=== PATIENT | female | born 1950 | race Caucasian/White ===

== ENCOUNTER 2018-01-01 12:15 | Day surgery (SDC) | payer OTHER ==
[2017-12-28 11:42] LABS: Absolute Monocytes 0.5 K/uL (0.1-1.3); Absolute Neutrophil 3.2 K/uL (1.8-8.0); Basophils % 0.9 % (0-1.3); Eosinophils % 4.1 % (0-4.4); Hematocrit 37.4 % (36.0-45.0); Lymphocytes % 33.7 % (15.3-44.8); MCH 30.9 pg (27.0-35.0); MCV 92.6 fL (80-100); MPV 10.2 fL (7.6-11.3); Monocytes % 8.2 % (3.3-12.3); RBC Red Blood Cell Count 4.04 M/uL (3.86-4.86)
--- NOTE | 2017-12-28 12:46 | EKG ---
Test Date: 2017-12-28 Test Time: 10:47:32 Registered Diet Technician: HAY MEASUREMENT RESULTS: Intervals: Rate: 60 LA: 146 QRSD: 80 QT: 428 QTc: 428 [place]: P: -1 LA: 146 QRS: 5 T: 23 INTERPRETIVE STATEMENTS: Normal sinus rhythm Normal ECG Compared to ECG 03/20/2017 10:32:27 No significant changes Electronically Signed On 12-28-17 12:45:51 CDT by Yamil Zamarripa
--- OUTSIDE RECORDS SUMMARY | 2018-01-01 12:20 | XMS REPORT | Clinical Summary ---
:1950 Author Organization [facility] Address [address] [place] [address] Phone Care Team Providers Name Role Phone Unavailable Primary Care Provider Unavailable Allergies Active Allergy Reactions Severity Noted Date Comments Meperidine 02/09/2017 Adhesive Tape 02/09/2017 Not allergic to paper tape. Current Medications Prescription Sig. Disp. Refills Start Date End Date Status tolterodine (DETROL LA) 4 Take 4 mg by mouth Active MG 24 hr capsule daily. levothyroxine (SYNTHROID, Take 75 mcg by Active LEVOTHROID) 75 MCG tablet mouth Every morning on an empty stomach. lansoprazole (PREVACID) Take 30 mg by mouth Active 30 MG capsule daily. aspirin 81 MG EC tablet Take 81 mg by mouth Active daily. clonazePAM (KLONOPIN) 0.5 Take 0.5 mg by Active MG tablet mouth 2 (two) times daily as needed for Anxiety. buPROPion (WELLBUTRIN XL) Take 300 mg by Active 300 MG 24 hr tablet mouth daily. citalopram (CELEXA) 40 MG Take 40 mg by mouth Active tablet daily. traMADol (ULTRAM-ER) 100 Take 100 mg by Active MG 24 hr tablet mouth daily. gabapentin (NEURONTIN) Take 300 mg by Active 300 MG capsule mouth 3 (three) times daily. meloxicam (MOBIC) 7.5 MG Take 7.5 mg by Active tablet mouth daily. HYDROcodone-acetaminophen Take 1 tablet by Active (NORCO 7.5-325) 7.5-325 mouth every 6 (six) mg per tablet hours as needed for Pain. TiZANidine (ZANAFLEX) 4 Take 4 mg by mouth Active MG capsule 3 (three) times daily. memantine (NAMENDA) 10 MG Take 10 mg by mouth Active tablet 2 (two) times daily. Missing or Non-Formulary laxative . Active Medication Active Problems Not on file Encounters Date Type Specialty Care Team Description 02/09/2017 Emergency Emergency Medicine Antonietta Alvarez Anxiety reaction MD Alexandre (Primary Dx);Shaking 02/09/2017 Orders Only General Internal Medicine after 12/31/2016 Social History Tobacco Use Types Packs/Day Years Used Date Never Smoker Smokeless Tobacco: Never Used Alcohol Use Drinks/Week oz/Week Comments No Sex Assigned at Date Recorded Not on file Last Filed Vital Signs Vital Sign Reading Time Taken Blood Pressure 120/63 02/09/2017 7:55 PM CDT Pulse 65 02/09/2017 7:59 PM CDT Temperature 36.7 C (98.1 F) 02/09/2017 7:59 PM CDT Respiratory Rate 18 02/09/2017 4:50 PM CDT Oxygen Saturation 97% 02/09/2017 7:59 PM CDT Inhaled Oxygen Concentration - - Weight 106.6 kg (235 lb) 02/09/2017 4:14 PM CDT Height 165.1 cm (5' 5") 02/09/2017 4:14 PM CDT Body Mass Index 39.11 02/09/2017 4:14 PM CDT Plan of Treatment Not on file Results CT brain without IV contrast (02/09/2017 6:46 PM) Specimen Performing Laboratory RIS Narrative FINAL REPORT CT Head without contrast CLINICAL HISTORY: Seizures new or progressive headache Episode of Care: Initial TECHNIQUE: Contiguous axial images through the head without contrast. This exam was performed according to the departmental dose optimization program which includes automated exposure control, adjustment of the mA and/or kV according to the patient size, and/or use of an iterative reconstruction technique. COMPARISON: None FINDINGS: There is no CT evidence of acute infarct or intracranial hemorrhage. There is no hydrocephalus, midline shift, or apparent mass effect. There are no extra-axial fluid collections. The skull is intact. The visualized paranasal sinuses are well-aerated. IMPRESSION: No CT evidence of acute infarct, hemorrhage, or hydrocephalus. Signed: Devorah Smith MD Report Verified Date/Time:02/09/2017 18:57:54 Reading Location: [facility] Radiology Reading Room Procedure Note Interface, External Ris In - 02/09/2017 7:00 PM CDT FINAL REPORT CT Head without contrast CLINICAL HISTORY: Seizures new or progressive headache Episode of Care: Initial TECHNIQUE: Contiguous axial images through the head without contrast. This exam was performed according to the departmental dose optimization program which includes automated exposure control, adjustment of the mA and/or kV according to the patient size, and/or use of an iterative reconstruction technique. COMPARISON: None FINDINGS: There is no CT evidence of acute infarct or intracranial hemorrhage. There is no hydrocephalus, midline shift, or apparent mass effect. There are no extra-axial fluid collections. The skull is intact. The visualized paranasal sinuses are well-aerated. IMPRESSION: No CT evidence of acute infarct, hemorrhage, or hydrocephalus. Signed: Devorah Smith MD Report Verified Date/Time: 02/09/2017 18:57:54 Reading Location: [facility] Radiology Reading Room Urinalysis w/Microscopic (02/09/2017 6:28 PM) Component Value Ref Range Color, UA Light Yellow Clarity, UA Clear Specific [place], UA 1.006 1.001 - 1.035 pH, UA 6.5 5.0 - 8.0 Protein, UA Negative Negative Glucose, UA Negative Negative Ketones, UA Negative Negative Bilirubin, UA Negative Negative Blood, UA Negative Negative Nitrite, UA Negative Negative Leukocytes, UA Trace (A) Negative Urobilinogen, UA 0.2 0.2 - 1.0 mg/dL RBC, UA <1 /HPF WBC, UA 2 /HPF Squam Epithel, UA 1 /HPF Specimen Source Urine, Voided Specimen Performing Laboratory Urine - Urine, Voided [facility] [address] [address] XR chest PA or AP 1 view in dept (02/09/2017 4:43 PM) Specimen Performing Laboratory GE RIS Narrative FINAL REPORT TECHNIQUE: Frontal chest radiograph dated 02/09/2017. CLINICAL HISTORY: Chest pain COMPARISON STUDY: None IMPRESSION: Prominent interstitial lung markings are seen, a nonspecific finding, due to either interstitial edema or pneumonitis. No focal consolidation. No pleural effusion or pneumothorax. Cardiomediastinal silhouette is normal in size. No pulmonary edema. Midline sternotomy ires are intact and well aligned. No fracture. Signed: Rabia Benjamin MD Report Verified Date/Time:02/09/2017 16:55:35 Reading Location: [facility] Radiology Reading Room Procedure Note Interface, External Ris In - 02/09/2017 4:57 PM CDT FINAL REPORT TECHNIQUE: Frontal chest radiograph dated 02/09/2017. CLINICAL HISTORY: Chest pain COMPARISON STUDY: None IMPRESSION: Prominent interstitial lung markings are seen, a nonspecific finding, due to either interstitial edema or pneumonitis. No focal consolidation. No pleural effusion or pneumothorax. Cardiomediastinal silhouette is normal in size. No pulmonary edema. Midline sternotomy ires are intact and well aligned. No fracture. Signed: Rabia Benjamin MD Report Verified Date/Time: 02/09/2017 16:55:35 Reading Location: [facility] Radiology Reading Room /aPTT (02/09/2017 4:21 PM) Component Value Ref Range Protime 14.1 11.7 - 14.7 seconds INR 1.1 <=5.9 PTT 29.8 22.5 - 36.0 seconds Specimen Performing Laboratory Blood - Line, [place] [address] Narrative RECOMMENDED COUMADIN/WARFARIN INR THERAPY RANGES STANDARD DOSE: 2.0 - 3.0 Includes: PROPHYLAXIS for venous thrombosis, systemic embolization; TREATMENT for venous thrombosis and/or pulmonary embolus. HIGH RISK: Target INR is 2.5-3.5 for patients with mechanical heart valves. CBC with platelet count + automated diff (02/09/2017 4:21 PM) Component Value Ref Range WBC 6.3 3.5 - 10.5 K/L RBC 3.63 (L) 3.93 - 5.22 M/L Hemoglobin 11.4 11.2 - 15.7 GM/DL Hematocrit 35.5 34.1 - 44.9 % MCV 97.8 (H) 79.4 - 94.8 fL MCH 31.4 25.6 - 32.2 pg MCHC 32.1 (L) 32.2 - 35.5 GM/DL RDW 13.4 11.7 - 14.4 % Platelets 149 (L) 150 - 450 K/CU MM MPV 11.5 9.4 - 12.3 fL nRBC 0 0 - 0 /100 WBC % Neutros 47 % % Lymphs 39 % % Monos 9 % % Eos 4 % % Baso 1 % # Neutros 2.95 1.56 - 6.13 K/L # Lymphs 2.43 1.18 - 3.74 K/L # Monos 0.55 (H) 0.24 - 0.36 K/L # Eos 0.26 0.04 - 0.36 K/L # Baso 0.06 0.01 - 0.08 K/L Immature Granulocytes-Relative 0 0 - 1 % Specimen Performing Laboratory Blood - Line, Venous [address] [address] Troponin I (02/09/2017 4:21 PM) Component Value Ref Range Troponin I <0.01 0.00 - 0.03 ng/mL Specimen Performing Laboratory Blood - Line, [address] [address] Narrative Troponin I (TnI) levels must be interpreted in the context of the presenting symptoms and the clinical findings. Elevated TnI levels indicate myocardial damage, but are not specific for ischemic heart disease. Elevated TnI levels are seen in patients with other cardiac conditions (including myocarditis and congestive heart failure), and slight TnI elevations occur in patients with other conditions, including sepsis, renal failure, acidosis, acute neurological disease, and persistent tachyarrhythmia. CBC with platelet count + automated diff (02/09/2017 4:21 PM) Specimen Performing Laboratory Blood Narrative The following orders were created for panel order CBC with platelet count + automated diff. Procedure Abnormality Status --------- ------ CBC with platelet count ...[[id number]]AbnormalFinal result Please view results for these tests on the individual orders. Creatine Kinase (CK), Total and MB (02/09/2017 4:21 PM) Component Value Ref Range Total CK 108 29 - 200 U/L CK-MB 0.8 0.0 - 6.6 ng/mL MB Relative Index 0.7 % Specimen Performing Laboratory Blood - Line, Venous [address] [address] Narrative CK-MB Reference Range: <6.7Normal 6.7-10.0Borderline >10.0 Abnormal Basic Metabolic Panel (02/09/2017 4:21 PM) Component Value Ref Range Sodium 142 136 - 145 meq/L Potassium 4.4 3.5 - 5.1 meq/L Chloride 107 98 - 107 meq/L CO2 29 22 - 29 meq/L BUN 12 7 - 21 mg/dL Creatinine 1.17 0.57 - 1.25 mg/dL Glucose 96 70 - 105 mg/dL Calcium 9.1 8.4 - 10.2 mg/dL EGFR Comment: INSUFFICIENT CLINICAL DATA TO CALCULATE mL/min/1.73 sq m ESTIMATED GFR. Specimen Performing Laboratory Blood - Line, Venous [address] [address] POC-Glucose meter (02/09/2017 4:20 PM) Component Value Ref Range POC-Glucose Meter 105Comment: TESTED AT [address] 70 - 110 mg/dL [id number] Specimen Performing Laboratory Blood [address] [address] ECG 12 lead (02/09/2017 4:17 PM) Specimen Performing Laboratory GE MUSE Narrative Ventricular Rate 72 BPM Atrial Rate 340 BPM P-R Interval 110 ms QRS Duration 76 ms Q-T Interval 406 ms QTC Calculation(Bazett) 444 ms P [place] -30 degrees R [place] 0 degrees T [place] 5 degrees Poor data quality, interpretation may be adversely affected Atrial flutter Nonspecific ST abnormality Abnormal ECG No previous ECGs available Confirmed by Rosie Edwards Alireaz ([id number]) on 02/10/2017 10:38:52 AM Procedure Note Interface, External Ris In - 02/10/2017 10:39 AM CDT Ventricular Rate 72 BPM Atrial Rate 340 BPM P-R Interval 110 ms QRS Duration 76 ms Q-T Interval 406 ms QTC Calculation(Bazett) 444 ms P [place] -30 degrees R [place] 0 degrees T [place] 5 degrees Poor data quality, interpretation may be adversely affected Atrial flutter Nonspecific ST abnormality Abnormal ECG No previous ECGs available Confirmed by Rosie Edwards Alireaz ([id number]) on 02/10/2017 10:38:52 AM after 12/31/2016
--- OUTSIDE RECORDS SUMMARY | 2018-01-01 12:34 | XMS REPORT | Continuity of Care Document ---
:1950 Author Organization Interface Problems Problem Status Onset Classification Date Comments Source Date Reported SBO Active 01/03/[address] DECONDITIONED Active 05/31/19 MH 14 [facility] ABDOMINAL PAIN, Active 05/30/19 HERNIA 14 [facility] AF - Atrial Active 09/14/19 Problem 01/07/2016 fibrillation 12 [facility] AF - Atrial Active 09/14/19 Problem 09/23/2011 fibrillation 12 [facility] Central line Active 09/11/19 Problem 01/07/2016 insertion 12 [facility] Endotracheal Active 09/11/19 Problem 01/07/2016 intubation 12 [facility] Central line Active 09/11/19 Problem 09/23/2011 insertion 12 [facility] Endotracheal Active 09/11/19 Problem 09/23/2011 intubation 12 [facility] [D]Abdominal pain Active 09/10/19 Problem 01/07/2016 12 [facility] Low blood pressure Active 09/10/19 Problem 01/07/2016 12 [facility] [D]Abdominal pain Active 09/10/19 Problem 09/23/2011 12 [facility] Low blood pressure Active 09/10/19 Problem 09/23/2011 12 [facility] Hernia repair Active 09/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/07/2016 12 [facility] Lysis of adhesions Active 09/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/07/2016 12 [facility] Panniculectomy Active 09/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/07/2016 12 [facility] Recurrent ventral Active 09/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/07/2016 hernia 12 [facility] Hernia repair Active 09/09/19 Problem 09/23/2011 12 [facility] Lysis of adhesions Active 09/09/19 Problem 09/23/2011 12 [facility] Panniculectomy Active 09/09/19 Problem 09/23/2011 12 [facility] Recurrent ventral Active 09/09/19 Problem 09/23/2011 hernia 12 [facility] INCISIONAL HERNIA Active 08/26/19 [id number] [id number] [place] [address] 789.06/787.01 Active 06/24/[address] Cholecystectomy Active Problem 01/07/2016 [facility] Depression Resolved Problem 01/07/2016 [facility] Gastric stapling Active Problem 01/07/2016 [facility] HTN - Hypertension Active Problem 01/07/2016 [facility] Hypothyroidism Resolved Problem 01/07/2016 [facility] 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 [facility] PUD - Peptic ulcer Active Problem 01/07/2016 disease [facility] Small bowel Resolved Problem 01/07/2016 [facility] Cholecystectomy Active Problem 09/23/2011 [facility] Gastric stapling Active Problem 09/23/2011 [facility] HTN - Hypertension Active Problem 09/23/2011 [facility] Idiopathic Active Problem 09/23/2011 hypotension [facility] PUD - Peptic ulcer Active Problem 09/23/2011 disease [facility] INCISIONAL HERNIA Active [facility] VENTRAL HERNIA NOS Active [facility] ILLNESS, Active [facility][note 3] UNSPECIFIED [facility] PAIN IN LIMB Active [facility] Medications Medication Details Route Status Patient Ordering Order Source Instructions Provider Date tolterodine 4 mg, 1 cap, No Longer Route: PO, Drug Active 2015 [facility] form: CAP, [facility] Daily, Dosing Weight 105.625, kg, Start date: 01/05/16 9:00:00 CDT, Duration: 30 day, Stop date: 02/03/16 9:00:00 CDT Synthroid 50 microgram, 1 No Longer tab, Route: PO, Active 2015 [facility] Drug form: TAB, [facility] Daily, Dosing Weight 105.625, kg, Start date: 01/05/16 9:00:00 CDT, Duration: 30 day, Stop date: 02/03/16 9:00:00 CDTNotes: Take 1 hour before or 2 hours after meal; Enteral feeds may interefere with the absorption of this medication.(Jhonatan e as:Levothroid, Synthroid) Bupropion 150 mg, 1 tab, No Longer Route: PO, Drug Active 2015 [facility] form: ERTAB, [facility] Daily, Dosing Weight 105.625, kg, Start date: 01/05/16 9:00:00 CDT, Duration: 30 day, Stop date: 02/03/16 9:00:00 CDT Citalopram 60 mg, 3 tab, No Longer Route: PO, Drug Active 2015 [facility] form: TAB, [facility] Daily, Dosing Weight 105.625, kg, Start date: 01/05/16 9:00:00 CDT, Duration: 30 day, Stop date: 02/03/16 9:00:00 CDTNotes: (Same As: CeleXA) Trazodone 100 mg, 2 tab, Inactive Hydrochloride Route: PO, Drug 2015 [facility] 100 MG Oral form: TAB, [facility] Tablet Bedtime, Dosing Weight 105.625, kg, Start date: 01/04/16 21:00:00 CDT, Duration: 30 day, Stop date: 02/02/16 21:00:00 CDTNotes: (Same As: Desyrel) tizanidine 4 mg, 1 tab, Inactive Route: PO, Drug 2015 [facility] form: TAB, [facility] Q12H, Dosing Weight 105.625, kg, Start date: 01/04/16 21:00:00 CDT, Duration: 30 day, Stop date: 02/03/16 9:00:00 CDTNotes: (Same As: Zanaflex) tizanidine 4 mg 4 mg=1 tab, PO, Active oral tablet Q12H, 0 2015 [facility] Refill(s) [facility] gabapentin 300 300 mg, 1 cap, Inactive MG Oral Capsule Route: PO, Drug 2015 [facility] form: CAP, QID, [facility] Dosing Weight 105.625, kg, Start date: 01/04/16 17:00:00 CDT, Duration: 30 day, Stop date: 02/03/16 13:00:00 CDTNotes: (Same as: Neurontin) Bisacodyl 10 mg, 2 tab, Inactive Route: PO, Drug 2015 [facility] form: ECTAB, [place] Daily, Dosing Weight 105.625, kg, PRN Constipation, Start date: 01/04/16 15:49:00 CDT, Duration: 30 day, Stop date: 02/03/16 15:48:00 CDT Clonazepam 0.5 mg, 1 tab, Inactive Route: PO, Drug 2015 [facility] form: TAB, TID, [facility] Dosing Weight 105.625, kg, Start date: 01/04/16 9:00:00 CDT, Duration: 30 day, Stop date: 02/02/16 17:00:00 CDTNotes: (Same As: KlonoPIN) Tylenol 650 mg, 20.3 Inactive mL, Route: PO, 2015 [facility] Drug form: LIQ, [facility] Q4H, Dosing Weight 105.625, kg, PRN Headache 1-5, Start date: 01/04/16 2:51:00 CDT, Duration: 30 day, Stop date: 02/03/16 2:50:00 CDTNotes: Max acetaminophen=4 000mg/day (4 gm/day). (Same as: Tylenol) Tylenol 650 mg, 2 tab, Inactive Route: PO, Drug 2015 [facility] form: TAB, [facility] ONCE, Dosing Weight 105.625, kg, PRN Headache 1-5, Start date: 01/03/16 22:02:00 CDT, Stop date: 02/02/16 22:01:00 CDTNotes: Do not exceed 4 gm/day. (Same as: Tylenol) Benadryl 25 mg, 0.5 mL, Inactive Route: IVP, 2015 [facility] Drug form: INJ, [facility] ONCE, Dosing Weight 105.625, kg, PRN Insomnia, Start date: 01/03/16 21:02:00 CDTNotes: (Same as: Benadryl) phenol 1 spray, Route: No Longer TOP, Daily, Active 2015 [facility] Drug form: [place] SPRY, PRN Sore Throat, Start date: 01/03/16 20:57:00 CDT, Duration: 30 day, Stop date: 02/02/16 20:56:00 CDTNotes: Chloraseptic [place] (Same as: Chloraseptic, Sore Throat [place]) WASTE: F/P - Black; E - Municipal Trash Bin Saline Flush 10 mL, Route: No Longer 0.9% IVP, Drug Form: Active 2015 [facility] INJ, Dosing [place] Weight 105.625, kg, Q8H, Start date: 01/03/16 16:00:00 CDT, Duration: 30 day, Stop date: 02/02/16 8:00:00 CDTNotes: (Same as: BD Posiflush) Lidocaine 5 mL, Route: No Longer 01/02/ Hydrochloride INTRADERM, Drug Active 2015 [facility] 10 MG/ML Form: INJ, [place] Injectable Dosing Weight Solution 105.625, kg, ONCALL, Start date: 01/03/16 14:00:00 CDT, Duration: 30 day, Stop date: 02/02/16 13:59:00 CDTNotes: Preservative free. (Same as: Xylocaine MPF) Sodium Chloride 25 mL, Route: No Longer 01/02/ 0.9% IV IVP, Start Active 2015 [facility] date: 01/03/16 [facility] 13:57:00 CDT, Duration: 30 day, Stop date: 02/02/16 13:56:00 CDT, PRN Line Flush BD Normal 10 mL, Route: No Longer MH Saline Flush IVP, Drug Form: Active 2015 [facility] INJ, PRN, PRN [place] Line Flush, Start date: 01/03/16 13:57:00 CDT, Duration: 30 day, Stop date: 02/02/16 13:56:00 CDTNotes: (Same as: BD Posiflush) BD Normal 5 mL, Route: No Longer MH Saline Flush IVP, Drug Form: Active 2015 [facility] INJ, PRN, PRN [place] Line Flush, Start date: 01/03/16 13:56:00 CDT, Duration: 30 day, Stop date: 02/02/16 13:55:00 CDTNotes: (Same as: BD Posiflush) Saline Flush 10 mL, Route: Inactive 0.9% IVP, Drug Form: 2015 [facility] INJ, Dosing [place] Weight 105.625, kg, PRN, PRN Line Flush, Start date: 01/03/16 13:52:00 CDT, Duration: 30 day, Stop date: 02/02/16 13:51:00 CDT BD Normal 5 mL, Route: No Longer MH Saline Flush IVP, Drug Form: Active 2015 [facility] INJ, PRN, PRN [place] Line Flush, Start date: 01/03/16 13:35:00 CDT, Duration: 30 day, Stop date: 02/02/16 13:34:00 CDTNotes: (Same as: BD Posiflush) Sodium Chloride 25 mL, Route: No Longer 0.9% IV IVP, Start Active 2015 [facility] date: 01/03/16 [facility] 13:35:00 CDT, Duration: 30 day, Stop date: 02/02/16 13:34:00 CDT, PRN Line Flush D5W 1/2NS + KCL 1,000 mL, Rate: No Longer 20mEq/L 1000ml 75 ml/hr, Active 2015 [facility] (Premix) 1,000 Infuse over: City mL 13.3 hr, Route: IV, Dosing Weight 105.625 kg, Total Volume: 1,000, Start date: 01/03/16 13:31:00 CDT, Stop date: 02/02/16 13:30:00 CDTNotes: PREMIX IV - Do Not Alter WASTE: F/P - Sink; E - Municipal Trash Bin Saline Flush 10 mL, Route: Inactive 0.9% IVP, Drug Form: 2015 [facility] INJ, Dosing [facility] Weight 105.625, kg, PRN, PRN Line Flush, Start date: 01/03/16 13:30:00 CDT, Duration: 30 day, Stop date: 02/02/16 13:29:00 CDT Morphine 10 mg, 1 mL, Inactive Route: IM, Drug 2015 [facility] form: INJ, [facility] ONCE, Dosing Weight 105.625, kg, Priority: STAT, Start date: 01/03/16 13:26:00 CDT, Stop date: 01/03/16 13:26:00 CDTNotes: (Same as:MORPhine Sulfate) Pepcid 20 mg, 2 mL, No Longer Route: IVP, Active 2015 [facility] Drug form: INJ, [facility] Q12H, Start date: 01/03/16 9:00:00 CDT, Duration: 30 day, Stop date: 02/01/16 21:00:00 CDTNotes: (Same as: Pepcid) Can be dilute in 5-10cc NS IVP: Slow IV push over at least 2 minutes. Protonix 40 mg, Route: Inactive IVP, Daily, 2015 [facility] Dosing Weight [facility] 105.625, kg, Patient is NPO, Start date: 01/03/16 9:00:00 CDT, Duration: 30 day, Stop date: 02/01/16 9:00:00 CDT Enoxaparin 40 mg, 0.4 mL, No Longer Route: SUB-Q, Active 2015 [facility] Drug form: INJ, [facility] [id number], Dosing Weight 105.625, kg, Consider for obese patients, Start date: 01/03/16 4:00:00 CDT, Duration: 30 day, Stop date: 02/01/16 16:00:00 CDTNotes: (Same as: Lovenox) Citalopram 60 mg, PO, Active Daily, 0 2015 [facility] Refill(s) [facility] tolterodine 4 4 mg=1 cap, PO, Active mg oral Daily, # 30 [facility] capsule, cap, 1 [facility] extended Refill(s) release gabapentin 300 300 mg=1 cap, Active MG Oral Capsule PO, QID, 0 2015 [facility] Refill(s) [facility] Hydroxyzine 25 mg=1 cap, Active Hydrochloride PO, Bedtime, 2016 [facility] 25 MG Oral PRN Insomnia, 0 [facility] Capsule Refill(s) Trazodone 100 mg=1 tab, Active Hydrochloride PO, Bedtime, # 2016 [facility] 100 MG Oral 30 tab, 0 [facility] Tablet Refill(s) tizanidine 4 mg 8 mg=2 tab, PO, No Longer oral tablet Q8H, # 180 tab, Active 2015 [facility] 0 Refill(s) [facility] meloxicam 7.5 7.5 mg=1 tab, No Longer mg oral tablet PO, Daily, # 30 Active 2015 [facility] tab, 0 [facility] Refill(s) Acetaminophen 1 tab, PO, Q6H, No Longer 325 MG / PRN Pain, # 60 Active 2015 [facility] Hydrocodone tab, 0 [facility] Bitartrate 7.5 Refill(s) MG Oral Tablet bisacodyl 5 mg 10 mg=2 tab, Active oral enteric PO, Daily, PRN 2016 [facility] coated tablet Constipation, # City 20 tab, 0 Refill(s) Bupropion 150 mg, PO, 0 Active Refill(s) 2015 [facility] clonazePAM 0.5 0.5 mg=1 tab, No Longer mg oral tablet PO, Q6H, PRN Active 2015 [facility] Anxiety, 0 [place] Refill(s) Saline Flush 10 ml, Route: Inactive 0.9% IVP, Drug Form: 2015 [facility] INJ, Dosing [place] Weight 105.625, kg, PRN, PRN Line Flush, Start date: 01/03/16 3:12:00 CDT, Duration: 30 day, Stop date: 02/02/16 3:11:00 CDTNotes: (Same as: BD Posiflush) Ondansetron 4 mg, 2 mL, No Longer Route: IVP, Active 2015 [facility] Drug form: INJ, [place] Q6H, Dosing Weight 105.625, kg, PRN Nausea & Vomiting, Start date: 01/03/16 3:12:00 CDT, Duration: 30 day, Stop date: 02/02/16 3:11:00 CDTNotes: (Same as: Zofran) MEDICATION WASTE Product Size: 4 mg Product Wasted: ___ mg Morphine 4 mg, 1 mL, No Longer Route: IVP, Active 2015 [facility] Drug form: INJ, [place] Q4H, Dosing Weight 105.625, kg, PRN Pain Score 7-10, Start date: 01/03/16 3:12:00 CDT, Stop date: 02/02/16 3:11:00 CDTNotes: (Same as:MORPhine Sulfate) Sodium Chloride 1,000 mL, Rate: Inactive 0.154 MEQ/ML 125 ml/hr, 2015 [facility] Injectable Infuse over: 8 [place] Solution hr, Route: IV, Dosing Weight 105.625 kg, Total Volume: 1,000, Start date: 01/03/16 3:12:00 CDT, Duration: 30 day, Stop date: 02/02/16 3:11:00 CDT Lidoderm 5% 1 patch, TOP, Active Estephania topical film Daily, Remove [address] [place] [address] (patch) after 12 hours, # 30 patch, 0 Refill(s), given to patientRemove after 12 hours citalopram 20 20 mg=1 tab, Active Ajmani [facility] mg oral tablet PO, BID-After 2013 Meals, # 60 tab, 0 Refill(s), given to patient rivastigmine =1 patch, TOP, Active Anigbogu 06/20/ MH 4.6 mg/24 hr Daily, # 30 2013 [facility] transdermal patch, 0 film, extended Refill(s) release mirtazapine 15 7.5 mg=0.5 tab, Active Anigbogu 06/20/ MH mg oral tablet PO, Bedtime, # 2013 30 tab, 0 Refill(s) Exelon 4.6 mg, 1 No Longer Raichman patch, Route: Active 2013 [facility] TOP, Drug form: ERFILM, Daily, Start date: 06/17/13 9:00:00, Duration: 30 day, Stop date: 07/16/13 9:00:00Same as Exelon "Remove old patch before application of new patch" Lidoderm 5% 1 patch, Route: No Longer Anigbogu topical film TOP, Daily, Active 2013 [facility] (patch) Drug form: FILM, Start date: 06/17/13 9:00:00, Duration: 30 day, Stop date: 07/16/13 9:00:00, Remove after 12 hoursRemove after 12 hoursApply only once for up to 12 hours in a 24-hour period (12 hours on and 12 hours off). (Same as: Lidoderm) "Remove old patch before application of new patch" CeleXA 20 mg, 1 tab, No Longer Raichman Route: PO, Drug Active 2013 [facility] form: TAB, BID-After Meals, Start date: 06/17/13 8:30:00, Duration: 30 day, Stop date: 07/16/13 13:00:00(Same As: CeleXA) Remeron 7.5 mg, 0.5 No Longer Anigbogu MH tab, Route: PO, Active 2013 [facility] Drug form: TAB, Bedtime, Start date: 06/15/13 21:00:00, Duration: 30 day, Stop date: 07/14/13 21:00:00(Same as:Remeron) Singulair 10 mg, 1 tab, No Longer Anigbogu Route: PO, Drug Active 2013 [facility] form: TAB, Bedtime, Start date: 06/14/13 21:00:00, Duration: 30 day, Stop date: 07/13/13 21:00:00(Same as:Singulair) fluticasone 2 inhalation, No Longer Anigbogu nasal 0.05 Route: NASAL, Active 2013 [facility] mg/inh spray Drug Form: SPRY, BID, Start date: 06/14/13 9:00:00, Duration: 30 day, Stop date: 07/13/13 17:00:00(Same as: Flonase) Claritin 10 mg, 1 tab, No Longer Anigbogu Route: PO, Drug Active 2013 [facility] form: TAB, Daily, Start date: 06/14/13 9:00:00, Duration: 30 day, Stop date: 07/13/13 9:00:001 hr before meals (Same as: Claritin) polyethylene 17 gm, 1 pkt, No Longer Anigbogu glycol 3350 Route: PO, Drug Active 2013 [facility] form: PWDR, Daily, Dosing Weight 105.455, kg, Start date: 06/14/13 9:00:00, Duration: 30 day, Stop date: 07/13/13 9:00:00Dissolve in 8 oz of water or juice. (Same as: Miralax) Senokot 8.6 mg, 1 tab, No Longer Anigbogu Route: PO, Drug Active 2013 [facility] form: TAB, BID, Start date: 06/14/13 9:00:00, Duration: 30 day, Stop date: 07/13/13 17:00:00(Same as: Senokot) PROzac 40 mg, 2 cap, No Longer Anigbogu Route: NG, Drug Active 2013 [facility] form: CAP, Daily, Start date: 06/14/13 9:00:00, Duration: 30 day, Stop date: 07/13/13 9:00:00(Same as: Prozac, Sarafem) Mycelex Shaina 10 mg, 1 No Longer Anigbogu lozenge, Route: Active 2013 [facility] MUCOUS MEM, Drug form: WINSTON, TID, Start date: 06/14/13 8:00:00, Duration: 30 day, Stop date: 07/13/13 21:00:00(Same As: Mycelex Shaina) Levothroid 50 microgram, 1 No Longer Anigbogu tab, Route: PO, Active 2013 [facility] Drug form: TAB, [id number], Start date: 06/14/13 6:30:00, Duration: 30 day, Stop date: 07/13/13 6:30:00Take 1 hour before or 2 hours after meal; Enteral feeds may interefere with the absorption of this medication.(Jhonatan e as:Levothroid, Synthroid) vancomycin 750 mg, 150 mL, No Longer Anigbogu Route: IVPB, Active 2013 [facility] Drug form: SOLN, [id number], Start date: 06/14/13 3:00:00, Duration: 30 day, Stop date: 07/13/13 18:00:00Same as: Vancocin Lovenox 40 mg, 0.4 mL, No Longer Anigbogu Route: SUB-Q, Active 2013 [facility] Drug form: INJ, [id number], Start date: 06/13/13 23:00:00, Duration: 30 day, Stop date: 07/12/13 23:00:00(Same as: Lovenox) Restoril 15 mg, 1 cap, No Longer Anigbogu Route: PO, Drug Active 2013 [facility] form: CAP, Bedtime, PRN Sleep, Start date: 06/13/13 21:37:00, Duration: 30 day, Stop date: 07/13/13 21:36:00(Same As: Restoril) Ativan 1 mg, 2 tab, No Longer Anigbogu Route: PO, Drug Active 2013 [facility] form: TAB, Q4H, PRN Anxiety, Start date: 06/13/13 21:31:00, Stop date: 07/13/13 21:30:00(Same as: Ativan) acetaminophen-h 1 tab, Route: No Longer Anigbogu ydrocodone 325 PO, Drug Form: Active 2013 [facility] mg-5 mg oral TAB, Dosing tablet Weight 105.455, kg, Q4H, PRN Pain Score 1-3, Start date: 06/13/13 21:01:00, Duration: 30 day, Stop date: 07/13/13 21:00:00(Same as: [place] 325/5) Do not exceed 4gm/day of acetaminophen. acetaminophen 650 mg, 2 tab, No Longer Anigbogu Route: PO, Drug Active 2013 [facility] form: TAB, Q4H, Dosing Weight 105.455, kg, PRN Pain Score 1-3, Start date: 06/13/13 21:01:00, Duration: 30 day, Stop date: 07/13/13 21:00:00Do not exceed 4 gm/day. (Same as: Tylenol) Saline Flush 3 mL, Route: No Longer Anbogu 0.9% IVP, Drug Form: Active 2013 [facility] INJ, Dosing Weight 105.455, kg, Q8H, PRN Line Flush, Start date: 06/13/13 21:01:00, Duration: 30 day, Stop date: 07/13/13 21:00:00, Administer at least once every 8 hoursAdminister at least once every 8 hours(Same as: BD Posiflush) bisacodyl 10 mg, 1 supp, No Longer Anigbogu Route: SD, Drug Active 2013 [facility] form: SUPP, Bedtime, Dosing Weight 105.455, kg, PRN Constipation, Start date: 06/13/13 21:01:00, Duration: 30 day, Stop date: 07/13/13 21:00:00(Same As: Dulcolax, Bisco-Lax) temazepam 15 mg 15 mg=1 cap, Active Estephania oral capsule PO, Bedtime, 2013 [facility] Sleep, # 5 cap, 0 Refill(s) vancomycin 750 1,054.55 mg, Active Shanekai mg intravenous IV, Q24H, # 14 2013 [facility] injection bag, 0 Refill(s), called to pharmacy senna 8.6 mg 8.6 mg=1 tab, [facility] PO, BID, # 36 2013 [facility] tab, 0 Refill(s) LORazepam 1 mg 1 mg=1 tab, PO, Active mani MH oral tablet Q4H, Anxiety, # 2014 [facility] 10 tab, 0 Refill(s) loratadine 10 10 mg=1 tab, Active [facility] oral tablet PO, Daily, # 20 2013 [facility] tab, 0 Refill(s) fluticasone 100 microgram=2 Active [facility] nasal 0.05 inhalation, 2013 [facility] mg/inh spray NASAL, BID, # 1 ea, 0 Refill(s) enoxaparin 40 40 mg=0.4 mL, Active [facility] mg/0.4 mL SUB-Q, Q24H, # 2013 [facility] subcutaneous 30 mL, 0 solution Refill(s) clotrimazole 10 10 mg=1 Active [facility] mg oral lozenge lozenge, MUCOUS 2013 [facility] MEM, TID, # 90 lozenge, 0 Refill(s) clonazePAM 0.5 0.5 mg=1 tab, Active [facility] mg oral tablet PO, Daily, # 30 2013 [facility] tab, 0 Refill(s), called to pharmacy acetaminophen 650 mg=2 tab, Active [facility] 325 mg oral PO, Q6H, Pain, 2013 [facility] tablet # 50 tab, 0 Refill(s), called to pharmacy acetaminophen-h 1 tab, PO, Q4H, Active [facility] ydrocodone 325 Pain, # 12 tab, 2014 [facility] mg-10 mg oral 0 Refill(s), tablet called to pharmacy tolterodine 4 4 mg=1 cap, PO, Active [facility] mg oral Daily, # 30 2013 [facility] capsule, cap, 0 extended Refill(s), release called to pharmacy Lovenox 40 mg, 0.4 mL, No Longer [facility] Route: SUB-Q, Active 2013 [facility] Drug form: INJ, Q24H, Start date: 06/11/13 23:00:00, Duration: 30 day, Stop date: 07/10/13 23:00:00(Same as: Lovenox) acetaminophen-h 1 tab, Route: No Longer ydrocodone 325 PO, Drug Form: Active 2013 [facility] mg-5 mg oral TAB, ONCALL, tablet PRN Pain, Start date: 06/11/13 18:45:00, Duration: 30 day, Stop date: 07/11/13 18:44:00(Same as: [place] 325/5) Do not exceed 4gm/day of acetaminophen. Claritin 10 mg, 1 tab, No Longer Route: PO, Drug Active 2013 [facility] form: TAB, Daily, Start date: 06/11/13 9:00:00, Duration: 30 day, Stop date: 07/10/13 9:00:001 hr before meals (Same as: Claritin) Senokot 8.6 mg, 1 tab, No Longer Route: PO, Drug Active 2013 [facility] form: TAB, BID, Start date: 06/11/13 9:00:00, Duration: 30 day, Stop date: 07/10/13 17:00:00(Same as: Senokot) Mycelex Shaina 10 mg, 1 No Longer lozenge, Route: Active 2013 [facility] MUCOUS MEM, Drug form: WINSTON, TID, Start date: 06/10/13 21:00:00, Duration: 30 day, Stop date: 07/10/13 12:00:00(Same As: Mycelex Shaina) Singulair 10 mg, 1 tab, No Longer Route: PO, Drug Active 2013 [facility] form: TAB, Bedtime, Start date: 06/10/13 21:00:00, Duration: 30 day, Stop date: 07/09/13 21:00:00(Same as:Singulair) acetaminophen-h 1 tab, Route: No Longer ydrocodone 325 PO, Drug Form: Active 2013 [facility] mg-10 mg oral TAB, Q4H, PRN tablet Pain, Start date: 06/10/13 20:32:00, Duration: 30 day, Stop date: 07/10/13 20:31:00Do not exceed 4gm/day of acetaminophen. (Same as: [place] 325/10) Ativan 1 mg, 1 tab, No Longer Shaneka Route: PO, Drug Active 2013 [facility] form: TAB, Q4H, PRN Anxiety, Start date: 06/10/13 20:32:00, Duration: 30 day, Stop date: 07/10/13 20:31:00(Same as: Ativan) potassium 20 mEq, 100 mL, Inactive cinthia chloride Route: IVPB, 2013 [facility] Drug form: INJ, Q2H, Start date: 06/09/13 21:00:00, Duration: 2 doses or times, Stop date: 06/09/13 23:00:00(Same as: KCL) Infuse no faster than 10 mEq/hr if given peripherally. fluticasone 2 inhalation, No Longer hSaneka nasal 0.05 Route: NASAL, Active 2013 [facility] mg/inh spray Drug Form: SPRY, BID, Start date: 06/08/13 9:00:00, Duration: 30 day, Stop date: 07/07/13 17:00:00(Same as: Flonase) Benadryl 25 mg, 0.5 mL, No Longer [place]ka Route: IV, Drug Active 2013 [facility] form: INJ, Q12H, Start date: 06/07/13 21:00:00, Stop date: 07/07/13 9:00:00(Same as: Benadryl) amino acids 5% 2,000 mL, Rate: No Longer cinthiai w/Lytes/D15W 75 ml/hr, Active 2013 [facility] 2000ml Infuse over: (clinimixE) 26.8 hr, Route: 2,000 mL + IV, Dosing thiamine 100 mg Weight 105.455 + folic acid 1 kg, Total mg + phyto Volume: 2,011.3, Start date: 06/07/13 21:00:00, Duration: 30 day, Stop date: 07/07/13 20:59:00Same as: Clinimix E 5/15 Standard electrolytes for this formulation listed on bag fat emulsion, 250 mL, 31.25 No Longer intravenous ml/hr, Route: Active 2013 [facility] IV, Drug Form: INJ, Daily, Start date: 06/07/13 21:00:00, Duration: 30 day, Stop date: 07/06/13 21:00:00(Same as: Intralipid, Liposyn) potassium 40 mEq, 200 mL, Inactive chloride Route: IVPB, 2013 [facility] Drug form: INJ, ONCE, Start date: 06/07/13 20:02:00, Stop date: 06/07/13 20:02:00(Same as: KCL) Infuse no faster than 10 mEq/hr if given peripherally. Lasix 40 mg, 4 mL, Inactive Route: IV, Drug 2013 [facility] form: INJ, ONCE, Start date: 06/07/13 20:01:00, Stop date: 06/07/13 20:01:00(Same as: Lasix) nystatin susp nystatin susp No Longer 30 ml+lidocaine 30 ml+lidocaine Active 2013 [facility] visc 30 ml visc 30 ml, 5 mL, Drug form: MISC, Route: S&SWALLOW, Q3H-WA, 06/07/13 20:00:00, Stop date: 07/07/13 17:00:00 Lovenox 100 mg, 1 mL, No Longer Route: SUB-Q, 2013 [facility] Drug form: INJ, [id number], Start date: 06/07/13 20:00:00, Duration: 30 day, Stop date: 07/06/13 20:00:00Nurse to ensure documentation of patient education per anticoagulation policy. (Same as: Lovenox) Diflucan 200 mg, 100 mL, No Longer Route: IVPB, Active 2013 [facility] Drug form: INJ, [id number], Start date: 06/07/13 20:00:00, Duration: 30 day, Stop date: 07/06/13 20:00:00(Same as: Diflucan) Do not refrigerate amino acids 1,000 mL, Rate: No Longer 4.25% 90 ml/hr, Active 2013 [facility] w/Lytes/D5W Infuse over: 1000ml 11.1 hr, Route: (clinimixE) IV, Dosing 1,000 mL Weight 105.455 kg, Total Volume: 1,000, Start date: 06/07/13 12:26:00, Stop date: 06/08/13 21:00:00Same as: ClinimixE vancomycin 750 mg, 150 mL, No Longer Route: IVPB, Active 2013 [facility] Drug form: SOLN, [id number], Start date: 06/06/13 15:00:00, Duration: 30 day, Stop date: 07/06/13 3:00:00Same as: Vancocin Maxipime + 2 gm, Route: No Longer Sodium Chloride IVPB, [id number], Active 2013 [facility] 0.9% IV 100 mL Start date: 06/06/13 14:00:00, Duration: 30 day, Stop date: 07/06/13 6:00:00(Same as: Maxipime) Tylenol 650 mg, 1 supp, No Longer [place] Route: SD, Drug Active 2013 [facility] form: SUPP, Q4H, PRN Pain/Fever, Start date: 06/06/13 13:03:00, Stop date: 07/06/13 13:02:00Max acetaminophen=4 000 mg/day (4 gm/day). (Same as: Tylenol) Lasix 40 mg, 4 mL, Inactive [facility] Route: IV, Drug 2013 [facility] form: INJ, ONCALL, Start date: 06/06/13 13:00:00, Duration: 30 day, Stop date: 07/06/13 12:59:00(Same as: Lasix) Lasix 40 mg, 4 mL, Inactive [facility] Route: IV, Drug 2013 [facility] form: INJ, ONCE, Start date: 06/06/13 12:03:00, Stop date: 06/06/13 12:03:00(Same as: Lasix) potassium 40 mEq, 200 mL, Inactive [facility] chloride Route: IVPB, 2013 [facility] Drug form: INJ, ONCE, Start date: 06/06/13 12:03:00, Stop date: 06/06/13 12:03:00(Same as: KCL) Infuse no faster than 10 mEq/hr if given peripherally. Ativan 1 mg, 0.5 mL, No Longer Estephania Route: IV, Drug Active 2013 [facility] form: INJ, Q6H, Start date: 06/06/13 0:00:00, Duration: 30 day, Stop date: 07/05/13 18:00:00(Same as: Ativan) Venofer + 100 mg, 5 mL, No Longer Estephania Sodium Chloride Route: IV, Active 2013 [facility] 0.9% IV 100 mL Q24H, Start date: 06/05/13 21:00:00, Duration: 30 day, Stop date: 07/04/13 21:00:00 amino acids 1,000 mL, Rate: No Longer [place] 4.25% 90 ml/hr, Active 2013 [facility] w/Lytes/D5W Infuse over: 1000ml 11.1 hr, Route: (clinimixE) IV, Dosing 1,000 mL Weight 105.455 kg, Total Volume: 1,000, Start date: 06/05/13 20:40:00, Duration: 30 day, Stop date: 07/05/13 20:39:00Same as: ClinimixE ceFAZolin 2 gm, 100 mL, No Longer [place] Route: IVPB, Active 2013 [facility] Drug form: INJ, [id number], Start date: 06/05/13 20:00:00, Duration: 30 day, Stop date: 07/05/13 12:00:00Same as: Ancef promethazine 6.25 mg, Route: Inactive Nawaf IVPB, ONCE, 2013 [facility] Dosing Weight 105.455, kg, PRN Nausea & Vomiting, Start date: 06/05/13 17:43:00 ondansetron 4 mg, 2 mL, Inactive Nawaf Route: IVP, 2013 [facility] Drug form: INJ, ONCE, Dosing Weight 105.455, kg, PRN Nausea & Vomiting, Start date: 06/05/13 17:43:00(Same as: Zofran) naloxone 0.04 mg, 0.1 Inactive Nawaf mL, Route: IVP2013 [facility] Drug form: INJ, Q2MIN, Dosing Weight 105.455, kg, PRN Narcotic Reversal, Start date: 06/05/13 17:43:00, Duration: 8 doses or times, Stop date: 06/05/13 23:00:00(Same as: Narcan) flumazenil 0.2 mg, 2 mL, Inactive [place] 06/05[facility] Route: IVP2013 [facility] Drug form: INJ, PRN, Dosing Weight 105.455, kg, PRN Benzodiazepine Reversal, Initial dose, Start date: 06/05/13 17:43:00, Stop date: 06/05/13 23:00:00(Same as: Romazicon) meperidine 12.5 mg, Route: Inactive [place] 06/05[facility] IVP, Q30Min, 2013 [facility] Dosing Weight 105.455, kg, PRN Other -See Comment, For shivering, Start date: 06/05/13 17:43:00, Duration: 2 doses or times, Stop date: Limited # of times labetalol 10 mg, 2 mL, Inactive [place] 06/05[facility] Route: IVP2013 [facility] Drug form: INJ, Q5Min, Dosing Weight 105.455, kg, PRN Elevated BP, Start date: 06/05/13 17:43:00, Duration: 5 doses or times, Stop date: 06/05/13 23:00:00 hydrALAZINE 10 mg, 0.5 mL, Inactive [place] 06/05[facility] Route: IVP2013 [facility] Drug form: INJ, Q20Min, Dosing Weight 105.455, kg, PRN Elevated BP, Start date: 06/05/13 17:43:00, Duration: 2 doses or times, Stop date: 06/05/13 23:00:00(Same as: Apresoline) Push over 5 minutes hydromorphone 0.5 mg, 0.5 mL, Inactive [place] 06/05[facility] Route: IVP2013 [facility] Drug form: INJ, Q5Min, Dosing Weight 105.455, kg, PRN Pain Score 7-10, Start date: 06/05/13 17:43:00, Duration: 4 doses or times, Stop date: 06/05/13 23:00:00 fentanyl 25 microgram, Inactive [place] 0.5 mL, Route: 2013 [facility] IVP, Drug form: INJ, Q5Min, Dosing Weight 105.455, kg, PRN Pain Score 4-6, Start date: 06/05/13 17:43:00, Duration: 4 doses or times, Stop date: 06/05/13 23:00:00(Same as: Sublimaze) Preservative free. acetaminophen 1,000 mg, 100 Inactive [place] mL, Route: 2013 [facility] IVPB, Drug form: INJ, ONCE, Dosing Weight 105.455, kg, PRN Pain Score 1-3, Start date: 06/05/13 17:43:00, Duration: 1 doses or times, Stop date: Limited # of timesInfuse over 15 minutes Do not exceed 4gm/day of acetaminophen Protonix 40 mg, Route: No Longer [place] IVP, Drug form: Active 2013 [facility] INJ, Before Dinner, Dosing Weight 105.455, kg, Patient is NPO, Start date: 06/05/13 16:39:00, Duration: 30 day, Stop date: 07/05/13 16:30:00For IV push reconstitute with 10 ml 0.9% sodium chloride and push over 2 minutes. (Same as: Protonix) Lovenox 40 mg, 0.4 mL, No Longer [place] Route: SUB-Q, Active 2013 [facility] Drug form: INJ, [id number], Dosing Weight 105.455, kg, Start date: 06/05/13 16:00:00, Duration: 30 day, Stop date: 07/04/13 16:00:00(Same as: Lovenox) Ancef 2 gm, Route: Inactive [place] IVPB, [id number], 2013 [facility] Dosing Weight 105.455, kg, Start date: 06/05/13 16:00:00, Duration: 30 day, Stop date: 07/05/13 8:00:00 Zofran 4 mg, 2 mL, No Longer [place] Route: IV, Drug Active 2013 [facility] form: INJ, Q8H, Dosing Weight 105.455, kg, PRN Nausea, Start date: 06/05/13 15:42:00, Duration: 30 day, Stop date: 07/05/13 15:41:00(Same as: Zofran) fluorescein 500 mg, 5 mL, No Longer Ajmani ophthalmic Route: IV, Active 2013 [facility] ONCALL, Drug form: INJ, Start date: 06/05/13 12:00:00, Duration: 30 day, Stop date: 07/05/13 11:59:00(Same as: Fluorescite) Dulcolax 40 mg, 4 supp, Inactive Ajmani Laxative Route: SD, Drug 2013 [facility] form: SUPP, ONCE, Start date: 06/05/13 9:43:00, Stop date: 06/05/13 9:43:00(Same As: Dulcolax, Bisco-Lax) Klonopin 0.5 mg, 1 tab, No Longer Ajmani Route: PO, Drug Active 2013 [facility] form: TAB, Daily, Start date: 06/05/13 9:00:00, Duration: 30 day, Stop date: 07/04/13 9:00:00(Same As: Klonopin) Dulcolax 40 mg, 4 supp, Inactive Ajmani Laxative Route: SD, Drug 2013 [facility] form: SUPP, ONCE, Start date: 06/05/13 8:07:00, Stop date: 06/05/13 8:07:00(Same As: Dulcolax, Bisco-Lax) magnesium 4 gm, 100 mL, No Longer Ajmani sulfate Route: IVPB, Active 2013 [facility] Drug form: INJ, ONCALL, Start date: 06/05/13 8:00:00, Duration: 30 day, Stop date: 07/05/13 7:59:00 potassium 20 mEq, 100 mL, Inactive mani chloride Route: IVPB, 2013 [facility] Drug form: INJ, Q2H, Start date: 06/05/13 8:00:00, Duration: 2 doses or times, Stop date: 06/05/13 10:00:00(Same as: KCL) Infuse no faster than 10 mEq/hr if given peripherally. Dulcolax 10 mg, 1 supp, Inactive Ajmani Laxative Route: SD, Drug 2013 [facility] form: SUPP, ONCE, Start date: 06/05/13 7:38:00, Stop date: 06/05/13 7:38:00(Same As: Dulcolax, Bisco-Lax) morphine 4 mg, 1 mL, No Longer bAby Sulfate Route: IV, Drug Active 2013 [facility] form: INJ, Q2H, PRN Pain Score 6-10, Start date: 06/04/13 22:25:00, Stop date: 07/04/13 22:24:00(Same as:MORPhine Sulfate) Ativan 1 mg, 0.5 mL, No Longer Estephania Route: IV, Drug Active 2013 [facility] form: INJ, Q4H, PRN Agitation, Start date: 06/04/13 22:03:00, Duration: 30 day, Stop date: 07/04/13 22:02:00(Same as: Ativan) Klonopin 1 mg, 2 tab, Inactive Estephania Route: PO, Drug 2013 [facility] form: TAB, ONCE, Start date: 06/04/13 22:00:00, Stop date: 06/04/13 22:00:00(Same As: Klonopin) Ancef + Sodium 1 gm, Route: No Longer Abby Chloride 0.9% IVPB, [id number], Active 2013 [facility] IV 100 mL Dosing Weight 105.455, kg, Start date: 06/04/13 20:00:00, Duration: 30 day, Stop date: 07/04/13 12:00:00(Same As: Ancef, Kefzol) Dextrose 5% 1,000 mL, Rate: No Longer Abby with 0.45% NaCl 125 ml/hr, Active 2013 [facility] IV 1,000 mL + Infuse over: 8 potassium hr, Route: IV, chloride 10 mEq Dosing Weight 105.455 kg, Total Volume: 1,005, Start date: 06/04/13 15:57:00, Duration: 30 day, Stop date: 07/04/13 15:56:00 ondansetron 4 mg, 2 mL, Inactive Andres Route: IVP, 2013 [facility] Drug form: INJ, ONCE, Dosing Weight 105.455, kg, PRN Nausea & Vomiting, Start date: 06/04/13 15:50:00(Same as: Zofran) naloxone 0.04 mg, 0.1 Inactive Andres mL, Route: IVP2013 [facility] Drug form: INJ, Q2MIN, Dosing Weight 105.455, kg, PRN Narcotic Reversal, Start date: 06/04/13 15:50:00, Duration: 8 doses or times, Stop date: 06/04/13 23:00:00(Same as: Narcan) flumazenil 0.2 mg, 2 mL, Inactive Andres Route: IVP2013 [facility] Drug form: INJ, PRN, Dosing Weight 105.455, kg, PRN Benzodiazepine Reversal, Initial dose, Start date: 06/04/13 15:50:00, Duration: 30 day, Stop date: 07/04/13 15:49:00(Same as: Romazicon) acetaminophen 1,000 mg, 100 Inactive Andres mL, Route: 2013 [facility] IVPB, Drug form: INJ, ONCE, Dosing Weight 105.455, kg, PRN Pain Score 1-3, Start date: 06/04/13 15:50:00, Duration: 1 doses or times, Stop date: Limited # of timesInfuse over 15 minutes Do not exceed 4gm/day of acetaminophen morphine 2 mg, 1 mL, Inactive Andres Sulfate Route: IVP2013 [facility] Drug form: INJ, Q5Min, Dosing Weight 105.455, kg, PRN Pain Score 4-6, Start date: 06/04/13 15:50:00, Duration: 5 doses or times, Stop date: 06/04/13 23:00:00(Same as:MORPhine Sulfate) GoLYTELY 4,000 ml, Inactive Abby Route: NG, Drug 2013 [facility] Form: PDR/REC, Dosing Weight 105.455, kg, ONCE, Start date: 06/04/13 15:25:00, Duration: 1 doses or times, Stop date: 06/04/13 15:25:00(polyet hylene glycol electrolyte solution 4 Liter bottle) (Same as: Golytely, Colyte) D5W 1/2NS + KCL 1,000 mL, Rate: Inactive Abby 10mEq/L 1000ml 125 ml/hr, 2013 [facility] (Premix) 1000 Infuse over: 8 mL hr, Route: IV, Dosing Weight 105.455 kg, Total Volume: 1,000, Start date: 06/04/13 15:24:00, Duration: 30 day, Stop date: 07/04/13 15:23:00 morphine 2 mg, 1 mL, No Longer Abby Sulfate Route: IVP, Active 2013 [facility] Drug form: INJ, Q4H, Dosing Weight 105.455, kg, PRN Pain, Start date: 06/04/13 15:19:00, Duration: 30 day, Stop date: 07/04/13 15:18:00(Same as:MORPhine Sulfate) GoLYTELY 4,000 ml, Inactive [place] Route: PO, Drug 2013 [facility] Form: PDR/REC, Dosing Weight 105.455, kg, ONCE, Start date: 06/04/13 13:00:00, Duration: 1 doses or times, Stop date: 06/04/13 13:00:00(polyet hylene glycol electrolyte solution 4 Liter bottle) (Same as: Golytely, Colyte) magnesium 4 gm, 100 mL, Inactive Estephania sulfate Route: IVPB, 2013 [facility] Drug form: INJ, ONCALL, Start date: 06/03/13 20:00:00, Duration: 30 day, Stop date: 07/03/13 19:59:00 K-Dur 20 40 mEq, 2 tab, Inactive Estephania Route: PO, Drug 2013 [facility] form: ERTAB, ONCALL, Start date: 06/03/13 19:00:00, Duration: 1 doses or times(Same as: K-Dur 20) "Do Not Crush" With food and full glass of water Tylenol 650 mg, 2 tab, No Longer Augustus Route: PO, Drug Active 2013 [facility] form: TAB, Q6H, Dosing Weight 105.455, kg, PRN Pain, Start date: 06/01/13 10:33:00, Duration: 30 day, Stop date: 07/01/13 10:32:00Do not exceed 4 gm/day. (Same as: Tylenol) Valium 2 mg, 1 tab, No Longer Abby Route: PO, Drug Active 2013 [facility] form: TAB, BID, Dosing Weight 105.455, kg, PRN Anxiety, Start date: 05/31/13 18:33:00, Duration: 30 day, Stop date: 06/30/13 18:32:00(Same as: Valium) Protonix 40 mg, 1 tab, No Longer Shanekai Route: PO, Drug Active 2013 [facility] form: ECTAB, Before Dinner, Start date: 05/31/13 16:30:00, Duration: 30 day, Stop date: 06/29/13 16:30:00Tablet should not be chewed or crushed. (Same as: Protonix) PROzac 40 mg, 2 cap, No Longer Estephania Route: NG, Drug Active 2013 [facility] form: CAP, Daily, Start date: 05/31/13 10:30:00, Stop date: 06/30/13 9:00:00(Same as: Prozac, Sarafem) Levothroid 50 microgram, 1 No Longer cinthiai tab, Route: PO, 2013 [facility] Drug form: TAB, [id number], Start date: 05/31/13 10:30:00, Duration: 30 day, Stop date: 06/30/13 6:30:00Take 1 hour before or 2 hours after meal; Enteral feeds may interefere with the absorption of this medication.(Jhonatan e as:Levothroid, Synthroid) Detrol LA 4 mg, 1 cap, No Longer Estephania Route: PO, Drug 2013 [facility] form: CAP, Daily, Start date: 05/31/13 10:30:00, Duration: 30 day, Stop date: 06/30/13 9:00:00Do Not Crush. (Same As: Detrol LA) Sodium Chloride 250 mL, Route: No Longer Goodman 0.9% IV IVPB, Start Active 2013 [facility] date: 05/31/13 10:11:00, Duration: 30 day, Stop date: 06/30/13 10:10:00, PRN Line Flush BD Normal 10 mL, Route: No Longer Goodman Saline Flush IVP, Drug Form: 2013 [facility] INJ, PRN, PRN Line Flush, Start date: 05/31/13 10:11:00, Duration: 30 day, Stop date: 06/30/13 10:10:00(Same as: BD Posiflush) Restoril 15 mg, 1 cap, No Longer Ajmani Route: PO, Drug Active 2013 [facility] form: CAP, Bedtime, PRN Sleep, Start date: 05/31/13 10:10:00, Duration: 30 day, Stop date: 06/30/13 10:09:00(Same As: Restoril) Readi-Cat 2 450 mL, Route: No Longer Ajmani PO, Drug Form: Active 2013 [facility] SUSP, ONCALL, Start date: 05/31/13 10:00:00, Duration: 30 day, Stop date: 06/30/13 9:59:00Same as Readi-Cat 2 Zofran 4 mg, 2 mL, No Longer Goodman Route: IVP, Active 2013 [facility] Drug form: INJ, Q4H, PRN Nausea, Start date: 05/31/13 5:49:00, Duration: 30 day, Stop date: 06/30/13 5:48:00(Same as: Zofran) morphine 4 mg, 2 mL, No Longer Goodman Sulfate Route: IV, Drug Active 2013 [facility] form: INJ, Q4H, PRN Pain, Start date: 05/31/13 5:49:00, Duration: 30 day, Stop date: 06/30/13 5:48:00(Same as:MORPhine Sulfate) Sodium Chloride 1,000 mL, Rate: No Longer Goodman 0.45% IV 1,000 75 ml/hr, Active 2013 [facility] mL Infuse over: 13.3 hr, Route: IV, Dosing Weight 105.455 kg, Total Volume: 1,000, Start date: 05/31/13 5:49:00, Duration: 30 day, Stop date: 06/30/13 5:48:00 Detrol LA 4 mg 4 mg=1 cap, PO, No Longer oral capsule, Daily, at Active 2013 [facility] extended bedtime, # 30 release cap, 0 Refill(s)at bedtime fluoxetine 40 40 mg=1 cap, Active mg oral capsule PO, Daily, at 2013 AM, # 30 cap, 0 Refill(s)at 9 AM Synthroid 50 50 microgram=1 Active mcg (0.05 mg) tab, PO, Daily, 2013 [facility] oral tablet at 9 AM, # 30 tab, 0 Refill(s)at 9 AM Prevacid 30 mg 30 mg=1 cap, Active oral delayed PO, Daily, at 2013 [facility] release capsule bedtime, # 30 cap, 0 Refill(s)at bedtime pneumococcal 0.5 ml, Route: No Longer SYSTEM 23-valent IM, Drug Form: Active 2013 [facility] vaccine INJ, ONCALL, Start date: 05/31/13 3:38:03, Stop date: 06/30/13 3:33:03(Same as: Pneumovax 23) Refrigerate influenza virus 0.5 mL, Route: No Longer SYSTEM vaccine, IM, Drug Form: Active 2013 [facility] inactivated SUSP, ONCALL, Start date: 05/31/13 3:38:03, Stop date: 06/30/13 3:33:03(Same as: Fluzone) Azactam 1 gm, Route: IVPB No Longer [place] IVPB, [id number], Active 2011 [facility] Start date: 09/21/11 14:00:00, Duration: 30 day, Stop date: 10/21/11 6:00:00 nystatin-triamc 1 appl, Route: TOP No Longer [place] inolone topical TOP, BID, Drug Active 2011 [facility] cream form: CRM, Start date: 09/20/11 9:00:00, Duration: 30 day, Stop date: 10/19/11 17:00:00 Lovenox 40 mg, 0.4 mL, SUB-Q No Longer [place] Route: SUB-Q, Active 2011 [facility] Drug form: INJ, [id number], Start date: 09/20/11 4:00:00, Duration: 30 day, Stop date: 10/19/11 4:00:00 Lovenox 40 mg, 0.4 mL, SUB-Q No Longer [place] Route: SUB-Q, Active 2011 [facility] Drug form: INJ, Q12H, Start date: 09/20/11 0:00:00, Duration: 30 day, Stop date: 10/19/11 12:00:00 Lasix 20 mg, 1 tab, PO No Longer [place] Route: PO, Drug Active 2011 [facility] form: TAB, Daily, Start date: 09/19/11 17:45:00, Duration: 30 day, Stop date: 10/19/11 9:00:00 K-Dur 20 40 mEq, 2 tab, PO No Longer [place] Route: PO, Drug Active 2011 [facility] form: ERTAB, BID, Start date: 09/19/11 17:43:00, Duration: 30 day, Stop date: 10/19/11 17:00:00 vancomycin 1 gm, Route: IVPB No Longer [place]lin IVPB, [id number], Active 2011 [facility] Start date: 09/19/11 14:00:00, Duration: 30 day, Stop date: 10/18/11 14:00:00 levofloxacin 750 mg, 1 tab, PO No Longer [place] Route: PO, Drug Active 2011 [facility] form: TAB, Q24H, Start date: 09/19/11 14:00:00, Duration: 30 day, Stop date: 10/18/11 14:00:00 Benadryl 25 mg, 1 cap, PO No Longer [place] Route: PO, Drug Active 2011 [facility] form: CAP, Q6H, PRN See Nurse's Notes, Start date: 09/19/11 9:39:00, Duration: 30 day, Stop date: 10/19/11 9:38:00 acetaminophen-h 1 tab, Route: PO No Longer Estephania ydrocodone 325 PO, Drug Form: Active 2011 [facility] mg-5 mg oral TAB, Q4H, PRN tablet Pain, Start date: 09/18/11 21:34:00, Duration: 30 day, Stop date: 10/18/11 21:33:00 Xopenex 0.63 mg, 3 mL, NEB No Longer [place] Route: NEB, Active 2011 [facility] Drug form: SOLN, RTID, Start date: 09/18/11 20:00:00, Duration: 30 day, Stop date: 10/18/11 14:00:00 ipratropium 0.5 mg, 2.5 mL, NEB No Longer [place] 0.02% Route: NEB Active 2011 [facility] inhalation Drug form: solution SOLN, RTID, Start date: 09/18/11 20:00:00, Duration: 30 day, Stop date: 10/18/11 14:00:00 Xopenex 0.63 mg, 3 mL, NEB No Longer [place] Route: NEB, Active 2011 [facility] Drug form: SOLN, RTID, PRN See Respiratory Notes, Start date: 09/18/11 15:36:00, Duration: 30 day, Stop date: 10/18/11 15:35:00 ipratropium 0.5 mg, 2.5 mL, NEB No Longer [place] 0.02% Route: NEB2011 [facility] inhalation Drug form: solution SOLN, RTID, PRN See Nurse's Notes, Start date: 09/18/11 15:35:00, Duration: 30 day, Stop date: 10/18/11 15:34:00 ferrous sulfate 325 mg, 1 tab, PO No Longer [place] Route: PO, Drug Active 2011 [facility] form: TAB, BID-Meals, Start date: 09/17/11 17:00:00, Duration: 30 day, Stop date: 10/17/11 8:00:00 Lovenox 40 mg, 0.4 mL, SUB-Q No Longer [place] Route: SUB-Q, Active 2011 [facility] Drug form: INJ, [id number], Start date: 09/17/11 16:00:00, Duration: 30 day, Stop date: 10/16/11 12:00:00 Levaquin 500 mg, 1 tab, PO No Longer [place] Route: PO, Drug Active 2011 [facility] form: TAB, [id number], Start date: 09/17/11 15:00:00, Duration: 30 day, Stop date: 10/16/11 15:00:00 Xenaderm 1 appl, Route: TOP No Longer [place] TOP, Daily, Active 2011 [facility] Drug form: OINT, Start date: 09/17/11 9:00:00, Duration: 30 day, Stop date: 10/16/11 9:00:00 Ambien 5 mg, 1 tab, PO No Longer [place] Route: PO, Drug Active 2011 [facility] form: TAB, Bedtime, PRN Insomnia, Start date: 09/16/11 22:02:00, Duration: 30 day, Stop date: 10/16/11 22:01:00 Nephro-Idania Rx 1 tab, Route: PO No Longer [place] PO, Drug Form: Active 2011 [facility] TAB, BID, Start date: 09/16/11 17:00:00, Duration: 30 day, Stop date: 10/16/11 9:00:00 Protonix 40 mg, 1 tab, PO No Longer [place] Route: PO, Drug Active 2011 [facility] form: ECTAB, Before Dinner, Start date: 09/16/11 16:30:00, Duration: 30 day, Stop date: 10/15/11 16:30:00 vancomycin 1 gm, Route: IVPB No Longer [facility] IVPB, [id number], Active 2011 [facility] Start date: 09/16/11 14:00:00, Duration: 30 day, Stop date: 10/14/11 14:00:00 Diflucan 200 mg, 1 tab, PO No Longer [facility] Route: PO, Drug Active 2011 [facility] form: TAB, [id number], Start date: 09/16/11 14:00:00, Duration: 30 day, Stop date: 10/15/11 14:00:00 Dilaudid 1 mg, 0.5 mL, IV No Longer [facility] Route: IV, Drug Active 2011 [facility] form: INJ, Q4H, PRN Pain, Start date: 09/16/11 13:27:00, Duration: 30 day, Stop date: 10/16/11 13:26:00 Reglan 5 mg, 1 tab, PO No Longer [place] Route: PO, Drug Active 2011 [facility] form: TAB, TID-Before Meals, Start date: 09/16/11 13:21:00, Duration: 30 day, Stop date: 10/16/11 11:30:00 Levothroid 0.05 mg, 1 tab, PO No Longer [place] 09/15/ Route: PO, Drug Active 2011 [facility] form: TAB, [id number], Start date: 09/16/11 13:18:00, Duration: 30 day, Stop date: 10/16/11 6:30:00 Lovenox 30 mg, 0.3 mL, SUB-Q No Longer Stokes 09/15/ MH Route: SUB-Q, Active 2011 [facility] Drug form: INJ, QNoon, Start date: 09/16/11 12:00:00, Duration: 30 day, Stop date: 10/15/11 12:00:00 Lasix 40 mg, 4 mL, IV No Longer [place] Route: IV, Drug Active 2011 [facility] form: INJ, ONCE, Start date: 09/16/11 10:30:00, Stop date: 09/16/11 10:30:00 acetylcysteine 400 mg, 2 mL, NEB No Longer [place] MH Route: [facility] Drug Form: SOLN, [id number], Start date: 09/15/11 23:00:00, Duration: 30 day, Stop date: 10/15/11 15:00:00 Sublimaze 25 microgram, IV No Longer [place] 09/15/ 0.5 mL, Route: Active 2011 [facility] IV, Drug form: INJ, Q2H, PRN Pain, Start date: 09/15/11 20:40:00, Duration: 30 day, Stop date: 10/15/11 20:39:00 Lasix 40 mg, 4 mL, IV No Longer [place] 09/14/ MH Route: IV, Drug Active 2011 [facility] form: INJ, ONCE, Start date: 09/15/11 17:28:00, Stop date: 09/15/11 17:28:00 Pulmicort 1 mg, 4 mL, NEB No Longer [place] 09/14/ MH Respules Route: NEB Active 2011 [facility] Drug form: SOLN, RQ12H, Start date: 09/15/11 17:27:00, Duration: 30 day, Stop date: 10/15/11 16:00:00 MiraLax 17 gm, 1 pkt, NG No Longer [place] [facility] Route: NG, Drug Active 2011 [facility] form: PWDR, Daily, Start date: 09/14/11 18:00:00, Duration: 30 day, Stop date: 10/14/11 9:00:00 potassium 20 mmol, 6.67 IV No Longer [place] phosphate mL, Route: IV, Active 2011 [facility] ONCE, Start date: 09/14/11 18:00:00, Stop date: 09/14/11 18:00:00 Dulcolax 20 mg, 2 supp, SD No Longer [place] Laxative Route: SD, Drug Active 2011 [facility] form: SUPP, ONCE, Start date: 09/14/11 17:15:00, Stop date: 09/14/11 17:15:00 Dulcolax 20 mg, 2 supp, SD No Longer [place] Laxative Route: SD, Drug Active 2011 [facility] form: SUPP, Q48H, PRN Constipation, Start date: 09/14/11 16:56:00, Duration: 30 day, Stop date: 10/14/11 16:55:00 Trandate 5 mg, 1 mL, IV No Longer [place] Route: IV, Drug Active 2011 [facility] form: INJ, ONCE, Start date: 09/14/11 15:00:00, Stop date: 09/14/11 15:00:00 vancomycin 1 gm, Route: IVPB No Longer [place] IVPB, ONCE, Active 2011 [facility] Start date: 09/14/11 11:30:00, Stop date: 09/14/11 11:30:00 Xopenex 0.63 mg, 3 mL, NEB No Longer [place] Route: NEB Active 2011 [facility] Drug form: SOLN, RQ4H, Start date: 09/14/11 11:00:00, Duration: 30 day, Stop date: 10/14/11 7:00:00 ipratropium 0.5 mg, 2.5 mL, NEB No Longer [place] 0.02% Route: NEB Active 2011 [facility] inhalation Drug form: solution SOLN, RQ4H, Start date: 09/14/11 11:00:00, Duration: 30 day, Stop date: 10/14/11 7:00:00 Trandate 5 mg, 1 mL, IV No Longer [place] Route: IV, Drug Active 2011 [facility] form: INJ, ONCE, Start date: 09/14/11 10:00:00, Stop date: 09/14/11 10:00:00 AMIODarone 900 482 mL, Rate: IV No Longer [place] mg + Dextrose TITRATE, Route: Active 2011 [facility] 5% in Water IV IV, Dosing 482 mL Weight 117.8 kg, Total Volume: 500, Start date: 09/14/11 9:55:00, Duration: 1 doses or times, Stop date: 09/15/11 9:54:00 potassium 20 mEq, 100 mL, IVPB No Longer [place] chloride Route: IVPB, Active 2011 [facility] Drug form: INJ, ONCE, Start date: 09/14/11 9:30:00, Stop date: 09/14/11 9:30:00 Cordarone 150 mg, 3 mL, IVPB No Longer [place] Route: IVPB, Active 2011 [facility] Drug form: INJ, ONCE, Start date: 09/14/11 9:13:00, Stop date: 09/14/11 9:13:00 Cardizem 10 mg, 2 mL, IV No Longer [place] Route: IV, Drug Active 2011 [facility] form: INJ, ONCE, Start date: 09/14/11 9:12:00, Stop date: 09/14/11 9:12:00 Cardizem 10 mg, 2 mL, IV No Longer [place] Route: IV, Drug Active 2011 [facility] form: INJ, ONCE, Start date: 09/14/11 9:09:00, Stop date: 09/14/11 9:09:00 diltiazem 100 100 mL, Rate: IV No Longer [place] mg + Sodium TITRATE, Route: Active 2011 [facility] Chloride 0.9% IV, Dosing IV 100 mL Weight 117.8 kg, Total Volume: 100, Start date: 09/14/11 9:09:00, Duration: 30 day, Stop date: 10/14/11 9:08:00 Lanoxin 0.5 mg, 2 mL, IV No Longer [place] Route: IV, Drug Active 2011 [facility] form: INJ, ONCE, Start date: 09/14/11 9:08:00, Stop date: 09/14/11 9:08:00 parenteral 1,680 mL, Rate: IV No Longer [place] nutrition 70 ml/hr, Active 2011 [facility] solution Infuse over: 24 w/electrolytes hr, Route: IV, 1,680 mL Dosing Weight 117.8 kg, Total Volume: 1,680, Start date: 09/13/11 21:00:00, Duration: 30 day, Stop date: 10/13/11 20:59:00 Reglan 10 mg, 10 mL, NG No Longer [place] Route: NG, Drug Active 2011 [facility] form: SYRP, Q8H, Start date: 09/13/11 17:15:00, Duration: 30 day, Stop date: 10/13/11 16:00:00 vancomycin 1 gm, Route: IVPB No Longer [place] IVPB, ONCALL, [facility] 2011 [facility] Start date: 09/13/11 17:00:00, Stop date: 09/13/11 23:00:00 phytonadione 10 mg, 1 mL, IVPB No Longer [place] Route: IVPB, 2011 [facility] Drug form: INJ, ONCE, Start date: 09/13/11 17:00:00, Stop date: 09/13/11 17:00:00 calcium 1,000 mg, 10 IV No Longer [place] chloride mL, Route: IV, 2011 [facility] Drug form: INJ, ONCE, Start date: 09/12/11 22:00:00, Stop date: 09/12/11 22:00:00 albumin human 25 gm, 100 mL, IV No Longer [place] Route: IV, Drug 2011 [facility] form: INJ, Q12H, Start date: 09/12/11 20:00:00, Stop date: 09/15/11 0:00:00 Sodium Chloride 250 mL, Route: IVPB No Longer [place] 0.9% IV IVPB, Start 2011 [facility] date: 09/12/11 18:05:00, Duration: 30 day, Stop date: 10/12/11 18:04:00, PRN Line Flush BD Normal 10 mL, Route: IVP No Longer [place] Saline Flush IVP, Drug Form: 2011 [facility] INJ, PRN, PRN Line Flush, Start date: 09/12/11 18:05:00, Duration: 30 day, Stop date: 10/12/11 18:04:00 calcium 1,000 mg, 10 IV No Longer [place] gluconate mL, Route: IV, Active 2011 [facility] Drug form: INJ, ONCE, Start date: 09/12/11 11:00:00, Stop date: 09/12/11 11:00:00 DuoNeb 3 mL, Route: NEB No Longer [place] inhalation NEB, Drug Form: Active 2011 [facility] solution SOLN, RQ4H, Start date: 09/12/11 11:00:00, Duration: 30 day, Stop date: 10/12/11 7:00:00 Diflucan 200 mg, 100 mL, IVPB No Longer [place] Route: IVPB, Active 2011 [facility] Drug form: INJ, [id number], Start date: 09/12/11 11:00:00, Duration: 3 day, Stop date: 09/14/11 11:00:00 magnesium 50 mL, Rate: 25 IVPB No Longer [place] sulfate ml/hr, Infuse Active 2011 [facility] over: 2 hr, Route: IVPB, Total Volume: 50, Start date: 09/12/11 11:00:00, Stop date: 09/12/11 11:00:00 calcium 1,000 mg, 10 IVPB No Longer [facility] gluconate mL, Route: Active 2011 [facility] IVPB, ONCE, Start date: 09/12/11 7:00:00, Stop date: 09/12/11 7:00:00 chlorhexidine 15 mL, Route: S&SPIT No Longer [facility] topical 0.12% S&SPIT, Q6H, Active 2011 [facility] liquid Drug form: LIQ, Start date: 09/12/11 6:00:00, Duration: 30 day, Stop date: 10/12/11 0:00:00 fentanyl 0.6 mg IV, Start date: IV No Longer [place] 09/11/ 09/12/11 Active 2011 [facility] 0:54:00, Duration: 30, 30 ml glucagon 1 mg, Route: IV No Longer [facility] IV, Drug form: Active 2011 [facility] PDR/INJ, PRN, PRN Blood Glucose Results, Start date: 09/12/11 0:19:00, Duration: 30 day, Stop date: 10/12/11 0:18:00 Dextrose 50% in 50 mL, Route: IVP No Longer [place] IV IVP, Start Active 2011 [facility] date: 09/12/11 0:19:00, Duration: 30 day, Stop date: 10/12/11 0:18:00, PRN Blood Glucose Results NovoLog FlexPen 6 unit, 0.06 SUB-Q No Longer [facility] mL, Route: Active 2011 [facility] SUB-Q, Drug form: SOLN, Sliding Scale, PRN Blood Glucose Results, Start date: 09/12/11 0:19:00, Stop date: 10/12/11 0:18:00 Sodium Chloride 1,000 mL, Rate: IV No Longer [place] 0.9% IV 1,000 100 ml/hr, Active 2011 [facility] mL Infuse over: 10 hr, Route: IV, Dosing Weight 117.8 kg, Total Volume: 1,000, Start date: 09/11/11 23:33:00, Stop date: 09/13/11 20:59:00 Sodium Chloride 1,000 mL, Rate: IV No Longer [place] 09/11/ 0.9% IV 1,000 100 ml/hr, Active 2011 [facility] mL Infuse over: 10 hr, Route: IV, Dosing Weight 117.8 kg, Total Volume: 1,000, Start date: 09/11/11 20:19:00, Duration: 30 day, Stop date: 10/11/11 20:18:00 Sublimaze 50 microgram, 1 IV No Longer [place] mL, Route: IV, Active 2011 [facility] Drug form: INJ, ONCE, Start date: 09/11/11 17:41:00, Stop date: 09/11/11 17:41:00 Lasix 80 mg, 8 mL, IV No Longer [place] Route: IV, Drug Active 2011 [facility] form: INJ, ONCE, Start date: 09/11/11 17:14:00, Stop date: 09/11/11 17:14:00 albumin human 25 gm, 100 mL, IV No Longer [place] Route: IV, Drug Active 2011 [facility] form: INJ, ONCE, Start date: 09/11/11 16:46:00, Stop date: 09/11/11 16:46:00 Lasix 20 mg, 2 mL, IV No Longer [place] Route: IV, Drug Active 2011 [facility] form: INJ, ONCE, Start date: 09/11/11 16:38:00, Stop date: 09/11/11 16:38:00 Sublimaze 50 microgram, 1 IV No Longer [place] mL, Route: IV, Active 2011 [facility] Drug form: INJ, ONCE, Start date: 09/11/11 15:04:00, Stop date: 09/11/11 15:04:00 sodium 100 mEq, 100 IV No Longer [place] bicarbonate mL, Route: IV, Active 2011 [facility] 8.4% Drug Form: INJ, ONCE, Start date: 09/11/11 14:00:00, Stop date: 09/11/11 14:00:00 cefazolin 1 gm, Route: IVPB No Longer [place] IVPB, ABXQ8H, Active 2011 [facility] Start date: 09/11/11 10:00:00, Duration: 30 day, Stop date: 10/11/11 2:00:00 calcium 2,000 mg, 20 IV No Longer [place] gluconate mL, Route: IV, Active 2011 [facility] ONCE, Start date: 09/11/11 10:00:00, Stop date: 09/11/11 10:00:00 albumin human 25 gm, 500 mL, IV No Longer [place] Route: IV, Drug Active 2011 [facility] form: INJ, ONCE, Start date: 09/11/11 9:40:00, Stop date: 09/11/11 9:40:00 Haldol 5 mg, 1 mL, IV No Longer [place] Route: IV, Drug Active 2011 [facility] form: INJ, Q4H, PRN Agitation, Start date: 09/11/11 9:39:00, Duration: 30 day, Stop date: 10/11/11 9:38:00 Sodium Chloride 1,000 mL, Rate: IV No Longer [place] 0.9% IV 1,000 100 ml/hr, Active 2011 [facility] mL Infuse over: 10 hr, Route: IV, Dosing Weight 117.8 kg, Total Volume: 1,000, Start date: 09/11/11 9:38:00, Stop date: 10/11/11 9:37:00 Pepcid 20 mg, 2 mL, IVP No Longer [place] Route: IVP, 2011 [facility] Drug form: INJ, Daily, Start date: 09/11/11 9:00:00, Duration: 30 day, Stop date: 10/10/11 9:00:00 Merrem 500 mg, Route: IVPB No Longer [place] IVPB, ABXQ8H, Active 2011 [facility] Start date: 09/11/11 6:00:00, Duration: 1 day, Stop date: 09/17/11 6:00:00 albumin human 12.5 gm, 250 IV No Longer [place] mL, Route: IV, 2011 [facility] Drug form: INJ, ONCE, Start date: 09/11/11 5:32:00, Stop date: 09/11/11 5:32:00 vancomycin 1 gm, Route: IVPB No Longer [place] IVPB, ONCE, [facility] 2011 [facility] Start date: 09/11/11 5:30:00, Stop date: 09/11/11 5:30:00 hetastarch 6% IV, Start date: IV No Longer [place] in NS 500 mL 09/11/11 [facility] 2011 [facility] 5:30:00, Duration: 1, 500 ml Lasix 20 mg, 2 mL, IV No Longer [place] Route: IV, Drug 2011 [facility] form: INJ, ONCE, Start date: 09/10/11 21:09:00, Stop date: 09/10/11 21:09:00 hydromorphone 6 30 mL, Rate: IV No Longer Abby mg asdir, Route: Active 2011 [facility] IV, Dosing Weight 117.8 kg, Total Volume: 30, Start date: 09/10/11 20:50:00, Duration: 30 day, Stop date: 10/10/11 20:49:00 Dextrose 5% 1,000 mL, Rate: IV No Longer [place] with 0.45% NaCl 250 ml/hr, Active 2011 [facility] IV 1,000 mL Infuse over: 4 hr, Route: IV, Dosing Weight 117.8 kg, Total Volume: 1,000, Start date: 09/10/11 18:00:00, Stop date: 10/10/11 17:59:00 Protonix 40 mg, Route: IVP No Longer [place] IVP, Drug form: Active 2011 [facility] INJ, Before Dinner, Start date: 09/10/11 16:30:00, Duration: 30 day, Stop date: 10/09/11 16:30:00 Sodium Chloride IV, 500 ml/hr, IV No Longer [place] 0.9% IV ONCALL, Start Active 2011 [facility] date: 09/10/11 15:00:00, Duration: 30, 500 ml hetastarch 6% 500 mL, 500 IV No Longer [place] in NS ml/hr, Route: Active 2011 [facility] IV, Drug Form: INJ, ONCE, Start date: 09/10/11 14:00:00, Stop date: 09/10/11 14:00:00 Ativan 1 mg, 0.5 mL, IV No Longer [place] Route: IV, Drug Active 2011 [facility] form: INJ, Q6H, PRN Anxiety, Start date: 09/10/11 11:49:00, Duration: 30 day, Stop date: 10/10/11 11:48:00 Lopressor 25 mg, 1 tab, PO No Longer [place] Route: PO, Drug Active 2011 [facility] form: TAB, Daily, Start date: 09/10/11 9:00:00, Duration: 30 day, Stop date: 10/09/11 9:00:00 Lovenox 40 mg, 0.4 mL, SUB-Q No Longer [place] Route: SUB-Q, Active 2011 [facility] Drug form: INJ, Daily, Start date: 09/10/11 9:00:00, Duration: 30 day, Stop date: 10/09/11 9:00:00 Zofran 4 mg, 2 mL, IVP No Longer [place] Route: IVP, Active 2011 [facility] Drug form: INJ, Q4H, PRN Nausea, Start date: 09/10/11 1:40:00, Duration: 30 day, Stop date: 10/10/11 1:39:00 influenza virus 0.5 mL, Route: No Longer SYSTEM vaccine, IM, Drug Form: [facility] 2011 [facility] inactivated INJ, ONCALL, Start date: 09/09/11 20:52:24, Stop date: 10/09/11 20:47:24Same as: Fluarix Contains 15 mcg of influenza virus antigen from each of 3 viruses H1N1, H3N2, and 3,11 cefazolin 2 gm, 100 mL, IVPB No Longer [place] Route: IVPB, 2011 [facility] Drug form: INJ, [id number], Start date: 09/09/11 20:00:00, Stop date: 09/10/11 16:10:00 morphine IV, Start date: IV No Longer [place] Sulfate 30 mg 09/09/112011 [facility] 19:06:00, 30 ml Dextrose 5% 1,000 mL, Rate: IV No Longer [place] with 0.45% NaCl 250 ml/hr, 2011 [facility] IV 1,000 mL Infuse over: 4 hr, Route: IV, Dosing Weight 117.8 kg, Total Volume: 1,000, Start date: 09/09/11 19:03:00, Duration: 4 hr, Stop date: 09/10/11 17:58:00 Phenergan 12.5 mg, Route: IM No Longer Iggy IM, ONCE, Start 2011 [facility] date: 09/09/11 17:07:00, Stop date: 09/09/11 17:07:00 hydromorphone 0.1 mg, Route: IV No Longer [place] IV, ONCE, Start 2011 [facility] date: 09/09/11 16:58:00, Stop date: 09/09/11 16:58:00 Zofran 4 mg, Route: IV No Longer [place] IV, ONCE, Start 2011 [facility] date: 09/09/11 16:56:00, Stop date: 09/09/11 16:56:00 hydromorphone 0.2 mg, Route: IV No Longer [place] IV, ONCE, Start Active 2011 [facility] date: 09/09/11 16:55:00, Stop date: 09/09/11 16:55:00 Allergies, Adverse Reactions, Alerts Substance Category Reaction Severity Reaction Status Date Comments Source type Reported Adhesive propensity Adverse Tape to adverse Reaction [facility] reactions to substance Demerol HCl drug allergy Allergy Active [facility] NKFA drug allergy Allergy Active [facility] Immunizations Immunization Date Site Status Last Updated Comments Source [facility] influenza virus [facility], [facility] inactivated pneumococcal Right completed [facility] Left completed [facility] vaccine, 4 [facility] inactivated influenza virus Not Given [facility] vaccine, 2 inactivated Results Order Name Results Value Reference Date Interpretation Comments Source Range ELECTROLYT AGAP 11.0 meq/L 10.0 - 01/03 ES 20.0 [facility] ELECTROLYT eGFR 57 01/03 Result Comment: The eGFR is calculated using the CKD-EPI formula. In most young, healthy individuals the eGFR will be >90 mL/ min/1.73m2. The eGFR declines with age. An eGFR of 60-89 may be normal in [facility] mL/min/1.7 some populations, particularly the elderly, for whom the CKD-EPI formula has not been extensively validated. Use of the eGFR is not recommended in the following populations: [address] Individuals with unstable creatinine concentrations, including patients and those with serious co-morbid conditions. Patients with extremes in muscle mass or diet. The data above are obtained from the National Kidney Disease Education Program (NKDEP) which additionally recommends that when the eGFR is used in patients with extremes of body mass index for purposes of drug dosing, the eGFR should be multiplied by the estimated BMI. ELECTROLYT Creatinine 1.05 mg/dL 0.50 - 01/03 ES Lvl 1.40 [facility] ELECTROLYT Glucose Lvl 115 mg/dL 70 - 99 01/03 ES [facility] ELECTROLYT Chloride Lvl 108 meq/L 95 - 109 01/03 ES [facility] ELECTROLYT Potassium 4.0 meq/L 3.5 - 5.1 01/03 ES Lvl /2016 [facility] ELECTROLYT Calcium Lvl 7.4 mg/dL 8.5 - 10.5 01/03 ES /2015 [facility] ELECTROLYT CO2 30 meq/L 24 - 32 01/03 ES [facility] ELECTROLYT Sodium Lvl 145 meq/L 135 - 145 01/03 ES [facility] ELECTROLYT BUN 18 mg/dL 7 - 22 01/03 ES /2015 [facility] HEMATOLOGY Eosinophils 0.4 K/CMM 0.0 - 0.5 / MH # /2016 [facility] HEMATOLOGY Basophils # 0.0 K/CMM 0.0 - 0.2 01/03 [facility] HEMATOLOGY Basophils 0.4 % 0.0 - 1.0 01/03 [facility] HEMATOLOGY Eosinophils 5.6 % 0.0 - 4.0 01/03 [facility] HEMATOLOGY Monocytes # 0.7 K/CMM 0.0 - 0.8 01/03 [facility] HEMATOLOGY Lymphocytes 2.4 K/CMM 1.0 - 5.5 01/03 # /2015 [facility] HEMATOLOGY Segs 45.0 % 45.0 - 01/03 75.0 [facility] HEMATOLOGY Segs-Bands # 2.9 K/CMM 1.5 - 8.1 01/03 [facility] HEMATOLOGY Lymphocytes 38.3 % 20.0 - 01/03 40.0 [facility] HEMATOLOGY Monocytes 10.7 % 2.0 - 12.0 01/03 [facility] HEMATOLOGY RBC Morph Normal 01/03 [facility] (01/04/16 3:05 AM) [facility] HEMATOLOGY Plt Morph Normal 01/03 [facility] (01/04/16 3:05 AM) [facility] HEMATOLOGY RDW 14.9 % 11.5 - 01/03 14.5 [facility] HEMATOLOGY Platelet 124 K/CMM 133 - 450 01/03 [facility] HEMATOLOGY MCH 30.4 pg 27.0 - 01/03 31.0 [facility] HEMATOLOGY MCHC 33.4 g/dL 32.0 - 01/03 36.0 [facility] HEMATOLOGY MPV 9.5 fL 7.4 - 10.4 01/03 [facility] HEMATOLOGY WBC 6.3 K/CMM 3.7 - 10.4 01/03 [facility] HEMATOLOGY Hgb 12.3 g/dL 12.0 - 01/03 16.0 /2015 [facility] HEMATOLOGY Hct 36.7 % 36.0 - 01/03 48.0 /2016 [facility] HEMATOLOGY RBC 4.03 M/CMM 4.20 - 01/03 5.40 /2015 [facility] HEMATOLOGY MCV 91.0 fL 80.0 - 01/03 98.0 /2015 [facility] Abdomen 2 Abdomen 2 EXAM: Abdomen 2 views DX 01/03 - views DX views [facility] HISTORY: Abdominal distension [facility] COMPARISON: 01/03/2016 Read by: Tuan Roberts MD Dictated Date/time: 01/04/16 08:03 Electronically Signed by: Tuan Roberts MD 01/04/16 08:05 FINAL REPORT The lung bases are clear. There is postoperative change of the stomach. The enteric tube terminates over the gastric body. Oral contrast has transited into the colon. No definitively dilated loops of small bowel are seen on today's exam. No free air is identified. IMPRESSION: Oral contrast has transited into the colon. No dilated small bowel is evident today. Small Small bowel Clinical history: Constipation. 01/02 [facility] bowel series DX - [facility] series DX Sex: Female. [facility] : 1950. Read by: Lex Gallo MD Dictated Date/time: 01/03/16 14:29 Electronically Signed by: Lex Gallo MD 01/03/16 14:31 FINAL REPORT Technique: Small bowel series was performed. Findings: There is a nasogastric tube. There is moderate dilatation of the small bowel loops. The jejunum measures up to 4.5 cm. Ileal loops measure up to 3.9 cm. There is delayed transit. The contrast column reaches the cecum at 2 hours and 15 minutes. No focal narrowing or defect. Impression: Findings consistent with small bowel obstruction. Chest Chest 1view Clinical history: PICC Line Placement. 01/02 - 1view DX [facility] : 1950. Read by: Lex Gallo MD Dictated Date/time: 01/03/16 14:29 Electronically Signed by: Lex Gallo MD 01/03/16 14:29 FINAL REPORT Technique: Portable AP chest x-ray. Comparison: 05/31/2013. Heart size: Enlarged. Tortuous aorta. No pulmonary edema. Lungs: No acute consolidation. Pleura: No pleural effusion. Mediastinum and molly: Unremarkable. Skeletal: Thoracic spondylosis. Support tubings: Right PICC line in the upper SVC. Impression: 1. Cardiomegaly. CHEM PANEL BUN 22 mg/dL 7 - 22 01/02 [facility] CHEM PANEL Calcium Lvl 8.3 mg/dL 8.5 - 10.5 01/02 [facility] CHEM PANEL Chloride Lvl 102 meq/L 95 - 109 01/02 [facility] CHEM PANEL Potassium 4.3 meq/L 3.5 - 5.1 01/02 Lvl [facility] CHEM PANEL Sodium Lvl 142 meq/L 135 - 145 01/02 [facility] CHEM PANEL Total 6.3 g/dL 6.4 - 8.4 01/02 [facility] CHEM PANEL Alk Phos 56 unit/L 39 - 136 01/02 [facility] CHEM PANEL Bili Total 1.0 mg/dL 0.2 - 1.3 01/02 [facility] CHEM PANEL eGFR 44 01/02 Result Comment: The eGFR is calculated using the CKD-EPI formula. In most young, healthy individuals the eGFR will be >90 mL/ min/1.73m2. The eGFR declines with age. An eGFR of 60-89 may be normal in mL/min/1. some populations, particularly the elderly, for whom the CKD-EPI formula has not been extensively validated. Use of the eGFR is not recommended in the following populations: [address] Individuals with unstable creatinine concentrations, including patients and those with serious co-morbid conditions. Patients with extremes in muscle mass or diet. The data above are obtained from the National Kidney Disease Education Program (NKDEP) which additionally recommends that when the eGFR is used in patients with extremes of body mass index for purposes of drug dosing, the eGFR should be multiplied by the estimated BMI. CHEM PANEL Glucose Lvl 124 mg/dL 70 - 99 01/02 [facility] CHEM PANEL Creatinine 1.29 mg/dL 0.50 - 01/02 Lvl 1.40 [facility] CHEM PANEL Albumin Lvl 3.5 g/dL 3.5 - 5.0 01/02 [facility] CHEM PANEL CO2 30 meq/L 24 - 32 08 [facility] CHEM PANEL ALT 124 unit/L 0 - 65 01/02 [facility] CHEM PANEL AST 148 unit/L 0 - 37 01/02 [facility] CHEM PANEL Globulin 2.8 g/dL 2.7 - 4.2 08 [facility] CHEM PANEL A/G Ratio 1.2 0.7 - 1.6 01/02 [facility] CHEM PANEL B/C Ratio 17 6 - 25 01/02 [facility] CHEM PANEL AGAP 14.3 meq/L 10.0 - 08 MH 20.0 [facility] HEMATOLOGY Basophils # 0.0 K/CMM 0.0 - 0.2 01/02 [facility] HEMATOLOGY Segs 76.1 % 45.0 - 01/02 MH 75.0 [facility] HEMATOLOGY Lymphocytes 1.4 K/CMM 1.0 - 5.5 01/02 [facility] HEMATOLOGY Segs-Bands # 8.3 K/CMM 1.5 - 8.1 01/02 [facility] HEMATOLOGY Basophils 0.2 % 0.0 - 1.0 01/02 [facility] HEMATOLOGY Eosinophils 0.3 K/CMM 0.0 - 0.5 01/02 [facility] HEMATOLOGY Monocytes # 0.9 K/CMM 0.0 - 0.8 01/02 [facility] HEMATOLOGY Eosinophils 2.4 % 0.0 - 4.0 01/02 [facility] HEMATOLOGY Monocytes 8.3 % 2.0 - 12.0 01/02 [facility] HEMATOLOGY Lymphocytes 13.0 % 20.0 - 01/02 MH 40.0 /2015 [facility] HEMATOLOGY INR 1.03 0.85 - 01/02 MH 1.17 [facility] HEMATOLOGY PTT 30.7 s 22.9 - 01/02 MH 35.8 [facility] HEMATOLOGY PT 13.8 s 12.0 - 01/02 MH 14.7 [facility] HEMATOLOGY MPV 9.0 fL 7.4 - 10.4 08 [facility] HEMATOLOGY Platelet 148 K/CMM 133 - 450 08 [facility] HEMATOLOGY WBC 10.9 K/CMM 3.7 - 10.4 08 /2015 [facility] HEMATOLOGY Hgb 13.6 g/dL 12.0 - 01/02 16.0 /2015 [facility] HEMATOLOGY RBC 4.44 M/CMM 4.20 - 01/02 5.40 /2015 [facility] HEMATOLOGY RDW 14.3 % 11.5 - 01/02 14.5 /2015 [facility] HEMATOLOGY MCHC 33.8 g/dL 32.0 - 01/02 36.0 /2015 [facility] HEMATOLOGY MCH 30.6 pg 27.0 - 01/02 MH 31.0 /2015 [facility] HEMATOLOGY Hct 40.2 % 36.0 - 01/02 MH 48.0 /2015 [facility] HEMATOLOGY MCV 90.6 fL 80.0 - 01/02 98.0 [facility] URINE AND UA Mucus Few /LPF None Seen 01/02 MH STOOL /LPF /2015 [facility] URINE AND UA Hyal Cast 15 /LPF 0 - 2 01/02 [facility] URINE AND UA Color Nimco 01/02 STOOL [facility] URINE AND UA RBC 2 /HPF 0 - 2 01/02 STOOL [facility] URINE AND UA WBC 2 /HPF 0 - 5 01/02 [facility] URINE AND UA Sq Epi Many /LPF Few /LPF 01/02 STOOL [facility] URINE AND UA Bacteria Occasional None Seen 01/02 STOOL /HPF /HPF /2015 [facility] URINE AND UA Leuk Est Negative Negative 01/02 [facility] (01/03/16 3:42 AM) [facility] URINE AND UA <=1.0 0.1 - 1.0 01/02 STOOL Urobilinogen mg/dL [facility] URINE AND UA Ketones Negative 01/02 [facility] URINE AND UA Bili Negative Negative 01/02 STOOL [facility] *NA* [facility] (01/03/16 3:42 AM) URINE AND UA Glucose Negative Negative 01/02 STOOL mg/dL mg/dL [facility] URINE AND UA Blood Negative Negative 01/02 STOOL [facility] (01/03/16 3:42 AM) [facility] URINE AND UA Nitrite Negative Negative 01/02 STOOL [facility] (01/03/16 3:42 AM) [facility] URINE AND UA pH 5.0 5.0 - 8.0 01/02 [facility] URINE AND UA Protein Negative Negative 01/02 STOOL mg/dL mg/dL /2015 [facility] URINE AND UA Turbidity Marked Clear 01/02 STOOL [facility] *ABN* [facility] (01/03/16 3:42 AM) URINE AND UA Spec Grav 1.026 <=1.030 01/02 STOOL [facility] Abdomen 2 Abdomen 2 CLINICAL HISTORY:Vomiting. 01/02 - views DX views DX - [facility] :1950. [facility] Sex:Female. Read by: Lex Gallo MD Dictated Date/time: 01/03/16 08:03 Electronically Signed by: Lex Gallo MD 01/03/16 08:03 FINAL REPORT TECHNIQUE: Supine and upright views of the abdomen. There is no intestinal dilatation. Scattered air-fluid levels noted. Pelvic surgical clips. Left upper quadrant surgical clips. Nasogastric tube tip is 11 cm below the diaphragm. There is no mass. There is no free air. There is no opaque calculus. Skeletal structures are unremarkable. The visible lung bases are clear IMPRESSION: 1. No acute radiographic findings.. CHEMISTRY A/G Ratio 0.9 0.7 - 1.6 06/18 Normal [facility] CHEMISTRY Globulin 3.2 g/dL 2.0 - 4.0 06/18 Normal [facility] CHEMISTRY B/C Ratio 13 6 - 25 06/18 Normal [facility] CHEMISTRY AGAP 12.6 meq/L 10.0 - 06/18 Normal 20.0 [facility] CHEMISTRY eGFR 69 06/18 1Result Comment: The eGFR is calculated using the CKD-EPI formula. In most young, healthy individuals the eGFR will be >90 mL/ min/1.73m2. The eGFR declines with age. An eGFR of 60-89 may be normal in mL/min/1.7 /2013 some populations, particularly the elderly, for whom the CKD-EPI formula has not been extensively validated. Use of the eGFR is not recommended in the following populations: [facility] 3m2 Individuals with unstable creatinine concentrations, including patients and those with serious co-morbid conditions. Patients with extremes in muscle mass or diet. The data above are obtained from the National Kidney Disease Education Program (NKDEP) which additionally recommends that when the eGFR is used in patients with extremes of body mass index for purposes of drug dosing, the eGFR should be multiplied by the estimated BMI. CHEMISTRY Glucose Lvl 90 mg/dL 70 - 99 06/18 Normal 3Interpretive Data: Adult reference range values reflect the clinical guidelines of the [place] [employer]. [facility] CHEMISTRY Alk Phos 73 unit/L 39 - 136 06/18 Normal [facility] CHEMISTRY Albumin Lvl 2.9 g/dL 3.5 - 5.0 06/18 LOW [facility] CHEMISTRY Bili Total 0.3 mg/dL 0.2 - 1.3 06/18 Normal [facility] CHEMISTRY Calcium Lvl 8.2 mg/dL 8.5 - 10.5 06/18 LOW [facility] CHEMISTRY Chloride Lvl 110 meq/L 95 - 109 06/18 HI [facility] CHEMISTRY Potassium 3.6 meq/L 3.5 - 5.1 06/18 Normal Lv [facility] CHEMISTRY CO2 25 meq/L 24 - 32 06/18 Normal [facility] CHEMISTRY Sodium Lvl 144 meq/L 135 - 145 06/18 Normal [facility] CHEMISTRY ALANINE 21 unit/L 0 - 65 06/18 Normal AMINOTRANS [facility] RAS CHEMISTRY Creatinine 0.9 mg/dL 0.5 - 1.4 06/18 Normal l [facility] CHEMISTRY BUN 12 mg/dL 7 - 22 06/18 Normal [facility] CHEMISTRY ASPARTATE 12 unit/L 0 - 37 06/18 Normal TRANSAMINASE [facility] CHEMISTRY Total 6.1 g/dL 6.4 - 8.4 06/18 LOW Protein [facility] HEMATOLOGY Monocytes 7.7 % 2.0 - 12.0 06/18 Normal [facility] HEMATOLOGY Lymphocytes 33.5 % 20.0 - 06/18 Normal MH 40.0 [facility] HEMATOLOGY Basophils 1.3 % 0.0 - 1.0 06/18 HI [facility] HEMATOLOGY Segs-Bands # 2.9 K/CMM 1.5 - 8.1 06/18 Normal [facility] HEMATOLOGY Eosinophils 10.4 % 0.0 - 4.0 06/18 HI [facility] HEMATOLOGY Monocytes # 0.5 K/CMM 0.0 - 0.8 06/18 Normal [facility] HEMATOLOGY Lymphocytes 2.0 K/CMM 1.0 - 5.5 06/18 Normal MH # [facility] HEMATOLOGY Eosinophils 0.6 K/CMM 0.0 - 0.5 06/18 HI MH # /2014 [facility] HEMATOLOGY Basophils # 0.1 K/CMM 0.0 - 0.2 06/18 Normal /2013 [facility] HEMATOLOGY Segs 47.1 % 45.0 - 06/18 Normal 75.0 /2013 [facility] HEMATOLOGY MCV 86.0 fL 81.0 - 06/18 Normal 99.0 /2013 [facility] HEMATOLOGY Hgb 9.6 g/dL 12.0 - 06/18 LOW 16.0 /2013 [facility] HEMATOLOGY Hct 28.9 % 36.0 - 06/18 LOW 48.0 /2013 [facility] HEMATOLOGY MCH 28.8 pg 27.0 - 06/18 Normal 31.0 /2013 [facility] HEMATOLOGY MCHC 33.5 g/dL 32.0 - 06/18 Normal 36.0 /2013 [facility] HEMATOLOGY WBC X 10x3 6.1 K/CMM 3.7 - 10.4 06/18 Normal [facility] HEMATOLOGY RBC X 10x6 3.36 M/CMM 4.20 - 06/18 LOW 5.40 /2013 [facility] HEMATOLOGY MPV 9.6 fL 7.4 - 10.4 06/18 Normal [facility] HEMATOLOGY RDW 16.4 % 11.5 - 06/18 HI 14.5 /2013 [facility] HEMATOLOGY Platelet 221 K/CMM 133 - 450 06/18 Normal [facility] HEMATOLOGY Sed Rate 70 mm/h 0 - 20 06/18 HI [facility] CHEMISTRY Vanco Tr 11.2 ug/ml 06/15 5Interpretive Data: Therapeutic Range: Trough: 10 - 20 ug/mL [facility] Peak: 20 - 40 ug/mL Potential Toxicity: >80 ug/mL CHEMISTRY Vanco Tr TND 0130 06/15 [facility] URINALYSIS UA null 0.1 - 1.0 06/14 Urobilinogen /2013 [facility] URINALYSIS UA Hyal Cast 2 /LPF 0 - 2 06/14 Normal [facility] URINALYSIS UA Bacteria Occasional None Seen 06/14 /HPF [facility] URINALYSIS UA RBC 7 /HPF 0 - 2 06/14 HI [facility] URINALYSIS UA Mucus Few /LPF None Seen 06/14 [facility] URINALYSIS UA Leuk Est Negative Negative 06/14 Normal [facility] (06/14/2013 09:45:34) URINALYSIS UA Sq Epi Few /LPF Few 06/14 [facility] URINALYSIS UA WBC 4 /HPF 0 - 5 06/14 Normal [facility] URINALYSIS UA Bili Negative Negative 06/14 [facility] *NA* (06/14/2013 09:45:34) URINALYSIS UA Blood Negative Negative 06/14 Normal [facility] (06/14/2013 09:45:34) URINALYSIS UA Nitrite Negative Negative 06/14 Normal [facility] (06/14/2013 09:45:34) URINALYSIS UA Protein 20 mg/dL Negative 06/14 ABN [facility] URINALYSIS UA Glucose Negative Negative 06/14 mg/dL [facility] URINALYSIS UA Ketones Negative Negative 06/14 mg/dL [facility] URINALYSIS UA pH 5.5 5.0 - 8.0 06/14 Normal [facility] URINALYSIS UA Spec Grav 1.009 <=1.030 06/14 Normal [facility] URINALYSIS UA Turbidity Clear Clear 06/14 Normal [facility] (06/14/2013 09:45:34) URINALYSIS UA Color Light Yellow Yellow 06/14 [facility] *NA* (06/14/2013 09:45:34) CHEMISTRY AGAP 15.0 meq/L 10.0 - 06/14 Normal 20.0 [facility] CHEMISTRY Globulin 3.4 g/dL 2.0 - 4.0 06/14 Normal [facility] CHEMISTRY B/C Ratio 13 6 - 25 06/14 Normal [facility] CHEMISTRY A/G Ratio 0.8 0.7 - 1.6 06/14 Normal [facility] CHEMISTRY eGFR 69 06/14 2Result Comment: The eGFR is calculated using the CKD-EPI formula. In most young, healthy individuals the eGFR will be >90 mL/ min/1.73m2. The eGFR declines with age. An eGFR of 60-89 may be normal in mL/min/1.7 /2013 some populations, particularly the elderly, for whom the CKD-EPI formula has not been extensively validated. Use of the eGFR is not recommended in the following populations: [facility] 3m2 Individuals with unstable creatinine concentrations, including patients and those with serious co-morbid conditions. Patients with extremes in muscle mass or diet. The data above are obtained from the National Kidney Disease Education Program (NKDEP) which additionally recommends that when the eGFR is used in patients with extremes of body mass index for purposes of drug dosing, the eGFR should be multiplied by the estimated BMI. CHEMISTRY Albumin Lvl 2.7 g/dL 3.5 - 5.0 06/14 LOW MH [facility] CHEMISTRY Glucose Lvl 97 mg/dL 70 - 99 06/14 Normal 4Interpretive Data: Adult reference range values reflect the clinical guidelines of the [place] [employer]. [facility] CHEMISTRY Creatinine 0.9 mg/dL 0.5 - 1.4 06/14 Normal Lvl [facility] CHEMISTRY Alk Phos 78 unit/L 39 - 136 06/14 Normal [facility] CHEMISTRY BUN 12 mg/dL 7 - 22 06/14 Normal [facility] CHEMISTRY Potassium 4.0 meq/L 3.5 - 5.1 06/14 Normal Lvl [facility] CHEMISTRY Chloride Lvl 107 meq/L 95 - 109 06/14 Normal [facility] CHEMISTRY CO2 24 meq/L 24 - 32 06/14 Normal [facility] CHEMISTRY Calcium Lvl 8.2 mg/dL 8.5 - 10.5 06/14 LOW MH [facility] CHEMISTRY Sodium Lvl 142 meq/L 135 - 145 06/14 Normal [facility] CHEMISTRY Bili Total 0.3 mg/dL 0.2 - 1.3 06/14 Normal [facility] CHEMISTRY Total 6.1 g/dL 6.4 - 8.4 06/14 LOW Protein [facility] CHEMISTRY ASPARTATE 17 unit/L 0 - 37 06/14 Normal TRANSAMINASE [facility] CHEMISTRY ALANINE 17 unit/L 0 - 65 06/14 Normal AMINOTRANSFE [facility] RAS HEMATOLOGY Lymphocytes 1.6 K/CMM 1.0 - 5.5 06/14 Normal # [facility] HEMATOLOGY Monocytes # 0.6 K/CMM 0.0 - 0.8 06/14 Normal [facility] HEMATOLOGY Basophils 0.7 % 0.0 - 1.0 06/14 Normal [facility] HEMATOLOGY Eosinophils 0.6 K/CMM 0.0 - 0.5 06/14 HI MH # [facility] HEMATOLOGY Segs-Bands # 3.8 K/CMM 1.5 - 8.1 06/14 Normal [facility] HEMATOLOGY Basophils # 0.0 K/CMM 0.0 - 0.2 06/14 Normal MH /2013 [facility] HEMATOLOGY Eosinophils 9.1 % 0.0 - 4.0 06/14 HI MH /2013 [facility] HEMATOLOGY Monocytes 8.6 % 2.0 - 12.0 06/14 Normal MH /2013 [facility] HEMATOLOGY Segs 57.0 % 45.0 - 06/14 Normal MH 75.0 /2013 [facility] HEMATOLOGY Lymphocytes 24.6 % 20.0 - 06/14 Normal MH 40.0 [facility] HEMATOLOGY Hgb 9.6 g/dL 12.0 - 06/14 LOW MH 16.0 [facility] HEMATOLOGY RBC X 10x6 3.33 M/CMM 4.20 - 06/14 LOW MH 5.40 /2013 [facility] HEMATOLOGY Hct 28.5 % 36.0 - 06/14 LOW MH 48.0 /2013 [facility] HEMATOLOGY WBC X 10x3 6.6 K/CMM 3.7 - 10.4 06/14 Normal MH [facility] HEMATOLOGY MPV 9.8 fL 7.4 - 10.4 06/14 Normal [facility] Platelet 196 K/CMM 133 - 450 06/14 Normal MH [facility] HEMATOLOGY RDW 16.0 % 11.5 - 06/14 HI MH 14.5 [facility] HEMATOLOGY MCH 28.9 pg 27.0 - 06/14 Normal MH 31.0 [facility] HEMATOLOGY MCHC 33.8 g/dL 32.0 - 06/14 Normal MH 36.0 [facility] HEMATOLOGY MCV 85.6 fL 81.0 - 06/14 Normal MH 99.0 /2013 [facility] CHEMISTRY Calcium Lvl 8.2 mg/dL 8.5 - 10.5 06/12 LOW MH [facility] CHEMISTRY eGFR 69 06/12 4Result Comment: The eGFR is calculated using the CKD-EPI formula. In most young, healthy individuals the eGFR will be >90 mL/ min/1.73m2. The eGFR declines with age. An eGFR of 60-89 may be normal in mL/min/1.7 some populations, particularly the elderly, for whom the CKD-EPI formula has not been extensively validated. Use of the eGFR is not recommended in the following populations: [facility] 3m2 Individuals with unstable creatinine concentrations, including patients and those with serious co-morbid conditions. Patients with extremes in muscle mass or diet. The data above are obtained from the National Kidney Disease Education Program (NKDEP) which additionally recommends that when the eGFR is used in patients with extremes of body mass index for purposes of drug dosing, the eGFR should be multiplied by the estimated BMI. CHEMISTRY Sodium Lvl 140 meq/L 135 - 145 06/12 Normal [facility] CHEMISTRY Potassium 4.0 meq/L 3.5 - 5.1 06/12 Normal [facility] CHEMISTRY BUN 14 mg/dL 7 - 22 06/12 Normal [facility] CHEMISTRY Creatinine 0.9 mg/dL 0.5 - 1.4 06/12 Normal [facility] CHEMISTRY CO2 28 meq/L 24 - 32 06/12 Normal [facility] CHEMISTRY Chloride Lvl 104 meq/L 95 - 109 06/12 Normal [facility] CHEMISTRY Glucose Lvl 82 mg/dL 70 - 99 06/12 Normal 7Interpretive Data: Adult reference range values reflect the clinical guidelines of the [place] [employer]. [facility] CHEMISTRY AGAP 12.0 meq/L 10.0 - 06/12 Normal 20.0 [facility] HEMATOLOGY Polychrom Slight None Seen 06/12 Normal [facility] (06/12/2013 05:00:00) HEMATOLOGY Target Cell Slight None Seen 06/12 ABN [facility] *ABN* (06/12/2013 05:00:00) HEMATOLOGY Tear Cell Slight None Seen 06/12 ABN [facility] *ABN* (06/12/2013 05:00:00) HEMATOLOGY [place] Cell Slight None Seen 06/12 ABN [facility] *ABN* (06/12/2013 05:00:00) HEMATOLOGY Monocytes # 0.8 K/CMM 0.0 - 0.8 06/12 Normal [facility] HEMATOLOGY Eosinophils 0.5 K/CMM 0.0 - 0.5 06/12 Normal [facility] HEMATOLOGY Segs-Bands # 4.3 K/CMM 1.5 - 8.1 06/12 Normal [facility] HEMATOLOGY Lymphocytes 1.8 K/CMM 1.0 - 5.5 06/12 Normal [facility] HEMATOLOGY Segs 57.7 % 45.0 - 06/12 Normal 75.0 [facility] HEMATOLOGY Plt Morph Normal 06/12 Normal [facility] (06/12/2013 05:00:00) HEMATOLOGY Hypochrom Slight None Seen 06/12 Normal [facility] (06/12/2013 05:00:00) HEMATOLOGY Macrocyte 1+ None Seen 06/12 ABN MH /2013 [facility] *ABN* (06/12/2013 05:00:00) HEMATOLOGY Basophils # 0.1 K/CMM 0.0 - 0.2 06/12 Normal MH [facility] HEMATOLOGY Basophils 0.8 % 0.0 - 1.0 06/12 Normal [facility] HEMATOLOGY Eosinophils 6.6 % 0.0 - 4.0 06/12 HI MH [facility] HEMATOLOGY Lymphocytes 24.6 % 20.0 - 06/12 Normal 40.0 /2013 [facility] HEMATOLOGY Monocytes 10.3 % 2.0 - 12.0 06/12 Normal MH [facility] HEMATOLOGY WBC X 10x3 7.4 K/CMM 3.7 - 10.4 06/12 Normal [facility] HEMATOLOGY Hgb 9.4 g/dL 12.0 - 06/12 LOW 16.0 [facility] HEMATOLOGY RBC X 10x6 3.21 M/CMM 4.20 - 06/12 LOW 5.40 /2013 [facility] HEMATOLOGY MCH 29.3 pg 27.0 - 06/12 Normal 31.0 [facility] HEMATOLOGY MCV 87.7 fL 81.0 - 06/12 Normal 99.0 [facility] HEMATOLOGY Hct 28.2 % 36.0 - 06/12 LOW 48.0 [facility] HEMATOLOGY MPV 9.5 fL 7.4 - 10.4 06/12 Normal MH [facility] HEMATOLOGY RDW 15.5 % 11.5 - 06/12 HI 14.5 [facility] HEMATOLOGY MCHC 33.5 g/dL 32.0 - 06/12 Normal 36.0 /2013 [facility] HEMATOLOGY Platelet 192 K/CMM 133 - 450 06/12 Normal [facility] CHEMISTRY Magnesium 2.0 mg/dL 1.8 - 2.4 06/11 Normal Lvl [facility] CHEMISTRY Phosphorus 3.6 mg/dL 2.5 - 4.5 06/11 Normal [facility] BEDSIDE Glucose POC 103 mg/dL 70 - 99 06/11 HI 1Interpretive GLUCOSE Data: [facility] TESTING Upper Reportable Limit: 200 mg/dL. BEDSIDE Gluc POC Notified 06/11 GLUCOSE Comment 1 RN/MD /2013 [facility] TESTING BEDSIDE Glucose POC 108 mg/dL 70 - 99 06/10 HI 2Interpretive GLUCOSE Data: [facility] TESTING Upper Reportable Limit: 200 mg/dL. BEDSIDE Gluc POC Notified 06/10 GLUCOSE Comment 1 RN/ /2013 [facility] TESTING BEDSIDE Glucose POC 110 mg/dL 70 - 99 06/10 HI 3Interpretive GLUCOSE Data: [facility] TESTING Upper Reportable Limit: 200 mg/dL. CHEMISTRY Magnesium 2.1 mg/dL 1.8 - 2.4 06/10 Normal Lvl [facility] CHEMISTRY Phosphorus 3.5 mg/dL 2.5 - 4.5 06/10 Normal [facility] CHEMISTRY eGFR 80 06/10 5Result Comment: The eGFR is calculated using the CKD-EPI formula. In most young, healthy individuals the eGFR will be >90 mL/ min/1.73m2. The eGFR declines with age. An eGFR of 60-89 may be normal in mL/min/1. some populations, particularly the elderly, for whom the CKD-EPI formula has not been extensively validated. Use of the eGFR is not recommended in the following populations: [address] Individuals with unstable creatinine concentrations, including patients and those with serious co-morbid conditions. Patients with extremes in muscle mass or diet. The data above are obtained from the National Kidney Disease Education Program (NKDEP) which additionally recommends that when the eGFR is used in patients with extremes of body mass index for purposes of drug dosing, the eGFR should be multiplied by the estimated BMI. CHEMISTRY Calcium Lvl 8.2 mg/dL 8.5 - 10.5 06/10 LOW [facility] CHEMISTRY AGAP 9.8 meq/L 10.0 - 06/10 LOW 20.0 [facility] CHEMISTRY CO2 31 meq/L 24 - 32 06/10 Normal [facility] CHEMISTRY Potassium 3.8 meq/L 3.5 - 5.1 06/10 Normal l [facility] CHEMISTRY Chloride Lvl 105 meq/L 95 - 109 06/10 Normal [facility] CHEMISTRY Creatinine 0.8 mg/dL 0.5 - 1.4 06/10 Normal l [facility] CHEMISTRY Sodium Lvl 142 meq/L 135 - 145 06/10 Normal [facility] CHEMISTRY BUN 18 mg/dL 7 - 22 06/10 Normal [facility] CHEMISTRY Glucose Lvl 113 mg/dL 70 - 99 06/10 HI 8Interpretive Data: Adult reference range values reflect the clinical guidelines of the [place] [employer]. [facility] BEDSIDE Gluc POC Notified 06/10 GLUCOSE Comment 1 RN/ /2013 [facility] TESTING CHEMISTRY Phosphorus 3.3 mg/dL 2.5 - 4.5 06/09 Normal [facility] CHEMISTRY Calcium Lvl 7.9 mg/dL 8.5 - 10.5 06/09 LOW [facility] CHEMISTRY CO2 30 meq/L 24 - 32 06/09 Normal [facility] CHEMISTRY AGAP 12.5 meq/L 10.0 - 06/09 Normal 20. [facility] CHEMISTRY eGFR 69 06/09 6Result Comment: The eGFR is calculated using the CKD-EPI formula. In most young, healthy individuals the eGFR will be >90 mL/ min/1.73m2. The eGFR declines with age. An eGFR of 60-89 may be normal in mL/min/1.7 some populations, particularly the elderly, for whom the CKD-EPI formula has not been extensively validated. Use of the eGFR is not recommended in the following populations: [facility] 3m2 Individuals with unstable creatinine concentrations, including patients and those with serious co-morbid conditions. Patients with extremes in muscle mass or diet. The data above are obtained from the National Kidney Disease Education Program (NKDEP) which additionally recommends that when the eGFR is used in patients with extremes of body mass index for purposes of drug dosing, the eGFR should be multiplied by the estimated BMI. CHEMISTRY Glucose Lvl 112 mg/dL 70 - 99 06/09 HI 9Interpretive Data: Adult reference range values reflect the clinical guidelines of the [place] [employer]. [facility] CHEMISTRY BUN 17 mg/dL 7 - 22 06/09 Normal [facility] CHEMISTRY Sodium Lvl 140 meq/L 135 - 145 06/09 Normal [facility] CHEMISTRY Creatinine 0.9 mg/dL 0.5 - 1.4 06/09 Normal Lv [facility] CHEMISTRY Chloride Lvl 101 meq/L 95 - 109 06/09 Normal [facility] CHEMISTRY Potassium 3.5 meq/L 3.5 - 5.1 06/09 Normal Lv [facility] CHEMISTRY Magnesium 2.0 mg/dL 1.8 - 2.4 06/09 Normal Lvl [facility] IMMUNOLOGY Prealbumin 7.8 mg/dL 18.0 - 06/09 LOW 45.0 [facility] CHEMISTRY Trig 123 mg/dL <=149 06/08 Normal [facility] CHEMISTRY Alk Phos 63 unit/L 39 - 136 06/08 Normal [facility] CHEMISTRY ASPARTATE 7 unit/L 0 - 37 06/08 Normal TRANSAMINASE [facility] CHEMISTRY Bili Total 0.5 mg/dL 0.2 - 1.3 06/08 Normal [facility] CHEMISTRY B/C Ratio 20 6 - 25 06/08 Normal [facility] CHEMISTRY Total 5.5 g/dL 6.4 - 8.4 06/08 LOW Protein [facility] CHEMISTRY Globulin 3.3 g/dL 2.0 - 4.0 06/08 Normal [facility] CHEMISTRY A/G Ratio 0.7 0.7 - 1.6 06/08 Normal [facility] CHEMISTRY Albumin Lvl 2.2 g/dL 3.5 - 5.0 06/08 LOW [facility] CHEMISTRY ALANINE 6 unit/L 0 - 65 06/08 Normal AMINOTRANS [facility] RAS HEMATOLOGY Segs-Bands # 6.8 K/CMM 1.5 - 8.1 06/08 Normal [facility] HEMATOLOGY Basophils 0.5 % 0.0 - 1.0 06/08 Normal [facility] HEMATOLOGY Eosinophils 4.1 % 0.0 - 4.0 06/08 HI MH [facility] HEMATOLOGY Monocytes # 0.7 K/CMM 0.0 - 0.8 06/08 Normal [facility] HEMATOLOGY Lymphocytes 1.2 K/CMM 1.0 - 5.5 06/08 Normal MH # [facility] HEMATOLOGY Monocytes 8.0 % 2.0 - 12.0 06/08 Normal [facility] HEMATOLOGY Lymphocytes 12.8 % 20.0 - 06/08 LOW 40.0 [facility] HEMATOLOGY Basophils # 0.0 K/CMM 0.0 - 0.2 06/08 Normal [facility] HEMATOLOGY Eosinophils 0.4 K/CMM 0.0 - 0.5 06/08 Normal MH # [facility] HEMATOLOGY Segs 74.6 % 45.0 - 06/08 Normal 75.0 /2013 [facility] HEMATOLOGY MCHC 34.2 g/dL 32.0 - 06/08 Normal 36.0 /2013 [facility] HEMATOLOGY MCH 29.0 pg 27.0 - 06/08 Normal 31.0 /2013 [facility] HEMATOLOGY RDW 15.6 % 11.5 - 06/08 HI MH 14.5 [facility] HEMATOLOGY MPV 9.9 fL 7.4 - 10.4 06/08 Normal /2013 [facility] HEMATOLOGY Platelet 141 K/CMM 133 - 450 06/08 Normal [facility] HEMATOLOGY MCV 84.8 fL 81.0 - 06/08 Normal 99.0 /2013 [facility] HEMATOLOGY Hct 27.3 % 36.0 - 06/08 LOW 48.0 /2013 [facility] HEMATOLOGY WBC X 10x3 9.1 K/CMM 3.7 - 10.4 06/08 Normal [facility] HEMATOLOGY RBC X 10x6 3.21 M/CMM 4.20 - 06/08 LOW 5.40 /2013 [facility] HEMATOLOGY Hgb 9.3 g/dL 12.0 - 06/08 LOW 16.0 /2013 [facility] CHEMISTRY Vanco Tr TND 1500 06/07 [facility] CHEMISTRY Vanco Tr 4.7 ug/ml 06/07 10Interpretive Data: Therapeutic Range: Trough: 10 - 20 ug/mL [facility] Peak: 20 - 40 ug/mL Potential Toxicity: >80 ug/mL HEMATOLOGY aPTT 33.8 s 22.9 - 06/07 Normal 12Interpretiv 35.8 e Data: [facility] Heparin Therapeutic Range: 57 - 92 Seconds HEMATOLOGY INR 1.25 0.85 - 06/07 [place] 11Interpretive Data: RECOMMENDED RANGES FOR PROTIME INR: . 2.0-3.0 for most medical and surgical thromboembolic states. [facility] 2.5-3.5 for artificial heart valves and recurrent embolism. INR SHOULD BE USED ONLY FOR PATIENTS ON STABLE ANTICOAGULANT THERAPY. HEMATOLOGY PROTIME 15.6 s 12.0 - 06/07 [facility] 14.7 [facility] HEMATOLOGY FSP >=5 <20 <5 06/07 ABN MH ug/ml /2013 [facility] HEMATOLOGY Fibrinogen 694 mg/dL 230 - 510 06/07 HI Lvl [facility] HEMATOLOGY MPV 9.7 fL 7.4 - 10.4 06/07 Normal [facility] HEMATOLOGY RDW 15.5 % 11.5 - 06/07 HI 14.5 [facility] HEMATOLOGY Platelet 139 K/CMM 133 - 450 06/07 Normal [facility] HEMATOLOGY MCH 27.9 pg 27.0 - 06/07 Normal 31.0 /2013 [facility] HEMATOLOGY MCHC 33.0 g/dL 32.0 - 06/07 Normal 36.0 /2013 [facility] HEMATOLOGY MCV 84.5 fL 81.0 - 06/07 Normal 99.0 /2013 [facility] HEMATOLOGY Hgb 9.5 g/dL 12.0 - 06/07 LOW 16.0 /2013 [facility] HEMATOLOGY Hct 28.7 % 36.0 - 01 LOW 48.0 /2013 [facility] HEMATOLOGY WBC X 10x3 11.0 K/CMM 3.7 - 10.4 06/07 HI /2013 [facility] HEMATOLOGY RBC X 10x6 3.40 M/CMM 4.20 - 01 LOW 5.40 /2013 [facility] BLOOD BANK RBC product Product available 06/06 Normal RESULTS /2013 [facility] (06/06/2013 12:03:00) HEMATOLOGY aPTT 36.6 s 22.9 - 06/06 HI 13Interpretiv MH 35.8 /2013 e Data: [facility] Heparin Therapeutic Range: 57 - 92 Seconds CHEMISTRY ALANINE 19 unit/L 0 - 65 06/05 Normal AMINOTRANS [facility] RASE CHEMISTRY Albumin Lvl 3.0 g/dL 3.5 - 5.0 06/05 LOW [facility] CHEMISTRY ASPARTATE 14 unit/L 0 - 37 06/05 Normal TRANSAMINASE [facility] CHEMISTRY Total 5.7 g/dL 6.4 - 8.4 06/05 LOW Protein [facility] CHEMISTRY Bili Total 0.5 mg/dL 0.2 - 1.3 06/05 Normal [facility] CHEMISTRY B/C Ratio 8 6 - 25 06/05 Normal [facility] CHEMISTRY A/G Ratio 1.1 0.7 - 1.6 06/05 Normal [facility] CHEMISTRY Globulin 2.7 g/dL 2.0 - 4.0 06/05 Normal [facility] CHEMISTRY Alk Phos 51 unit/L 39 - 136 06/05 Normal [facility] HEMATOLOGY Segs-Bands # 12.9 K/CMM 1.5 - 8.1 06/04 [place] [facility] HEMATOLOGY Segs 71.0 % 45.0 - 06/04 Normal 75.0 /2013 [facility] HEMATOLOGY Bands 7.0 % 0.0 - 11.0 06/04 Normal [facility] HEMATOLOGY Lymphocytes 2.6 K/CMM 1.0 - 5.5 06/04 Normal # /2013 [facility] HEMATOLOGY Basophils # 0.5 K/CMM 0.0 - 0.2 06/04 HI [facility] HEMATOLOGY Monocytes # 0.5 K/CMM 0.0 - 0.8 06/04 Normal MH [facility] HEMATOLOGY Stomatocyte Slight None Seen 06/04 ABN MH [facility] *ABN* (06/04/2013 15:45:01) HEMATOLOGY Basophils 3.0 % 0.0 - 1.0 06/04 HI MH [facility] HEMATOLOGY Monocytes 3.0 % 2.0 - 12.0 06/04 Normal MH [facility] HEMATOLOGY Lymphocytes 9.0 % 20.0 - 06/04 LOW MH 40.0 [facility] HEMATOLOGY Atypical 7.0 % <=0.0 06/04 HI MH Lymphs [facility] HEMATOLOGY Plt Morph Normal 06/04 Normal MH [facility] (06/04/2013 15:45:01) BLOOD BANK RBC product Product available 06/04 Normal MH RESULTS [facility] (06/04/2013 12:06:00) BLOOD BANK ABO/Rh O POS 06/03 MH RESULTS [facility] BLOOD BANK Antibody Negative 06/03 Normal RESULTS Scrn [facility] (06/03/2013 05:45:00) CVC insert CVC insert Central venous catheter placement: 06/03 - non-tunnel non-tunnel - [facility] age 5+ yrs age 5+ yrs VR VR This procedure, its risks, benefits and alternatives were discussed with the patient prior to the procedure. Informed consent was obtained Read by : Mack Hankins Dictated Date/time: 06/03/13 11:45 Electronically Signed by: Mack Hankins MD 06/03/13 11:47 FINAL REPORT The left internal jugular vein was localized by ultrasound. This vein was demonstrated to be patent and readily compressible. Utilizing real time ultrasound guidance and Seldinger technique a 7 English triple lumen catheter was introduced into the left internal jugular vein. A hardcopy ultrasound image was obtained during this proceedure. Under fluoroscopic guidance the tip of the catheter was positio chidi within the junction of the vena cava and right atrium. . A spot film of the chest was obtained. The patient tolerated the procedure well. There were no immediate complications.Maximum barrier sterile technique was utilized for this proceedure fluoro time : 0.1 minute SL: 14 Chest Chest 1view PORTABLE CHEST 05/31/2013 AT 1805 HOURS. 05/31 - - [facility] INDICATION: PICC placement. Read by: Petros Wood Dictated Date/time: 05/31/13 18:30 Electronically Signed by: Petros Wood MD 05/31/13 18:31 FINAL REPORT COMPARISON: Chest 09/16/2011. Right PICC terminates within the superior vena cava. The cardiac silhouette is at least top normal in size. The lungs are incompletely inflated. No pneumonia, vascular congestion or pleural effusion is seen. Moderate thoracic spondylosis is noted. SL: 12 CHEMISTRY T3 Total 1.32 ng/mL 0.60 - 05/31 Normal 1.81 [facility] CHEMISTRY TSH 8.430 0.360 - 05/31 HI uIU/mL 3.740 [facility] CHEMISTRY T4 9.0 ug/dl 4.7 - 13.3 05/31 Normal /2013 [facility] Abdomen/Pe Abdomen/Pelv CT abdomen and pelvis without IV contrast, May 31, 2013 01:20:00 PM 05/31 - lvis wo IV is IV /2013 - [facility] contrast contrast CT CT CLINICAL HISTORY: Abdominal pain, acute ; vomiting Read by: Delores Hanks Dictated Date/time: 05/31/13 13:50 Electronically Signed by: Delores Hanks MD 05/31/13 13:58 FINAL REPORT TECHNIQUE: Routine 5mm thick axial images of the abdomen and pelvis were obtained without any contrast. Coronal and sagittal reformations were created. COMPARISON: Abdominopelvic CT August 2011 FINDINGS: Visualized lung bases are clear. The study is limited without the use of IV contrast for evaluation of the visceral parenchymal organs. However the spleen, pancreas, and adrenal glands are grossly normal. Kidneys are grossly normal. Partially distended bladder is unremarkable. Excreted IV contrast in the collecting system from a prior examination is present. Gallbladder is present. Mild diffuse fatty infiltration of liver is present. Uterus and ovaries are present. Midline ventral abdominal wall hernia with a 6.3 cm mouth contains few loops of nonobstructed small intestine. Second inferiorly located adjacent midline ventral abdominal wall hernia with a widemouth i s present containing a short segment of nonobstructed transverse colon. Anterior abdominal wall scattered areas of scarring are present. Distal left and proximal sigmoid colonic diverticulosis is present. Gastric sleeve postoperative changes are noted. Otherwise, the stomach, small intestine, and colon are grossly unremarkable. Appendix is not identified. No free air or free fluid is present. No mesenteric or retroperitoneal lymphadenopathy is present. Bones are unremarkable. IMPRESSION: 1. Mild diffuse fatty infiltration of liver. 2. Midline ventral abdominal wall couple of widemouthed hernias, containing few loops of nonobstructed bowel. SL: 14 BEDSIDE Gluc POC 95 mg/dL 70 - 99 09/20 Normal 2Interpretive GLUCOSE Lifscn /2011 Data: [facility] TESTING Upper Reportable Limit: 200 mg/dL. BEDSIDE Comment1 Notify 09/20 NA GLUCOSE RN/MD /2011 [facility] TESTING BEDSIDE Comment2 Assess 09/20 NA GLUCOSE Patient /2011 [facility] TESTING BEDSIDE Comment2 Assess 09/20 NA GLUCOSE Patient /2011 [facility] TESTING BEDSIDE Comment1 Notify 09/20 NA GLUCOSE RN/MD /2011 [facility] TESTING BEDSIDE Gluc POC 107 mg/dL 70 - 99 09/20 [place] 3Interpretive GLUCOSE Lifscn Data: [facility] TESTING Upper Reportable Limit: 200 mg/dL. CHEMISTRY Magnesium 1.6 mg/dL 1.8 - 2.4 09/20 LOW Lv [facility] CHEMISTRY Creatinine 1.2 mg/dL 0.5 - 1.4 09/20 Normal Lvl [facility] CHEMISTRY BUN 19 mg/dL 7 - 22 09/20 Normal [facility] CHEMISTRY Glucose Lvl 94 mg/dL 70 - 99 09/20 Normal 5Interpretive Data: Adult [facility] reference range values reflect the clinical guidelinesof the [place] [employer]. CHEMISTRY Calcium Lvl 7.9 mg/dL 8.5 - 10.5 09/20 LOW [facility] CHEMISTRY Potassium 3.9 meq/L 3.5 - 5.1 09/20 Normal Lvl [facility] CHEMISTRY Sodium Lvl 146 meq/L 135 - 145 09/20 HI [facility] CHEMISTRY CO2 24 meq/L 24 - 32 09/20 Normal [facility] CHEMISTRY Chloride Lvl 110 meq/L 95 - 109 09/20 HI [facility] CHEMISTRY AGAP 15.9 meq/L 10.0 - 09/20 Normal 20.0 [facility] HEMATOLOGY Monocytes # 0.9 K/CMM 0.0 - 0.8 09/20 HI MH [facility] HEMATOLOGY Eosinophils 0.6 K/CMM 0.0 - 0.5 09/20 HI MH # /2011 [facility] HEMATOLOGY Basophils # 0.0 K/CMM 0.0 - 0.2 09/20 Normal MH /2011 [facility] HEMATOLOGY Lymphocytes 1.9 K/CMM 1.0 - 5.5 09/20 Normal MH # /2011 [facility] HEMATOLOGY Eosinophils 6.7 % 0.0 - 4.0 09/20 HI MH /2011 [facility] HEMATOLOGY Basophils 0.4 % 0.0 - 1.0 09/20 Normal [facility] HEMATOLOGY Segs-Bands # 4.9 K/CMM 1.5 - 8.1 09/20 Normal [facility] HEMATOLOGY Lymphocytes 22.7 % 20.0 - 09/20 Normal MH 40.0 /2011 [facility] HEMATOLOGY Monocytes 10.5 % 2.0 - 12.0 09/20 Normal MH /2011 [facility] HEMATOLOGY Segs 59.7 % 45.0 - 09/20 Normal 75.0 /2011 [facility] HEMATOLOGY RBC 3.15 M/CMM 4.20 - 09/20 LOW 5.40 /2011 [facility] WBC 8.2 K/CMM 3.7 - 10.4 09/20 Normal [facility] Hct 28.1 % 36.0 - 09/20 LOW 48.0 [facility] HEMATOLOGY RDW 14.5 % 11.5 - 09/20 Normal 14.5 [facility] MCH 30.3 pg 27.0 - 09/20 Normal 31.0 [facility] MCV 89.4 fL 81.0 - 09/20 Normal 99.0 [facility] MCHC 33.9 g/dL 32.0 - 09/20 Normal 36.0 [facility] Hgb 9.5 g/dL 12.0 - 09/20 LOW 16.0 [facility] HEMATOLOGY MPV 9.1 fL 7.4 - 10.4 09/20 Normal MH [facility] HEMATOLOGY Platelet 152 K/CMM 133 - 450 09/20 Normal [facility] HEMATOLOGY PTT 29.9 s 22.9 - 09/20 Normal 21Interpretiv MH 35.8 /2011 e Data: [facility] Heparin Therapeutic Range: 57 - 92 Seconds HEMATOLOGY INR 1.23 0.85 - 09/20 HI 18Interpretiv MH 1.17 e Data: [facility] RECOMMENDED RANGES FOR PROTIME INR: 2.0-3.0 for most medical and surgical thromboemboli c states. 2.5-3.5 for artificial heart valves and recurrent embolism.INR SHOULD BE USED ONLY FOR PATIENTS ON STABLE ANTICOAGULANT THERAPY. HEMATOLOGY PT 15.5 s 12.0 - 09/20 [facility] 14.7 [facility] Microbiolo Culture: 09/20 gy Urine [facility] BEDSIDE Gluc POC 97 mg/dL 70 - 99 09/20 Normal 4Interpretive GLUCOSE Lifscn Data: [facility] TESTING Upper Reportable Limit: 200 mg/dL. BEDSIDE Comment1 Notify 09/20 NA GLUCOSE RN/MD [facility] TESTING CHEMISTRY Magnesium 1.7 mg/dL 1.8 - 2.4 09/19 LOW Lvl [facility] CHEMISTRY AGAP 17.4 meq/L 10.0 - 09/19 Normal 20.0 [facility] CHEMISTRY Chloride Lvl 112 meq/L 95 - 109 09/19 HI [facility] CHEMISTRY CO2 20 meq/L 24 - 32 09/19 LOW [facility] CHEMISTRY Sodium Lvl 146 meq/L 135 - 145 09/19 [facility] CHEMISTRY Potassium 3.4 meq/L 3.5 - 5.1 09/19 LOW Lvl [facility] CHEMISTRY Creatinine 1.3 mg/dL 0.5 - 1.4 09/19 Normal Lvl [facility] CHEMISTRY Calcium Lvl 8.1 mg/dL 8.5 - 10.5 09/19 LOW [facility] CHEMISTRY BUN 23 mg/dL 7 - 09/19 [place] MH [facility] CHEMISTRY Glucose Lvl 112 mg/dL 70 - 99 09/19 [place] 6Interpretive MH Data: Adult [facility] reference range values reflect the clinical guidelinesof the [place] [employer]. CHEMISTRY Ammonia 28.0 <=45.0 09/19 Normal umol/L [facility] CHEMISTRY T4 9.9 ug/dl 4.7 - 13.3 09/19 Normal [facility] CHEMISTRY T3 Total 0.64 ng/mL 0.50 - 09/19 Normal 1.48 [facility] HEMATOLOGY INR 1.18 0.85 - 09/19 HI 19Interpretiv 1.17 e Data: [facility] RECOMMENDED RANGES FOR PROTIME INR: 2.0-3.0 for most medical and surgical thromboemboli c states. 2.5-3.5 for artificial heart valves and recurrent embolism.INR SHOULD BE USED ONLY FOR PATIENTS ON STABLE ANTICOAGULANT THERAPY. HEMATOLOGY PT 15.0 s 12.0 - 09/19 [facility] 14.7 [facility] HEMATOLOGY PTT 32.0 s 22.9 - 09/19 Normal 22Interpretiv MH 35.8 /2011 e Data: [facility] Heparin Therapeutic Range: 57 - 92 Seconds HEMATOLOGY RDW 14.8 % 11.5 - 09/19 HI 14.5 [facility] HEMATOLOGY MCHC 33.5 g/dL 32.0 - 09/19 Normal 36.0 /2011 [facility] HEMATOLOGY Platelet 169 K/CMM 133 - 450 09/19 Normal MH /2011 [facility] HEMATOLOGY MPV 8.7 fL 7.4 - 10.4 09/19 Normal MH /2011 [facility] HEMATOLOGY RBC 3.70 M/CMM 4.20 - 09/19 LOW 5.40 /2011 [facility] HEMATOLOGY WBC 7.5 K/CMM 3.7 - 10.4 09/19 Normal MH /2011 [facility] HEMATOLOGY Hgb 11.0 g/dL 12.0 - 09/19 LOW 16.0 [facility] HEMATOLOGY Hct 33.0 % 36.0 - 09/19 LOW 48.0 [facility] HEMATOLOGY MCV 89.1 fL 81.0 - 09/19 Normal 99.0 /2011 [facility] HEMATOLOGY MCH 29.8 pg 27.0 - 09/19 Normal 31.0 /2011 [facility] HEMATOLOGY Basophils # 0.0 K/CMM 0.0 - 0.2 09/19 Normal /2011 [facility] HEMATOLOGY Eosinophils 0.6 K/CMM 0.0 - 0.5 09/19 HI # /2011 [facility] HEMATOLOGY Lymphocytes 21.8 % 20.0 - 09/19 Normal 40.0 [facility] HEMATOLOGY Segs 62.1 % 45.0 - 09/19 Normal 75.0 [facility] HEMATOLOGY Monocytes # 0.6 K/CMM 0.0 - 0.8 09/19 Normal /2011 [facility] HEMATOLOGY Lymphocytes 1.6 K/CMM 1.0 - 5.5 09/19 Normal # /2011 [facility] HEMATOLOGY Segs-Bands # 4.7 K/CMM 1.5 - 8.1 09/19 Normal /2011 [facility] HEMATOLOGY Basophils 0.3 % 0.0 - 1.0 09/19 Normal /2011 [facility] HEMATOLOGY Eosinophils 7.7 % 0.0 - 4.0 09/19 HI /2011 [facility] HEMATOLOGY Monocytes 8.1 % 2.0 - 12.0 09/19 Normal [facility] CHEMISTRY Magnesium 1.8 mg/dL 1.8 - 2.4 09/18 Normal Lvl [facility] CHEMISTRY Sodium Lvl 144 meq/L 135 - 145 09/18 Normal [facility] CHEMISTRY Potassium 3.5 meq/L 3.5 - 5.1 09/18 Normal MH Lvl [facility] CHEMISTRY Creatinine 1.3 mg/dL 0.5 - 1.4 09/18 Normal Lvl [facility] CHEMISTRY Chloride Lvl 110 meq/L 95 - 109 09/18 HI [facility] CHEMISTRY CO2 22 meq/L 24 - 32 09/18 LOW [facility] CHEMISTRY AGAP 15.5 meq/L 10.0 - 09/18 Normal MH 20.0 [facility] CHEMISTRY Calcium Lvl 8.0 mg/dL 8.5 - 10.5 09/18 LOW [facility] CHEMISTRY BUN 31 mg/dL 7 - 22 09/18 HI [facility] CHEMISTRY Glucose Lvl 90 mg/dL 70 - 99 09/18 Normal 7Interpretive Data: Adult [facility] reference range values reflect the clinical guidelinesof the [place] [employer]. HEMATOLOGY Segs-Bands # 6.0 K/CMM 1.5 - 8.1 09/18 Normal [facility] HEMATOLOGY Monocytes # 0.8 K/CMM 0.0 - 0.8 09/18 Normal [facility] HEMATOLOGY Lymphocytes 1.7 K/CMM 1.0 - 5.5 09/18 Normal MH [facility] HEMATOLOGY Eosinophils 0.6 K/CMM 0.0 - 0.5 09/18 HI MH [facility] HEMATOLOGY Monocytes 8.5 % 2.0 - 12.0 09/18 Normal [facility] HEMATOLOGY Lymphocytes 18.2 % 20.0 - 09/18 LOW MH 40.0 [facility] HEMATOLOGY Basophils 0.4 % 0.0 - 1.0 09/18 Normal [facility] HEMATOLOGY Eosinophils 6.7 % 0.0 - 4.0 09/18 HI [facility] HEMATOLOGY Basophils # 0.0 K/CMM 0.0 - 0.2 09/18 Normal [facility] HEMATOLOGY Segs 66.2 % 45.0 - 09/18 Normal MH 75.0 /2011 [facility] HEMATOLOGY MCV 89.3 fL 81.0 - 09/18 Normal 99.0 [facility] HEMATOLOGY Hct 31.0 % 36.0 - 09/18 LOW MH 48.0 /2011 [facility] HEMATOLOGY RBC 3.48 M/CMM 4.20 - 09/18 LOW 5.40 /2011 [facility] HEMATOLOGY Hgb 10.5 g/dL 12.0 - 09/18 LOW 16.0 /2011 [facility] HEMATOLOGY MCH 30.1 pg 27.0 - 09/18 Normal 31.0 /2011 [facility] HEMATOLOGY Platelet 189 K/CMM 133 - 450 09/18 Normal [facility] HEMATOLOGY RDW 14.7 % 11.5 - 09/18 HI 14.5 [facility] HEMATOLOGY MPV 8.3 fL 7.4 - 10.4 09/18 Normal [facility] HEMATOLOGY MCHC 33.7 g/dL 32.0 - 09/18 Normal 36.0 /2011 [facility] HEMATOLOGY WBC 9.1 K/CMM 3.7 - 10.4 09/18 Normal [facility] HEMATOLOGY INR 1.22 0.85 - 09/18 [place] 20Interpretiv 1.17 e Data: [facility] RECOMMENDED RANGES FOR PROTIME INR: 2.0-3.0 for most medical and surgical thromboemboli c states. 2.5-3.5 for artificial heart valves and recurrent embolism.INR SHOULD BE USED ONLY FOR PATIENTS ON STABLE ANTICOAGULANT THERAPY. HEMATOLOGY PT 15.4 s 12.0 - 09/18 [facility] 14.7 [facility] HEMATOLOGY PTT 30.7 s 22.9 - 09/18 Normal 23Interpretiv 35.8 e Data: [facility] Heparin Therapeutic Range: 57 - 92 Seconds CHEMISTRY Vanco Tr TND 1400 09/17 NA [facility] CHEMISTRY Vanco Tr 3.5 ug/ml 09/17 14Interpretiv e Data: [facility] Therapeutic Range: Trough: 10 - 20 ug/mL Peak: 20 - 40 ug/mL Potential Toxicity: >80 ug/mL BEDSIDE Comment2 Assess 09/17 NA GLUCOSE Patient [facility] TESTING HEMATOLOGY Plt Morph Normal 09/17 Normal [facility] (09/18/2011 06:50:00) HEMATOLOGY Polychrom Slight None Seen 09/17 Normal [facility] (09/18/2011 06:50:00) HEMATOLOGY Hypochrom Slight None Seen 09/17 Normal [facility] (09/18/2011 06:50:00) CHEMISTRY Phosphorus 2.9 mg/dL 2.5 - 4.5 04/21 Normal [facility] HEMATOLOGY FSP >=20 ug/ml <5 09/16 ABN /2011 [facility] *ABN* (09/17/2011 05:30:00) CHEMISTRY Mode Art NC 09/15 Normal [facility] (09/16/2011 06:04:00) CHEMISTRY Allens Art Positive 09/15 Normal [facility] (09/16/2011 06:04:00) CHEMISTRY Flow Art 3.5 09/15 NA [facility] CHEMISTRY Site Art Right Ra 09/15 Normal [facility] (09/16/2011 06:04:00) CHEMISTRY O2 Sat Art 96.0 % 95.0 - 09/15 Normal MH 100.0 [facility] CHEMISTRY Temp Art 37.0 Lisa 09/15 NA [facility] CHEMISTRY BE Art -1 mMol/L -2-2 - 2 09/15 Normal [facility] CHEMISTRY pCO2 Art 37 mm[Hg] 35 - 45 09/15 Normal [facility] CHEMISTRY pH Art 7.41 7.35 - 09/15 Normal MH 7.45 [facility] CHEMISTRY pO2 Art 78 mm[Hg] 80 - 100 09/15 LOW [facility] CHEMISTRY HCO3 Art 24 mMol/L 22 - 26 09/15 Normal [facility] CHEMISTRY A/G Ratio 0.9 0.7 - 1.6 09/15 Normal [facility] CHEMISTRY Globulin 3.0 g/dL 2.0 - 4.0 09/15 Normal [facility] CHEMISTRY B/C Ratio 26 6 - 25 09/15 HI [facility] CHEMISTRY ALT 8 U/L 0 - 65 09/15 Normal [facility] CHEMISTRY Bili Total 0.7 mg/dL 0.2 - 1.3 09/15 Normal [facility] CHEMISTRY Alk Phos 52 U/L 39 - 136 09/15 Normal [facility] CHEMISTRY Albumin Lvl 2.8 g/dL 3.5 - 5.0 09/15 LOW [facility] CHEMISTRY Total 5.8 g/dL 6.4 - 8.4 09/15 LOW [facility] CHEMISTRY AST 12 U/L 0 - 37 09/15 Normal [facility] CHEMISTRY BNP 281 pg/mL <=100 09/15 [place] 8Interpretive Data: [facility] Elevated results are in line with increasing severity of congestive heart failure. Minor elevations between 100 and 300 may be seen with Myocardial Ischemia, Sodium retaining drugs, and compensated/t reated heart failure. CHEMISTRY Phosphorus 2.7 mg/dL 2.5 - 4.5 09/15 Normal [facility] HEMATOLOGY FSP >=5 <20 <5 09/15 ABN MH ug/ml /2011 [facility]
*ABN*
(08/28 03:15:00) <sup> </sup> CHEMISTRY pCO2 Art 36 mm[Hg] 35 - 45 09/14 Normal [facility] CHEMISTRY pH Art 7.39 7.35 - 09/14 Normal MH 7.45 [facility] CHEMISTRY pO2 Art 108 mm[Hg] 80 - 100 09/14 HI [facility] CHEMISTRY Temp Art 37.0 Lisa 09/14 NA [facility] CHEMISTRY Site Art Right Ra 09/14 Normal [facility] (09/15/2011 06:08:00) CHEMISTRY Allens Art Positive 09/14 Normal [facility] (09/15/2011 06:08:00) CHEMISTRY BE Art -3 mMol/L -2-2 - 2 09/14 LOW [facility] CHEMISTRY HCO3 Art 22 mMol/L 22 - 26 09/14 Normal [facility] CHEMISTRY Mode Art A/C 09/14 Normal [facility] (09/15/2011 06:08:00) CHEMISTRY O2 Sat Art 98.0 % 95.0 - 09/14 Normal MH 100.0 [facility] CHEMISTRY FiO2 Art 40.0 09/14 NA [facility] CHEMISTRY CK MB 0.9 ng/mL 0.5 - 3.6 09/14 Normal [facility] CHEMISTRY Total CK 562 U/L 12 - 191 09/14 HI [facility] CHEMISTRY Troponin-I 0.03 ng/mL 0.00 - 09/14 Normal MH 0.40 [facility] CHEMISTRY Phosphorus 2.9 mg/dL 2.5 - 4.5 09/14 Normal [facility] CHEMISTRY Ca Ion mgdL 4.08 mg/dL 4.65 - 09/14 LOW MH 5. [facility] CHEMISTRY Ca Norm mgdL 4.04 mg/dL 4.65 - 09/14 LOW MH 5. [facility] CHEMISTRY Ca Norm 1.01 1.16 - 09/14 LOW MH mMol/L 1. [facility] CHEMISTRY Ca Ion 1.02 1.16 - 09/14 LOW MH mMol/L 1.30 [facility] CHEMISTRY CK MB Index 0.2 0.0 - 2.5 09/14 Normal [facility] CHEMISTRY Vanco Lvl unknown 09/14 NA MH TLD [facility] CHEMISTRY Vanco Lvl 9.2 ug/ml 09/14 NA 12Interpretiv e Data: [facility] Therapeutic Range: Trough: 10 - 20 ug/mL Peak: 20 - 40 ug/mL Potential Toxicity: >80 ug/mL CHEMISTRY BNP 403 pg/mL <=100 09/14 [place] 9Interpretive Data: [facility] Elevated results are in line with increasing severity of congestive heart failure. Minor elevations between 100 and 300 may be seen with Myocardial Ischemia, Sodium retaining drugs, and compensated/t reated heart failure. HEMATOLOGY FSP >=5 <20 <5 09/14 ABN MH ug/ml [facility]
*ABN*
(08/27 03:00:00) <sup> </sup> CHEMISTRY CK MB 1.2 ng/mL 0.5 - 3.6 09/13 Normal [facility] CHEMISTRY Total CK 872 U/L 09/13 HI [facility] CHEMISTRY Troponin-I 0.04 ng/mL 0.00 - 09/13 Normal 0.40 [facility] CHEMISTRY CK MB Index 0.1 0.0 - 2.5 09/13 Normal [facility] BLOOD BANK RBC product Product available 09/13 Normal RESULTS /2011 [facility] (09/14/2011 09:07:00) BLOOD BANK Antibody Negative 09/13 Normal RESULTS Scrn [facility] (09/14/2011 09:05:00) BLOOD BANK ABO/Rh O POS 09/13 Unknown MH RESULTS /2011 [facility] CHEMISTRY CK MB 2.0 ng/mL 0.5 - 3.6 09/13 Normal [facility] CHEMISTRY Total CK 1190 U/L - 09/13 HI [facility] CHEMISTRY Troponin-I 0.05 ng/mL 0.00 - 09/13 Normal MH 0.40 [facility] CHEMISTRY CK MB Index 0.2 0.0 - 2.5 09/13 Normal [facility] CHEMISTRY T4 Free 1.01 ng/dL 0.76 - 09/13 Normal MH 1.46 [facility] CHEMISTRY T3 Free 1.51 pg/mL 2.18 - 09/13 LOW MH 3.98 /2012 [facility] CHEMISTRY TSH 4.590 0.360 - 09/13 HI MH uIU/mL 3.740 /2011 [facility] CHEMISTRY HCO3 Art 22 mMol/L 22 - 26 09/13 Normal [facility] CHEMISTRY Site Art A Line 09/13 Normal MH /2011 [facility] (09/14/2011 04:29:00) CHEMISTRY O2 Sat Art 96.0 % 95.0 - 09/13 Normal MH 100.0 /2011 [facility] CHEMISTRY Mode Art A/C 09/13 Normal /2011 [facility] (09/14/2011 04:29:00) CHEMISTRY Temp Art 37.0 Lisa 09/13 NA [facility] CHEMISTRY Vt Art 500 09/13 NA MH [facility] CHEMISTRY PEEP Art 5.0 09/13 NA [facility] CHEMISTRY FiO2 Art 40.0 09/13 NA [facility] CHEMISTRY pO2 Art 86 mm[Hg] 80 - 100 09/13 Normal [facility] CHEMISTRY BE Art -4 mMol/L -2-2 - 2 09/13 LOW [facility] CHEMISTRY pCO2 Art 38 mm[Hg] 35 - 45 09/13 Normal [facility] CHEMISTRY pH Art 7.36 7.35 - 09/13 Normal MH 7.45 /2011 [facility] CHEMISTRY Vanco Lvl ntn 09/13 NA MH TLD [facility] CHEMISTRY Vanco Lvl 3.3 ug/ml 09/13 NA 13Interpretiv e Data: [facility] Therapeutic Range: Trough: 10 - 20 ug/mL Peak: 20 - 40 ug/mL Potential Toxicity: >80 ug/mL CHEMISTRY Ca Ion 1.00 1.16 - 09/13 LOW MH mMol/L . [facility] CHEMISTRY Ca Norm 0.98 1.16 - 09/13 LOW MH mMol/L . [facility] CHEMISTRY Ca Ion mgdL 4.00 mg/dL 4.65 - 09/13 LOW MH 5. [facility] CHEMISTRY Ca Norm mgdL 3.92 mg/dL 4.65 - 09/13 LOW MH 5. [facility] CHEMISTRY BNP 301 pg/mL <=100 09/13 [place] 10Interpretiv e Data: [facility] Elevated results are in line with increasing severity of congestive heart failure. Minor elevations between 100 and 300 may be seen with Myocardial Ischemia, Sodium retaining drugs, and compensated/t reated heart failure. CHEMISTRY Lactic Acid 0.9 mMol/L 0.5 - 2.2 09/13 Normal MH Lvl [facility] CHEMISTRY Trig 82 mg/dL 0 - 200 09/13 Normal [facility] CHEMISTRY AST 35 U/L 0 - 37 09/13 Normal [facility] CHEMISTRY Bili Total 0.6 mg/dL 0.2 - 1.3 09/13 Normal [facility] CHEMISTRY B/C Ratio 13 6 - 25 09/13 Normal [facility] CHEMISTRY A/G Ratio 1.3 0.7 - 1.6 09/13 Normal [facility] CHEMISTRY Globulin 2.3 g/dL 2.0 - 4.0 09/13 Normal [facility] CHEMISTRY Albumin Lvl 3.0 g/dL 3.5 - 5.0 09/13 LOW [facility] CHEMISTRY Total 5.3 g/dL 6.4 - 8.4 09/13 LOW Protein [facility] CHEMISTRY Alk Phos 54 U/L 39 - 136 09/13 Normal [facility] CHEMISTRY ALT 8 U/L 0 - 65 09/13 Normal [facility] IMMUNOLOGY Prealbumin 8.1 mg/dL 18.0 - 09/13 LOW MH 45.0 [facility] HEMATOLOGY Heprn Negative Negative 09/12 Normal Ab(KAITY) [facility] (09/13/2011 13:00:00) HEMATOLOGY Pos CO Value 0.403 09/12 NA [facility] HEMATOLOGY Pat Od Value 0.058 09/12 NA [facility] CHEMISTRY FiO2 Art 60.0 09/12 [facility] CHEMISTRY Ca Norm mgdL 3.40 mg/dL 4.65 - 09/12 CRIT MH . [facility] CHEMISTRY Ca Ion 0.87 1.16 - 09/12 CRIT 11Result MH mMol/L 06.27 Comment: [facility] Critical Result(s) called to [facility] at 09/12/2011 21:02 by tp. Read back OK. CHEMISTRY Ca Norm 0.85 1.16 - 09/12 CRIT MH mMol/L 06.27 [facility] CHEMISTRY Ca Ion mgdL 3.48 mg/dL 4.65 - 09/12 CRIT MH . [facility] CHEMISTRY Allens Art N/A 09/11 Normal [facility] (09/12/2011 06:03:00) CHEMISTRY Rate Art 12 09/11 NA [facility] CHEMISTRY Vt Art 500 09/11 NA [facility] CHEMISTRY PEEP Art 5.0 09/11 NA [facility] HEMATOLOGY Elliptocyte Slight None Seen 09/11 ABN [facility] *ABN* (09/12/2011 04:00:00) HEMATOLOGY Plt Morph Normal 09/11 Normal [facility] (09/12/2011 04:00:00) CHEMISTRY Rate Art 10 09/10 NA [facility] BLOOD BANK RBC product Product available 09/10 Normal [facility] (09/11/2011 15:35:00) CHEMISTRY U Potassium 50.7 meq/L 09/10 NA 17Interpretiv e Data: No [facility] established reference ranges. CHEMISTRY U Sodium 12 meq/L 09/10Interpretiv e Data: No [facility] established reference ranges. CHEMISTRY U Chloride null 09/10 NA [facility] URINALYSIS UA null 0.1 - 1.0 09/10 [place] [facility] URINALYSIS UA [place] 6 /LPF 09/10 NA [facility] URINALYSIS Micro? Performed 09/10 NA [facility] *NA* (09/11/2011 13:30:00) URINALYSIS UA Bili Negative Negative 09/10 [facility] *NA* (09/11/2011 13:30:00) URINALYSIS UA Ketones 10 mg/dL Negative 09/10 [facility] *ABN* (09/11/2011 13:30:00) URINALYSIS UA Glucose 30 mg/dL Negative 09/10 [facility] *ABN* (09/11/2011 13:30:00) URINALYSIS UA Protein 70 mg/dL Negative 09/10 [facility] *ABN* (09/11/2011 13:30:00) URINALYSIS UA Blood Moderate Negative 09/10 [facility] *ABN* (09/11/2011 13:30:00) URINALYSIS UA [place] Yeast Many /HPF None Seen 09/10 [facility] *ABN* (09/11/2011 13:30:00) URINALYSIS UA Mucus Few /LPF None Seen 09/10 NA [facility] *NA* (09/11/2011 13:30:00) URINALYSIS UA Leuk Est Moderate Negative 09/10 ABN [facility] *ABN* (09/11/2011 13:30:00) URINALYSIS UA Nitrite Negative Negative 09/10 Normal [facility] (09/11/2011 13:30:00) URINALYSIS UA Sq Epi Many /LPF Few 09/10 ABN [facility] *ABN* (09/11/2011 13:30:00) URINALYSIS UA WBC 17 /HPF 0 - 5 09/10 [place] [facility] URINALYSIS UA RBC 142 /HPF 0 - 2 09/10 [place] [facility] URINALYSIS UA Hyal Cast 6 /LPF 0 - 2 09/10 [place] [facility] URINALYSIS UA Bacteria Occasional /HPF None Seen 09/10 NA [facility] *NA* (09/11/2011 13:30:00) URINALYSIS UA Color Yellow Yellow 09/10 NA [facility] *NA* (09/11/2011 13:30:00) URINALYSIS UA Spec Grav 1.038 <=1.030 09/10 [place] [facility] URINALYSIS UA Turbidity Marked Clear 09/10 [facility] *ABN* (09/11/2011 13:30:00) URINALYSIS UA pH 5.0 5.0 - 8.0 09/10 Normal [facility] Microbiolo Culture: 09/10 gy [facility] CHEMISTRY Flow Art 6 09/10 NA [facility] CHEMISTRY TSH 1.450 0.360 - 09/10 Normal uIU/mL 3.740 [facility] CHEMISTRY Cortisol 15.3 ug/dl 3.0 - 23.0 09/10 Normal 15Interpretiv e Data: CORD [facility] BLOOD: 5 - 17 ug/dLPREMATUR E INFANTS:26-28 weeks, day 4 1 - 11 ug/dL31-35 weeks, day 4 2.5 - 9.1 ug/dLFULL TERM INFANTS:3 days 1.7 - 14 ug/dL1-7 days 2 - 11 ug/dL1-12 months 2.8 - 23 ug/dLCHILDREN (1 - 16 years) 3 - 21 ug/dLADULT RANGE:8AM 6.0 - 23.0 ug/dL4PM 3.0 - 16.0 ug/dL BACTERIAL MRSA by PCR Negative 1 09/10 Normal 1Interpretive - Data: [facility] (09/11/2011 10:05:00) INTERPRETATIO N: Negative..... .No MRSA DNA detected by PCR Positive..... .MRSA DNA detected by PCRASSAY LIMITATIONS:T his is a screening test for colonization by MRSA. A positive test result indicates the patient is colonized by MRSA, but does not necessarily mean that an infection is present or that treatment is necessary. Likewise, a negative test does not exclude colonization or infection. Patients should be evaluatedclin ically for symptoms and signs of infection before making therapeutic decisions. Routine decolonizatio n is discouraged and should only be considered for select patients after consultation with an infectious diseases specialist. CHEMISTRY Flow Art 2.0 09/10 NA [facility] BLOOD BANK RBC product Product available 09/10 Normal RESULTS [facility] (09/11/2011 08:26:00) CHEMISTRY AST 46 U/L 0 - 37 09/10 [place] MH [facility] CHEMISTRY Bili Total 0.7 mg/dL 0.2 - 1.3 09/10 Normal [facility] CHEMISTRY Globulin 2.0 g/dL 2.0 - 4.0 09/10 Normal [facility] CHEMISTRY A/G Ratio 1.6 0.7 - 1.6 09/10 Normal [facility] CHEMISTRY Alk Phos 40 U/L 39 - 136 09/10 Normal [facility] CHEMISTRY ALT 12 U/L 0 - 65 09/10 Normal [facility] CHEMISTRY Albumin Lvl 3.1 g/dL 3.5 - 5.0 09/10 LOW [facility] CHEMISTRY Total 5.1 g/dL 6.4 - 8.4 09/10 LOW [facility] CHEMISTRY B/C Ratio 7 6 - 25 09/10 Normal [facility] CHEMISTRY Lactic Acid 1.6 mMol/L 0.5 - 2.2 09/10 Normal Lvl [facility] HEMATOLOGY Polychrom Slight None Seen 09/10 Normal [facility] (09/11/2011 06:30:00) HEMATOLOGY Baso Slight None Seen 09/10 ABN [place] [facility] *ABN* (09/11/2011 06:30:00) HEMATOLOGY Hypochrom Slight None Seen 09/10 Normal [facility] (09/11/2011 06:30:00) HEMATOLOGY Plt Morph Normal 09/10 Normal [facility] (09/11/2011 06:30:00) Microbiolo Culture: 09/10 [facility] Blood [facility] Microbiolo Culture: 09/10 gy Blood [facility] BLOOD BANK ABO/Rh O POS 09/10 Unknown RESULTS [facility] BLOOD BANK Antibody Negative 09/10 Normal RESULTS Scr [facility] (09/11/2011 00:10:00) Vital Signs Vital Sign Value Date Comments Source Systolic (mm Hg) 135 01/04/2016 [facility] Diastolic (mm Hg) 84 01/04/2016 [facility] Respitory Rate 18 01/04/2016 [facility] Heart Rate 84 01/04/2016 [facility] Temperature Oral (F) 98.5 F 01/04/2016 [facility] Systolic (mm Hg) 135 01/04/2016 [facility] Diastolic (mm Hg) 74 01/04/2016 [facility] Respitory Rate 16 01/04/2016 [facility] Temperature Oral (F) 98.3 F 01/04/2016 [facility] Heart Rate 78 01/04/2016 [facility] Systolic (mm Hg) 128 01/04/2016 [facility] Diastolic (mm Hg) 71 01/04/2016 [facility] Temperature Oral (F) 98.6 F 01/04/2016 [facility] Respitory Rate 18 01/04/2016 [facility] Heart Rate 77 01/04/2016 [facility] BMI Calculated 45.48 01/03/2016 [facility] Weight 105.625 01/03/2016 [facility] Height 152.4 cm 01/03/2016 [facility] Heart Rate 69 06/20/2013 [facility] Respitory Rate 18 06/20/2013 [facility] Diastolic (mm Hg) 75 06/20/2013 [facility] Systolic (mm Hg) 144 06/20/2013 [facility] Heart Rate 73 06/20/2013 [facility] Temperature Oral (F) 98.1 F 06/20/2013 [facility] Respitory Rate 18 06/20/2013 [facility] Systolic (mm Hg) 124 06/20/2013 [facility] Diastolic (mm Hg) 73 06/20/2013 [facility] Systolic (mm Hg) 144 06/19/2013 [facility] Respitory Rate 18 06/19/2013 [facility] Temperature Oral (F) 98.1 F 06/19/2013 [facility] Diastolic (mm Hg) 66 06/19/2013 [facility] Heart Rate 74 06/19/2013 [facility] Temperature Oral (F) 98.3 F 06/19/2013 [facility] Height 152.4 cm 06/14/2013 [facility] Weight 105.455 06/14/2013 [facility] Weight 105.455 06/14/2013 [facility] Height 152.4 cm 06/14/2013 [facility] Temperature Oral (F) 98.5 F 06/13/2013 [facility] Heart Rate 71 06/13/2013 [facility] Respitory Rate 18 06/13/2013 [facility] Systolic (mm Hg) 126 06/13/2013 [facility] Diastolic (mm Hg) 65 06/13/2013 [facility] Temperature Oral (F) 97.8 F 06/13/2013 [facility] Systolic (mm Hg) 127 06/13/2013 [facility] Diastolic (mm Hg) 61 06/13/2013 [facility] Respitory Rate 20 06/13/2013 [facility] Heart Rate 67 06/13/2013 [facility] Diastolic (mm Hg) 72 06/13/2013 [facility] Systolic (mm Hg) 127 06/13/2013 [facility] Respitory Rate 20 06/13/2013 [facility] Temperature Oral (F) 97.5 F 06/13/2013 [facility] Heart Rate 71 06/13/2013 [facility] Height 152.4 cm 06/06/2013 [facility] Weight 105.455 05/31/2013 [facility] Height 152.4 cm 05/31/2013 [facility] Weight 105.455 05/31/2013 [facility] Diastolic (mm Hg) 83 09/21/2011 [facility] Systolic (mm Hg) 146 09/21/2011 [facility] Respitory Rate 18 09/21/2011 [facility] Heart Rate 70 09/21/2011 [facility] Respitory Rate 18 09/21/2011 [facility] Diastolic (mm Hg) 85 09/21/2011 [facility] Systolic (mm Hg) 143 09/21/2011 [facility] Heart Rate 69 09/21/2011 [facility] Respitory Rate 18 09/21/2011 [facility] Systolic (mm Hg) 140 09/21/2011 [facility] Heart Rate 79 09/21/2011 [facility] Diastolic (mm Hg) 71 09/21/2011 [facility] Temperature Oral (F) 98.0 F 09/21/2011 [facility] Temperature Oral (F) 98.1 F 09/21/2011 [facility] Temperature Oral (F) 98.1 F 09/20/2011 [facility] Weight 117.800 09/06/2011 [facility] Height 152.40 cm 09/06/2011 [facility] Encounters Location Location Encounter Encounter Reason Attending ADM DC Status Source Details Type Number For Provider Date Date Visit Inpatient [id number] INCISION CYNDI 09/08 09/20 Active [id number] In[facility] [id number] ABDOMINA SURAINDER 05/31 06/13 Active [facility] 2 L [id number] DECONDIT CYNDI 06/13 06/20 Active [facility] 2 IONED ANIGBOGU /2013 [facility] Observation [id number] Valente 01/03 01/03 Javier 0 Daeuri /2015 [facility] Outpatient [id number] 789.06 CYNDI Cancel [facility] 0 87.01 JOSE CRUZ tran Procedures Procedure Code Date Perfomer Comments Source Appendectomy [id number] [facility] Hernia repair [id number] [facility] Appendectomy [id number] [facility] Hernia repair [id number] [facility]
--- OUTSIDE RECORDS SUMMARY | 2018-01-01 12:36 | XMS REPORT | CCD ---
:1950 Author Organization [facility] Care Team Providers Name Role Phone Giovanny Stokes Referring Provider Allergies, Adverse Reactions, Alerts Substance Reaction Status Demerol HCl Active NKFA Active Problem List Condition Effective Dates Status [D]Abdominal pain 09/10/2011 Active AF - Atrial fibrillation 09/14/2011 Active Central line insertion 09/11/2011 Active Cholecystectomy Active Cholecystectomy Active Endotracheal intubation 09/11/2011 Active Gastric stapling Active Hernia repair 09/09/2011 Active HTN - Hypertension Active Idiopathic hypotension Active Low blood pressure 09/10/2011 Active Lysis of adhesions 09/09/2011 Active Panniculectomy 09/09/2011 Active PUD - Peptic ulcer disease Active Recurrent ventral hernia 09/09/2011 Active Medications Medication Instructions Start Date End Date Status Cardizem 10 mg, 2 mL, Route: IV, 09/14/2011 09/14/2011 Completed Drug form: INJ, ONCE, Start date: 09/14/11 9:09:00, Stop date: 09/14/11 9:09:00 vancomycin 1 gm, Route: IVPB, 09/16/2011 09/18/2011 Discontinued [id number], Start date: 09/16/11 14:00:00, Duration: 30 day, Stop date: 10/14/11 14:00:00 Lanoxin 0.5 mg, 2 mL, Route: IV, 09/14/2011 09/14/2011 Completed Drug form: INJ, ONCE, Start date: 09/14/11 9:08:00, Stop date: 09/14/11 9:08:00 vancomycin 1 gm, Route: IVPB, 09/19/2011 09/21/2011 Discontinued [id number], Start date: 09/19/11 14:00:00, Duration: 30 day, Stop date: 10/18/11 14:00:00 Zofran 4 mg, Route: IV, ONCE, 09/09/2011 09/09/2011 Completed Start date: 09/09/11 16:56:00, Stop date: 09/09/11 16:56:00 Zofran 4 mg, Route: IV, ONCE, 09/09/2011 09/09/2011 Completed Start date: 09/09/11 16:56:00, Stop date: 09/09/11 16:56:00 hydromorphone 0.2 mg, Route: IV, ONCE, 09/09/2011 09/09/2011 Completed Start date: 09/09/11 16:55:00, Stop date: 09/09/11 16:55:00 hydromorphone 0.2 mg, Route: IV, ONCE, 09/09/2011 09/09/2011 Completed Start date: 09/09/11 16:55:00, Stop date: 09/09/11 16:55:00 MiraLax 17 gm, 1 pkt, Route: NG, 09/14/2011 09/21/2011 Discontinued Drug form: PWDR, Daily, Start date: 09/14/11 18:00:00, Duration: 30 day, Stop date: 10/14/11 9:00:00 cefazolin 2 gm, 100 mL, Route: 09/09/2011 09/10/2011 Completed IVPB, Drug form: INJ, ABXQ8H, Start date: 09/09/11 20:00:00, Stop date: 09/10/11 16:10:00 acetaminophen-hydrocodone 1 tab, Route: PO, Drug 09/18/2011 09/21/2011 Discontinued 325 mg-5 mg oral tablet Form: TAB, Q4H, PRN Pain, Start date: 09/18/11 21:34:00, Duration: 30 day, Stop date: 10/18/11 21:33:00 Lopressor 25 mg, 1 tab, Route: PO, 09/10/2011 09/11/2011 Discontinued Drug form: TAB, Daily, Start date: 09/10/11 9:00:00, Duration: 30 day, Stop date: 10/09/11 9:00:00 Xopenex 0.63 mg, 3 mL, Route: 09/14/2011 09/18/2011 Discontinued NEB, Drug form: SOLN, RQ4H, Start date: 09/14/11 11:00:00, Duration: 30 day, Stop date: 10/14/11 7:00:00 glucagon 1 mg, Route: IV, Drug 09/12/2011 09/16/2011 Discontinued form: PDR/INJ, PRN, PRN Blood Glucose Results, Start date: 09/12/11 0:19:00, Duration: 30 day, Stop date: 10/12/11 0:18:00 Dextrose 50% in Water IV 50 mL, Route: IVP, Start 09/12/2011 09/16/2011 Discontinued date: 09/12/11 0:19:00, Duration: 30 day, Stop date: 10/12/11 0:18:00, PRN Blood Glucose Results NovoLog FlexPen 6 unit, 0.06 mL, Route: 09/12/2011 09/16/2011 Discontinued SUB-Q, Drug form: SOLN, Sliding Scale, PRN Blood Glucose Results, Start date: 09/12/11 0:19:00, Stop date: 10/12/11 0:18:00 NovoLog FlexPen 8 unit, 0.08 mL, Route: 09/12/2011 09/16/2011 Discontinued SUB-Q, Drug form: SOLN, Sliding Scale, PRN Blood Glucose Results, Start date: 09/12/11 0:19:00, Duration: 30 day, Stop date: 10/12/11 0:18:00 NovoLog FlexPen 10 unit, 0.1 mL, Route: 09/12/2011 09/16/2011 Discontinued SUB-Q, Drug form: SOLN, Sliding Scale, PRN Blood Glucose Results, Start date: 09/12/11 0:19:00, Duration: 30 day, Stop date: 10/12/11 0:18:00 NovoLog FlexPen 7 unit, 0.07 mL, Route: 09/12/2011 09/16/2011 Discontinued SUB-Q, Drug form: SOLN, Sliding Scale, PRN Blood Glucose Results, Start date: 09/12/11 0:19:00, Stop date: 10/12/11 0:18:00 NovoLog FlexPen 5 unit, 0.05 mL, Route: 09/12/2011 09/16/2011 Discontinued SUB-Q, Drug form: SOLN, Sliding Scale, PRN Blood Glucose Results, Start date: 09/12/11 0:19:00, Stop date: 10/12/11 0:18:00 potassium phosphate 20 mmol, 6.67 mL, Route: 09/14/2011 09/14/2011 Completed IV, ONCE, Start date: 09/14/11 18:00:00, Stop date: 09/14/11 18:00:00 Dextrose 5% with 0.45% 1,000 mL, Rate: 250 09/09/2011 09/10/2011 Completed NaCl IV 1,000 mL ml/hr, Infuse over: 4 hr, Route: IV, Dosing Weight 117.8 kg, Total Volume: 1,000, Start date: 09/09/11 19:03:00, Duration: 4 hr, Stop date: 09/10/11 17:58:00 parenteral nutrition 1,680 mL, Rate: 70 09/13/2011 09/14/2011 Discontinued solution w/electrolytes ml/hr, Infuse over: 24 1,680 mL hr, Route: IV, Dosing Weight 117.8 kg, Total Volume: 1,680, Start date: 09/13/11 21:00:00, Duration: 30 day, Stop date: 10/13/11 20:59:00 Dulcolax Laxative 20 mg, 2 supp, Route: 09/14/2011 09/21/2011 Discontinued [place], Drug form: SUPP, Q48H, PRN Constipation, Start date: 09/14/11 16:56:00, Duration: 30 day, Stop date: 10/14/11 16:55:00 Dulcolax Laxative 20 mg, 2 supp, Route: 09/14/2011 09/14/2011 Completed [place], Drug form: SUPP, ONCE, Start date: 09/14/11 17:15:00, Stop date: 09/14/11 17:15:00 Sodium Chloride 0.9% IV IV, 500 ml/hr, ONCALL, 09/10/2011 09/12/2011 Completed Start date: 09/10/11 15:00:00, Duration: 30, 500 ml calcium gluconate 1,000 mg, 10 mL, Route: 09/12/2011 09/12/2011 Completed IV, Drug form: INJ, ONCE, Start date: 09/12/11 11:00:00, Stop date: 09/12/11 11:00:00 Lovenox 40 mg, 0.4 mL, Route: 09/20/2011 09/20/2011 Discontinued SUB-Q, Drug form: INJ, Q12H, Start date: 09/20/11 0:00:00, Duration: 30 day, Stop date: 10/19/11 12:00:00 hetastarch 6% in NS 500 mL, 500 ml/hr, 09/10/2011 09/10/2011 Completed Route: IV, Drug Form: INJ, ONCE, Start date: 09/10/11 14:00:00, Stop date: 09/10/11 14:00:00 Protonix 40 mg, Route: IVP, Drug 09/10/2011 09/16/2011 Discontinued form: INJ, Before Dinner, Start date: 09/10/11 16:30:00, Duration: 30 day, Stop date: 10/09/11 16:30:00 Dextrose 5% with 0.45% 1,000 mL, Rate: 250 09/10/2011 09/11/2011 Discontinued NaCl IV 1,000 mL ml/hr, Infuse over: 4 hr, Route: IV, Dosing Weight 117.8 kg, Total Volume: 1,000, Start date: 09/10/11 18:00:00, Stop date: 10/10/11 17:59:00 ipratropium 0.02% 0.5 mg, 2.5 mL, Route: 09/14/2011 09/18/2011 Discontinued inhalation solution NEB, Drug form: SOLN, RQ4H, Start date: 09/14/11 11:00:00, Duration: 30 day, Stop date: 10/14/11 7:00:00 DuoNeb inhalation solution 3 mL, Route: NEB, Drug 09/12/2011 09/14/2011 Discontinued Form: SOLN, RQ4H, Start date: 09/12/11 11:00:00, Duration: 30 day, Stop date: 10/12/11 7:00:00 Sublimaze 25 microgram, 0.5 mL, 09/15/2011 09/16/2011 Discontinued Route: IV, Drug form: INJ, Q2H, PRN Pain, Start date: 09/15/11 20:40:00, Duration: 30 day, Stop date: 10/15/11 20:39:00 Ativan 1 mg, 0.5 mL, Route: IV, 09/10/2011 09/16/2011 Discontinued Drug form: INJ, Q6H, PRN Anxiety, Start date: 09/10/11 11:49:00, Duration: 30 day, Stop date: 10/10/11 11:48:00 Azactam 1 gm, Route: IVPB, 09/21/2011 09/21/2011 Discontinued [id number], Start date: 09/21/11 14:00:00, Duration: 30 day, Stop date: 10/21/11 6:00:00 vancomycin 1 gm, Route: IVPB, ONCE, 09/14/2011 09/14/2011 Completed Start date: 09/14/11 11:30:00, Stop date: 09/14/11 11:30:00 Trandate 5 mg, 1 mL, Route: IV, 09/14/2011 09/14/2011 Completed Drug form: INJ, ONCE, Start date: 09/14/11 10:00:00, Stop date: 09/14/11 10:00:00 Lasix 20 mg, 2 mL, Route: IV, 09/11/2011 09/11/2011 Completed Drug form: INJ, ONCE, Start date: 09/11/11 16:38:00, Stop date: 09/11/11 16:38:00 Reglan 5 mg, 1 tab, Route: PO, 09/16/2011 09/21/2011 Discontinued Drug form: TAB, TID-Before Meals, Start date: 09/16/11 13:21:00, Duration: 30 day, Stop date: 10/16/11 11:30:00 albumin human 25 gm, 500 mL, Route: 09/11/2011 09/12/2011 Completed IV, Drug form: INJ, ONCE, Start date: 09/11/11 9:40:00, Stop date: 09/11/11 9:40:00 influenza virus vaccine, 0.5 mL, Route: IM, Drug 09/09/2011 09/15/2011 Completed inactivated Form: INJ, ONCALL, Start date: 09/09/11 20:52:24, Stop date: 10/09/11 20:47:24 Lasix 20 mg, 1 tab, Route: PO, 09/19/2011 09/21/2011 Discontinued Drug form: TAB, Daily, Start date: 09/19/11 17:45:00, Duration: 30 day, Stop date: 10/19/11 9:00:00 Lovenox 30 mg, 0.3 mL, Route: 09/16/2011 09/17/2011 Discontinued SUB-Q, Drug form: INJ, QNoon, Start date: 09/16/11 12:00:00, Duration: 30 day, Stop date: 10/15/11 12:00:00 Protonix 40 mg, 1 tab, Route: PO, 09/16/2011 09/21/2011 Discontinued Drug form: ECTAB, Before Dinner, Start date: 09/16/11 16:30:00, Duration: 30 day, Stop date: 10/15/11 16:30:00 Lasix 40 mg, 4 mL, Route: IV, 09/16/2011 09/16/2011 Completed Drug form: INJ, ONCE, Start date: 09/16/11 10:30:00, Stop date: 09/16/11 10:30:00 albumin human 25 gm, 100 mL, Route: 09/11/2011 09/11/2011 Completed IV, Drug form: INJ, ONCE, Start date: 09/11/11 16:46:00, Stop date: 09/11/11 16:46:00 chlorhexidine topical 15 mL, Route: S&SPIT, 09/12/2011 09/15/2011 Discontinued 0.12% liquid Q6H, Drug form: LIQ, Start date: 09/12/11 6:00:00, Duration: 30 day, Stop date: 10/12/11 0:00:00 AMIODarone 900 mg + 482 mL, Rate: TITRATE, 09/14/2011 09/14/2011 Completed Dextrose 5% in Water IV Route: IV, Dosing Weight 482 mL 117.8 kg, Total Volume: 500, Start date: 09/14/11 9:55:00, Duration: 1 doses or times, Stop date: 09/15/11 9:54:00 vancomycin 1 gm, Route: IVPB, ONCE, 09/11/2011 09/11/2011 Completed Start date: 09/11/11 5:30:00, Stop date: 09/11/11 5:30:00 Merrem 500 mg, Route: IVPB, 09/11/2011 09/17/2011 Completed ABXQ8H, Start date: 09/11/11 6:00:00, Duration: 1 day, Stop date: 09/17/11 6:00:00 Lovenox 40 mg, 0.4 mL, Route: 09/20/2011 09/19/2011 Discontinued SUB-Q, Drug form: INJ, [id number], Start date: 09/20/11 4:00:00, Duration: 30 day, Stop date: 10/19/11 4:00:00 Cordarone 150 mg, 3 mL, Route: 09/14/2011 09/14/2011 Completed IVPB, Drug form: INJ, ONCE, Start date: 09/14/11 9:13:00, Stop date: 09/14/11 9:13:00 acetylcysteine 400 mg, 2 mL, Route: 09/15/2011 09/18/2011 Discontinued NEB, Drug Form: SOLN, RQ8H, Start date: 09/15/11 23:00:00, Duration: 30 day, Stop date: 10/15/11 15:00:00 Ambien 5 mg, 1 tab, Route: PO, 09/16/2011 09/21/2011 Discontinued Drug form: TAB, Bedtime, PRN Insomnia, Start date: 09/16/11 22:02:00, Duration: 30 day, Stop date: 10/16/11 22:01:00 hetastarch 6% in NS 500 mL IV, Start date: 09/11/11 09/11/2011 09/11/2011 Completed 5:30:00, Duration: 1, 500 ml Zofran 4 mg, 2 mL, Route: IVP, 09/10/2011 09/21/2011 Discontinued Drug form: INJ, Q4H, PRN Nausea, Start date: 09/10/11 1:40:00, Duration: 30 day, Stop date: 10/10/11 1:39:00 cefazolin 1 gm, Route: IVPB, 09/11/2011 09/12/2011 Discontinued [id number], Start date: 09/11/11 10:00:00, Duration: 30 day, Stop date: 10/11/11 2:00:00 Lasix 40 mg, 4 mL, Route: IV, 09/15/2011 09/15/2011 Completed Drug form: INJ, ONCE, Start date: 09/15/11 17:28:00, Stop date: 09/15/11 17:28:00 calcium chloride 1,000 mg, 10 mL, Route: 09/12/2011 09/12/2011 Completed IV, Drug form: INJ, ONCE, Start date: 09/12/11 22:00:00, Stop date: 09/12/11 22:00:00 Cardizem 10 mg, 2 mL, Route: IV, 09/14/2011 09/14/2011 Completed Drug form: INJ, ONCE, Start date: 09/14/11 9:12:00, Stop date: 09/14/11 9:12:00 hydromorphone 6 mg 30 mL, Rate: asdir, 09/10/2011 09/12/2011 Discontinued Route: IV, Dosing Weight 117.8 kg, Total Volume: 30, Start date: 09/10/11 20:50:00, Duration: 30 day, Stop date: 10/10/11 20:49:00 Nephro-Idania Rx 1 tab, Route: PO, Drug 09/16/2011 09/21/2011 Discontinued Form: TAB, BID, Start date: 09/16/11 17:00:00, Duration: 30 day, Stop date: 10/16/11 9:00:00 Pulmicort Respules 1 mg, 4 mL, Route: NEB, 09/15/2011 09/19/2011 Discontinued Drug form: SOLN, RQ12H, Start date: 09/15/11 17:27:00, Duration: 30 day, Stop date: 10/15/11 16:00:00 Levothroid 0.05 mg, 1 tab, Route: 09/16/2011 09/21/2011 Discontinued PO, Drug form: TAB, [id number], Start date: 09/16/11 13:18:00, Duration: 30 day, Stop date: 10/16/11 6:30:00 Haldol 5 mg, 1 mL, Route: IV, 09/11/2011 09/21/2011 Discontinued Drug form: INJ, Q4H, PRN Agitation, Start date: 09/11/11 9:39:00, Duration: 30 day, Stop date: 10/11/11 9:38:00 K-Dur 20 40 mEq, 2 tab, Route: 09/19/2011 09/21/2011 Discontinued PO, Drug form: ERTAB, BID, Start date: 09/19/11 17:43:00, Duration: 30 day, Stop date: 10/19/11 17:00:00 potassium chloride 20 mEq, 100 mL, Route: 09/14/2011 09/14/2011 Completed IVPB, Drug form: INJ, ONCE, Start date: 09/14/11 9:30:00, Stop date: 09/14/11 9:30:00 calcium gluconate 1,000 mg, 10 mL, Route: 09/12/2011 09/12/2011 Completed IVPB, ONCE, Start date: 09/12/11 7:00:00, Stop date: 09/12/11 7:00:00 Xopenex 0.63 mg, 3 mL, Route: 09/18/2011 09/21/2011 Discontinued NEB, Drug form: SOLN, RTID, PRN See Respiratory Notes, Start date: 09/18/11 15:36:00, Duration: 30 day, Stop date: 10/18/11 15:35:00 Sodium Chloride 0.9% IV 1,000 mL, Rate: 100 09/11/2011 09/12/2011 Discontinued 1,000 mL ml/hr, Infuse over: 10 hr, Route: IV, Dosing Weight 117.8 kg, Total Volume: 1,000, Start date: 09/11/11 9:38:00, Stop date: 10/11/11 9:37:00 calcium gluconate 2,000 mg, 20 mL, Route: 09/11/2011 09/11/2011 Completed IV, ONCE, Start date: 09/11/11 10:00:00, Stop date: 09/11/11 10:00:00 Levaquin 500 mg, 1 tab, Route: 09/17/2011 09/18/2011 Discontinued PO, Drug form: TAB, [id number], Start date: 09/17/11 15:00:00, Duration: 30 day, Stop date: 10/16/11 15:00:00 Dilaudid 1 mg, 0.5 mL, Route: IV, 09/16/2011 09/18/2011 Discontinued Drug form: INJ, Q4H, PRN Pain, Start date: 09/16/11 13:27:00, Duration: 30 day, Stop date: 10/16/11 13:26:00 ipratropium 0.02% 0.5 mg, 2.5 mL, Route: 09/18/2011 09/21/2011 Discontinued inhalation solution NEB, Drug form: SOLN, RTID, PRN See Nurse's Notes, Start date: 09/18/11 15:35:00, Duration: 30 day, Stop date: 10/18/11 15:34:00 Lasix 20 mg, 2 mL, Route: IV, 09/10/2011 09/11/2011 Completed Drug form: INJ, ONCE, Start date: 09/10/11 21:09:00, Stop date: 09/10/11 21:09:00 fentanyl 0.6 mg IV, Start date: 09/12/11 09/12/2011 09/16/2011 Discontinued 0:54:00, Duration: 30, 30 ml albumin human 12.5 gm, 250 mL, Route: 09/11/2011 09/11/2011 Completed IV, Drug form: INJ, ONCE, Start date: 09/11/11 5:32:00, Stop date: 09/11/11 5:32:00 Xopenex 0.63 mg, 3 mL, Route: 09/18/2011 09/21/2011 Discontinued NEB, Drug form: SOLN, RTID, Start date: 09/18/11 20:00:00, Duration: 30 day, Stop date: 10/18/11 14:00:00 Phenergan 12.5 mg, Route: IM, 09/09/2011 09/09/2011 Completed ONCE, Start date: 09/09/11 17:07:00, Stop date: 09/09/11 17:07:00 ipratropium 0.02% 0.5 mg, 2.5 mL, Route: 09/18/2011 09/21/2011 Discontinued inhalation solution NEB, Drug form: SOLN, RTID, Start date: 09/18/11 20:00:00, Duration: 30 day, Stop date: 10/18/11 14:00:00 Benadryl 25 mg, 1 cap, Route: PO, 09/19/2011 09/21/2011 Discontinued Drug form: CAP, Q6H, PRN See Nurse's Notes, Start date: 09/19/11 9:39:00, Duration: 30 day, Stop date: 10/19/11 9:38:00 Trandate 5 mg, 1 mL, Route: IV, 09/14/2011 09/14/2011 Completed Drug form: INJ, ONCE, Start date: 09/14/11 15:00:00, Stop date: 09/14/11 15:00:00 sodium bicarbonate 8.4% 100 mEq, 100 mL, Route: 09/11/2011 09/11/2011 Completed IV, Drug Form: INJ, ONCE, Start date: 09/11/11 14:00:00, Stop date: 09/11/11 14:00:00 ferrous sulfate 325 mg, 1 tab, Route: 09/17/2011 09/21/2011 Discontinued PO, Drug form: TAB, BID-Meals, Start date: 09/17/11 17:00:00, Duration: 30 day, Stop date: 10/17/11 8:00:00 Pepcid 20 mg, 2 mL, Route: IVP, 09/11/2011 09/12/2011 Discontinued Drug form: INJ, Daily, Start date: 09/11/11 9:00:00, Duration: 30 day, Stop date: 10/10/11 9:00:00 Diflucan 200 mg, 100 mL, Route: 09/12/2011 09/14/2011 Completed IVPB, Drug form: INJ, [id number], Start date: 09/12/11 11:00:00, Duration: 3 day, Stop date: 09/14/11 11:00:00 Lovenox 40 mg, 0.4 mL, Route: 09/17/2011 09/19/2011 Discontinued SUB-Q, Drug form: INJ, [id number], Start date: 09/17/11 16:00:00, Duration: 30 day, Stop date: 10/16/11 12:00:00 vancomycin 1 gm, Route: IVPB, 09/13/2011 09/14/2011 Completed ONCALL, Start date: 09/13/11 17:00:00, Stop date: 09/13/11 23:00:00 levofloxacin 750 mg, 1 tab, Route: 09/19/2011 09/21/2011 Discontinued PO, Drug form: TAB, Q24H, Start date: 09/19/11 14:00:00, Duration: 30 day, Stop date: 10/18/11 14:00:00 nystatin-triamcinolone 1 appl, Route: TOP, BID, 09/20/2011 09/21/2011 Discontinued topical cream Drug form: CRM, Start date: 09/20/11 9:00:00, Duration: 30 day, Stop date: 10/19/11 17:00:00 Sodium Chloride 0.9% IV 250 mL, Route: IVPB, 09/12/2011 09/21/2011 Discontinued Start date: 09/12/11 18:05:00, Duration: 30 day, Stop date: 10/12/11 18:04:00, PRN Line Flush BD Normal Saline Flush 10 mL, Route: IVP, Drug 09/12/2011 09/21/2011 Discontinued Form: INJ, PRN, PRN Line Flush, Start date: 09/12/11 18:05:00, Duration: 30 day, Stop date: 10/12/11 18:04:00 hydromorphone 0.1 mg, Route: IV, ONCE, 09/09/2011 09/09/2011 Completed Start date: 09/09/11 16:58:00, Stop date: 09/09/11 16:58:00 hydromorphone 0.5 mg, Route: IV, ONCE, 09/09/2011 09/09/2011 Completed Start date: 09/09/11 16:58:00, Stop date: 09/09/11 16:58:00 Lasix 80 mg, 8 mL, Route: IV, 09/11/2011 09/11/2011 Completed Drug form: INJ, ONCE, Start date: 09/11/11 17:14:00, Stop date: 09/11/11 17:14:00 morphine Sulfate 30 mg IV, Start date: 09/09/11 09/09/2011 09/10/2011 Discontinued 19:06:00, 30 ml phytonadione 10 mg, 1 mL, Route: 09/13/2011 09/13/2011 Completed IVPB, Drug form: INJ, ONCE, Start date: 09/13/11 17:00:00, Stop date: 09/13/11 17:00:00 albumin human 25 gm, 100 mL, Route: 09/12/2011 09/15/2011 Completed IV, Drug form: INJ, Q12H, Start date: 09/12/11 20:00:00, Stop date: 09/15/11 0:00:00 Sublimaze 50 microgram, 1 mL, 09/11/2011 09/11/2011 Completed Route: IV, Drug form: INJ, ONCE, Start date: 09/11/11 15:04:00, Stop date: 09/11/11 15:04:00 Sublimaze 50 microgram, 1 mL, 09/11/2011 09/11/2011 Completed Route: IV, Drug form: INJ, ONCE, Start date: 09/11/11 17:41:00, Stop date: 09/11/11 17:41:00 magnesium sulfate 50 mL, Rate: 25 ml/hr, 09/12/2011 09/12/2011 Completed Infuse over: 2 hr, Route: IVPB, Total Volume: 50, Start date: 09/12/11 11:00:00, Stop date: 09/12/11 11:00:00 Sodium Chloride 0.9% IV 1,000 mL, Rate: 100 09/11/2011 09/12/2011 Discontinued 1,000 mL ml/hr, Infuse over: 10 hr, Route: IV, Dosing Weight 117.8 kg, Total Volume: 1,000, Start date: 09/11/11 20:19:00, Duration: 30 day, Stop date: 10/11/11 20:18:00 Diflucan 200 mg, 1 tab, Route: 09/16/2011 09/21/2011 Discontinued PO, Drug form: TAB, [id number], Start date: 09/16/11 14:00:00, Duration: 30 day, Stop date: 10/15/11 14:00:00 diltiazem 100 mg + Sodium 100 mL, Rate: TITRATE, 09/14/2011 09/16/2011 Discontinued Chloride 0.9% IV 100 mL Route: IV, Dosing Weight 117.8 kg, Total Volume: 100, Start date: 09/14/11 9:09:00, Duration: 30 day, Stop date: 10/14/11 9:08:00 Reglan 10 mg, 10 mL, Route: NG, 09/13/2011 09/16/2011 Discontinued Drug form: SYRP, Q8H, Start date: 09/13/11 17:15:00, Duration: 30 day, Stop date: 10/13/11 16:00:00 Lovenox 40 mg, 0.4 mL, Route: 09/10/2011 09/11/2011 Discontinued SUB-Q, Drug form: INJ, Daily, Start date: 09/10/11 9:00:00, Duration: 30 day, Stop date: 10/09/11 9:00:00 Sodium Chloride 0.9% IV 1,000 mL, Rate: 100 09/11/2011 09/13/2011 Completed 1,000 mL ml/hr, Infuse over: 10 hr, Route: IV, Dosing Weight 117.8 kg, Total Volume: 1,000, Start date: 09/11/11 23:33:00, Stop date: 09/13/11 20:59:00 Xenaderm 1 appl, Route: TOP, 09/17/2011 09/21/2011 Discontinued Daily, Drug form: OINT, Start date: 09/17/11 9:00:00, Duration: 30 day, Stop date: 10/16/11 9:00:00 Immunizations Vaccine Date Status influenza virus vaccine, inactivated 09/15/2011 Not Done Vital Signs Most recent to oldest 1 2 3 [Reference Range]: Height 152.40 cm (09/06/2011 10:17:00) Current Weight 123.300 kg 127.000 kg 123.900 kg (09/16/2011 05:44:00) (09/15/2011 06:08:00) (09/12/2011 05:33:00) Temperature Oral 98.0 DegF 98.1 DegF 98.1 DegF [96.4-99.1 DegF] (09/21/2011 04:00:00) (09/21/2011 00:00:00) (09/20/2011 16: 11:00) Systolic Blood Pressure 146 mmHg 143 mmHg 140 mmHg [90-140 mmHg] *HI* *HI* (09/21/2011 04:00:00) (09/21/2011 12:50:00) (09/21/2011 08:57:00) Diastolic Blood Pressure 83 mmHg 85 mmHg 71 mmHg [60-90 mmHg] (09/21/2011 12:50:00) (09/21/2011 08:57:00) (09/21/2011 04:00: 00) Respiratory Rate [14-20 18 BRMIN 18 BRMIN 18 BRMIN BRMIN] (09/21/2011 12:50:00) (09/21/2011 08:57:00) (09/21/2011 04:00:00) Peripheral Pulse Rate 70 bpm 69 bpm 79 bpm [60-100 bpm] (09/21/2011 12:50:00) (09/21/2011 08:57:00) (09/21/2011 04:00: 00) Weight 117.800 kg (09/06/2011 10:17:00) Results BACTERIAL - SEROLOGY Most recent to [Reference Range]: 1 2 3 MRSA by PCR Negative 1 (09/11/2011 10:05:00) 1Interpretive Data: INTERPRETATION: Negative......No MRSA DNA detected by PCR Positive......MRSA DNA detected by PCRASSAY LIMITATIONS:This is a screening test for colonization by MRSA. A positivetest result indicates the patient is colonized by MRSA, but does not necessarily mean that an infection is present or that treatment is necessary. Likewise, a negative test does not exclude colonization or infection. Patients should be evaluatedclinically for symptoms and signs of infection before making therapeutic decisions. Routine decolonization is discouraged and should only be considered forselect patients after consultation with an infectious diseases specialist.BEDSIDE GLUCOSE TESTING Most recent to 1 2 3 [Reference Range]: Gluc POC [place] [70-99 95 mg/dL 2 107 mg/dL 3 97 mg/dL 4 mg/dL] (09/21/2011 11:25:00) *HI* (09/20/2011 21:46:00) (09/21/2011 08:37:00) Comment1 Notify RN/MD Notify RN/MD Notify RN/MD *NA* *NA* *NA* (09/21/2011 11:25:00) (09/21/2011 08:37:00) (09/20/2011 21:46:00) Comment2 Assess Patient Assess Patient Assess Patient *NA* *NA* *NA* (09/21/2011 11:25:00) (09/21/2011 08:37:00) (09/18/2011 11:59:00) 2Interpretive Data: Upper Reportable Limit: 200 mg/dL.3Interpretive Data: Upper Reportable Limit: 200 mg/dL.4Interpretive Data: Upper Reportable Limit: 200 mg/dL.URINALYSIS Most recent to oldest [Reference Range]: 1 2 3 UA Turbidity [Clear] Marked *ABN* (09/11/2011 13:30:00) UA Color [Yellow] Yellow *NA* (09/11/2011 13:30:00) UA pH [5.0-8.0] 5.0 (09/11/2011 13:30:00) UA Spec Grav [<=1.030] 1.038 *HI* (09/11/2011 13:30:00) UA Glucose [Negative mg/dL] 30 mg/dL *ABN* (09/11/2011 13:30:00) UA Blood [Negative] Moderate *ABN* (09/11/2011 13:30:00) UA Ketones [Negative mg/dL] 10 mg/dL *ABN* (09/11/2011 13:30:00) UA Protein [Negative mg/dL] 70 mg/dL *ABN* (09/11/2011 13:30:00) UA Urobilinogen [0.1-1.0 mg/dL] <=1.0 mg/dL *NA* (09/11/2011 13:30:00) UA Bili [Negative] Negative *NA* (09/11/2011 13:30:00) UA Leuk Est [Negative] Moderate *ABN* (09/11/2011 13:30:00) UA Nitrite [Negative] Negative (09/11/2011 13:30:00) UA WBC [0-5 /HPF] 17 /HPF *HI* (09/11/2011 13:30:00) UA RBC [0-2 /HPF] 142 /HPF *HI* (09/11/2011 13:30:00) UA Bacteria [None Seen /HPF] Occasional /HPF *NA* (09/11/2011 13:30:00) UA Sq Epi [Few /LPF] Many /LPF *ABN* (09/11/2011 13:30:00) UA Hyal Cast [0-2 /LPF] 6 /LPF *HI* (09/11/2011 13:30:00) UA Mucus [None Seen /LPF] Few /LPF *NA* (09/11/2011 13:30:00) UA Gran Cast 6 /LPF *NA* (09/11/2011 13:30:00) UA [place] Yeast [None Seen /HPF] Many /HPF *ABN* (09/11/2011 13:30:00) Micro? Performed *NA* (09/11/2011 13:30:00) BLOOD BANK RESULTS Most recent to oldest 1 2 3 [Reference Range]: ABO/Rh O POS O POS *Unknown* *Unknown* (09/14/2011 09:05:00) (09/11/2011 00:10:00) Antibody Scrn Negative Negative (09/14/2011 09:05:00) (09/11/2011 00:10:00) RBC product Product available Product available Product available (09/14/2011 09:07:00) (09/11/2011 15:35:00) (09/11/2011 08:26:00) CHEMISTRY Most recent to oldest 1 2 3 [Reference Range]: Sodium Lvl [135-145 146 mEq/L 146 mEq/L 144 mEq/L mEq/L] *HI* *HI* (09/19/2011 06:00:00) (09/21/2011 06:00:00) (09/20/2011 05:38:00) Potassium Lvl [3.5-5.1 3.9 mEq/L 3.4 mEq/L 3.5 mEq/L mEq/L] (09/21/2011 06:00:00) *LOW* (09/19/2011 06:00:00) (09/20/2011 05:38:00) Chloride Lvl [95-109 110 mEq/L 112 mEq/L 110 mEq/L mEq/L] *HI* *HI* *HI* (09/21/2011 06:00:00) (09/20/2011 05:38:00) (09/19/2011 06:00:00) CO2 [24-32 mEq/L] 24 mEq/L 20 mEq/L 22 mEq/L (09/21/2011 06:00:00) *LOW* *LOW* (09/20/2011 05:38:00) (09/19/2011 06:00:00) AGAP [10.0-20.0 mEq/L] 15.9 mEq/L 17.4 mEq/L 15.5 mEq/L (09/21/2011 06:00:00) (09/20/2011 05:38:00) (09/19/2011 06:00:00) Creatinine Lvl [0.5-1.4 1.2 mg/dL 1.3 mg/dL 1.3 mg/dL mg/dL] (09/21/2011 06:00:00) (09/20/2011 05:38:00) (09/19/2011 06:00:00) BUN [7-22 mg/dL] 19 mg/dL 23 mg/dL 31 mg/dL (09/21/2011 06:00:00) *HI* *HI* (09/20/2011 05:38:00) (09/19/2011 06:00:00) B/C Ratio [6-25] 26 13 7 *HI* (09/14/2011 04:00:00) (09/11/2011 06:30:00) (09/16/2011 03:15:00) Glucose Lvl [70-99 94 mg/dL 5 112 mg/dL 6 90 mg/dL 7 mg/dL] (09/21/2011 06:00:00) *HI* (09/19/2011 06:00:00) (09/20/2011 05:38:00) Total Protein [6.4-8.4 5.8 g/dL 5.3 g/dL 5.1 g/dL g/dL] *LOW* *LOW* *LOW* (09/16/2011 03:15:00) (09/14/2011 04:00:00) (09/11/2011 06:30:00) Albumin Lvl [3.5-5.0 2.8 g/dL 3.0 g/dL 3.1 g/dL g/dL] *LOW* *LOW* *LOW* (09/16/2011 03:15:00) (09/14/2011 04:00:00) (09/11/2011 06:30:00) Globulin [2.0-4.0 g/dL] 3.0 g/dL 2.3 g/dL 2.0 g/dL (09/16/2011 03:15:00) (09/14/2011 04:00:00) (09/11/2011 06:30:00) A/G Ratio [0.7-1.6] 0.9 1.3 1.6 (09/16/2011 03:15:00) (09/14/2011 04:00:00) (09/11/2011 06:30:00) Calcium Lvl [8.5-10.5 7.9 mg/dL 8.1 mg/dL 8.0 mg/dL mg/dL] *LOW* *LOW* *LOW* (09/21/2011 06:00:00) (09/20/2011 05:38:00) (09/19/2011 06:00:00) Phosphorus [2.5-4.5 2.9 mg/dL 2.7 mg/dL 2.9 mg/dL mg/dL] (09/17/2011 05:30:00) (09/16/2011 03:15:00) (09/15/2011 03:00:00) Magnesium Lvl [1.8-2.4 1.6 mg/dL 1.7 mg/dL 1.8 mg/dL mg/dL] *LOW* *LOW* (09/19/2011 06:00:00) (09/21/2011 06:00:00) (09/20/2011 05:38:00) ALT [0-65 U/L] 8 U/L 8 U/L 12 U/L (09/16/2011 03:15:00) (09/14/2011 04:00:00) (09/11/2011 06:30:00) AST [0-37 U/L] 12 U/L 35 U/L 46 U/L (09/16/2011 03:15:00) (09/14/2011 04:00:00) *HI* (09/11/2011 06:30:00) Alk Phos [39-136 U/L] 52 U/L 54 U/L 40 U/L (09/16/2011 03:15:00) (09/14/2011 04:00:00) (09/11/2011 06:30:00) Bili Total [0.2-1.3 0.7 mg/dL 0.6 mg/dL 0.7 mg/dL mg/dL] (09/16/2011 03:15:00) (09/14/2011 04:00:00) (09/11/2011 06:30:00) Ammonia [<=45.0 uMol/L] 28.0 uMol/L (09/20/2011 05:38:00) Lactic Acid Lvl [0.5-2.2 0.9 mMol/L 1.6 mMol/L mMol/L] (09/14/2011 04:00:00) (09/11/2011 06:30:00) Total CK [12-191 U/L] 562 U/L 872 U/L 1190 U/L *HI* *HI* *HI* (09/15/2011 03:00:00) (09/14/2011 16:30:00) (09/14/2011 09:05:00) CK MB [0.5-3.6 ng/mL] 0.9 ng/mL 1.2 ng/mL 2.0 ng/mL (09/15/2011 03:00:00) (09/14/2011 16:30:00) (09/14/2011 09:05:00) CK MB Index [0.0-2.5] 0.2 0.1 0.2 (09/15/2011 03:00:00) (09/14/2011 16:30:00) (09/14/2011 09:05:00) Troponin-I [0.00-0.40 0.03 ng/mL 0.04 ng/mL 0.05 ng/mL ng/mL] (09/15/2011 03:00:00) (09/14/2011 16:30:00) (09/14/2011 09:05:00) BNP [<=100 pg/mL] 281 pg/mL 8 403 pg/mL 9 301 pg/mL 10 *HI* *HI* *HI* (09/16/2011 03:15:00) (09/15/2011 03:00:00) (09/14/2011 04:00:00) Trig [0-200 mg/dL] 82 mg/dL (09/14/2011 04:00:00) T4 [4.7-13.3 ug/dl] 9.9 ug/dl (09/20/2011 05:38:00) T4 Free [0.76-1.46 1.01 ng/dL ng/dL] (09/14/2011 09:05:00) TSH [0.360-3.740 uIU/mL] 4.590 uIU/mL 1.450 uIU/mL *HI* (09/11/2011 11:15:00) (09/14/2011 09:05:00) T3 Total [0.50-1.48 0.64 ng/mL ng/mL] (09/20/2011 05:38:00) T3 Free [2.18-3.98 1.51 pg/mL pg/mL] *LOW* (09/14/2011 09:05:00) Ca Ion mgdL [4.65-5.20 4.08 mg/dL 4.00 mg/dL 3.48 mg/dL mg/dL] *LOW* *LOW* *CRIT* (09/15/2011 03:00:00) (09/14/2011 04:00:00) (09/12/2011 20:30:00) Ca Ion [1.16-1.30 1.02 mMol/L 1.00 mMol/L 0.87 mMol/L 11 mMol/L] *LOW* *LOW* *CRIT* (09/15/2011 03:00:00) (09/14/2011 04:00:00) (09/12/2011 20:30:00) Ca Norm [1.16-1.30 1.01 mMol/L 0.98 mMol/L 0.85 mMol/L mMol/L] *LOW* *LOW* *CRIT* (09/15/2011 03:00:00) (09/14/2011 04:00:00) (09/12/2011 20:30:00) Ca Norm mgdL [4.65-5.20 4.04 mg/dL 3.92 mg/dL 3.40 mg/dL mg/dL] *LOW* *LOW* *CRIT* (09/15/2011 03:00:00) (09/14/2011 04:00:00) (09/12/2011 20:30:00) Vanco Tr TND 1400 *NA* (09/18/2011 13:20:00) Vanco Lvl TLD unknown ntn *NA* *NA* (09/15/2011 03:00:00) (09/14/2011 04:00:00) Vanco Lvl 9.2 ug/ml 12 3.3 ug/ml 13 *NA* *NA* (09/15/2011 03:00:00) (09/14/2011 04:00:00) Vanco Tr 3.5 ug/ml 14 *NA* (09/18/2011 13:20:00) Cortisol [3.0-23.0 15.3 ug/dl 15 ug/dl] (09/11/2011 11:15:00) U Sodium 12 mEq/L 16 *NA* (09/11/2011 13:30:00) U Potassium 50.7 mEq/L 17 *NA* (09/11/2011 13:30:00) U Chloride <10 mEq/L *NA* (09/11/2011 13:30:00) pH Art [7.35-7.45] 7.41 7.39 7.36 (09/16/2011 06:04:00) (09/15/2011 06:08:00) (09/14/2011 04:29:00) pCO2 Art [35-45 mmHg] 37 mmHg 36 mmHg 38 mmHg (09/16/2011 06:04:00) (09/15/2011 06:08:00) (09/14/2011 04:29:00) pO2 Art [80-100 mmHg] 78 mmHg 108 mmHg 86 mmHg *LOW* *HI* (09/14/2011 04:29:00) (09/16/2011 06:04:00) (09/15/2011 06:08:00) HCO3 Art [22-26 mMol/L] 24 mMol/L 22 mMol/L 22 mMol/L (09/16/2011 06:04:00) (09/15/2011 06:08:00) (09/14/2011 04:29:00) BE Art [-2-2 mMol/L] -1 mMol/L -3 mMol/L -4 mMol/L (09/16/2011 06:04:00) *LOW* *LOW* (09/15/2011 06:08:00) (09/14/2011 04:29:00) O2 Sat Art [95.0-100.0 96.0 % 98.0 % 96.0 % %] (09/16/2011 06:04:00) (09/15/2011 06:08:00) (09/14/2011 04:29:00) Site Art Right Ra Right Ra A Line (09/16/2011 06:04:00) (09/15/2011 06:08:00) (09/14/2011 04:29:00) Temp Art 37.0 DegC 37.0 DegC 37.0 DegC *NA* *NA* *NA* (09/16/2011 06:04:00) (09/15/2011 06:08:00) (09/14/2011 04:29:00) Allens Art Positive Positive N/A (09/16/2011 06:04:00) (09/15/2011 06:08:00) (09/12/2011 06:03:00) Flow Art 3.5 6 2.0 *NA* *NA* *NA* (09/16/2011 06:04:00) (09/11/2011 11:35:00) (09/11/2011 09:05:00) Mode Art NC A/C A/C (09/16/2011 06:04:00) (09/15/2011 06:08:00) (09/14/2011 04:29:00) Rate Art 12 10 *NA* *NA* (09/12/2011 06:03:00) (09/11/2011 17:21:00) Vt Art 500 500 *NA* *NA* (09/14/2011 04:29:00) (09/12/2011 06:03:00) FiO2 Art 40.0 40.0 60.0 *NA* *NA* *NA* (09/15/2011 06:08:00) (09/14/2011 04:29:00) (09/13/2011 05:45:00) PEEP Art 5.0 5.0 *NA* *NA* (09/14/2011 04:29:00) (09/12/2011 06:03:00) 5Interpretive Data: Adult reference range values reflect the clinical guidelinesof the [place] [employer].6Interpretive Data: Adult reference range values reflect the clinical guidelinesof the [place] [employer].7Interpretive Data: Adult reference range values reflect the clinical guidelinesof the [place] [employer].8Interpretive Data: Elevated results are in line with increasing severity of congestive heart failure. Minor elevations between 100 and 300 may be seen with Myocardial Ischemia, Sodium retaining drugs, and compensated/treated heart failure.9Interpretive Data: Elevated results are in line with increasing severity of congestive heart failure. Minor elevations between 100 and 300 may be seen with Myocardial Ischemia, Sodium retaining drugs, and compensated/ treated heart failure.10Interpretive Data: Elevated results are in line with increasing severity of congestive heart failure. Minor elevations between 100 and 300 may be seen with Myocardial Ischemia, Sodium retaining drugs, and compensated/treated heart failure.11Result Comment: Critical Result(s) called to [facility] at 09/12/2011 21:02 by tp. Read back OK.12Interpretive Data: Therapeutic Range: Trough: 10 - 20 ug/mL Peak : 20 - 40 ug/mL Potential Toxicity: >80 ug/[id number] Data: Therapeutic Range: Trough: 10 - 20 ug/mL Peak : 20 - 40 ug/mL Potential Toxicity: >80 ug/jG04Mwsvuofryibb Data: Therapeutic Range: Trough: 10 - 20 ug/mL Peak : 20 - 40 ug/mL Potential Toxicity: >80 ug/oP08Jmpalirlgcjl Data: CORD BLOOD: 5 - 17 ug/dLPREMATURE INFANTS:26-28 weeks, day 4 1 - 11 ug/dL31- 35 weeks, day 4 2.5 - 9.1 ug/dLFULL TERM INFANTS:3 days 1.7 - 14 ug/dL1-7 days 2 - 11 ug/dL1-12 months 2.8 - 23 ug/ dLCHILDREN (1 - 16 years) 3 - 21 ug/dLADULT RANGE:8AM 6.0 - 23.0 ug/dL4PM 3.0 - 16.0 ug/eG40Qkqwqponxwdo Data: No established reference ranges.17Interpretive Data: No established reference ranges.HEMATOLOGY Most recent to oldest 1 2 3 [Reference Range]: WBC [3.7-10.4 K/CMM] 8.2 K/CMM 7.5 K/CMM 9.1 K/CMM (09/21/2011 06:00:00) (09/20/2011 05:38:00) (09/19/2011 06:00:00) RBC [4.20-5.40 M/CMM] 3.15 M/CMM 3.70 M/CMM 3.48 M/CMM *LOW* *LOW* *LOW* (09/21/2011 06:00:00) (09/20/2011 05:38:00) (09/19/2011 06:00:00) Hgb [12.0-16.0 g/dL] 9.5 g/dL 11.0 g/dL 10.5 g/dL *LOW* *LOW* *LOW* (09/21/2011 06:00:00) (09/20/2011 05:38:00) (09/19/2011 06:00:00) Hct [36.0-48.0 %] 28.1 % 33.0 % 31.0 % *LOW* *LOW* *LOW* (09/21/2011 06:00:00) (09/20/2011 05:38:00) (09/19/2011 06:00:00) MCV [81.0-99.0 fL] 89.4 fL 89.1 fL 89.3 fL (09/21/2011 06:00:00) (09/20/2011 05:38:00) (09/19/2011 06:00:00) MCH [27.0-31.0 pg] 30.3 pg 29.8 pg 30.1 pg (09/21/2011 06:00:00) (09/20/2011 05:38:00) (09/19/2011 06:00:00) MCHC [32.0-36.0 g/dL] 33.9 g/dL 33.5 g/dL 33.7 g/dL (09/21/2011 06:00:00) (09/20/2011 05:38:00) (09/19/2011 06:00:00) RDW [11.5-14.5 %] 14.5 % 14.8 % 14.7 % (09/21/2011 06:00:00) *HI* *HI* (09/20/2011 05:38:00) (09/19/2011 06:00:00) Platelet [133-450 K/CMM] 152 K/CMM 169 K/CMM 189 K/CMM (09/21/2011 06:00:00) (09/20/2011 05:38:00) (09/19/2011 06:00:00) MPV [7.4-10.4 fL] 9.1 fL 8.7 fL 8.3 fL (09/21/2011 06:00:00) (09/20/2011 05:38:00) (09/19/2011 06:00:00) Segs [45.0-75.0 %] 59.7 % 62.1 % 66.2 % (09/21/2011 06:00:00) (09/20/2011 05:38:00) (09/19/2011 06:00:00) Lymphocytes [20.0-40.0 22.7 % 21.8 % 18.2 % %] (09/21/2011 06:00:00) (09/20/2011 05:38:00) *LOW* (09/19/2011 06:00:00) Monocytes [2.0-12.0 %] 10.5 % 8.1 % 8.5 % (09/21/2011 06:00:00) (09/20/2011 05:38:00) (09/19/2011 06:00:00) Eosinophils [0.0-4.0 %] 6.7 % 7.7 % 6.7 % *HI* *HI* *HI* (09/21/2011 06:00:00) (09/20/2011 05:38:00) (09/19/2011 06:00:00) Basophils [0.0-1.0 %] 0.4 % 0.3 % 0.4 % (09/21/2011 06:00:00) (09/20/2011 05:38:00) (09/19/2011 06:00:00) Segs-Bands # [1.5-8.1 4.9 K/CMM 4.7 K/CMM 6.0 K/CMM K/CMM] (09/21/2011 06:00:00) (09/20/2011 05:38:00) (09/19/2011 06:00:00) Lymphocytes # [1.0-5.5 1.9 K/CMM 1.6 K/CMM 1.7 K/CMM K/CMM] (09/21/2011 06:00:00) (09/20/2011 05:38:00) (09/19/2011 06:00:00) Monocytes # [0.0-0.8 0.9 K/CMM 0.6 K/CMM 0.8 K/CMM K/CMM] *HI* (09/20/2011 05:38:00) (09/19/2011 06:00:00) (09/21/2011 06:00:00) Eosinophils # [0.0-0.5 0.6 K/CMM 0.6 K/CMM 0.6 K/CMM K/CMM] *HI* *HI* *HI* (09/21/2011 06:00:00) (09/20/2011 05:38:00) (09/19/2011 06:00:00) Basophils # [0.0-0.2 0.0 K/CMM 0.0 K/CMM 0.0 K/CMM K/CMM] (09/21/2011 06:00:00) (09/20/2011 05:38:00) (09/19/2011 06:00:00) Polychrom [None Seen] Slight Slight (09/18/2011 06:50:00) (09/11/2011 06:30:00) Hypochrom [None Seen] Slight Slight (09/18/2011 06:50:00) (09/11/2011 06:30:00) Elliptocyte [None Seen] Slight *ABN* (09/12/2011 04:00:00) Baso Stipplin [None Slight Seen] *ABN* (09/11/2011 06:30:00) Plt Morph Normal Normal Normal (09/18/2011 06:50:00) (09/12/2011 04:00:00) (09/11/2011 06:30:00) PT [12.0-14.7 seconds] 15.5 seconds 15.0 seconds 15.4 seconds *HI* *HI* *HI* (09/21/2011 06:00:00) (09/20/2011 05:38:00) (09/19/2011 06:00:00) INR [0.85-1.17] 1.23 18 1.18 19 1.22 20 *HI* *HI* *HI* (09/21/2011 06:00:00) (09/20/2011 05:38:00) (09/19/2011 06:00:00) FSP [<5 ug/ml] >=20 ug/ml >=5 <20 ug/ml >=5 <20 ug/ml *ABN* *ABN* *ABN* (09/17/2011 05:30:00) (09/16/2011 03:15:00) (09/15/2011 03:00:00) PTT [22.9-35.8 seconds] 29.9 seconds 21 32.0 seconds 22 30.7 seconds 23 (09/21/2011 06:00:00) (09/20/2011 05:38:00) (09/19/2011 06:00:00) Heprn Ab(KAITY) Negative [Negative] (09/13/2011 13:00:00) Pat Od Value .058 *NA* (09/13/2011 13:00:00) Pos CO Value .403 *NA* (09/13/2011 13:00:00) 18Interpretive Data: RECOMMENDED RANGES FOR PROTIME INR: 2.0-3.0 for most medical and surgical thromboembolic states. 2.5-3.5 for artificial heart valves and recurrent embolism.INR SHOULD BE USED ONLY FOR PATIENTS ON STABLE ANTICOAGULANT THERAPY.19Interpretive Data: RECOMMENDED RANGES FOR PROTIME INR: 2.0-3.0 for most medical and surgical thromboembolic states. 2.5-3.5 for artificial heart valves and recurrent embolism.INR SHOULD BE USED ONLY FOR PATIENTS ON STABLE ANTICOAGULANT THERAPY.20Interpretive Data: RECOMMENDED RANGES FOR PROTIME INR: 2.0-3.0 for most medical and surgical thromboembolic states. 2.5-3.5 for artificial heart valves and recurrent embolism.INR SHOULD BE USED ONLY FOR PATIENTS ON STABLE ANTICOAGULANT THERAPY.21Interpretive Data: Heparin Therapeutic Range: 57 - 92 [id number] Data: Heparin Therapeutic Range: 57 - 92 [id number] Data: Heparin Therapeutic Range: 57 - 92 SecondsIMMUNOLOGY Most recent to oldest [Reference Range]: 1 2 3 Prealbumin [18.0-45.0 mg/dL] 8.1 mg/dL *LOW* (09/14/2011 04:00:00) Microbiology Reports PROCEDURE:Culture: Urine STATUS: Auth (Verified) BODY SITE: COLLECTED DATE/TIME: 09/20/2011 23:05:00 SOURCE: Urine, Clean Catch FREE TEXT SOURCE: FINAL REPORTS Final ReportNo GrowthPRELIMINARY REPORTS Preliminary ReportNo Growth; Holding PROCEDURE:Culture: Urine STATUS: Auth (Verified) BODY SITE: COLLECTED DATE/TIME: 09/11/2011 13:30:00 SOURCE: Urine, Zamarripa FREE TEXT SOURCE: FINAL REPORTS Final Qdqimq90,000 - 100,000 CFU/mL Yeast PRELIMINARY REPORTS Preliminary ReportNo Growth; Holding PROCEDURE: Culture: Blood STATUS: Auth (Verified) BODY SITE: Arterial Line R COLLECTED DATE/TIME: 09/11/2011 06:30:00 SOURCE: Blood FREE TEXT SOURCE: FINAL REPORTS Final ReportNo Growth At 5 DaysPRELIMINARY REPORTS* Preliminary ReportNo Growth At 2 Days Preliminary ReportNo Growth At 1 Day Preliminary ReportNo Growth At 4 Days Preliminary ReportNo Growth; Holding Preliminary ReportNo Growth At 3 Days PROCEDURE:Culture: Blood STATUS: Auth (Verified) BODY SITE: Arterial Line R COLLECTED DATE/TIME: 09/11/2011 06:00:00 SOURCE: Blood FREE TEXT SOURCE: FINAL REPORTS Final ReportNo Growth At 5 DaysPRELIMINARY REPORTS* Preliminary ReportNo Growth At 2 Days Preliminary ReportNo Growth At 1 Day Preliminary ReportNo Growth At 4 Days Preliminary ReportNo Growth At 3 Days Preliminary ReportNo Growth; Holding
--- OUTSIDE RECORDS SUMMARY | 2018-01-01 12:37 | XMS REPORT | CCD ---
:1950 Author Organization [facility] Care Team Providers Name Role Phone Brenda Bestmaria cguille Balderrama Consulting Provider Allergies, Adverse Reactions, Alerts Substance Reaction Status Adhesive Tape Active Demerol HCl Active NKFA Active Problem List Condition Effective Dates Status [D]Abdominal pain 09/10/2011 Active AF - Atrial fibrillation 09/14/2011 Active Central line insertion 09/11/2011 Active Cholecystectomy Active Cholecystectomy Active Depression Resolved Endotracheal intubation 09/11/2011 Active Gastric stapling Active Hernia repair 09/09/2011 Active Hernia repair Resolved HTN - Hypertension Active Hypothyroidism Resolved Idiopathic hypotension Active Low blood pressure 09/10/2011 Active Lysis of adhesions 09/09/2011 Active Panniculectomy 09/09/2011 Active PUD - Peptic ulcer disease Active Recurrent ventral hernia 09/09/2011 Active Medications Medication Instructions Start Date End Date Status Tylenol 650 mg, 2 tab, Route: PO, 06/01/2013 06/13/2013 Discontinued Drug form: TAB, Q6H, Dosing Weight 105.455, kg, PRN Pain, Start date: 06/01/13 10:33:00, Duration: 30 day, Stop date: 07/01/13 10:32:00Do not exceed 4 gm/day. (Same as: Tylenol) nystatin susp 30 nystatin susp 30 06/07/2013 06/10/2013 Discontinued ml+lidocaine visc 30 ml ml+lidocaine visc 30 ml, 5 mL, Drug form: MISC, Route: S&SWALLOW, Q3H-WA, 06/07/13 20:00:00, Stop date: 07/07/13 17:00:00 acetaminophen-hydrocodon 1 tab, Route: PO, Drug 06/11/2013 06/13/2013 Discontinued e 325 mg-5 mg oral Form: TAB, ONCALL, PRN tablet Pain, Start date: 06/11/13 18:45:00, Duration: 30 day, Stop date: 07/11/13 18:44:00(Same as: [place] 325/5) Do not exceed 4gm/day of acetaminophen. Ativan 1 mg, 0.5 mL, Route: IV, 06/06/2013 06/10/2013 Discontinued Drug form: INJ, Q6H, Start date: 06/06/13 0:00:00, Duration: 30 day, Stop date: 07/05/13 18:00:00(Same as: Ativan) morphine Sulfate 2 mg, 1 mL, Route: IVP, 06/04/2013 06/13/2013 Discontinued Drug form: INJ, Q4H, Dosing Weight 105.455, kg, PRN Pain, Start date: 06/04/13 15:19:00, Duration: 30 day, Stop date: 07/04/13 15:18:00(Same as:MORPhine Sulfate) magnesium sulfate 4 gm, 100 mL, Route: IVPB, 06/05/2013 06/13/2013 Discontinued Drug form: INJ, ONCALL, Start date: 06/05/13 8:00:00, Duration: 30 day, Stop date: 07/05/13 7:59:00 Lovenox 100 mg, 1 mL, Route: 06/07/2013 06/10/2013 Discontinued SUB-Q, Drug form: INJ, [id number], Start date: 06/07/13 20:00:00, Duration: 30 day, Stop date: 07/06/13 20:00:00Nurse to ensure documentation of patient education per anticoagulation policy.(Same as: Lovenox) Ancef + Sodium Chloride 1 gm, Route: IVPB, [id number], 06/04/2013 06/05/2013 Discontinued 0.9% IV 100 mL Dosing Weight 105.455, kg, Start date: 06/04/13 20:00:00, Duration: 30 day, Stop date: 07/04/13 12:00:00(Same As: Ancef, Kefzol) PROzac 40 mg, 2 cap, Route: NG, 05/31/2013 06/13/2013 Discontinued Drug form: CAP, Daily, Start date: 05/31/13 10:30:00, Stop date: 06/30/13 9:00:00(Same as: Prozac, Sarafem) Maxipime + Sodium 2 gm, Route: IVPB, ABXQ8H, 06/06/2013 06/13/2013 Discontinued Chloride 0.9% IV 100 mL Start date: 06/06/13 14:00:00, Duration: 30 day, Stop date: 07/06/13 6:00:00(Same as: Maxipime) Tylenol 650 mg, 1 supp, Route: [place], 06/06/2013 06/13/2013 Discontinued Drug form: SUPP, Q4H, PRN Pain/Fever, Start date: 06/06/13 13:03:00, Stop date: 07/06/13 13:02:00Max aphvzrhglwliz=6362 mg/day (4 gm/day). (Same as: Tylenol) promethazine 6.25 mg, Route: IVPB, 06/05/2013 06/05/2013 Discontinued ONCE, Dosing Weight 105.455, kg, PRN Nausea & Vomiting, Start date: 06/05/13 17:43:00 ondansetron 4 mg, 2 mL, Route: IVP, 06/05/2013 06/05/2013 Discontinued Drug form: INJ, ONCE, Dosing Weight 105.455, kg, PRN Nausea & Vomiting, Start date: 06/05/13 17:43:00(Same as: Zofran) naloxone 0.04 mg, 0.1 mL, Route: 06/05/2013 06/05/2013 Discontinued IVP, Drug form: INJ, Q2MIN, Dosing Weight 105.455, kg, PRN Narcotic Reversal, Start date: 06/05/13 17:43:00, Duration: 8 doses or times, Stop date: 06/05/13 23:00:00(Same as: Narcan) flumazenil 0.2 mg, 2 mL, Route: IVP, 06/05/2013 06/05/2013 Discontinued Drug form: INJ, PRN, Dosing Weight 105.455, kg, PRN Benzodiazepine Reversal, Initial dose, Start date: 06/05/13 17:43:00, Stop date: 06/05/13 23:00:00(Same as: Romazicon) meperidine 12.5 mg, Route: IVP, 06/05/2013 06/05/2013 Discontinued Q30Min, Dosing Weight 105.455, kg, PRN Other -See Comment, For shivering, Start date: 06/05/13 17:43:00, Duration: 2 doses or times, Stop date: Limited # of times Zofran 4 mg, 2 mL, Route: IV, 06/05/2013 06/13/2013 Discontinued Drug form: INJ, Q8H, Dosing Weight 105.455, kg, PRN Nausea, Start date: 06/05/13 15:42:00, Duration: 30 day, Stop date: 07/05/13 15:41:00(Same as: Zofran) labetalol 10 mg, 2 mL, Route: IVP, 06/05/2013 06/05/2013 Discontinued Drug form: INJ, Q5Min, Dosing Weight 105.455, kg, PRN Elevated BP, Start date: 06/05/13 17:43:00, Duration: 5 doses or times, Stop date: 06/05/13 23:00:00 hydrALAZINE 10 mg, 0.5 mL, Route: IVP, 06/05/2013 06/05/2013 Discontinued Drug form: INJ, Q20Min, Dosing Weight 105.455, kg, PRN Elevated BP, Start date: 06/05/13 17:43:00, Duration: 2 doses or times, Stop date: 06/05/13 23:00:00(Same as: Apresoline)Push over 5 minutes hydromorphone 0.5 mg, 0.5 mL, Route: 06/05/2013 06/05/2013 Discontinued IVP, Drug form: INJ, Q5Min, Dosing Weight 105.455, kg, PRN Pain Score 7-10, Start date: 06/05/13 17:43:00, Duration: 4 doses or times, Stop date: 06/05/13 23:00:00 fentanyl 25 microgram, 0.5 mL, 06/05/2013 06/05/2013 Discontinued Route: IVP, Drug form: INJ, Q5Min, Dosing Weight 105.455, kg, PRN Pain Score 4-6, Start date: 06/05/13 17:43:00, Duration: 4 doses or times, Stop date: 06/05/13 23:00:00(Same as: Sublimaze) Preservative free. acetaminophen 1,000 mg, 100 mL, Route: 06/05/2013 06/05/2013 Discontinued IVPB, Drug form: INJ, ONCE, Dosing Weight 105.455, kg, PRN Pain Score 1-3, Start date: 06/05/13 17:43:00, Duration: 1 doses or times, Stop date: Limited # of timesInfuse over 15 minutes Do not exceed 4gm/day of acetaminophen Benadryl 25 mg, 0.5 mL, Route: IV, 06/07/2013 06/10/2013 Discontinued Drug form: INJ, Q12H, Start date: 06/07/13 21:00:00, Stop date: 07/07/13 9:00:00(Same as: Benadryl) Lovenox 40 mg, 0.4 mL, Route: 06/11/2013 06/13/2013 Discontinued SUB-Q, Drug form: INJ, Q24H, Start date: 06/11/13 23:00:00, Duration: 30 day, Stop date: 07/10/13 23:00:00(Same as: Lovenox) Levothroid 50 microgram, 1 tab, 05/31/2013 06/13/2013 Discontinued Route: PO, Drug form: TAB, Q630AM, Start date: 05/31/13 10:30:00, Duration: 30 day, Stop date: 06/30/13 6:30:00Take 1 hour before or 2 hours after meal; Enteral feeds may interefere with the absorption of this medication.(Same as:Levothroid, Synthroid) Detrol LA 4 mg oral 4 mg=1 cap, PO, Daily, at bedtime, # 30 cap, 0 Refill(s) 05/31/2013 06/13/2013 Discontinued capsule, extended at bedtime release fluoxetine 40 mg oral 40 mg=1 cap, PO, Daily, at 9 AM, # 30 cap, 0 Refill(s) 05/31/2013 Ordered capsule at 9 AM Synthroid 50 mcg (0.05 50 microgram=1 tab, PO, Daily, at 9 AM, # 30 tab, 0 Refill(s) 05/31/2013 Ordered mg) oral tablet at 9 AM Prevacid 30 mg oral 30 mg=1 cap, PO, Daily, at bedtime, # 30 cap, 0 Refill(s) 05/31/2013 Ordered delayed release capsule at bedtime amino acids 4.25% 1,000 mL, Rate: 90 ml/hr, 06/05/2013 06/07/2013 Discontinued w/Lytes/D5W 1000ml Infuse over: 11.1 hr, (clinimixE) 1,000 mL Route: IV, Dosing Weight 105.455 kg, Total Volume: 1,000, Start date: 06/05/13 20:40:00, Duration: 30 day, Stop date: 07/05/13 20:39:00Same as: ClinimixE GoLYTELY 4,000 ml, Route: NG, Drug 06/04/2013 06/04/2013 Completed Form: PDR/REC, Dosing Weight 105.455, kg, ONCE, Start date: 06/04/13 15:25:00, Duration: 1 doses or times, Stop date: 06/04/13 15:25:00(polyethylene glycol electrolyte solution 4 Liter bottle) (Same as: Golytely, Colyte) Valium 2 mg, 1 tab, Route: PO, 05/31/2013 06/13/2013 Discontinued Drug form: TAB, BID, Dosing Weight 105.455, kg, PRN Anxiety, Start date: 05/31/13 18:33:00, Duration: 30 day, Stop date: 06/30/13 18:32:00(Same as: Valium) Ativan 1 mg, 0.5 mL, Route: IV, 06/04/2013 06/09/2013 Discontinued Drug form: INJ, Q4H, PRN Agitation, Start date: 06/04/13 22:03:00, Duration: 30 day, Stop date: 07/04/13 22:02:00(Same as: Ativan) ondansetron 4 mg, 2 mL, Route: IVP, 06/04/2013 06/04/2013 Completed Drug form: INJ, ONCE, Dosing Weight 105.455, kg, PRN Nausea & Vomiting, Start date: 06/04/13 15:50:00(Same as: Zofran) naloxone 0.04 mg, 0.1 mL, Route: 06/04/2013 06/04/2013 Discontinued IVP, Drug form: INJ, Q2MIN, Dosing Weight 105.455, kg, PRN Narcotic Reversal, Start date: 06/04/13 15:50:00, Duration: 8 doses or times, Stop date: 06/04/13 23:00:00(Same as: Narcan) flumazenil 0.2 mg, 2 mL, Route: IVP, 06/04/2013 06/04/2013 Discontinued Drug form: INJ, PRN, Dosing Weight 105.455, kg, PRN Benzodiazepine Reversal, Initial dose, Start date: 06/04/13 15:50:00, Duration: 30 day, Stop date: 07/04/13 15:49:00(Same as: Romazicon) influenza virus vaccine, 0.5 mL, Route: IM, Drug 09/09/2011 09/15/2011 Completed inactivated Form: INJ, ONCALL, Start date: 09/09/11 20:52:24, Stop date: 10/09/11 20:47:24Same as: Fluarix Contains 15 mcg of influenza virus antigen from each of 3 viruses H1N1, H3N2, and 3,11 acetaminophen 1,000 mg, 100 mL, Route: 06/04/2013 06/04/2013 Completed IVPB, Drug form: INJ, ONCE, Dosing Weight 105.455, kg, PRN Pain Score 1-3, Start date: 06/04/13 15:50:00, Duration: 1 doses or times, Stop date: Limited # of timesInfuse over 15 minutes Do not exceed 4gm/day of acetaminophen morphine Sulfate 2 mg, 1 mL, Route: IVP, 06/04/2013 06/04/2013 Discontinued Drug form: INJ, Q5Min, Dosing Weight 105.455, kg, PRN Pain Score 4-6, Start date: 06/04/13 15:50:00, Duration: 5 doses or times, Stop date: 06/04/13 23:00:00(Same as:MORPhine Sulfate) D5W 1/2NS + KCL 10mEq/L 1,000 mL, Rate: 125 ml/hr, 06/04/2013 06/04/2013 Deleted 1000ml (Premix) 1000 mL Infuse over: 8 hr, Route: IV, Dosing Weight 105.455 kg, Total Volume: 1,000, Start date: 06/04/13 15:24:00, Duration: 30 day, Stop date: 07/04/13 15:23:00 acetaminophen-hydrocodon 1 tab, Route: PO, Drug 06/10/2013 06/13/2013 Discontinued e 325 mg-10 mg oral Form: TAB, Q4H, PRN Pain, tablet Start date: 06/10/13 20:32:00, Duration: 30 day, Stop date: 07/10/13 20:31:00Do not exceed 4gm/day of acetaminophen. (Same as: [place] 325/10) fluticasone nasal 0.05 2 inhalation, Route: 06/08/2013 06/13/2013 Discontinued mg/inh spray NASAL, Drug Form: SPRY, BID, Start date: 06/08/13 9:00:00, Duration: 30 day, Stop date: 07/07/13 17:00:00(Same as: Flonase) temazepam 15 mg oral 15 mg=1 cap, PO, Bedtime, 06/13/2013 Ordered capsule Sleep, # 5 cap, 0 Refill(s) vancomycin 750 mg 1,054.55 mg, IV, Q24H, # 06/13/2013 Ordered intravenous injection 14 bag, 0 Refill(s), called to pharmacy Diflucan 200 mg, 100 mL, Route: 06/07/2013 06/10/2013 Discontinued IVPB, Drug form: INJ, [id number], Start date: 06/07/13 20:00:00, Duration: 30 day, Stop date: 07/06/13 20:00:00(Same as: Diflucan) Do not refrigerate GoLYTELY 4,000 ml, Route: PO, Drug 06/04/2013 06/04/2013 Completed Form: PDR/REC, Dosing Weight 105.455, kg, ONCE, Start date: 06/04/13 13:00:00, Duration: 1 doses or times, Stop date: 06/04/13 13:00:00(polyethylene glycol electrolyte solution 4 Liter bottle) (Same as: Golytely, Colyte) Ativan 1 mg, 1 tab, Route: PO, 06/10/2013 06/13/2013 Discontinued Drug form: TAB, Q4H, PRN Anxiety, Start date: 06/10/13 20:32:00, Duration: 30 day, Stop date: 07/10/13 20:31:00(Same as: Ativan) Protonix 40 mg, Route: IVP, Drug 06/05/2013 06/10/2013 Discontinued form: INJ, Before Dinner, Dosing Weight 105.455, kg, Patient is NPO, Start date: 06/05/13 16:39:00, Duration: 30 day, Stop date: 07/05/13 16:30:00For IV push reconstitute with 10 ml 0.9% sodium chloride and push over 2 minutes. (Same as: Protonix) amino acids 4.25% 1,000 mL, Rate: 90 ml/hr, 06/07/2013 06/08/2013 Discontinued w/Lytes/D5W 1000ml Infuse over: 11.1 hr, (clinimixE) 1,000 mL Route: IV, Dosing Weight 105.455 kg, Total Volume: 1,000, Start date: 06/07/13 12:26:00, Stop date: 06/08/13 21:00:00Same as: ClinimixE Lovenox 40 mg, 0.4 mL, Route: 06/05/2013 06/06/2013 Discontinued SUB-Q, Drug form: INJ, [id number], Dosing Weight 105.455, kg, Start date: 06/05/13 16:00:00, Duration: 30 day, Stop date: 07/04/13 16:00:00(Same as: Lovenox) potassium chloride 40 mEq, 200 mL, Route: 06/07/2013 06/07/2013 Completed IVPB, Drug form: INJ, ONCE, Start date: 06/07/13 20:02:00, Stop date: 06/07/13 20:02:00(Same as: KCL) Infuse no faster than 10 mEq/hr if given peripherally. Lasix 40 mg, 4 mL, Route: IV, 06/07/2013 06/07/2013 Completed Drug form: INJ, ONCE, Start date: 06/07/13 20:01:00, Stop date: 06/07/13 20:01:00(Same as: Lasix) Mycelex Shaina 10 mg, 1 lozenge, Route: 06/10/2013 06/13/2013 Discontinued MUCOUS MEM, Drug form: WINSTON, TID, Start date: 06/10/13 21:00:00, Duration: 30 day, Stop date: 07/10/13 12:00:00(Same As: Mycelex Shaina) Sodium Chloride 0.9% IV 250 mL, Route: IVPB, Start 05/31/2013 06/13/2013 Discontinued date: 05/31/13 10:11:00, Duration: 30 day, Stop date: 06/30/13 10:10:00, PRN Line Flush K-Dur 20 40 mEq, 2 tab, Route: PO, 06/03/2013 06/03/2013 Completed Drug form: ERTAB, ONCALL, Start date: 06/03/13 19:00:00, Duration: 1 doses or times(Same as: K-Dur 20)"Do Not Crush" With food and full glass of water BD Normal Saline Flush 10 mL, Route: IVP, Drug 05/31/2013 06/13/2013 Discontinued Form: INJ, PRN, PRN Line Flush, Start date: 05/31/13 10:11:00, Duration: 30 day, Stop date: 06/30/13 10:10:00(Same as: BD Posiflush) Lasix 40 mg, 4 mL, Route: IV, 06/06/2013 06/06/2013 Completed Drug form: INJ, ONCE, Start date: 06/06/13 12:03:00, Stop date: 06/06/13 12:03:00(Same as: Lasix) Ancef 2 gm, Route: IVPB, [id number], 06/05/2013 06/05/2013 Deleted Dosing Weight 105.455, kg, Start date: 06/05/13 16:00:00, Duration: 30 day, Stop date: 07/05/13 8:00:00 Dextrose 5% with 0.45% 1,000 mL, Rate: 125 ml/hr, 06/04/2013 06/05/2013 Discontinued NaCl IV 1,000 mL + Infuse over: 8 hr, Route: potassium chloride 10 IV, Dosing Weight 105.455 mEq kg, Total Volume: 1,005, Start date: 06/04/13 15:57:00, Duration: 30 day, Stop date: 07/04/13 15:56:00 ceFAZolin 2 gm, 100 mL, Route: IVPB, 06/05/2013 06/06/2013 Discontinued Drug form: INJ, [id number], Start date: 06/05/13 20:00:00, Duration: 30 day, Stop date: 07/05/13 12:00:00Same as: Ancef amino acids 5% 2,000 mL, Rate: 75 ml/hr, 06/07/2013 06/10/2013 Discontinued w/Lytes/D15W 2000ml Infuse over: 26.8 hr, (clinimixE) 2,000 mL + Route: IV, Dosing Weight thiamine 100 mg + folic 105.455 kg, Total Volume: acid 1 mg + phyto 2,011.3, Start date: 06/07/13 21:00:00, Duration: 30 day, Stop date: 07/07/13 20:59:00Same as: Clinimix E 5/15 Standard electrolytes for this formulation listed on bag potassium chloride 40 mEq, 200 mL, Route: 06/06/2013 06/06/2013 Completed IVPB, Drug form: INJ, ONCE, Start date: 06/06/13 12:03:00, Stop date: 06/06/13 12:03:00(Same as: KCL) Infuse no faster than 10 mEq/hr if given peripherally. senna 8.6 mg oral tablet 8.6 mg=1 tab, PO, BID, # 06/13/2013 Ordered 36 tab, 0 Refill(s) Klonopin 0.5 mg, 1 tab, Route: PO, 06/05/2013 06/13/2013 Discontinued Drug form: TAB, Daily, Start date: 06/05/13 9:00:00, Duration: 30 day, Stop date: 07/04/13 9:00:00(Same As: Klonopin) Klonopin 1 mg, 2 tab, Route: PO, 06/04/2013 06/04/2013 Completed Drug form: TAB, ONCE, Start date: 06/04/13 22:00:00, Stop date: 06/04/13 22:00:00(Same As: Klonopin) Restoril 15 mg, 1 cap, Route: PO, 05/31/2013 06/13/2013 Discontinued Drug form: CAP, Bedtime, PRN Sleep, Start date: 05/31/13 10:10:00, Duration: 30 day, Stop date: 06/30/13 10:09:00(Same As: Restoril) LORazepam 1 mg oral 1 mg=1 tab, PO, Q4H, 06/13/2013 Ordered tablet Anxiety, # 10 tab, 0 Refill(s) loratadine 10 mg oral 10 mg=1 tab, PO, Daily, # 06/13/2013 Ordered tablet 20 tab, 0 Refill(s) fluticasone nasal 0.05 100 microgram=2 06/13/2013 Ordered mg/inh spray inhalation, NASAL, BID, # 1 ea, 0 Refill(s) enoxaparin 40 mg/0.4 mL 40 mg=0.4 mL, SUB-Q, Q24H, 06/13/2013 Ordered subcutaneous solution # 30 mL, 0 Refill(s) Lasix 40 mg, 4 mL, Route: IV, 06/06/2013 06/06/2013 Completed Drug form: INJ, ONCALL, Start date: 06/06/13 13:00:00, Duration: 30 day, Stop date: 07/06/13 12:59:00(Same as: Lasix) Detrol LA 4 mg, 1 cap, Route: PO, 05/31/2013 06/13/2013 Discontinued Drug form: CAP, Daily, Start date: 05/31/13 10:30:00, Duration: 30 day, Stop date: 06/30/13 9:00:00Do Not Crush. (Same As: Detrol LA) Dulcolax Laxative 40 mg, 4 supp, Route: [place], 06/05/2013 06/05/2013 Completed Drug form: SUPP, ONCE, Start date: 06/05/13 9:43:00, Stop date: 06/05/13 9:43:00(Same As: Dulcolax, Bisco-Lax) Protonix 40 mg, 1 tab, Route: PO, 05/31/2013 06/05/2013 Discontinued Drug form: ECTAB, Before Dinner, Start date: 05/31/13 16:30:00, Duration: 30 day, Stop date: 06/29/13 16:30:00Tablet should not be chewed or crushed.(Same as: Protonix) vancomycin 750 mg, 150 mL, Route: 06/06/2013 06/13/2013 Discontinued IVPB, Drug form: SOLN, [id number], Start date: 06/06/13 15:00:00, Duration: 30 day, Stop date: 07/06/13 3:00:00Same as: Vancocin magnesium sulfate 4 gm, 100 mL, Route: IVPB, 06/03/2013 06/03/2013 Completed Drug form: INJ, ONCALL, Start date: 06/03/13 20:00:00, Duration: 30 day, Stop date: 07/03/13 19:59:00 clotrimazole 10 mg oral 10 mg=1 lozenge, MUCOUS 06/13/2013 Ordered lozenge MEM, TID, # 90 lozenge, 0 Refill(s) clonazePAM 0.5 mg oral 0.5 mg=1 tab, PO, Daily, # 06/13/2013 Ordered tablet 30 tab, 0 Refill(s), called to pharmacy Readi-Cat 2 450 mL, Route: PO, Drug 05/31/2013 06/08/2013 Discontinued Form: SUSP, ONCALL, Start date: 05/31/13 10:00:00, Duration: 30 day, Stop date: 06/30/13 9:59:00Same as Readi-Cat 2 morphine Sulfate 4 mg, 1 mL, Route: IV, 06/04/2013 06/13/2013 Discontinued Drug form: INJ, Q2H, PRN Pain Score 6-10, Start date: 06/04/13 22:25:00, Stop date: 07/04/13 22:24:00(Same as:MORPhine Sulfate) acetaminophen 325 mg 650 mg=2 tab, PO, Q6H, 06/13/2013 Ordered oral tablet Pain, # 50 tab, 0 Refill(s), called to pharmacy Dulcolax Laxative 10 mg, 1 supp, Route: [place], 06/05/2013 06/05/2013 Deleted Drug form: SUPP, ONCE, Start date: 06/05/13 7:38:00, Stop date: 06/05/13 7:38:00(Same As: Dulcolax, Bisco-Lax) potassium chloride 20 mEq, 100 mL, Route: 06/05/2013 06/05/2013 Completed IVPB, Drug form: INJ, Q2H, Start date: 06/05/13 8:00:00, Duration: 2 doses or times, Stop date: 06/05/13 10:00:00(Same as: KCL) Infuse no faster than 10 mEq/hr if given peripherally. fat emulsion, 250 mL, 31.25 ml/hr, 06/07/2013 06/10/2013 Discontinued intravenous Route: IV, Drug Form: INJ, Daily, Start date: 06/07/13 21:00:00, Duration: 30 day, Stop date: 07/06/13 21:00:00(Same as: Intralipid, Liposyn) acetaminophen-hydrocodon 1 tab, PO, Q4H, Pain, # 12 06/13/2013 Ordered e 325 mg-10 mg oral tab, 0 Refill(s), called tablet to pharmacy fluorescein ophthalmic 500 mg, 5 mL, Route: IV, 06/05/2013 06/09/2013 Discontinued ONCALL, Drug form: INJ, Start date: 06/05/13 12:00:00, Duration: 30 day, Stop date: 07/05/13 11:59:00(Same as: Fluorescite) Zofran 4 mg, 2 mL, Route: IVP, 05/31/2013 06/09/2013 Discontinued Drug form: INJ, Q4H, PRN Nausea, Start date: 05/31/13 5:49:00, Duration: 30 day, Stop date: 06/30/13 5:48:00(Same as: Zofran) Singulair 10 mg, 1 tab, Route: PO, 06/10/2013 06/13/2013 Discontinued Drug form: TAB, Bedtime, Start date: 06/10/13 21:00:00, Duration: 30 day, Stop date: 07/09/13 21:00:00(Same as:Singulair) Claritin 10 mg, 1 tab, Route: PO, 06/11/2013 06/13/2013 Discontinued Drug form: TAB, Daily, Start date: 06/11/13 9:00:00, Duration: 30 day, Stop date: 07/10/13 9:00:001 hr before meals (Same as: Claritin) Senokot 8.6 mg, 1 tab, Route: PO, 06/11/2013 06/13/2013 Discontinued Drug form: TAB, BID, Start date: 06/11/13 9:00:00, Duration: 30 day, Stop date: 07/10/13 17:00:00(Same as: Senokot) tolterodine 4 mg oral 4 mg=1 cap, PO, Daily, # 06/13/2013 Ordered capsule, extended 30 cap, 0 Refill(s), release called to pharmacy morphine Sulfate 4 mg, 2 mL, Route: IV, 05/31/2013 06/04/2013 Discontinued Drug form: INJ, Q4H, PRN Pain, Start date: 05/31/13 5:49:00, Duration: 30 day, Stop date: 06/30/13 5:48:00(Same as:MORPhine Sulfate) Dulcolax Laxative 40 mg, 4 supp, Route: [place], 06/05/2013 06/05/2013 Deleted Drug form: SUPP, ONCE, Start date: 06/05/13 8:07:00, Stop date: 06/05/13 8:07:00(Same As: Dulcolax, Bisco-Lax) Sodium Chloride 0.45% IV 1,000 mL, Rate: 75 ml/hr, 05/31/2013 06/08/2013 Discontinued 1,000 mL Infuse over: 13.3 hr, Route: IV, Dosing Weight 105.455 kg, Total Volume: 1,000, Start date: 05/31/13 5:49:00, Duration: 30 day, Stop date: 06/30/13 5:48:00 Venofer + Sodium 100 mg, 5 mL, Route: IV, 06/05/2013 06/13/2013 Discontinued Chloride 0.9% IV 100 mL Q24H, Start date: 06/05/13 21:00:00, Duration: 30 day, Stop date: 07/04/13 21:00:00 pneumococcal 23-valent 0.5 ml, Route: IM, Drug 05/31/2013 06/13/2013 Completed vaccine Form: INJ, ONCALL, Start date: 05/31/13 3:38:03, Stop date: 06/30/13 3:33:03(Same as: Pneumovax 23) Refrigerate influenza virus vaccine, 0.5 mL, Route: IM, Drug 05/31/2013 06/13/2013 Completed inactivated Form: SUSP, ONCALL, Start date: 05/31/13 3:38:03, Stop date: 06/30/13 3:33:03(Same as: Fluzone) potassium chloride 20 mEq, 100 mL, Route: 06/09/2013 06/09/2013 Completed IVPB, Drug form: INJ, Q2H, Start date: 06/09/13 21:00:00, Duration: 2 doses or times, Stop date: 06/09/13 23:00:00(Same as: KCL) Infuse no faster than 10 mEq/hr if given peripherally. Immunizations Vaccine Date Status influenza virus vaccine, inactivated 09/15/2011 Not Done influenza virus vaccine, inactivated 06/13/2013 Auth (Verified) pneumococcal 23-valent vaccine 06/13/2013 Auth (Verified) Vital Signs Most recent to oldest 1 2 3 [Reference Range]: Height 152.4 cm 152.4 cm (06/06/2013 07:50:00) (05/31/2013 03:25:00) Temperature Oral 98.5 DegF 97.8 DegF 97.5 DegF [96.4-99.1 DegF] (06/13/2013 15:15:00) (06/13/2013 12:00:00) (06/13/2013 08: 00:00) Systolic Blood Pressure 126 mmHg 127 mmHg 127 mmHg [90-140 mmHg] (06/13/2013 15:15:00) (06/13/2013 12:00:00) (06/13/2013 08:00: 00) Diastolic Blood Pressure 65 mmHg 61 mmHg 72 mmHg [60-90 mmHg] (06/13/2013 15:15:00) (06/13/2013 12:00:00) (06/13/2013 08:00: 00) Respiratory Rate [14-20 18 BRMIN 20 BRMIN 20 BRMIN BRMIN] (06/13/2013 15:15:00) (06/13/2013 12:00:00) (06/13/2013 08:00:00) Peripheral Pulse Rate 71 bpm 67 bpm 71 bpm [60-100 bpm] (06/13/2013 15:15:00) (06/13/2013 12:00:00) (06/13/2013 08:00: 00) Weight 105.455 kg 105.455 kg (05/31/2013 07:50:00) (05/31/2013 03:25:00) Results BEDSIDE GLUCOSE TESTING Most recent to oldest 1 2 3 [Reference Range]: Glucose POC [70-99 103 mg/dL 1 108 mg/dL 2 110 mg/dL 3 mg/dL] *HI* *HI* *HI* (06/10/2013 18:15:00) (06/10/2013 11:45:00) (06/10/2013 05:47:00) Gluc POC Comment 1 Notified RN/MD Notified RN/MD Notified RN/MD *NA* *NA* *NA* (06/10/2013 18:15:00) (06/10/2013 11:45:00) (06/09/2013 19:21:00) 1Interpretive Data: Upper Reportable Limit: 200 mg/dL.2Interpretive Data: Upper Reportable Limit: 200 mg/dL.3Interpretive Data: Upper Reportable Limit: 200 mg/dL.BLOOD BANK RESULTS Most recent to oldest [Reference 1 2 3 Range]: ABO/Rh O POS *Unknown* (06/03/2013 05:45:00) Antibody Scrn Negative (06/03/2013 05:45:00) RBC product Product available Product available (06/06/2013 12:03:00) (06/04/2013 12:06:00) CHEMISTRY Most recent to oldest 1 2 3 [Reference Range]: Sodium Lvl [135-145 mEq/L] 140 mEq/L 142 mEq/L 140 mEq/L (06/12/2013 05:00:00) (06/10/2013 05:40:00) (06/09/2013 05:00:00) Potassium Lvl [3.5-5.1 4.0 mEq/L 3.8 mEq/L 3.5 mEq/L mEq/L] (06/12/2013 05:00:00) (06/10/2013 05:40:00) (06/09/2013 05:00:00) Chloride Lvl [95-109 mEq/L] 104 mEq/L 105 mEq/L 101 mEq/L (06/12/2013 05:00:00) (06/10/2013 05:40:00) (06/09/2013 05:00:00) CO2 [24-32 mEq/L] 28 mEq/L 31 mEq/L 30 mEq/L (06/12/2013 05:00:00) (06/10/2013 05:40:00) (06/09/2013 05:00:00) AGAP [10.0-20.0 mEq/L] 12.0 mEq/L 9.8 mEq/L 12.5 mEq/L (06/12/2013 05:00:00) *LOW* (06/09/2013 05:00:00) (06/10/2013 05:40:00) Creatinine Lvl [0.5-1.4 0.9 mg/dL 0.8 mg/dL 0.9 mg/dL mg/dL] (06/12/2013 05:00:00) (06/10/2013 05:40:00) (06/09/2013 05:00:00) eGFR 69 mL/min/1.73m2 4 80 mL/min/1.73m2 5 69 mL/min/1.73m2 6 *NA* *NA* *NA* (06/12/2013 05:00:00) (06/10/2013 05:40:00) (06/09/2013 05:00:00) BUN [7-22 mg/dL] 14 mg/dL 18 mg/dL 17 mg/dL (06/12/2013 05:00:00) (06/10/2013 05:40:00) (06/09/2013 05:00:00) B/C Ratio [6-25] 20 8 (06/08/2013 06:00:00) (06/05/2013 03:30:00) Glucose Lvl [70-99 mg/dL] 82 mg/dL 7 113 mg/dL 8 112 mg/dL 9 (06/12/2013 05:00:00) *HI* *HI* (06/10/2013 05:40:00) (06/09/2013 05:00:00) Total Protein [6.4-8.4 5.5 g/dL 5.7 g/dL g/dL] *LOW* *LOW* (06/08/2013 06:00:00) (06/05/2013 03:30:00) Albumin Lvl [3.5-5.0 g/dL] 2.2 g/dL 3.0 g/dL *LOW* *LOW* (06/08/2013 06:00:00) (06/05/2013 03:30:00) Globulin [2.0-4.0 g/dL] 3.3 g/dL 2.7 g/dL (06/08/2013 06:00:00) (06/05/2013 03:30:00) A/G Ratio [0.7-1.6] 0.7 1.1 (06/08/2013 06:00:00) (06/05/2013 03:30:00) Calcium Lvl [8.5-10.5 8.2 mg/dL 8.2 mg/dL 7.9 mg/dL mg/dL] *LOW* *LOW* *LOW* (06/12/2013 05:00:00) (06/10/2013 05:40:00) (06/09/2013 05:00:00) Phosphorus [2.5-4.5 mg/dL] 3.6 mg/dL 3.5 mg/dL 3.3 mg/dL (06/11/2013 06:00:00) (06/10/2013 05:40:00) (06/09/2013 05:00:00) Magnesium Lvl [1.8-2.4 2.0 mg/dL 2.1 mg/dL 2.0 mg/dL mg/dL] (06/11/2013 06:00:00) (06/10/2013 05:40:00) (06/09/2013 05:00:00) ALT [0-65 unit/L] 6 unit/L 19 unit/L (06/08/2013 06:00:00) (06/05/2013 03:30:00) AST [0-37 unit/L] 7 unit/L 14 unit/L (06/08/2013 06:00:00) (06/05/2013 03:30:00) Alk Phos [39-136 unit/L] 63 unit/L 51 unit/L (06/08/2013 06:00:00) (06/05/2013 03:30:00) Bili Total [0.2-1.3 mg/dL] 0.5 mg/dL 0.5 mg/dL (06/08/2013 06:00:00) (06/05/2013 03:30:00) Trig [<=149 mg/dL] 123 mg/dL (06/08/2013 06:00:00) T4 [4.7-13.3 ug/dl] 9.0 ug/dl (05/31/2013 10:50:00) TSH [0.360-3.740 uIU/mL] 8.430 uIU/mL *HI* (05/31/2013 10:50:00) T3 Total [0.60-1.81 ng/mL] 1.32 ng/mL (05/31/2013 10:50:00) Vanco Tr TND 1500 *NA* (06/07/2013 14:40:35) Vanco Tr 4.7 ug/ml 10 *NA* (06/07/2013 14:40:35) 4Result Comment: The eGFR is calculated using the CKD-EPI formula. In most young , healthy individualsthe eGFR will be >90 mL/min/1.73m2. The eGFR declines with age. An eGFR of 60-89 may be normal in some populations, particularly the elderly, for whom the CKD-EPI formula has not been extensively validated. Use of the eGFR is not recommended in the following populations: Individuals with unstable creatinine concentrations, including patients and those with serious co-morbid conditions. Patients with extremes in muscle mass or diet. The data above are obtained from the National Kid[employer] Disease Education Program ( [employer]) which additionally recommends that when the eGFR is used in patients with extremes of body mass index for purposesof drug dosing, the eGFR should be multiplied by the estimated BMI.5Result Comment: The eGFR is calculated using the CKD-EPI formula. In most young, healthy individualsthe eGFR will be >90 mL/ min/1.73m2. The eGFR declines with age. An eGFR of 60-89 may be normal in some populations, particularly the elderly, for whom the CKD-EPI formula has not been extensively validated. Use of the eGFR is not recommended in the following populations: Individuals with unstable creatinine concentrations, including patients and those with serious co-morbid conditions. Patients with extremes in muscle mass or diet. The data above are obtained from the National Kid[employer] Disease Education Program ( [employer]) which additionally recommends that when the eGFR is used in patients with extremes of body mass index for purposesof drug dosing, the eGFR should be multiplied by the estimated BMI.6Result Comment: The eGFR is calculated using the CKD-EPI formula. In most young, healthy individualsthe eGFR will be >90 mL/ min/1.73m2. The eGFR declines with age. An eGFR of 60-89 may be normal in some populations, particularly the elderly, for whom the CKD-EPI formula has not been extensively validated. Use of the eGFR is not recommended in the following populations: Individuals with unstable creatinine concentrations, including patients and those with serious co-morbid conditions. Patients with extremes in muscle mass or diet. The data above are obtained from the National Kid[employer] Disease Education Program ( [employer]) which additionally recommends that when the eGFR is used in patients with extremes of body mass index for purposesof drug dosing, the eGFR should be multiplied by the estimated BMI.7Interpretive Data: Adult reference range values reflect the clinical guidelines of the [place] [employer].8Interpretive Data: Adult reference range values reflect the clinical guidelines of the [place] [employer].9Interpretive Data: Adult reference range values reflect the clinical guidelines of the [place] [employer].10Interpretive Data: Therapeutic Range: Trough: 10 - 20 ug/mL Peak: 20 - 40 ug/mL Potential Toxicity: >80 ug/mLHEMATOLOGY Most recent to oldest 1 2 3 [Reference Range]: WBC [3.7-10.4 K/CMM] 7.4 K/CMM 9.1 K/CMM 11.0 K/CMM (06/12/2013 05:00:00) (06/08/2013 06:00:00) *HI* (06/07/2013 02:45:00) RBC [4.20-5.40 M/CMM] 3.21 M/CMM 3.21 M/CMM 3.40 M/CMM *LOW* *LOW* *LOW* (06/12/2013 05:00:00) (06/08/2013 06:00:00) (06/07/2013 02:45:00) Hgb [12.0-16.0 g/dL] 9.4 g/dL 9.3 g/dL 9.5 g/dL *LOW* *LOW* *LOW* (06/12/2013 05:00:00) (06/08/2013 06:00:00) (06/07/2013 02:45:00) Hct [36.0-48.0 %] 28.2 % 27.3 % 28.7 % *LOW* *LOW* *LOW* (06/12/2013 05:00:00) (06/08/2013 06:00:00) (06/07/2013 02:45:00) MCV [81.0-99.0 fL] 87.7 fL 84.8 fL 84.5 fL (06/12/2013 05:00:00) (06/08/2013 06:00:00) (06/07/2013 02:45:00) MCH [27.0-31.0 pg] 29.3 pg 29.0 pg 27.9 pg (06/12/2013 05:00:00) (06/08/2013 06:00:00) (06/07/2013 02:45:00) MCHC [32.0-36.0 g/dL] 33.5 g/dL 34.2 g/dL 33.0 g/dL (06/12/2013 05:00:00) (06/08/2013 06:00:00) (06/07/2013 02:45:00) RDW [11.5-14.5 %] 15.5 % 15.6 % 15.5 % *HI* *HI* *HI* (06/12/2013 05:00:00) (06/08/2013 06:00:00) (06/07/2013 02:45:00) Platelet [133-450 K/CMM] 192 K/CMM 141 K/CMM 139 K/CMM (06/12/2013 05:00:00) (06/08/2013 06:00:00) (06/07/2013 02:45:00) MPV [7.4-10.4 fL] 9.5 fL 9.9 fL 9.7 fL (06/12/2013 05:00:00) (06/08/2013 06:00:00) (06/07/2013 02:45:00) Segs [45.0-75.0 %] 57.7 % 74.6 % 71.0 % (06/12/2013 05:00:00) (06/08/2013 06:00:00) (06/04/2013 15:45:01) Bands [0.0-11.0 %] 7.0 % (06/04/2013 15:45:01) Lymphocytes [20.0-40.0 %] 24.6 % 12.8 % 9.0 % (06/12/2013 05:00:00) *LOW* *LOW* (06/08/2013 06:00:00) (06/04/2013 15:45:01) Atypical Lymphs [<=0.0 %] 7.0 % *HI* (06/04/2013 15:45:01) Monocytes [2.0-12.0 %] 10.3 % 8.0 % 3.0 % (06/12/2013 05:00:00) (06/08/2013 06:00:00) (06/04/2013 15:45:) Eosinophils [0.0-4.0 %] 6.6 % 4.1 % *HI* *HI* (06/12/2013 05:00:00) (06/08/2013 06:00:00) Basophils [0.0-1.0 %] 0.8 % 0.5 % 3.0 % (06/12/2013 05:00:00) (06/08/2013 06:00:00) *HI* (06/04/2013 15:45:01) Segs-Bands # [1.5-8.1 4.3 K/CMM 6.8 K/CMM 12.9 K/CMM K/CMM] (06/12/2013 05:00:00) (06/08/2013 06:00:00) *HI* (06/04/2013 15:45:01) Lymphocytes # [1.0-5.5 1.8 K/CMM 1.2 K/CMM 2.6 K/CMM K/CMM] (06/12/2013 05:00:00) (06/08/2013 06:00:00) (06/04/2013 15:45:01) Monocytes # [0.0-0.8 0.8 K/CMM 0.7 K/CMM 0.5 K/CMM K/CMM] (06/12/2013 05:00:00) (06/08/2013 06:00:00) (06/04/2013 15:45:01) Eosinophils # [0.0-0.5 0.5 K/CMM 0.4 K/CMM K/CMM] (06/12/2013 05:00:00) (06/08/2013 06:00:00) Basophils # [0.0-0.2 0.1 K/CMM 0.0 K/CMM 0.5 K/CMM K/CMM] (06/12/2013 05:00:00) (06/08/2013 06:00:00) *HI* (06/04/2013 15:45:01) Polychrom [None Seen] Slight (06/12/2013 05:00:00) Hypochrom [None Seen] Slight (06/12/2013 05:00:00) Macrocyte [None Seen] 1+ *ABN* (06/12/2013 05:00:00) Target Cell [None Seen] Slight *ABN* (06/12/2013 05:00:00) Tear Cell [None Seen] Slight *ABN* (06/12/2013 05:00:00) Ettrick Cell [None Seen] Slight *ABN* (06/12/2013 05:00:00) Stomatocyte [None Seen] Slight *ABN* (06/04/2013 15:45:01) Plt Morph Normal Normal (06/12/2013 05:00:00) (06/04/2013 15:45:01) PT [12.0-14.7 seconds] 15.6 seconds *HI* (06/07/2013 02:45:00) INR [0.85-1.17] 1.25 11 *HI* (06/07/2013 02:45:00) Fibrinogen Lvl [230-510 694 mg/dL mg/dL] *HI* (06/07/2013 02:45:00) FSP [<5 ug/ml] >=5 <20 ug/ml *ABN* (06/07/2013 02:45:00) PTT [22.9-35.8 seconds] 33.8 seconds 12 36.6 seconds 13 (06/07/2013 02:45:00) *HI* (06/06/2013 03:45:53) 11Interpretive Data: RECOMMENDED RANGES FOR PROTIME INR: 2.0-3.0 for most medical and surgical thromboembolic states. 2.5-3.5 for artificial heart valves and recurrent embolism. INR SHOULD BE USED ONLY FOR PATIENTS ON STABLE ANTICOAGULANT THERAPY.12Interpretive Data: Heparin Therapeutic Range: 57 - 92 [id number] Data: Heparin Therapeutic Range: 57 - 92 SecondsIMMUNOLOGY Most recent to oldest [Reference Range]: 1 2 3 Prealbumin [18.0-45.0 mg/dL] 7.8 mg/dL *LOW* (06/09/2013 05:00:00) Microbiology Reports PROCEDURE:Culture: Blood STATUS: Auth (Verified) BODY SITE: COLLECTED DATE/TIME: 06/06/2013 14:00:56 SOURCE: Blood FREE TEXT SOURCE: FINAL REPORTS Final ReportNo Growth At 5 DaysPRELIMINARY REPORTS* Preliminary ReportNo Growth At 4 Days Preliminary ReportNo Growth ; Holding Preliminary ReportNo Growth At 3 Days Preliminary ReportNo Growth At 1 Day Preliminary ReportNo Growth At 2 Days PROCEDURE:Culture: Blood STATUS: Auth (Verified) BODY SITE: COLLECTED DATE/TIME: 06/06/2013 13:00:00 SOURCE: Blood FREE TEXT SOURCE: FINAL REPORTS Final ReportNo Growth At 5 DaysPRELIMINARY REPORTS* Preliminary ReportNo Growth At 2 Days Preliminary ReportNo Growth At 3 Days Preliminary ReportNo Growth At 1 Day Preliminary ReportNo Growth; Holding Preliminary ReportNo Growth At 4 Days PROCEDURE:Culture: MRSA Rapid Screen, Nasal Only STATUS: Auth (Verified) BODY SITE: COLLECTED DATE/TIME: 06/02/2013 11:00:14 SOURCE: Nasal Swab FREE TEXT SOURCE: FINAL REPORTS Final ReportNo Methicillin Resistant Staphylococcus Aureus Isolated Procedures Procedures Date Related Diagnosis Appendectomy Hernia repair
--- OUTSIDE RECORDS SUMMARY | 2018-01-01 12:37 | XMS REPORT | CCD ---
:1950 Author Organization [facility] Care Team Providers Name Role Phone Giovanny Blue Consulting Provider Allergies, Adverse Reactions, Alerts Substance [...] Medication Instructions Start Date End Date Status Lovenox 40 mg, 0.4 mL, Route: 06/13/2013 06/20/2013 Discontinued SUB-Q, Drug form: INJ, [id number], Start date: 06/13/13 23:00:00, Duration: 30 day, Stop date: 07/12/13 23:00:00(Same as: Lovenox) CeleXA 20 mg, 1 tab, Route: PO, 06/17/2013 06/20/2013 Discontinued Drug form: TAB, BID-After Meals, Start date: 06/17/13 8:30:00, Duration: 30 day, Stop date: 07/16/13 13:00:00(Same As: CeleXA) Lidoderm 5% topical film 1 patch, TOP, Daily, Remove after 12 hours, # 30 patch, 0 Refill(s), given to patient 06/20/2013 Ordered (patch) Remove after 12 hours Levothroid 50 microgram, 1 tab, 06/14/2013 06/20/2013 Discontinued Route: PO, Drug form: TAB, [id number], Start date: 06/14/13 6:30:00, Duration: 30 day, Stop date: 07/13/13 6:30:00Take 1 hour before or 2 hours after meal; Enteral feeds may interefere with the absorption of this medication.(Same as:Levothroid, Synthroid) Exelon 4.6 mg, 1 patch, Route: 06/17/2013 06/20/2013 Discontinued TOP, Drug form: ERFILM, Daily, Start date: 06/17/13 9:00:00, Duration: 30 day, Stop date: 07/16/13 9:00:00Same as Exelon"Remove old patch before application of new patch" citalopram 20 mg oral 20 mg=1 tab, PO, 06/20/2013 Ordered tablet BID-After Meals, # 60 tab, 0 Refill(s), given to patient fluticasone nasal 0.05 2 inhalation, Route: 06/14/2013 06/20/2013 Discontinued mg/inh spray NASAL, Drug Form: SPRY, BID, Start date: 06/14/13 9:00:00, Duration: 30 day, Stop date: 07/13/13 17:00:00(Same as: Flonase) Claritin 10 mg, 1 tab, Route: PO, 06/14/2013 06/20/2013 Discontinued Drug form: TAB, Daily, Start date: 06/14/13 9:00:00, Duration: 30 day, Stop date: 07/13/13 9:00:001 hr before meals (Same as: Claritin) acetaminophen-hydrocodone 1 tab, Route: PO, Drug 06/13/2013 06/20/2013 Discontinued 325 mg-5 mg oral tablet Form: TAB, Dosing Weight 105.455, kg, Q4H, PRN Pain Score 1-3, Start date: 06/13/13 21:01:00, Duration: 30 day, Stop date: 07/13/13 21:00:00(Same as: [place] 325/5) Do not exceed 4gm/day of acetaminophen. acetaminophen 650 mg, 2 tab, Route: 06/13/2013 06/20/2013 Discontinued PO, Drug form: TAB, Q4H, Dosing Weight 105.455, kg, PRN Pain Score 1-3, Start date: 06/13/13 21:01:00, Duration: 30 day, Stop date: 07/13/13 21:00:00Do not exceed 4 gm/day. (Same as: Tylenol) Saline Flush 0.9% 3 mL, Route: IVP, Drug Form: INJ, Dosing Weight 105.455, kg , Q8H, PRN Line Flush, Start date: 06/13/13 21:01:00, Duration: 30 day, Stop date: 07/13/13 21:00:00, Administer at least once every 8 hours 06/13/2013 Discontinued Administer at least once every 8 hours(Same as: BD Posiflush) polyethylene glycol 3350 17 gm, 1 pkt, Route: PO, 06/14/2013 06/20/2013 Discontinued Drug form: PWDR, Daily, Dosing Weight 105.455, kg, Start date: 06/14/13 9:00:00, Duration: 30 day, Stop date: 07/13/13 9:00:00Dissolve in 8 oz of water or juice.(Same as: Miralax) bisacodyl 10 mg, 1 supp, Route: 06/13/2013 06/20/2013 Discontinued [place], Drug form: SUPP, Bedtime, Dosing Weight 105.455, kg, PRN Constipation, Start date: 06/13/13 21:01:00, Duration: 30 day, Stop date: 07/13/13 21:00:00(Same As: Dulcolax, Bisco-Lax) influenza virus vaccine, 0.5 mL, Route: IM, Drug 09/09/2011 09/15/2011 Completed inactivated Form: INJ, ONCALL, Start date: 09/09/11 20:52:24, Stop date: 10/09/11 20:47:24Same as: Fluarix Contains 15 mcg of influenza virus antigen from each of 3 viruses H1N1, H3N2, and 3,11 Ativan 1 mg, 2 tab, Route: PO, 06/13/2013 06/20/2013 Discontinued Drug form: TAB, Q4H, PRN Anxiety, Start date: 06/13/13 21:31:00, Stop date: 07/13/13 21:30:00(Same as: Ativan) Remeron 7.5 mg, 0.5 tab, Route: 06/15/2013 06/20/2013 Discontinued PO, Drug form: TAB, Bedtime, Start date: 06/15/13 21:00:00, Duration: 30 day, Stop date: 07/14/13 21:00:00(Same as:Remeron) Singulair 10 mg, 1 tab, Route: PO, 06/14/2013 06/20/2013 Discontinued Drug form: TAB, Bedtime, Start date: 06/14/13 21:00:00, Duration: 30 day, Stop date: 07/13/13 21:00:00(Same as:Singulair) Senokot 8.6 mg, 1 tab, Route: 06/14/2013 06/20/2013 Discontinued PO, Drug form: TAB, BID, Start date: 06/14/13 9:00:00, Duration: 30 day, Stop date: 07/13/13 17:00:00(Same as: Senokot) Restoril 15 mg, 1 cap, Route: PO, 06/13/2013 06/20/2013 Discontinued Drug form: CAP, Bedtime, PRN Sleep, Start date: 06/13/13 21:37:00, Duration: 30 day, Stop date: 07/13/13 21:36:00(Same As: Restoril) PROzac 40 mg, 2 cap, Route: NG, 06/14/2013 06/16/2013 Discontinued Drug form: CAP, Daily, Start date: 06/14/13 9:00:00, Duration: 30 day, Stop date: 07/13/13 9:00:00(Same as: Prozac, Sarafem) Mycelex Shaina 10 mg, 1 lozenge, Route: 06/14/2013 06/19/2013 Discontinued MUCOUS MEM, Drug form: WINSTON, TID, Start date: 06/14/13 8:00:00, Duration: 30 day, Stop date: 07/13/13 21:00:00(Same As: Mycelex Shaina) vancomycin 750 mg, 150 mL, Route: 06/14/2013 06/19/2013 Discontinued IVPB, Drug form: SOLN, [id number], Start date: 06/14/13 3:00:00, Duration: 30 day, Stop date: 07/13/13 18:00:00Same as: Vancocin rivastigmine 4.6 mg/24 hr =1 patch, TOP, Daily, # 06/20/2013 Ordered transdermal film, extended 30 patch, 0 Refill(s) release Lidoderm 5% topical film 1 patch, Route: TOP, Daily, Drug form: FILM, Start date: 06/17/13 9:00:00, Duration: 30 day, Stop date: 07/16/13 9:00:00, Remove after 12 hours 06/17/2013 06/20/2013 Discontinued (patch) Remove after 12 hoursApply only once for up to 12 hours in [id number] period (12 hours on and 12 hours off).(Same as: Lidoderm)"Remove old patch before application of new patch" mirtazapine 15 mg oral 7.5 mg=0.5 tab, PO, 06/20/2013 Ordered tablet Bedtime, # 30 tab, 0 Refill(s) pneumococcal 23-valent 0.5 ml, Route: IM, Drug 05/31/2013 06/13/2013 Completed vaccine Form: INJ, ONCALL, Start date: 05/31/13 3:38:03, Stop date: 06/30/13 3:33:03(Same as: Pneumovax 23) Refrigerate influenza virus vaccine, 0.5 mL, Route: IM, Drug 05/31/2013 06/13/2013 Completed inactivated Form: SUSP, ONCALL, Start date: 05/31/13 3:38:03, Stop date: 06/30/13 3:33:03(Same as: Fluzone) Immunizations Vaccine Date Status influenza virus vaccine, inactivated 09/15/2011 Not Done influenza virus vaccine, inactivated 06/13/2013 Auth (Verified) pneumococcal 23-valent vaccine 06/13/2013 Auth (Verified) Vital Signs Most recent to oldest 1 2 3 [Reference Range]: Height 152.4 cm 152.4 cm (06/13/2013 20:44:00) (06/13/2013 20:35:00) Temperature Oral 98.1 DegF 98.1 DegF 98.3 DegF [96.4-99.1 DegF] (06/20/2013 00:33:00) (06/19/2013 15:46:00) (06/19/2013 08: 05:00) Systolic Blood Pressure 144 mmHg 124 mmHg 144 mmHg [90-140 mmHg] *HI* (06/20/2013 00:33:00) *HI* (06/20/2013 08:01:00) (06/19/2013 15:46:00) Diastolic Blood Pressure 75 mmHg 73 mmHg 66 mmHg [60-90 mmHg] (06/20/2013 08:01:00) (06/20/2013 00:33:00) (06/19/2013 15:46: 00) Respiratory Rate [14-20 18 BRMIN 18 BRMIN 18 BRMIN BRMIN] (06/20/2013 08:01:00) (06/20/2013 00:33:00) (06/19/2013 15:46:00) Peripheral Pulse Rate 69 bpm 73 bpm 74 bpm [60-100 bpm] (06/20/2013 08:01:00) (06/20/2013 00:33:00) (06/19/2013 15:46: 00) Weight 105.455 kg 105.455 kg (06/13/2013 20:44:00) (06/13/2013 20:35:00) Results URINALYSIS Most recent to oldest [Reference Range]: 1 2 UA Turbidity [Clear] Clear (06/14/2013 09:45:34) UA Color [Yellow] Light Yellow *NA* (06/14/2013 09:45:34) UA pH [5.0-8.0] 5.5 (06/14/2013 09:45:34) UA Spec Grav [<=1.030] 1.009 (06/14/2013 09:45:34) UA Glucose [Negative mg/dL] Negative mg/dL *NA* (06/14/2013 09:45:34) UA Blood [Negative] Negative (06/14/2013 09:45:34) UA Ketones [Negative mg/dL] Negative mg/dL *NA* (06/14/2013 09:45:34) UA Protein [Negative mg/dL] 20 mg/dL *ABN* (06/14/2013 09:45:34) UA Urobilinogen [0.1-1.0 mg/dL] <=1.0 mg/dL *NA* (06/14/2013 09:45:34) UA Bili [Negative] Negative *NA* (06/14/2013 09:45:34) UA Leuk Est [Negative] Negative (06/14/2013 09:45:34) UA Nitrite [Negative] Negative (06/14/2013 09:45:34) UA WBC [0-5 /HPF] 4 /HPF (06/14/2013 09:45:34) UA RBC [0-2 /HPF] 7 /HPF *HI* (06/14/2013 09:45:34) UA Bacteria [None Seen /HPF] Occasional /HPF *NA* (06/14/2013 09:45:34) UA Sq Epi [Few /LPF] Few /LPF *NA* (06/14/2013 09:45:34) UA Hyal Cast [0-2 /LPF] 2 /LPF (06/14/2013 09:45:34) UA Mucus [None Seen /LPF] Few /LPF *NA* (06/14/2013 09:45:34) CHEMISTRY Most recent to oldest [Reference 1 2 Range]: Sodium Lvl [135-145 mEq/L] 144 mEq/L 142 mEq/L (06/18/2013 06:30:00) (06/14/2013 06:00:00) Potassium Lvl [3.5-5.1 mEq/L] 3.6 mEq/L 4.0 mEq/L (06/18/2013 06:30:00) (06/14/2013 06:00:00) Chloride Lvl [95-109 mEq/L] 110 mEq/L 107 mEq/L *HI* (06/14/2013 06:00:00) (06/18/2013 06:30:00) CO2 [24-32 mEq/L] 25 mEq/L 24 mEq/L (06/18/2013 06:30:00) (06/14/2013 06:00:00) AGAP [10.0-20.0 mEq/L] 12.6 mEq/L 15.0 mEq/L (06/18/2013 06:30:00) (06/14/2013 06:00:00) Creatinine Lvl [0.5-1.4 mg/dL] 0.9 mg/dL 0.9 mg/dL (06/18/2013 06:30:00) (06/14/2013 06:00:00) eGFR 69 mL/min/1.73m2 1 69 mL/min/1.73m2 2 *NA* *NA* (06/18/2013 06:30:00) (06/14/2013 06:00:00) BUN [7-22 mg/dL] 12 mg/dL 12 mg/dL (06/18/2013 06:30:00) (06/14/2013 06:00:00) B/C Ratio [6-25] 13 13 (06/18/2013:30:00) (06/14/2013 06:00:00) Glucose Lvl [70-99 mg/dL] 90 mg/dL 3 97 mg/dL 4 (06/18/2013:30:00) (06/14/2013 06:00:00) Total Protein [6.4-8.4 g/dL] 6.1 g/dL 6.1 g/dL *LOW* *LOW* (06/18/2013:30:00) (06/14/2013 06:00:00) Albumin Lvl [3.5-5.0 g/dL] 2.9 g/dL 2.7 g/dL *LOW* *LOW* (06/18/2013:30:00) (06/14/2013 06:00:00) Globulin [2.0-4.0 g/dL] 3.2 g/dL 3.4 g/dL (06/18/2013 06:30:00) (06/14/2013 06:00:00) A/G Ratio [0.7-1.6] 0.9 0.8 (06/18/2013:30:00) (06/14/2013 06:00:00) Calcium Lvl [8.5-10.5 mg/dL] 8.2 mg/dL 8.2 mg/dL *LOW* *LOW* (06/18/2013:30:00) (06/14/2013 06:00:00) ALT [0-65 unit/L] 21 unit/L 17 unit/L (06/18/2013 06:30:00) (06/14/2013 06:00:00) AST [0-37 unit/L] 12 unit/L 17 unit/L (06/18/2013 06:30:00) (06/14/2013 06:00:00) Alk Phos [39-136 unit/L] 73 unit/L 78 unit/L (06/18/2013 06:30:00) (06/14/2013 06:00:00) Bili Total [0.2-1.3 mg/dL] 0.3 mg/dL 0.3 mg/dL (06/18/2013 06:30:00) (06/14/2013 06:00:00) Vanco Tr TND 0130 *NA* (06/15/2013 05:30:00) Vanco Tr 11.2 ug/ml 5 *NA* (06/15/2013 05:30:00) 1Result Comment: The eGFR is calculated using [...] eGFR should be multiplied by the estimated BMI.2Result Comment: The eGFR is calculated using the [...] eGFR should be multiplied by the estimated BMI.3Interpretive Data: Adult reference range values reflect the clinical guidelines of the [place] [employer].4Interpretive Data: Adult reference range values reflect the clinical guidelines of the [place] [employer].5Interpretive Data: Therapeutic Range: Trough: 10 - 20 ug/mL Peak: 20 - 40 ug/mL Potential Toxicity: >80 ug/mLHEMATOLOGY Most recent to oldest [Reference 1 2 Range]: WBC [3.7-10.4 K/CMM] 6.1 K/CMM 6.6 K/CMM (06/18/2013 06:30:00) (06/14/2013 06:00:00) RBC [4.20-5.40 M/CMM] 3.36 M/CMM 3.33 M/CMM *LOW* *LOW* (06/18/2013 06:30:00) (06/14/2013 06:00:00) Hgb [12.0-16.0 g/dL] 9.6 g/dL 9.6 g/dL *LOW* *LOW* (06/18/2013 06:30:00) (06/14/2013 06:00:00) Hct [36.0-48.0 %] 28.9 % 28.5 % *LOW* *LOW* (06/18/2013 06:30:00) (06/14/2013 06:00:00) MCV [81.0-99.0 fL] 86.0 fL 85.6 fL (06/18/2013 06:30:00) (06/14/2013 06:00:00) MCH [27.0-31.0 pg] 28.8 pg 28.9 pg (06/18/2013 06:30:00) (06/14/2013 06:00:00) MCHC [32.0-36.0 g/dL] 33.5 g/dL 33.8 g/dL (06/18/2013 06:30:00) (06/14/2013 06:00:00) RDW [11.5-14.5 %] 16.4 % 16.0 % *HI* *HI* (06/18/2013 06:30:00) (06/14/2013 06:00:00) Platelet [133-450 K/CMM] 221 K/CMM 196 K/CMM (06/18/2013 06:30:00) (06/14/2013 06:00:00) MPV [7.4-10.4 fL] 9.6 fL 9.8 fL (06/18/2013 06:30:00) (06/14/2013 06:00:00) Segs [45.0-75.0 %] 47.1 % 57.0 % (06/18/2013 06:30:00) (06/14/2013 06:00:00) Lymphocytes [20.0-40.0 %] 33.5 % 24.6 % (06/18/2013 06:30:00) (06/14/2013 06:00:00) Monocytes [2.0-12.0 %] 7.7 % 8.6 % (06/18/2013 06:30:00) (06/14/2013 06:00:00) Eosinophils [0.0-4.0 %] 10.4 % 9.1 % *HI* *HI* (06/18/2013 06:30:00) (06/14/2013 06:00:00) Basophils [0.0-1.0 %] 1.3 % 0.7 % *HI* (06/14/2013 06:00:00) (06/18/2013 06:30:00) Segs-Bands # [1.5-8.1 K/CMM] 2.9 K/CMM 3.8 K/CMM (06/18/2013 06:30:00) (06/14/2013 06:00:00) Lymphocytes # [1.0-5.5 K/CMM] 2.0 K/CMM 1.6 K/CMM (06/18/2013 06:30:00) (06/14/2013 06:00:00) Monocytes # [0.0-0.8 K/CMM] 0.5 K/CMM 0.6 K/CMM (06/18/2013 06:30:00) (06/14/2013 06:00:00) Eosinophils # [0.0-0.5 K/CMM] 0.6 K/CMM 0.6 K/CMM *HI* *HI* (06/18/2013 06:30:00) (06/14/2013 06:00:00) Basophils # [0.0-0.2 K/CMM] 0.1 K/CMM 0.0 K/CMM (06/18/2013 06:30:00) (06/14/2013 06:00:00) Sed Rate [0-20 mm/hr] 70 mm/hr *HI* (06/18/2013 06:30:00) Microbiology Reports PROCEDURE:Culture: Urine STATUS: Auth (Verified) BODY SITE: COLLECTED DATE/TIME: 06/14/2013 09:45:00 SOURCE: Urine, Catheterized FREE TEXT SOURCE: FINAL REPORTS Final ReportNo GrowthPRELIMINARY REPORTS Preliminary ReportNo Growth; Holding
--- OUTSIDE RECORDS SUMMARY | 2018-01-01 12:38 | XMS REPORT | Summary of Care ---
:1950 Author Organization [facility] Address [address] [place] [id number]- Encounter [facility](SANDOR) [phone] Date(s): 01/04/16 - 01/04/[address] [address]- Discharge Disposition: Home or Self Care Attending Physician: Valente Mcknight MD Admitting Physician: Valente Mcknight MD Vital Signs Most recent to oldest [Reference 1 2 3 Range]: Height 152.4 cm (01/03/16 2:54 AM) Temperature Oral [96.4-99.1 DegF] 98.5 DegF 98.3 DegF 98.6 DegF (01/04/16 4:00 PM) (01/04/16 12:09 PM) (01/04/16 8:27 AM) Blood Pressure [90-140/60-90 135/84 mmHg 135/74 mmHg 128/71 mmHg mmHg] (01/04/16 4:00 PM) (01/04/16 12:09 PM) (01/04/16 8:27 AM) Respiratory Rate [14-20 BRMIN] 18 BRMIN 16 BRMIN 18 BRMIN (01/04/16 4:00 PM) (01/04/16 12:09 PM) (01/04/16 8:27 AM) Peripheral Pulse Rate [60-100 84 bpm 78 bpm 77 bpm bpm] (01/04/16 4:00 PM) (01/04/16 12:09 PM) (01/04/16 8:27 AM) Weight 105.625 kg (01/03/16 2:54 AM) Body Mass Index 45.48 m2 (01/03/16 2:54 AM) Problem List Condition Effective Dates Status Health Status Informant [D]Abdominal pain(Confirmed) 09/10/11 Active AF - Atrial fibrillation(Confirmed) 09/14/11 Active Central line insertion(Confirmed) 09/11/11 Active Cholecystectomy(Confirmed) Active Cholecystectomy(Confirmed) Active Depression(Confirmed) Resolved Endotracheal intubation(Confirmed) 09/11/11 Active Gastric stapling(Confirmed) Active Hernia repair(Confirmed) 09/09/11 Active Hernia repair(Confirmed) Resolved HTN - Hypertension(Confirmed) Active Hypothyroidism(Confirmed) Resolved Idiopathic hypotension(Confirmed) Active Low blood pressure(Confirmed) 09/10/11 Active Lysis of adhesions(Confirmed) 09/09/11 Active Panniculectomy(Confirmed) 09/09/11 Active PUD - Peptic ulcer Active disease(Confirmed) Recurrent ventral hernia(Confirmed) 09/09/11 Active Small bowel obstruction(Confirmed) Resolved Allergies, Adverse Reactions, Alerts Substance Reaction Severity Status Adhesive Tape MO^Moderate Active Demerol HCl Active NKFA Active Medications acetaminophen-hydrocodone 325 mg-7.5 mg oral tablet 1 tab, PO, Q6H, PRN Pain, # 60 tab, 0 Refill(s) Start Date: 01/03/16 Stop Date: 01/04/16 Status: DiscontinuedBD Normal Saline Flush 5 mL, Route: IVP, Drug Form: INJ, PRN, PRN Line Flush, Start date: 01/03/16 13: 35:00 CDT, Duration: 30 day, Stop date: 02/02/16 13:34:00 CDT Notes: (Same as: BD Posiflush) Start Date: 01/03/16 Stop Date: 01/04/16 Status: DiscontinuedBD Normal Saline Flush 10 mL, Route: IVP, Drug Form: INJ, PRN, PRN Line Flush, Start date: 01/03/16 13: 57:00 CDT, Duration:30 day, Stop date: 02/02/16 13:56:00 CDT Notes: (Same as: BD Posiflush) Start Date: 01/03/16 Stop Date: 01/04/16 Status: DiscontinuedBD Normal Saline Flush 5 mL, Route: IVP, Drug Form: INJ, PRN, PRN Line Flush, Start date: 01/03/16 13: 56:00 CDT, Duration: 30 day, Stop date: 02/02/16 13:55:00 CDT Notes: (Same as: BD Posiflush) Start Date: 01/03/16 Stop Date: 01/04/16 Status: DiscontinuedBD Normal Saline Flush 10 mL, Route: IVP, Drug Form: INJ, PRN, PRN Line Flush, Start date: 01/03/16 13: 35:00 CDT, Duration:30 day, Stop date: 02/02/16 13:34:00 CDT Notes: (Same as: BD Posiflush) Start Date: 01/03/16 Stop Date: 01/04/16 Status: DiscontinuedBenadryl 25 mg, 0.5 mL, Route: IVP, Drug form: INJ, ONCE, Dosing Weight 105.625, kg, PRN Insomnia, Start date: 01/03/16 21:02:00 CDT Notes: (Same as: Benadryl) Start Date: 01/03/16 Stop Date: 01/03/16 Status: Completedbisacodyl 10 mg, 2 tab, Route: PO, Drug form: ECTAB, Daily, Dosing Weight 105.625, kg, PRN Constipation, Startdate: 01/04/16 15:49:00 CDT, Duration: 30 day, Stop date : 02/03/16 15:48:00 CDT Start Date: 01/04/16 Stop Date: 01/04/16 Status: Discontinuedbisacodyl 5 mg oral enteric coated tablet 10 mg=2 tab, PO, Daily, PRN Constipation, # 20 tab, 0 Refill(s) Start Date: 01/03/16 Stop Date: 01/13/16 Status: OrderedbuPROPion 150 mg, 1 tab, Route: PO, Drug form: ERTAB, Daily, Dosing Weight 105.625, kg, Start date: 01/05/16 9:00:00 CDT, Duration: 30 day, Stop date: 02/03/16 9:00:00 CDT Start Date: 01/05/16 Stop Date: 01/04/16 Status: CanceledbuPROPion 150 mg, PO, 0 Refill(s) Start Date: 01/03/16 Status: OrderedChloraseptic 1.4% spray 1 spray, Route: TOP, Daily, Drug form: SPRY, PRN Sore Throat, Start date: 20:57:00 CDT, Duration: 30 day, Stop date: 02/02/16 20:56:00 CDT Notes: Chloraseptic [place](Same as: Chloraseptic, Sore Throat Hastings)WASTE: F/P - Black; E - MunicipalTrash Bin Start Date: 01/03/16 Stop Date: 01/04/16 Status: Discontinuedcitalopram 60 mg, PO, Daily, 0 Refill(s) Start Date: 01/03/16 Status: Orderedcitalopram 60 mg, 3 tab, Route: PO, Drug form: TAB, Daily, Dosing Weight 105.625, kg, Start date: 01/05/16 9:00:00 CDT, Duration: 30 day, Stop date: 02/03/16 9:00:00 CDT Notes: (Same As: CeleXA) Start Date: 01/05/16 Stop Date: 01/04/16 Status: CanceledclonazePAM 0.5 mg, 1 tab, Route: PO, Drug form: TAB, TID, Dosing Weight 105.625, kg, Start date: 01/04/16 9:00:00 CDT, Duration: 30 day, Stop date: 02/02/16 17:00:00 CDT Notes: (Same As: KlonoPIN) Start Date: 01/04/16 Stop Date: 01/04/16 Status: DiscontinuedclonazePAM 0.5 mg oral tablet 0.5 mg=1 tab, PO, Q6H, PRN Anxiety, 0 Refill(s) Start Date: 01/03/16 Stop Date: 01/04/16 Status: DiscontinuedclonazePAM 0.5 mg oral tablet 0.5 mg=1 tab, PO, BID, PRN Anxiety, # 90 tab, 0 Refill(s) Start Date: 01/03/16 Status: XueejxnB4M 1/2NS + KCL 20mEq/L 1000ml (Premix) 1,000 mL 1,000 mL, Rate: 75 ml/hr, Infuse over: 13.3 hr, Route: IV, Dosing Weight 105.625 kg, Total Volume: 1,000, Start date: 01/03/16 13:31:00 CDT, Stop date: 02/02/16 13:30:00 CDT Notes: PREMIX IV - Do Not AlterWASTE: F/P - Sink; E - Municipal Trash Bin Start Date: 01/03/16 Stop Date: 01/04/16 Status: Discontinuedenoxaparin 40 mg, 0.4 mL, Route: SUB-Q, Drug form: INJ, [id number], Dosing Weight 105.625, kg , Consider for obesepatients, Start date: 01/03/16 4:00:00 CDT, Duration: 30 day , Stop date: 02/01/16 16:00:00 CDT Notes: (Same as: Lovenox) Start Date: 01/03/16 Stop Date: 01/04/16 Status: Discontinuedgabapentin 300 mg oral capsule 300 mg, 1 cap, Route: PO, Drug form: CAP, QID, Dosing Weight 105.625, kg, Start date: 01/04/16 17:00:00 CDT, Duration: 30 day, Stop date: 02/03/16 13:00:00 CDT Notes: (Same as: Neurontin) Start Date: 01/04/16 Stop Date: 01/04/16 Status: Discontinuedgabapentin 300 mg oral capsule 300 mg=1 cap, PO, QID, 0 Refill(s) Start Date: 01/03/16 Status: OrderedhydrOXYzine pamoate 25 mg oral capsule 25 mg=1 cap, PO, Bedtime, PRN Insomnia, 0 Refill(s) Start Date: 01/03/16 Status: Orderedlidocaine 1% 5 mL, Route: INTRADERM, Drug Form: INJ, Dosing Weight 105.625, kg, ONCALL, Start date: 01/03/16 14:00:00 CDT, Duration: 30 day, Stop date: 02/02/16 13:59: 00 CDT Notes: Preservative free. (Same as: Xylocaine MPF) Start Date: 01/03/16 Stop Date: 01/04/16 Status: Discontinuedmeloxicam 7.5 mg oral tablet 7.5 mg=1 tab, PO, Daily, # 30 tab, 0 Refill(s) Start Date: 01/03/16 Stop Date: 01/04/16 Status: Discontinuedmorphine Sulfate 10 mg, 1 mL, Route: IM, Drug form: INJ, ONCE, Dosing Weight 105.625, kg, Priority: STAT, Start date:01/03/16 13:26:00 CDT, Stop date: 01/03/16 13:26:00 CDT Notes: (Same as:MORPhine Sulfate) Start Date: 01/03/16 Stop Date: 01/03/16 Status: Completedmorphine Sulfate 4 mg, 1 mL, Route: IVP, Drug form: INJ, Q4H, Dosing Weight 105.625, kg, PRN Pain Score 7-10, Start date: 01/03/16 3:12:00 CDT, Stop date: 02/02/16 3:11:00 CDT Notes: (Same as:MORPhine Sulfate) Start Date: 01/03/16 Stop Date: 01/04/16 Status: Discontinuedondansetron 4 mg, 2 mL, Route: IVP, Drug form: INJ, Q6H, Dosing Weight 105.625, kg, PRN Nausea & Vomiting, Start date: 01/03/16 3:12:00 CDT, Duration: 30 day, Stop date: 02/02/16 3:11:00 CDT Notes: (Same as: Mario) MEDICATION WASTE Product Size: 4 mgProduct Wasted: ___ mg Start Date: 01/03/16 Stop Date: 01/04/16 Status: DiscontinuedPepcid 20 mg, 2 mL, Route: IVP, Drug form: INJ, Q12H, Start date: 01/03/16 9:00:00 CDT , Duration: 30 day, Stop date: 02/01/16 21:00:00 CDT Notes: (Same as: Pepcid)Can be dilute in 5-10cc NS IVP: Slow IV push over at least 2 minutes. Start Date: 01/03/16 Stop Date: 01/04/16 Status: DiscontinuedProtonix 40 mg, Route: IVP, Daily, Dosing Weight 105.625, kg, Patient is NPO, Start date : 01/03/16 9:00:00 CDT, Duration: 30 day, Stop date: 02/01/16 9:00:00 CDT Start Date: 01/03/16 Stop Date: 01/03/16 Status: DeletedSaline Flush 0.9% 10 mL, Route: IVP, Drug Form: INJ, Dosing Weight 105.625, kg, Q8H, Start date: 01/03/16 16:00:00 CDT, Duration: 30 day, Stop date: 02/02/16 8:00:00 CDT Notes: (Same as: BD Posiflush) Start Date: 01/03/16 Stop Date: 01/04/16 Status: DiscontinuedSaline Flush 0.9% 10 mL, Route: IVP, Drug Form: INJ, Dosing Weight 105.625, kg, PRN, PRN Line Flush, Start date: 01/03/16 13:30:00 CDT, Duration: 30 day, Stop date: 02/02/16 13:29:00 CDT Start Date: 01/03/16 Stop Date: 01/03/16 Status: DeletedSaline Flush 0.9% 10 mL, Route: IVP, Drug Form: INJ, Dosing Weight 105.625, kg, Q8H, Start date: 01/03/16 16:00:00 CDT, Duration: 30 day, Stop date: 02/02/16 8:00:00 CDT Start Date: 01/03/16 Stop Date: 01/03/16 Status: DeletedSaline Flush 0.9% 10 mL, Route: IVP, Drug Form: INJ, Dosing Weight 105.625, kg, PRN, PRN Line Flush, Start date: 01/03/16 13:52:00 CDT, Duration: 30 day, Stop date: 02/02/16 13:51:00 CDT Start Date: 01/03/16 Stop Date: 01/03/16 Status: DeletedSaline Flush 0.9% 10 ml, Route: IVP, Drug Form: INJ, Dosing Weight 105.625, kg, PRN, PRN Line Flush, Start date: 01/03/16 3:12:00 CDT, Duration: 30 day, Stop date: 02/02/16 3 :11:00 CDT Notes: (Same as: BD Posiflush) Start Date: 01/03/16 Stop Date: 01/03/16 Status: Discontinuedsodium chloride 0.9% 1000 ml INJ 1,000 mL 1,000 mL, Rate: 125 ml/hr, Infuse over: 8 hr, Route: IV, Dosing Weight 105.625 kg, Total Volume: 1,000, Start date: 01/03/16 3:12:00 CDT, Duration: 30 day, Stop date: 02/02/16 3:11:00 CDT Start Date: 01/03/16 Stop Date: 01/03/16 Status: DiscontinuedSodium Chloride 0.9% IV 25 mL, Route: IVP, Start date: 01/03/16 13:57:00 CDT, Duration: 30 day, Stop date: 02/02/16 13:56:00CDT, PRN Line Flush Start Date: 01/03/16 Stop Date: 01/04/16 Status: DiscontinuedSodium Chloride 0.9% IV 25 mL, Route: IVP, Start date: 01/03/16 13:35:00 CDT, Duration: 30 day, Stop date: 02/02/16 13:34:00CDT, PRN Line Flush Start Date: 01/03/16 Stop Date: 01/04/16 Status: DiscontinuedSynthroid 50 microgram, 1 tab, Route: PO, Drug form: TAB, Daily, Dosing Weight 105.625, kg , Start date: 01/05/16 9:00:00 CDT, Duration: 30 day, Stop date: 02/03/16 9:00: 00 CDT Notes: Take 1 hour before or 2 hours after meal; Enteral feeds may interefere with the absorption ofthis medication.(Same as:Levothroid, Synthroid) Start Date: 01/05/16 Stop Date: 01/04/16 Status: Canceledtizanidine 4 mg, 1 tab, Route: PO, Drug form: TAB, Q12H, Dosing Weight 105.625, kg, Start date: 01/04/16 21:00:00 CDT, Duration: 30 day, Stop date: 02/03/16 9:00:00 CDT Notes: (Same As: Zanaflex) Start Date: 01/04/16 Stop Date: 01/04/16 Status: Discontinuedtizanidine 4 mg oral tablet 4 mg=1 tab, PO, Q12H, 0 Refill(s) Start Date: 01/04/16 Status: Orderedtizanidine 4 mg oral tablet 8 mg=2 tab, PO, Q8H, # 180 tab, 0 Refill(s) Start Date: 01/03/16 Stop Date: 01/04/16 Status: Discontinuedtolterodine 4 mg, 1 cap, Route: PO, Drug form: CAP, Daily, Dosing Weight 105.625, kg, Start date: 01/05/16 9:00:00 CDT, Duration: 30 day, Stop date: 02/03/16 9:00:00 CDT Start Date: 01/05/16 Stop Date: 01/04/16 Status: Canceledtolterodine 4 mg oral capsule, extended release 4 mg=1 cap, PO, Daily, # 30 cap, 1 Refill(s) Start Date: 01/03/16 Stop Date: 02/02/16 Status: Orderedtrazodone 100 mg, 2 tab, Route: PO, Drug form: TAB, Bedtime, Dosing Weight 105.625, kg, Start date: 01/04/16 21:00:00 CDT, Duration: 30 day, Stop date: 02/02/16 21:00: 00 CDT Notes: (Same As: Desyrel) Start Date: 01/04/16 Stop Date: 01/04/16 Status: Discontinuedtrazodone 100 mg oral tablet 100 mg=1 tab, PO, Bedtime, # 30 tab, 0 Refill(s) Start Date: 01/03/16 Stop Date: 02/02/16 Status: OrderedTylenol 650 mg, 20.3 mL, Route: PO, Drug form: LIQ, Q4H, Dosing Weight 105.625, kg, PRN Headache 1-5, Start date: 01/04/16 2:51:00 CDT, Duration: 30 day, Stop date: 12/11 2:50:00 CDT Notes: Max [id number]=1339po/day (4 gm/day). (Same as: Tylenol) Start Date: 01/04/16 Stop Date: 01/04/16 Status: DiscontinuedTylenol 650 mg, 2 tab, Route: PO, Drug form: TAB, ONCE, Dosing Weight 105.625, kg, PRN Headache 1-5, Start date: 01/03/16 22:02:00 CDT, Stop date: 02/02/16 22:01:00 CDT Notes: Do not exceed 4 gm/day. (Same as: Tylenol) Start Date: 01/03/16 Stop Date: 01/03/16 Status: Completed Results ELECTROLYTES Most recent to oldest [Reference Range]: 1 2 Sodium Lvl [135-145 mEq/L] 145 mEq/L 142 mEq/L (01/04/16 3:05 AM) (01/03/16 5:49 AM) Potassium Lvl [3.5-5.1 mEq/L] 4.0 mEq/L 4.3 mEq/L (01/04/16 3:05 AM) (01/03/16 5:49 AM) Chloride Lvl [95-109 mEq/L] 108 mEq/L 102 mEq/L (01/04/16 3:05 AM) (01/03/16 5:49 AM) CO2 [24-32 mEq/L] 30 mEq/L 30 mEq/L (01/04/16 3:05 AM) (01/03/16 5:49 AM) AGAP [10.0-20.0 mEq/L] 11.0 mEq/L 14.3 mEq/L (01/04/16 3:05 AM) (01/03/16 5:49 AM) CHEM PANEL Most recent to oldest [Reference Range]: 1 2 Creatinine Lvl [0.50-1.40 mg/dL] 1.05 mg/dL 1.29 mg/dL (01/04/16 3:05 AM) (01/03/16 5:49 AM) eGFR 57 mL/min/1.73m2 1 44 mL/min/1.73m2 2 *NA* *NA* (01/04/16 3:05 AM) (01/03/16 5:49 AM) BUN [7-22 mg/dL] 18 mg/dL 22 mg/dL (01/04/16 3:05 AM) (01/03/16 5:49 AM) B/C Ratio [6-25] 17 (01/03/16 5:49 AM) Glucose Lvl [70-99 mg/dL] 115 mg/dL 124 mg/dL *HI* *HI* (01/04/16 3:05 AM) (01/03/16 5:49 AM) Total Protein [6.4-8.4 g/dL] 6.3 g/dL *LOW* (01/03/16 5:49 AM) Albumin Lvl [3.5-5.0 g/dL] 3.5 g/dL (01/03/16 5:49 AM) Globulin [2.7-4.2 g/dL] 2.8 g/dL (01/03/16 5:49 AM) A/G Ratio [0.7-1.6] 1.2 (01/03/16 5:49 AM) Calcium Lvl [8.5-10.5 mg/dL] 7.4 mg/dL 8.3 mg/dL *LOW* *LOW* (01/04/16 3:05 AM) (01/03/16 5:49 AM) ALT [0-65 unit/L] 124 unit/L *HI* (01/03/16 5:49 AM) AST [0-37 unit/L] 148 unit/L *HI* (01/03/16 5:49 AM) Alk Phos [39-136 unit/L] 56 unit/L (01/03/16 5:49 AM) Bili Total [0.2-1.3 mg/dL] 1.0 mg/dL (01/03/16 5:49 AM) 1Result Comment: The eGFR is calculated using [...] eGFR should be multiplied by the estimated BMI.URINE AND STOOL Most recent to oldest [Reference Range]: 1 2 UA Turbidity [Clear] Marked *ABN* (01/03/16 3:42 AM) UA Color Nimco *NA* (01/03/16 3:42 AM) UA pH [5.0-8.0] 5.0 (01/03/16 3:42 AM) UA Spec Grav [<=1.030] 1.026 (01/03/16 3:42 AM) UA Glucose [Negative mg/dL] Negative mg/dL *NA* (01/03/16 3:42 AM) UA Blood [Negative] Negative (01/03/16 3:42 AM) UA Ketones Negative *NA* (01/03/16 3:42 AM) UA Protein [Negative mg/dL] Negative mg/dL (01/03/16 3:42 AM) UA Urobilinogen [0.1-1.0 mg/dL] <=1.0 mg/dL *NA* (01/03/16 3:42 AM) UA Bili [Negative] Negative *NA* (01/03/16 3:42 AM) UA Leuk Est [Negative] Negative (01/03/16 3:42 AM) UA Nitrite [Negative] Negative (01/03/16 3:42 AM) UA WBC [0-5 /HPF] 2 /HPF (01/03/16 3:42 AM) UA RBC [0-2 /HPF] 2 /HPF (01/03/16 3:42 AM) UA Bacteria [None Seen /HPF] Occasional /HPF *NA* (01/03/16 3:42 AM) UA Sq Epi [Few /LPF] Many /LPF *ABN* (01/03/16 3:42 AM) UA Hyal Cast [0-2 /LPF] 15 /LPF *HI* (01/03/16 3:42 AM) UA Mucus [None Seen /LPF] Few /LPF *NA* (01/03/16 3:42 AM) HEMATOLOGY Most recent to oldest [Reference Range]: 1 2 WBC [3.7-10.4 K/CMM] 6.3 K/CMM 10.9 K/CMM (01/04/16 3:05 AM) *HI* (01/03/16 5:49 AM) RBC [4.20-5.40 M/CMM] 4.03 M/CMM 4.44 M/CMM *LOW* (01/03/16 5:49 AM) (01/04/16 3:05 AM) Hgb [12.0-16.0 g/dL] 12.3 g/dL 13.6 g/dL (01/04/16 3:05 AM) (01/03/16 5:49 AM) Hct [36.0-48.0 %] 36.7 % 40.2 % (01/04/16 3:05 AM) (01/03/16 5:49 AM) MCV [80.0-98.0 fL] 91.0 fL 90.6 fL (01/04/16 3:05 AM) (01/03/16 5:49 AM) MCH [27.0-31.0 pg] 30.4 pg 30.6 pg (01/04/16 3:05 AM) (01/03/16 5:49 AM) MCHC [32.0-36.0 g/dL] 33.4 g/dL 33.8 g/dL (01/04/16 3:05 AM) (01/03/16 5:49 AM) RDW [11.5-14.5 %] 14.9 % 14.3 % *HI* (01/03/16 5:49 AM) (01/04/16 3:05 AM) Platelet [133-450 K/CMM] 124 K/CMM 148 K/CMM *LOW* (01/03/16 5:49 AM) (01/04/16 3:05 AM) MPV [7.4-10.4 fL] 9.5 fL 9.0 fL (01/04/16 3:05 AM) (01/03/16 5:49 AM) Segs [45.0-75.0 %] 45.0 % 76.1 % (01/04/16 3:05 AM) *HI* (01/03/16 5:49 AM) Lymphocytes [20.0-40.0 %] 38.3 % 13.0 % (01/04/16 3:05 AM) *LOW* (01/03/16 5:49 AM) Monocytes [2.0-12.0 %] 10.7 % 8.3 % (01/04/16 3:05 AM) (01/03/16 5:49 AM) Eosinophils [0.0-4.0 %] 5.6 % 2.4 % *HI* (01/03/16 5:49 AM) (01/04/16 3:05 AM) Basophils [0.0-1.0 %] 0.4 % 0.2 % (01/04/16 3:05 AM) (01/03/16 5:49 AM) Segs-Bands # [1.5-8.1 K/CMM] 2.9 K/CMM 8.3 K/CMM (01/04/16 3:05 AM) *HI* (01/03/16 5:49 AM) Lymphocytes # [1.0-5.5 K/CMM] 2.4 K/CMM 1.4 K/CMM (01/04/16 3:05 AM) (01/03/16 5:49 AM) Monocytes # [0.0-0.8 K/CMM] 0.7 K/CMM 0.9 K/CMM (01/04/16 3:05 AM) *HI* (01/03/16 5:49 AM) Eosinophils # [0.0-0.5 K/CMM] 0.4 K/CMM 0.3 K/CMM (01/04/16 3:05 AM) (01/03/16 5:49 AM) Basophils # [0.0-0.2 K/CMM] 0.0 K/CMM 0.0 K/CMM (01/04/16 3:05 AM) (01/03/16 5:49 AM) RBC Morph Normal (01/04/16 3:05 AM) Plt Morph Normal (01/04/16 3:05 AM) PT [12.0-14.7 seconds] 13.8 seconds (01/03/16 5:49 AM) INR [0.85-1.17] 1.03 (01/03/16 5:49 AM) PTT [22.9-35.8 seconds] 30.7 seconds (01/03/16 5:49 AM) Immunizations Given and Recorded Vaccine Date Status Refusal Reason influenza virus vaccine, inactivated 06/13/13 Given pneumococcal 23-valent vaccine 06/13/13 Given Procedures Procedure Date Related Diagnosis Body Site Appendectomy Hernia repair Social History Social History Type Response Substance Abuse Use: None. Alcohol Never Smoking Status Never smoker; Exposure to Tobacco Smoke None; Cigarette Smoking Last 365 Days No; Reg Smoking Cessation Counseling Yes Assessment and Plan No data available for this section
--- OUTSIDE RECORDS SUMMARY | 2018-01-01 12:38 | XMS REPORT ---
:1950 [facility] Javier Cardenas [address] [place] [address] Care Team Providers Name Role Phone CATRACHITO SANDERS Unavailable Unavailable Problems This patient has no known problems. Allergies, Adverse Reactions, Alerts This patient has no known allergies or adverse reactions. Medications This patient has no known medications. Results Test Description Test Time Test Comments Text Results Atomic Results Result Comments URINALYSIS W/ MICROSCOPIC 2017-02-09 19:18:00 Test Item Value Reference Range Comments COLOR (BEAKER) (test sszs=184) Light Yellow CLARITY (BEAKER) (test wtgw=993) Clear SPECIFIC GRAVITY UA (BEAKER) (test owyt=630) 1.006 1.001-1.035 PH UA (BEAKER) (test bmsr=545) 6.5 5.0-8.0 PROTEIN UA (BEAKER) (test ohcm=548) Negative Negative GLUCOSE UA (BEAKER) (test bhuf=112) Negative Negative KETONES UA (BEAKER) (test ldzp=291) Negative Negative BILIRUBIN UA (BEAKER) (test szyp=225) Negative Negative BLOOD UA (BEAKER) (test glek=415) Negative Negative NITRITE UA (BEAKER) (test jona=542) Negative Negative LEUKOCYTE ESTERASE UA (BEAKER) (test swrr=268) Trace Negative UROBILINOGEN UA (BEAKER) (test fmzf=415) 0.2 mg/dL 0.2-1.0 RBC UA (BEAKER) (test jhjs=012) < /HPF WBC UA (BEAKER) (test vgfq=837) 2 /HPF SQUAMOUS EPITHELIAL (BEAKER) (test qasn=922) 1 /HPF SOURCE(BEAKER) (test qymp=9836) Urine, Voided CT, BRAIN, WITHOUT [id number] 18:57:00Reason for exam:->headacheWhat is the patient's sedation requirement?->No SedationFINAL REPORT CT Head without contrast CLINICAL HISTORY: Seizures new or progressiveheadache Episode of Care: Initial TECHNIQUE: Contiguous axial images through the head without contrast. This exam was performed according to the departmental dose optimization program which includes automated exposure control , adjustment of the mA and/or kV according [...] acute infarct, hemorrhage, or hydrocephalus. Signed: Devorah Smitheport Verified Date/Time: 02/09/2017 18 :57:54 Reading Location: [facility] Reading Room CREATINE KINASE (CK), TOTAL AND [id number] 17:04:00 Test Item Value Reference Range Comments CREATINE KINASE TOTAL (BEAKER) (test nbrs=816) 108 U/L 29-200 CREATINE KINASE-MB (BEAKER) (test tcmo=240) 0.8 ng/mL 0.0-6.6 CREATINE KINASE-MB INDEX (BEAKER) (test ojde=040) 0.7 % CK-MB Reference Range:<6.7 Normal6.7-10.0 Borderline>10.0 AbnormalTROPONIN [id number] 17:04:00 Test Item Value Reference Range Comments TROPONIN I (BEAKER) (test wbfx=747) < ng/mL 0.00-0.03 Troponin I (TnI) levels must be interpreted [...] failure, acidosis, acute neurological disease, and persistent tachyarrhythmia.PT/[id number] 17:02:00 Test Item Value Reference Range Comments PROTIME (BEAKER) (test tgxy=172) 14.1 seconds 11.7-14.7 INR (BEAKER) (test tcza=949) 1.1 <=5.9 PARTIAL THROMBOPLASTIN TIME (BEAKER) (test 29.8 seconds 22.5-36.0 fxqe=839) RECOMMENDED COUMADIN/WARFARIN INR THERAPY RANGESSTANDARD DOSE: 2.0 - 3.0 Includes: PROPHYLAXIS forvenous thrombosis, systemic embolization; TREATMENT for venous thrombosis and/or pulmonary embolus.HIGH RISK: Target INR is 2.5-3.5 for patients with mechanical heart valves.BASIC METABOLIC [id number] 16:58: 00 Test Item Value Reference Range Comments SODIUM (BEAKER) (test 142 meq/L 136-145 szko=853) POTASSIUM (BEAKER) (test 4.4 meq/L 3.5-5.1 vrbm=508) CHLORIDE (BEAKER) (test 107 meq/L 98-107 qeil=633) CO2 (BEAKER) (test 29 meq/L 22-29 offa=623) BLOOD UREA NITROGEN 12 mg/dL 7-21 (BEAKER) (test jrmd=823) CREATININE (BEAKER) (test 1.17 mg/dL 0.57-1.25 ozzx=255) GLUCOSE RANDOM (BEAKER) 96 mg/dL 70-105 (test ausj=883) CALCIUM (BEAKER) (test 9.1 mg/dL 8.4-10.2 htyc=817) EGFR (BEAKER) (test mL/min/1.73 sq m INSUFFICIENT CLINICAL DATA pppj=7486) TO CALCULATE ESTIMATED GFR. RAD, CHEST, PA OR AP, 1 [id number] 16:55:00Reason for exam:->chest painShould this be performed at the bedside?->YesFINAL REPORT TECHNIQUE: Frontal chest radiograph dated 02/09/2017. CLINICAL HISTORY : Chest pain COMPARISON STUDY: None IMPRESSION:Prominent interstitial lung markings are seen, anonspecific finding, due to either interstitial edema or pneumonitis. No focal consolidation. No pleural effusion or pneumothorax. Cardiomediastinal silhouette is normal in size. No pulmonary edema. Midline sternotomy ires are intact and well aligned. No fracture. Signed: Rabia Benjaminort Verified Date/Time: 02/09/2017 16:55:35 Reading Location: [facility] Radiology Reading Room CBC W/PLT COUNT & AUTO [id number] 16:34:00 Test Item Value Reference Range Comments WHITE BLOOD CELL COUNT (BEAKER) (test cegb=805) 6.3 K/ L 3.5-10.5 RED BLOOD CELL COUNT (BEAKER) (test zlde=038) 3.63 M/ L 3.93-5.22 HEMOGLOBIN (BEAKER) (test cogt=905) 11.4 GM/DL 11.2-15.7 HEMATOCRIT (BEAKER) (test gnmb=574) 35.5 % 34.1-44.9 MEAN CORPUSCULAR VOLUME (BEAKER) (test xaxj=935) 97.8 fL 79.4-94.8 MEAN CORPUSCULAR HEMOGLOBIN (BEAKER) (test 31.4 pg 25.6-32.2 tajg=537) MEAN CORPUSCULAR HEMOGLOBIN CONC (BEAKER) (test 32.1 GM/DL 32.2-35.5 jfhw=387) RED CELL DISTRIBUTION WIDTH (BEAKER) (test 13.4 % 11.7-14.4 hflj=430) PLATELET COUNT (BEAKER) (test kouw=510) 149 K/CU MM 150-450 MEAN PLATELET VOLUME (BEAKER) (test cskw=271) 11.5 fL 9.4-12.3 NUCLEATED RED BLOOD CELLS (BEAKER) (test 0 /100 WBC 0-0 ptlu=887) NEUTROPHILS RELATIVE PERCENT (BEAKER) (test 47 % gtwh=862) LYMPHOCYTES RELATIVE PERCENT (BEAKER) (test 39 % pnkh=219) MONOCYTES RELATIVE PERCENT (BEAKER) (test 9 % ebim=051) EOSINOPHILS RELATIVE PERCENT (BEAKER) (test 4 % iiwd=485) BASOPHILS RELATIVE PERCENT (BEAKER) (test 1 % vxqy=856) NEUTROPHILS ABSOLUTE COUNT (BEAKER) (test 2.95 K/ L 1.56-6.13 hkal=829) LYMPHOCYTES ABSOLUTE COUNT (BEAKER) (test 2.43 K/ L 1.18-3.74 pczm=380) MONOCYTES ABSOLUTE COUNT (BEAKER) (test 0.55 K/ L 0.24-0.36 lkdy=805) EOSINOPHILS ABSOLUTE COUNT (BEAKER) (test 0.26 K/ L 0.04-0.36 jong=333) BASOPHILS ABSOLUTE COUNT (BEAKER) (test 0.06 K/ L 0.01-0.08 hnqt=521) IMMATURE GRANULOCYTES-RELATIVE PERCENT (BEAKER) 0 % 0-1 (test beyj=1444) POCT-GLUCOSE [id number] 16:22:00 Test Item Value Reference Range Comments POC-GLUCOSE METER (BEAKER) 105 mg/dL 70-[address] [facility] [address] [facility] (test jymq=5962) [facility] [address]
[2018-01-01] MEDS ORDERED: CYCLOPENTOLATE 1% OPTH 2 ML ONE (12:40)
[2018-01-01] MEDS ORDERED: PHENYLEPHRINE 10% OPTH 5ML ONE (12:40)
[2018-01-01] MEDS ORDERED: NA CHLORIDE 0.9% 500 ML ONE (12:40)
[2018-01-01] MEDS ORDERED: EPINEPHRINE/PF 1 MG/ML AMP ONE (13:07)
[2018-01-01] MEDS ORDERED: DUOVISC 1 KIT OPTH ONE (13:08)
[2018-01-01] MEDS ORDERED: BALANCED SALT IRRIG PLAIN 500 ML BTL IRR ONE ×2 (13:08→14:03)
[2018-01-01] MEDS ORDERED: MOXIFLOXACIN HCL 10 DROPS/ML **OR USE OPTH ONE (13:08)
[2018-01-01] MEDS ORDERED: PHENYLEPHRINE 10% OPTH 5ML OPTH ONE ×2 (13:17→13:22)
[2018-01-01] MEDS ORDERED: CYCLOPENTOLATE 1% OPTH 2 ML OPTH ONE ×2 (13:17→13:22)
[2018-01-01] MEDS ORDERED: FENTANYL CITR 100 MCG/2 ML ONE (13:34)
[2018-01-01] MEDS ORDERED: PROPOFOL 200 MG/20 ML VIAL IV ONE (13:34)
[2018-01-01] MEDS ORDERED: MIDAZOLAM HCL 2 MG/2 ML INJ ONE ×2 (13:35→13:46)
[2018-01-01] MEDS ORDERED: LIDOCAINE 2% MPF 5 ML VIAL ONE (13:35)
[2018-01-01] MEDS ORDERED: DEXAMETHASONE 10 MG/ML VIAL ONE (14:05)
[2018-01-01] MEDS ORDERED: NS 0.9% VIAL 10 ML ONE (14:07)
--- NOTE | 2018-01-01 14:57 | P.BOP ---
Preoperative diagnosis: Nuclear sclerotic and cortical cataract OS Postoperative diagnosis: Same Primary procedure: Phacoemulsification with IOL OS Estimated blood loss: None Anesthesia: General Complications: None Implants: ZCB00 +22.0 Transferred to: Recovery Room Condition: Good
[2018-01-01] MEDS ORDERED: HYDROCODONE/APAP 7.5/325 MG TAB ONE (15:59)
--- NOTE | 2018-01-02 01:02 | OP ---
Date of Procedure: 01/01/2018 Surgeon: Annel Orr MD Anesthesiologist: 1. Ron Braun C.R.N.A. 2. Julio Cesar Jones M.D. Preoperative Diagnosis: Nuclear sclerotic cataract and cortical cataract, left eye. Operation Performed: Phacoemulsification with intraocular lens implant, left eye. Anesthesia: General. Complications: None. Description Of Procedure: In the operating room the patient was prepped and draped in the usual sterile fashion for ophthalmic surgery. A lid speculum was placed in the left eye. Two paracentesis sites were made superiorly and inferiorly in the limbal cornea. Viscoat was placed in the anterior chamber and a crescent blade was used to make a corneal groove and tunnel, and a keratome was used to enter the anterior chamber. Provisc was placed in the anterior chamber and a 360 degree capsulotomy was performed with a cystitome. The lens was hydrodissected with BSS and rotated freely. The lens was removed with a stop and chop technique. 3.89 phaco CDE was used to remove the lens. Residual cortex was removed with the irrigation and aspiration. Provisc was placed in the capsular bag. A ZCB00 +22.0 diopter lens was placed in the capsular bag without complications. Irrigation and aspiration was used to remove residual viscoelastic. The paracentesis sites were hydrated with BSS. The wound and paracentesis sites were inspected and found to be watertight. Vigamox 0.07 cc was placed intracamerally at the end of the procedure. The eye was irrigated with balanced salt solution. The eye was patched with a soft cotton patch and Kerns metal shield. The patient was returned to day surgery in good condition. Comments: The operation was done under general anesthesia because the patient has a tremor and uncontrollable movements. Discharge Instructions: The patient is discharged home in good condition and is to follow up with Dr. Orr in the morning. LAI/JORDON Voice ID: [id number] Report ID: [id number]
== END 2018-01-01 16:35 | disposition home or self-care (01) ==
LOC: OR 12:15
PROVIDERS: ATTEND Ophthalmology Retina Specialist
PROC: 08RK3JZ Replacement of Left Lens with Synthetic Substitute, Percutaneous Approach (ICD-10-PCS; principal; 2018-01-01 12:00)
DX: H25.12 Age-related nuclear cataract, left eye (principal); H25.012 Cortical age-related cataract, left eye; E11.9 Type 2 diabetes mellitus without complications; K21.9 Gastro-esophageal reflux disease without esophagitis; E07.9 Disorder of thyroid, unspecified; Z88.6 Allergy status to analgesic agent; Z91.048 Other nonmedicinal substance allergy status; Z82.49 Family history of ischemic heart disease and other diseases of the circulatory system; Z80.9 Family history of malignant neoplasm, unspecified; Z83.511 Family history of glaucoma
CPT/HCPCS: 36415; 66984; 80048; 85025; 93005; J0171; J1100; J2250 ×2; J3010

== ENCOUNTER 2018-03-05 08:38 | Day surgery (SDC) | payer OTHER ==
--- OUTSIDE RECORDS SUMMARY | 2018-03-05 08:42 | XMS REPORT | Clinical Summary ---
:1950 Author Organization [facility] Address [address] [place] [address] Phone Care Team Providers Name Role Phone [...] Active Medication Active Problems Not on file Social History Tobacco Use Types Packs/Day Years Used Date Never Smoker Smokeless Tobacco: Never Used Alcohol Use Drinks/Week oz/Week Comments No Sex Assigned at Date Recorded Not on file Last Filed Vital Signs Not on file Plan of Treatment Not on file Results Not on fileafter 03/04/2017
--- OUTSIDE RECORDS SUMMARY | 2018-03-05 08:57 | XMS REPORT | Continuity of Care Document ---
:1950 Author Organization Interface Problems Problem Status Onset Classification Date Comments Source Date Reported SBO Active 01/03/[address] DECONDITIONED Active 05/31/19 MH 14 [facility] ABDOMINAL PAIN, Active 05/30/19 HERNIA 14 [facility] AF - Atrial Active 09/14/19 Problem 01/07/2016 fibrillation 12 [facility] AF - Atrial Active 09/14/19 Problem 09/23/2011 fibrillation 12 [facility] Central line Active 09/11/19 Problem 01/07/2016 insertion 12 [facility] Endotracheal Active 09/11/19 Problem 01/07/2016 intubation 12 [facility] Central line Active 09/11/19 Problem 09/23/2011 insertion 12 [facility] Endotracheal Active 09/11/19 Problem 09/23/2011 intubation 12 [facility] [D]Abdominal pain Active 09/10/19 Problem 01/07/2016 12 [facility] Low blood pressure Active 09/10/19 Problem 01/07/2016 12 [facility] [D]Abdominal pain Active 09/10/19 Problem 09/23/2011 12 [facility] Low blood pressure Active 09/10/19 Problem 09/23/2011 12 [facility] Hernia repair Active 09/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/07/2016 12 [facility] Lysis of adhesions Active 09/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/07/2016 12 [facility] Panniculectomy Active 09/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/07/2016 12 [facility] Recurrent ventral Active 09/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/07/2016 hernia 12 [facility] Hernia repair Active 09/09/19 Problem 09/23/2011 12 [facility] Lysis of adhesions Active 09/09/19 Problem 09/23/2011 12 [facility] Panniculectomy Active 09/09/19 Problem 09/23/2011 12 [facility] Recurrent ventral Active 09/09/19 Problem 09/23/2011 hernia 12 [facility] INCISIONAL HERNIA Active 08/26/19 553.21 /[id number] [place] [address] 789.06/787.01 Active 06/24/[address] Cholecystectomy Active Problem 01/07/2016 [facility] Depression Resolved Problem 01/07/2016 [facility] Gastric stapling Active Problem 01/07/2016 [facility] HTN - Hypertension Active Problem 01/07/2016 [facility] Hypothyroidism Resolved Problem 01/07/2016 [facility] 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 [facility] PUD - Peptic ulcer Active Problem 01/07/2016 disease [facility] Small bowel Resolved Problem 01/07/2016 [facility] Cholecystectomy Active Problem 09/23/2011 [facility] Gastric stapling Active Problem 09/23/2011 [facility] HTN - Hypertension Active Problem 09/23/2011 [facility] Idiopathic Active Problem 09/23/2011 hypotension [facility] PUD - Peptic ulcer Active Problem 09/23/2011 disease [facility] INCISIONAL HERNIA Active [facility] VENTRAL HERNIA NOS Active [facility] ILLNESS, Active [facility] UNSPECIFIED [facility] PAIN IN LIMB Active [facility] Medications Medication Details Route Status Patient Ordering Order Source Instructions Provider Date tolterodine 4 mg, 1 cap, No Longer Route: PO, Drug Active 2015 [facility] form: CAP, [facility] Daily, Dosing Weight 105.625, kg, Start date: 01/05/16 9:00:00 CDT, Duration: 30 day, Stop date: 02/03/16 9:00:00 CDT Synthroid 50 microgram, 1 No Longer tab, Route: PO, Active 2015 [facility] Drug form: TAB, [facility] Daily, Dosing Weight 105.625, kg, Start date: 01/05/16 9:00:00 CDT, Duration: 30 day, Stop date: 02/03/16 9:00:00 CDTNotes: Take 1 hour before or 2 hours after meal; Enteral feeds may interefere with the absorption of this medication.(Jhonatan e as:Levothroid, Synthroid) Bupropion 150 mg, 1 tab, No Longer Route: PO, Drug Active 2015 [facility] form: ERTAB, [facility] Daily, Dosing Weight 105.625, kg, Start date: 01/05/16 9:00:00 CDT, Duration: 30 day, Stop date: 02/03/16 9:00:00 CDT Citalopram 60 mg, 3 tab, No Longer Route: PO, Drug Active 2015 [facility] form: TAB, [facility] Daily, Dosing Weight 105.625, kg, Start date: 01/05/16 9:00:00 CDT, Duration: 30 day, Stop date: 02/03/16 9:00:00 CDTNotes: (Same As: CeleXA) Trazodone 100 mg, 2 tab, Inactive Hydrochloride Route: PO, Drug 2015 [facility] 100 MG Oral form: TAB, [facility] Tablet Bedtime, Dosing Weight 105.625, kg, Start date: 01/04/16 21:00:00 CDT, Duration: 30 day, Stop date: 02/02/16 21:00:00 CDTNotes: (Same As: Desyrel) tizanidine 4 mg, 1 tab, Inactive Route: PO, Drug 2015 [facility] form: TAB, [facility] Q12H, Dosing Weight 105.625, kg, Start date: 01/04/16 21:00:00 CDT, Duration: 30 day, Stop date: 02/03/16 9:00:00 CDTNotes: (Same As: Zanaflex) tizanidine 4 mg 4 mg=1 tab, PO, Active oral tablet Q12H, 0 2015 [facility] Refill(s) [facility] gabapentin 300 300 mg, 1 cap, Inactive MG Oral Capsule Route: PO, Drug 2015 [facility] form: CAP, QID, [facility] Dosing Weight 105.625, kg, Start date: 01/04/16 17:00:00 CDT, Duration: 30 day, Stop date: 02/03/16 13:00:00 CDTNotes: (Same as: Neurontin) Bisacodyl 10 mg, 2 tab, Inactive Route: PO, Drug 2015 [facility] form: ECTAB, City Daily, Dosing Weight 105.625, kg, PRN Constipation, Start date: 01/04/16 15:49:00 CDT, Duration: 30 day, Stop date: 02/03/16 15:48:00 CDT Clonazepam 0.5 mg, 1 tab, Inactive Route: PO, Drug 2015 [facility] form: TAB, TID, [facility] Dosing Weight 105.625, kg, Start date: 01/04/16 9:00:00 CDT, Duration: 30 day, Stop date: 02/02/16 17:00:00 CDTNotes: (Same As: KlonoPIN) Tylenol 650 mg, 20.3 Inactive mL, Route: PO, 2015 [facility] Drug form: LIQ, [facility] Q4H, Dosing Weight 105.625, kg, PRN Headache 1-5, Start date: 01/04/16 2:51:00 CDT, Duration: 30 day, Stop date: 02/03/16 2:50:00 CDTNotes: Max acetaminophen=4 000mg/day (4 gm/day). (Same as: Tylenol) Tylenol 650 mg, 2 tab, Inactive Route: PO, Drug 2015 [facility] form: TAB, [facility] ONCE, Dosing Weight 105.625, kg, PRN Headache 1-5, Start date: 01/03/16 22:02:00 CDT, Stop date: 02/02/16 22:01:00 CDTNotes: Do not exceed 4 gm/day. (Same as: Tylenol) Benadryl 25 mg, 0.5 mL, Inactive Route: IVP, 2015 [facility] Drug form: INJ, [facility] ONCE, Dosing Weight 105.625, kg, PRN Insomnia, Start date: 01/03/16 21:02:00 CDTNotes: (Same as: Benadryl) phenol 1 spray, Route: No Longer TOP, Daily, Active 2015 [facility] Drug form: City SPRY, PRN Sore Throat, Start date: 01/03/16 20:57:00 CDT, Duration: 30 day, Stop date: 02/02/16 20:56:00 CDTNotes: Chloraseptic [place] (Same as: Chloraseptic, Sore Throat [place]) WASTE: F/P - Black; E - Municipal Trash Bin Saline Flush 10 mL, Route: No Longer 0.9% IVP, Drug Form: Active 2015 [facility] INJ, Dosing City Weight 105.625, kg, Q8H, Start date: 01/03/16 16:00:00 CDT, Duration: 30 day, Stop date: 02/02/16 8:00:00 CDTNotes: (Same as: BD Posiflush) Lidocaine 5 mL, Route: No Longer 01/02/ Hydrochloride INTRADERM, Drug Active 2015 [facility] 10 MG/ML Form: INJ, City Injectable Dosing Weight Solution 105.625, kg, ONCALL, Start date: 01/03/16 14:00:00 CDT, Duration: 30 day, Stop date: 02/02/16 13:59:00 CDTNotes: Preservative free. (Same as: Xylocaine MPF) Sodium Chloride 25 mL, Route: No Longer 01/02/ 0.9% IV IVP, Start Active 2015 [facility] date: 01/03/16 [facility] 13:57:00 CDT, Duration: 30 day, Stop date: 02/02/16 13:56:00 CDT, PRN Line Flush BD Normal 10 mL, Route: No Longer MH Saline Flush IVP, Drug Form: Active 2015 [facility] INJ, PRN, PRN [place] Line Flush, Start date: 01/03/16 13:57:00 CDT, Duration: 30 day, Stop date: 02/02/16 13:56:00 CDTNotes: (Same as: BD Posiflush) BD Normal 5 mL, Route: No Longer MH Saline Flush IVP, Drug Form: Active 2015 [facility] INJ, PRN, PRN [place] Line Flush, Start date: 01/03/16 13:56:00 CDT, Duration: 30 day, Stop date: 02/02/16 13:55:00 CDTNotes: (Same as: BD Posiflush) Saline Flush 10 mL, Route: Inactive 0.9% IVP, Drug Form: 2015 [facility] INJ, Dosing City Weight 105.625, kg, PRN, PRN Line Flush, Start date: 01/03/16 13:52:00 CDT, Duration: 30 day, Stop date: 02/02/16 13:51:00 CDT BD Normal 5 mL, Route: No Longer MH Saline Flush IVP, Drug Form: Active 2015 [facility] INJ, PRN, PRN [place] Line Flush, Start date: 01/03/16 13:35:00 CDT, Duration: 30 day, Stop date: 02/02/16 13:34:00 CDTNotes: (Same as: BD Posiflush) Sodium Chloride 25 mL, Route: No Longer 0.9% IV IVP, Start Active 2015 [facility] date: 01/03/16 [facility] 13:35:00 CDT, Duration: 30 day, Stop date: 02/02/16 13:34:00 CDT, PRN Line Flush D5W 1/2NS + KCL 1,000 mL, Rate: No Longer 20mEq/L 1000ml 75 ml/hr, Active 2015 [facility] (Premix) 1,000 Infuse over: City mL 13.3 hr, Route: IV, Dosing Weight 105.625 kg, Total Volume: 1,000, Start date: 01/03/16 13:31:00 CDT, Stop date: 02/02/16 13:30:00 CDTNotes: PREMIX IV - Do Not Alter WASTE: F/P - Sink; E - Municipal Trash Bin Saline Flush 10 mL, Route: Inactive 0.9% IVP, Drug Form: 2015 [facility] INJ, Dosing [facility] Weight 105.625, kg, PRN, PRN Line Flush, Start date: 01/03/16 13:30:00 CDT, Duration: 30 day, Stop date: 02/02/16 13:29:00 CDT Morphine 10 mg, 1 mL, Inactive Route: IM, Drug 2015 [facility] form: INJ, [facility] ONCE, Dosing Weight 105.625, kg, Priority: STAT, Start date: 01/03/16 13:26:00 CDT, Stop date: 01/03/16 13:26:00 CDTNotes: (Same as:MORPhine Sulfate) Pepcid 20 mg, 2 mL, No Longer Route: IVP, Active 2015 [facility] Drug form: INJ, [facility] Q12H, Start date: 01/03/16 9:00:00 CDT, Duration: 30 day, Stop date: 02/01/16 21:00:00 CDTNotes: (Same as: Pepcid) Can be dilute in 5-10cc NS IVP: Slow IV push over at least 2 minutes. Protonix 40 mg, Route: Inactive IVP, Daily, 2015 [facility] Dosing Weight [facility] 105.625, kg, Patient is NPO, Start date: 01/03/16 9:00:00 CDT, Duration: 30 day, Stop date: 02/01/16 9:00:00 CDT Enoxaparin 40 mg, 0.4 mL, No Longer Route: SUB-Q, Active 2015 [facility] Drug form: INJ, [facility] [id number], Dosing Weight 105.625, kg, Consider for obese patients, Start date: 01/03/16 4:00:00 CDT, Duration: 30 day, Stop date: 02/01/16 16:00:00 CDTNotes: (Same as: Lovenox) Citalopram 60 mg, PO, Active Daily, 0 2015 [facility] Refill(s) [facility] tolterodine 4 4 mg=1 cap, PO, Active mg oral Daily, # 30 2015 [facility] capsule, cap, 1 [facility] extended Refill(s) release gabapentin 300 300 mg=1 cap, Active MG Oral Capsule PO, QID, 0 2015 [facility] Refill(s) [facility] Hydroxyzine 25 mg=1 cap, Active Hydrochloride PO, Bedtime, 2016 [facility] 25 MG Oral PRN Insomnia, 0 [facility] Capsule Refill(s) Trazodone 100 mg=1 tab, Active Hydrochloride PO, Bedtime, # 2016 [facility] 100 MG Oral 30 tab, 0 [facility] Tablet Refill(s) tizanidine 4 mg 8 mg=2 tab, PO, No Longer oral tablet Q8H, # 180 tab, Active 2015 [facility] 0 Refill(s) [facility] meloxicam 7.5 7.5 mg=1 tab, No Longer mg oral tablet PO, Daily, # 30 Active 2015 [facility] tab, 0 [facility] Refill(s) Acetaminophen 1 tab, PO, Q6H, No Longer 325 MG / PRN Pain, # 60 Active 2015 [facility] Hydrocodone tab, 0 [facility] Bitartrate 7.5 Refill(s) MG Oral Tablet bisacodyl 5 mg 10 mg=2 tab, Active oral enteric PO, Daily, PRN 2016 [facility] coated tablet Constipation, # City 20 tab, 0 Refill(s) Bupropion 150 mg, PO, 0 Active Refill(s) 2015 [facility] clonazePAM 0.5 0.5 mg=1 tab, No Longer mg oral tablet PO, Q6H, PRN Active 2015 [facility] Anxiety, 0 City Refill(s) Saline Flush 10 ml, Route: Inactive 0.9% IVP, Drug Form: 2015 [facility] INJ, Dosing City Weight 105.625, kg, PRN, PRN Line Flush, Start date: 01/03/16 3:12:00 CDT, Duration: 30 day, Stop date: 02/02/16 3:11:00 CDTNotes: (Same as: BD Posiflush) Ondansetron 4 mg, 2 mL, No Longer Route: IVP, Active 2015 [facility] Drug form: INJ, City Q6H, Dosing Weight 105.625, kg, PRN Nausea & Vomiting, Start date: 01/03/16 3:12:00 CDT, Duration: 30 day, Stop date: 02/02/16 3:11:00 CDTNotes: (Same as: Zofran) MEDICATION WASTE Product Size: 4 mg Product Wasted: ___ mg Morphine 4 mg, 1 mL, No Longer Route: IVP, Active 2015 [facility] Drug form: INJ, City Q4H, Dosing Weight 105.625, kg, PRN Pain Score 7-10, Start date: 01/03/16 3:12:00 CDT, Stop date: 02/02/16 3:11:00 CDTNotes: (Same as:MORPhine Sulfate) Sodium Chloride 1,000 mL, Rate: Inactive 0.154 MEQ/ML 125 ml/hr, 2015 [facility] Injectable Infuse over: 8 City Solution hr, Route: IV, Dosing Weight 105.625 kg, Total Volume: 1,000, Start date: 01/03/16 3:12:00 CDT, Duration: 30 day, Stop date: 02/02/16 3:11:00 CDT Lidoderm 5% 1 patch, TOP, Active Estephania topical film Daily, Remove [address] [place] [address] (patch) after 12 hours, # 30 patch, 0 Refill(s), given to patientRemove after 12 hours citalopram 20 20 mg=1 tab, Active Ajmani MH mg oral tablet PO, BID-After 2013 Meals, # 60 tab, 0 Refill(s), given to patient rivastigmine =1 patch, TOP, Active Anigbogu 06/20/ MH 4.6 mg/24 hr Daily, # 30 2013 [facility] transdermal patch, 0 film, extended Refill(s) release mirtazapine 15 7.5 mg=0.5 tab, Active Anigbogu 06/20/ MH mg oral tablet PO, Bedtime, # 2013 30 tab, 0 Refill(s) Exelon 4.6 mg, 1 No Longer Raichman patch, Route: Active 2013 [facility] TOP, Drug form: ERFILM, Daily, Start date: 06/17/13 9:00:00, Duration: 30 day, Stop date: 07/16/13 9:00:00Same as Exelon "Remove old patch before application of new patch" Lidoderm 5% 1 patch, Route: No Longer Anigbogu topical film TOP, Daily, Active 2013 [facility] (patch) Drug form: FILM, Start date: [...] Longer Raichman Route: PO, Drug Active 2013 [facility] form: TAB, BID-After Meals, Start date: 06/17/13 8:30:00, Duration: 30 day, Stop date: 07/16/13 13:00:00(Same As: CeleXA) Remeron 7.5 mg, 0.5 No Longer Anigbogu MH tab, Route: PO, Active 2013 [facility] Drug form: TAB, Bedtime, Start date: 06/15/13 21:00:00, Duration: 30 day, Stop date: 07/14/13 21:00:00(Same as:Remeron) Singulair 10 mg, 1 tab, No Longer Anigbogu Route: PO, Drug Active 2013 [facility] form: TAB, Bedtime, Start date: 06/14/13 21:00:00, Duration: 30 day, Stop date: 07/13/13 21:00:00(Same as:Singulair) fluticasone 2 inhalation, No Longer Anigbogu nasal 0.05 Route: NASAL, Active 2013 [facility] mg/inh spray Drug Form: SPRY, BID, Start date: 06/14/13 9:00:00, Duration: 30 day, Stop date: 07/13/13 17:00:00(Same as: Flonase) Claritin 10 mg, 1 tab, No Longer Anigbogu Route: PO, Drug Active 2013 [facility] form: TAB, Daily, Start date: 06/14/13 9:00:00, Duration: 30 day, Stop date: 07/13/13 9:00:001 hr before meals (Same as: Claritin) polyethylene 17 gm, 1 pkt, No Longer Anigbogu glycol 3350 Route: PO, Drug Active 2013 [facility] form: PWDR, Daily, Dosing Weight 105.455, kg, Start date: 06/14/13 9:00:00, Duration: 30 day, Stop date: 07/13/13 9:00:00Dissolve in 8 oz of water or juice. (Same as: Miralax) Senokot 8.6 mg, 1 tab, No Longer Anigbogu Route: PO, Drug Active 2013 [facility] form: TAB, BID, Start date: 06/14/13 9:00:00, Duration: 30 day, Stop date: 07/13/13 17:00:00(Same as: Senokot) PROzac 40 mg, 2 cap, No Longer Anigbogu Route: NG, Drug Active 2013 [facility] form: CAP, Daily, Start date: 06/14/13 9:00:00, Duration: 30 day, Stop date: 07/13/13 9:00:00(Same as: Prozac, Saraf[place]) Mycelex Shaina 10 mg, 1 No Longer Anigbogu lozenge, Route: Active 2013 [facility] MUCOUS MEM, Drug form: WINSTON, TID, Start date: 06/14/13 8:00:00, Duration: 30 day, Stop date: 07/13/13 21:00:00(Same As: Mycelex Shaina) Levothroid 50 microgram, 1 No Longer Anigbogu tab, Route: PO, Active 2013 [facility] Drug form: TAB, [id number], Start date: 06/14/13 6:30:00, Duration: 30 day, Stop date: 07/13/13 6:30:00Take 1 hour before or 2 hours after meal; Enteral feeds may interefere with the absorption of this medication.(Jhonatan e as:Levothroid, Synthroid) vancomycin 750 mg, 150 mL, No Longer Anigbogu Route: IVPB, Active 2013 [facility] Drug form: SOLN, [id number], Start date: 06/14/13 3:00:00, Duration: 30 day, Stop date: 07/13/13 18:00:00Same as: Vancocin Lovenox 40 mg, 0.4 mL, No Longer Anigbogu Route: SUB-Q, Active 2013 [facility] Drug form: INJ, [id number], Start date: 06/13/13 23:00:00, Duration: 30 day, Stop date: 07/12/13 23:00:00(Same as: Lovenox) Restoril 15 mg, 1 cap, No Longer Anigbogu Route: PO, Drug Active 2013 [facility] form: CAP, Bedtime, PRN Sleep, Start date: 06/13/13 21:37:00, Duration: 30 day, Stop date: 07/13/13 21:36:00(Same As: Restoril) Ativan 1 mg, 2 tab, No Longer Anigbogu Route: PO, Drug Active 2013 [facility] form: TAB, Q4H, PRN Anxiety, Start date: 06/13/13 21:31:00, Stop date: 07/13/13 21:30:00(Same as: Ativan) acetaminophen-h 1 tab, Route: No Longer Anigbogu ydrocodone 325 PO, Drug Form: Active 2013 [facility] mg-5 mg oral TAB, Dosing tablet Weight 105.455, kg, Q4H, PRN Pain Score 1-3, Start date: 06/13/13 21:01:00, Duration: 30 day, Stop date: 07/13/13 21:00:00(Same as: [place] 325/5) Do not exceed 4gm/day of acetaminophen. acetaminophen 650 mg, 2 tab, No Longer Anigbogu Route: PO, Drug Active 2013 [facility] form: TAB, Q4H, Dosing Weight 105.455, kg, PRN Pain Score 1-3, Start date: 06/13/13 21:01:00, Duration: 30 day, Stop date: 07/13/13 21:00:00Do not exceed 4 gm/day. (Same as: Tylenol) Saline Flush 3 mL, Route: No Longer Anbogu 0.9% IVP, Drug Form: Active 2013 [facility] INJ, Dosing Weight 105.455, kg, Q8H, PRN Line Flush, Start date: 06/13/13 21:01:00, Duration: 30 day, Stop date: 07/13/13 21:00:00, Administer at least once every 8 hoursAdminister at least once every 8 hours(Same as: BD Posiflush) bisacodyl 10 mg, 1 supp, No Longer Anigbogu Route: WI, Drug Active 2013 [facility] form: SUPP, Bedtime, Dosing Weight 105.455, kg, PRN Constipation, Start date: 06/13/13 21:01:00, Duration: 30 day, Stop date: 07/13/13 21:00:00(Same As: Dulcolax, [place]-Lax) temazepam 15 mg 15 mg=1 cap, Active sEtephania oral capsule PO, Bedtime, 2013 [facility] Sleep, # 5 cap, 0 Refill(s) vancomycin 750 1,054.55 mg, Active Shanekai mg intravenous IV, Q24H, # 14 2013 [facility] injection bag, 0 Refill(s), called to pharmacy senna 8.6 mg 8.6 mg=1 tab, [facility], BID, # 36 2013 [facility] tab, 0 Refill(s) LORazepam 1 mg 1 mg=1 tab, PO, Active mani MH oral tablet Q4H, Anxiety, # 2014 [facility] 10 tab, 0 Refill(s) loratadine 10 10 mg=1 tab, [facility] PO, Daily, # 20 2013 [facility] tab, 0 Refill(s) fluticasone 100 microgram=2 [facility] nasal 0.05 inhalation, 2013 [facility] mg/inh spray NASAL, BID, # 1 ea, 0 Refill(s) enoxaparin 40 40 mg=0.4 mL, [facility] mg/0.4 mL SUB-Q, Q24H, # 2013 [facility] subcutaneous 30 mL, 0 solution Refill(s) clotrimazole 10 10 mg=1 Active [facility] mg oral lozenge lozenge, MUCOUS 2013 [facility] MEM, TID, # 90 lozenge, 0 Refill(s) clonazePAM 0.5 0.5 mg=1 tab, Active [facility] tablet PO, Daily, # 30 2013 [facility] tab, 0 Refill(s), called to pharmacy acetaminophen 650 mg=2 tab, [facility] mg oral PO, Q6H, Pain, 2013 [facility] tablet # 50 tab, 0 Refill(s), called to pharmacy acetaminophen-h 1 tab, PO, Q4H, Active [facility] ydrocodone 325 Pain, # 12 tab, 2014 [facility] mg-10 mg oral 0 Refill(s), tablet called to pharmacy tolterodine 4 4 mg=1 cap, PO, Active [facility] Daily, # 30 2013 [facility] capsule, cap, 0 extended Refill(s), release called to pharmacy Lovenox 40 mg, 0.4 mL, No Longer [facility] Route: SUB-Q, Active 2013 [facility] Drug form: INJ, Q24H, Start date: 06/11/13 23:00:00, Duration: 30 day, Stop date: 07/10/13 23:00:00(Same as: Lovenox) acetaminophen-h 1 tab, Route: No Longer ydrocodone 325 PO, Drug Form: Active 2013 [facility] mg-5 mg oral TAB, ONCALL, tablet PRN Pain, Start date: 06/11/13 18:45:00, Duration: 30 day, Stop date: 07/11/13 18:44:00(Same as: [place] 325/5) Do not exceed 4gm/day of acetaminophen. Claritin 10 mg, 1 tab, No Longer Route: PO, Drug Active 2013 [facility] form: TAB, Daily, Start date: 06/11/13 9:00:00, Duration: 30 day, Stop date: 07/10/13 9:00:001 hr before meals (Same as: Claritin) Senokot 8.6 mg, 1 tab, No Longer Route: PO, Drug Active 2013 [facility] form: TAB, BID, Start date: 06/11/13 9:00:00, Duration: 30 day, Stop date: 07/10/13 17:00:00(Same as: Senokot) Mycelex Shaina 10 mg, 1 No Longer lozenge, Route: Active 2013 [facility] MUCOUS MEM, Drug form: WINSTON, TID, Start date: 06/10/13 21:00:00, Duration: 30 day, Stop date: 07/10/13 12:00:00(Same As: Mycelex Shaina) Singulair 10 mg, 1 tab, No Longer Route: PO, Drug Active 2013 [facility] form: TAB, Bedtime, Start date: 06/10/13 21:00:00, Duration: 30 day, Stop date: 07/09/13 21:00:00(Same as:Singulair) acetaminophen-h 1 tab, Route: No Longer ydrocodone 325 PO, Drug Form: Active 2013 [facility] mg-10 mg oral TAB, Q4H, PRN tablet Pain, Start date: 06/10/13 20:32:00, Duration: 30 day, Stop date: 07/10/13 20:31:00Do not exceed 4gm/day of acetaminophen. (Same as: [place] 325/10) Ativan 1 mg, 1 tab, No Longer Shaneka Route: PO, Drug Active 2013 [facility] form: TAB, Q4H, PRN Anxiety, Start date: 06/10/13 20:32:00, Duration: 30 day, Stop date: 07/10/13 20:31:00(Same as: Ativan) potassium 20 mEq, 100 mL, Inactive cinthia chloride Route: IVPB, 2013 [facility] Drug form: INJ, Q2H, Start date: 06/09/13 21:00:00, Duration: 2 doses or times, Stop date: 06/09/13 23:00:00(Same as: KCL) Infuse no faster than 10 mEq/hr if given peripherally. fluticasone 2 inhalation, No Longer [place] nasal 0.05 Route: NASAL, Active 2013 [facility] mg/inh spray Drug Form: SPRY, BID, Start date: 06/08/13 9:00:00, Duration: 30 day, Stop date: 07/07/13 17:00:00(Same as: Flonase) Benadryl 25 mg, 0.5 mL, No Longer [place] Route: IV, Drug Active 2013 [facility] form: INJ, Q12H, Start date: 06/07/13 21:00:00, Stop date: 07/07/13 9:00:00(Same as: Benadryl) amino acids 5% 2,000 mL, Rate: No Longer cinthiai w/Lytes/D15W 75 ml/hr, Active 2013 [facility] 2000ml Infuse over: (clinimixE) 26.8 hr, [...] No Longer intravenous ml/hr, Route: Active 2013 [facility] IV, Drug Form: INJ, Daily, Start date: 06/07/13 21:00:00, Duration: 30 day, Stop date: 07/06/13 21:00:00(Same as: Intralipid, Liposyn) potassium 40 mEq, 200 mL, Inactive chloride Route: IVPB, 2013 [facility] Drug form: INJ, ONCE, Start date: 06/07/13 20:02:00, Stop date: 06/07/13 20:02:00(Same as: KCL) Infuse no faster than 10 mEq/hr if given peripherally. Lasix 40 mg, 4 mL, Inactive Route: IV, Drug 2013 [facility] form: INJ, ONCE, Start date: 06/07/13 20:01:00, Stop date: 06/07/13 20:01:00(Same as: Lasix) nystatin susp nystatin susp No Longer 30 ml+lidocaine 30 ml+lidocaine Active 2013 [facility] visc 30 ml visc 30 ml, 5 mL, Drug form: MISC, Route: S&SWALLOW, Q3H-WA, 06/07/13 20:00:00, Stop date: 07/07/13 17:00:00 Lovenox 100 mg, 1 mL, No Longer Route: SUB-Q, 2013 [facility] Drug form: INJ, [id number], Start date: 06/07/13 20:00:00, Duration: 30 day, Stop date: 07/06/13 20:00:00Nurse to ensure documentation of patient education per anticoagulation policy. (Same as: Lovenox) Diflucan 200 mg, 100 mL, No Longer Route: IVPB, Active 2013 [facility] Drug form: INJ, [id number], Start date: 06/07/13 20:00:00, Duration: 30 day, Stop date: 07/06/13 20:00:00(Same as: Diflucan) Do not refrigerate amino acids 1,000 mL, Rate: No Longer 4.25% 90 ml/hr, Active 2013 [facility] w/Lytes/D5W Infuse over: 1000ml 11.1 hr, Route: (clinimixE) IV, Dosing 1,000 mL Weight 105.455 kg, Total Volume: 1,000, Start date: 06/07/13 12:26:00, Stop date: 06/08/13 21:00:00Same as: ClinimixE vancomycin 750 mg, 150 mL, No Longer Route: IVPB, Active 2013 [facility] Drug form: SOLN, [id number], Start date: 06/06/13 15:00:00, Duration: 30 day, Stop date: 07/06/13 3:00:00Same as: Vancocin Maxipime + 2 gm, Route: No Longer Sodium Chloride IVPB, [id number], Active 2013 [facility] 0.9% IV 100 mL Start date: 06/06/13 14:00:00, Duration: 30 day, Stop date: 07/06/13 6:00:00(Same as: Maxipime) Tylenol 650 mg, 1 supp, No Longer albers Route: WI, Drug Active 2013 [facility] form: SUPP, Q4H, PRN Pain/Fever, Start date: 06/06/13 13:03:00, Stop date: 07/06/13 13:02:00Max acetaminophen=4 000 mg/day (4 gm/day). (Same as: Tylenol) Lasix 40 mg, 4 mL, Inactive [facility] Route: IV, Drug 2013 [facility] form: INJ, ONCALL, Start date: 06/06/13 13:00:00, Duration: 30 day, Stop date: 07/06/13 12:59:00(Same as: Lasix) Lasix 40 mg, 4 mL, Inactive [facility] Route: IV, Drug 2013 [facility] form: INJ, ONCE, Start date: 06/06/13 12:03:00, Stop date: 06/06/13 12:03:00(Same as: Lasix) potassium 40 mEq, 200 mL, Inactive [facility] chloride Route: IVPB, 2013 [facility] Drug form: INJ, ONCE, Start date: 06/06/13 12:03:00, Stop date: 06/06/13 12:03:00(Same as: KCL) Infuse no faster than 10 mEq/hr if given peripherally. Ativan 1 mg, 0.5 mL, No Longer Estephania Route: IV, Drug Active 2013 [facility] form: INJ, Q6H, Start date: 06/06/13 0:00:00, Duration: 30 day, Stop date: 07/05/13 18:00:00(Same as: Ativan) Venofer + 100 mg, 5 mL, No Longer Estephania Sodium Chloride Route: IV, Active 2013 [facility] 0.9% IV 100 mL Q24H, Start date: 06/05/13 21:00:00, Duration: 30 day, Stop date: 07/04/13 21:00:00 amino acids 1,000 mL, Rate: No Longer alberscollin 4.25% 90 ml/hr, Active 2013 [facility] w/Lytes/D5W Infuse over: 1000ml 11.1 hr, Route: (clinimixE) IV, Dosing 1,000 mL Weight 105.455 kg, Total Volume: 1,000, Start date: 06/05/13 20:40:00, Duration: 30 day, Stop date: 07/05/13 20:39:00Same as: ClinimixE ceFAZolin 2 gm, 100 mL, No Longer Stokes Route: IVPB, Active 2013 [facility] Drug form: INJ, [id number], Start date: 06/05/13 20:00:00, Duration: 30 day, Stop date: 07/05/13 12:00:00Same as: Ancef promethazine 6.25 mg, Route: Inactive Nawaf IVPB, ONCE, 2013 [facility] Dosing Weight 105.455, kg, PRN Nausea & Vomiting, Start date: 06/05/13 17:43:00 ondansetron 4 mg, 2 mL, Inactive Nawaf Route: IVP, 2013 [facility] Drug form: INJ, ONCE, Dosing Weight 105.455, kg, PRN Nausea & Vomiting, Start date: 06/05/13 17:43:00(Same as: Zofran) naloxone 0.04 mg, 0.1 Inactive Nawaf mL, Route: IVP2013 [facility] Drug form: INJ, Q2MIN, Dosing Weight 105.455, kg, PRN Narcotic Reversal, Start date: 06/05/13 17:43:00, Duration: 8 doses or times, Stop date: 06/05/13 23:00:00(Same as: Narcan) flumazenil 0.2 mg, 2 mL, Inactive [facility] [facility] Route: IVP2013 [facility] Drug form: INJ, PRN, Dosing Weight 105.455, kg, PRN Benzodiazepine Reversal, Initial dose, Start date: 06/05/13 17:43:00, Stop date: 06/05/13 23:00:00(Same as: Romazicon) meperidine 12.5 mg, Route: Inactive Nawaf [facility] IVP, Q30Min, 2013 [facility] Dosing Weight 105.455, kg, PRN Other -See Comment, For shivering, Start date: 06/05/13 17:43:00, Duration: 2 doses or times, Stop date: Limited # of times labetalol 10 mg, 2 mL, Inactive Penasco 06/05[facility] Route: IVP2013 [facility] Drug form: INJ, Q5Min, Dosing Weight 105.455, kg, PRN Elevated BP, Start date: 06/05/13 17:43:00, Duration: 5 doses or times, Stop date: 06/05/13 23:00:00 hydrALAZINE 10 mg, 0.5 mL, Inactive Penasco 06/05[facility] Route: IVP2013 [facility] Drug form: INJ, Q20Min, Dosing Weight 105.455, kg, PRN Elevated BP, Start date: 06/05/13 17:43:00, Duration: 2 doses or times, Stop date: 06/05/13 23:00:00(Same as: Apresoline) Push over 5 minutes hydromorphone 0.5 mg, 0.5 mL, Inactive Penasco 06/05[facility] Route: IVP2013 [facility] Drug form: INJ, Q5Min, Dosing Weight 105.455, kg, PRN Pain Score 7-10, Start date: 06/05/13 17:43:00, Duration: 4 doses or times, Stop date: 06/05/13 23:00:00 fentanyl 25 microgram, Inactive Penasco 0.5 mL, Route: 2013 [facility] IVP, Drug form: INJ, Q5Min, Dosing Weight 105.455, kg, PRN Pain Score 4-6, Start date: 06/05/13 17:43:00, Duration: 4 doses or times, Stop date: 06/05/13 23:00:00(Same as: Sublimaze) Preservative free. acetaminophen 1,000 mg, 100 Inactive Penasco mL, Route: 2013 [facility] IVPB, Drug form: INJ, ONCE, Dosing Weight 105.455, kg, PRN Pain Score 1-3, Start date: 06/05/13 17:43:00, Duration: 1 doses or times, Stop date: Limited # of timesInfuse over 15 minutes Do not exceed 4gm/day of acetaminophen Protonix 40 mg, Route: No Longer [place] IVP, Drug form: Active 2013 [facility] INJ, Before Dinner, Dosing Weight 105.455, kg, Patient is NPO, Start date: 06/05/13 16:39:00, Duration: 30 day, Stop date: 07/05/13 16:30:00For IV push reconstitute with 10 ml 0.9% sodium chloride and push over 2 minutes. (Same as: Protonix) Lovenox 40 mg, 0.4 mL, No Longer [place] Route: SUB-Q, Active 2013 [facility] Drug form: INJ, [id number], Dosing Weight 105.455, kg, Start date: 06/05/13 16:00:00, Duration: 30 day, Stop date: 07/04/13 16:00:00(Same as: Lovenox) Ancef 2 gm, Route: Inactive [place] IVPB, [id number], 2013 [facility] Dosing Weight 105.455, kg, Start date: 06/05/13 16:00:00, Duration: 30 day, Stop date: 07/05/13 8:00:00 Zofran 4 mg, 2 mL, No Longer [place] Route: IV, Drug Active 2013 [facility] form: INJ, Q8H, Dosing Weight 105.455, kg, PRN Nausea, Start date: 06/05/13 15:42:00, Duration: 30 day, Stop date: 07/05/13 15:41:00(Same as: Zofran) fluorescein 500 mg, 5 mL, No Longer Ajmani ophthalmic Route: IV, Active 2013 [facility] ONCALL, Drug form: INJ, Start date: 06/05/13 12:00:00, Duration: 30 day, Stop date: 07/05/13 11:59:00(Same as: Fluorescite) Dulcolax 40 mg, 4 supp, Inactive Ajmani Laxative Route: WI, Drug 2013 [facility] form: SUPP, ONCE, Start date: 06/05/13 9:43:00, Stop date: 06/05/13 9:43:00(Same As: Dulcolax, Bisco-Lax) Klonopin 0.5 mg, 1 tab, No Longer Ajmani Route: PO, Drug Active 2013 [facility] form: TAB, Daily, Start date: 06/05/13 9:00:00, Duration: 30 day, Stop date: 07/04/13 9:00:00(Same As: Klonopin) Dulcolax 40 mg, 4 supp, Inactive Ajmani Laxative Route: WI, Drug 2013 [facility] form: SUPP, ONCE, Start date: 06/05/13 8:07:00, Stop date: 06/05/13 8:07:00(Same As: Dulcolax, Bisco-Lax) magnesium 4 gm, 100 mL, No Longer Ajmani sulfate Route: IVPB, Active 2013 [facility] Drug form: INJ, ONCALL, Start date: 06/05/13 8:00:00, Duration: 30 day, Stop date: 07/05/13 7:59:00 potassium 20 mEq, 100 mL, Inactive mani chloride Route: IVPB, 2013 [facility] Drug form: INJ, Q2H, Start date: 06/05/13 8:00:00, Duration: 2 doses or times, Stop date: 06/05/13 10:00:00(Same as: KCL) Infuse no faster than 10 mEq/hr if given peripherally. Dulcolax 10 mg, 1 supp, Inactive Ajmani Laxative Route: WI, Drug 2013 [facility] form: SUPP, ONCE, Start date: 06/05/13 7:38:00, Stop date: 06/05/13 7:38:00(Same As: Dulcolax, Bisco-Lax) morphine 4 mg, 1 mL, No Longer Abby Sulfate Route: IV, Drug Active 2013 [facility] form: INJ, Q2H, PRN Pain Score 6-10, Start date: 06/04/13 22:25:00, Stop date: 07/04/13 22:24:00(Same as:MORPhine Sulfate) Ativan 1 mg, 0.5 mL, No Longer Estephania Route: IV, Drug Active 2013 [facility] form: INJ, Q4H, PRN Agitation, Start date: 06/04/13 22:03:00, Duration: 30 day, Stop date: 07/04/13 22:02:00(Same as: Ativan) Klonopin 1 mg, 2 tab, Inactive Estephania Route: PO, Drug 2013 [facility] form: TAB, ONCE, Start date: 06/04/13 22:00:00, Stop date: 06/04/13 22:00:00(Same As: Klonopin) Ancef + Sodium 1 gm, Route: No Longer Abby Chloride 0.9% IVPB, [id number], Active 2013 [facility] IV 100 mL Dosing Weight 105.455, kg, Start date: 06/04/13 20:00:00, Duration: 30 day, Stop date: 07/04/13 12:00:00(Same As: Ancef, Kefzol) Dextrose 5% 1,000 mL, Rate: No Longer Abby with 0.45% NaCl 125 ml/hr, Active 2013 [facility] IV 1,000 mL + Infuse over: 8 potassium hr, Route: IV, chloride 10 mEq Dosing Weight 105.455 kg, Total Volume: 1,005, Start date: 06/04/13 15:57:00, Duration: 30 day, Stop date: 07/04/13 15:56:00 ondansetron 4 mg, 2 mL, Inactive Andres Route: IVP, 2013 [facility] Drug form: INJ, ONCE, Dosing Weight 105.455, kg, PRN Nausea & Vomiting, Start date: 06/04/13 15:50:00(Same as: Zofran) naloxone 0.04 mg, 0.1 Inactive Andres mL, Route: IVP2013 [facility] Drug form: INJ, Q2MIN, Dosing Weight 105.455, kg, PRN Narcotic Reversal, Start date: 06/04/13 15:50:00, Duration: 8 doses or times, Stop date: 06/04/13 23:00:00(Same as: Narcan) flumazenil 0.2 mg, 2 mL, Inactive Andres Route: IVP2013 [facility] Drug form: INJ, PRN, Dosing Weight 105.455, kg, PRN Benzodiazepine Reversal, Initial dose, Start date: 06/04/13 15:50:00, Duration: 30 day, Stop date: 07/04/13 15:49:00(Same as: Romazicon) acetaminophen 1,000 mg, 100 Inactive Andres mL, Route: 2013 [facility] IVPB, Drug form: INJ, ONCE, Dosing Weight 105.455, kg, PRN Pain Score 1-3, Start date: 06/04/13 15:50:00, Duration: 1 doses or times, Stop date: Limited # of timesInfuse over 15 minutes Do not exceed 4gm/day of acetaminophen morphine 2 mg, 1 mL, Inactive Andres Sulfate Route: IVP2013 [facility] Drug form: INJ, Q5Min, Dosing Weight 105.455, kg, PRN Pain Score 4-6, Start date: 06/04/13 15:50:00, Duration: 5 doses or times, Stop date: 06/04/13 23:00:00(Same as:MORPhine Sulfate) GoLYTELY 4,000 ml, Inactive Abby Route: NG, Drug 2013 [facility] Form: PDR/REC, Dosing Weight 105.455, kg, ONCE, Start date: 06/04/13 15:25:00, Duration: 1 doses or times, Stop date: 06/04/13 15:25:00(polyet hylene glycol electrolyte solution 4 Liter bottle) (Same as: Golytely, Colyte) D5W 1/2NS + KCL 1,000 mL, Rate: Inactive Abby 10mEq/L 1000ml 125 ml/hr, 2013 [facility] (Premix) 1000 Infuse over: 8 mL hr, Route: IV, Dosing Weight 105.455 kg, Total Volume: 1,000, Start date: 06/04/13 15:24:00, Duration: 30 day, Stop date: 07/04/13 15:23:00 morphine 2 mg, 1 mL, No Longer Abby Sulfate Route: IVP, Active 2013 [facility] Drug form: INJ, Q4H, Dosing Weight 105.455, kg, PRN Pain, Start date: 06/04/13 15:19:00, Duration: 30 day, Stop date: 07/04/13 15:18:00(Same as:MORPhine Sulfate) GoLYTELY 4,000 ml, Inactive Stokes Route: PO, Drug 2013 [facility] Form: PDR/REC, Dosing Weight 105.455, kg, ONCE, Start date: 06/04/13 13:00:00, Duration: 1 doses or times, Stop date: 06/04/13 13:00:00(polyet hylene glycol electrolyte solution 4 Liter bottle) (Same as: Golytely, Colyte) magnesium 4 gm, 100 mL, Inactive Estephania sulfate Route: IVPB, 2013 [facility] Drug form: INJ, ONCALL, Start date: 06/03/13 20:00:00, Duration: 30 day, Stop date: 07/03/13 19:59:00 K-Dur 20 40 mEq, 2 tab, Inactive Estephania Route: PO, Drug 2013 [facility] form: ERTAB, ONCALL, Start date: 06/03/13 19:00:00, Duration: 1 doses or times(Same as: K-Dur 20) "Do Not Crush" With food and full glass of water Tylenol 650 mg, 2 tab, No Longer Augustus Route: PO, Drug Active 2013 [facility] form: TAB, Q6H, Dosing Weight 105.455, kg, PRN Pain, Start date: 06/01/13 10:33:00, Duration: 30 day, Stop date: 07/01/13 10:32:00Do not exceed 4 gm/day. (Same as: Tylenol) Valium 2 mg, 1 tab, No Longer Abby Route: PO, Drug Active 2013 [facility] form: TAB, BID, Dosing Weight 105.455, kg, PRN Anxiety, Start date: 05/31/13 18:33:00, Duration: 30 day, Stop date: 06/30/13 18:32:00(Same as: Valium) Protonix 40 mg, 1 tab, No Longer Shanekai Route: PO, Drug Active 2013 [facility] form: ECTAB, Before Dinner, Start date: 05/31/13 16:30:00, Duration: 30 day, Stop date: 06/29/13 16:30:00Tablet should not be chewed or crushed. (Same as: Protonix) PROzac 40 mg, 2 cap, No Longer Estephania Route: NG, Drug Active 2013 [facility] form: CAP, Daily, Start date: 05/31/13 10:30:00, Stop date: 06/30/13 9:00:00(Same as: Prozac, Sarafem) Levothroid 50 microgram, 1 No Longer cinthiai tab, Route: PO, 2013 [facility] Drug form: TAB, [id number], Start date: 05/31/13 10:30:00, Duration: 30 day, Stop date: 06/30/13 6:30:00Take 1 hour before or 2 hours after meal; Enteral feeds may interefere with the absorption of this medication.(Jhonatan e as:Levothroid, Synthroid) Detrol LA 4 mg, 1 cap, No Longer Estephania Route: PO, Drug 2013 [facility] form: CAP, Daily, Start date: 05/31/13 10:30:00, Duration: 30 day, Stop date: 06/30/13 9:00:00Do Not Crush. (Same As: Detrol LA) Sodium Chloride 250 mL, Route: No Longer Goodman 0.9% IV IVPB, Start Active 2013 [facility] date: 05/31/13 10:11:00, Duration: 30 day, Stop date: 06/30/13 10:10:00, PRN Line Flush BD Normal 10 mL, Route: No Longer Goodman Saline Flush IVP, Drug Form: 2013 [facility] INJ, PRN, PRN Line Flush, Start date: 05/31/13 10:11:00, Duration: 30 day, Stop date: 06/30/13 10:10:00(Same as: BD Posiflush) Restoril 15 mg, 1 cap, No Longer Ajmani Route: PO, Drug Active 2013 [facility] form: CAP, Bedtime, PRN Sleep, Start date: 05/31/13 10:10:00, Duration: 30 day, Stop date: 06/30/13 10:09:00(Same As: Restoril) Readi-Cat 2 450 mL, Route: No Longer Ajmani PO, Drug Form: Active 2013 [facility] SUSP, ONCALL, Start date: 05/31/13 10:00:00, Duration: 30 day, Stop date: 06/30/13 9:59:00Same as Readi-Cat 2 Zofran 4 mg, 2 mL, No Longer Goodman Route: IVP, Active 2013 [facility] Drug form: INJ, Q4H, PRN Nausea, Start date: 05/31/13 5:49:00, Duration: 30 day, Stop date: 06/30/13 5:48:00(Same as: Zofran) morphine 4 mg, 2 mL, No Longer Goodman Sulfate Route: IV, Drug Active 2013 [facility] form: INJ, Q4H, PRN Pain, Start date: 05/31/13 5:49:00, Duration: 30 day, Stop date: 06/30/13 5:48:00(Same as:MORPhine Sulfate) Sodium Chloride 1,000 mL, Rate: No Longer Goodman 0.45% IV 1,000 75 ml/hr, Active 2013 [facility] mL Infuse over: 13.3 hr, Route: IV, Dosing Weight 105.455 kg, Total Volume: 1,000, Start date: 05/31/13 5:49:00, Duration: 30 day, Stop date: 06/30/13 5:48:00 Detrol LA 4 mg 4 mg=1 cap, PO, No Longer oral capsule, Daily, at Active 2013 [facility] extended bedtime, # 30 release cap, 0 Refill(s)at bedtime fluoxetine 40 40 mg=1 cap, Active mg oral capsule PO, Daily, at 2013 AM, # 30 cap, 0 Refill(s)at 9 AM Synthroid 50 50 microgram=1 Active mcg (0.05 mg) tab, PO, Daily, 2013 [facility] oral tablet at 9 AM, # 30 tab, 0 Refill(s)at 9 AM Prevacid 30 mg 30 mg=1 cap, Active oral delayed PO, Daily, at 2013 [facility] release capsule bedtime, # 30 cap, 0 Refill(s)at bedtime pneumococcal 0.5 ml, Route: No Longer SYSTEM 23-valent IM, Drug Form: Active 2013 [facility] vaccine INJ, ONCALL, Start date: 05/31/13 3:38:03, Stop date: 06/30/13 3:33:03(Same as: Pneumovax 23) Refrigerate influenza virus 0.5 mL, Route: No Longer SYSTEM vaccine, IM, Drug Form: Active 2013 [facility] inactivated SUSP, ONCALL, Start date: 05/31/13 3:38:03, Stop date: 06/30/13 3:33:03(Same as: Fluzone) Azactam 1 gm, Route: IVPB No Longer [place] IVPB, [id number], Active 2011 [facility] Start date: 09/21/11 14:00:00, Duration: 30 day, Stop date: 10/21/11 6:00:00 nystatin-triamc 1 appl, Route: TOP No Longer [place] inolone topical TOP, BID, Drug Active 2011 [facility] cream form: CRM, Start date: 09/20/11 9:00:00, Duration: 30 day, Stop date: 10/19/11 17:00:00 Lovenox 40 mg, 0.4 mL, SUB-Q No Longer [place] Route: SUB-Q, Active 2011 [facility] Drug form: INJ, [id number], Start date: 09/20/11 4:00:00, Duration: 30 day, Stop date: 10/19/11 4:00:00 Lovenox 40 mg, 0.4 mL, SUB-Q No Longer [place] Route: SUB-Q, Active 2011 [facility] Drug form: INJ, Q12H, Start date: 09/20/11 0:00:00, Duration: 30 day, Stop date: 10/19/11 12:00:00 Lasix 20 mg, 1 tab, PO No Longer [place] Route: PO, Drug Active 2011 [facility] form: TAB, Daily, Start date: 09/19/11 17:45:00, Duration: 30 day, Stop date: 10/19/11 9:00:00 K-Dur 20 40 mEq, 2 tab, PO No Longer [place] Route: PO, Drug Active 2011 [facility] form: ERTAB, BID, Start date: 09/19/11 17:43:00, Duration: 30 day, Stop date: 10/19/11 17:00:00 vancomycin 1 gm, Route: IVPB No Longer Rehanalberscollin IVPB, [id number], Active 2011 [facility] Start date: 09/19/11 14:00:00, Duration: 30 day, Stop date: 10/18/11 14:00:00 levofloxacin 750 mg, 1 tab, PO No Longer [place] Route: PO, Drug Active 2011 [facility] form: TAB, Q24H, Start date: 09/19/11 14:00:00, Duration: 30 day, Stop date: 10/18/11 14:00:00 Benadryl 25 mg, 1 cap, PO No Longer [place] Route: PO, Drug Active 2011 [facility] form: CAP, Q6H, PRN See Nurse's Notes, Start date: 09/19/11 9:39:00, Duration: 30 day, Stop date: 10/19/11 9:38:00 acetaminophen-h 1 tab, Route: PO No Longer Estephania ydrocodone 325 PO, Drug Form: Active 2011 [facility] mg-5 mg oral TAB, Q4H, PRN tablet Pain, Start date: 09/18/11 21:34:00, Duration: 30 day, Stop date: 10/18/11 21:33:00 Xopenex 0.63 mg, 3 mL, NEB No Longer [place] Route: NEB, Active 2011 [facility] Drug form: SOLN, RTID, Start date: 09/18/11 20:00:00, Duration: 30 day, Stop date: 10/18/11 14:00:00 ipratropium 0.5 mg, 2.5 mL, NEB No Longer [place] 0.02% Route: NEB Active 2011 [facility] inhalation Drug form: solution SOLN, RTID, Start date: 09/18/11 20:00:00, Duration: 30 day, Stop date: 10/18/11 14:00:00 Xopenex 0.63 mg, 3 mL, NEB No Longer [place] Route: NEB, Active 2011 [facility] Drug form: SOLN, RTID, PRN See Respiratory Notes, Start date: 09/18/11 15:36:00, Duration: 30 day, Stop date: 10/18/11 15:35:00 ipratropium 0.5 mg, 2.5 mL, NEB No Longer [place] 0.02% Route: NEB2011 [facility] inhalation Drug form: solution SOLN, RTID, PRN See Nurse's Notes, Start date: 09/18/11 15:35:00, Duration: 30 day, Stop date: 10/18/11 15:34:00 ferrous sulfate 325 mg, 1 tab, PO No Longer [place] Route: PO, Drug Active 2011 [facility] form: TAB, BID-Meals, Start date: 09/17/11 17:00:00, Duration: 30 day, Stop date: 10/17/11 8:00:00 Lovenox 40 mg, 0.4 mL, SUB-Q No Longer [place] Route: SUB-Q, Active 2011 [facility] Drug form: INJ, [id number], Start date: 09/17/11 16:00:00, Duration: 30 day, Stop date: 10/16/11 12:00:00 Levaquin 500 mg, 1 tab, PO No Longer [place] Route: PO, Drug Active 2011 [facility] form: TAB, [id number], Start date: 09/17/11 15:00:00, Duration: 30 day, Stop date: 10/16/11 15:00:00 Xenaderm 1 appl, Route: TOP No Longer [place] TOP, Daily, Active 2011 [facility] Drug form: OINT, Start date: 09/17/11 9:00:00, Duration: 30 day, Stop date: 10/16/11 9:00:00 Ambien 5 mg, 1 tab, PO No Longer [place] Route: PO, Drug Active 2011 [facility] form: TAB, Bedtime, PRN Insomnia, Start date: 09/16/11 22:02:00, Duration: 30 day, Stop date: 10/16/11 22:01:00 Nephro-Idania Rx 1 tab, Route: PO No Longer [place] PO, Drug Form: Active 2011 [facility] TAB, BID, Start date: 09/16/11 17:00:00, Duration: 30 day, Stop date: 10/16/11 9:00:00 Protonix 40 mg, 1 tab, PO No Longer [place] Route: PO, Drug Active 2011 [facility] form: ECTAB, Before Dinner, Start date: 09/16/11 16:30:00, Duration: 30 day, Stop date: 10/15/11 16:30:00 vancomycin 1 gm, Route: IVPB No Longer [facility] IVPB, [id number], Active 2011 [facility] Start date: 09/16/11 14:00:00, Duration: 30 day, Stop date: 10/14/11 14:00:00 Diflucan 200 mg, 1 tab, PO No Longer [facility] Route: PO, Drug Active 2011 [facility] form: TAB, [id number], Start date: 09/16/11 14:00:00, Duration: 30 day, Stop date: 10/15/11 14:00:00 Dilaudid 1 mg, 0.5 mL, IV No Longer [facility] Route: IV, Drug Active 2011 [facility] form: INJ, Q4H, PRN Pain, Start date: 09/16/11 13:27:00, Duration: 30 day, Stop date: 10/16/11 13:26:00 Reglan 5 mg, 1 tab, PO No Longer [place] Route: PO, Drug Active 2011 [facility] form: TAB, TID-Before Meals, Start date: 09/16/11 13:21:00, Duration: 30 day, Stop date: 10/16/11 11:30:00 Levothroid 0.05 mg, 1 tab, PO No Longer [place] 09/15/ Route: PO, Drug Active 2011 [facility] form: TAB, [id number], Start date: 09/16/11 13:18:00, Duration: 30 day, Stop date: 10/16/11 6:30:00 Lovenox 30 mg, 0.3 mL, SUB-Q No Longer Stokes 09/15/ MH Route: SUB-Q, Active 2011 [facility] Drug form: INJ, QNoon, Start date: 09/16/11 12:00:00, Duration: 30 day, Stop date: 10/15/11 12:00:00 Lasix 40 mg, 4 mL, IV No Longer [place] Route: IV, Drug Active 2011 [facility] form: INJ, ONCE, Start date: 09/16/11 10:30:00, Stop date: 09/16/11 10:30:00 acetylcysteine 400 mg, 2 mL, NEB No Longer [place] MH Route: [employer] [facility] Drug Form: SOLN, RQ8H, Start date: 09/15/11 23:00:00, Duration: 30 day, Stop date: 10/15/11 15:00:00 Sublimaze 25 microgram, IV No Longer [place] 09/15/ 0.5 mL, Route: Active 2011 [facility] IV, Drug form: INJ, Q2H, PRN Pain, Start date: 09/15/11 20:40:00, Duration: 30 day, Stop date: 10/15/11 20:39:00 Lasix 40 mg, 4 mL, IV No Longer [place] 09/14/ MH Route: IV, Drug Active 2011 [facility] form: INJ, ONCE, Start date: 09/15/11 17:28:00, Stop date: 09/15/11 17:28:00 Pulmicort 1 mg, 4 mL, NEB No Longer [place] 09/14/ MH Respules Route: NEB Active 2011 [facility] Drug form: SOLN, RQ12H, Start date: 09/15/11 17:27:00, Duration: 30 day, Stop date: 10/15/11 16:00:00 MiraLax 17 gm, 1 pkt, NG No Longer [place] [facility] Route: NG, Drug Active 2011 [facility] form: PWDR, Daily, Start date: 09/14/11 18:00:00, Duration: 30 day, Stop date: 10/14/11 9:00:00 potassium 20 mmol, 6.67 IV No Longer Kike phosphate mL, Route: IV, Active 2011 [facility] ONCE, Start date: 09/14/11 18:00:00, Stop date: 09/14/11 18:00:00 Dulcolax 20 mg, 2 supp, WI No Longer [place]ike Laxative Route: WI, Drug Active 2011 [facility] form: SUPP, ONCE, Start date: 09/14/11 17:15:00, Stop date: 09/14/11 17:15:00 Dulcolax 20 mg, 2 supp, WI No Longer [place]ike Laxative Route: WI, Drug Active 2011 [facility] form: SUPP, Q48H, PRN Constipation, Start date: 09/14/11 16:56:00, Duration: 30 day, Stop date: 10/14/11 16:55:00 Trandate 5 mg, 1 mL, IV No Longer Retz Route: IV, Drug Active 2011 [facility] form: INJ, ONCE, Start date: 09/14/11 15:00:00, Stop date: 09/14/11 15:00:00 vancomycin 1 gm, Route: IVPB No Longer [place] IVPB, ONCE, Active 2011 [facility] Start date: 09/14/11 11:30:00, Stop date: 09/14/11 11:30:00 Xopenex 0.63 mg, 3 mL, NEB No Longer Retz Route: NEB Active 2011 [facility] Drug form: SOLN, RQ4H, Start date: 09/14/11 11:00:00, Duration: 30 day, Stop date: 10/14/11 7:00:00 ipratropium 0.5 mg, 2.5 mL, NEB No Longer Retz 0.02% Route: NEB Active 2011 [facility] inhalation Drug form: solution SOLN, RQ4H, Start date: 09/14/11 11:00:00, Duration: 30 day, Stop date: 10/14/11 7:00:00 Trandate 5 mg, 1 mL, IV No Longer Retz Route: IV, Drug Active 2011 [facility] form: INJ, ONCE, Start date: 09/14/11 10:00:00, Stop date: 09/14/11 10:00:00 AMIODarone 900 482 mL, Rate: IV No Longer [place]z mg + Dextrose TITRATE, Route: Active 2011 [facility] 5% in Water IV IV, Dosing 482 mL Weight 117.8 kg, Total Volume: 500, Start date: 09/14/11 9:55:00, Duration: 1 doses or times, Stop date: 09/15/11 9:54:00 potassium 20 mEq, 100 mL, IVPB No Longer [place]z chloride Route: IVPB, Active 2011 [facility] Drug form: INJ, ONCE, Start date: 09/14/11 9:30:00, Stop date: 09/14/11 9:30:00 Cordarone 150 mg, 3 mL, IVPB No Longer Retz Route: IVPB, Active 2011 [facility] Drug form: INJ, ONCE, Start date: 09/14/11 9:13:00, Stop date: 09/14/11 9:13:00 Cardizem 10 mg, 2 mL, IV No Longer Retz Route: IV, Drug Active 2011 [facility] form: INJ, ONCE, Start date: 09/14/11 9:12:00, Stop date: 09/14/11 9:12:00 Cardizem 10 mg, 2 mL, IV No Longer Retz Route: IV, Drug Active 2011 [facility] form: INJ, ONCE, Start date: 09/14/11 9:09:00, Stop date: 09/14/11 9:09:00 diltiazem 100 100 mL, Rate: IV No Longer Retz mg + Sodium TITRATE, Route: Active 2011 [facility] Chloride 0.9% IV, Dosing IV 100 mL Weight 117.8 kg, Total Volume: 100, Start date: 09/14/11 9:09:00, Duration: 30 day, Stop date: 10/14/11 9:08:00 Lanoxin 0.5 mg, 2 mL, IV No Longer Retz Route: IV, Drug Active 2011 [facility] form: INJ, ONCE, Start date: 09/14/11 9:08:00, Stop date: 09/14/11 9:08:00 parenteral 1,680 mL, Rate: IV No Longer [place] nutrition 70 ml/hr, Active 2011 [facility] solution Infuse over: 24 w/electrolytes hr, Route: IV, 1,680 mL Dosing Weight 117.8 kg, Total Volume: 1,680, Start date: 09/13/11 21:00:00, Duration: 30 day, Stop date: 10/13/11 20:59:00 Reglan 10 mg, 10 mL, NG No Longer [place] Route: NG, Drug Active 2011 [facility] form: SYRP, Q8H, Start date: 09/13/11 17:15:00, Duration: 30 day, Stop date: 10/13/11 16:00:00 vancomycin 1 gm, Route: IVPB No Longer [place] IVPB, ONCALL, [facility] 2011 [facility] Start date: 09/13/11 17:00:00, Stop date: 09/13/11 23:00:00 phytonadione 10 mg, 1 mL, IVPB No Longer [place] Route: IVPB, 2011 [facility] Drug form: INJ, ONCE, Start date: 09/13/11 17:00:00, Stop date: 09/13/11 17:00:00 calcium 1,000 mg, 10 IV No Longer [place] chloride mL, Route: IV, 2011 [facility] Drug form: INJ, ONCE, Start date: 09/12/11 22:00:00, Stop date: 09/12/11 22:00:00 albumin human 25 gm, 100 mL, IV No Longer [place] Route: IV, Drug 2011 [facility] form: INJ, Q12H, Start date: 09/12/11 20:00:00, Stop date: 09/15/11 0:00:00 Sodium Chloride 250 mL, Route: IVPB No Longer [place] 0.9% IV IVPB, Start 2011 [facility] date: 09/12/11 18:05:00, Duration: 30 day, Stop date: 10/12/11 18:04:00, PRN Line Flush BD Normal 10 mL, Route: IVP No Longer [place] Saline Flush IVP, Drug Form: 2011 [facility] INJ, PRN, PRN Line Flush, Start date: 09/12/11 18:05:00, Duration: 30 day, Stop date: 10/12/11 18:04:00 calcium 1,000 mg, 10 IV No Longer [place] gluconate mL, Route: IV, Active 2011 [facility] Drug form: INJ, ONCE, Start date: 09/12/11 11:00:00, Stop date: 09/12/11 11:00:00 DuoNeb 3 mL, Route: NEB No Longer [place] inhalation NEB, Drug Form: Active 2011 [facility] solution SOLN, RQ4H, Start date: 09/12/11 11:00:00, Duration: 30 day, Stop date: 10/12/11 7:00:00 Diflucan 200 mg, 100 mL, IVPB No Longer [place] Route: IVPB, Active 2011 [facility] Drug form: INJ, [id number], Start date: 09/12/11 11:00:00, Duration: 3 day, Stop date: 09/14/11 11:00:00 magnesium 50 mL, Rate: 25 IVPB No Longer [place] sulfate ml/hr, Infuse Active 2011 [facility] over: 2 hr, Route: IVPB, Total Volume: 50, Start date: 09/12/11 11:00:00, Stop date: 09/12/11 11:00:00 calcium 1,000 mg, 10 IVPB No Longer [facility] gluconate mL, Route: Active 2011 [facility] IVPB, ONCE, Start date: 09/12/11 7:00:00, Stop date: 09/12/11 7:00:00 chlorhexidine 15 mL, Route: S&SPIT No Longer [facility] topical 0.12% S&SPIT, Q6H, Active 2011 [facility] liquid Drug form: LIQ, Start date: 09/12/11 6:00:00, Duration: 30 day, Stop date: 10/12/11 0:00:00 fentanyl 0.6 mg IV, Start date: IV No Longer [place] 09/11/ 09/12/11 Active 2011 [facility] 0:54:00, Duration: 30, 30 ml glucagon 1 mg, Route: IV No Longer [facility] IV, Drug form: Active 2011 [facility] PDR/INJ, PRN, PRN Blood Glucose Results, Start date: 09/12/11 0:19:00, Duration: 30 day, Stop date: 10/12/11 0:18:00 Dextrose 50% in 50 mL, Route: IVP No Longer [place] IV IVP, Start Active 2011 [facility] date: 09/12/11 0:19:00, Duration: 30 day, Stop date: 10/12/11 0:18:00, PRN Blood Glucose Results NovoLog FlexPen 6 unit, 0.06 SUB-Q No Longer [facility] mL, Route: Active 2011 [facility] SUB-Q, Drug form: SOLN, Sliding Scale, PRN Blood Glucose Results, Start date: 09/12/11 0:19:00, Stop date: 10/12/11 0:18:00 Sodium Chloride 1,000 mL, Rate: IV No Longer [place] 0.9% IV 1,000 100 ml/hr, Active 2011 [facility] mL Infuse over: 10 hr, Route: IV, Dosing Weight 117.8 kg, Total Volume: 1,000, Start date: 09/11/11 23:33:00, Stop date: 09/13/11 20:59:00 Sodium Chloride 1,000 mL, Rate: IV No Longer [place] 09/11/ 0.9% IV 1,000 100 ml/hr, Active 2011 [facility] mL Infuse over: 10 hr, Route: IV, Dosing Weight 117.8 kg, Total Volume: 1,000, Start date: 09/11/11 20:19:00, Duration: 30 day, Stop date: 10/11/11 20:18:00 Sublimaze 50 microgram, 1 IV No Longer [place] mL, Route: IV, Active 2011 [facility] Drug form: INJ, ONCE, Start date: 09/11/11 17:41:00, Stop date: 09/11/11 17:41:00 Lasix 80 mg, 8 mL, IV No Longer [place] Route: IV, Drug Active 2011 [facility] form: INJ, ONCE, Start date: 09/11/11 17:14:00, Stop date: 09/11/11 17:14:00 albumin human 25 gm, 100 mL, IV No Longer [place]z Route: IV, Drug Active 2011 [facility] form: INJ, ONCE, Start date: 09/11/11 16:46:00, Stop date: 09/11/11 16:46:00 Lasix 20 mg, 2 mL, IV No Longer [place]z Route: IV, Drug Active 2011 [facility] form: INJ, ONCE, Start date: 09/11/11 16:38:00, Stop date: 09/11/11 16:38:00 Sublimaze 50 microgram, 1 IV No Longer [place] mL, Route: IV, Active 2011 [facility] Drug form: INJ, ONCE, Start date: 09/11/11 15:04:00, Stop date: 09/11/11 15:04:00 sodium 100 mEq, 100 IV No Longer [place] bicarbonate mL, Route: IV, Active 2011 [facility] 8.4% Drug Form: INJ, ONCE, Start date: 09/11/11 14:00:00, Stop date: 09/11/11 14:00:00 cefazolin 1 gm, Route: IVPB No Longer [place] IVPB, ABXQ8H, Active 2011 [facility] Start date: 09/11/11 10:00:00, Duration: 30 day, Stop date: 10/11/11 2:00:00 calcium 2,000 mg, 20 IV No Longer [place] gluconate mL, Route: IV, Active 2011 [facility] ONCE, Start date: 09/11/11 10:00:00, Stop date: 09/11/11 10:00:00 albumin human 25 gm, 500 mL, IV No Longer [place] Route: IV, Drug Active 2011 [facility] form: INJ, ONCE, Start date: 09/11/11 9:40:00, Stop date: 09/11/11 9:40:00 Haldol 5 mg, 1 mL, IV No Longer [place] Route: IV, Drug Active 2011 [facility] form: INJ, Q4H, PRN Agitation, Start date: 09/11/11 9:39:00, Duration: 30 day, Stop date: 10/11/11 9:38:00 Sodium Chloride 1,000 mL, Rate: IV No Longer [place] 0.9% IV 1,000 100 ml/hr, Active 2011 [facility] mL Infuse over: 10 hr, Route: IV, Dosing Weight 117.8 kg, Total Volume: 1,000, Start date: 09/11/11 9:38:00, Stop date: 10/11/11 9:37:00 Pepcid 20 mg, 2 mL, IVP No Longer [place] Route: IVP, 2011 [facility] Drug form: INJ, Daily, Start date: 09/11/11 9:00:00, Duration: 30 day, Stop date: 10/10/11 9:00:00 Merrem 500 mg, Route: IVPB No Longer [place] IVPB, ABXQ8H, Active 2011 [facility] Start date: 09/11/11 6:00:00, Duration: 1 day, Stop date: 09/17/11 6:00:00 albumin human 12.5 gm, 250 IV No Longer [place] mL, Route: IV, 2011 [facility] Drug form: INJ, ONCE, Start date: 09/11/11 5:32:00, Stop date: 09/11/11 5:32:00 vancomycin 1 gm, Route: IVPB No Longer [place] IVPB, ONCE, [facility] 2011 [facility] Start date: 09/11/11 5:30:00, Stop date: 09/11/11 5:30:00 hetastarch 6% IV, Start date: IV No Longer [place] in NS 500 mL 09/11/11 [facility] 2011 [facility] 5:30:00, Duration: 1, 500 ml Lasix 20 mg, 2 mL, IV No Longer [place] Route: IV, Drug 2011 [facility] form: INJ, ONCE, Start date: 09/10/11 21:09:00, Stop date: 09/10/11 21:09:00 hydromorphone 6 30 mL, Rate: IV No Longer [place]by mg asdir, Route: Active 2011 [facility] IV, Dosing Weight 117.8 kg, Total Volume: 30, Start date: 09/10/11 20:50:00, Duration: 30 day, Stop date: 10/10/11 20:49:00 Dextrose 5% 1,000 mL, Rate: IV No Longer [place] with 0.45% NaCl 250 ml/hr, Active 2011 [facility] IV 1,000 mL Infuse over: 4 hr, Route: IV, Dosing Weight 117.8 kg, Total Volume: 1,000, Start date: 09/10/11 18:00:00, Stop date: 10/10/11 17:59:00 Protonix 40 mg, Route: IVP No Longer [place] IVP, Drug form: Active 2011 [facility] INJ, Before Dinner, Start date: 09/10/11 16:30:00, Duration: 30 day, Stop date: 10/09/11 16:30:00 Sodium Chloride IV, 500 ml/hr, IV No Longer [place] 0.9% IV ONCALL, Start Active 2011 [facility] date: 09/10/11 15:00:00, Duration: 30, 500 ml hetastarch 6% 500 mL, 500 IV No Longer [place] in NS ml/hr, Route: Active 2011 [facility] IV, Drug Form: INJ, ONCE, Start date: 09/10/11 14:00:00, Stop date: 09/10/11 14:00:00 Ativan 1 mg, 0.5 mL, IV No Longer [place] Route: IV, Drug Active 2011 [facility] form: INJ, Q6H, PRN Anxiety, Start date: 09/10/11 11:49:00, Duration: 30 day, Stop date: 10/10/11 11:48:00 Lopressor 25 mg, 1 tab, PO No Longer [place] Route: PO, Drug Active 2011 [facility] form: TAB, Daily, Start date: 09/10/11 9:00:00, Duration: 30 day, Stop date: 10/09/11 9:00:00 Lovenox 40 mg, 0.4 mL, SUB-Q No Longer [place] Route: SUB-Q, Active 2011 [facility] Drug form: INJ, Daily, Start date: 09/10/11 9:00:00, Duration: 30 day, Stop date: 10/09/11 9:00:00 Zofran 4 mg, 2 mL, IVP No Longer [place] Route: IVP, Active 2011 [facility] Drug form: INJ, Q4H, PRN Nausea, Start date: 09/10/11 1:40:00, Duration: 30 day, Stop date: 10/10/11 1:39:00 influenza virus 0.5 mL, Route: No Longer SYSTEM vaccine, IM, Drug Form: [facility] 2011 [facility] inactivated INJ, ONCALL, Start date: 09/09/11 20:52:24, Stop date: 10/09/11 20:47:24Same as: Fluarix Contains 15 mcg of influenza virus antigen from each of 3 viruses H1N1, H3N2, and 3,11 cefazolin 2 gm, 100 mL, IVPB No Longer [place] Route: IVPB, 2011 [facility] Drug form: INJ, ABXQ8H, Start date: 09/09/11 20:00:00, Stop date: 09/10/11 16:10:00 morphine IV, Start date: IV No Longer [place] Sulfate 30 mg 09/09/112011 [facility] 19:06:00, 30 ml Dextrose 5% 1,000 mL, Rate: IV No Longer [place] with 0.45% NaCl 250 ml/hr, 2011 [facility] IV 1,000 mL Infuse over: 4 hr, Route: IV, Dosing Weight 117.8 kg, Total Volume: 1,000, Start date: 09/09/11 19:03:00, Duration: 4 hr, Stop date: 09/10/11 17:58:00 Phenergan 12.5 mg, Route: IM No Longer Iggy IM, ONCE, Start 2011 [facility] date: 09/09/11 17:07:00, Stop date: 09/09/11 17:07:00 hydromorphone 0.1 mg, Route: IV No Longer [place] IV, ONCE, Start 2011 [facility] date: 09/09/11 16:58:00, Stop date: 09/09/11 16:58:00 Zofran 4 mg, Route: IV No Longer [place] IV, ONCE, Start 2011 [facility] date: 09/09/11 16:56:00, Stop date: 09/09/11 16:56:00 hydromorphone 0.2 mg, Route: IV No Longer [place] IV, ONCE, Start Active 2011 [facility] date: 09/09/11 16:55:00, Stop date: 09/09/11 16:55:00 Allergies, Adverse Reactions, Alerts Substance Category Reaction Severity Reaction Status Date Comments Source type Reported Adhesive propensity Adverse Tape to adverse Reaction [facility] reactions to substance Demerol HCl drug allergy Allergy Active [facility] NKFA drug allergy Allergy Active [facility] Immunizations Immunization Date Site Status Last Updated Comments Source Given pneumococcal completed [facility] 4 vaccine influenza virus completed [facility] vaccine, 4 inactivated pneumococcal Right completed [facility] Left completed [facility] vaccine, 4 [facility] inactivated influenza virus Not Given [facility] vaccine, 2 inactivated Results Order Name Results Value Reference Date Interpretation Comments Source Range ELECTROLYT AGAP 11.0 meq/L 10.0 - 01/03 ES 20.0 [facility] ELECTROLYT eGFR 57 01/03 Result Comment: The eGFR is calculated using the CKD-EPI formula. In most young, healthy individuals the eGFR will be >90 mL/ min/1.73m2. The eGFR declines with age. An eGFR of 60-89 may be normal in [facility] mL/min/1.7 some populations, particularly the elderly, for whom the CKD-EPI formula has not been extensively validated. Use of the eGFR is not recommended in the following populations: [address] Individuals with unstable creatinine concentrations, including [...] mg/dL 0.50 - 01/03 ES Lvl 1.40 [facility] ELECTROLYT Glucose Lvl 115 mg/dL 70 - 99 01/03 ES [facility] ELECTROLYT Chloride Lvl 108 meq/L 95 - 109 01/03 ES [facility] ELECTROLYT Potassium 4.0 meq/L 3.5 - 5.1 01/03 ES Lvl /2016 [facility] ELECTROLYT Calcium Lvl 7.4 mg/dL 8.5 - 10.5 01/03 ES /2015 [facility] ELECTROLYT CO2 30 meq/L 24 - 32 01/03 ES [facility] ELECTROLYT Sodium Lvl 145 meq/L 135 - 145 01/03 ES [facility] ELECTROLYT BUN 18 mg/dL 7 - 22 01/03 ES /2015 [facility] HEMATOLOGY Eosinophils 0.4 K/CMM 0.0 - 0.5 / MH # /2016 [facility] HEMATOLOGY Basophils # 0.0 K/CMM 0.0 - 0.2 01/03 [facility] HEMATOLOGY Basophils 0.4 % 0.0 - 1.0 01/03 [facility] HEMATOLOGY Eosinophils 5.6 % 0.0 - 4.0 01/03 [facility] HEMATOLOGY Monocytes # 0.7 K/CMM 0.0 - 0.8 01/03 [facility] HEMATOLOGY Lymphocytes 2.4 K/CMM 1.0 - 5.5 01/03 # /2015 [facility] HEMATOLOGY Segs 45.0 % 45.0 - 01/03 75.0 [facility] HEMATOLOGY Segs-Bands # 2.9 K/CMM 1.5 - 8.1 01/03 [facility] HEMATOLOGY Lymphocytes 38.3 % 20.0 - 01/03 40.0 [facility] HEMATOLOGY Monocytes 10.7 % 2.0 - 12.0 01/03 [facility] HEMATOLOGY RBC Morph Normal 01/03 [facility] (01/04/16 3:05 AM) [facility] HEMATOLOGY Plt Morph Normal 01/03 [facility] (01/04/16 3:05 AM) [facility] HEMATOLOGY RDW 14.9 % 11.5 - 01/03 14.5 [facility] HEMATOLOGY Platelet 124 K/CMM 133 - 450 01/03 [facility] HEMATOLOGY MCH 30.4 pg 27.0 - 01/03 31.0 [facility] HEMATOLOGY MCHC 33.4 g/dL 32.0 - 01/03 36.0 [facility] HEMATOLOGY MPV 9.5 fL 7.4 - 10.4 01/03 [facility] HEMATOLOGY WBC 6.3 K/CMM 3.7 - 10.4 01/03 [facility] HEMATOLOGY Hgb 12.3 g/dL 12.0 - 01/03 16.0 /2015 [facility] HEMATOLOGY Hct 36.7 % 36.0 - 01/03 48.0 /2016 [facility] HEMATOLOGY RBC 4.03 M/CMM 4.20 - 01/03 5.40 /2015 [facility] HEMATOLOGY MCV 91.0 fL 80.0 - 01/03 98.0 /2015 [facility] Abdomen 2 Abdomen 2 EXAM: Abdomen 2 views DX 01/03 - views DX views [facility] HISTORY: Abdominal distension [facility] COMPARISON: 01/03/2016 Read by: Tuan Roberts MD [...] Small Small bowel Clinical history: Constipation. 01/02 [facility] bowel series DX - [facility] series DX Sex: Female. [facility] : 1950. Read by: Lex Gallo MD [...] PICC Line Placement. 01/02 - 1view DX [facility] : 1950. Read by: Lex Gallo MD [...] BUN 22 mg/dL 7 - 22 01/02 [facility] CHEM PANEL Calcium Lvl 8.3 mg/dL 8.5 - 10.5 01/02 [facility] CHEM PANEL Chloride Lvl 102 meq/L 95 - 109 01/02 [facility] CHEM PANEL Potassium 4.3 meq/L 3.5 - 5.1 01/02 Lvl [facility] CHEM PANEL Sodium Lvl 142 meq/L 135 - 145 01/02 [facility] CHEM PANEL Total 6.3 g/dL 6.4 - 8.4 01/02 [facility] CHEM PANEL Alk Phos 56 unit/L 39 - 136 01/02 [facility] CHEM PANEL Bili Total 1.0 mg/dL 0.2 - 1.3 01/02 [facility] CHEM PANEL eGFR 44 01/02 Result Comment: [...] is not recommended in the following populations: [address] Individuals with unstable creatinine concentrations, including [...] Lvl 124 mg/dL 70 - 99 01/02 [facility] CHEM PANEL Creatinine 1.29 mg/dL 0.50 - 01/02 Lvl 1.40 [facility] CHEM PANEL Albumin Lvl 3.5 g/dL 3.5 - 5.0 01/02 [facility] CHEM PANEL CO2 30 meq/L 24 - 32 08 [facility] CHEM PANEL ALT 124 unit/L 0 - 65 01/02 [facility] CHEM PANEL AST 148 unit/L 0 - 37 01/02 [facility] CHEM PANEL Globulin 2.8 g/dL 2.7 - 4.2 08 [facility] CHEM PANEL A/G Ratio 1.2 0.7 - 1.6 01/02 [facility] CHEM PANEL B/C Ratio 17 6 - 25 01/02 [facility] CHEM PANEL AGAP 14.3 meq/L 10.0 - 08 MH 20.0 [facility] HEMATOLOGY Basophils # 0.0 K/CMM 0.0 - 0.2 01/02 [facility] HEMATOLOGY Segs 76.1 % 45.0 - 01/02 MH 75.0 [facility] HEMATOLOGY Lymphocytes 1.4 K/CMM 1.0 - 5.5 01/02 [facility] HEMATOLOGY Segs-Bands # 8.3 K/CMM 1.5 - 8.1 01/02 [facility] HEMATOLOGY Basophils 0.2 % 0.0 - 1.0 01/02 [facility] HEMATOLOGY Eosinophils 0.3 K/CMM 0.0 - 0.5 01/02 [facility] HEMATOLOGY Monocytes # 0.9 K/CMM 0.0 - 0.8 01/02 [facility] HEMATOLOGY Eosinophils 2.4 % 0.0 - 4.0 01/02 [facility] HEMATOLOGY Monocytes 8.3 % 2.0 - 12.0 01/02 [facility] HEMATOLOGY Lymphocytes 13.0 % 20.0 - 01/02 MH 40.0 /2015 [facility] HEMATOLOGY INR 1.03 0.85 - 01/02 MH 1.17 [facility] HEMATOLOGY PTT 30.7 s 22.9 - 01/02 MH 35.8 [facility] HEMATOLOGY PT 13.8 s 12.0 - 01/02 MH 14.7 [facility] HEMATOLOGY MPV 9.0 fL 7.4 - 10.4 08 [facility] HEMATOLOGY Platelet 148 K/CMM 133 - 450 08 [facility] HEMATOLOGY WBC 10.9 K/CMM 3.7 - 10.4 08 /2015 [facility] HEMATOLOGY Hgb 13.6 g/dL 12.0 - 01/02 16.0 /2015 [facility] HEMATOLOGY RBC 4.44 M/CMM 4.20 - 01/02 5.40 /2015 [facility] HEMATOLOGY RDW 14.3 % 11.5 - 01/02 14.5 /2015 [facility] HEMATOLOGY MCHC 33.8 g/dL 32.0 - 01/02 36.0 /2015 [facility] HEMATOLOGY MCH 30.6 pg 27.0 - 01/02 MH 31.0 /2015 [facility] HEMATOLOGY Hct 40.2 % 36.0 - 01/02 MH 48.0 /2015 [facility] HEMATOLOGY MCV 90.6 fL 80.0 - 01/02 98.0 [facility] URINE AND UA Mucus Few /LPF None Seen 01/02 MH STOOL /LPF /2015 [facility] URINE AND UA Hyal Cast 15 /LPF 0 - 2 01/02 [facility] URINE AND UA Color Nimco 01/02 STOOL [facility] URINE AND UA RBC 2 /HPF 0 - 2 01/02 STOOL [facility] URINE AND UA WBC 2 /HPF 0 - 5 01/02 [facility] URINE AND UA Sq Epi Many /LPF Few /LPF 01/02 STOOL [facility] URINE AND UA Bacteria Occasional None Seen 01/02 STOOL /HPF /HPF /2015 [facility] URINE AND UA Leuk Est Negative Negative 01/02 [facility] (01/03/16 3:42 AM) [facility] URINE AND UA <=1.0 0.1 - 1.0 01/02 STOOL Urobilinogen mg/dL [facility] URINE AND UA Ketones Negative 01/02 [facility] URINE AND UA Bili Negative Negative 01/02 STOOL [facility] *NA* [facility] (01/03/16 3:42 AM) URINE AND UA Glucose Negative Negative 01/02 STOOL mg/dL mg/dL [facility] URINE AND UA Blood Negative Negative 01/02 STOOL [facility] (01/03/16 3:42 AM) [facility] URINE AND UA Nitrite Negative Negative 01/02 STOOL [facility] (01/03/16 3:42 AM) [facility] URINE AND UA pH 5.0 5.0 - 8.0 01/02 [facility] URINE AND UA Protein Negative Negative 01/02 STOOL mg/dL mg/dL /2015 [facility] URINE AND UA Turbidity Marked Clear 01/02 STOOL [facility] *ABN* [facility] (01/03/16 3:42 AM) URINE AND UA Spec Grav 1.026 <=1.030 01/02 STOOL [facility] Abdomen 2 Abdomen 2 CLINICAL HISTORY:Vomiting. 01/02 - views DX views DX - [facility] :1950. [facility] Sex:Female. Read by: Lex Gallo MD Dictated [...] Ratio 0.9 0.7 - 1.6 06/18 Normal [facility] CHEMISTRY Globulin 3.2 g/dL 2.0 - 4.0 06/18 Normal [facility] CHEMISTRY B/C Ratio 13 6 - 25 06/18 Normal [facility] CHEMISTRY AGAP 12.6 meq/L 10.0 - 06/18 Normal 20.0 [facility] CHEMISTRY eGFR 69 06/18 1Result Comment: [...] is not recommended in the following populations: [facility] 3m2 Individuals with unstable creatinine concentrations, [...] values reflect the clinical guidelines of the [place] [employer]. [facility] CHEMISTRY Alk Phos 73 unit/L 39 - 136 06/18 Normal [facility] CHEMISTRY Albumin Lvl 2.9 g/dL 3.5 - 5.0 06/18 LOW [facility] CHEMISTRY Bili Total 0.3 mg/dL 0.2 - 1.3 06/18 Normal [facility] CHEMISTRY Calcium Lvl 8.2 mg/dL 8.5 - 10.5 06/18 LOW [facility] CHEMISTRY Chloride Lvl 110 meq/L 95 - 109 06/18 HI [facility] CHEMISTRY Potassium 3.6 meq/L 3.5 - 5.1 06/18 Normal Lv [facility] CHEMISTRY CO2 25 meq/L 24 - 32 06/18 Normal [facility] CHEMISTRY Sodium Lvl 144 meq/L 135 - 145 06/18 Normal [facility] CHEMISTRY ALANINE 21 unit/L 0 - 65 06/18 Normal AMINOTRANS [facility] RAS CHEMISTRY Creatinine 0.9 mg/dL 0.5 - 1.4 06/18 Normal l [facility] CHEMISTRY BUN 12 mg/dL 7 - 22 06/18 Normal [facility] CHEMISTRY ASPARTATE 12 unit/L 0 - 37 06/18 Normal TRANSAMINASE [facility] CHEMISTRY Total 6.1 g/dL 6.4 - 8.4 06/18 LOW Protein [facility] HEMATOLOGY Monocytes 7.7 % 2.0 - 12.0 06/18 Normal [facility] HEMATOLOGY Lymphocytes 33.5 % 20.0 - 06/18 Normal [facility] 40.0 [facility] HEMATOLOGY Basophils 1.3 % 0.0 - 1.0 06/18 HI [facility] HEMATOLOGY Segs-Bands # 2.9 K/CMM 1.5 - 8.1 06/18 Normal [facility] HEMATOLOGY Eosinophils 10.4 % 0.0 - 4.0 06/18 HI [facility] HEMATOLOGY Monocytes # 0.5 K/CMM 0.0 - 0.8 06/18 Normal [facility] HEMATOLOGY Lymphocytes 2.0 K/CMM 1.0 - 5.5 06/18 Normal [facility] # [facility] HEMATOLOGY Eosinophils 0.6 K/CMM 0.0 - 0.5 06/18 HI [facility] # /2014 [facility] HEMATOLOGY Basophils # 0.1 K/CMM 0.0 - 0.2 06/18 Normal /2013 [facility] HEMATOLOGY Segs 47.1 % 45.0 - 06/18 Normal 75.0 /2013 [facility] HEMATOLOGY MCV 86.0 fL 81.0 - 06/18 Normal 99.0 /2013 [facility] HEMATOLOGY Hgb 9.6 g/dL 12.0 - 06/18 LOW 16.0 /2013 [facility] HEMATOLOGY Hct 28.9 % 36.0 - 06/18 LOW 48.0 /2013 [facility] HEMATOLOGY MCH 28.8 pg 27.0 - 06/18 Normal 31.0 /2013 [facility] HEMATOLOGY MCHC 33.5 g/dL 32.0 - 06/18 Normal 36.0 /2013 [facility] HEMATOLOGY WBC X 10x3 6.1 K/CMM 3.7 - 10.4 06/18 Normal [facility] HEMATOLOGY RBC X 10x6 3.36 M/CMM 4.20 - 06/18 LOW 5.40 /2013 [facility] HEMATOLOGY MPV 9.6 fL 7.4 - 10.4 06/18 Normal [facility] HEMATOLOGY RDW 16.4 % 11.5 - 06/18 HI 14.5 /2013 [facility] HEMATOLOGY Platelet 221 K/CMM 133 - 450 06/18 Normal [facility] HEMATOLOGY Sed Rate 70 mm/h 0 - 20 06/18 HI [facility] CHEMISTRY Vanco Tr 11.2 ug/ml 06/15 5Interpretive Data: Therapeutic Range: Trough: 10 - 20 ug/mL [facility] Peak: 20 - 40 ug/mL Potential Toxicity: >80 ug/mL CHEMISTRY Vanco Tr TND 0130 06/15 [facility] URINALYSIS UA null 0.1 - 1.0 06/14 Urobilinogen /2013 [facility] URINALYSIS UA Hyal Cast 2 /LPF 0 - 2 06/14 Normal [facility] URINALYSIS UA Bacteria Occasional None Seen 06/14 /HPF [facility] URINALYSIS UA RBC 7 /HPF 0 - 2 06/14 HI [facility] URINALYSIS UA Mucus Few /LPF None Seen 06/14 [facility] URINALYSIS UA Leuk Est Negative Negative 06/14 Normal [facility] (06/14/2013 09:45:34) URINALYSIS UA Sq Epi Few /LPF Few 06/14 [facility] URINALYSIS UA WBC 4 /HPF 0 - 5 06/14 Normal [facility] URINALYSIS UA Bili Negative Negative 06/14 [facility] *NA* (06/14/2013 09:45:34) URINALYSIS UA Blood Negative Negative 06/14 Normal [facility] (06/14/2013 09:45:34) URINALYSIS UA Nitrite Negative Negative 06/14 Normal [facility] (06/14/2013 09:45:34) URINALYSIS UA Protein 20 mg/dL Negative 06/14 ABN [facility] URINALYSIS UA Glucose Negative Negative 06/14 mg/dL [facility] URINALYSIS UA Ketones Negative Negative 06/14 mg/dL [facility] URINALYSIS UA pH 5.5 5.0 - 8.0 06/14 Normal [facility] URINALYSIS UA Spec Grav 1.009 <=1.030 06/14 Normal [facility] URINALYSIS UA Turbidity Clear Clear 06/14 Normal [facility] (06/14/2013 09:45:34) URINALYSIS UA Color Light Yellow Yellow 06/14 [facility] *NA* (06/14/2013 09:45:34) CHEMISTRY AGAP 15.0 meq/L 10.0 - 06/14 Normal 20.0 [facility] CHEMISTRY Globulin 3.4 g/dL 2.0 - 4.0 06/14 Normal [facility] CHEMISTRY B/C Ratio 13 6 - 25 06/14 Normal [facility] CHEMISTRY A/G Ratio 0.8 0.7 - 1.6 06/14 Normal [facility] CHEMISTRY eGFR 69 06/14 2Result Comment: [...] is not recommended in the following populations: [facility] 3m2 Individuals with unstable creatinine concentrations, [...] g/dL 3.5 - 5.0 06/14 LOW MH [facility] CHEMISTRY Glucose Lvl 97 mg/dL 70 - 99 06/14 Normal 4Interpretive Data: Adult reference range values reflect the clinical guidelines of the [place] [employer]. [facility] CHEMISTRY Creatinine 0.9 mg/dL 0.5 - 1.4 06/14 Normal Lvl [facility] CHEMISTRY Alk Phos 78 unit/L 39 - 136 06/14 Normal [facility] CHEMISTRY BUN 12 mg/dL 7 - 22 06/14 Normal [facility] CHEMISTRY Potassium 4.0 meq/L 3.5 - 5.1 06/14 Normal Lvl [facility] CHEMISTRY Chloride Lvl 107 meq/L 95 - 109 06/14 Normal [facility] CHEMISTRY CO2 24 meq/L 24 - 32 06/14 Normal [facility] CHEMISTRY Calcium Lvl 8.2 mg/dL 8.5 - 10.5 06/14 LOW MH [facility] CHEMISTRY Sodium Lvl 142 meq/L 135 - 145 06/14 Normal [facility] CHEMISTRY Bili Total 0.3 mg/dL 0.2 - 1.3 06/14 Normal [facility] CHEMISTRY Total 6.1 g/dL 6.4 - 8.4 06/14 LOW Protein [facility] CHEMISTRY ASPARTATE 17 unit/L 0 - 37 06/14 Normal TRANSAMINASE [facility] CHEMISTRY ALANINE 17 unit/L 0 - 65 06/14 Normal AMINOTRANSFE [facility] RAS HEMATOLOGY Lymphocytes 1.6 K/CMM 1.0 - 5.5 06/14 Normal # [facility] HEMATOLOGY Monocytes # 0.6 K/CMM 0.0 - 0.8 06/14 Normal [facility] HEMATOLOGY Basophils 0.7 % 0.0 - 1.0 06/14 Normal [facility] HEMATOLOGY Eosinophils 0.6 K/CMM 0.0 - 0.5 06/14 HI MH # [facility] HEMATOLOGY Segs-Bands # 3.8 K/CMM 1.5 - 8.1 06/14 Normal [facility] HEMATOLOGY Basophils # 0.0 K/CMM 0.0 - 0.2 06/14 Normal MH /2013 [facility] HEMATOLOGY Eosinophils 9.1 % 0.0 - 4.0 06/14 HI MH /2013 [facility] HEMATOLOGY Monocytes 8.6 % 2.0 - 12.0 06/14 Normal MH /2013 [facility] HEMATOLOGY Segs 57.0 % 45.0 - 06/14 Normal MH 75.0 /2013 [facility] HEMATOLOGY Lymphocytes 24.6 % 20.0 - 06/14 Normal MH 40.0 [facility] HEMATOLOGY Hgb 9.6 g/dL 12.0 - 06/14 LOW MH 16.0 [facility] HEMATOLOGY RBC X 10x6 3.33 M/CMM 4.20 - 06/14 LOW MH 5.40 /2013 [facility] HEMATOLOGY Hct 28.5 % 36.0 - 06/14 LOW MH 48.0 /2013 [facility] HEMATOLOGY WBC X 10x3 6.6 K/CMM 3.7 - 10.4 06/14 Normal MH [facility] HEMATOLOGY MPV 9.8 fL 7.4 - 10.4 06/14 Normal [facility] Platelet 196 K/CMM 133 - 450 06/14 Normal MH [facility] HEMATOLOGY RDW 16.0 % 11.5 - 06/14 HI MH 14.5 [facility] HEMATOLOGY MCH 28.9 pg 27.0 - 06/14 Normal MH 31.0 [facility] HEMATOLOGY MCHC 33.8 g/dL 32.0 - 06/14 Normal MH 36.0 [facility] HEMATOLOGY MCV 85.6 fL 81.0 - 06/14 Normal MH 99.0 /2013 [facility] CHEMISTRY Calcium Lvl 8.2 mg/dL 8.5 - 10.5 06/12 LOW MH [facility] CHEMISTRY eGFR 69 06/12 4Result Comment: [...] is not recommended in the following populations: [facility] 3m2 Individuals with unstable creatinine concentrations, [...] 140 meq/L 135 - 145 06/12 Normal [facility] CHEMISTRY Potassium 4.0 meq/L 3.5 - 5.1 06/12 Normal [facility] CHEMISTRY BUN 14 mg/dL 7 - 22 06/12 Normal [facility] CHEMISTRY Creatinine 0.9 mg/dL 0.5 - 1.4 06/12 Normal [facility] CHEMISTRY CO2 28 meq/L 24 - 32 06/12 Normal [facility] CHEMISTRY Chloride Lvl 104 meq/L 95 - 109 06/12 Normal [facility] CHEMISTRY Glucose Lvl 82 mg/dL 70 - 99 06/12 Normal 7Interpretive Data: Adult reference range values reflect the clinical guidelines of the [place] [employer]. [facility] CHEMISTRY AGAP 12.0 meq/L 10.0 - 06/12 Normal 20.0 [facility] HEMATOLOGY Polychrom Slight None Seen 06/12 Normal [facility] (06/12/2013 05:00:00) HEMATOLOGY Target Cell Slight None Seen 06/12 ABN [facility] *ABN* (06/12/2013 05:00:00) HEMATOLOGY Tear Cell Slight None Seen 06/12 ABN [facility] *ABN* (06/12/2013 05:00:00) HEMATOLOGY [place] Cell Slight None Seen 06/12 ABN [facility] *ABN* (06/12/2013 05:00:00) HEMATOLOGY Monocytes # 0.8 K/CMM 0.0 - 0.8 06/12 Normal [facility] HEMATOLOGY Eosinophils 0.5 K/CMM 0.0 - 0.5 06/12 Normal [facility] HEMATOLOGY Segs-Bands # 4.3 K/CMM 1.5 - 8.1 06/12 Normal [facility] HEMATOLOGY Lymphocytes 1.8 K/CMM 1.0 - 5.5 06/12 Normal [facility] HEMATOLOGY Segs 57.7 % 45.0 - 06/12 Normal 75.0 [facility] HEMATOLOGY Plt Morph Normal 06/12 Normal [facility] (06/12/2013 05:00:00) HEMATOLOGY Hypochrom Slight None Seen 06/12 Normal [facility] (06/12/2013 05:00:00) HEMATOLOGY Macrocyte 1+ None Seen 06/12 ABN MH /2013 [facility] *ABN* (06/12/2013 05:00:00) HEMATOLOGY Basophils # 0.1 K/CMM 0.0 - 0.2 06/12 Normal MH [facility] HEMATOLOGY Basophils 0.8 % 0.0 - 1.0 06/12 Normal [facility] HEMATOLOGY Eosinophils 6.6 % 0.0 - 4.0 06/12 HI MH [facility] HEMATOLOGY Lymphocytes 24.6 % 20.0 - 06/12 Normal 40.0 /2013 [facility] HEMATOLOGY Monocytes 10.3 % 2.0 - 12.0 06/12 Normal MH [facility] HEMATOLOGY WBC X 10x3 7.4 K/CMM 3.7 - 10.4 06/12 Normal [facility] HEMATOLOGY Hgb 9.4 g/dL 12.0 - 06/12 LOW 16.0 [facility] HEMATOLOGY RBC X 10x6 3.21 M/CMM 4.20 - 06/12 LOW 5.40 /2013 [facility] HEMATOLOGY MCH 29.3 pg 27.0 - 06/12 Normal 31.0 [facility] HEMATOLOGY MCV 87.7 fL 81.0 - 06/12 Normal 99.0 [facility] HEMATOLOGY Hct 28.2 % 36.0 - 06/12 LOW 48.0 [facility] HEMATOLOGY MPV 9.5 fL 7.4 - 10.4 06/12 Normal MH [facility] HEMATOLOGY RDW 15.5 % 11.5 - 06/12 HI 14.5 [facility] HEMATOLOGY MCHC 33.5 g/dL 32.0 - 06/12 Normal 36.0 /2013 [facility] HEMATOLOGY Platelet 192 K/CMM 133 - 450 06/12 Normal [facility] CHEMISTRY Magnesium 2.0 mg/dL 1.8 - 2.4 06/11 Normal Lvl [facility] CHEMISTRY Phosphorus 3.6 mg/dL 2.5 - 4.5 06/11 Normal [facility] BEDSIDE Glucose POC 103 mg/dL 70 - 99 06/11 HI 1Interpretive GLUCOSE Data: [facility] TESTING Upper Reportable Limit: 200 mg/dL. BEDSIDE Gluc POC Notified 06/11 GLUCOSE Comment 1 RN/MD /2013 [facility] TESTING BEDSIDE Glucose POC 108 mg/dL 70 - 99 06/10 HI 2Interpretive GLUCOSE Data: [facility] TESTING Upper Reportable Limit: 200 mg/dL. BEDSIDE Gluc POC Notified 06/10 GLUCOSE Comment 1 RN/ /2013 [facility] TESTING BEDSIDE Glucose POC 110 mg/dL 70 - 99 06/10 HI 3Interpretive GLUCOSE Data: [facility] TESTING Upper Reportable Limit: 200 mg/dL. CHEMISTRY Magnesium 2.1 mg/dL 1.8 - 2.4 06/10 Normal Lvl [facility] CHEMISTRY Phosphorus 3.5 mg/dL 2.5 - 4.5 06/10 Normal [facility] CHEMISTRY eGFR 80 06/10 5Result Comment: [...] not recommended in the following populations: [address] Individuals with unstable creatinine concentrations, including [...] 8.2 mg/dL 8.5 - 10.5 06/10 LOW [facility] CHEMISTRY AGAP 9.8 meq/L 10.0 - 06/10 LOW 20.0 [facility] CHEMISTRY CO2 31 meq/L 24 - 32 06/10 Normal [facility] CHEMISTRY Potassium 3.8 meq/L 3.5 - 5.1 06/10 Normal l [facility] CHEMISTRY Chloride Lvl 105 meq/L 95 - 109 06/10 Normal [facility] CHEMISTRY Creatinine 0.8 mg/dL 0.5 - 1.4 06/10 Normal l [facility] CHEMISTRY Sodium Lvl 142 meq/L 135 - 145 06/10 Normal [facility] CHEMISTRY BUN 18 mg/dL 7 - 22 06/10 Normal [facility] CHEMISTRY Glucose Lvl 113 mg/dL 70 - 99 06/10 HI 8Interpretive Data: Adult reference range values reflect the clinical guidelines of the [place] [employer]. [facility] BEDSIDE Gluc POC Notified 06/10 GLUCOSE Comment 1 RN/ /2013 [facility] TESTING CHEMISTRY Phosphorus 3.3 mg/dL 2.5 - 4.5 06/09 Normal [facility] CHEMISTRY Calcium Lvl 7.9 mg/dL 8.5 - 10.5 06/09 LOW [facility] CHEMISTRY CO2 30 meq/L 24 - 32 06/09 Normal [facility] CHEMISTRY AGAP 12.5 meq/L 10.0 - 06/09 Normal 20. [facility] CHEMISTRY eGFR 69 06/09 6Result Comment: [...] is not recommended in the following populations: [facility] 3m2 Individuals with unstable creatinine concentrations, [...] values reflect the clinical guidelines of the [place] [employer]. [facility] CHEMISTRY BUN 17 mg/dL 7 - 22 06/09 Normal [facility] CHEMISTRY Sodium Lvl 140 meq/L 135 - 145 06/09 Normal [facility] CHEMISTRY Creatinine 0.9 mg/dL 0.5 - 1.4 06/09 Normal Lv [facility] CHEMISTRY Chloride Lvl 101 meq/L 95 - 109 06/09 Normal [facility] CHEMISTRY Potassium 3.5 meq/L 3.5 - 5.1 06/09 Normal Lv [facility] CHEMISTRY Magnesium 2.0 mg/dL 1.8 - 2.4 06/09 Normal Lvl [facility] IMMUNOLOGY Prealbumin 7.8 mg/dL 18.0 - 06/09 LOW 45.0 [facility] CHEMISTRY Trig 123 mg/dL <=149 06/08 Normal [facility] CHEMISTRY Alk Phos 63 unit/L 39 - 136 06/08 Normal [facility] CHEMISTRY ASPARTATE 7 unit/L 0 - 37 06/08 Normal TRANSAMINASE [facility] CHEMISTRY Bili Total 0.5 mg/dL 0.2 - 1.3 06/08 Normal [facility] CHEMISTRY B/C Ratio 20 6 - 25 06/08 Normal [facility] CHEMISTRY Total 5.5 g/dL 6.4 - 8.4 06/08 LOW Protein [facility] CHEMISTRY Globulin 3.3 g/dL 2.0 - 4.0 06/08 Normal [facility] CHEMISTRY A/G Ratio 0.7 0.7 - 1.6 06/08 Normal [facility] CHEMISTRY Albumin Lvl 2.2 g/dL 3.5 - 5.0 06/08 LOW [facility] CHEMISTRY ALANINE 6 unit/L 0 - 65 06/08 Normal AMINOTRANS [facility] RAS HEMATOLOGY Segs-Bands # 6.8 K/CMM 1.5 - 8.1 06/08 Normal [facility] HEMATOLOGY Basophils 0.5 % 0.0 - 1.0 06/08 Normal [facility] HEMATOLOGY Eosinophils 4.1 % 0.0 - 4.0 06/08 HI MH [facility] HEMATOLOGY Monocytes # 0.7 K/CMM 0.0 - 0.8 06/08 Normal [facility] HEMATOLOGY Lymphocytes 1.2 K/CMM 1.0 - 5.5 06/08 Normal MH # [facility] HEMATOLOGY Monocytes 8.0 % 2.0 - 12.0 06/08 Normal [facility] HEMATOLOGY Lymphocytes 12.8 % 20.0 - 06/08 LOW 40.0 [facility] HEMATOLOGY Basophils # 0.0 K/CMM 0.0 - 0.2 06/08 Normal [facility] HEMATOLOGY Eosinophils 0.4 K/CMM 0.0 - 0.5 06/08 Normal MH # [facility] HEMATOLOGY Segs 74.6 % 45.0 - 06/08 Normal 75.0 /2013 [facility] HEMATOLOGY MCHC 34.2 g/dL 32.0 - 06/08 Normal 36.0 /2013 [facility] HEMATOLOGY MCH 29.0 pg 27.0 - 06/08 Normal 31.0 /2013 [facility] HEMATOLOGY RDW 15.6 % 11.5 - 06/08 HI MH 14.5 [facility] HEMATOLOGY MPV 9.9 fL 7.4 - 10.4 06/08 Normal /2013 [facility] HEMATOLOGY Platelet 141 K/CMM 133 - 450 06/08 Normal [facility] HEMATOLOGY MCV 84.8 fL 81.0 - 06/08 Normal 99.0 /2013 [facility] HEMATOLOGY Hct 27.3 % 36.0 - 06/08 LOW 48.0 /2013 [facility] HEMATOLOGY WBC X 10x3 9.1 K/CMM 3.7 - 10.4 06/08 Normal [facility] HEMATOLOGY RBC X 10x6 3.21 M/CMM 4.20 - 06/08 LOW 5.40 /2013 [facility] HEMATOLOGY Hgb 9.3 g/dL 12.0 - 06/08 LOW 16.0 /2013 [facility] CHEMISTRY Vanco Tr TND 1500 06/07 [facility] CHEMISTRY Vanco Tr 4.7 ug/ml 06/07 10Interpretive Data: Therapeutic Range: Trough: 10 - 20 ug/mL [facility] Peak: 20 - 40 ug/mL Potential Toxicity: >80 ug/mL HEMATOLOGY aPTT 33.8 s 22.9 - 06/07 Normal 12Interpretiv 35.8 e Data: [facility] Heparin Therapeutic Range: 57 - 92 Seconds HEMATOLOGY INR 1.25 0.85 - 06/07 [place] 11Interpretive Data: RECOMMENDED RANGES FOR PROTIME INR: . 2.0-3.0 for most medical and surgical thromboembolic states. [facility] 2.5-3.5 for artificial heart valves and recurrent embolism. INR SHOULD BE USED ONLY FOR PATIENTS ON STABLE ANTICOAGULANT THERAPY. HEMATOLOGY PROTIME 15.6 s 12.0 - 06/07 [facility] 14.7 [facility] HEMATOLOGY FSP >=5 <20 <5 06/07 ABN MH ug/ml /2013 [facility] HEMATOLOGY Fibrinogen 694 mg/dL 230 - 510 06/07 HI Lvl [facility] HEMATOLOGY MPV 9.7 fL 7.4 - 10.4 06/07 Normal [facility] HEMATOLOGY RDW 15.5 % 11.5 - 06/07 HI 14.5 [facility] HEMATOLOGY Platelet 139 K/CMM 133 - 450 06/07 Normal [facility] HEMATOLOGY MCH 27.9 pg 27.0 - 06/07 Normal 31.0 /2013 [facility] HEMATOLOGY MCHC 33.0 g/dL 32.0 - 06/07 Normal 36.0 /2013 [facility] HEMATOLOGY MCV 84.5 fL 81.0 - 06/07 Normal 99.0 /2013 [facility] HEMATOLOGY Hgb 9.5 g/dL 12.0 - 06/07 LOW 16.0 /2013 [facility] HEMATOLOGY Hct 28.7 % 36.0 - 01 LOW 48.0 /2013 [facility] HEMATOLOGY WBC X 10x3 11.0 K/CMM 3.7 - 10.4 06/07 HI /2013 [facility] HEMATOLOGY RBC X 10x6 3.40 M/CMM 4.20 - 01 LOW 5.40 /2013 [facility] BLOOD BANK RBC product Product available 06/06 Normal RESULTS /2013 [facility] (06/06/2013 12:03:00) HEMATOLOGY aPTT 36.6 s 22.9 - 06/06 HI 13Interpretiv MH 35.8 /2013 e Data: [facility] Heparin Therapeutic Range: 57 - 92 Seconds CHEMISTRY ALANINE 19 unit/L 0 - 65 06/05 Normal AMINOTRANS [facility] RASE CHEMISTRY Albumin Lvl 3.0 g/dL 3.5 - 5.0 06/05 LOW [facility] CHEMISTRY ASPARTATE 14 unit/L 0 - 37 06/05 Normal TRANSAMINASE [facility] CHEMISTRY Total 5.7 g/dL 6.4 - 8.4 06/05 LOW Protein [facility] CHEMISTRY Bili Total 0.5 mg/dL 0.2 - 1.3 06/05 Normal [facility] CHEMISTRY B/C Ratio 8 6 - 25 06/05 Normal [facility] CHEMISTRY A/G Ratio 1.1 0.7 - 1.6 06/05 Normal [facility] CHEMISTRY Globulin 2.7 g/dL 2.0 - 4.0 06/05 Normal [facility] CHEMISTRY Alk Phos 51 unit/L 39 - 136 06/05 Normal [facility] HEMATOLOGY Segs-Bands # 12.9 K/CMM 1.5 - 8.1 06/04 FL [facility] HEMATOLOGY Segs 71.0 % 45.0 - 06/04 Normal 75.0 /2013 [facility] HEMATOLOGY Bands 7.0 % 0.0 - 11.0 06/04 Normal [facility] HEMATOLOGY Lymphocytes 2.6 K/CMM 1.0 - 5.5 06/04 Normal # /2013 [facility] HEMATOLOGY Basophils # 0.5 K/CMM 0.0 - 0.2 06/04 HI [facility] HEMATOLOGY Monocytes # 0.5 K/CMM 0.0 - 0.8 06/04 Normal MH [facility] HEMATOLOGY Stomatocyte Slight None Seen 06/04 ABN MH [facility] *ABN* (06/04/2013 15:45:01) HEMATOLOGY Basophils 3.0 % 0.0 - 1.0 06/04 HI MH [facility] HEMATOLOGY Monocytes 3.0 % 2.0 - 12.0 06/04 Normal MH [facility] HEMATOLOGY Lymphocytes 9.0 % 20.0 - 06/04 LOW MH 40.0 [facility] HEMATOLOGY Atypical 7.0 % <=0.0 06/04 HI MH Lymphs [facility] HEMATOLOGY Plt Morph Normal 06/04 Normal MH [facility] (06/04/2013 15:45:01) BLOOD BANK RBC product Product available 06/04 Normal MH RESULTS [facility] (06/04/2013 12:06:00) BLOOD BANK ABO/Rh O POS 06/03 MH RESULTS [facility] BLOOD BANK Antibody Negative 06/03 Normal RESULTS Scrn [facility] (06/03/2013 05:45:00) CVC insert CVC insert Central venous catheter placement: 06/03 - non-tunnel non-tunnel - [facility] age 5+ yrs age 5+ yrs [...] ultrasound guidance and Seldinger technique a 7 [place] triple lumen catheter was introduced into the left internal jugular vein. A hardcopy ultrasound image was obtained during this proceedure. Under fluoroscopic guidance the tip of the catheter was positio chiid within the junction of the vena cava and right atrium. . A spot film of the chest was obtained. The patient tolerated the procedure well. There were no immediate complications.Maximum barrier sterile technique was utilized for this proceedure fluoro time : 0.1 minute SL: 14 Chest Chest 1view PORTABLE CHEST 05/31/2013 AT 1805 HOURS. 05/31 - - [facility] INDICATION: PICC placement. Read by: Petros [...] 1.32 ng/mL 0.60 - 05/31 Normal 1.81 [facility] CHEMISTRY TSH 8.430 0.360 - 05/31 HI uIU/mL 3.740 [facility] CHEMISTRY T4 9.0 ug/dl 4.7 - 13.3 05/31 Normal /2013 [facility] Abdomen/Pe Abdomen/Pelv CT abdomen and pelvis without IV contrast, May 31, 2013 01:20:00 PM 05/31 - lvis wo IV is IV /2013 - [facility] contrast contrast CT CT CLINICAL HISTORY: [...] 09/20 Normal 2Interpretive GLUCOSE Lifscn /2011 Data: [facility] TESTING Upper Reportable Limit: 200 mg/dL. BEDSIDE Comment1 Notify 09/20 NA GLUCOSE RN/MD /2011 [facility] TESTING BEDSIDE Comment2 Assess 09/20 NA GLUCOSE Patient /2011 [facility] TESTING BEDSIDE Comment2 Assess 09/20 NA GLUCOSE Patient /2011 [facility] TESTING BEDSIDE Comment1 Notify 09/20 NA GLUCOSE RN/MD /2011 [facility] TESTING BEDSIDE Gluc POC 107 mg/dL 70 - 99 09/20 [place] 3Interpretive GLUCOSE Lifscn Data: [facility] TESTING Upper Reportable Limit: 200 mg/dL. CHEMISTRY Magnesium 1.6 mg/dL 1.8 - 2.4 09/20 LOW Lv [facility] CHEMISTRY Creatinine 1.2 mg/dL 0.5 - 1.4 09/20 Normal Lvl [facility] CHEMISTRY BUN 19 mg/dL 7 - 22 09/20 Normal [facility] CHEMISTRY Glucose Lvl 94 mg/dL 70 - 99 09/20 Normal 5Interpretive Data: Adult [facility] reference range values reflect the clinical guidelinesof the [place] [employer]. CHEMISTRY Calcium Lvl 7.9 mg/dL 8.5 - 10.5 09/20 LOW [facility] CHEMISTRY Potassium 3.9 meq/L 3.5 - 5.1 09/20 Normal Lvl [facility] CHEMISTRY Sodium Lvl 146 meq/L 135 - 145 09/20 HI [facility] CHEMISTRY CO2 24 meq/L 24 - 32 09/20 Normal [facility] CHEMISTRY Chloride Lvl 110 meq/L 95 - 109 09/20 HI [facility] CHEMISTRY AGAP 15.9 meq/L 10.0 - 09/20 Normal 20.0 [facility] HEMATOLOGY Monocytes # 0.9 K/CMM 0.0 - 0.8 09/20 HI MH [facility] HEMATOLOGY Eosinophils 0.6 K/CMM 0.0 - 0.5 09/20 HI MH # /2011 [facility] HEMATOLOGY Basophils # 0.0 K/CMM 0.0 - 0.2 09/20 Normal MH /2011 [facility] HEMATOLOGY Lymphocytes 1.9 K/CMM 1.0 - 5.5 09/20 Normal MH # /2011 [facility] HEMATOLOGY Eosinophils 6.7 % 0.0 - 4.0 09/20 HI MH /2011 [facility] HEMATOLOGY Basophils 0.4 % 0.0 - 1.0 09/20 Normal [facility] HEMATOLOGY Segs-Bands # 4.9 K/CMM 1.5 - 8.1 09/20 Normal [facility] HEMATOLOGY Lymphocytes 22.7 % 20.0 - 09/20 Normal MH 40.0 /2011 [facility] HEMATOLOGY Monocytes 10.5 % 2.0 - 12.0 09/20 Normal MH /2011 [facility] HEMATOLOGY Segs 59.7 % 45.0 - 09/20 Normal 75.0 /2011 [facility] HEMATOLOGY RBC 3.15 M/CMM 4.20 - 09/20 LOW 5.40 /2011 [facility] WBC 8.2 K/CMM 3.7 - 10.4 09/20 Normal [facility] Hct 28.1 % 36.0 - 09/20 LOW 48.0 [facility] HEMATOLOGY RDW 14.5 % 11.5 - 09/20 Normal 14.5 [facility] MCH 30.3 pg 27.0 - 09/20 Normal 31.0 [facility] MCV 89.4 fL 81.0 - 09/20 Normal 99.0 [facility] MCHC 33.9 g/dL 32.0 - 09/20 Normal 36.0 [facility] Hgb 9.5 g/dL 12.0 - 09/20 LOW 16.0 [facility] HEMATOLOGY MPV 9.1 fL 7.4 - 10.4 09/20 Normal MH [facility] HEMATOLOGY Platelet 152 K/CMM 133 - 450 09/20 Normal [facility] HEMATOLOGY PTT 29.9 s 22.9 - 09/20 Normal 21Interpretiv MH 35.8 /2011 e Data: [facility] Heparin Therapeutic Range: 57 - 92 Seconds HEMATOLOGY INR 1.23 0.85 - 09/20 [place] 18Interpretiv MH 1.17 e Data: [facility] RECOMMENDED RANGES FOR PROTIME INR: 2.0-3.0 for most medical and surgical thromboemboli c states. 2.5-3.5 for artificial heart valves and recurrent embolism.INR SHOULD BE USED ONLY FOR PATIENTS ON STABLE ANTICOAGULANT THERAPY. HEMATOLOGY PT 15.5 s 12.0 - 09/20 [facility] 14.7 [facility] Microbiolo Culture: 09/20 gy Urine [facility] BEDSIDE Gluc POC 97 mg/dL 70 - 99 09/20 Normal 4Interpretive GLUCOSE Lifscn Data: [facility] TESTING Upper Reportable Limit: 200 mg/dL. BEDSIDE Comment1 Notify 09/20 NA GLUCOSE RN/MD [facility] TESTING CHEMISTRY Magnesium 1.7 mg/dL 1.8 - 2.4 09/19 LOW Lvl [facility] CHEMISTRY AGAP 17.4 meq/L 10.0 - 09/19 Normal 20.0 [facility] CHEMISTRY Chloride Lvl 112 meq/L 95 - 109 09/19 HI [facility] CHEMISTRY CO2 20 meq/L 24 - 32 09/19 LOW [facility] CHEMISTRY Sodium Lvl 146 meq/L 135 - 145 09/19 [facility] CHEMISTRY Potassium 3.4 meq/L 3.5 - 5.1 09/19 LOW Lvl [facility] CHEMISTRY Creatinine 1.3 mg/dL 0.5 - 1.4 09/19 Normal Lvl [facility] CHEMISTRY Calcium Lvl 8.1 mg/dL 8.5 - 10.5 09/19 LOW [facility] CHEMISTRY BUN 23 mg/dL 7 - 09/19 [place] MH [facility] CHEMISTRY Glucose Lvl 112 mg/dL 70 - 99 09/19 [place] 6Interpretive MH Data: Adult [facility] reference range values reflect the clinical guidelinesof the [place] [employer]. CHEMISTRY Ammonia 28.0 <=45.0 09/19 Normal umol/L [facility] CHEMISTRY T4 9.9 ug/dl 4.7 - 13.3 09/19 Normal [facility] CHEMISTRY T3 Total 0.64 ng/mL 0.50 - 09/19 Normal 1.48 [facility] HEMATOLOGY INR 1.18 0.85 - 09/19 [place] 19Interpretiv 1.17 e Data: [facility] RECOMMENDED RANGES FOR PROTIME INR: 2.0-3.0 for most medical and surgical thromboemboli c states. 2.5-3.5 for artificial heart valves and recurrent embolism.INR SHOULD BE USED ONLY FOR PATIENTS ON STABLE ANTICOAGULANT THERAPY. HEMATOLOGY PT 15.0 s 12.0 - 09/19 [facility] 14.7 [facility] HEMATOLOGY PTT 32.0 s 22.9 - 09/19 Normal 22Interpretiv MH 35.8 /2011 e Data: [facility] Heparin Therapeutic Range: 57 - 92 Seconds HEMATOLOGY RDW 14.8 % 11.5 - 09/19 [place] 14.5 [facility] HEMATOLOGY MCHC 33.5 g/dL 32.0 - 09/19 Normal 36.0 /2011 [facility] HEMATOLOGY Platelet 169 K/CMM 133 - 450 09/19 Normal MH /2011 [facility] HEMATOLOGY MPV 8.7 fL 7.4 - 10.4 09/19 Normal MH /2011 [facility] HEMATOLOGY RBC 3.70 M/CMM 4.20 - 09/19 LOW 5.40 /2011 [facility] HEMATOLOGY WBC 7.5 K/CMM 3.7 - 10.4 09/19 Normal MH /2011 [facility] HEMATOLOGY Hgb 11.0 g/dL 12.0 - 09/19 LOW 16.0 [facility] HEMATOLOGY Hct 33.0 % 36.0 - 09/19 LOW 48.0 [facility] HEMATOLOGY MCV 89.1 fL 81.0 - 09/19 Normal 99.0 /2011 [facility] HEMATOLOGY MCH 29.8 pg 27.0 - 09/19 Normal 31.0 /2011 [facility] HEMATOLOGY Basophils # 0.0 K/CMM 0.0 - 0.2 09/19 Normal /2011 [facility] HEMATOLOGY Eosinophils 0.6 K/CMM 0.0 - 0.5 09/19 [place] # /2011 [facility] HEMATOLOGY Lymphocytes 21.8 % 20.0 - 09/19 Normal 40.0 [facility] HEMATOLOGY Segs 62.1 % 45.0 - 09/19 Normal 75.0 [facility] HEMATOLOGY Monocytes # 0.6 K/CMM 0.0 - 0.8 09/19 Normal /2011 [facility] HEMATOLOGY Lymphocytes 1.6 K/CMM 1.0 - 5.5 09/19 Normal # /2011 [facility] HEMATOLOGY Segs-Bands # 4.7 K/CMM 1.5 - 8.1 09/19 Normal /2011 [facility] HEMATOLOGY Basophils 0.3 % 0.0 - 1.0 09/19 Normal /2011 [facility] HEMATOLOGY Eosinophils 7.7 % 0.0 - 4.0 09/19 HI /2011 [facility] HEMATOLOGY Monocytes 8.1 % 2.0 - 12.0 09/19 Normal [facility] CHEMISTRY Magnesium 1.8 mg/dL 1.8 - 2.4 09/18 Normal Lvl [facility] CHEMISTRY Sodium Lvl 144 meq/L 135 - 145 09/18 Normal [facility] CHEMISTRY Potassium 3.5 meq/L 3.5 - 5.1 09/18 Normal MH Lvl [facility] CHEMISTRY Creatinine 1.3 mg/dL 0.5 - 1.4 09/18 Normal Lvl [facility] CHEMISTRY Chloride Lvl 110 meq/L 95 - 109 09/18 [place] [facility] CHEMISTRY CO2 22 meq/L 24 - 32 09/18 LOW [facility] CHEMISTRY AGAP 15.5 meq/L 10.0 - 09/18 Normal MH 20.0 [facility] CHEMISTRY Calcium Lvl 8.0 mg/dL 8.5 - 10.5 09/18 LOW [facility] CHEMISTRY BUN 31 mg/dL 7 - 22 09/18 [place] [facility] CHEMISTRY Glucose Lvl 90 mg/dL 70 - 99 09/18 Normal 7Interpretive Data: Adult [facility] reference range values reflect the clinical guidelinesof the [place] [employer]. HEMATOLOGY Segs-Bands # 6.0 K/CMM 1.5 - 8.1 09/18 Normal [facility] HEMATOLOGY Monocytes # 0.8 K/CMM 0.0 - 0.8 09/18 Normal [facility] HEMATOLOGY Lymphocytes 1.7 K/CMM 1.0 - 5.5 09/18 Normal MH [facility] HEMATOLOGY Eosinophils 0.6 K/CMM 0.0 - 0.5 09/18 [place] MH [facility] HEMATOLOGY Monocytes 8.5 % 2.0 - 12.0 09/18 Normal [facility] HEMATOLOGY Lymphocytes 18.2 % 20.0 - 09/18 LOW MH 40.0 [facility] HEMATOLOGY Basophils 0.4 % 0.0 - 1.0 09/18 Normal [facility] HEMATOLOGY Eosinophils 6.7 % 0.0 - 4.0 09/18 HI [facility] HEMATOLOGY Basophils # 0.0 K/CMM 0.0 - 0.2 09/18 Normal [facility] HEMATOLOGY Segs 66.2 % 45.0 - 09/18 Normal MH 75.0 /2011 [facility] HEMATOLOGY MCV 89.3 fL 81.0 - 09/18 Normal 99.0 [facility] HEMATOLOGY Hct 31.0 % 36.0 - 09/18 LOW MH 48.0 /2011 [facility] HEMATOLOGY RBC 3.48 M/CMM 4.20 - 09/18 LOW 5.40 /2011 [facility] HEMATOLOGY Hgb 10.5 g/dL 12.0 - 09/18 LOW 16.0 /2011 [facility] HEMATOLOGY MCH 30.1 pg 27.0 - 09/18 Normal 31.0 /2011 [facility] HEMATOLOGY Platelet 189 K/CMM 133 - 450 09/18 Normal [facility] HEMATOLOGY RDW 14.7 % 11.5 - 09/18 [place] 14.5 [facility] HEMATOLOGY MPV 8.3 fL 7.4 - 10.4 09/18 Normal [facility] HEMATOLOGY MCHC 33.7 g/dL 32.0 - 09/18 Normal 36.0 /2011 [facility] HEMATOLOGY WBC 9.1 K/CMM 3.7 - 10.4 09/18 Normal [facility] HEMATOLOGY INR 1.22 0.85 - 09/18 [place] 20Interpretiv 1.17 e Data: [facility] RECOMMENDED RANGES FOR PROTIME INR: 2.0-3.0 for most medical and surgical thromboemboli c states. 2.5-3.5 for artificial heart valves and recurrent embolism.INR SHOULD BE USED ONLY FOR PATIENTS ON STABLE ANTICOAGULANT THERAPY. HEMATOLOGY PT 15.4 s 12.0 - 09/18 [facility] 14.7 [facility] HEMATOLOGY PTT 30.7 s 22.9 - 09/18 Normal 23Interpretiv 35.8 e Data: [facility] Heparin Therapeutic Range: 57 - 92 Seconds CHEMISTRY Vanco Tr TND 1400 09/17 NA [facility] CHEMISTRY Vanco Tr 3.5 ug/ml 09/17 14Interpretiv e Data: [facility] Therapeutic Range: Trough: 10 - 20 ug/mL Peak: 20 - 40 ug/mL Potential Toxicity: >80 ug/mL BEDSIDE Comment2 Assess 09/17 NA GLUCOSE Patient [facility] TESTING HEMATOLOGY Plt Morph Normal 09/17 Normal [facility] (09/18/2011 06:50:00) HEMATOLOGY Polychrom Slight None Seen 09/17 Normal [facility] (09/18/2011 06:50:00) HEMATOLOGY Hypochrom Slight None Seen 09/17 Normal [facility] (09/18/2011 06:50:00) CHEMISTRY Phosphorus 2.9 mg/dL 2.5 - 4.5 04/21 Normal [facility] HEMATOLOGY FSP >=20 ug/ml <5 09/16 ABN /2011 [facility] *ABN* (09/17/2011 05:30:00) CHEMISTRY Mode Art NC 09/15 Normal [facility] (09/16/2011 06:04:00) CHEMISTRY Allens Art Positive 09/15 Normal [facility] (09/16/2011 06:04:00) CHEMISTRY Flow Art 3.5 09/15 NA [facility] CHEMISTRY Site Art Right Ra 09/15 Normal [facility] (09/16/2011 06:04:00) CHEMISTRY O2 Sat Art 96.0 % 95.0 - 09/15 Normal MH 100.0 [facility] CHEMISTRY Temp Art 37.0 Lisa 09/15 NA [facility] CHEMISTRY BE Art -1 mMol/L -2-2 - 2 09/15 Normal [facility] CHEMISTRY pCO2 Art 37 mm[Hg] 35 - 45 09/15 Normal [facility] CHEMISTRY pH Art 7.41 7.35 - 09/15 Normal MH 7.45 [facility] CHEMISTRY pO2 Art 78 mm[Hg] 80 - 100 09/15 LOW [facility] CHEMISTRY HCO3 Art 24 mMol/L 22 - 26 09/15 Normal [facility] CHEMISTRY A/G Ratio 0.9 0.7 - 1.6 09/15 Normal [facility] CHEMISTRY Globulin 3.0 g/dL 2.0 - 4.0 09/15 Normal [facility] CHEMISTRY B/C Ratio 26 6 - 25 09/15 [place] [facility] CHEMISTRY ALT 8 U/L 0 - 65 09/15 Normal [facility] CHEMISTRY Bili Total 0.7 mg/dL 0.2 - 1.3 09/15 Normal [facility] CHEMISTRY Alk Phos 52 U/L 39 - 136 09/15 Normal [facility] CHEMISTRY Albumin Lvl 2.8 g/dL 3.5 - 5.0 09/15 LOW [facility] CHEMISTRY Total 5.8 g/dL 6.4 - 8.4 09/15 LOW [facility] CHEMISTRY AST 12 U/L 0 - 37 09/15 Normal [facility] CHEMISTRY BNP 281 pg/mL <=100 09/15 [place] 8Interpretive Data: [facility] Elevated results are in line with increasing severity of congestive heart failure. Minor elevations between 100 and 300 may be seen with Myocardial Ischemia, Sodium retaining drugs, and compensated/t reated heart failure. CHEMISTRY Phosphorus 2.7 mg/dL 2.5 - 4.5 09/15 Normal [facility] HEMATOLOGY FSP >=5 <20 <5 09/15 ABN MH ug/ml /2011 [facility]
*ABN*
(08/28 03:15:00) <sup> </sup> CHEMISTRY pCO2 Art 36 mm[Hg] 35 - 45 09/14 Normal [facility] CHEMISTRY pH Art 7.39 7.35 - 09/14 Normal MH 7.45 [facility] CHEMISTRY pO2 Art 108 mm[Hg] 80 - 100 09/14 HI [facility] CHEMISTRY Temp Art 37.0 Lisa 09/14 NA [facility] CHEMISTRY Site Art Right Ra 09/14 Normal [facility] (09/15/2011 06:08:00) CHEMISTRY Allens Art Positive 09/14 Normal [facility] (09/15/2011 06:08:00) CHEMISTRY BE Art -3 mMol/L -2-2 - 2 09/14 LOW [facility] CHEMISTRY HCO3 Art 22 mMol/L 22 - 26 09/14 Normal [facility] CHEMISTRY Mode Art A/C 09/14 Normal [facility] (09/15/2011 06:08:00) CHEMISTRY O2 Sat Art 98.0 % 95.0 - 09/14 Normal MH 100.0 [facility] CHEMISTRY FiO2 Art 40.0 09/14 NA [facility] CHEMISTRY CK MB 0.9 ng/mL 0.5 - 3.6 09/14 Normal [facility] CHEMISTRY Total CK 562 U/L 12 - 191 09/14 HI [facility] CHEMISTRY Troponin-I 0.03 ng/mL 0.00 - 09/14 Normal MH 0.40 [facility] CHEMISTRY Phosphorus 2.9 mg/dL 2.5 - 4.5 09/14 Normal [facility] CHEMISTRY Ca Ion mgdL 4.08 mg/dL 4.65 - 09/14 LOW MH 5. [facility] CHEMISTRY Ca Norm mgdL 4.04 mg/dL 4.65 - 09/14 LOW MH 5. [facility] CHEMISTRY Ca Norm 1.01 1.16 - 09/14 LOW MH mMol/L 1. [facility] CHEMISTRY Ca Ion 1.02 1.16 - 09/14 LOW MH mMol/L 1.30 [facility] CHEMISTRY CK MB Index 0.2 0.0 - 2.5 09/14 Normal [facility] CHEMISTRY Vanco Lvl unknown 09/14 NA MH TLD [facility] CHEMISTRY Vanco Lvl 9.2 ug/ml 09/14 NA 12Interpretiv e Data: [facility] Therapeutic Range: Trough: 10 - 20 ug/mL Peak: 20 - 40 ug/mL Potential Toxicity: >80 ug/mL CHEMISTRY BNP 403 pg/mL <=100 09/14 [place] 9Interpretive Data: [facility] Elevated results are in line with increasing severity of congestive heart failure. Minor elevations between 100 and 300 may be seen with Myocardial Ischemia, Sodium retaining drugs, and compensated/t reated heart failure. HEMATOLOGY FSP >=5 <20 <5 09/14 ABN MH ug/ml [facility]
*ABN*
(08/27 03:00:00) <sup> </sup> CHEMISTRY CK MB 1.2 ng/mL 0.5 - 3.6 09/13 Normal [facility] CHEMISTRY Total CK 872 U/L 09/13 HI [facility] CHEMISTRY Troponin-I 0.04 ng/mL 0.00 - 09/13 Normal 0.40 [facility] CHEMISTRY CK MB Index 0.1 0.0 - 2.5 09/13 Normal [facility] BLOOD BANK RBC product Product available 09/13 Normal RESULTS /2011 [facility] (09/14/2011 09:07:00) BLOOD BANK Antibody Negative 09/13 Normal RESULTS Scrn [facility] (09/14/2011 09:05:00) BLOOD BANK ABO/Rh O POS 09/13 Unknown MH RESULTS /2011 [facility] CHEMISTRY CK MB 2.0 ng/mL 0.5 - 3.6 09/13 Normal [facility] CHEMISTRY Total CK 1190 U/L - 09/13 HI [facility] CHEMISTRY Troponin-I 0.05 ng/mL 0.00 - 09/13 Normal MH 0.40 [facility] CHEMISTRY CK MB Index 0.2 0.0 - 2.5 09/13 Normal [facility] CHEMISTRY T4 Free 1.01 ng/dL 0.76 - 09/13 Normal MH 1.46 [facility] CHEMISTRY T3 Free 1.51 pg/mL 2.18 - 09/13 LOW MH 3.98 /2012 [facility] CHEMISTRY TSH 4.590 0.360 - 09/13 HI MH uIU/mL 3.740 /2011 [facility] CHEMISTRY HCO3 Art 22 mMol/L 22 - 26 09/13 Normal [facility] CHEMISTRY Site Art A Line 09/13 Normal MH /2011 [facility] (09/14/2011 04:29:00) CHEMISTRY O2 Sat Art 96.0 % 95.0 - 09/13 Normal MH 100.0 /2011 [facility] CHEMISTRY Mode Art A/C 09/13 Normal /2011 [facility] (09/14/2011 04:29:00) CHEMISTRY Temp Art 37.0 Lisa 09/13 NA [facility] CHEMISTRY Vt Art 500 09/13 NA MH [facility] CHEMISTRY PEEP Art 5.0 09/13 NA [facility] CHEMISTRY FiO2 Art 40.0 09/13 NA [facility] CHEMISTRY pO2 Art 86 mm[Hg] 80 - 100 09/13 Normal [facility] CHEMISTRY BE Art -4 mMol/L -2-2 - 2 09/13 LOW [facility] CHEMISTRY pCO2 Art 38 mm[Hg] 35 - 45 09/13 Normal [facility] CHEMISTRY pH Art 7.36 7.35 - 09/13 Normal MH 7.45 /2011 [facility] CHEMISTRY Vanco Lvl ntn 09/13 NA MH TLD [facility] CHEMISTRY Vanco Lvl 3.3 ug/ml 09/13 NA 13Interpretiv e Data: [facility] Therapeutic Range: Trough: 10 - 20 ug/mL Peak: 20 - 40 ug/mL Potential Toxicity: >80 ug/mL CHEMISTRY Ca Ion 1.00 1.16 - 09/13 LOW MH mMol/L . [facility] CHEMISTRY Ca Norm 0.98 1.16 - 09/13 LOW MH mMol/L . [facility] CHEMISTRY Ca Ion mgdL 4.00 mg/dL 4.65 - 09/13 LOW MH 5. [facility] CHEMISTRY Ca Norm mgdL 3.92 mg/dL 4.65 - 09/13 LOW MH 5. [facility] CHEMISTRY BNP 301 pg/mL <=100 09/13 [place] 10Interpretiv e Data: [facility] Elevated results are in line with increasing severity of congestive heart failure. Minor elevations between 100 and 300 may be seen with Myocardial Ischemia, Sodium retaining drugs, and compensated/t reated heart failure. CHEMISTRY Lactic Acid 0.9 mMol/L 0.5 - 2.2 09/13 Normal MH Lvl [facility] CHEMISTRY Trig 82 mg/dL 0 - 200 09/13 Normal [facility] CHEMISTRY AST 35 U/L 0 - 37 09/13 Normal [facility] CHEMISTRY Bili Total 0.6 mg/dL 0.2 - 1.3 09/13 Normal [facility] CHEMISTRY B/C Ratio 13 6 - 25 09/13 Normal [facility] CHEMISTRY A/G Ratio 1.3 0.7 - 1.6 09/13 Normal [facility] CHEMISTRY Globulin 2.3 g/dL 2.0 - 4.0 09/13 Normal [facility] CHEMISTRY Albumin Lvl 3.0 g/dL 3.5 - 5.0 09/13 LOW [facility] CHEMISTRY Total 5.3 g/dL 6.4 - 8.4 09/13 LOW Protein [facility] CHEMISTRY Alk Phos 54 U/L 39 - 136 09/13 Normal [facility] CHEMISTRY ALT 8 U/L 0 - 65 09/13 Normal [facility] IMMUNOLOGY Prealbumin 8.1 mg/dL 18.0 - 09/13 LOW MH 45.0 [facility] HEMATOLOGY Heprn Negative Negative 09/12 Normal Ab(KAITY) [facility] (09/13/2011 13:00:00) HEMATOLOGY Pos CO Value 0.403 09/12 NA [facility] HEMATOLOGY Pat Od Value 0.058 09/12 NA [facility] CHEMISTRY FiO2 Art 60.0 09/12 [facility] CHEMISTRY Ca Norm mgdL 3.40 mg/dL 4.65 - 09/12 CRIT MH . [facility] CHEMISTRY Ca Ion 0.87 1.16 - 09/12 CRIT 11Result MH mMol/L 06.27 Comment: [facility] Critical Result(s) called to [facility] at 09/12/2011 21:02 by tp. Read back OK. CHEMISTRY Ca Norm 0.85 1.16 - 09/12 CRIT MH mMol/L 06.27 [facility] CHEMISTRY Ca Ion mgdL 3.48 mg/dL 4.65 - 09/12 CRIT MH . [facility] CHEMISTRY Allens Art N/A 09/11 Normal [facility] (09/12/2011 06:03:00) CHEMISTRY Rate Art 12 09/11 NA [facility] CHEMISTRY Vt Art 500 09/11 NA [facility] CHEMISTRY PEEP Art 5.0 09/11 NA [facility] HEMATOLOGY Elliptocyte Slight None Seen 09/11 ABN [facility] *ABN* (09/12/2011 04:00:00) HEMATOLOGY Plt Morph Normal 09/11 Normal [facility] (09/12/2011 04:00:00) CHEMISTRY Rate Art 10 09/10 NA [facility] BLOOD BANK RBC product Product available 09/10 Normal [facility] (09/11/2011 15:35:00) CHEMISTRY U Potassium 50.7 meq/L 09/10 NA 17Interpretiv e Data: No [facility] established reference ranges. CHEMISTRY U Sodium 12 meq/L 09/10Interpretiv e Data: No [facility] established reference ranges. CHEMISTRY U Chloride null 09/10 NA [facility] URINALYSIS UA null 0.1 - 1.0 09/10 [place] [facility] URINALYSIS UA Gran Cast 6 /LPF 09/10 NA [facility] URINALYSIS Micro? Performed 09/10 NA [facility] *NA* (09/11/2011 13:30:00) URINALYSIS UA Bili Negative Negative 09/10 [facility] *NA* (09/11/2011 13:30:00) URINALYSIS UA Ketones 10 mg/dL Negative 09/10 [facility] *ABN* (09/11/2011 13:30:00) URINALYSIS UA Glucose 30 mg/dL Negative 09/10 [facility] *ABN* (09/11/2011 13:30:00) URINALYSIS UA Protein 70 mg/dL Negative 09/10 [facility] *ABN* (09/11/2011 13:30:00) URINALYSIS UA Blood Moderate Negative 09/10 [facility] *ABN* (09/11/2011 13:30:00) URINALYSIS UA [place] Yeast Many /HPF None Seen 09/10 [facility] *ABN* (09/11/2011 13:30:00) URINALYSIS UA Mucus Few /LPF None Seen 09/10 NA [facility] *NA* (09/11/2011 13:30:00) URINALYSIS UA Leuk Est Moderate Negative 09/10 ABN [facility] *ABN* (09/11/2011 13:30:00) URINALYSIS UA Nitrite Negative Negative 09/10 Normal [facility] (09/11/2011 13:30:00) URINALYSIS UA Sq Epi Many /LPF Few 09/10 ABN [facility] *ABN* (09/11/2011 13:30:00) URINALYSIS UA WBC 17 /HPF 0 - 5 09/10 [place] [facility] URINALYSIS UA RBC 142 /HPF 0 - 2 09/10 [place] [facility] URINALYSIS UA Hyal Cast 6 /LPF 0 - 2 09/10 [place] [facility] URINALYSIS UA Bacteria Occasional /HPF None Seen 09/10 NA [facility] *NA* (09/11/2011 13:30:00) URINALYSIS UA Color Yellow Yellow 09/10 NA [facility] *NA* (09/11/2011 13:30:00) URINALYSIS UA Spec Grav 1.038 <=1.030 09/10 [place] [facility] URINALYSIS UA Turbidity Marked Clear 09/10 [facility] *ABN* (09/11/2011 13:30:00) URINALYSIS UA pH 5.0 5.0 - 8.0 09/10 Normal [facility] Microbiolo Culture: 09/10 gy [facility] CHEMISTRY Flow Art 6 09/10 NA [facility] CHEMISTRY TSH 1.450 0.360 - 09/10 Normal uIU/mL 3.740 [facility] CHEMISTRY Cortisol 15.3 ug/dl 3.0 - 23.0 09/10 Normal 15Interpretiv e Data: CORD [facility] BLOOD: 5 - 17 ug/dLPREMATUR E [...] Negative 1 09/10 Normal 1Interpretive - Data: [facility] (09/11/2011 10:05:00) INTERPRETATIO N: Negative..... .No [...] specialist. CHEMISTRY Flow Art 2.0 09/10 NA [facility] BLOOD BANK RBC product Product available 09/10 Normal RESULTS [facility] (09/11/2011 08:26:00) CHEMISTRY AST 46 U/L 0 - 37 09/10 HI MH [facility] CHEMISTRY Bili Total 0.7 mg/dL 0.2 - 1.3 09/10 Normal [facility] CHEMISTRY Globulin 2.0 g/dL 2.0 - 4.0 09/10 Normal [facility] CHEMISTRY A/G Ratio 1.6 0.7 - 1.6 09/10 Normal [facility] CHEMISTRY Alk Phos 40 U/L 39 - 136 09/10 Normal [facility] CHEMISTRY ALT 12 U/L 0 - 65 09/10 Normal [facility] CHEMISTRY Albumin Lvl 3.1 g/dL 3.5 - 5.0 09/10 LOW [facility] CHEMISTRY Total 5.1 g/dL 6.4 - 8.4 09/10 LOW [facility] CHEMISTRY B/C Ratio 7 6 - 25 09/10 Normal [facility] CHEMISTRY Lactic Acid 1.6 mMol/L 0.5 - 2.2 09/10 Normal Lvl [facility] HEMATOLOGY Polychrom Slight None Seen 09/10 Normal [facility] (09/11/2011 06:30:00) HEMATOLOGY Baso Slight None Seen 09/10 ABN [place] [facility] *ABN* (09/11/2011 06:30:00) HEMATOLOGY Hypochrom Slight None Seen 09/10 Normal [facility] (09/11/2011 06:30:00) HEMATOLOGY Plt Morph Normal 09/10 Normal [facility] (09/11/2011 06:30:00) Microbiolo Culture: 09/10 [facility] Blood [facility] Microbiolo Culture: 09/10 gy Blood [facility] BLOOD BANK ABO/Rh O POS 09/10 Unknown RESULTS [facility] BLOOD BANK Antibody Negative 09/10 Normal RESULTS Scr [facility] (09/11/2011 00:10:00) Vital Signs Vital Sign Value Date Comments Source Systolic (mm Hg) 135 01/04/2016 [facility] Diastolic (mm Hg) 84 01/04/2016 [facility] Respitory Rate 18 01/04/2016 [facility] Heart Rate 84 01/04/2016 [facility] Temperature Oral (F) 98.5 F 01/04/2016 [facility] Systolic (mm Hg) 135 01/04/2016 [facility] Diastolic (mm Hg) 74 01/04/2016 [facility] Respitory Rate 16 01/04/2016 [facility] Temperature Oral (F) 98.3 F 01/04/2016 [facility] Heart Rate 78 01/04/2016 [facility] Systolic (mm Hg) 128 01/04/2016 [facility] Diastolic (mm Hg) 71 01/04/2016 [facility] Temperature Oral (F) 98.6 F 01/04/2016 [facility] Respitory Rate 18 01/04/2016 [facility] Heart Rate 77 01/04/2016 [facility] BMI Calculated 45.48 01/03/2016 [facility] Weight 105.625 01/03/2016 [facility] Height 152.4 cm 01/03/2016 [facility] Heart Rate 69 06/20/2013 [facility] Respitory Rate 18 06/20/2013 [facility] Diastolic (mm Hg) 75 06/20/2013 [facility] Systolic (mm Hg) 144 06/20/2013 [facility] Heart Rate 73 06/20/2013 [facility] Temperature Oral (F) 98.1 F 06/20/2013 [facility] Respitory Rate 18 06/20/2013 [facility] Systolic (mm Hg) 124 06/20/2013 [facility] Diastolic (mm Hg) 73 06/20/2013 [facility] Systolic (mm Hg) 144 06/19/2013 [facility] Respitory Rate 18 06/19/2013 [facility] Temperature Oral (F) 98.1 F 06/19/2013 [facility] Diastolic (mm Hg) 66 06/19/2013 [facility] Heart Rate 74 06/19/2013 [facility] Temperature Oral (F) 98.3 F 06/19/2013 [facility] Height 152.4 cm 06/14/2013 [facility] Weight 105.455 06/14/2013 [facility] Weight 105.455 06/14/2013 [facility] Height 152.4 cm 06/14/2013 [facility] Temperature Oral (F) 98.5 F 06/13/2013 [facility] Heart Rate 71 06/13/2013 [facility] Respitory Rate 18 06/13/2013 [facility] Systolic (mm Hg) 126 06/13/2013 [facility] Diastolic (mm Hg) 65 06/13/2013 [facility] Temperature Oral (F) 97.8 F 06/13/2013 [facility] Systolic (mm Hg) 127 06/13/2013 [facility] Diastolic (mm Hg) 61 06/13/2013 [facility] Respitory Rate 20 06/13/2013 [facility] Heart Rate 67 06/13/2013 [facility] Diastolic (mm Hg) 72 06/13/2013 [facility] Systolic (mm Hg) 127 06/13/2013 [facility] Respitory Rate 20 06/13/2013 [facility] Temperature Oral (F) 97.5 F 06/13/2013 [facility] Heart Rate 71 06/13/2013 [facility] Height 152.4 cm 06/06/2013 [facility] Weight 105.455 05/31/2013 [facility] Height 152.4 cm 05/31/2013 [facility] Weight 105.455 05/31/2013 [facility] Diastolic (mm Hg) 83 09/21/2011 [facility] Systolic (mm Hg) 146 09/21/2011 [facility] Respitory Rate 18 09/21/2011 [facility] Heart Rate 70 09/21/2011 [facility] Respitory Rate 18 09/21/2011 [facility] Diastolic (mm Hg) 85 09/21/2011 [facility] Systolic (mm Hg) 143 09/21/2011 [facility] Heart Rate 69 09/21/2011 [facility] Respitory Rate 18 09/21/2011 [facility] Systolic (mm Hg) 140 09/21/2011 [facility] Heart Rate 79 09/21/2011 [facility] Diastolic (mm Hg) 71 09/21/2011 [facility] Temperature Oral (F) 98.0 F 09/21/2011 [facility] Temperature Oral (F) 98.1 F 09/21/2011 [facility] Temperature Oral (F) 98.1 F 09/20/2011 [facility] Weight 117.800 09/06/2011 [facility] Height 152.40 cm 09/06/2011 [facility] Encounters Location Location Encounter Encounter Reason Attending ADM DC Status Source Details Type Number For Provider Date Date Visit Inpatient [id number] INCISION CYNDI 09/08 09/20 Active [facility] [place] [facility] [id number] /[id number] Inpatient [id number] ABDOMINA SURAINDER 05/31 06/13 Active [facility] 2 L PAIN, AJMANI /2013 [facility] [place] [id number] DECONDIT CYNDI 06/13 06/20 Active [facility] 2 IONED ANIGBOGU /2013 [facility] Observation [id number] Valente 01/03 01/03 Javier 0 Daeuri /2015 [facility] Outpatient [id number] 789.06 CYNDI Cancel [facility] 0 87.01 JOSE CRUZ tran Procedures Procedure Code Date Perfomer Comments Source Appendectomy [id number] [facility] Hernia repair [id number] [facility] Appendectomy [id number] [facility] Hernia repair [id number] [facility]
--- OUTSIDE RECORDS SUMMARY | 2018-03-05 09:00 | XMS REPORT | CCD ---
:1950 Author Organization [facility] Care Team Providers Name Role Phone [...] 06/13/2013 06/20/2013 Discontinued SUB-Q, Drug form: INJ, [id number], Start date: 06/13/13 23:00:00, Duration: 30 day, [...] 30 day, Stop date: 07/13/13 21:00:00(Same as: [place] 325/5) Do not exceed 4gm/day of acetaminophen. [...] mg, 1 supp, Route: 06/13/2013 06/20/2013 Discontinued AL, Drug form: SUPP, Bedtime, Dosing Weight 105.455, [...] 06/14/2013 06/19/2013 Discontinued IVPB, Drug form: SOLN, [id number], Start date: 06/14/13 3:00:00, Duration: 30 day, [...] once for up to 12 hours in y38-swkb period (12 hours on and 12 hours [...] values reflect the clinical guidelines of the [place] [employer].4Interpretive Data: Adult reference range values reflect the clinical guidelines of the [place] [employer].5Interpretive Data: Therapeutic Range: Trough: 10 [...]
--- OUTSIDE RECORDS SUMMARY | 2018-03-05 09:00 | XMS REPORT | CCD ---
:1950 Author Organization [facility] Care Team Providers Name Role Phone Giovanny [...] 1 gm, Route: IVPB, 09/16/2011 09/18/2011 Discontinued [id number], Start date: 09/16/11 14:00:00, Duration: 30 day, Stop date: 10/14/11 14:00:00 Lanoxin 0.5 mg, 2 mL, Route: IV, 09/14/2011 09/14/2011 Completed Drug form: INJ, ONCE, Start date: 09/14/11 9:08:00, Stop date: 09/14/11 9:08:00 vancomycin 1 gm, Route: IVPB, 09/19/2011 09/21/2011 Discontinued [id number], Start date: 09/19/11 14:00:00, Duration: 30 day, [...] mg, 2 supp, Route: 09/14/2011 09/21/2011 Discontinued MI, Drug form: SUPP, Q48H, PRN Constipation, Start date: 09/14/11 16:56:00, Duration: 30 day, Stop date: 10/14/11 16:55:00 Dulcolax Laxative 20 mg, 2 supp, Route: 09/14/2011 09/14/2011 Completed MI, Drug form: SUPP, ONCE, Start date: 09/14/11 [...] 09/20/2011 09/19/2011 Discontinued SUB-Q, Drug form: INJ, [id number], Start date: 09/20/11 4:00:00, Duration: 30 day, [...] 09/17/2011 09/18/2011 Discontinued PO, Drug form: TAB, WAKS16K, Start date: 09/17/11 15:00:00, Duration: 30 day, [...] 09/12/2011 09/14/2011 Completed IVPB, Drug form: INJ, [id number], Start date: 09/12/11 11:00:00, Duration: 3 day, Stop date: 09/14/11 11:00:00 Lovenox 40 mg, 0.4 mL, Route: 09/17/2011 09/19/2011 Discontinued SUB-Q, Drug form: INJ, [id number], Start date: 09/17/11 16:00:00, Duration: 30 day, [...] 09/16/2011 09/21/2011 Discontinued PO, Drug form: TAB, [id number], Start date: 09/16/11 14:00:00, Duration: 30 day, [...] Cast 6 /LPF *NA* (09/11/2011 13:30:00) [facility] [place] Yeast [None Seen /HPF] Many /HPF *ABN* [...] range values reflect the clinical guidelinesof the [place] [employer].6Interpretive Data: Adult reference range values reflect the clinical guidelinesof the [place] [employer].7Interpretive Data: Adult reference range values reflect the clinical guidelinesof the [place] [employer].8Interpretive Data: Elevated results are in [...] heart failure.11Result Comment: Critical Result(s) called to [facility] at 09/12/2011 21:02 by tp. Read back OK.12Interpretive Data: Therapeutic Range: Trough: 10 - 20 ug/mL Peak : 20 - 40 ug/mL Potential Toxicity: >80 ug/wP23Uaixvbsebwtr Data: Therapeutic Range: Trough: 10 - 20 ug/mL Peak : 20 - 40 ug/mL Potential Toxicity: >80 ug/lP73Enttqunqdsii Data: Therapeutic Range: Trough: 10 - 20 ug/mL Peak : 20 - 40 ug/mL Potential Toxicity: >80 ug/wB37Xnekahbxdznb Data: CORD BLOOD: 5 - 17 ug/dLPREMATURE INFANTS:26-28 weeks, day 4 1 - 11 ug/dL31- 35 weeks, day 4 2.5 - 9.1 ug/dLFULL TERM INFANTS:3 days 1.7 - 14 ug/dL1-7 days 2 - 11 ug/dL1-12 months 2.8 - 23 ug/ dLCHILDREN (1 - 16 years) 3 - 21 ug/dLADULT RANGE:8AM 6.0 - 23.0 ug/dL4PM 3.0 - 16.0 ug/nO64Ecxhfjorfkvz Data: No established reference ranges.17Interpretive Data: No [...] Data: Heparin Therapeutic Range: 57 - 92 Ouzslus03Zeaoktrrhqmk Data: Heparin Therapeutic Range: 57 - 92 Qkrbouj51Wxmdixnjacjv Data: Heparin Therapeutic Range: 57 - 92 [...] Zamarripa FREE TEXT SOURCE: FINAL REPORTS Final Vacfdv47,000 - 100,000 CFU/mL Yeast PRELIMINARY REPORTS Preliminary [...]
--- OUTSIDE RECORDS SUMMARY | 2018-03-05 09:01 | XMS REPORT | CCD ---
:1950 Author Organization [facility] Care Team Providers Name Role Phone Brenda [...] 30 day, Stop date: 07/11/13 18:44:00(Same as: [place] 325/5) Do not exceed 4gm/day of acetaminophen. [...] 06/07/2013 06/10/2013 Discontinued SUB-Q, Drug form: INJ, [id number], Start date: 06/07/13 20:00:00, Duration: 30 day, [...] Maxipime) Tylenol 650 mg, 1 supp, Route: UT, 06/06/2013 06/13/2013 Discontinued Drug form: SUPP, Q4H, PRN Pain/Fever, Start date: 06/06/13 13:03:00, Stop date: 07/06/13 13:02:00Max eufhandvuytoc=2771 mg/day (4 gm/day). (Same as: Tylenol) promethazine [...] not exceed 4gm/day of acetaminophen. (Same as: [place] 325/10) fluticasone nasal 0.05 2 inhalation, Route: [...] 06/07/2013 06/10/2013 Discontinued IVPB, Drug form: INJ, [id number], Start date: 06/07/13 20:00:00, Duration: 30 day, [...] 06/05/2013 06/06/2013 Discontinued SUB-Q, Drug form: INJ, [id number], Dosing Weight 105.455, kg, Start date: 06/05/13 [...] Dulcolax Laxative 40 mg, 4 supp, Route: UT, 06/05/2013 06/05/2013 Completed Drug form: SUPP, ONCE, [...] 06/06/2013 06/13/2013 Discontinued IVPB, Drug form: SOLN, [id number], Start date: 06/06/13 15:00:00, Duration: 30 day, [...] Dulcolax Laxative 10 mg, 1 supp, Route: UT, 06/05/2013 06/05/2013 Deleted Drug form: SUPP, ONCE, [...] Dulcolax Laxative 40 mg, 4 supp, Route: UT, 06/05/2013 06/05/2013 Deleted Drug form: SUPP, ONCE, [...] values reflect the clinical guidelines of the [place] [employer].8Interpretive Data: Adult reference range values reflect the clinical guidelines of the [place] [employer].9Interpretive Data: Adult reference range values reflect the clinical guidelines of the [place] [employer].10Interpretive Data: Therapeutic Range: Trough: 10 [...] Cell [None Seen] Slight *ABN* (06/12/2013 05:00:00) [place] Cell [None Seen] Slight *ABN* (06/12/2013 05:00:00) [...] Data: Heparin Therapeutic Range: 57 - 92 [id number] Data: Heparin Therapeutic Range: 57 - 92 [...]
--- OUTSIDE RECORDS SUMMARY | 2018-03-05 09:01 | XMS REPORT ---
:1950 [facility] [address] [address] [place] [address] Care Team Providers Name Role Phone CATRACHITO [...] Value Reference Range Comments COLOR (BEAKER) (test gpii=365) Light Yellow CLARITY (BEAKER) (test qweo=008) Clear SPECIFIC GRAVITY UA (BEAKER) (test amhf=509) 1.006 1.001-1.035 PH UA (BEAKER) (test lpgt=024) 6.5 5.0-8.0 PROTEIN UA (BEAKER) (test vzse=419) Negative Negative GLUCOSE UA (BEAKER) (test vtik=894) Negative Negative KETONES UA (BEAKER) (test ipup=276) Negative Negative BILIRUBIN UA (BEAKER) (test opwb=974) Negative Negative BLOOD UA (BEAKER) (test dgzv=413) Negative Negative NITRITE UA (BEAKER) (test xwne=722) Negative Negative LEUKOCYTE ESTERASE UA (BEAKER) (test ghqf=710) Trace Negative UROBILINOGEN UA (BEAKER) (test ycvu=224) 0.2 mg/dL 0.2-1.0 RBC UA (BEAKER) (test tjbl=275) < /HPF WBC UA (BEAKER) (test kvvx=189) 2 /HPF SQUAMOUS EPITHELIAL (BEAKER) (test skvn=392) 1 /HPF SOURCE(BEAKER) (test yeeh=8046) Urine, Voided CT, BRAIN, WITHOUT [id number] 18:57:00Reason for exam:->headacheWhat is the patient's sedation [...] Verified Date/Time: 02/09/2017 18 :57:54 Reading Location: [facility] Radiology Reading Room CREATINE KINASE (CK), TOTAL AND [id number] 17:04:00 Test Item Value Reference Range Comments CREATINE KINASE TOTAL (BEAKER) (test dqkg=349) 108 U/L 29-200 CREATINE KINASE-MB (BEAKER) (test pony=325) 0.8 ng/mL 0.0-6.6 CREATINE KINASE-MB INDEX (BEAKER) (test wnqu=707) 0.7 % CK-MB Reference Range:<6.7 Normal6.7-10.0 Borderline>10.0 AbnormalTROPONIN [id number] 17:04:00 Test Item Value Reference Range Comments TROPONIN I (BEAKER) (test gddb=444) < ng/mL 0.00-0.03 Troponin I (TnI) levels [...] failure, acidosis, acute neurological disease, and persistent tachyarrhythmia.PT/[id number] 17:02:00 Test Item Value Reference Range Comments PROTIME (BEAKER) (test xsjz=542) 14.1 seconds 11.7-14.7 INR (BEAKER) (test jmzt=860) 1.1 <=5.9 PARTIAL THROMBOPLASTIN TIME (BEAKER) (test 29.8 seconds 22.5-36.0 nktx=945) RECOMMENDED COUMADIN/WARFARIN INR THERAPY RANGESSTANDARD DOSE: 2.0 - 3.0 Includes: PROPHYLAXIS forvenous thrombosis, systemic embolization; TREATMENT for venous thrombosis and/or pulmonary embolus.HIGH RISK: Target INR is 2.5-3.5 for patients with mechanical heart valves.BASIC METABOLIC [id number] 16:58: 00 Test Item Value Reference Range Comments SODIUM (BEAKER) (test 142 meq/L 136-145 rkwk=171) POTASSIUM (BEAKER) (test 4.4 meq/L 3.5-5.1 kumv=421) CHLORIDE (BEAKER) (test 107 meq/L 98-107 axir=971) CO2 (BEAKER) (test 29 meq/L 22-29 xbcv=091) BLOOD UREA NITROGEN 12 mg/dL 7-21 (BEAKER) (test lmwo=730) CREATININE (BEAKER) (test 1.17 mg/dL 0.57-1.25 dzdb=001) GLUCOSE RANDOM (BEAKER) 96 mg/dL 70-105 (test kxnt=860) CALCIUM (BEAKER) (test 9.1 mg/dL 8.4-10.2 lbqn=378) EGFR (BEAKER) (test mL/min/1.73 sq m INSUFFICIENT CLINICAL DATA renl=5037) TO CALCULATE ESTIMATED GFR. RAD, CHEST, PA OR AP, 1 [id number] 16:55:00Reason for exam:->chest painShould this be performed [...] Benjaminort Verified Date/Time: 02/09/2017 16:55:35 Reading Location: [facility] Radiology Reading Room CBC W/PLT COUNT & AUTO [id number] 16:34:00 Test Item Value Reference Range Comments WHITE BLOOD CELL COUNT (BEAKER) (test wnft=574) 6.3 K/ L 3.5-10.5 RED BLOOD CELL COUNT (BEAKER) (test wwnr=930) 3.63 M/ L 3.93-5.22 HEMOGLOBIN (BEAKER) (test yout=145) 11.4 GM/DL 11.2-15.7 HEMATOCRIT (BEAKER) (test ccvh=392) 35.5 % 34.1-44.9 MEAN CORPUSCULAR VOLUME (BEAKER) (test qkqq=954) 97.8 fL 79.4-94.8 MEAN CORPUSCULAR HEMOGLOBIN (BEAKER) (test 31.4 pg 25.6-32.2 qtzn=930) MEAN CORPUSCULAR HEMOGLOBIN CONC (BEAKER) (test 32.1 GM/DL 32.2-35.5 mssj=163) RED CELL DISTRIBUTION WIDTH (BEAKER) (test 13.4 % 11.7-14.4 kiod=996) PLATELET COUNT (BEAKER) (test qeqp=293) 149 K/CU MM 150-450 MEAN PLATELET VOLUME (BEAKER) (test ehtq=416) 11.5 fL 9.4-12.3 NUCLEATED RED BLOOD CELLS (BEAKER) (test 0 /100 WBC 0-0 pegp=937) NEUTROPHILS RELATIVE PERCENT (BEAKER) (test 47 % bomj=942) LYMPHOCYTES RELATIVE PERCENT (BEAKER) (test 39 % lcaq=006) MONOCYTES RELATIVE PERCENT (BEAKER) (test 9 % owzv=677) EOSINOPHILS RELATIVE PERCENT (BEAKER) (test 4 % usmf=015) BASOPHILS RELATIVE PERCENT (BEAKER) (test 1 % vyxk=911) NEUTROPHILS ABSOLUTE COUNT (BEAKER) (test 2.95 K/ L 1.56-6.13 wwwr=160) LYMPHOCYTES ABSOLUTE COUNT (BEAKER) (test 2.43 K/ L 1.18-3.74 tzoq=555) MONOCYTES ABSOLUTE COUNT (BEAKER) (test 0.55 K/ L 0.24-0.36 mdrm=139) EOSINOPHILS ABSOLUTE COUNT (BEAKER) (test 0.26 K/ L 0.04-0.36 hfqt=367) BASOPHILS ABSOLUTE COUNT (BEAKER) (test 0.06 K/ L 0.01-0.08 aphi=330) IMMATURE GRANULOCYTES-RELATIVE PERCENT (BEAKER) 0 % 0-1 (test nkrs=7681) POCT-GLUCOSE [id number] 16:22:00 Test Item Value Reference Range Comments POC-GLUCOSE METER (BEAKER) 105 mg/dL 70-110 TESTED AT [facility] [address] [facility] (test ddki=6162) [facility] [address]
[2018-03-05] MEDS ORDERED: BALANCED SALT IRRIG PLAIN 500 ML BTL IRR ONE (09:06)
[2018-03-05] MEDS ORDERED: EPINEPHRINE/PF 1 MG/ML AMP ONE (09:06)
[2018-03-05] MEDS ORDERED: NS 0.9% VIAL 10 ML ONE (09:06)
[2018-03-05] MEDS ORDERED: DUOVISC 1 KIT OPTH ONE (09:07)
[2018-03-05] MEDS ORDERED: MOXIFLOXACIN HCL 10 DROPS/ML **OR USE OPTH ONE (09:07)
[2018-03-05] MEDS ORDERED: NA CHLORIDE 0.9% 500 ML ONE (09:33)
[2018-03-05] MEDS ORDERED: PHENYLEPHRINE 10% OPTH 5ML ONE (09:33)
[2018-03-05] MEDS ORDERED: CYCLOPENTOLATE 1% OPTH 2 ML ONE (09:33)
[2018-03-05] MEDS ORDERED: LIDOCAINE 2% MPF 5 ML VIAL ONE ×2 (09:33→11:36)
[2018-03-05] MEDS ORDERED: BUPIVACAINE 0.25% PF 10 ML VIAL ONE (09:34)
[2018-03-05] MEDS ORDERED: TETRACAINE HCL 0.5% 2ML OPTH ONE (09:34)
[2018-03-05] MEDS ORDERED: CYCLOPENTOLATE 1% OPTH 2 ML OPTH ONE ×2 (09:46→10:30)
[2018-03-05] MEDS ORDERED: PHENYLEPHRINE 10% OPTH 5ML OPTH ONE ×2 (09:46→10:30)
[2018-03-05] MEDS ORDERED: FENTANYL CITR 100 MCG/2 ML ONE (11:36)
[2018-03-05] MEDS ORDERED: PROPOFOL 200 MG/20 ML VIAL IV ONE (11:36)
[2018-03-05] MEDS ORDERED: ONDANSETRON HCL 40 MG/20 ML VIAL ONE (12:05)
--- NOTE | 2018-03-05 12:17 | P.BOP ---
Preoperative diagnosis: Nuclear sclerotic and cortical cataract OD Postoperative diagnosis: Same Primary procedure: Phacoemulsification with IOL OD Estimated blood loss: None Anesthesia: General Complications: None Implants: ZCB00 +22.5 Transferred to: Recovery Room Condition: Good
[2018-03-05] MEDS: MORPHINE 4 MG/ML SYR ONE ×3 (12:59→13:11)
[2018-03-05] MEDS ORDERED: MORPHINE 4 MG/ML SYR ONE (13:26)
--- NOTE | 2018-03-06 00:02 | OP ---
Date of Procedure: 03/05/2018 Surgeon: Annel Orr MD Anesthesiologist: 1. Sofia Clark CRNA. 2. Robert Olivares CRNA. 3. Julio Cesar Jones M.D. Preoperative Diagnosis: Nuclear sclerotic and cortical cataract, right eye. Operation Performed: Phacoemulsification with intraocular lens implant, right eye. Anesthesia: General. Complications: None. Description Of Procedure: In the operating room the patient was prepped and draped in the usual ster ile fashion for ophthalmic surgery. A lid speculum was placed in the right eye. Two paracentesis si ana were made superiorly and inferiorly in the limbal cornea. Viscoat was placed in the anterior wil mber and a crescent blade was used to make a corneal groove and tunnel, and a keratome was used to en ter the anterior chamber. Provisc was placed in the anterior chamber and a 360 degree capsulotomy wa s performed with a cystitome. The lens was hydrodissected with BSS and rotated freely. The lens was removed with a stop and chop technique. 3.81 phaco CDE was used to remove the lens. Residual pam x was removed with the irrigation and aspiration. Provisc was placed in the capsular bag. A ZCB00 + 22.5 lens was placed in the capsular bag without complications. Irrigation and aspiration were used to remove residual viscoelastic. The paracentesis sites were hydrated with BSS. The wound and parac entesis sites were inspected and found to be watertight. Vigamox 0.07 cc was placed intracamerally a t the end of the procedure. The eye was irrigated with balanced salt solution. The eye was patched with a soft cotton patch and Kerns metal shield. The patient was returned to day surgery in good condition. Comments: Discharge Instructions: Ms. Carl is discharged to home in good condition and is to follow up sada Orr in the morning. LAI/JORDON Voice ID: [id number] Report ID: [id number]
== END 2018-03-05 14:35 | disposition home or self-care (01) ==
LOC: OR 08:38
PROVIDERS: ATTEND Ophthalmology Retina Specialist
PROC: 08RJ3JZ Replacement of Right Lens with Synthetic Substitute, Percutaneous Approach (ICD-10-PCS; principal; 2018-03-05 10:30)
DX: H25.11 Age-related nuclear cataract, right eye (principal); H25.011 Cortical age-related cataract, right eye; K21.9 Gastro-esophageal reflux disease without esophagitis; E07.9 Disorder of thyroid, unspecified; Z88.6 Allergy status to analgesic agent; Z91.048 Other nonmedicinal substance allergy status; Z83.511 Family history of glaucoma; Z83.3 Family history of diabetes mellitus; Z82.49 Family history of ischemic heart disease and other diseases of the circulatory system; Z80.9 Family history of malignant neoplasm, unspecified
CPT/HCPCS: 66984; 82962; J0171; J2405; J3010

== ENCOUNTER 2018-10-17 13:19 | Emergency (ER) | payer OTHER ==
[2018-10-17] MEDS ORDERED: NA CHLORIDE 0.9% 500 ML ONE (13:48)
--- OUTSIDE RECORDS SUMMARY | 2018-10-17 14:03 | XMS REPORT | Clinical Summary ---
:1950 Author Organization [facility] Address [address] [place] [address] Care Team Providers Name Role Phone Segundo Guerrero MD Primary Care Provider Allergies Active Allergy Reactions Severity Noted Date Comments Meperidine 02/09/2017 Adhesive Tape 02/09/2017 Not allergic to paper tape. Medications Medication Sig Dispensed Refills Start Date End Date Status tolterodine (DETROL LA) Take 4 mg by 0 Active 4 MG 24 hr capsule mouth daily. levothyroxine Take 75 mcg by 0 Active (SYNTHROID, LEVOTHROID) mouth Every 75 MCG tablet morning on an empty stomach. lansoprazole (PREVACID) Take 30 mg by 0 Active 30 MG capsule mouth daily. aspirin 81 MG EC tablet Take 81 mg by 0 Active mouth daily. clonazePAM (KLONOPIN) Take 0.5 mg by 0 Active 0.5 MG tablet mouth 2 (two) times daily as needed for Anxiety. buPROPion (WELLBUTRIN Take 300 mg by 0 Active XL) 300 MG 24 hr tablet mouth daily. citalopram (CELEXA) 40 Take 40 mg by 0 Active MG tablet mouth daily. traMADol (ULTRAM-ER) Take 100 mg by 0 Active 100 MG 24 hr tablet mouth daily. gabapentin (NEURONTIN) Take 300 mg by 0 Active 300 MG capsule mouth 3 (three) times daily. meloxicam (MOBIC) 7.5 Take 7.5 mg by 0 Active MG tablet mouth daily. HYDROcodone-acetaminoph Take 1 tablet by 0 Active en (NORCO 7.5-325) mouth every 6 7.5-325 mg per tablet (six) hours as needed for Pain. TiZANidine (ZANAFLEX) 4 Take 4 mg by 0 Active MG capsule mouth 3 (three) times daily. memantine (NAMENDA) 10 Take 10 mg by 0 Active MG tablet mouth 2 (two) times daily. Missing or laxative . 0 Active Non-Formulary Medication Active Problems Not on file Social History Tobacco Use Types Packs/Day Years Used Date Never Smoker Smokeless Tobacco: Never Used Alcohol Use Drinks/Week oz/Week Comments No Sex Assigned at Date Recorded Not on file Job Start Date Occupation Industry Not on file Not on file Not on file Travel History Travel Start Travel End No recent travel history available. Last Filed Vital Signs Not on file Plan of Treatment Not on file Results Not on fileafter 10/16/2017 Insurance Payer Benefit Plan / Group Subscriber ID Type Phone Address MEDICARE MEDICARE A B xxxxxxxxxx Medicare
[2018-10-17 14:05] LABS: Absolute Lymphocytes (CBC) 1.8 K/uL (0.7-4.9); Absolute Monocytes 0.5 K/uL (0.1-1.3); Absolute Neutrophil 4.4 K/uL (1.8-8.0); Basophils % 0.6 % (0-1.3); Hematocrit 39.8 % (36.0-45.0); Lymphocytes % 24.8 % (15.3-44.8); MPV 9.4 fL (7.6-11.3); Monocytes % 7.4 % (3.3-12.3); RBC Red Blood Cell Count 4.46 M/uL (3.86-4.86)
[2018-10-17] MEDS ORDERED: ONDANSETRON 4 MG/2 ML VIAL ONE (14:06)
[2018-10-17] MEDS ORDERED: MORPHINE 4 MG/ML SYR ONE ×2 (14:06→15:46)
[2018-10-17 14:14] LABS: Potassium 3.1 mmol/L (3.5-5.1)
--- OUTSIDE RECORDS SUMMARY | 2018-10-17 14:17 | XMS REPORT | Continuity of Care Document ---
:1950 Author Organization Interface Problems Problem Status Onset Classification Date Comments Source Date Reported SBO Active 01/03/[address] DECONDITIONED Active 05/31/19 MH 14 [facility] ABDOMINAL PAIN, Active 05/30/19 HERNIA 14 [facility] AF - Atrial Active 09/14/19 Problem 01/07/2016 fibrillation 12 [facility] AF - Atrial Active 09/14/19 Problem 09/23/2011 fibrillation 12 [facility] Central line Active 09/11/19 Problem 01/07/2016 insertion 12 [facility] Endotracheal Active 09/11/19 Problem 01/07/2016 intubation 12 [facility] Central line Active 09/11/19 Problem 09/23/2011 insertion 12 [facility] Endotracheal Active 09/11/19 Problem 09/23/2011 intubation 12 [facility] [D]Abdominal pain Active 09/10/19 Problem 01/07/2016 12 [facility] Low blood pressure Active 09/10/19 Problem 01/07/2016 12 [facility] [D]Abdominal pain Active 09/10/19 Problem 09/23/2011 12 [facility] Low blood pressure Active 09/10/19 Problem 09/23/2011 12 [facility] Hernia repair Active 09/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/07/2016 12 [facility] Lysis of adhesions Active 09/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/07/2016 12 [facility] Panniculectomy Active 09/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/07/2016 12 [facility] Recurrent ventral Active 09/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/07/2016 hernia 12 [facility] Hernia repair Active 09/09/19 Problem 09/23/2011 12 [facility] Lysis of adhesions Active 09/09/19 Problem 09/23/2011 12 [facility] Panniculectomy Active 09/09/19 Problem 09/23/2011 12 [facility] Recurrent ventral Active 09/09/19 Problem 09/23/2011 hernia 12 [facility] INCISIONAL HERNIA Active 08/26/19 553.21 /[id number] [place] [address] 789.06/787.01 Active 06/24/[address] Cholecystectomy Active Problem 01/07/2016 [facility] Depression Resolved Problem 01/07/2016 [facility] Gastric stapling Active Problem 01/07/2016 [facility] HTN - Hypertension Active Problem 01/07/2016 [facility] Hypothyroidism Resolved Problem 01/07/2016 [facility] 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 [facility] PUD - Peptic ulcer Active Problem 01/07/2016 disease [facility] Small bowel Resolved Problem 01/07/2016 [facility] Cholecystectomy Active Problem 09/23/2011 [facility] Gastric stapling Active Problem 09/23/2011 [facility] HTN - Hypertension Active Problem 09/23/2011 [facility] Idiopathic Active Problem 09/23/2011 hypotension [facility] PUD - Peptic ulcer Active Problem 09/23/2011 disease [facility] INCISIONAL HERNIA Active [facility] VENTRAL HERNIA NOS Active [facility] ILLNESS, Active [facility] UNSPECIFIED [facility] PAIN IN LIMB Active [facility] Medications Medication Details Route Status Patient Ordering Order Source Instructions Provider Date tolterodine 4 mg, 1 cap, No Longer Route: PO, Drug Active 2015 [facility] form: CAP, [facility] Daily, Dosing Weight 105.625, kg, Start date: 01/05/16 9:00:00 CDT, Duration: 30 day, Stop date: 02/03/16 9:00:00 CDT Synthroid 50 microgram, 1 No Longer tab, Route: PO, Active 2015 [facility] Drug form: TAB, [facility] Daily, Dosing Weight 105.625, kg, Start date: 01/05/16 9:00:00 CDT, Duration: 30 day, Stop date: 02/03/16 9:00:00 CDTNotes: Take 1 hour before or 2 hours after meal; Enteral feeds may interefere with the absorption of this medication.(Jhonatan e as:Levothroid, Synthroid) Bupropion 150 mg, 1 tab, No Longer Route: PO, Drug Active 2015 [facility] form: ERTAB, [facility] Daily, Dosing Weight 105.625, kg, Start date: 01/05/16 9:00:00 CDT, Duration: 30 day, Stop date: 02/03/16 9:00:00 CDT Citalopram 60 mg, 3 tab, No Longer Route: PO, Drug Active 2015 [facility] form: TAB, [facility] Daily, Dosing Weight 105.625, kg, Start date: 01/05/16 9:00:00 CDT, Duration: 30 day, Stop date: 02/03/16 9:00:00 CDTNotes: (Same As: CeleXA) Trazodone 100 mg, 2 tab, Inactive Hydrochloride Route: PO, Drug 2015 [facility] 100 MG Oral form: TAB, [facility] Tablet Bedtime, Dosing Weight 105.625, kg, Start date: 01/04/16 21:00:00 CDT, Duration: 30 day, Stop date: 02/02/16 21:00:00 CDTNotes: (Same As: Desyrel) tizanidine 4 mg, 1 tab, Inactive Route: PO, Drug 2015 [facility] form: TAB, [facility] Q12H, Dosing Weight 105.625, kg, Start date: 01/04/16 21:00:00 CDT, Duration: 30 day, Stop date: 02/03/16 9:00:00 CDTNotes: (Same As: Zanaflex) tizanidine 4 mg 4 mg=1 tab, PO, Active oral tablet Q12H, 0 2015 [facility] Refill(s) [facility] gabapentin 300 300 mg, 1 cap, Inactive MG Oral Capsule Route: PO, Drug 2015 [facility] form: CAP, QID, [facility] Dosing Weight 105.625, kg, Start date: 01/04/16 17:00:00 CDT, Duration: 30 day, Stop date: 02/03/16 13:00:00 CDTNotes: (Same as: Neurontin) Bisacodyl 10 mg, 2 tab, Inactive Route: PO, Drug 2015 [facility] form: ECTAB, [place] Daily, Dosing Weight 105.625, kg, PRN Constipation, Start date: 01/04/16 15:49:00 CDT, Duration: 30 day, Stop date: 02/03/16 15:48:00 CDT Clonazepam 0.5 mg, 1 tab, Inactive Route: PO, Drug 2015 [facility] form: TAB, TID, [facility] Dosing Weight 105.625, kg, Start date: 01/04/16 9:00:00 CDT, Duration: 30 day, Stop date: 02/02/16 17:00:00 CDTNotes: (Same As: KlonoPIN) Tylenol 650 mg, 20.3 Inactive mL, Route: PO, 2015 [facility] Drug form: LIQ, [facility] Q4H, Dosing Weight 105.625, kg, PRN Headache 1-5, Start date: 01/04/16 2:51:00 CDT, Duration: 30 day, Stop date: 02/03/16 2:50:00 CDTNotes: Max acetaminophen=4 000mg/day (4 gm/day). (Same as: Tylenol) Tylenol 650 mg, 2 tab, Inactive Route: PO, Drug 2015 [facility] form: TAB, [facility] ONCE, Dosing Weight 105.625, kg, PRN Headache 1-5, Start date: 01/03/16 22:02:00 CDT, Stop date: 02/02/16 22:01:00 CDTNotes: Do not exceed 4 gm/day. (Same as: Tylenol) Benadryl 25 mg, 0.5 mL, Inactive Route: IVP, 2015 [facility] Drug form: INJ, [facility] ONCE, Dosing Weight 105.625, kg, PRN Insomnia, Start date: 01/03/16 21:02:00 CDTNotes: (Same as: Benadryl) phenol 1 spray, Route: No Longer TOP, Daily, Active 2015 [facility] Drug form: City SPRY, PRN Sore Throat, Start date: 01/03/16 20:57:00 CDT, Duration: 30 day, Stop date: 02/02/16 20:56:00 CDTNotes: Chloraseptic [place] (Same as: Chloraseptic, Sore Throat [place]) WASTE: F/P - Black; E - Municipal Trash Bin Saline Flush 10 mL, Route: No Longer 0.9% IVP, Drug Form: Active 2015 [facility] INJ, Dosing [place] Weight 105.625, kg, Q8H, Start date: 01/03/16 16:00:00 CDT, Duration: 30 day, Stop date: 02/02/16 8:00:00 CDTNotes: (Same as: BD Posiflush) Lidocaine 5 mL, Route: No Longer 01/02/ Hydrochloride INTRADERM, Drug Active 2015 [facility] 10 MG/ML Form: INJ, [place] Injectable Dosing Weight Solution 105.625, kg, ONCALL, Start date: 01/03/16 14:00:00 CDT, Duration: 30 day, Stop date: 02/02/16 13:59:00 CDTNotes: Preservative free. (Same as: Xylocaine MPF) Sodium Chloride 25 mL, Route: No Longer 01/02/ 0.9% IV IVP, Start Active 2015 [facility] date: 01/03/16 [facility] 13:57:00 CDT, Duration: 30 day, Stop date: 02/02/16 13:56:00 CDT, PRN Line Flush BD Normal 10 mL, Route: No Longer MH Saline Flush IVP, Drug Form: Active 2015 [facility] INJ, PRN, PRN [place] Line Flush, Start date: 01/03/16 13:57:00 CDT, Duration: 30 day, Stop date: 02/02/16 13:56:00 CDTNotes: (Same as: BD Posiflush) BD Normal 5 mL, Route: No Longer MH Saline Flush IVP, Drug Form: Active 2015 [facility] INJ, PRN, PRN [place] Line Flush, Start date: 01/03/16 13:56:00 CDT, Duration: 30 day, Stop date: 02/02/16 13:55:00 CDTNotes: (Same as: BD Posiflush) Saline Flush 10 mL, Route: Inactive 0.9% IVP, Drug Form: 2015 [facility] INJ, Dosing [place] Weight 105.625, kg, PRN, PRN Line Flush, Start date: 01/03/16 13:52:00 CDT, Duration: 30 day, Stop date: 02/02/16 13:51:00 CDT BD Normal 5 mL, Route: No Longer MH Saline Flush IVP, Drug Form: Active 2015 [facility] INJ, PRN, PRN [place] Line Flush, Start date: 01/03/16 13:35:00 CDT, Duration: 30 day, Stop date: 02/02/16 13:34:00 CDTNotes: (Same as: BD Posiflush) Sodium Chloride 25 mL, Route: No Longer 0.9% IV IVP, Start Active 2015 [facility] date: 01/03/16 [facility] 13:35:00 CDT, Duration: 30 day, Stop date: 02/02/16 13:34:00 CDT, PRN Line Flush D5W 1/2NS + KCL 1,000 mL, Rate: No Longer 20mEq/L 1000ml 75 ml/hr, Active 2015 [facility] (Premix) 1,000 Infuse over: City mL 13.3 hr, Route: IV, Dosing Weight 105.625 kg, Total Volume: 1,000, Start date: 01/03/16 13:31:00 CDT, Stop date: 02/02/16 13:30:00 CDTNotes: PREMIX IV - Do Not Alter WASTE: F/P - Sink; E - Municipal Trash Bin Saline Flush 10 mL, Route: Inactive 0.9% IVP, Drug Form: 2015 [facility] INJ, Dosing [facility] Weight 105.625, kg, PRN, PRN Line Flush, Start date: 01/03/16 13:30:00 CDT, Duration: 30 day, Stop date: 02/02/16 13:29:00 CDT Morphine 10 mg, 1 mL, Inactive Route: IM, Drug 2015 [facility] form: INJ, [facility] ONCE, Dosing Weight 105.625, kg, Priority: STAT, Start date: 01/03/16 13:26:00 CDT, Stop date: 01/03/16 13:26:00 CDTNotes: (Same as:MORPhine Sulfate) Pepcid 20 mg, 2 mL, No Longer Route: IVP, Active 2015 [facility] Drug form: INJ, [facility] Q12H, Start date: 01/03/16 9:00:00 CDT, Duration: 30 day, Stop date: 02/01/16 21:00:00 CDTNotes: (Same as: Pepcid) Can be dilute in 5-10cc NS IVP: Slow IV push over at least 2 minutes. Protonix 40 mg, Route: Inactive IVP, Daily, 2015 [facility] Dosing Weight [facility] 105.625, kg, Patient is NPO, Start date: 01/03/16 9:00:00 CDT, Duration: 30 day, Stop date: 02/01/16 9:00:00 CDT Enoxaparin 40 mg, 0.4 mL, No Longer Route: SUB-Q, Active 2015 [facility] Drug form: INJ, [facility] [id number], Dosing Weight 105.625, kg, Consider for obese patients, Start date: 01/03/16 4:00:00 CDT, Duration: 30 day, Stop date: 02/01/16 16:00:00 CDTNotes: (Same as: Lovenox) Citalopram 60 mg, PO, Active Daily, 0 2015 [facility] Refill(s) [facility] tolterodine 4 4 mg=1 cap, PO, Active mg oral Daily, # 30 2015 [facility] capsule, cap, 1 [facility] extended Refill(s) release gabapentin 300 300 mg=1 cap, Active MG Oral Capsule PO, QID, 0 2015 [facility] Refill(s) [facility] Hydroxyzine 25 mg=1 cap, Active Hydrochloride PO, Bedtime, 2016 [facility] 25 MG Oral PRN Insomnia, 0 [facility] Capsule Refill(s) Trazodone 100 mg=1 tab, Active Hydrochloride PO, Bedtime, # 2016 [facility] 100 MG Oral 30 tab, 0 [facility] Tablet Refill(s) tizanidine 4 mg 8 mg=2 tab, PO, No Longer oral tablet Q8H, # 180 tab, Active 2015 [facility] 0 Refill(s) [facility] meloxicam 7.5 7.5 mg=1 tab, No Longer mg oral tablet PO, Daily, # 30 Active 2015 [facility] tab, 0 [facility] Refill(s) Acetaminophen 1 tab, PO, Q6H, No Longer 325 MG / PRN Pain, # 60 Active 2015 [facility] Hydrocodone tab, 0 [facility] Bitartrate 7.5 Refill(s) MG Oral Tablet bisacodyl 5 mg 10 mg=2 tab, Active oral enteric PO, Daily, PRN 2016 [facility] coated tablet Constipation, # City 20 tab, 0 Refill(s) Bupropion 150 mg, PO, 0 Active Refill(s) 2015 [facility] clonazePAM 0.5 0.5 mg=1 tab, No Longer mg oral tablet PO, Q6H, PRN Active 2015 [facility] Anxiety, 0 City Refill(s) Saline Flush 10 ml, Route: Inactive 0.9% IVP, Drug Form: 2015 [facility] INJ, Dosing [place] Weight 105.625, kg, PRN, PRN Line Flush, Start date: 01/03/16 3:12:00 CDT, Duration: 30 day, Stop date: 02/02/16 3:11:00 CDTNotes: (Same as: BD Posiflush) Ondansetron 4 mg, 2 mL, No Longer Route: IVP, Active 2015 [facility] Drug form: INJ, [place] Q6H, Dosing Weight 105.625, kg, PRN Nausea & Vomiting, Start date: 01/03/16 3:12:00 CDT, Duration: 30 day, Stop date: 02/02/16 3:11:00 CDTNotes: (Same as: Zofran) MEDICATION WASTE Product Size: 4 mg Product Wasted: ___ mg Morphine 4 mg, 1 mL, No Longer Route: IVP, Active 2015 [facility] Drug form: INJ, [place] Q4H, Dosing Weight 105.625, kg, PRN Pain Score 7-10, Start date: 01/03/16 3:12:00 CDT, Stop date: 02/02/16 3:11:00 CDTNotes: (Same as:MORPhine Sulfate) Sodium Chloride 1,000 mL, Rate: Inactive 0.154 MEQ/ML 125 ml/hr, 2015 [facility] Injectable Infuse over: 8 City Solution hr, Route: IV, Dosing Weight 105.625 kg, Total Volume: 1,000, Start date: 01/03/16 3:12:00 CDT, Duration: 30 day, Stop date: 02/02/16 3:11:00 CDT Lidoderm 5% 1 patch, TOP, Active Estephania topical film Daily, Remove [address] [place] [address] (patch) after 12 hours, # 30 patch, 0 Refill(s), given to patientRemove after 12 hours citalopram 20 20 mg=1 tab, Active Ajmani MH mg oral tablet PO, BID-After 2013 Meals, # 60 tab, 0 Refill(s), given to patient rivastigmine =1 patch, TOP, Active Anigbogu 06/20/ MH 4.6 mg/24 hr Daily, # 30 2013 [facility] transdermal patch, 0 film, extended Refill(s) release mirtazapine 15 7.5 mg=0.5 tab, Active Anigbogu 06/20/ MH mg oral tablet PO, Bedtime, # 2013 30 tab, 0 Refill(s) Exelon 4.6 mg, 1 No Longer Raichman patch, Route: Active 2013 [facility] TOP, Drug form: ERFILM, Daily, Start date: 06/17/13 9:00:00, Duration: 30 day, Stop date: 07/16/13 9:00:00Same as Exelon "Remove old patch before application of new patch" Lidoderm 5% 1 patch, Route: No Longer Anigbogu topical film TOP, Daily, Active 2013 [facility] (patch) Drug form: FILM, Start date: 06/17/13 [...] Longer Raichman Route: PO, Drug Active 2013 [facility] form: TAB, BID-After Meals, Start date: 06/17/13 8:30:00, Duration: 30 day, Stop date: 07/16/13 13:00:00(Same As: CeleXA) Remeron 7.5 mg, 0.5 No Longer Anigbogu MH tab, Route: PO, Active 2013 [facility] Drug form: TAB, Bedtime, Start date: 06/15/13 21:00:00, Duration: 30 day, Stop date: 07/14/13 21:00:00(Same as:Remeron) Singulair 10 mg, 1 tab, No Longer Anigbogu Route: PO, Drug Active 2013 [facility] form: TAB, Bedtime, Start date: 06/14/13 21:00:00, Duration: 30 day, Stop date: 07/13/13 21:00:00(Same as:Singulair) fluticasone 2 inhalation, No Longer Anigbogu nasal 0.05 Route: NASAL, Active 2013 [facility] mg/inh spray Drug Form: SPRY, BID, Start date: 06/14/13 9:00:00, Duration: 30 day, Stop date: 07/13/13 17:00:00(Same as: Flonase) Claritin 10 mg, 1 tab, No Longer Anigbogu Route: PO, Drug Active 2013 [facility] form: TAB, Daily, Start date: 06/14/13 9:00:00, Duration: 30 day, Stop date: 07/13/13 9:00:001 hr before meals (Same as: Claritin) polyethylene 17 gm, 1 pkt, No Longer Anigbogu glycol 3350 Route: PO, Drug Active 2013 [facility] form: PWDR, Daily, Dosing Weight 105.455, kg, Start date: 06/14/13 9:00:00, Duration: 30 day, Stop date: 07/13/13 9:00:00Dissolve in 8 oz of water or juice. (Same as: Miralax) Senokot 8.6 mg, 1 tab, No Longer Anigbogu Route: PO, Drug Active 2013 [facility] form: TAB, BID, Start date: 06/14/13 9:00:00, Duration: 30 day, Stop date: 07/13/13 17:00:00(Same as: Senokot) PROzac 40 mg, 2 cap, No Longer Anigbogu Route: NG, Drug Active 2013 [facility] form: CAP, Daily, Start date: 06/14/13 9:00:00, Duration: 30 day, Stop date: 07/13/13 9:00:00(Same as: Prozac, Sarafem) Mycelex Shaina 10 mg, 1 No Longer Anigbogu lozenge, Route: Active 2013 [facility] MUCOUS MEM, Drug form: WINSTON, TID, Start date: 06/14/13 8:00:00, Duration: 30 day, Stop date: 07/13/13 21:00:00(Same As: Mycelex Shaina) Levothroid 50 microgram, 1 No Longer Anigbogu tab, Route: PO, Active 2013 [facility] Drug form: TAB, [id number], Start date: 06/14/13 6:30:00, Duration: 30 day, Stop date: 07/13/13 6:30:00Take 1 hour before or 2 hours after meal; Enteral feeds may interefere with the absorption of this medication.(Jhonatan e as:Levothroid, Synthroid) vancomycin 750 mg, 150 mL, No Longer Anigbogu Route: IVPB, Active 2013 [facility] Drug form: SOLN, [id number], Start date: 06/14/13 3:00:00, Duration: 30 day, Stop date: 07/13/13 18:00:00Same as: Vancocin Lovenox 40 mg, 0.4 mL, No Longer Anigbogu Route: SUB-Q, Active 2013 [facility] Drug form: INJ, [id number], Start date: 06/13/13 23:00:00, Duration: 30 day, Stop date: 07/12/13 23:00:00(Same as: Lovenox) Restoril 15 mg, 1 cap, No Longer Anigbogu Route: PO, Drug Active 2013 [facility] form: CAP, Bedtime, PRN Sleep, Start date: 06/13/13 21:37:00, Duration: 30 day, Stop date: 07/13/13 21:36:00(Same As: Restoril) Ativan 1 mg, 2 tab, No Longer Anigbogu Route: PO, Drug Active 2013 [facility] form: TAB, Q4H, PRN Anxiety, Start date: 06/13/13 21:31:00, Stop date: 07/13/13 21:30:00(Same as: Ativan) acetaminophen-h 1 tab, Route: No Longer Anigbogu ydrocodone 325 PO, Drug Form: Active 2013 [facility] mg-5 mg oral TAB, Dosing tablet Weight 105.455, kg, Q4H, PRN Pain Score 1-3, Start date: 06/13/13 21:01:00, Duration: 30 day, Stop date: 07/13/13 21:00:00(Same as: [place] 325/5) Do not exceed 4gm/day of acetaminophen. acetaminophen 650 mg, 2 tab, No Longer Anigbogu Route: PO, Drug Active 2013 [facility] form: TAB, Q4H, Dosing Weight 105.455, kg, PRN Pain Score 1-3, Start date: 06/13/13 21:01:00, Duration: 30 day, Stop date: 07/13/13 21:00:00Do not exceed 4 gm/day. (Same as: Tylenol) Saline Flush 3 mL, Route: No Longer Anbogu 0.9% IVP, Drug Form: Active 2013 [facility] INJ, Dosing Weight 105.455, kg, Q8H, PRN Line Flush, Start date: 06/13/13 21:01:00, Duration: 30 day, Stop date: 07/13/13 21:00:00, Administer at least once every 8 hoursAdminister at least once every 8 hours(Same as: BD Posiflush) bisacodyl 10 mg, 1 supp, No Longer Anigbogu Route: AR, Drug Active 2013 [facility] form: SUPP, Bedtime, Dosing Weight 105.455, kg, PRN Constipation, Start date: 06/13/13 21:01:00, Duration: 30 day, Stop date: 07/13/13 21:00:00(Same As: Dulcolax, Bisco-Lax) temazepam 15 mg 15 mg=1 cap, Active Estephania oral capsule PO, Bedtime, 2013 [facility] Sleep, # 5 cap, 0 Refill(s) vancomycin 750 1,054.55 mg, Active Shanekai mg intravenous IV, Q24H, # 14 2013 [facility] injection bag, 0 Refill(s), called to pharmacy senna 8.6 mg 8.6 mg=1 tab[facility], BID, # 36 2013 [facility] tab, 0 Refill(s) LORazepam 1 mg 1 mg=1 tab, PO, Active mani MH oral tablet Q4H, Anxiety, # 2014 [facility] 10 tab, 0 Refill(s) loratadine 10 10 mg=1 tab, [facility] PO, Daily, # 20 2013 [facility] tab, 0 Refill(s) fluticasone 100 microgram=[address] [facility] nasal 0.05 inhalation, 2013 [facility] mg/inh spray NASAL, BID, # 1 ea, 0 Refill(s) enoxaparin 40 40 mg=0.4 mL, Active [facility] mg/0.4 mL SUB-Q, Q24H, # 2013 [facility] subcutaneous 30 mL, 0 solution Refill(s) clotrimazole 10 10 mg=[address] [facility] mg oral lozenge lozenge, MUCOUS 2013 [facility] MEM, TID, # 90 lozenge, 0 Refill(s) clonazePAM 0.5 0.5 mg=1 tab, Active [facility] tablet PO, Daily, # 30 2013 [facility] tab, 0 Refill(s), called to pharmacy acetaminophen 650 mg=2 tab, [facility] mg oral PO, Q6H, Pain, 2013 [facility] tablet # 50 tab, 0 Refill(s), called to pharmacy acetaminophen-h 1 tab, PO, Q4H, Active [facility] ydrocodone 325 Pain, # 12 tab, 2014 [facility] mg-10 mg oral 0 Refill(s), tablet called to pharmacy tolterodine 4 4 mg=1 cap, PO, Active [facility] oral Daily, # 30 2013 [facility] capsule, cap, 0 extended Refill(s), release called to pharmacy Lovenox 40 mg, 0.4 mL, No Longer [facility] Route: SUB-Q, Active 2013 [facility] Drug form: INJ, Q24H, Start date: 06/11/13 23:00:00, Duration: 30 day, Stop date: 07/10/13 23:00:00(Same as: Lovenox) acetaminophen-h 1 tab, Route: No Longer ydrocodone 325 PO, Drug Form: Active 2013 [facility] mg-5 mg oral TAB, ONCALL, tablet PRN Pain, Start date: 06/11/13 18:45:00, Duration: 30 day, Stop date: 07/11/13 18:44:00(Same as: [place] 325/5) Do not exceed 4gm/day of acetaminophen. Claritin 10 mg, 1 tab, No Longer Route: PO, Drug Active 2013 [facility] form: TAB, Daily, Start date: 06/11/13 9:00:00, Duration: 30 day, Stop date: 07/10/13 9:00:001 hr before meals (Same as: Claritin) Senokot 8.6 mg, 1 tab, No Longer Route: PO, Drug Active 2013 [facility] form: TAB, BID, Start date: 06/11/13 9:00:00, Duration: 30 day, Stop date: 07/10/13 17:00:00(Same as: Senokot) Mycelex Shaina 10 mg, 1 No Longer lozenge, Route: Active 2013 [facility] MUCOUS MEM, Drug form: WINSTON, TID, Start date: 06/10/13 21:00:00, Duration: 30 day, Stop date: 07/10/13 12:00:00(Same As: Mycelex Shaina) Singulair 10 mg, 1 tab, No Longer Route: PO, Drug Active 2013 [facility] form: TAB, Bedtime, Start date: 06/10/13 21:00:00, Duration: 30 day, Stop date: 07/09/13 21:00:00(Same as:Singulair) acetaminophen-h 1 tab, Route: No Longer ydrocodone 325 PO, Drug Form: Active 2013 [facility] mg-10 mg oral TAB, Q4H, PRN tablet Pain, Start date: 06/10/13 20:32:00, Duration: 30 day, Stop date: 07/10/13 20:31:00Do not exceed 4gm/day of acetaminophen. (Same as: [place] 325/10) Ativan 1 mg, 1 tab, No Longer Shaneka Route: PO, Drug Active 2013 [facility] form: TAB, Q4H, PRN Anxiety, Start date: 06/10/13 20:32:00, Duration: 30 day, Stop date: 07/10/13 20:31:00(Same as: Ativan) potassium 20 mEq, 100 mL, Inactive cinthia chloride Route: IVPB, 2013 [facility] Drug form: INJ, Q2H, Start date: 06/09/13 21:00:00, Duration: 2 doses or times, Stop date: 06/09/13 23:00:00(Same as: KCL) Infuse no faster than 10 mEq/hr if given peripherally. fluticasone 2 inhalation, No Longer Shaneka nasal 0.05 Route: NASAL, Active 2013 [facility] mg/inh spray Drug Form: SPRY, BID, Start date: 06/08/13 9:00:00, Duration: 30 day, Stop date: 07/07/13 17:00:00(Same as: Flonase) Benadryl 25 mg, 0.5 mL, No Longer [place] Route: IV, Drug Active 2013 [facility] form: INJ, Q12H, Start date: 06/07/13 21:00:00, Stop date: 07/07/13 9:00:00(Same as: Benadryl) amino acids 5% 2,000 mL, Rate: No Longer cinthiai w/Lytes/D15W 75 ml/hr, Active 2013 [facility] 2000ml Infuse over: (clinimixE) 26.8 hr, Route: 2,000 mL + IV, Dosing thiamine 100 mg Weight 105.455 + folic acid 1 kg, Total mg + phyto Volume: 2,011.3, Start date: 06/07/13 21:00:00, Duration: 30 day, Stop date: 07/07/13 20:59:00Same as: Clinimix E 5/15 Standard electrolytes for this formulation listed on bag fat emulsion, 250 mL, 31.25 No Longer intravenous ml/hr, Route: Active 2013 [facility] IV, Drug Form: INJ, Daily, Start date: 06/07/13 21:00:00, Duration: 30 day, Stop date: 07/06/13 21:00:00(Same as: Intralipid, Liposyn) potassium 40 mEq, 200 mL, Inactive chloride Route: IVPB, 2013 [facility] Drug form: INJ, ONCE, Start date: 06/07/13 20:02:00, Stop date: 06/07/13 20:02:00(Same as: KCL) Infuse no faster than 10 mEq/hr if given peripherally. Lasix 40 mg, 4 mL, Inactive Route: IV, Drug 2013 [facility] form: INJ, ONCE, Start date: 06/07/13 20:01:00, Stop date: 06/07/13 20:01:00(Same as: Lasix) nystatin susp nystatin susp No Longer 30 ml+lidocaine 30 ml+lidocaine Active 2013 [facility] visc 30 ml visc 30 ml, 5 mL, Drug form: MISC, Route: S&SWALLOW, Q3H-WA, 06/07/13 20:00:00, Stop date: 07/07/13 17:00:00 Lovenox 100 mg, 1 mL, No Longer Route: SUB-Q, 2013 [facility] Drug form: INJ, [id number], Start date: 06/07/13 20:00:00, Duration: 30 day, Stop date: 07/06/13 20:00:00Nurse to ensure documentation of patient education per anticoagulation policy. (Same as: Lovenox) Diflucan 200 mg, 100 mL, No Longer Route: IVPB, Active 2013 [facility] Drug form: INJ, [id number], Start date: 06/07/13 20:00:00, Duration: 30 day, Stop date: 07/06/13 20:00:00(Same as: Diflucan) Do not refrigerate amino acids 1,000 mL, Rate: No Longer 4.25% 90 ml/hr, Active 2013 [facility] w/Lytes/D5W Infuse over: 1000ml 11.1 hr, Route: (clinimixE) IV, Dosing 1,000 mL Weight 105.455 kg, Total Volume: 1,000, Start date: 06/07/13 12:26:00, Stop date: 06/08/13 21:00:00Same as: ClinimixE vancomycin 750 mg, 150 mL, No Longer Route: IVPB, Active 2013 [facility] Drug form: SOLN, [id number], Start date: 06/06/13 15:00:00, Duration: 30 day, Stop date: 07/06/13 3:00:00Same as: Vancocin Maxipime + 2 gm, Route: No Longer Sodium Chloride IVPB, [id number], Active 2013 [facility] 0.9% IV 100 mL Start date: 06/06/13 14:00:00, Duration: 30 day, Stop date: 07/06/13 6:00:00(Same as: Maxipime) Tylenol 650 mg, 1 supp, No Longer [place] Route: AR, Drug Active 2013 [facility] form: SUPP, Q4H, PRN Pain/Fever, Start date: 06/06/13 13:03:00, Stop date: 07/06/13 13:02:00Max acetaminophen=4 000 mg/day (4 gm/day). (Same as: Tylenol) Lasix 40 mg, 4 mL, Inactive [facility] Route: IV, Drug 2013 [facility] form: INJ, ONCALL, Start date: 06/06/13 13:00:00, Duration: 30 day, Stop date: 07/06/13 12:59:00(Same as: Lasix) Lasix 40 mg, 4 mL, Inactive [facility] Route: IV, Drug 2013 [facility] form: INJ, ONCE, Start date: 06/06/13 12:03:00, Stop date: 06/06/13 12:03:00(Same as: Lasix) potassium 40 mEq, 200 mL, Inactive [facility] chloride Route: IVPB, 2013 [facility] Drug form: INJ, ONCE, Start date: 06/06/13 12:03:00, Stop date: 06/06/13 12:03:00(Same as: KCL) Infuse no faster than 10 mEq/hr if given peripherally. Ativan 1 mg, 0.5 mL, No Longer Estephania Route: IV, Drug Active 2013 [facility] form: INJ, Q6H, Start date: 06/06/13 0:00:00, Duration: 30 day, Stop date: 07/05/13 18:00:00(Same as: Ativan) Venofer + 100 mg, 5 mL, No Longer Estephania Sodium Chloride Route: IV, Active 2013 [facility] 0.9% IV 100 mL Q24H, Start date: 06/05/13 21:00:00, Duration: 30 day, Stop date: 07/04/13 21:00:00 amino acids 1,000 mL, Rate: No Longer lucedalecollin 4.25% 90 ml/hr, Active 2013 [facility] w/Lytes/D5W Infuse over: 1000ml 11.1 hr, Route: (clinimixE) IV, Dosing 1,000 mL Weight 105.455 kg, Total Volume: 1,000, Start date: 06/05/13 20:40:00, Duration: 30 day, Stop date: 07/05/13 20:39:00Same as: ClinimixE ceFAZolin 2 gm, 100 mL, No Longer Stokes Route: IVPB, Active 2013 [facility] Drug form: INJ, [id number], Start date: 06/05/13 20:00:00, Duration: 30 day, Stop date: 07/05/13 12:00:00Same as: Ancef promethazine 6.25 mg, Route: Inactive Nawaf IVPB, ONCE, 2013 [facility] Dosing Weight 105.455, kg, PRN Nausea & Vomiting, Start date: 06/05/13 17:43:00 ondansetron 4 mg, 2 mL, Inactive Nawaf Route: IVP, 2013 [facility] Drug form: INJ, ONCE, Dosing Weight 105.455, kg, PRN Nausea & Vomiting, Start date: 06/05/13 17:43:00(Same as: Zofran) naloxone 0.04 mg, 0.1 Inactive Nawaf mL, Route: IVP2013 [facility] Drug form: INJ, Q2MIN, Dosing Weight 105.455, kg, PRN Narcotic Reversal, Start date: 06/05/13 17:43:00, Duration: 8 doses or times, Stop date: 06/05/13 23:00:00(Same as: Narcan) flumazenil 0.2 mg, 2 mL, Inactive [place] 06/05[facility] Route: IVP2013 [facility] Drug form: INJ, PRN, Dosing Weight 105.455, kg, PRN Benzodiazepine Reversal, Initial dose, Start date: 06/05/13 17:43:00, Stop date: 06/05/13 23:00:00(Same as: Romazicon) meperidine 12.5 mg, Route: Inactive N[place] 06/05[facility] IVP, Q30Min, 2013 [facility] Dosing Weight 105.455, kg, PRN Other -See Comment, For shivering, Start date: 06/05/13 17:43:00, Duration: 2 doses or times, Stop date: Limited # of times labetalol 10 mg, 2 mL, Inactive [place] 06/05[facility] Route: IVP2013 [facility] Drug form: INJ, Q5Min, Dosing Weight 105.455, kg, PRN Elevated BP, Start date: 06/05/13 17:43:00, Duration: 5 doses or times, Stop date: 06/05/13 23:00:00 hydrALAZINE 10 mg, 0.5 mL, Inactive [place] 06/05[facility] Route: IVP2013 [facility] Drug form: INJ, Q20Min, Dosing Weight 105.455, kg, PRN Elevated BP, Start date: 06/05/13 17:43:00, Duration: 2 doses or times, Stop date: 06/05/13 23:00:00(Same as: Apresoline) Push over 5 minutes hydromorphone 0.5 mg, 0.5 mL, Inactive [place] 06/05[facility] Route: IVP2013 [facility] Drug form: INJ, Q5Min, Dosing Weight 105.455, kg, PRN Pain Score 7-10, Start date: 06/05/13 17:43:00, Duration: 4 doses or times, Stop date: 06/05/13 23:00:00 fentanyl 25 microgram, Inactive [place] 0.5 mL, Route: 2013 [facility] IVP, Drug form: INJ, Q5Min, Dosing Weight 105.455, kg, PRN Pain Score 4-6, Start date: 06/05/13 17:43:00, Duration: 4 doses or times, Stop date: 06/05/13 23:00:00(Same as: Sublimaze) Preservative free. acetaminophen 1,000 mg, 100 Inactive [place] mL, Route: 2013 [facility] IVPB, Drug form: INJ, ONCE, Dosing Weight 105.455, kg, PRN Pain Score 1-3, Start date: 06/05/13 17:43:00, Duration: 1 doses or times, Stop date: Limited # of timesInfuse over 15 minutes Do not exceed 4gm/day of acetaminophen Protonix 40 mg, Route: No Longer Deridder IVP, Drug form: Active 2013 [facility] INJ, Before Dinner, Dosing Weight 105.455, kg, Patient is NPO, Start date: 06/05/13 16:39:00, Duration: 30 day, Stop date: 07/05/13 16:30:00For IV push reconstitute with 10 ml 0.9% sodium chloride and push over 2 minutes. (Same as: Protonix) Lovenox 40 mg, 0.4 mL, No Longer Deridder Route: SUB-Q, Active 2013 [facility] Drug form: INJ, [id number], Dosing Weight 105.455, kg, Start date: 06/05/13 16:00:00, Duration: 30 day, Stop date: 07/04/13 16:00:00(Same as: Lovenox) Ancef 2 gm, Route: Inactive Deridder IVPB, [id number], 2013 [facility] Dosing Weight 105.455, kg, Start date: 06/05/13 16:00:00, Duration: 30 day, Stop date: 07/05/13 8:00:00 Zofran 4 mg, 2 mL, No Longer Deridder Route: IV, Drug Active 2013 [facility] form: INJ, Q8H, Dosing Weight 105.455, kg, PRN Nausea, Start date: 06/05/13 15:42:00, Duration: 30 day, Stop date: 07/05/13 15:41:00(Same as: Zofran) fluorescein 500 mg, 5 mL, No Longer Ajmani ophthalmic Route: IV, Active 2013 [facility] ONCALL, Drug form: INJ, Start date: 06/05/13 12:00:00, Duration: 30 day, Stop date: 07/05/13 11:59:00(Same as: Fluorescite) Dulcolax 40 mg, 4 supp, Inactive Ajmani Laxative Route: AR, Drug 2013 [facility] form: SUPP, ONCE, Start date: 06/05/13 9:43:00, Stop date: 06/05/13 9:43:00(Same As: Dulcolax, Bisco-Lax) Klonopin 0.5 mg, 1 tab, No Longer Ajmani Route: PO, Drug Active 2013 [facility] form: TAB, Daily, Start date: 06/05/13 9:00:00, Duration: 30 day, Stop date: 07/04/13 9:00:00(Same As: Klonopin) Dulcolax 40 mg, 4 supp, Inactive Ajmani Laxative Route: AR, Drug 2013 [facility] form: SUPP, ONCE, Start date: 06/05/13 8:07:00, Stop date: 06/05/13 8:07:00(Same As: Dulcolax, Bisco-Lax) magnesium 4 gm, 100 mL, No Longer Ajmani sulfate Route: IVPB, Active 2013 [facility] Drug form: INJ, ONCALL, Start date: 06/05/13 8:00:00, Duration: 30 day, Stop date: 07/05/13 7:59:00 potassium 20 mEq, 100 mL, Inactive mani chloride Route: IVPB, 2013 [facility] Drug form: INJ, Q2H, Start date: 06/05/13 8:00:00, Duration: 2 doses or times, Stop date: 06/05/13 10:00:00(Same as: KCL) Infuse no faster than 10 mEq/hr if given peripherally. Dulcolax 10 mg, 1 supp, Inactive Ajmani Laxative Route: AR, Drug 2013 [facility] form: SUPP, ONCE, Start date: 06/05/13 7:38:00, Stop date: 06/05/13 7:38:00(Same As: Dulcolax, Bisco-Lax) morphine 4 mg, 1 mL, No Longer Abby Sulfate Route: IV, Drug Active 2013 [facility] form: INJ, Q2H, PRN Pain Score 6-10, Start date: 06/04/13 22:25:00, Stop date: 07/04/13 22:24:00(Same as:MORPhine Sulfate) Ativan 1 mg, 0.5 mL, No Longer Estephania Route: IV, Drug Active 2013 [facility] form: INJ, Q4H, PRN Agitation, Start date: 06/04/13 22:03:00, Duration: 30 day, Stop date: 07/04/13 22:02:00(Same as: Ativan) Klonopin 1 mg, 2 tab, Inactive Estephania Route: PO, Drug 2013 [facility] form: TAB, ONCE, Start date: 06/04/13 22:00:00, Stop date: 06/04/13 22:00:00(Same As: Klonopin) Ancef + Sodium 1 gm, Route: No Longer Abby Chloride 0.9% IVPB, [id number], Active 2013 [facility] IV 100 mL Dosing Weight 105.455, kg, Start date: 06/04/13 20:00:00, Duration: 30 day, Stop date: 07/04/13 12:00:00(Same As: Ancef, Kefzol) Dextrose 5% 1,000 mL, Rate: No Longer Abby with 0.45% NaCl 125 ml/hr, Active 2013 [facility] IV 1,000 mL + Infuse over: 8 potassium hr, Route: IV, chloride 10 mEq Dosing Weight 105.455 kg, Total Volume: 1,005, Start date: 06/04/13 15:57:00, Duration: 30 day, Stop date: 07/04/13 15:56:00 ondansetron 4 mg, 2 mL, Inactive Andres Route: IVP, 2013 [facility] Drug form: INJ, ONCE, Dosing Weight 105.455, kg, PRN Nausea & Vomiting, Start date: 06/04/13 15:50:00(Same as: Zofran) naloxone 0.04 mg, 0.1 Inactive Andres mL, Route: IVP2013 [facility] Drug form: INJ, Q2MIN, Dosing Weight 105.455, kg, PRN Narcotic Reversal, Start date: 06/04/13 15:50:00, Duration: 8 doses or times, Stop date: 06/04/13 23:00:00(Same as: Narcan) flumazenil 0.2 mg, 2 mL, Inactive Andres Route: IVP2013 [facility] Drug form: INJ, PRN, Dosing Weight 105.455, kg, PRN Benzodiazepine Reversal, Initial dose, Start date: 06/04/13 15:50:00, Duration: 30 day, Stop date: 07/04/13 15:49:00(Same as: Romazicon) acetaminophen 1,000 mg, 100 Inactive Andres mL, Route: 2013 [facility] IVPB, Drug form: INJ, ONCE, Dosing Weight 105.455, kg, PRN Pain Score 1-3, Start date: 06/04/13 15:50:00, Duration: 1 doses or times, Stop date: Limited # of timesInfuse over 15 minutes Do not exceed 4gm/day of acetaminophen morphine 2 mg, 1 mL, Inactive Andres Sulfate Route: IVP2013 [facility] Drug form: INJ, Q5Min, Dosing Weight 105.455, kg, PRN Pain Score 4-6, Start date: 06/04/13 15:50:00, Duration: 5 doses or times, Stop date: 06/04/13 23:00:00(Same as:MORPhine Sulfate) GoLYTELY 4,000 ml, Inactive Abby Route: NG, Drug 2013 [facility] Form: PDR/REC, Dosing Weight 105.455, kg, ONCE, Start date: 06/04/13 15:25:00, Duration: 1 doses or times, Stop date: 06/04/13 15:25:00(polyet hylene glycol electrolyte solution 4 Liter bottle) (Same as: Golytely, Colyte) D5W 1/2NS + KCL 1,000 mL, Rate: Inactive Abby 10mEq/L 1000ml 125 ml/hr, 2013 [facility] (Premix) 1000 Infuse over: 8 mL hr, Route: IV, Dosing Weight 105.455 kg, Total Volume: 1,000, Start date: 06/04/13 15:24:00, Duration: 30 day, Stop date: 07/04/13 15:23:00 morphine 2 mg, 1 mL, No Longer Abby Sulfate Route: IVP, Active 2013 [facility] Drug form: INJ, Q4H, Dosing Weight 105.455, kg, PRN Pain, Start date: 06/04/13 15:19:00, Duration: 30 day, Stop date: 07/04/13 15:18:00(Same as:MORPhine Sulfate) GoLYTELY 4,000 ml, Inactive Stokes Route: PO, Drug 2013 [facility] Form: PDR/REC, Dosing Weight 105.455, kg, ONCE, Start date: 06/04/13 13:00:00, Duration: 1 doses or times, Stop date: 06/04/13 13:00:00(polyet hylene glycol electrolyte solution 4 Liter bottle) (Same as: Golytely, Colyte) magnesium 4 gm, 100 mL, Inactive Estephania sulfate Route: IVPB, 2013 [facility] Drug form: INJ, ONCALL, Start date: 06/03/13 20:00:00, Duration: 30 day, Stop date: 07/03/13 19:59:00 K-Dur 20 40 mEq, 2 tab, Inactive Estephania Route: PO, Drug 2013 [facility] form: ERTAB, ONCALL, Start date: 06/03/13 19:00:00, Duration: 1 doses or times(Same as: K-Dur 20) "Do Not Crush" With food and full glass of water Tylenol 650 mg, 2 tab, No Longer Augustus Route: PO, Drug Active 2013 [facility] form: TAB, Q6H, Dosing Weight 105.455, kg, PRN Pain, Start date: 06/01/13 10:33:00, Duration: 30 day, Stop date: 07/01/13 10:32:00Do not exceed 4 gm/day. (Same as: Tylenol) Valium 2 mg, 1 tab, No Longer Abby Route: PO, Drug Active 2013 [facility] form: TAB, BID, Dosing Weight 105.455, kg, PRN Anxiety, Start date: 05/31/13 18:33:00, Duration: 30 day, Stop date: 06/30/13 18:32:00(Same as: Valium) Protonix 40 mg, 1 tab, No Longer Shanekai Route: PO, Drug Active 2013 [facility] form: ECTAB, Before Dinner, Start date: 05/31/13 16:30:00, Duration: 30 day, Stop date: 06/29/13 16:30:00Tablet should not be chewed or crushed. (Same as: Protonix) PROzac 40 mg, 2 cap, No Longer Estephania Route: NG, Drug Active 2013 [facility] form: CAP, Daily, Start date: 05/31/13 10:30:00, Stop date: 06/30/13 9:00:00(Same as: Prozac, Sarafem) Levothroid 50 microgram, 1 No Longer cinthiai tab, Route: PO, 2013 [facility] Drug form: TAB, [id number], Start date: 05/31/13 10:30:00, Duration: 30 day, Stop date: 06/30/13 6:30:00Take 1 hour before or 2 hours after meal; Enteral feeds may interefere with the absorption of this medication.(Jhonatan e as:Levothroid, Synthroid) Detrol LA 4 mg, 1 cap, No Longer Estephania Route: PO, Drug 2013 [facility] form: CAP, Daily, Start date: 05/31/13 10:30:00, Duration: 30 day, Stop date: 06/30/13 9:00:00Do Not Crush. (Same As: Detrol LA) Sodium Chloride 250 mL, Route: No Longer Goodman 0.9% IV IVPB, Start Active 2013 [facility] date: 05/31/13 10:11:00, Duration: 30 day, Stop date: 06/30/13 10:10:00, PRN Line Flush BD Normal 10 mL, Route: No Longer Goodman Saline Flush IVP, Drug Form: 2013 [facility] INJ, PRN, PRN Line Flush, Start date: 05/31/13 10:11:00, Duration: 30 day, Stop date: 06/30/13 10:10:00(Same as: BD Posiflush) Restoril 15 mg, 1 cap, No Longer Ajmani Route: PO, Drug Active 2013 [facility] form: CAP, Bedtime, PRN Sleep, Start date: 05/31/13 10:10:00, Duration: 30 day, Stop date: 06/30/13 10:09:00(Same As: Restoril) Readi-Cat 2 450 mL, Route: No Longer Ajmani PO, Drug Form: Active 2013 [facility] SUSP, ONCALL, Start date: 05/31/13 10:00:00, Duration: 30 day, Stop date: 06/30/13 9:59:00Same as Readi-Cat 2 Zofran 4 mg, 2 mL, No Longer Goodman Route: IVP, Active 2013 [facility] Drug form: INJ, Q4H, PRN Nausea, Start date: 05/31/13 5:49:00, Duration: 30 day, Stop date: 06/30/13 5:48:00(Same as: Zofran) morphine 4 mg, 2 mL, No Longer Goodman Sulfate Route: IV, Drug Active 2013 [facility] form: INJ, Q4H, PRN Pain, Start date: 05/31/13 5:49:00, Duration: 30 day, Stop date: 06/30/13 5:48:00(Same as:MORPhine Sulfate) Sodium Chloride 1,000 mL, Rate: No Longer Goodman 0.45% IV 1,000 75 ml/hr, Active 2013 [facility] mL Infuse over: 13.3 hr, Route: IV, Dosing Weight 105.455 kg, Total Volume: 1,000, Start date: 05/31/13 5:49:00, Duration: 30 day, Stop date: 06/30/13 5:48:00 Detrol LA 4 mg 4 mg=1 cap, PO, No Longer oral capsule, Daily, at Active 2013 [facility] extended bedtime, # 30 release cap, 0 Refill(s)at bedtime fluoxetine 40 40 mg=1 cap, Active mg oral capsule PO, Daily, at 2013 AM, # 30 cap, 0 Refill(s)at 9 AM Synthroid 50 50 microgram=1 Active mcg (0.05 mg) tab, PO, Daily, 2013 [facility] oral tablet at 9 AM, # 30 tab, 0 Refill(s)at 9 AM Prevacid 30 mg 30 mg=1 cap, Active oral delayed PO, Daily, at 2013 [facility] release capsule bedtime, # 30 cap, 0 Refill(s)at bedtime pneumococcal 0.5 ml, Route: No Longer SYSTEM 23-valent IM, Drug Form: Active 2013 [facility] vaccine INJ, ONCALL, Start date: 05/31/13 3:38:03, Stop date: 06/30/13 3:33:03(Same as: Pneumovax 23) Refrigerate influenza virus 0.5 mL, Route: No Longer SYSTEM vaccine, IM, Drug Form: Active 2013 [facility] inactivated SUSP, ONCALL, Start date: 05/31/13 3:38:03, Stop date: 06/30/13 3:33:03(Same as: Fluzone) Azactam 1 gm, Route: IVPB No Longer Deridder IVPB, [id number], Active 2011 [facility] Start date: 09/21/11 14:00:00, Duration: 30 day, Stop date: 10/21/11 6:00:00 nystatin-triamc 1 appl, Route: TOP No Longer Deridder inolone topical TOP, BID, Drug Active 2011 [facility] cream form: CRM, Start date: 09/20/11 9:00:00, Duration: 30 day, Stop date: 10/19/11 17:00:00 Lovenox 40 mg, 0.4 mL, SUB-Q No Longer Deridder Route: SUB-Q, Active 2011 [facility] Drug form: INJ, [id number], Start date: 09/20/11 4:00:00, Duration: 30 day, Stop date: 10/19/11 4:00:00 Lovenox 40 mg, 0.4 mL, SUB-Q No Longer Deridder Route: SUB-Q, Active 2011 [facility] Drug form: INJ, Q12H, Start date: 09/20/11 0:00:00, Duration: 30 day, Stop date: 10/19/11 12:00:00 Lasix 20 mg, 1 tab, PO No Longer Deridder Route: PO, Drug Active 2011 [facility] form: TAB, Daily, Start date: 09/19/11 17:45:00, Duration: 30 day, Stop date: 10/19/11 9:00:00 K-Dur 20 40 mEq, 2 tab, PO No Longer Deridder Route: PO, Drug Active 2011 [facility] form: ERTAB, BID, Start date: 09/19/11 17:43:00, Duration: 30 day, Stop date: 10/19/11 17:00:00 vancomycin 1 gm, Route: IVPB No Longer Rehanlucedalecollin IVPB, [id number], Active 2011 [facility] Start date: 09/19/11 14:00:00, Duration: 30 day, Stop date: 10/18/11 14:00:00 levofloxacin 750 mg, 1 tab, PO No Longer Deridder Route: PO, Drug Active 2011 [facility] form: TAB, Q24H, Start date: 09/19/11 14:00:00, Duration: 30 day, Stop date: 10/18/11 14:00:00 Benadryl 25 mg, 1 cap, PO No Longer Deridder Route: PO, Drug Active 2011 [facility] form: CAP, Q6H, PRN See Nurse's Notes, Start date: 09/19/11 9:39:00, Duration: 30 day, Stop date: 10/19/11 9:38:00 acetaminophen-h 1 tab, Route: PO No Longer Estephania ydrocodone 325 PO, Drug Form: Active 2011 [facility] mg-5 mg oral TAB, Q4H, PRN tablet Pain, Start date: 09/18/11 21:34:00, Duration: 30 day, Stop date: 10/18/11 21:33:00 Xopenex 0.63 mg, 3 mL, NEB No Longer Deridder Route: NEB, Active 2011 [facility] Drug form: SOLN, RTID, Start date: 09/18/11 20:00:00, Duration: 30 day, Stop date: 10/18/11 14:00:00 ipratropium 0.5 mg, 2.5 mL, NEB No Longer Deridder 0.02% Route: NEB Active 2011 [facility] inhalation Drug form: solution SOLN, RTID, Start date: 09/18/11 20:00:00, Duration: 30 day, Stop date: 10/18/11 14:00:00 Xopenex 0.63 mg, 3 mL, NEB No Longer Deridder Route: NEB, Active 2011 [facility] Drug form: SOLN, RTID, PRN See Respiratory Notes, Start date: 09/18/11 15:36:00, Duration: 30 day, Stop date: 10/18/11 15:35:00 ipratropium 0.5 mg, 2.5 mL, NEB No Longer Deridder 0.02% Route: NEB2011 [facility] inhalation Drug form: solution SOLN, RTID, PRN See Nurse's Notes, Start date: 09/18/11 15:35:00, Duration: 30 day, Stop date: 10/18/11 15:34:00 ferrous sulfate 325 mg, 1 tab, PO No Longer Deridder Route: PO, Drug Active 2011 [facility] form: TAB, BID-Meals, Start date: 09/17/11 17:00:00, Duration: 30 day, Stop date: 10/17/11 8:00:00 Lovenox 40 mg, 0.4 mL, SUB-Q No Longer Deridder Route: SUB-Q, Active 2011 [facility] Drug form: INJ, [id number], Start date: 09/17/11 16:00:00, Duration: 30 day, Stop date: 10/16/11 12:00:00 Levaquin 500 mg, 1 tab, PO No Longer Deridder Route: PO, Drug Active 2011 [facility] form: TAB, [id number], Start date: 09/17/11 15:00:00, Duration: 30 day, Stop date: 10/16/11 15:00:00 Xenaderm 1 appl, Route: TOP No Longer Deridder TOP, Daily, Active 2011 [facility] Drug form: OINT, Start date: 09/17/11 9:00:00, Duration: 30 day, Stop date: 10/16/11 9:00:00 Ambien 5 mg, 1 tab, PO No Longer Deridder Route: PO, Drug Active 2011 [facility] form: TAB, Bedtime, PRN Insomnia, Start date: 09/16/11 22:02:00, Duration: 30 day, Stop date: 10/16/11 22:01:00 Nephro-Idania Rx 1 tab, Route: PO No Longer Deridder PO, Drug Form: Active 2011 [facility] TAB, BID, Start date: 09/16/11 17:00:00, Duration: 30 day, Stop date: 10/16/11 9:00:00 Protonix 40 mg, 1 tab, PO No Longer Deridder Route: PO, Drug Active 2011 [facility] form: ECTAB, Before Dinner, Start date: 09/16/11 16:30:00, Duration: 30 day, Stop date: 10/15/11 16:30:00 vancomycin 1 gm, Route: IVPB No Longer [facility] IVPB, [id number], Active 2011 [facility] Start date: 09/16/11 14:00:00, Duration: 30 day, Stop date: 10/14/11 14:00:00 Diflucan 200 mg, 1 tab, PO No Longer [facility] Route: PO, Drug Active 2011 [facility] form: TAB, [id number], Start date: 09/16/11 14:00:00, Duration: 30 day, Stop date: 10/15/11 14:00:00 Dilaudid 1 mg, 0.5 mL, IV No Longer [facility] Route: IV, Drug Active 2011 [facility] form: INJ, Q4H, PRN Pain, Start date: 09/16/11 13:27:00, Duration: 30 day, Stop date: 10/16/11 13:26:00 Reglan 5 mg, 1 tab, PO No Longer Deridder Route: PO, Drug Active 2011 [facility] form: TAB, TID-Before Meals, Start date: 09/16/11 13:21:00, Duration: 30 day, Stop date: 10/16/11 11:30:00 Levothroid 0.05 mg, 1 tab, PO No Longer Deridder 09/15/ Route: PO, Drug Active 2011 [facility] form: TAB, [id number], Start date: 09/16/11 13:18:00, Duration: 30 day, Stop date: 10/16/11 6:30:00 Lovenox 30 mg, 0.3 mL, SUB-Q No Longer Stokes 09/15/ MH Route: SUB-Q, Active 2011 [facility] Drug form: INJ, QNoon, Start date: 09/16/11 12:00:00, Duration: 30 day, Stop date: 10/15/11 12:00:00 Lasix 40 mg, 4 mL, IV No Longer Deridder Route: IV, Drug Active 2011 [facility] form: INJ, ONCE, Start date: 09/16/11 10:30:00, Stop date: 09/16/11 10:30:00 acetylcysteine 400 mg, 2 mL, NEB No Longer Deridder MH Route: [facility] Drug Form: SOLN, RQ8H, Start date: 09/15/11 23:00:00, Duration: 30 day, Stop date: 10/15/11 15:00:00 Sublimaze 25 microgram, IV No Longer Deridder 09/15/ 0.5 mL, Route: Active 2011 [facility] IV, Drug form: INJ, Q2H, PRN Pain, Start date: 09/15/11 20:40:00, Duration: 30 day, Stop date: 10/15/11 20:39:00 Lasix 40 mg, 4 mL, IV No Longer Deridder 09/14/ MH Route: IV, Drug Active 2011 [facility] form: INJ, ONCE, Start date: 09/15/11 17:28:00, Stop date: 09/15/11 17:28:00 Pulmicort 1 mg, 4 mL, NEB No Longer Deridder 09/14/ MH Respules Route: NEB Active 2011 [facility] Drug form: SOLN, RQ12H, Start date: 09/15/11 17:27:00, Duration: 30 day, Stop date: 10/15/11 16:00:00 MiraLax 17 gm, 1 pkt, NG No Longer Stokes MH Route: NG, Drug Active 2011 [facility] form: PWDR, Daily, Start date: 09/14/11 18:00:00, Duration: 30 day, Stop date: 10/14/11 9:00:00 potassium 20 mmol, 6.67 IV No Longer Kike phosphate mL, Route: IV, Active 2011 [facility] ONCE, Start date: 09/14/11 18:00:00, Stop date: 09/14/11 18:00:00 Dulcolax 20 mg, 2 supp, AR No Longer Kike Laxative Route: AR, Drug Active 2011 [facility] form: SUPP, ONCE, Start date: 09/14/11 17:15:00, Stop date: 09/14/11 17:15:00 Dulcolax 20 mg, 2 supp, AR No Longer Kike Laxative Route: AR, Drug Active 2011 [facility] form: SUPP, Q48H, PRN Constipation, Start date: 09/14/11 16:56:00, Duration: 30 day, Stop date: 10/14/11 16:55:00 Trandate 5 mg, 1 mL, IV No Longer Retz Route: IV, Drug Active 2011 [facility] form: INJ, ONCE, Start date: 09/14/11 15:00:00, Stop date: 09/14/11 15:00:00 vancomycin 1 gm, Route: IVPB No Longer Shanekai IVPB, ONCE, Active 2011 [facility] Start date: 09/14/11 11:30:00, Stop date: 09/14/11 11:30:00 Xopenex 0.63 mg, 3 mL, NEB No Longer Retz Route: NEB Active 2011 [facility] Drug form: SOLN, RQ4H, Start date: 09/14/11 11:00:00, Duration: 30 day, Stop date: 10/14/11 7:00:00 ipratropium 0.5 mg, 2.5 mL, NEB No Longer Retz 0.02% Route: NEB Active 2011 [facility] inhalation Drug form: solution SOLN, RQ4H, Start date: 09/14/11 11:00:00, Duration: 30 day, Stop date: 10/14/11 7:00:00 Trandate 5 mg, 1 mL, IV No Longer Retz Route: IV, Drug Active 2011 [facility] form: INJ, ONCE, Start date: 09/14/11 10:00:00, Stop date: 09/14/11 10:00:00 AMIODarone 900 482 mL, Rate: IV No Longer Retz mg + Dextrose TITRATE, Route: Active 2011 [facility] 5% in Water IV IV, Dosing 482 mL Weight 117.8 kg, Total Volume: 500, Start date: 09/14/11 9:55:00, Duration: 1 doses or times, Stop date: 09/15/11 9:54:00 potassium 20 mEq, 100 mL, IVPB No Longer Retz chloride Route: IVPB, Active 2011 [facility] Drug form: INJ, ONCE, Start date: 09/14/11 9:30:00, Stop date: 09/14/11 9:30:00 Cordarone 150 mg, 3 mL, IVPB No Longer Retz Route: IVPB, Active 2011 [facility] Drug form: INJ, ONCE, Start date: 09/14/11 9:13:00, Stop date: 09/14/11 9:13:00 Cardizem 10 mg, 2 mL, IV No Longer Retz Route: IV, Drug Active 2011 [facility] form: INJ, ONCE, Start date: 09/14/11 9:12:00, Stop date: 09/14/11 9:12:00 Cardizem 10 mg, 2 mL, IV No Longer Retz Route: IV, Drug Active 2011 [facility] form: INJ, ONCE, Start date: 09/14/11 9:09:00, Stop date: 09/14/11 9:09:00 diltiazem 100 100 mL, Rate: IV No Longer Retz mg + Sodium TITRATE, Route: Active 2011 [facility] Chloride 0.9% IV, Dosing IV 100 mL Weight 117.8 kg, Total Volume: 100, Start date: 09/14/11 9:09:00, Duration: 30 day, Stop date: 10/14/11 9:08:00 Lanoxin 0.5 mg, 2 mL, IV No Longer Retz Route: IV, Drug Active 2011 [facility] form: INJ, ONCE, Start date: 09/14/11 9:08:00, Stop date: 09/14/11 9:08:00 parenteral 1,680 mL, Rate: IV No Longer Deridder nutrition 70 ml/hr, Active 2011 [facility] solution Infuse over: 24 w/electrolytes hr, Route: IV, 1,680 mL Dosing Weight 117.8 kg, Total Volume: 1,680, Start date: 09/13/11 21:00:00, Duration: 30 day, Stop date: 10/13/11 20:59:00 Reglan 10 mg, 10 mL, NG No Longer Deridder Route: NG, Drug Active 2011 [facility] form: SYRP, Q8H, Start date: 09/13/11 17:15:00, Duration: 30 day, Stop date: 10/13/11 16:00:00 vancomycin 1 gm, Route: IVPB No Longer Deridder IVPB, ONCALL, [facility] 2011 [facility] Start date: 09/13/11 17:00:00, Stop date: 09/13/11 23:00:00 phytonadione 10 mg, 1 mL, IVPB No Longer Deridder Route: IVPB, 2011 [facility] Drug form: INJ, ONCE, Start date: 09/13/11 17:00:00, Stop date: 09/13/11 17:00:00 calcium 1,000 mg, 10 IV No Longer Deridder chloride mL, Route: IV, 2011 [facility] Drug form: INJ, ONCE, Start date: 09/12/11 22:00:00, Stop date: 09/12/11 22:00:00 albumin human 25 gm, 100 mL, IV No Longer Deridder Route: IV, Drug 2011 [facility] form: INJ, Q12H, Start date: 09/12/11 20:00:00, Stop date: 09/15/11 0:00:00 Sodium Chloride 250 mL, Route: IVPB No Longer Deridder 0.9% IV IVPB, Start 2011 [facility] date: 09/12/11 18:05:00, Duration: 30 day, Stop date: 10/12/11 18:04:00, PRN Line Flush BD Normal 10 mL, Route: IVP No Longer Deridder Saline Flush IVP, Drug Form: 2011 [facility] INJ, PRN, PRN Line Flush, Start date: 09/12/11 18:05:00, Duration: 30 day, Stop date: 10/12/11 18:04:00 calcium 1,000 mg, 10 IV No Longer Deridder gluconate mL, Route: IV, Active 2011 [facility] Drug form: INJ, ONCE, Start date: 09/12/11 11:00:00, Stop date: 09/12/11 11:00:00 DuoNeb 3 mL, Route: NEB No Longer Deridder inhalation NEB, Drug Form: Active 2011 [facility] solution SOLN, RQ4H, Start date: 09/12/11 11:00:00, Duration: 30 day, Stop date: 10/12/11 7:00:00 Diflucan 200 mg, 100 mL, IVPB No Longer Deridder Route: IVPB, Active 2011 [facility] Drug form: INJ, [id number], Start date: 09/12/11 11:00:00, Duration: 3 day, Stop date: 09/14/11 11:00:00 magnesium 50 mL, Rate: 25 IVPB No Longer Deridder sulfate ml/hr, Infuse Active 2011 [facility] over: 2 hr, Route: IVPB, Total Volume: 50, Start date: 09/12/11 11:00:00, Stop date: 09/12/11 11:00:00 calcium 1,000 mg, 10 IVPB No Longer [facility] gluconate mL, Route: Active 2011 [facility] IVPB, ONCE, Start date: 09/12/11 7:00:00, Stop date: 09/12/11 7:00:00 chlorhexidine 15 mL, Route: S&SPIT No Longer [facility] topical 0.12% S&SPIT, Q6H, Active 2011 [facility] liquid Drug form: LIQ, Start date: 09/12/11 6:00:00, Duration: 30 day, Stop date: 10/12/11 0:00:00 fentanyl 0.6 mg IV, Start date: IV No Longer Deridder 09/11/ 09/12/11 Active 2011 [facility] 0:54:00, Duration: 30, 30 ml glucagon 1 mg, Route: IV No Longer [facility] IV, Drug form: Active 2011 [facility] PDR/INJ, PRN, PRN Blood Glucose Results, Start date: 09/12/11 0:19:00, Duration: 30 day, Stop date: 10/12/11 0:18:00 Dextrose 50% in 50 mL, Route: IVP No Longer [place] IV IVP, Start Active 2011 [facility] date: 09/12/11 0:19:00, Duration: 30 day, Stop date: 10/12/11 0:18:00, PRN Blood Glucose Results NovoLog FlexPen 6 unit, 0.06 SUB-Q No Longer [facility] mL, Route: Active 2011 [facility] SUB-Q, Drug form: SOLN, Sliding Scale, PRN Blood Glucose Results, Start date: 09/12/11 0:19:00, Stop date: 10/12/11 0:18:00 Sodium Chloride 1,000 mL, Rate: IV No Longer Deridder 0.9% IV 1,000 100 ml/hr, Active 2011 [facility] mL Infuse over: 10 hr, Route: IV, Dosing Weight 117.8 kg, Total Volume: 1,000, Start date: 09/11/11 23:33:00, Stop date: 09/13/11 20:59:00 Sodium Chloride 1,000 mL, Rate: IV No Longer Deridder 09/11/ 0.9% IV 1,000 100 ml/hr, Active 2011 [facility] mL Infuse over: 10 hr, Route: IV, Dosing Weight 117.8 kg, Total Volume: 1,000, Start date: 09/11/11 20:19:00, Duration: 30 day, Stop date: 10/11/11 20:18:00 Sublimaze 50 microgram, 1 IV No Longer Deridder mL, Route: IV, Active 2011 [facility] Drug form: INJ, ONCE, Start date: 09/11/11 17:41:00, Stop date: 09/11/11 17:41:00 Lasix 80 mg, 8 mL, IV No Longer Deridder Route: IV, Drug Active 2011 [facility] form: INJ, ONCE, Start date: 09/11/11 17:14:00, Stop date: 09/11/11 17:14:00 albumin human 25 gm, 100 mL, IV No Longer Retz Route: IV, Drug Active 2011 [facility] form: INJ, ONCE, Start date: 09/11/11 16:46:00, Stop date: 09/11/11 16:46:00 Lasix 20 mg, 2 mL, IV No Longer Retz Route: IV, Drug Active 2011 [facility] form: INJ, ONCE, Start date: 09/11/11 16:38:00, Stop date: 09/11/11 16:38:00 Sublimaze 50 microgram, 1 IV No Longer Stokes mL, Route: IV, Active 2011 [facility] Drug form: INJ, ONCE, Start date: 09/11/11 15:04:00, Stop date: 09/11/11 15:04:00 sodium 100 mEq, 100 IV No Longer Deridder bicarbonate mL, Route: IV, Active 2011 [facility] 8.4% Drug Form: INJ, ONCE, Start date: 09/11/11 14:00:00, Stop date: 09/11/11 14:00:00 cefazolin 1 gm, Route: IVPB No Longer Deridder IVPB, [id number], Active 2011 [facility] Start date: 09/11/11 10:00:00, Duration: 30 day, Stop date: 10/11/11 2:00:00 calcium 2,000 mg, 20 IV No Longer Retz gluconate mL, Route: IV, Active 2011 [facility] ONCE, Start date: 09/11/11 10:00:00, Stop date: 09/11/11 10:00:00 albumin human 25 gm, 500 mL, IV No Longer Stokes Route: IV, Drug Active 2011 [facility] form: INJ, ONCE, Start date: 09/11/11 9:40:00, Stop date: 09/11/11 9:40:00 Haldol 5 mg, 1 mL, IV No Longer Retz Route: IV, Drug Active 2011 [facility] form: INJ, Q4H, PRN Agitation, Start date: 09/11/11 9:39:00, Duration: 30 day, Stop date: 10/11/11 9:38:00 Sodium Chloride 1,000 mL, Rate: IV No Longer Retz 0.9% IV 1,000 100 ml/hr, Active 2011 [facility] mL Infuse over: 10 hr, Route: IV, Dosing Weight 117.8 kg, Total Volume: 1,000, Start date: 09/11/11 9:38:00, Stop date: 10/11/11 9:37:00 Pepcid 20 mg, 2 mL, IVP No Longer Deridder Route: IVP, 2011 [facility] Drug form: INJ, Daily, Start date: 09/11/11 9:00:00, Duration: 30 day, Stop date: 10/10/11 9:00:00 Merrem 500 mg, Route: IVPB No Longer Shaneka IVPB, ABXQ8H, Active 2011 [facility] Start date: 09/11/11 6:00:00, Duration: 1 day, Stop date: 09/17/11 6:00:00 albumin human 12.5 gm, 250 IV No Longer Deridder mL, Route: IV, 2011 [facility] Drug form: INJ, ONCE, Start date: 09/11/11 5:32:00, Stop date: 09/11/11 5:32:00 vancomycin 1 gm, Route: IVPB No Longer Shaneka IVPB, ONCE, [facility] 2011 [facility] Start date: 09/11/11 5:30:00, Stop date: 09/11/11 5:30:00 hetastarch 6% IV, Start date: IV No Longer Deridder in NS 500 mL 09/11/11 [facility] 2011 [facility] 5:30:00, Duration: 1, 500 ml Lasix 20 mg, 2 mL, IV No Longer Deridder Route: IV, Drug 2011 [facility] form: INJ, ONCE, Start date: 09/10/11 21:09:00, Stop date: 09/10/11 21:09:00 hydromorphone 6 30 mL, Rate: IV No Longer bAby mg asdir, Route: Active 2011 [facility] IV, Dosing Weight 117.8 kg, Total Volume: 30, Start date: 09/10/11 20:50:00, Duration: 30 day, Stop date: 10/10/11 20:49:00 Dextrose 5% 1,000 mL, Rate: IV No Longer Stokes with 0.45% NaCl 250 ml/hr, Active 2011 [facility] IV 1,000 mL Infuse over: 4 hr, Route: IV, Dosing Weight 117.8 kg, Total Volume: 1,000, Start date: 09/10/11 18:00:00, Stop date: 10/10/11 17:59:00 Protonix 40 mg, Route: IVP No Longer Stokes IVP, Drug form: Active 2011 [facility] INJ, Before Dinner, Start date: 09/10/11 16:30:00, Duration: 30 day, Stop date: 10/09/11 16:30:00 Sodium Chloride IV, 500 ml/hr, IV No Longer Deridder 0.9% IV ONCALL, Start Active 2011 [facility] date: 09/10/11 15:00:00, Duration: 30, 500 ml hetastarch 6% 500 mL, 500 IV No Longer Deridder in NS ml/hr, Route: Active 2011 [facility] IV, Drug Form: INJ, ONCE, Start date: 09/10/11 14:00:00, Stop date: 09/10/11 14:00:00 Ativan 1 mg, 0.5 mL, IV No Longer Abby Route: IV, Drug Active 2011 [facility] form: INJ, Q6H, PRN Anxiety, Start date: 09/10/11 11:49:00, Duration: 30 day, Stop date: 10/10/11 11:48:00 Lopressor 25 mg, 1 tab, PO No Longer Deridder Route: PO, Drug Active 2011 [facility] form: TAB, Daily, Start date: 09/10/11 9:00:00, Duration: 30 day, Stop date: 10/09/11 9:00:00 Lovenox 40 mg, 0.4 mL, SUB-Q No Longer Deridder Route: SUB-Q, Active 2011 [facility] Drug form: INJ, Daily, Start date: 09/10/11 9:00:00, Duration: 30 day, Stop date: 10/09/11 9:00:00 Zofran 4 mg, 2 mL, IVP No Longer Stokes Route: IVP, Active 2011 [facility] Drug form: INJ, Q4H, PRN Nausea, Start date: 09/10/11 1:40:00, Duration: 30 day, Stop date: 10/10/11 1:39:00 influenza virus 0.5 mL, Route: No Longer SYSTEM vaccine, IM, Drug Form: [facility] 2011 [facility] inactivated INJ, ONCALL, Start date: 09/09/11 20:52:24, Stop date: 10/09/11 20:47:24Same as: Fluarix Contains 15 mcg of influenza virus antigen from each of 3 viruses H1N1, H3N2, and 3,11 cefazolin 2 gm, 100 mL, IVPB No Longer Stokes Route: IVPB, 2011 [facility] Drug form: INJ, [id number], Start date: 09/09/11 20:00:00, Stop date: 09/10/11 16:10:00 morphine IV, Start date: IV No Longer Deridder Sulfate 30 mg 09/09/112011 [facility] 19:06:00, 30 ml Dextrose 5% 1,000 mL, Rate: IV No Longer Deridder with 0.45% NaCl 250 ml/hr, 2011 [facility] IV 1,000 mL Infuse over: 4 hr, Route: IV, Dosing Weight 117.8 kg, Total Volume: 1,000, Start date: 09/09/11 19:03:00, Duration: 4 hr, Stop date: 09/10/11 17:58:00 Phenergan 12.5 mg, Route: IM No Longer Iggy IM, ONCE, Start 2011 [facility] date: 09/09/11 17:07:00, Stop date: 09/09/11 17:07:00 hydromorphone 0.1 mg, Route: IV No Longer Nemitz IV, ONCE, Start 2011 [facility] date: 09/09/11 16:58:00, Stop date: 09/09/11 16:58:00 Zofran 4 mg, Route: IV No Longer Nemitz IV, ONCE, Start 2011 [facility] date: 09/09/11 16:56:00, Stop date: 09/09/11 16:56:00 hydromorphone 0.2 mg, Route: IV No Longer Nemitz IV, ONCE, Start Active 2011 [facility] date: 09/09/11 16:55:00, Stop date: 09/09/11 16:55:00 Allergies, Adverse Reactions, Alerts Substance Category Reaction Severity Reaction Status Date Comments Source type Reported Adhesive propensity Adverse Tape to adverse Reaction [facility] reactions to substance Demerol HCl drug allergy Allergy Active [facility] NKFA drug allergy Allergy Active [facility] Immunizations Immunization Date Site Status Last Updated Comments Source Given pneumococcal [facility] influenza virus completed [facility] vaccine, 4 inactivated pneumococcal Right completed [facility] Left completed [facility] vaccine, 4 [facility] inactivated influenza virus Not Given [facility] vaccine, 2 inactivated Results Order Name Results Value Reference Date Interpretation Comments Source Range ELECTROLYT AGAP 11.0 meq/L 10.0 - 01/03 ES 20.0 [facility] ELECTROLYT eGFR 57 01/03 Result Comment: The eGFR is calculated using the CKD-EPI formula. In most young, healthy individuals the eGFR will be >90 mL/ min/1.73m2. The eGFR declines with age. An eGFR of 60-89 may be normal in [facility] mL/min/1.7 some populations, particularly the elderly, for whom the CKD-EPI formula has not been extensively validated. Use of the eGFR is not recommended in the following populations: [address] Individuals with unstable creatinine concentrations, including [...] mg/dL 0.50 - 01/03 ES Lvl 1.40 [facility] ELECTROLYT Glucose Lvl 115 mg/dL 70 - 99 01/03 ES [facility] ELECTROLYT Chloride Lvl 108 meq/L 95 - 109 01/03 ES [facility] ELECTROLYT Potassium 4.0 meq/L 3.5 - 5.1 01/03 ES Lvl /2016 [facility] ELECTROLYT Calcium Lvl 7.4 mg/dL 8.5 - 10.5 01/03 ES /2015 [facility] ELECTROLYT CO2 30 meq/L 24 - 32 01/03 ES [facility] ELECTROLYT Sodium Lvl 145 meq/L 135 - 145 01/03 ES [facility] ELECTROLYT BUN 18 mg/dL 7 - 22 01/03 ES /2015 [facility] HEMATOLOGY Eosinophils 0.4 K/CMM 0.0 - 0.5 / MH # /2016 [facility] HEMATOLOGY Basophils # 0.0 K/CMM 0.0 - 0.2 01/03 [facility] HEMATOLOGY Basophils 0.4 % 0.0 - 1.0 01/03 [facility] HEMATOLOGY Eosinophils 5.6 % 0.0 - 4.0 01/03 [facility] HEMATOLOGY Monocytes # 0.7 K/CMM 0.0 - 0.8 01/03 [facility] HEMATOLOGY Lymphocytes 2.4 K/CMM 1.0 - 5.5 01/03 # /2015 [facility] HEMATOLOGY Segs 45.0 % 45.0 - 01/03 75.0 [facility] HEMATOLOGY Segs-Bands # 2.9 K/CMM 1.5 - 8.1 01/03 [facility] HEMATOLOGY Lymphocytes 38.3 % 20.0 - 01/03 40.0 [facility] HEMATOLOGY Monocytes 10.7 % 2.0 - 12.0 01/03 [facility] HEMATOLOGY RBC Morph Normal 01/03 [facility] (01/04/16 3:05 AM) [facility] HEMATOLOGY Plt Morph Normal 01/03 [facility] (01/04/16 3:05 AM) [facility] HEMATOLOGY RDW 14.9 % 11.5 - 01/03 14.5 [facility] HEMATOLOGY Platelet 124 K/CMM 133 - 450 01/03 [facility] HEMATOLOGY MCH 30.4 pg 27.0 - 01/03 31.0 [facility] HEMATOLOGY MCHC 33.4 g/dL 32.0 - 01/03 36.0 [facility] HEMATOLOGY MPV 9.5 fL 7.4 - 10.4 01/03 [facility] HEMATOLOGY WBC 6.3 K/CMM 3.7 - 10.4 01/03 [facility] HEMATOLOGY Hgb 12.3 g/dL 12.0 - 01/03 16.0 /2015 [facility] HEMATOLOGY Hct 36.7 % 36.0 - 01/03 48.0 /2016 [facility] HEMATOLOGY RBC 4.03 M/CMM 4.20 - 01/03 5.40 /2015 [facility] HEMATOLOGY MCV 91.0 fL 80.0 - 01/03 98.0 /2015 [facility] Abdomen 2 Abdomen 2 EXAM: Abdomen 2 views DX 01/03 - views DX views [facility] HISTORY: Abdominal distension [facility] COMPARISON: 01/03/2016 Read by: Tuan Roberts MD [...] Small Small bowel Clinical history: Constipation. 01/02 [facility] bowel series DX - [facility] series DX Sex: Female. [facility] : 1950. Read by: Lex Gallo [...] PICC Line Placement. 01/02 - 1view DX [facility] : 1950. Read by: Lex Gallo [...] BUN 22 mg/dL 7 - 22 01/02 [facility] CHEM PANEL Calcium Lvl 8.3 mg/dL 8.5 - 10.5 01/02 [facility] CHEM PANEL Chloride Lvl 102 meq/L 95 - 109 01/02 [facility] CHEM PANEL Potassium 4.3 meq/L 3.5 - 5.1 01/02 Lvl [facility] CHEM PANEL Sodium Lvl 142 meq/L 135 - 145 01/02 [facility] CHEM PANEL Total 6.3 g/dL 6.4 - 8.4 01/02 [facility] CHEM PANEL Alk Phos 56 unit/L 39 - 136 01/02 [facility] CHEM PANEL Bili Total 1.0 mg/dL 0.2 - 1.3 01/02 [facility] CHEM PANEL eGFR 44 01/02 Result Comment: [...] is not recommended in the following populations: [address] Individuals with unstable creatinine concentrations, including [...] Lvl 124 mg/dL 70 - 99 01/02 [facility] CHEM PANEL Creatinine 1.29 mg/dL 0.50 - 01/02 Lvl 1.40 [facility] CHEM PANEL Albumin Lvl 3.5 g/dL 3.5 - 5.0 01/02 [facility] CHEM PANEL CO2 30 meq/L 24 - 32 08 [facility] CHEM PANEL ALT 124 unit/L 0 - 65 01/02 [facility] CHEM PANEL AST 148 unit/L 0 - 37 01/02 [facility] CHEM PANEL Globulin 2.8 g/dL 2.7 - 4.2 08 [facility] CHEM PANEL A/G Ratio 1.2 0.7 - 1.6 01/02 [facility] CHEM PANEL B/C Ratio 17 6 - 25 01/02 [facility] CHEM PANEL AGAP 14.3 meq/L 10.0 - 08 MH 20.0 [facility] HEMATOLOGY Basophils # 0.0 K/CMM 0.0 - 0.2 01/02 [facility] HEMATOLOGY Segs 76.1 % 45.0 - 01/02 MH 75.0 [facility] HEMATOLOGY Lymphocytes 1.4 K/CMM 1.0 - 5.5 01/02 [facility] HEMATOLOGY Segs-Bands # 8.3 K/CMM 1.5 - 8.1 01/02 [facility] HEMATOLOGY Basophils 0.2 % 0.0 - 1.0 01/02 [facility] HEMATOLOGY Eosinophils 0.3 K/CMM 0.0 - 0.5 01/02 [facility] HEMATOLOGY Monocytes # 0.9 K/CMM 0.0 - 0.8 01/02 [facility] HEMATOLOGY Eosinophils 2.4 % 0.0 - 4.0 01/02 [facility] HEMATOLOGY Monocytes 8.3 % 2.0 - 12.0 01/02 [facility] HEMATOLOGY Lymphocytes 13.0 % 20.0 - 01/02 MH 40.0 /2015 [facility] HEMATOLOGY INR 1.03 0.85 - 01/02 MH 1.17 [facility] HEMATOLOGY PTT 30.7 s 22.9 - 01/02 MH 35.8 [facility] HEMATOLOGY PT 13.8 s 12.0 - 01/02 MH 14.7 [facility] HEMATOLOGY MPV 9.0 fL 7.4 - 10.4 08 [facility] HEMATOLOGY Platelet 148 K/CMM 133 - 450 08 [facility] HEMATOLOGY WBC 10.9 K/CMM 3.7 - 10.4 08 /2015 [facility] HEMATOLOGY Hgb 13.6 g/dL 12.0 - 01/02 16.0 /2015 [facility] HEMATOLOGY RBC 4.44 M/CMM 4.20 - 01/02 5.40 /2015 [facility] HEMATOLOGY RDW 14.3 % 11.5 - 01/02 14.5 /2015 [facility] HEMATOLOGY MCHC 33.8 g/dL 32.0 - 01/02 36.0 /2015 [facility] HEMATOLOGY MCH 30.6 pg 27.0 - 01/02 MH 31.0 /2015 [facility] HEMATOLOGY Hct 40.2 % 36.0 - 01/02 MH 48.0 /2015 [facility] HEMATOLOGY MCV 90.6 fL 80.0 - 01/02 98.0 [facility] URINE AND UA Mucus Few /LPF None Seen 01/02 MH STOOL /LPF /2015 [facility] URINE AND UA Hyal Cast 15 /LPF 0 - 2 01/02 [facility] URINE AND UA Color Nimco 01/02 STOOL [facility] URINE AND UA RBC 2 /HPF 0 - 2 01/02 STOOL [facility] URINE AND UA WBC 2 /HPF 0 - 5 01/02 [facility] URINE AND UA Sq Epi Many /LPF Few /LPF 01/02 STOOL [facility] URINE AND UA Bacteria Occasional None Seen 01/02 STOOL /HPF /HPF /2015 [facility] URINE AND UA Leuk Est Negative Negative 01/02 [facility] (01/03/16 3:42 AM) [facility] URINE AND UA <=1.0 0.1 - 1.0 01/02 STOOL Urobilinogen mg/dL [facility] URINE AND UA Ketones Negative 01/02 [facility] URINE AND UA Bili Negative Negative 01/02 STOOL [facility] *NA* [facility] (01/03/16 3:42 AM) URINE AND UA Glucose Negative Negative 01/02 STOOL mg/dL mg/dL [facility] URINE AND UA Blood Negative Negative 01/02 STOOL [facility] (01/03/16 3:42 AM) [facility] URINE AND UA Nitrite Negative Negative 01/02 STOOL [facility] (01/03/16 3:42 AM) [facility] URINE AND UA pH 5.0 5.0 - 8.0 01/02 [facility] URINE AND UA Protein Negative Negative 01/02 STOOL mg/dL mg/dL /2015 [facility] URINE AND UA Turbidity Marked Clear 01/02 STOOL [facility] *ABN* [facility] (01/03/16 3:42 AM) URINE AND UA Spec Grav 1.026 <=1.030 01/02 STOOL [facility] Abdomen 2 Abdomen 2 CLINICAL HISTORY:Vomiting. 01/02 - views DX views DX - [facility] :1950. [facility] Sex:Female. Read by: Lex Gallo MD Dictated [...] Ratio 0.9 0.7 - 1.6 06/18 Normal [facility] CHEMISTRY Globulin 3.2 g/dL 2.0 - 4.0 06/18 Normal [facility] CHEMISTRY B/C Ratio 13 6 - 25 06/18 Normal [facility] CHEMISTRY AGAP 12.6 meq/L 10.0 - 06/18 Normal 20.0 [facility] CHEMISTRY eGFR 69 06/18 1Result Comment: The [...] is not recommended in the following populations: [facility] 3m2 Individuals with unstable creatinine concentrations, including [...] values reflect the clinical guidelines of the [employer]. [facility] CHEMISTRY Alk Phos 73 unit/L 39 - 136 06/18 Normal [facility] CHEMISTRY Albumin Lvl 2.9 g/dL 3.5 - 5.0 06/18 LOW [facility] CHEMISTRY Bili Total 0.3 mg/dL 0.2 - 1.3 06/18 Normal [facility] CHEMISTRY Calcium Lvl 8.2 mg/dL 8.5 - 10.5 06/18 LOW [facility] CHEMISTRY Chloride Lvl 110 meq/L 95 - 109 06/18 HI [facility] CHEMISTRY Potassium 3.6 meq/L 3.5 - 5.1 06/18 Normal Lv [facility] CHEMISTRY CO2 25 meq/L 24 - 32 06/18 Normal [facility] CHEMISTRY Sodium Lvl 144 meq/L 135 - 145 06/18 Normal [facility] CHEMISTRY ALANINE 21 unit/L 0 - 65 06/18 Normal AMINOTRANS [facility] RAS CHEMISTRY Creatinine 0.9 mg/dL 0.5 - 1.4 06/18 Normal l [facility] CHEMISTRY BUN 12 mg/dL 7 - 22 06/18 Normal [facility] CHEMISTRY ASPARTATE 12 unit/L 0 - 37 06/18 Normal TRANSAMINASE [facility] CHEMISTRY Total 6.1 g/dL 6.4 - 8.4 06/18 LOW Protein [facility] HEMATOLOGY Monocytes 7.7 % 2.0 - 12.0 06/18 Normal [facility] HEMATOLOGY Lymphocytes 33.5 % 20.0 - 06/18 Normal MH 40.0 [facility] HEMATOLOGY Basophils 1.3 % 0.0 - 1.0 06/18 HI [facility] HEMATOLOGY Segs-Bands # 2.9 K/CMM 1.5 - 8.1 06/18 Normal [facility] HEMATOLOGY Eosinophils 10.4 % 0.0 - 4.0 06/18 HI [facility] HEMATOLOGY Monocytes # 0.5 K/CMM 0.0 - 0.8 06/18 Normal [facility] HEMATOLOGY Lymphocytes 2.0 K/CMM 1.0 - 5.5 06/18 Normal MH # [facility] HEMATOLOGY Eosinophils 0.6 K/CMM 0.0 - 0.5 06/18 HI MH # /2014 [facility] HEMATOLOGY Basophils # 0.1 K/CMM 0.0 - 0.2 06/18 Normal /2013 [facility] HEMATOLOGY Segs 47.1 % 45.0 - 06/18 Normal 75.0 /2013 [facility] HEMATOLOGY MCV 86.0 fL 81.0 - 06/18 Normal 99.0 /2013 [facility] HEMATOLOGY Hgb 9.6 g/dL 12.0 - 06/18 LOW 16.0 /2013 [facility] HEMATOLOGY Hct 28.9 % 36.0 - 06/18 LOW 48.0 /2013 [facility] HEMATOLOGY MCH 28.8 pg 27.0 - 06/18 Normal 31.0 /2013 [facility] HEMATOLOGY MCHC 33.5 g/dL 32.0 - 06/18 Normal 36.0 /2013 [facility] HEMATOLOGY WBC X 10x3 6.1 K/CMM 3.7 - 10.4 06/18 Normal [facility] HEMATOLOGY RBC X 10x6 3.36 M/CMM 4.20 - 06/18 LOW 5.40 /2013 [facility] HEMATOLOGY MPV 9.6 fL 7.4 - 10.4 06/18 Normal [facility] HEMATOLOGY RDW 16.4 % 11.5 - 06/18 HI 14.5 /2013 [facility] HEMATOLOGY Platelet 221 K/CMM 133 - 450 06/18 Normal [facility] HEMATOLOGY Sed Rate 70 mm/h 0 - 20 06/18 HI [facility] CHEMISTRY Vanco Tr 11.2 ug/ml 06/15 5Interpretive Data: Therapeutic Range: Trough: 10 - 20 ug/mL [facility] Peak: 20 - 40 ug/mL Potential Toxicity: >80 ug/mL CHEMISTRY Vanco Tr TND 0130 06/15 [facility] URINALYSIS UA null 0.1 - 1.0 06/14 Urobilinogen /2013 [facility] URINALYSIS UA Hyal Cast 2 /LPF 0 - 2 06/14 Normal [facility] URINALYSIS UA Bacteria Occasional None Seen 06/14 /HPF [facility] URINALYSIS UA RBC 7 /HPF 0 - 2 06/14 HI [facility] URINALYSIS UA Mucus Few /LPF None Seen 06/14 [facility] URINALYSIS UA Leuk Est Negative Negative 06/14 Normal [facility] (06/14/2013 09:45:34) URINALYSIS UA Sq Epi Few /LPF Few 06/14 [facility] URINALYSIS UA WBC 4 /HPF 0 - 5 06/14 Normal [facility] URINALYSIS UA Bili Negative Negative 06/14 [facility] *NA* (06/14/2013 09:45:34) URINALYSIS UA Blood Negative Negative 06/14 Normal [facility] (06/14/2013 09:45:34) URINALYSIS UA Nitrite Negative Negative 06/14 Normal [facility] (06/14/2013 09:45:34) URINALYSIS UA Protein 20 mg/dL Negative 06/14 ABN [facility] URINALYSIS UA Glucose Negative Negative 06/14 mg/dL [facility] URINALYSIS UA Ketones Negative Negative 06/14 mg/dL [facility] URINALYSIS UA pH 5.5 5.0 - 8.0 06/14 Normal [facility] URINALYSIS UA Spec Grav 1.009 <=1.030 06/14 Normal [facility] URINALYSIS UA Turbidity Clear Clear 06/14 Normal [facility] (06/14/2013 09:45:34) URINALYSIS UA Color Light Yellow Yellow 06/14 [facility] *NA* (06/14/2013 09:45:34) CHEMISTRY AGAP 15.0 meq/L 10.0 - 06/14 Normal 20.0 [facility] CHEMISTRY Globulin 3.4 g/dL 2.0 - 4.0 06/14 Normal [facility] CHEMISTRY B/C Ratio 13 6 - 25 06/14 Normal [facility] CHEMISTRY A/G Ratio 0.8 0.7 - 1.6 06/14 Normal [facility] CHEMISTRY eGFR 69 06/14 2Result Comment: The [...] is not recommended in the following populations: [facility] 3m2 Individuals with unstable creatinine concentrations, including [...] g/dL 3.5 - 5.0 06/14 LOW MH [facility] CHEMISTRY Glucose Lvl 97 mg/dL 70 - 99 06/14 Normal 4Interpretive Data: Adult reference range values reflect the clinical guidelines of the [employer]. [facility] CHEMISTRY Creatinine 0.9 mg/dL 0.5 - 1.4 06/14 Normal Lvl [facility] CHEMISTRY Alk Phos 78 unit/L 39 - 136 06/14 Normal [facility] CHEMISTRY BUN 12 mg/dL 7 - 22 06/14 Normal [facility] CHEMISTRY Potassium 4.0 meq/L 3.5 - 5.1 06/14 Normal Lvl [facility] CHEMISTRY Chloride Lvl 107 meq/L 95 - 109 06/14 Normal [facility] CHEMISTRY CO2 24 meq/L 24 - 32 06/14 Normal [facility] CHEMISTRY Calcium Lvl 8.2 mg/dL 8.5 - 10.5 06/14 LOW MH [facility] CHEMISTRY Sodium Lvl 142 meq/L 135 - 145 06/14 Normal [facility] CHEMISTRY Bili Total 0.3 mg/dL 0.2 - 1.3 06/14 Normal [facility] CHEMISTRY Total 6.1 g/dL 6.4 - 8.4 06/14 LOW Protein [facility] CHEMISTRY ASPARTATE 17 unit/L 0 - 37 06/14 Normal TRANSAMINASE [facility] CHEMISTRY ALANINE 17 unit/L 0 - 65 06/14 Normal AMINOTRANSFE [facility] RAS HEMATOLOGY Lymphocytes 1.6 K/CMM 1.0 - 5.5 06/14 Normal # [facility] HEMATOLOGY Monocytes # 0.6 K/CMM 0.0 - 0.8 06/14 Normal [facility] HEMATOLOGY Basophils 0.7 % 0.0 - 1.0 06/14 Normal [facility] HEMATOLOGY Eosinophils 0.6 K/CMM 0.0 - 0.5 06/14 HI MH # [facility] HEMATOLOGY Segs-Bands # 3.8 K/CMM 1.5 - 8.1 06/14 Normal [facility] HEMATOLOGY Basophils # 0.0 K/CMM 0.0 - 0.2 06/14 Normal MH /2013 [facility] HEMATOLOGY Eosinophils 9.1 % 0.0 - 4.0 06/14 HI MH /2013 [facility] HEMATOLOGY Monocytes 8.6 % 2.0 - 12.0 06/14 Normal MH /2013 [facility] HEMATOLOGY Segs 57.0 % 45.0 - 06/14 Normal MH 75.0 /2013 [facility] HEMATOLOGY Lymphocytes 24.6 % 20.0 - 06/14 Normal MH 40.0 [facility] HEMATOLOGY Hgb 9.6 g/dL 12.0 - 06/14 LOW MH 16.0 [facility] HEMATOLOGY RBC X 10x6 3.33 M/CMM 4.20 - 06/14 LOW MH 5.40 /2013 [facility] HEMATOLOGY Hct 28.5 % 36.0 - 06/14 LOW MH 48.0 /2013 [facility] HEMATOLOGY WBC X 10x3 6.6 K/CMM 3.7 - 10.4 06/14 Normal MH [facility] HEMATOLOGY MPV 9.8 fL 7.4 - 10.4 06/14 Normal [facility] Platelet 196 K/CMM 133 - 450 06/14 Normal MH [facility] HEMATOLOGY RDW 16.0 % 11.5 - 06/14 HI MH 14.5 [facility] HEMATOLOGY MCH 28.9 pg 27.0 - 06/14 Normal MH 31.0 [facility] HEMATOLOGY MCHC 33.8 g/dL 32.0 - 06/14 Normal MH 36.0 [facility] HEMATOLOGY MCV 85.6 fL 81.0 - 06/14 Normal MH 99.0 /2013 [facility] CHEMISTRY Calcium Lvl 8.2 mg/dL 8.5 - 10.5 06/12 LOW MH [facility] CHEMISTRY eGFR 69 06/12 4Result Comment: The [...] is not recommended in the following populations: [facility] 3m2 Individuals with unstable creatinine concentrations, including [...] 140 meq/L 135 - 145 06/12 Normal [facility] CHEMISTRY Potassium 4.0 meq/L 3.5 - 5.1 06/12 Normal [facility] CHEMISTRY BUN 14 mg/dL 7 - 22 06/12 Normal [facility] CHEMISTRY Creatinine 0.9 mg/dL 0.5 - 1.4 06/12 Normal [facility] CHEMISTRY CO2 28 meq/L 24 - 32 06/12 Normal [facility] CHEMISTRY Chloride Lvl 104 meq/L 95 - 109 06/12 Normal [facility] CHEMISTRY Glucose Lvl 82 mg/dL 70 - 99 06/12 Normal 7Interpretive Data: Adult reference range values reflect the clinical guidelines of the [employer]. [facility] CHEMISTRY AGAP 12.0 meq/L 10.0 - 06/12 Normal 20.0 [facility] HEMATOLOGY Polychrom Slight None Seen 06/12 Normal [facility] (06/12/2013 05:00:00) HEMATOLOGY Target Cell Slight None Seen 06/12 ABN [facility] *ABN* (06/12/2013 05:00:00) HEMATOLOGY Tear Cell Slight None Seen 06/12 ABN [facility] *ABN* (06/12/2013 05:00:00) HEMATOLOGY [place] Cell Slight None Seen 06/12 ABN [facility] *ABN* (06/12/2013 05:00:00) HEMATOLOGY Monocytes # 0.8 K/CMM 0.0 - 0.8 06/12 Normal [facility] HEMATOLOGY Eosinophils 0.5 K/CMM 0.0 - 0.5 06/12 Normal [facility] HEMATOLOGY Segs-Bands # 4.3 K/CMM 1.5 - 8.1 06/12 Normal [facility] HEMATOLOGY Lymphocytes 1.8 K/CMM 1.0 - 5.5 06/12 Normal [facility] HEMATOLOGY Segs 57.7 % 45.0 - 06/12 Normal 75.0 [facility] HEMATOLOGY Plt Morph Normal 06/12 Normal [facility] (06/12/2013 05:00:00) HEMATOLOGY Hypochrom Slight None Seen 06/12 Normal [facility] (06/12/2013 05:00:00) HEMATOLOGY Macrocyte 1+ None Seen 06/12 ABN MH /2013 [facility] *ABN* (06/12/2013 05:00:00) HEMATOLOGY Basophils # 0.1 K/CMM 0.0 - 0.2 06/12 Normal MH [facility] HEMATOLOGY Basophils 0.8 % 0.0 - 1.0 06/12 Normal [facility] HEMATOLOGY Eosinophils 6.6 % 0.0 - 4.0 06/12 HI MH [facility] HEMATOLOGY Lymphocytes 24.6 % 20.0 - 06/12 Normal 40.0 /2013 [facility] HEMATOLOGY Monocytes 10.3 % 2.0 - 12.0 06/12 Normal MH [facility] HEMATOLOGY WBC X 10x3 7.4 K/CMM 3.7 - 10.4 06/12 Normal [facility] HEMATOLOGY Hgb 9.4 g/dL 12.0 - 06/12 LOW 16.0 [facility] HEMATOLOGY RBC X 10x6 3.21 M/CMM 4.20 - 06/12 LOW 5.40 /2013 [facility] HEMATOLOGY MCH 29.3 pg 27.0 - 06/12 Normal 31.0 [facility] HEMATOLOGY MCV 87.7 fL 81.0 - 06/12 Normal 99.0 [facility] HEMATOLOGY Hct 28.2 % 36.0 - 06/12 LOW 48.0 [facility] HEMATOLOGY MPV 9.5 fL 7.4 - 10.4 06/12 Normal MH [facility] HEMATOLOGY RDW 15.5 % 11.5 - 06/12 HI 14.5 [facility] HEMATOLOGY MCHC 33.5 g/dL 32.0 - 06/12 Normal 36.0 /2013 [facility] HEMATOLOGY Platelet 192 K/CMM 133 - 450 06/12 Normal [facility] CHEMISTRY Magnesium 2.0 mg/dL 1.8 - 2.4 06/11 Normal Lvl [facility] CHEMISTRY Phosphorus 3.6 mg/dL 2.5 - 4.5 06/11 Normal [facility] BEDSIDE Glucose POC 103 mg/dL 70 - 99 06/11 HI 1Interpretive GLUCOSE Data: [facility] TESTING Upper Reportable Limit: 200 mg/dL. BEDSIDE Gluc POC Notified 06/11 GLUCOSE Comment 1 RN/MD /2013 [facility] TESTING BEDSIDE Glucose POC 108 mg/dL 70 - 99 06/10 HI 2Interpretive GLUCOSE Data: [facility] TESTING Upper Reportable Limit: 200 mg/dL. BEDSIDE Gluc POC Notified 06/10 GLUCOSE Comment 1 RN/ /2013 [facility] TESTING BEDSIDE Glucose POC 110 mg/dL 70 - 99 06/10 HI 3Interpretive GLUCOSE Data: [facility] TESTING Upper Reportable Limit: 200 mg/dL. CHEMISTRY Magnesium 2.1 mg/dL 1.8 - 2.4 06/10 Normal Lvl [facility] CHEMISTRY Phosphorus 3.5 mg/dL 2.5 - 4.5 06/10 Normal [facility] CHEMISTRY eGFR 80 06/10 5Result Comment: The [...] is not recommended in the following populations: [address] Individuals with unstable creatinine concentrations, including [...] 8.2 mg/dL 8.5 - 10.5 06/10 LOW [facility] CHEMISTRY AGAP 9.8 meq/L 10.0 - 06/10 LOW 20.0 [facility] CHEMISTRY CO2 31 meq/L 24 - 32 06/10 Normal [facility] CHEMISTRY Potassium 3.8 meq/L 3.5 - 5.1 06/10 Normal l [facility] CHEMISTRY Chloride Lvl 105 meq/L 95 - 109 06/10 Normal [facility] CHEMISTRY Creatinine 0.8 mg/dL 0.5 - 1.4 06/10 Normal l [facility] CHEMISTRY Sodium Lvl 142 meq/L 135 - 145 06/10 Normal [facility] CHEMISTRY BUN 18 mg/dL 7 - 22 06/10 Normal [facility] CHEMISTRY Glucose Lvl 113 mg/dL 70 - 99 06/10 HI 8Interpretive Data: Adult reference range values reflect the clinical guidelines of the [employer]. [facility] BEDSIDE Gluc POC Notified 06/10 GLUCOSE Comment 1 RN/ /2013 [facility] TESTING CHEMISTRY Phosphorus 3.3 mg/dL 2.5 - 4.5 06/09 Normal [facility] CHEMISTRY Calcium Lvl 7.9 mg/dL 8.5 - 10.5 06/09 LOW [facility] CHEMISTRY CO2 30 meq/L 24 - 32 06/09 Normal [facility] CHEMISTRY AGAP 12.5 meq/L 10.0 - 06/09 Normal 20. [facility] CHEMISTRY eGFR 69 06/09 6Result Comment: The [...] is not recommended in the following populations: [facility] 3m2 Individuals with unstable creatinine concentrations, including [...] values reflect the clinical guidelines of the [employer]. [facility] CHEMISTRY BUN 17 mg/dL 7 - 22 06/09 Normal [facility] CHEMISTRY Sodium Lvl 140 meq/L 135 - 145 06/09 Normal [facility] CHEMISTRY Creatinine 0.9 mg/dL 0.5 - 1.4 06/09 Normal Lv [facility] CHEMISTRY Chloride Lvl 101 meq/L 95 - 109 06/09 Normal [facility] CHEMISTRY Potassium 3.5 meq/L 3.5 - 5.1 06/09 Normal Lv [facility] CHEMISTRY Magnesium 2.0 mg/dL 1.8 - 2.4 06/09 Normal Lvl [facility] IMMUNOLOGY Prealbumin 7.8 mg/dL 18.0 - 06/09 LOW 45.0 [facility] CHEMISTRY Trig 123 mg/dL <=149 06/08 Normal [facility] CHEMISTRY Alk Phos 63 unit/L 39 - 136 06/08 Normal [facility] CHEMISTRY ASPARTATE 7 unit/L 0 - 37 06/08 Normal TRANSAMINASE [facility] CHEMISTRY Bili Total 0.5 mg/dL 0.2 - 1.3 06/08 Normal [facility] CHEMISTRY B/C Ratio 20 6 - 25 06/08 Normal [facility] CHEMISTRY Total 5.5 g/dL 6.4 - 8.4 06/08 LOW Protein [facility] CHEMISTRY Globulin 3.3 g/dL 2.0 - 4.0 06/08 Normal [facility] CHEMISTRY A/G Ratio 0.7 0.7 - 1.6 06/08 Normal [facility] CHEMISTRY Albumin Lvl 2.2 g/dL 3.5 - 5.0 06/08 LOW [facility] CHEMISTRY ALANINE 6 unit/L 0 - 65 06/08 Normal AMINOTRANS [facility] RAS HEMATOLOGY Segs-Bands # 6.8 K/CMM 1.5 - 8.1 06/08 Normal [facility] HEMATOLOGY Basophils 0.5 % 0.0 - 1.0 06/08 Normal [facility] HEMATOLOGY Eosinophils 4.1 % 0.0 - 4.0 06/08 HI MH [facility] HEMATOLOGY Monocytes # 0.7 K/CMM 0.0 - 0.8 06/08 Normal [facility] HEMATOLOGY Lymphocytes 1.2 K/CMM 1.0 - 5.5 06/08 Normal MH # [facility] HEMATOLOGY Monocytes 8.0 % 2.0 - 12.0 06/08 Normal [facility] HEMATOLOGY Lymphocytes 12.8 % 20.0 - 06/08 LOW 40.0 [facility] HEMATOLOGY Basophils # 0.0 K/CMM 0.0 - 0.2 06/08 Normal [facility] HEMATOLOGY Eosinophils 0.4 K/CMM 0.0 - 0.5 06/08 Normal MH # [facility] HEMATOLOGY Segs 74.6 % 45.0 - 06/08 Normal 75.0 /2013 [facility] HEMATOLOGY MCHC 34.2 g/dL 32.0 - 06/08 Normal 36.0 /2013 [facility] HEMATOLOGY MCH 29.0 pg 27.0 - 06/08 Normal 31.0 /2013 [facility] HEMATOLOGY RDW 15.6 % 11.5 - 06/08 HI MH 14.5 [facility] HEMATOLOGY MPV 9.9 fL 7.4 - 10.4 06/08 Normal /2013 [facility] HEMATOLOGY Platelet 141 K/CMM 133 - 450 06/08 Normal [facility] HEMATOLOGY MCV 84.8 fL 81.0 - 06/08 Normal 99.0 /2013 [facility] HEMATOLOGY Hct 27.3 % 36.0 - 06/08 LOW 48.0 /2013 [facility] HEMATOLOGY WBC X 10x3 9.1 K/CMM 3.7 - 10.4 06/08 Normal [facility] HEMATOLOGY RBC X 10x6 3.21 M/CMM 4.20 - 06/08 LOW 5.40 /2013 [facility] HEMATOLOGY Hgb 9.3 g/dL 12.0 - 06/08 LOW 16.0 /2013 [facility] CHEMISTRY Vanco Tr TND 1500 06/07 [facility] CHEMISTRY Vanco Tr 4.7 ug/ml 06/07 10Interpretive Data: Therapeutic Range: Trough: 10 - 20 ug/mL [facility] Peak: 20 - 40 ug/mL Potential Toxicity: >80 ug/mL HEMATOLOGY aPTT 33.8 s 22.9 - 06/07 Normal 12Interpretiv 35.8 e Data: [facility] Heparin Therapeutic Range: 57 - 92 Seconds HEMATOLOGY INR 1.25 0.85 - 06/07 VT 11Interpretive Data: RECOMMENDED RANGES FOR PROTIME INR: . 2.0-3.0 for most medical and surgical thromboembolic states. [facility] 2.5-3.5 for artificial heart valves and recurrent embolism. INR SHOULD BE USED ONLY FOR PATIENTS ON STABLE ANTICOAGULANT THERAPY. HEMATOLOGY PROTIME 15.6 s 12.0 - 06/07 [facility] 14.7 [facility] HEMATOLOGY FSP >=5 <20 <5 06/07 ABN MH ug/ml /2013 [facility] HEMATOLOGY Fibrinogen 694 mg/dL 230 - 510 06/07 HI Lvl [facility] HEMATOLOGY MPV 9.7 fL 7.4 - 10.4 06/07 Normal [facility] HEMATOLOGY RDW 15.5 % 11.5 - 06/07 HI 14.5 [facility] HEMATOLOGY Platelet 139 K/CMM 133 - 450 06/07 Normal [facility] HEMATOLOGY MCH 27.9 pg 27.0 - 06/07 Normal 31.0 /2013 [facility] HEMATOLOGY MCHC 33.0 g/dL 32.0 - 06/07 Normal 36.0 /2013 [facility] HEMATOLOGY MCV 84.5 fL 81.0 - 06/07 Normal 99.0 /2013 [facility] HEMATOLOGY Hgb 9.5 g/dL 12.0 - 06/07 LOW 16.0 /2013 [facility] HEMATOLOGY Hct 28.7 % 36.0 - 01 LOW 48.0 /2013 [facility] HEMATOLOGY WBC X 10x3 11.0 K/CMM 3.7 - 10.4 06/07 HI /2013 [facility] HEMATOLOGY RBC X 10x6 3.40 M/CMM 4.20 - 01 LOW 5.40 /2013 [facility] BLOOD BANK RBC product Product available 06/06 Normal RESULTS /2013 [facility] (06/06/2013 12:03:00) HEMATOLOGY aPTT 36.6 s 22.9 - 06/06 HI 13Interpretiv MH 35.8 /2013 e Data: [facility] Heparin Therapeutic Range: 57 - 92 Seconds CHEMISTRY ALANINE 19 unit/L 0 - 65 06/05 Normal AMINOTRANS [facility] RASE CHEMISTRY Albumin Lvl 3.0 g/dL 3.5 - 5.0 06/05 LOW [facility] CHEMISTRY ASPARTATE 14 unit/L 0 - 37 06/05 Normal TRANSAMINASE [facility] CHEMISTRY Total 5.7 g/dL 6.4 - 8.4 06/05 LOW Protein [facility] CHEMISTRY Bili Total 0.5 mg/dL 0.2 - 1.3 06/05 Normal [facility] CHEMISTRY B/C Ratio 8 6 - 25 06/05 Normal [facility] CHEMISTRY A/G Ratio 1.1 0.7 - 1.6 06/05 Normal [facility] CHEMISTRY Globulin 2.7 g/dL 2.0 - 4.0 06/05 Normal [facility] CHEMISTRY Alk Phos 51 unit/L 39 - 136 06/05 Normal [facility] HEMATOLOGY Segs-Bands # 12.9 K/CMM 1.5 - 8.1 06/04 VT [facility] HEMATOLOGY Segs 71.0 % 45.0 - 06/04 Normal 75.0 /2013 [facility] HEMATOLOGY Bands 7.0 % 0.0 - 11.0 06/04 Normal [facility] HEMATOLOGY Lymphocytes 2.6 K/CMM 1.0 - 5.5 06/04 Normal # /2013 [facility] HEMATOLOGY Basophils # 0.5 K/CMM 0.0 - 0.2 06/04 HI [facility] HEMATOLOGY Monocytes # 0.5 K/CMM 0.0 - 0.8 06/04 Normal MH [facility] HEMATOLOGY Stomatocyte Slight None Seen 06/04 ABN MH [facility] *ABN* (06/04/2013 15:45:01) HEMATOLOGY Basophils 3.0 % 0.0 - 1.0 06/04 HI MH [facility] HEMATOLOGY Monocytes 3.0 % 2.0 - 12.0 06/04 Normal MH [facility] HEMATOLOGY Lymphocytes 9.0 % 20.0 - 06/04 LOW MH 40.0 [facility] HEMATOLOGY Atypical 7.0 % <=0.0 06/04 HI MH Lymphs [facility] HEMATOLOGY Plt Morph Normal 06/04 Normal MH [facility] (06/04/2013 15:45:01) BLOOD BANK RBC product Product available 06/04 Normal MH RESULTS [facility] (06/04/2013 12:06:00) BLOOD BANK ABO/Rh O POS 06/03 MH RESULTS [facility] BLOOD BANK Antibody Negative 06/03 Normal RESULTS Scrn [facility] (06/03/2013 05:45:00) CVC insert CVC insert Central venous catheter placement: 06/03 - non-tunnel non-tunnel - [facility] age 5+ yrs age 7+ yrs VR [...] ultrasound guidance and Seldinger technique a 7 [place] triple lumen catheter was introduced into the [...] 05/31/2013 AT 1805 HOURS. 05/31 - - [facility] INDICATION: PICC placement. Read by: Petros Wood [...] 1.32 ng/mL 0.60 - 05/31 Normal 1.81 [facility] CHEMISTRY TSH 8.430 0.360 - 05/31 HI uIU/mL 3.740 [facility] CHEMISTRY T4 9.0 ug/dl 4.7 - 13.3 05/31 Normal /2013 [facility] Abdomen/Pe Abdomen/Pelv CT abdomen and pelvis without IV contrast, May 31, 2013 01:20:00 PM 05/31 - lvis wo IV is IV /2013 - [facility] contrast contrast CT CT CLINICAL HISTORY: Abdominal [...] 09/20 Normal 2Interpretive GLUCOSE Lifsc[facility] /2011 Data: [facility] TESTING Upper Reportable Limit: 200 mg/dL. BEDSIDE Comment1 Notify 09/20 NA GLUCOSE RN/MD /2011 [facility] TESTING BEDSIDE Comment2 Assess 09/20 NA GLUCOSE Patient /2011 [facility] TESTING BEDSIDE Comment2 Assess 09/20 NA GLUCOSE Patient /2011 [facility] TESTING BEDSIDE Comment1 Notify 09/20 NA GLUCOSE RN/MD /2011 [facility] TESTING BEDSIDE Gluc POC 107 mg/dL 70 - 99 09/20 HI 3Interpretive GLUCOSE Lifsc[facility] Data: [facility] TESTING Upper Reportable Limit: 200 mg/dL. CHEMISTRY Magnesium 1.6 mg/dL 1.8 - 2.4 09/20 LOW Lv [facility] CHEMISTRY Creatinine 1.2 mg/dL 0.5 - 1.4 09/20 Normal Lvl [facility] CHEMISTRY BUN 19 mg/dL 7 - 22 09/20 Normal [facility] CHEMISTRY Glucose Lvl 94 mg/dL 70 - 99 09/20 Normal 5Interpretive Data: Adult [facility] reference range values reflect the clinical guidelinesof the [employer]. CHEMISTRY Calcium Lvl 7.9 mg/dL 8.5 - 10.5 09/20 LOW [facility] CHEMISTRY Potassium 3.9 meq/L 3.5 - 5.1 09/20 Normal Lvl [facility] CHEMISTRY Sodium Lvl 146 meq/L 135 - 145 09/20 HI [facility] CHEMISTRY CO2 24 meq/L 24 - 32 09/20 Normal [facility] CHEMISTRY Chloride Lvl 110 meq/L 95 - 109 09/20 HI [facility] CHEMISTRY AGAP 15.9 meq/L 10.0 - 09/20 Normal 20.0 [facility] HEMATOLOGY Monocytes # 0.9 K/CMM 0.0 - 0.8 09/20 HI MH [facility] HEMATOLOGY Eosinophils 0.6 K/CMM 0.0 - 0.5 09/20 HI MH # /2011 [facility] HEMATOLOGY Basophils # 0.0 K/CMM 0.0 - 0.2 09/20 Normal MH /2011 [facility] HEMATOLOGY Lymphocytes 1.9 K/CMM 1.0 - 5.5 09/20 Normal MH # /2011 [facility] HEMATOLOGY Eosinophils 6.7 % 0.0 - 4.0 09/20 HI MH /2011 [facility] HEMATOLOGY Basophils 0.4 % 0.0 - 1.0 09/20 Normal [facility] HEMATOLOGY Segs-Bands # 4.9 K/CMM 1.5 - 8.1 09/20 Normal [facility] HEMATOLOGY Lymphocytes 22.7 % 20.0 - 09/20 Normal MH 40.0 /2011 [facility] HEMATOLOGY Monocytes 10.5 % 2.0 - 12.0 09/20 Normal MH /2011 [facility] HEMATOLOGY Segs 59.7 % 45.0 - 09/20 Normal 75.0 /2011 [facility] HEMATOLOGY RBC 3.15 M/CMM 4.20 - 09/20 LOW 5.40 /2011 [facility] WBC 8.2 K/CMM 3.7 - 10.4 09/20 Normal [facility] Hct 28.1 % 36.0 - 09/20 LOW 48.0 [facility] HEMATOLOGY RDW 14.5 % 11.5 - 09/20 Normal 14.5 [facility] MCH 30.3 pg 27.0 - 09/20 Normal 31.0 [facility] MCV 89.4 fL 81.0 - 09/20 Normal 99.0 [facility] MCHC 33.9 g/dL 32.0 - 09/20 Normal 36.0 [facility] Hgb 9.5 g/dL 12.0 - 09/20 LOW 16.0 [facility] HEMATOLOGY MPV 9.1 fL 7.4 - 10.4 09/20 Normal MH [facility] HEMATOLOGY Platelet 152 K/CMM 133 - 450 09/20 Normal [facility] HEMATOLOGY PTT 29.9 s 22.9 - 09/20 Normal 21Interpretiv MH 35.8 /2011 e Data: [facility] Heparin Therapeutic Range: 57 - 92 Seconds HEMATOLOGY INR 1.23 0.85 - 09/20 HI 18Interpretiv MH 1.17 e Data: [facility] RECOMMENDED RANGES FOR PROTIME INR: 2.0-3.0 for most medical and surgical thromboemboli c states. 2.5-3.5 for artificial heart valves and recurrent embolism.INR SHOULD BE USED ONLY FOR PATIENTS ON STABLE ANTICOAGULANT THERAPY. HEMATOLOGY PT 15.5 s 12.0 - 09/20 [facility] 14.7 [facility] Microbiolo Culture: 09/20 gy Urine [facility] BEDSIDE Gluc POC 97 mg/dL 70 - 99 09/20 Normal 4Interpretive GLUCOSE Lifscn Data: [facility] TESTING Upper Reportable Limit: 200 mg/dL. BEDSIDE Comment1 Notify 09/20 NA GLUCOSE RN/MD [facility] TESTING CHEMISTRY Magnesium 1.7 mg/dL 1.8 - 2.4 09/19 LOW Lvl [facility] CHEMISTRY AGAP 17.4 meq/L 10.0 - 09/19 Normal 20.0 [facility] CHEMISTRY Chloride Lvl 112 meq/L 95 - 109 09/19 HI [facility] CHEMISTRY CO2 20 meq/L 24 - 32 09/19 LOW [facility] CHEMISTRY Sodium Lvl 146 meq/L 135 - 145 09/19 [facility] CHEMISTRY Potassium 3.4 meq/L 3.5 - 5.1 09/19 LOW Lvl [facility] CHEMISTRY Creatinine 1.3 mg/dL 0.5 - 1.4 09/19 Normal Lvl [facility] CHEMISTRY Calcium Lvl 8.1 mg/dL 8.5 - 10.5 09/19 LOW [facility] CHEMISTRY BUN 23 mg/dL 7 - 09/19 VT MH [facility] CHEMISTRY Glucose Lvl 112 mg/dL 70 - 99 09/19 VT 6Interpretive MH Data: Adult [facility] reference range values reflect the clinical guidelinesof the [employer]. CHEMISTRY Ammonia 28.0 <=45.0 09/19 Normal umol/L [facility] CHEMISTRY T4 9.9 ug/dl 4.7 - 13.3 09/19 Normal [facility] CHEMISTRY T3 Total 0.64 ng/mL 0.50 - 09/19 Normal 1.48 [facility] HEMATOLOGY INR 1.18 0.85 - 09/19 HI 19Interpretiv 1.17 e Data: [facility] RECOMMENDED RANGES FOR PROTIME INR: 2.0-3.0 for most medical and surgical thromboemboli c states. 2.5-3.5 for artificial heart valves and recurrent embolism.INR SHOULD BE USED ONLY FOR PATIENTS ON STABLE ANTICOAGULANT THERAPY. HEMATOLOGY PT 15.0 s 12.0 - 09/19 [facility] 14.7 [facility] HEMATOLOGY PTT 32.0 s 22.9 - 09/19 Normal 22Interpretiv MH 35.8 /2011 e Data: [facility] Heparin Therapeutic Range: 57 - 92 Seconds HEMATOLOGY RDW 14.8 % 11.5 - 09/19 HI 14.5 [facility] HEMATOLOGY MCHC 33.5 g/dL 32.0 - 09/19 Normal 36.0 /2011 [facility] HEMATOLOGY Platelet 169 K/CMM 133 - 450 09/19 Normal MH /2011 [facility] HEMATOLOGY MPV 8.7 fL 7.4 - 10.4 09/19 Normal MH /2011 [facility] HEMATOLOGY RBC 3.70 M/CMM 4.20 - 09/19 LOW 5.40 /2011 [facility] HEMATOLOGY WBC 7.5 K/CMM 3.7 - 10.4 09/19 Normal MH /2011 [facility] HEMATOLOGY Hgb 11.0 g/dL 12.0 - 09/19 LOW 16.0 [facility] HEMATOLOGY Hct 33.0 % 36.0 - 09/19 LOW 48.0 [facility] HEMATOLOGY MCV 89.1 fL 81.0 - 09/19 Normal 99.0 /2011 [facility] HEMATOLOGY MCH 29.8 pg 27.0 - 09/19 Normal 31.0 /2011 [facility] HEMATOLOGY Basophils # 0.0 K/CMM 0.0 - 0.2 09/19 Normal /2011 [facility] HEMATOLOGY Eosinophils 0.6 K/CMM 0.0 - 0.5 09/19 HI # /2011 [facility] HEMATOLOGY Lymphocytes 21.8 % 20.0 - 09/19 Normal 40.0 [facility] HEMATOLOGY Segs 62.1 % 45.0 - 09/19 Normal 75.0 [facility] HEMATOLOGY Monocytes # 0.6 K/CMM 0.0 - 0.8 09/19 Normal /2011 [facility] HEMATOLOGY Lymphocytes 1.6 K/CMM 1.0 - 5.5 09/19 Normal # /2011 [facility] HEMATOLOGY Segs-Bands # 4.7 K/CMM 1.5 - 8.1 09/19 Normal /2011 [facility] HEMATOLOGY Basophils 0.3 % 0.0 - 1.0 09/19 Normal /2011 [facility] HEMATOLOGY Eosinophils 7.7 % 0.0 - 4.0 09/19 HI /2011 [facility] HEMATOLOGY Monocytes 8.1 % 2.0 - 12.0 09/19 Normal [facility] CHEMISTRY Magnesium 1.8 mg/dL 1.8 - 2.4 09/18 Normal Lvl [facility] CHEMISTRY Sodium Lvl 144 meq/L 135 - 145 09/18 Normal [facility] CHEMISTRY Potassium 3.5 meq/L 3.5 - 5.1 09/18 Normal MH Lvl [facility] CHEMISTRY Creatinine 1.3 mg/dL 0.5 - 1.4 09/18 Normal Lvl [facility] CHEMISTRY Chloride Lvl 110 meq/L 95 - 109 09/18 HI [facility] CHEMISTRY CO2 22 meq/L 24 - 32 09/18 LOW [facility] CHEMISTRY AGAP 15.5 meq/L 10.0 - 09/18 Normal MH 20.0 [facility] CHEMISTRY Calcium Lvl 8.0 mg/dL 8.5 - 10.5 09/18 LOW [facility] CHEMISTRY BUN 31 mg/dL 7 - 22 09/18 HI [facility] CHEMISTRY Glucose Lvl 90 mg/dL 70 - 99 09/18 Normal 7Interpretive Data: Adult [facility] reference range values reflect the clinical guidelinesof the [employer]. HEMATOLOGY Segs-Bands # 6.0 K/CMM 1.5 - 8.1 09/18 Normal [facility] HEMATOLOGY Monocytes # 0.8 K/CMM 0.0 - 0.8 09/18 Normal [facility] HEMATOLOGY Lymphocytes 1.7 K/CMM 1.0 - 5.5 09/18 Normal MH [facility] HEMATOLOGY Eosinophils 0.6 K/CMM 0.0 - 0.5 09/18 HI MH [facility] HEMATOLOGY Monocytes 8.5 % 2.0 - 12.0 09/18 Normal [facility] HEMATOLOGY Lymphocytes 18.2 % 20.0 - 09/18 LOW MH 40.0 [facility] HEMATOLOGY Basophils 0.4 % 0.0 - 1.0 09/18 Normal [facility] HEMATOLOGY Eosinophils 6.7 % 0.0 - 4.0 09/18 HI [facility] HEMATOLOGY Basophils # 0.0 K/CMM 0.0 - 0.2 09/18 Normal [facility] HEMATOLOGY Segs 66.2 % 45.0 - 09/18 Normal MH 75.0 /2011 [facility] HEMATOLOGY MCV 89.3 fL 81.0 - 09/18 Normal 99.0 [facility] HEMATOLOGY Hct 31.0 % 36.0 - 09/18 LOW MH 48.0 /2011 [facility] HEMATOLOGY RBC 3.48 M/CMM 4.20 - 09/18 LOW 5.40 /2011 [facility] HEMATOLOGY Hgb 10.5 g/dL 12.0 - 09/18 LOW 16.0 /2011 [facility] HEMATOLOGY MCH 30.1 pg 27.0 - 09/18 Normal 31.0 /2011 [facility] HEMATOLOGY Platelet 189 K/CMM 133 - 450 09/18 Normal [facility] HEMATOLOGY RDW 14.7 % 11.5 - 09/18 HI 14.5 [facility] HEMATOLOGY MPV 8.3 fL 7.4 - 10.4 09/18 Normal [facility] HEMATOLOGY MCHC 33.7 g/dL 32.0 - 09/18 Normal 36.0 /2011 [facility] HEMATOLOGY WBC 9.1 K/CMM 3.7 - 10.4 09/18 Normal [facility] HEMATOLOGY INR 1.22 0.85 - 09/18 VT 20Interpretiv 1.17 e Data: [facility] RECOMMENDED RANGES FOR PROTIME INR: 2.0-3.0 for most medical and surgical thromboemboli c states. 2.5-3.5 for artificial heart valves and recurrent embolism.INR SHOULD BE USED ONLY FOR PATIENTS ON STABLE ANTICOAGULANT THERAPY. HEMATOLOGY PT 15.4 s 12.0 - 09/18 [facility] 14.7 [facility] HEMATOLOGY PTT 30.7 s 22.9 - 09/18 Normal 23Interpretiv 35.8 e Data: [facility] Heparin Therapeutic Range: 57 - 92 Seconds CHEMISTRY Vanco Tr TND 1400 09/17 NA [facility] CHEMISTRY Vanco Tr 3.5 ug/ml 09/17 14Interpretiv e Data: [facility] Therapeutic Range: Trough: 10 - 20 ug/mL Peak: 20 - 40 ug/mL Potential Toxicity: >80 ug/mL BEDSIDE Comment2 Assess 09/17 NA GLUCOSE Patient [facility] TESTING HEMATOLOGY Plt Morph Normal 09/17 Normal [facility] (09/18/2011 06:50:00) HEMATOLOGY Polychrom Slight None Seen 09/17 Normal [facility] (09/18/2011 06:50:00) HEMATOLOGY Hypochrom Slight None Seen 09/17 Normal [facility] (09/18/2011 06:50:00) CHEMISTRY Phosphorus 2.9 mg/dL 2.5 - 4.5 04/21 Normal [facility] HEMATOLOGY FSP >=20 ug/ml <5 09/16 ABN /2011 [facility] *ABN* (09/17/2011 05:30:00) CHEMISTRY Mode Art NC 09/15 Normal [facility] (09/16/2011 06:04:00) CHEMISTRY Allens Art Positive 09/15 Normal [facility] (09/16/2011 06:04:00) CHEMISTRY Flow Art 3.5 09/15 NA [facility] CHEMISTRY Site Art Right Ra 09/15 Normal [facility] (09/16/2011 06:04:00) CHEMISTRY O2 Sat Art 96.0 % 95.0 - 09/15 Normal MH 100.0 [facility] CHEMISTRY Temp Art 37.0 Lisa 09/15 NA [facility] CHEMISTRY BE Art -1 mMol/L -2-2 - 2 09/15 Normal [facility] CHEMISTRY pCO2 Art 37 mm[Hg] 35 - 45 09/15 Normal [facility] CHEMISTRY pH Art 7.41 7.35 - 09/15 Normal MH 7.45 [facility] CHEMISTRY pO2 Art 78 mm[Hg] 80 - 100 09/15 LOW [facility] CHEMISTRY HCO3 Art 24 mMol/L 22 - 26 09/15 Normal [facility] CHEMISTRY A/G Ratio 0.9 0.7 - 1.6 09/15 Normal [facility] CHEMISTRY Globulin 3.0 g/dL 2.0 - 4.0 09/15 Normal [facility] CHEMISTRY B/C Ratio 26 6 - 25 09/15 HI [facility] CHEMISTRY ALT 8 U/L 0 - 65 09/15 Normal [facility] CHEMISTRY Bili Total 0.7 mg/dL 0.2 - 1.3 09/15 Normal [facility] CHEMISTRY Alk Phos 52 U/L 39 - 136 09/15 Normal [facility] CHEMISTRY Albumin Lvl 2.8 g/dL 3.5 - 5.0 09/15 LOW [facility] CHEMISTRY Total 5.8 g/dL 6.4 - 8.4 09/15 LOW [facility] CHEMISTRY AST 12 U/L 0 - 37 09/15 Normal [facility] CHEMISTRY BNP 281 pg/mL <=100 09/15 HI 8Interpretive Data: [facility] Elevated results are in line with increasing severity of congestive heart failure. Minor elevations between 100 and 300 may be seen with Myocardial Ischemia, Sodium retaining drugs, and compensated/t reated heart failure. CHEMISTRY Phosphorus 2.7 mg/dL 2.5 - 4.5 09/15 Normal [facility] HEMATOLOGY FSP >=5 <20 <5 09/15 ABN MH ug/ml /2011 [facility]
*ABN*
(08/28 03:15:00) <sup> </sup> CHEMISTRY pCO2 Art 36 mm[Hg] 35 - 45 09/14 Normal [facility] CHEMISTRY pH Art 7.39 7.35 - 09/14 Normal MH 7.45 [facility] CHEMISTRY pO2 Art 108 mm[Hg] 80 - 100 09/14 HI [facility] CHEMISTRY Temp Art 37.0 Lisa 09/14 NA [facility] CHEMISTRY Site Art Right Ra 09/14 Normal [facility] (09/15/2011 06:08:00) CHEMISTRY Allens Art Positive 09/14 Normal [facility] (09/15/2011 06:08:00) CHEMISTRY BE Art -3 mMol/L -2-2 - 2 09/14 LOW [facility] CHEMISTRY HCO3 Art 22 mMol/L 22 - 26 09/14 Normal [facility] CHEMISTRY Mode Art A/C 09/14 Normal [facility] (09/15/2011 06:08:00) CHEMISTRY O2 Sat Art 98.0 % 95.0 - 09/14 Normal MH 100.0 [facility] CHEMISTRY FiO2 Art 40.0 09/14 NA [facility] CHEMISTRY CK MB 0.9 ng/mL 0.5 - 3.6 09/14 Normal [facility] CHEMISTRY Total CK 562 U/L 12 - 191 09/14 HI [facility] CHEMISTRY Troponin-I 0.03 ng/mL 0.00 - 09/14 Normal MH 0.40 [facility] CHEMISTRY Phosphorus 2.9 mg/dL 2.5 - 4.5 09/14 Normal [facility] CHEMISTRY Ca Ion mgdL 4.08 mg/dL 4.65 - 09/14 LOW MH 5. [facility] CHEMISTRY Ca Norm mgdL 4.04 mg/dL 4.65 - 09/14 LOW MH 5. [facility] CHEMISTRY Ca Norm 1.01 1.16 - 09/14 LOW MH mMol/L 1. [facility] CHEMISTRY Ca Ion 1.02 1.16 - 09/14 LOW MH mMol/L 1.30 [facility] CHEMISTRY CK MB Index 0.2 0.0 - 2.5 09/14 Normal [facility] CHEMISTRY Vanco Lvl unknown 09/14 NA MH TLD [facility] CHEMISTRY Vanco Lvl 9.2 ug/ml 09/14 NA 12Interpretiv e Data: [facility] Therapeutic Range: Trough: 10 - 20 ug/mL Peak: 20 - 40 ug/mL Potential Toxicity: >80 ug/mL CHEMISTRY BNP 403 pg/mL <=100 09/14 HI 9Interpretive Data: [facility] Elevated results are in line with increasing severity of congestive heart failure. Minor elevations between 100 and 300 may be seen with Myocardial Ischemia, Sodium retaining drugs, and compensated/t reated heart failure. HEMATOLOGY FSP >=5 <20 <5 09/14 ABN MH ug/ml [facility]
*ABN*
(08/27 03:00:00) <sup> </sup> CHEMISTRY CK MB 1.2 ng/mL 0.5 - 3.6 09/13 Normal [facility] CHEMISTRY Total CK 872 U/L 09/13 HI [facility] CHEMISTRY Troponin-I 0.04 ng/mL 0.00 - 09/13 Normal 0.40 [facility] CHEMISTRY CK MB Index 0.1 0.0 - 2.5 09/13 Normal [facility] BLOOD BANK RBC product Product available 09/13 Normal RESULTS /2011 [facility] (09/14/2011 09:07:00) BLOOD BANK Antibody Negative 09/13 Normal RESULTS Scrn [facility] (09/14/2011 09:05:00) BLOOD BANK ABO/Rh O POS 09/13 Unknown MH RESULTS /2011 [facility] CHEMISTRY CK MB 2.0 ng/mL 0.5 - 3.6 09/13 Normal [facility] CHEMISTRY Total CK 1190 U/L - 09/13 HI [facility] CHEMISTRY Troponin-I 0.05 ng/mL 0.00 - 09/13 Normal MH 0.40 [facility] CHEMISTRY CK MB Index 0.2 0.0 - 2.5 09/13 Normal [facility] CHEMISTRY T4 Free 1.01 ng/dL 0.76 - 09/13 Normal MH 1.46 [facility] CHEMISTRY T3 Free 1.51 pg/mL 2.18 - 09/13 LOW MH 3.98 /2012 [facility] CHEMISTRY TSH 4.590 0.360 - 09/13 HI MH uIU/mL 3.740 /2011 [facility] CHEMISTRY HCO3 Art 22 mMol/L 22 - 26 09/13 Normal [facility] CHEMISTRY Site Art A Line 09/13 Normal MH /2011 [facility] (09/14/2011 04:29:00) CHEMISTRY O2 Sat Art 96.0 % 95.0 - 09/13 Normal MH 100.0 /2011 [facility] CHEMISTRY Mode Art A/C 09/13 Normal /2011 [facility] (09/14/2011 04:29:00) CHEMISTRY Temp Art 37.0 Lisa 09/13 NA [facility] CHEMISTRY Vt Art 500 09/13 NA MH [facility] CHEMISTRY PEEP Art 5.0 09/13 NA [facility] CHEMISTRY FiO2 Art 40.0 09/13 NA [facility] CHEMISTRY pO2 Art 86 mm[Hg] 80 - 100 09/13 Normal [facility] CHEMISTRY BE Art -4 mMol/L -2-2 - 2 09/13 LOW [facility] CHEMISTRY pCO2 Art 38 mm[Hg] 35 - 45 09/13 Normal [facility] CHEMISTRY pH Art 7.36 7.35 - 09/13 Normal MH 7.45 /2011 [facility] CHEMISTRY Vanco Lvl ntn 09/13 NA MH TLD [facility] CHEMISTRY Vanco Lvl 3.3 ug/ml 09/13 NA 13Interpretiv e Data: [facility] Therapeutic Range: Trough: 10 - 20 ug/mL Peak: 20 - 40 ug/mL Potential Toxicity: >80 ug/mL CHEMISTRY Ca Ion 1.00 1.16 - 09/13 LOW MH mMol/L . [facility] CHEMISTRY Ca Norm 0.98 1.16 - 09/13 LOW MH mMol/L . [facility] CHEMISTRY Ca Ion mgdL 4.00 mg/dL 4.65 - 09/13 LOW MH 5. [facility] CHEMISTRY Ca Norm mgdL 3.92 mg/dL 4.65 - 09/13 LOW MH 5. [facility] CHEMISTRY BNP 301 pg/mL <=100 09/13 HI 10Interpretiv e Data: [facility] Elevated results are in line with increasing severity of congestive heart failure. Minor elevations between 100 and 300 may be seen with Myocardial Ischemia, Sodium retaining drugs, and compensated/t reated heart failure. CHEMISTRY Lactic Acid 0.9 mMol/L 0.5 - 2.2 09/13 Normal MH Lvl [facility] CHEMISTRY Trig 82 mg/dL 0 - 200 09/13 Normal [facility] CHEMISTRY AST 35 U/L 0 - 37 09/13 Normal [facility] CHEMISTRY Bili Total 0.6 mg/dL 0.2 - 1.3 09/13 Normal [facility] CHEMISTRY B/C Ratio 13 6 - 25 09/13 Normal [facility] CHEMISTRY A/G Ratio 1.3 0.7 - 1.6 09/13 Normal [facility] CHEMISTRY Globulin 2.3 g/dL 2.0 - 4.0 09/13 Normal [facility] CHEMISTRY Albumin Lvl 3.0 g/dL 3.5 - 5.0 09/13 LOW [facility] CHEMISTRY Total 5.3 g/dL 6.4 - 8.4 09/13 LOW Protein [facility] CHEMISTRY Alk Phos 54 U/L 39 - 136 09/13 Normal [facility] CHEMISTRY ALT 8 U/L 0 - 65 09/13 Normal [facility] IMMUNOLOGY Prealbumin 8.1 mg/dL 18.0 - 09/13 LOW MH 45.0 [facility] HEMATOLOGY Heprn Negative Negative 09/12 Normal Ab(KAITY) [facility] (09/13/2011 13:00:00) HEMATOLOGY Pos CO Value 0.403 09/12 NA [facility] HEMATOLOGY Pat Od Value 0.058 09/12 NA [facility] CHEMISTRY FiO2 Art 60.0 09/12 [facility] CHEMISTRY Ca Norm mgdL 3.40 mg/dL 4.65 - 09/12 CRIT MH . [facility] CHEMISTRY Ca Ion 0.87 1.16 - 09/12 CRIT 11Result MH mMol/L 06.27 Comment: [facility] Critical Result(s) called to [facility] at 09/12/2011 21:02 by tp. Read back OK. CHEMISTRY Ca Norm 0.85 1.16 - 09/12 CRIT MH mMol/L 06.27 [facility] CHEMISTRY Ca Ion mgdL 3.48 mg/dL 4.65 - 09/12 CRIT MH . [facility] CHEMISTRY Allens Art N/A 09/11 Normal [facility] (09/12/2011 06:03:00) CHEMISTRY Rate Art 12 09/11 NA [facility] CHEMISTRY Vt Art 500 09/11 NA [facility] CHEMISTRY PEEP Art 5.0 09/11 NA [facility] HEMATOLOGY Elliptocyte Slight None Seen 09/11 ABN [facility] *ABN* (09/12/2011 04:00:00) HEMATOLOGY Plt Morph Normal 09/11 Normal [facility] (09/12/2011 04:00:00) CHEMISTRY Rate Art 10 09/10 NA [facility] BLOOD BANK RBC product Product available 09/10 Normal [facility] (09/11/2011 15:35:00) CHEMISTRY U Potassium 50.7 meq/L 09/10 NA 17Interpretiv e Data: No [facility] established reference ranges. CHEMISTRY U Sodium 12 meq/L 09/10Interpretiv e Data: No [facility] established reference ranges. CHEMISTRY U Chloride null 09/10 NA [facility] URINALYSIS UA null 0.1 - 1.0 09/10 [place] [facility] URINALYSIS UA [place] /LPF 09/10 NA [facility] URINALYSIS Micro? Performed 09/10 NA [facility] *NA* (09/11/2011 13:30:00) URINALYSIS UA Bili Negative Negative 09/10 [facility] *NA* (09/11/2011 13:30:00) URINALYSIS UA Ketones 10 mg/dL Negative 09/10 [facility] *ABN* (09/11/2011 13:30:00) URINALYSIS UA Glucose 30 mg/dL Negative 09/10 [facility] *ABN* (09/11/2011 13:30:00) URINALYSIS UA Protein 70 mg/dL Negative 09/10 [facility] [facility] *ABN* (09/11/2011 13:30:00) URINALYSIS UA Blood Moderate Negative 09/10 [facility] *ABN* (09/11/2011 13:30:00) URINALYSIS UA Warren Yeast Many /HPF None Seen 09/10 [facility] *ABN* (09/11/2011 13:30:00) URINALYSIS UA Mucus Few /LPF None Seen 09/10 NA [facility] *NA* (09/11/2011 13:30:00) URINALYSIS UA Leuk Est Moderate Negative 09/10 ABN [facility] *ABN* (09/11/2011 13:30:00) URINALYSIS UA Nitrite Negative Negative 09/10 Normal [facility] (09/11/2011 13:30:00) URINALYSIS UA Sq Epi Many /LPF Few 09/10 ABN [facility] *ABN* (09/11/2011 13:30:00) URINALYSIS UA WBC 17 /HPF 0 - 5 09/10 [place] [facility] URINALYSIS UA RBC 142 /HPF 0 - 2 09/10 [facility] URINALYSIS UA Hyal Cast 6 /LPF 0 - 2 09/10 [facility] URINALYSIS UA Bacteria Occasional /HPF None Seen 09/10 NA [facility] *NA* (09/11/2011 13:30:00) URINALYSIS UA Color Yellow Yellow 09/10 NA [facility] *NA* (09/11/2011 13:30:00) URINALYSIS UA Spec Grav 1.038 <=1.030 09/10 [place] [facility] URINALYSIS UA Turbidity Marked Clear 09/10 [facility] *ABN* (09/11/2011 13:30:00) URINALYSIS UA pH 5.0 5.0 - 8.0 09/10 Normal [facility] Microbiolo Culture: 09/10 gy [facility] CHEMISTRY Flow Art 6 09/10 NA [facility] CHEMISTRY TSH 1.450 0.360 - 09/10 Normal uIU/mL 3.740 [facility] CHEMISTRY Cortisol 15.3 ug/dl 3.0 - 23.0 09/10 Normal 15Interpretiv e Data: CORD [facility] BLOOD: 5 - 17 ug/dLPREMATUR E INFANTS:26-28 [...] Negative 1 09/10 Normal 1Interpretive - Data: [facility] (09/11/2011 10:05:00) INTERPRETATIO N: Negative..... .No MRSA [...] specialist. CHEMISTRY Flow Art 2.0 09/10 NA [facility] BLOOD BANK RBC product Product available 09/10 Normal RESULTS [facility] (09/11/2011 08:26:00) CHEMISTRY AST 46 U/L 0 - 37 09/10 HI MH [facility] CHEMISTRY Bili Total 0.7 mg/dL 0.2 - 1.3 09/10 Normal [facility] CHEMISTRY Globulin 2.0 g/dL 2.0 - 4.0 09/10 Normal [facility] CHEMISTRY A/G Ratio 1.6 0.7 - 1.6 09/10 Normal [facility] CHEMISTRY Alk Phos 40 U/L 39 - 136 09/10 Normal [facility] CHEMISTRY ALT 12 U/L 0 - 65 09/10 Normal [facility] CHEMISTRY Albumin Lvl 3.1 g/dL 3.5 - 5.0 09/10 LOW [facility] CHEMISTRY Total 5.1 g/dL 6.4 - 8.4 09/10 LOW [facility] CHEMISTRY B/C Ratio 7 6 - 25 09/10 Normal [facility] CHEMISTRY Lactic Acid 1.6 mMol/L 0.5 - 2.2 09/10 Normal Lvl [facility] HEMATOLOGY Polychrom Slight None Seen 09/10 Normal [facility] (09/11/2011 06:30:00) HEMATOLOGY Baso Slight None Seen 09/10 ABN [place] [facility] *ABN* (09/11/2011 06:30:00) HEMATOLOGY Hypochrom Slight None Seen 09/10 Normal [facility] (09/11/2011 06:30:00) HEMATOLOGY Plt Morph Normal 09/10 Normal [facility] (09/11/2011 06:30:00) Microbiolo Culture: 09/10 [facility] Blood [facility] Microbiolo Culture: 09/10 gy Blood [facility] BLOOD BANK ABO/Rh O POS 09/10 Unknown RESULTS [facility] BLOOD BANK Antibody Negative 09/10 Normal RESULTS Scr [facility] (09/11/2011 00:10:00) Vital Signs Vital Sign Value Date Comments Source Systolic (mm Hg) 135 01/04/2016 [facility] Diastolic (mm Hg) 84 01/04/2016 [facility] Respitory Rate 18 01/04/2016 [facility] Heart Rate 84 01/04/2016 [facility] Temperature Oral (F) 98.5 F 01/04/2016 [facility] Systolic (mm Hg) 135 01/04/2016 [facility] Diastolic (mm Hg) 74 01/04/2016 [facility] Respitory Rate 16 01/04/2016 [facility] Temperature Oral (F) 98.3 F 01/04/2016 [facility] Heart Rate 78 01/04/2016 [facility] Systolic (mm Hg) 128 01/04/2016 [facility] Diastolic (mm Hg) 71 01/04/2016 [facility] Temperature Oral (F) 98.6 F 01/04/2016 [facility] Respitory Rate 18 01/04/2016 [facility] Heart Rate 77 01/04/2016 [facility] BMI Calculated 45.48 01/03/2016 [facility] Weight 105.625 01/03/2016 [facility] Height 152.4 cm 01/03/2016 [facility] Heart Rate 69 06/20/2013 [facility] Respitory Rate 18 06/20/2013 [facility] Diastolic (mm Hg) 75 06/20/2013 [facility] Systolic (mm Hg) 144 06/20/2013 [facility] Heart Rate 73 06/20/2013 [facility] Temperature Oral (F) 98.1 F 06/20/2013 [facility] Respitory Rate 18 06/20/2013 [facility] Systolic (mm Hg) 124 06/20/2013 [facility] Diastolic (mm Hg) 73 06/20/2013 [facility] Systolic (mm Hg) 144 06/19/2013 [facility] Respitory Rate 18 06/19/2013 [facility] Temperature Oral (F) 98.1 F 06/19/2013 [facility] Diastolic (mm Hg) 66 06/19/2013 [facility] Heart Rate 74 06/19/2013 [facility] Temperature Oral (F) 98.3 F 06/19/2013 [facility] Height 152.4 cm 06/14/2013 [facility] Weight 105.455 06/14/2013 [facility] Weight 105.455 06/14/2013 [facility] Height 152.4 cm 06/14/2013 [facility] Temperature Oral (F) 98.5 F 06/13/2013 [facility] Heart Rate 71 06/13/2013 [facility] Respitory Rate 18 06/13/2013 [facility] Systolic (mm Hg) 126 06/13/2013 [facility] Diastolic (mm Hg) 65 06/13/2013 [facility] Temperature Oral (F) 97.8 F 06/13/2013 [facility] Systolic (mm Hg) 127 06/13/2013 [facility] Diastolic (mm Hg) 61 06/13/2013 [facility] Respitory Rate 20 06/13/2013 [facility] Heart Rate 67 06/13/2013 [facility] Diastolic (mm Hg) 72 06/13/2013 [facility] Systolic (mm Hg) 127 06/13/2013 [facility] Respitory Rate 20 06/13/2013 [facility] Temperature Oral (F) 97.5 F 06/13/2013 [facility] Heart Rate 71 06/13/2013 [facility] Height 152.4 cm 06/06/2013 [facility] Weight 105.455 05/31/2013 [facility] Height 152.4 cm 05/31/2013 [facility] Weight 105.455 05/31/2013 [facility] Diastolic (mm Hg) 83 09/21/2011 [facility] Systolic (mm Hg) 146 09/21/2011 [facility] Respitory Rate 18 09/21/2011 [facility] Heart Rate 70 09/21/2011 [facility] Respitory Rate 18 09/21/2011 [facility] Diastolic (mm Hg) 85 09/21/2011 [facility] Systolic (mm Hg) 143 09/21/2011 [facility] Heart Rate 69 09/21/2011 [facility] Respitory Rate 18 09/21/2011 [facility] Systolic (mm Hg) 140 09/21/2011 [facility] Heart Rate 79 09/21/2011 [facility] Diastolic (mm Hg) 71 09/21/2011 [facility] Temperature Oral (F) 98.0 F 09/21/2011 [facility] Temperature Oral (F) 98.1 F 09/21/2011 [facility] Temperature Oral (F) 98.1 F 09/20/2011 [facility] Weight 117.800 09/06/2011 [facility] Height 152.40 cm 09/06/2011 [facility] Encounters Location Location Encounter Encounter Reason Attending ADM DC Status Source Details Type Number For Provider Date Date Visit Inpatient [id number] INCISION CYNDI 09/08 09/20 Active [facility] /58191 Inpatient [id number] ABDOMINA SURAINDER 05/31 06/13 Active [facility] 2 L PAIN[facility] AJMANI [facility] [id number] DECONDIT CYNDI 06/13 06/20 Active [facility] 2 IONED ANIGBOGU /2013 [facility] tran [facility] Observation [id number] Valente 01/03 01/03 Javier 0 Daeuri /2015 [facility] Outpatient [id number] 789.06 CYNDI Cancel [facility] 0 87.01 JOSE CRUZ tran Procedures Procedure Code Date Perfomer Comments Source Appendectomy [id number] [facility] Hernia repair [id number] [facility] Appendectomy [id number] [facility] Hernia repair [id number] [facility]
--- OUTSIDE RECORDS SUMMARY | 2018-10-17 14:19 | XMS REPORT | CCD ---
:1950 Author Organization [facility] Care Team Providers Name Role Phone [...] 1 gm, Route: IVPB, 09/16/2011 09/18/2011 Discontinued [id number], Start date: 09/16/11 14:00:00, Duration: 30 day, Stop date: 10/14/11 14:00:00 Lanoxin 0.5 mg, 2 mL, Route: IV, 09/14/2011 09/14/2011 Completed Drug form: INJ, ONCE, Start date: 09/14/11 9:08:00, Stop date: 09/14/11 9:08:00 vancomycin 1 gm, Route: IVPB, 09/19/2011 09/21/2011 Discontinued [id number], Start date: 09/19/11 14:00:00, Duration: 30 day, [...] mg, 2 supp, Route: 09/14/2011 09/21/2011 Discontinued WA, Drug form: SUPP, Q48H, PRN Constipation, Start date: 09/14/11 16:56:00, Duration: 30 day, Stop date: 10/14/11 16:55:00 Dulcolax Laxative 20 mg, 2 supp, Route: 09/14/2011 09/14/2011 Completed WA, Drug form: SUPP, ONCE, Start date: 09/14/11 [...] 09/20/2011 09/19/2011 Discontinued SUB-Q, Drug form: INJ, [id number], Start date: 09/20/11 4:00:00, Duration: 30 day, [...] 09/17/2011 09/18/2011 Discontinued PO, Drug form: TAB, [id number], Start date: 09/17/11 15:00:00, Duration: 30 day, [...] 09/12/2011 09/14/2011 Completed IVPB, Drug form: INJ, [id number], Start date: 09/12/11 11:00:00, Duration: 3 day, Stop date: 09/14/11 11:00:00 Lovenox 40 mg, 0.4 mL, Route: 09/17/2011 09/19/2011 Discontinued SUB-Q, Drug form: INJ, [id number], Start date: 09/17/11 16:00:00, Duration: 30 day, [...] 09/16/2011 09/21/2011 Discontinued PO, Drug form: TAB, [id number], Start date: 09/16/11 14:00:00, Duration: 30 day, [...] Cast 6 /LPF *NA* (09/11/2011 13:30:00) UA [place] Yeast [None Seen /HPF] Many /HPF *ABN* [...] range values reflect the clinical guidelinesof the [place] [employer].6Interpretive Data: Adult reference range values reflect the clinical guidelinesof the [place] [employer].7Interpretive Data: Adult reference range values reflect the clinical guidelinesof the [place] [employer].8Interpretive Data: Elevated results are in [...] heart failure.11Result Comment: Critical Result(s) called to [facility] at 09/12/2011 21:02 by tp. Read back OK.12Interpretive Data: Therapeutic Range: Trough: 10 - 20 ug/mL Peak : 20 - 40 ug/mL Potential Toxicity: >80 ug/pQ58Gtfstyzeztzn Data: Therapeutic Range: Trough: 10 - 20 ug/mL Peak : 20 - 40 ug/mL Potential Toxicity: >80 ug/cW28Toqwydesopfe Data: Therapeutic Range: Trough: 10 - 20 ug/mL Peak : 20 - 40 ug/mL Potential Toxicity: >80 ug/tB98Zgevaqcmrrja Data: CORD BLOOD: 5 - 17 ug/dLPREMATURE INFANTS:26-28 weeks, day 4 1 - 11 ug/dL31- 35 weeks, day 4 2.5 - 9.1 ug/dLFULL TERM INFANTS:3 days 1.7 - 14 ug/dL1-7 days 2 - 11 ug/dL1-12 months 2.8 - 23 ug/ dLCHILDREN (1 - 16 years) 3 - 21 ug/dLADULT RANGE:8AM 6.0 - 23.0 ug/dL4PM 3.0 - 16.0 ug/mZ51Eggtmlupqydn Data: No established reference ranges.17Interpretive Data: No [...] Data: Heparin Therapeutic Range: 57 - 92 Rkescaj68Nkrqaqnrduiw Data: Heparin Therapeutic Range: 57 - 92 Dilmalr02Zblnjjaetcee Data: Heparin Therapeutic Range: 57 - 92 [...] Zamarripa FREE TEXT SOURCE: FINAL REPORTS Final Wigyhc09,000 - 100,000 CFU/mL Yeast PRELIMINARY REPORTS Preliminary [...]
--- OUTSIDE RECORDS SUMMARY | 2018-10-17 14:20 | XMS REPORT | CCD ---
:1950 Author Organization [facility] Care Team Providers Name Role [...] 06/13/2013 06/20/2013 Discontinued SUB-Q, Drug form: INJ, [id number], Start date: 06/13/13 23:00:00, Duration: 30 day, [...] 30 day, Stop date: 07/13/13 21:00:00(Same as: [place] 325/5) Do not exceed 4gm/day of acetaminophen. [...] mg, 1 supp, Route: 06/13/2013 06/20/2013 Discontinued [place], Drug form: SUPP, Bedtime, Dosing Weight 105.455, [...] 06/14/2013 06/19/2013 Discontinued IVPB, Drug form: SOLN, [id number], Start date: 06/14/13 3:00:00, Duration: 30 day, [...] once for up to 12 hours in x67-gvcy period (12 hours on and 12 hours [...] values reflect the clinical guidelines of the [employer].4Interpretive Data: Adult reference range values reflect the clinical guidelines of the [employer].5Interpretive Data: Therapeutic Range: Trough: 10 [...]
--- OUTSIDE RECORDS SUMMARY | 2018-10-17 14:20 | XMS REPORT | CCD ---
:1950 Author Organization [facility] Care Team Providers Name Role [...] 30 day, Stop date: 07/11/13 18:44:00(Same as: [place] 325/5) Do not exceed 4gm/day of acetaminophen. [...] 06/07/2013 06/10/2013 Discontinued SUB-Q, Drug form: INJ, [id number], Start date: 06/07/13 20:00:00, Duration: 30 day, [...] Maxipime) Tylenol 650 mg, 1 supp, Route: NE, 06/06/2013 06/13/2013 Discontinued Drug form: SUPP, Q4H, PRN Pain/Fever, Start date: 06/06/13 13:03:00, Stop date: 07/06/13 13:02:00Max hmbjuufkxvjtl=2096 mg/day (4 gm/day). (Same as: Tylenol) promethazine [...] not exceed 4gm/day of acetaminophen. (Same as: [place] 325/10) fluticasone nasal 0.05 2 inhalation, Route: [...] 06/07/2013 06/10/2013 Discontinued IVPB, Drug form: INJ, [id number], Start date: 06/07/13 20:00:00, Duration: 30 day, [...] 06/05/2013 06/06/2013 Discontinued SUB-Q, Drug form: INJ, [id number], Dosing Weight 105.455, kg, Start date: 06/05/13 [...] Dulcolax Laxative 40 mg, 4 supp, Route: NE, 06/05/2013 06/05/2013 Completed Drug form: SUPP, ONCE, [...] 06/06/2013 06/13/2013 Discontinued IVPB, Drug form: SOLN, [id number], Start date: 06/06/13 15:00:00, Duration: 30 day, [...] Dulcolax Laxative 10 mg, 1 supp, Route: NE, 06/05/2013 06/05/2013 Deleted Drug form: SUPP, ONCE, [...] Dulcolax Laxative 40 mg, 4 supp, Route: NE, 06/05/2013 06/05/2013 Deleted Drug form: SUPP, ONCE, [...] values reflect the clinical guidelines of the [place] [employer].8Interpretive Data: Adult reference range values reflect the clinical guidelines of the [place] [employer].9Interpretive Data: Adult reference range values reflect the clinical guidelines of the [place] [employer].10Interpretive Data: Therapeutic Range: Trough: 10 [...] Cell [None Seen] Slight *ABN* (06/12/2013 05:00:00) [place] Cell [None Seen] Slight *ABN* (06/12/2013 05:00:00) [...] Data: Heparin Therapeutic Range: 57 - 92 Sozfjqx90Fdiprvfmiftk Data: Heparin Therapeutic Range: 57 - 92 [...]
--- OUTSIDE RECORDS SUMMARY | 2018-10-17 14:21 | XMS REPORT ---
:1950 [facility] [address] [place] [address] Care Team Providers Name Role Phone CATRACHITO [...] Value Reference Range Comments COLOR (BEAKER) (test uivu=086) Light Yellow CLARITY (BEAKER) (test hkix=639) Clear SPECIFIC GRAVITY UA (BEAKER) (test ddjx=519) 1.006 1.001-1.035 PH UA (BEAKER) (test izgk=726) 6.5 5.0-8.0 PROTEIN UA (BEAKER) (test usbo=673) Negative Negative GLUCOSE UA (BEAKER) (test vnkv=190) Negative Negative KETONES UA (BEAKER) (test rhdb=541) Negative Negative BILIRUBIN UA (BEAKER) (test fxyl=158) Negative Negative BLOOD UA (BEAKER) (test jumj=711) Negative Negative NITRITE UA (BEAKER) (test lxin=712) Negative Negative LEUKOCYTE ESTERASE UA (BEAKER) (test hgsh=759) Trace Negative UROBILINOGEN UA (BEAKER) (test fpne=483) 0.2 mg/dL 0.2-1.0 RBC UA (BEAKER) (test zqec=768) < /HPF WBC UA (BEAKER) (test ixht=425) 2 /HPF SQUAMOUS EPITHELIAL (BEAKER) (test ilxb=661) 1 /HPF SOURCE(BEAKER) (test jxni=0353) Urine, Voided CT, BRAIN, WITHOUT [id number] 18:57:00Reason for exam:->headacheWhat is the patient's sedation [...] infarct, hemorrhage, or hydrocephalus. Signed: Devorah Smith MDReport Verified Date/Time: 02/09/2017 18 :57:54 Reading Location: [facility] Radiology Reading Room CREATINE KINASE (CK), TOTAL AND [id number] 17:04:00 Test Item Value Reference Range Comments CREATINE KINASE TOTAL (BEAKER) (test imbj=067) 108 U/L 29-200 CREATINE KINASE-MB (BEAKER) (test epbb=180) 0.8 ng/mL 0.0-6.6 CREATINE KINASE-MB INDEX (BEAKER) (test bzri=903) 0.7 % CK-MB Reference Range:<6.7 Normal6.7-10.0 Borderline>10.0 AbnormalTROPONIN [id number] 17:04:00 Test Item Value Reference Range Comments TROPONIN I (BEAKER) (test ulhg=625) < ng/mL 0.00-0.03 Troponin I (TnI) levels [...] failure, acidosis, acute neurological disease, and persistent tachyarrhythmia.PT/[id number] 17:02:00 Test Item Value Reference Range Comments PROTIME (BEAKER) (test nmno=126) 14.1 seconds 11.7-14.7 INR (BEAKER) (test ocal=442) 1.1 <=5.9 PARTIAL THROMBOPLASTIN TIME (BEAKER) (test 29.8 seconds 22.5-36.0 pxew=304) RECOMMENDED COUMADIN/WARFARIN INR THERAPY RANGESSTANDARD DOSE: 2.0 - 3.0 Includes: PROPHYLAXIS forvenous thrombosis, systemic embolization; TREATMENT for venous thrombosis and/or pulmonary embolus.HIGH RISK: Target INR is 2.5-3.5 for patients with mechanical heart valves.BASIC METABOLIC [id number] 16:58: 00 Test Item Value Reference Range Comments SODIUM (BEAKER) (test 142 meq/L 136-145 zlfb=720) POTASSIUM (BEAKER) (test 4.4 meq/L 3.5-5.1 avrr=279) CHLORIDE (BEAKER) (test 107 meq/L 98-107 wzzd=839) CO2 (BEAKER) (test 29 meq/L 22-29 urmu=938) BLOOD UREA NITROGEN 12 mg/dL 7-21 (BEAKER) (test vmht=533) CREATININE (BEAKER) (test 1.17 mg/dL 0.57-1.25 fmdd=130) GLUCOSE RANDOM (BEAKER) 96 mg/dL 70-105 (test miab=501) CALCIUM (BEAKER) (test 9.1 mg/dL 8.4-10.2 avof=117) EGFR (BEAKER) (test mL/min/1.73 sq m INSUFFICIENT CLINICAL DATA xluv=1698) TO CALCULATE ESTIMATED GFR. RAD, CHEST, PA OR AP, 1 [id number] 16:55:00Reason for exam:->chest painShould this be performed [...] well aligned. No fracture. Signed: Rabia Benjamin MDReport Verified Date/Time: 02/09/2017 16:55:35 Reading Location: [facility] Radiology Reading Room CBC W/PLT COUNT & AUTO [id number] 16:34:00 Test Item Value Reference Range Comments WHITE BLOOD CELL COUNT (BEAKER) (test vnvn=656) 6.3 K/ L 3.5-10.5 RED BLOOD CELL COUNT (BEAKER) (test txor=970) 3.63 M/ L 3.93-5.22 HEMOGLOBIN (BEAKER) (test jyvb=799) 11.4 GM/DL 11.2-15.7 HEMATOCRIT (BEAKER) (test hkdg=799) 35.5 % 34.1-44.9 MEAN CORPUSCULAR VOLUME (BEAKER) (test rvna=067) 97.8 fL 79.4-94.8 MEAN CORPUSCULAR HEMOGLOBIN (BEAKER) (test 31.4 pg 25.6-32.2 sgjj=604) MEAN CORPUSCULAR HEMOGLOBIN CONC (BEAKER) (test 32.1 GM/DL 32.2-35.5 qjqi=825) RED CELL DISTRIBUTION WIDTH (BEAKER) (test 13.4 % 11.7-14.4 khfo=926) PLATELET COUNT (BEAKER) (test sqzd=630) 149 K/CU MM 150-450 MEAN PLATELET VOLUME (BEAKER) (test baxa=813) 11.5 fL 9.4-12.3 NUCLEATED RED BLOOD CELLS (BEAKER) (test 0 /100 WBC 0-0 dqes=619) NEUTROPHILS RELATIVE PERCENT (BEAKER) (test 47 % luoa=733) LYMPHOCYTES RELATIVE PERCENT (BEAKER) (test 39 % hzip=517) MONOCYTES RELATIVE PERCENT (BEAKER) (test 9 % liff=734) EOSINOPHILS RELATIVE PERCENT (BEAKER) (test 4 % dhtw=972) BASOPHILS RELATIVE PERCENT (BEAKER) (test 1 % lkre=104) NEUTROPHILS ABSOLUTE COUNT (BEAKER) (test 2.95 K/ L 1.56-6.13 fsjs=785) LYMPHOCYTES ABSOLUTE COUNT (BEAKER) (test 2.43 K/ L 1.18-3.74 zkmm=794) MONOCYTES ABSOLUTE COUNT (BEAKER) (test 0.55 K/ L 0.24-0.36 dxiu=133) EOSINOPHILS ABSOLUTE COUNT (BEAKER) (test 0.26 K/ L 0.04-0.36 qjcv=162) BASOPHILS ABSOLUTE COUNT (BEAKER) (test 0.06 K/ L 0.01-0.08 zuzt=145) IMMATURE GRANULOCYTES-RELATIVE PERCENT (BEAKER) 0 % 0-1 (test pajq=6573) POCT-GLUCOSE [id number] 16:22:00 Test Item Value Reference Range Comments POC-GLUCOSE METER (BEAKER) 105 mg/dL 70-110 TESTED AT [facility] [address] (test nity=2338) [facility] [address]
--- NOTE | 2018-10-17 14:24 | RAD REPORT ---
EXAM DESCRIPTION: RAD - Femur Left - 10/17/2018 2:13 pm CLINICAL HISTORY: Left leg pain COMPARISON: None. FINDINGS: Left total knee prosthesis is in place. Skin elana are still present along the anterior midline soft tissues. No implant or bone acute or suspicious finding. Mild for age degenerative duran es are present at the left hip joint. No acute hip joint or femur finding. Partially imaged left jana pelvis shows no suspicious finding. No abnormal soft tissue finding. IMPRESSION: Negative left femur for acute or suspicious finding.
--- NOTE | 2018-10-17 14:27 | RAD REPORT ---
EXAM DESCRIPTION: RAD - Knee Left 3 View - 10/17/2018 2:13 pm CLINICAL HISTORY: Left knee pain, recent knee surgery COMPARISON: None. FINDINGS: Left total knee prosthesis is in place. No radiographic evidence for loosening. No fractur e of the washoe bone. No acute bone or joint finding identifiable. Skin elana are still present ant eriorly. Soft tissues are edematous. No air or foreign body in the soft tissues.No abnormal joint eff usion. IMPRESSION: Left total knee prosthesis in place with no acute bone or implant finding. No measurable joint effusion.
--- NOTE | 2018-10-17 14:53 | EKG ---
Test Date: 2018-10-17 Test Time: 13:37:22 Brimmer Blocker: MARILU MEASUREMENT RESULTS: Intervals: Rate: 105 NV: QRSD: 84 QT: 372 QTc: 491 [place]: P: NV: QRS: 8 T: -6 INTERPRETIVE STATEMENTS: Atrial fibrillation with rapid ventricular response Nonspecific ST abnormality, probably digitalis effect Abnormal ECG Compared to ECG 12/28/2017 10:47:32 ST (T wave) deviation now present Sinus rhythm no longer present Electronically Signed On 10-17-18 14:52:38 CDT by Yamil Zamarripa
--- NOTE | 2018-10-17 15:31 | ER ---
Nurse's Notes [facility] Name: Margarita Carl Age: 68 yrs Sex: Female : 1950 Arrival Date: 10/17/2018 Time: 13:26 Bed 23 Private MD: Diagnosis: Contusion of left knee Presentation: 10/17 13:27 Presenting complaint: EMS states: pt complains of L knee pain. Pt had L knee surgery 2 ca1 weeks ago. Transition of care: patient was not received from another setting of care. Onset of symptoms was October 17, 2018. Risk Assessment: Do you want to hurt yourself or someone else? Patient reports no desire to harm self or others. Initial Sepsis Screen: Does the patient meet any 2 criteria? No. Patient's initial sepsis screen is negative. Does the patient have a suspected source of infection? No. Patient's initial sepsis screen is negative. Care prior to arrival: None. 13:27 Method Of Arrival: EMS: [facility] ca1 13:27 Acuity: [facility] 3 ca1 Triage Assessment: 13:32 General: Appears in no apparent distress. uncomfortable, Behavior is calm, cooperative, ca1 appropriate for age. Pain: Complains of pain in left knee Pain currently is 10 out of 10 on a pain scale. Pain began several days ago. Historical: - Allergies: 13:32 Demerol; ca1 13:32 Adhesives; ca1 - PMHx: 13:32 Anxiety; zbigniew leg pain; bowel obstruction; dementia-early stages; Depression; ca1 Hypothyroidism; insomnia; Seizures; - PSHx: 13:32 Appendectomy; Cholecystectomy; Tonsillectomy; Adenoids; Carpal Tunnel Repair; stomach ca1 staple; 13:57 Tubal ligation; L knee, lapro; stomach reconstruction; Hernia repair; skin removal, two ca1 hernias repaired, wound vac, infection complications in abdomen; intestinal blockage; skin graft to abdomen, didnt take; epidural and steroid shots for pain in zbigniew legs; - Immunization history:: Flu vaccine is up to date. - Social history:: Smoking status: Patient/guardian denies using tobacco. - Ebola Screening: : No symptoms or risks identified at this time. Screenin:40 Abuse screen: Denies threats or abuse. Denies injuries from another. Nutritional ca1 screening: No deficits noted. Tuberculosis screening: No symptoms or risk factors identified. Fall Risk Fall in past 12 months (25 points). Secondary diagnosis (15 points) dementia, IV access (20 points). Ambulatory Aid- Crutches/Cane/Walker (15 pts). Gait- Impaired (20 pts.). Assessment: 13:40 General: Appears in no apparent distress. uncomfortable, Behavior is calm, cooperative, ca1 appropriate for age. Pain: Complains of pain in left knee Pain does not radiate. Pain currently is 10 out of 10 on a pain scale. Pain began several days ago. Neuro: Level of Consciousness is awake, alert, obeys commands, Oriented to person, place, time, situation. Cardiovascular: Heart tones S1 S2 present Capillary refill < 3 seconds Patient's skin is warm and dry. Rhythm is sinus tachycardia. Respiratory: Airway is patent Respiratory effort is even, unlabored, Respiratory pattern is regular, symmetrical, Breath sounds are clear bilaterally. GI: Abdomen is round non-distended, Bowel sounds present X 4 quads. Abd is soft and non tender X 4 quads. : No deficits noted. No signs and/or symptoms were reported regarding the genitourinary system. EENT: No deficits noted. No signs and/or symptoms were reported regarding the EENT system. Derm: Skin is intact, is healthy with good turgor, Skin is pink, warm \T\ dry. Musculoskeletal: Circulation, motion, and sensation intact. Capillary refill < 3 seconds, Range of motion: limited in left knee Jessica on on Left knee. Intact. NO redness, swelling or drainage noted. 14:30 Reassessment: Patient appears in no apparent distress at this time. Patient and/or ca1 family updated on plan of care and expected duration. Pain level reassessed. Patient is alert/active/playful, equal unlabored respirations, skin warm/dry/pink. 15:28 Reassessment: Patient appears in no apparent distress at this time. Patient is ca1 alert/active/playful, equal unlabored respirations, skin warm/dry/pink. Dr. Real at bedside. Vital Signs: 13:32 BP 106 / 81; Pulse 133; Resp 20; Temp 97.9; Pulse Ox 98% on R/A; Weight 107.05 kg; ca1 Height 5 ft. (152.40 cm); Pain 10/10; 14:08 BP 106 / 66; Pulse 118; Resp 17 S; Pulse Ox 94% on R/A; ca1 14:33 BP 127 / 76; Pulse 87; Resp 17; Temp 98(O); Pulse Ox 94% on R/A; ca1 15:00 BP 117 / 98; Pulse 116; Resp 17 S; Temp 98.1(O); Pulse Ox 95% on R/A; ca1 15:45 BP 115 / 89; Pulse 113; Resp 17 S; Temp 98(O); Pulse Ox 95% on R/A; ca1 13:32 Body Mass Index 46.09 (107.05 kg, 152.40 cm) ca1 ED Course: 13:26 Patient arrived in ED. ca1 13:27 Franklin Real MD is Attending Physician. rn 13:28 Triage completed. ca1 13:32 Arm band placed on right wrist. ca1 13:39 EKG done, by c2 tactical analysis technician. reviewed by Franklin Real MD. at1 13:40 Patient has correct armband on for positive identification. Placed in gown. Bed in low ca1 position. Call light in reach. Side rails up X 1. Pulse ox on. NIBP on. Warm blanket given. Pillow given. 13:40 No provider procedures requiring assistance completed. ca1 13:45 Inserted saline lock: 22 gauge in right antecubital area, using aseptic technique. ca1 Blood collected. 13:53 Katiuska Scruggs, RN is Primary Nurse. ca1 14:09 X-ray completed. Portable x-ray completed in exam room. Patient tolerated procedure sw well. 14:11 XRAY Knee LEFT 3 view In Process Unspecified. EDMS 14:11 XRAY Femur LEFT In Process Unspecified. EDMS 15:50 IV discontinued, intact, bleeding controlled, No redness/swelling at site. Pressure ca1 dressing applied. Administered Medications: 13:45 Drug: NS 0.9% 500 ml Route: IV; Rate: bolus; Site: right antecubital; ca1 14:00 Follow up: IV Status: Completed infusion ca1 13:54 CANCELLED (Pt Allergic to Meds. Notified Dr. Real): Demerol 25 mg IVP once ca1 13:57 Drug: Zofran 4 mg Route: IVP; Site: right antecubital; ca1 14:47 Follow up: Response: No adverse reaction; Nausea is decreased ca1 14:00 Drug: morphine 4 mg Route: IVP; Site: right antecubital; ca1 15:00 Follow up: Response: No adverse reaction; Pain is decreased ca1 15:31 CANCELLED (Duplicate Order): morphine 2 mg IVP once ca1 15:37 Drug: morphine 4 mg Route: IVP; Site: right antecubital; ca1 15:45 Follow up: Response: No adverse reaction; Pain is decreased ca1 Outcome: 15:31 Discharge ordered by . rn 15:50 Discharged to home via wheelchair, with significant other. ca1 15:50 Condition: stable 15:50 Discharge instructions given to patient, significant other, Instructed on discharge instructions, follow up and referral plans. Demonstrated understanding of instructions, follow-up care. 16:04 Patient left the ED. ca1 Signatures: Dispatcher [employer] EDMS Franklin Real MD MD rn Gonzales, Amanda, seasonal driver EKG Tat1 Abiola Marquez Cheryl, RN RN ca1 Corrections: (The following items were deleted from the chart) 14:06 13:40 Musculoskeletal: Circulation, motion, and sensation intact. Capillary refill < 3 ca1 seconds, Range of motion: limited in left knee Jessica on on Left knee ca1 14:07 13:40 Warm blanket given. ca1 ca1 14:09 14:08 BP 106 / 66; Pulse 136bpm; Resp 17bpm; Spontaneous; Pulse Ox 94% RA; ca1 ca1 15:30 14:00 morphine 2 mg IVP in right antecubital ca1 ca1 15:30 14:47 Response: No adverse reaction; Pain is decreased ca1 ca1
--- NOTE | 2018-10-17 15:32 | EDPHYS ---
Physician Documentation [facility] Name: Margarita Carl Age: 68 yrs Sex: Female : 1950 Arrival Date: 10/17/2018 Time: 13:26 Bed 23 Private MD: ED Physician Franklin Real HPI: 10/17 13:48 This 68 yrs old Female presents to ER via EMS with complaints of Knee Pain. rn 13:48 The patient presents with decreased range of motion, an injury, pain. The complaints rn affect the left knee. Onset: The symptoms/episode began/occurred just prior to arrival. Modifying factors: The symptoms are alleviated by nothing. the symptoms are aggravated by movement, bending knee. Severity of symptoms: At their worst the symptoms were moderate, in the emergency department the symptoms are unchanged. The patient has experienced similar episodes in the past. Reports had knee replacement surgery 2 weeks ago, got out of bed today and fell forward, onto left knee, wound did not open, no drainage, + moderate pain with movement, denies head injury or LOC, reports pain to left thigh pain, no deformity. . Historical: - Allergies: 13:32 Demerol; ca1 13:32 Adhesives; ca1 - PMHx: 13:32 Anxiety; zbigniew leg pain; bowel obstruction; dementia-early stages; Depression; ca1 Hypothyroidism; insomnia; Seizures; - PSHx: 13:32 Appendectomy; Cholecystectomy; Tonsillectomy; Adenoids; Carpal Tunnel Repair; stomach ca1 staple; 13:57 Tubal ligation; L knee, lapro; stomach reconstruction; Hernia repair; skin removal, two ca1 hernias repaired, wound vac, infection complications in abdomen; intestinal blockage; skin graft to abdomen, didnt take; epidural and steroid shots for pain in zbigniew legs; - Immunization history:: Flu vaccine is up to date. - Social history:: Smoking status: Patient/guardian denies using tobacco. - Ebola Screening: : No symptoms or risks identified at this time. Vital Signs: 13:32 BP 106 / 81; Pulse 133; Resp 20; Temp 97.9; Pulse Ox 98% on R/A; Weight 107.05 kg; ca1 Height 5 ft. (152.40 cm); Pain 10/10; 14:08 BP 106 / 66; Pulse 118; Resp 17 S; Pulse Ox 94% on R/A; ca1 14:33 BP 127 / 76; Pulse 87; Resp 17; Temp 98(O); Pulse Ox 94% on R/A; ca1 15:00 BP 117 / 98; Pulse 116; Resp 17 S; Temp 98.1(O); Pulse Ox 95% on R/A; ca1 15:45 BP 115 / 89; Pulse 113; Resp 17 S; Temp 98(O); Pulse Ox 95% on R/A; ca1 13:32 Body Mass Index 46.09 (107.05 kg, 152.40 cm) ca1 MDM: 13:27 Patient medically screened. rn 15:29 Differential diagnosis: closed fracture, contusion. Data reviewed: vital signs, nurses rn notes, lab test result(s), radiologic studies, plain films, and as a result, I will discharge patient. Counseling: I had a detailed discussion with the patient and/or guardian regarding: the historical points, exam findings, and any diagnostic results supporting the discharge/admit diagnosis, lab results, radiology results, the need for outpatient follow up, to return to the emergency department if symptoms worsen or persist or if there are any questions or concerns that arise at home. Response to treatment: the patient's symptoms have markedly improved after treatment, and as a result, I will discharge patient. Special discussion: I discussed with the patient/guardian in detail that at this point there is no indication for admission to the hospital. It is understood, however, that if the symptoms persist or worsen the patient needs to return immediately for re-evaluation. ED course: Negative plain films for fracture or hardware complication, will dc home. Has setup for rehab/[facility] tomorrow AM. . 10/17 13:29 Order name: CBC with Diff; Complete Time: 14:38 rn 10/17 13:29 Order name: Basic Metabolic Panel; Complete Time: 14:38 rn 10/17 13:28 Order name: XRAY Knee LEFT 3 view; Complete Time: 14:38 rn 10/17 13:28 Order name: XRAY Femur LEFT; Complete Time: 14:38 rn 10/17 13:29 Order name: IV Start; Complete Time: 13:55 rn 10/17 13:29 Order name: EKG; Complete Time: 13:29 rn 10/17 13:29 Order name: EKG - Nurse/Tech; Complete Time: 13:55 rn Administered Medications: 13:45 Drug: NS 0.9% 500 ml Route: IV; Rate: bolus; Site: right antecubital; ca1 14:00 Follow up: IV Status: Completed infusion ca1 13:54 CANCELLED (Pt Allergic to Meds. Notified Dr. Real): Demerol 25 mg IVP once ca1 13:57 Drug: Zofran 4 mg Route: IVP; Site: right antecubital; ca1 14:47 Follow up: Response: No adverse reaction; Nausea is decreased ca1 14:00 Drug: morphine 4 mg Route: IVP; Site: right antecubital; ca1 15:00 Follow up: Response: No adverse reaction; Pain is decreased ca1 15:31 CANCELLED (Duplicate Order): morphine 2 mg IVP once ca1 15:37 Drug: morphine 4 mg Route: IVP; Site: right antecubital; ca1 15:45 Follow up: Response: No adverse reaction; Pain is decreased ca1 Disposition: 10/17/18 15:31 Discharged to Home. Impression: Contusion of left knee. - Condition is Stable. - Discharge Instructions: Contusion, Knee Pain. - Medication Reconciliation Form, Thank You Letter, Antibiotic Education, Prescription Opioid Use form. - Follow up: Private Physician; When: As needed; Reason: Recheck today's complaints, Re-evaluation by your physician. - Problem is new. - Symptoms have improved. Signatures: Dispatcher [employer] EDFranklin Coronado MD MD rn Acob, SHYANN Harp RN ca1 Corrections: (The following items were deleted from the chart) 13:54 13:29 Demerol 25 mg IVP once ordered. rn ca1 15:31 13:55 morphine 2 mg IVP once ordered. ca1 ca1 15:31 14:08 morphine 2 mg IVP once given. ca1 ca1 15:31 15:30 morphine 2 mg IVP once ordered. ca1 ca1 16:04 15:31 10/17/2018 15:31 Discharged to Home. Impression: Contusion of left knee. ca1 Condition is Stable. Forms are Medication Reconciliation Form, Thank You Letter, Antibiotic Education, Prescription Opioid Use. Follow up: Private Physician; When: As needed; Reason: Recheck today's complaints, Re-evaluation by your physician. Problem is new. Symptoms have improved. rn
== END 2018-10-17 16:04 | disposition home or self-care (01) ==
LOC: ER 13:19
DX: S80.02XA Contusion of left knee, initial encounter (principal); X58.XXXA Exposure to other specified factors, initial encounter; Z96.652 Presence of left artificial knee joint; Z98.890 Other specified postprocedural states; Z88.6 Allergy status to analgesic agent
CPT/HCPCS: 93005; 85025; 80048; 36415; 73562; 73552; 96375; 96374; 99285; J2405

== ENCOUNTER 2020-11-30 17:09 | Emergency (ER) | payer OTHER ==
--- OUTSIDE RECORDS SUMMARY | 2020-11-30 17:40 | XMS REPORT | Continuity of Care Document ---
:1950 Author Organization [facility] t Address [address] [place] [address] Care Team Providers Name Role Phone Shahbaz Guerrero MD Primary Care Physician Doctor Unassigned, Name Attending Clinician Unavailable Trent SAGE Attending Clinician Carl SAGE S Attending Clinician Frederick BOOTHE Attending Clinician Nichelle SAGE L Attending Clinician Esther Levy CRNA Attending Clinician 1, Lab Attending Clinician Unavailable Maulik Mojica Attending Clinician NELI Attending Clinician Unavailable JUAN DAVID SANDERS Attending Clinician Unavailable Tyler Mcknight Attending Clinician Daren Steward MD Admitting Clinician Tyler Mcknight Admitting Clinician Problems Condition Condition Condition Status Onset Resolution Last Treating Co mments Source Name Details Category Date Date Treatment Clinician Date SBO Diagnosis Active 2016-01-25 Mem oria 01-02 10:25:00 l SBO 00:00: Javier 00 Active 01/03/2016 [facility] DECONDITIO Diagnosis Active 2013-06-28 Memoria DARIAN 1- 21:58:00 l 00:00: [place] DECONDITIO 00 DARIAN Active 05/31/2013 [facility] ABDOMINAL Diagnosis Active 2013-06-27 Memoria PAIN, 1-02 09:06:00 l HERNIA 00:00: [place] ABDOMINAL 00 PAIN, HERNIA Active 05/30/2013 [facility] Atrial Problem Active 2016-01-07 Memor ia fibrillati 09-13 02:09:23 l on Atrial 00:00: Javier (disorder) fibrillati 00 on (disorder) Active 09/14/2011 Problem 01/07/2016 [facility], [facility] AF - Problem Active 2011-09-23 Memor ia Atrial 09-13 08:25:12 l fibrillati AF - 00:00: Odell n on Atrial 00 fibrillati on Active 2 Problem 2 [facility] Central Problem Active 2016-01-07 Yosi brittanie venous 09-10 02:09:23 l cannula Central 00:00: Odell n insertion venous 00 (procedure cannula ) insertion (procedure ) Active 09/11/2011 Problem 01/07/2016 [facility], [facility] Insertion Problem Active 2016-01-07 Me moria of 09-10 02:09:23 l endotrache 00:00: Odell n al tube Insertion 00 (procedure of ) endotrache al tube (procedure ) Active 09/11/2011 Problem 01/07/2016 [facility] Central Problem Active 2011-09-23 Yosi brittanie line 09-10 08:25:12 l insertion Central 00:00: Herm coretta line 00 insertion Active 09/11/2011 Problem 09/23/2011 [facility] Endotrache Problem Active 2011-09-23 M emoria al 09-10 08:25:12 l intubation 00:00: Odell n Endotrache 00 al intubation Active 09/11/2011 Problem 09/23/2011 [facility] [D]Abdomin Problem Active 2016-01-07 M emoria al pain 09-09 02:09:23 l (context-d 00:00: Odell n ependent [D]Abdomin 00 category) al pain (context-d ependent category) Active 09/10/2011 Problem 01/07/2016 [facility] Low blood Problem Active 2016-01-07 Me moria pressure 4-14 02:09:23 l (disorder) Low 00:00: Odell n blood 00 pressure (disorder) Active 09/10/2011 Problem 01/07/2016 [facility], [facility] [D]Abdomin Problem Active 2011-09-23 M emoria al pain 4-14 08:25:12 l 00:00: [place] [D]Abdomin 00 al pain Active 09/10/2011 Problem 09/23/2011 [facility] Low blood Problem Active 2011-09-23 Me moria pressure 4-14 08:25:12 l Low 00:00: [place] blood 00 pressure Active 09/10/2011 Problem 09/23/2011 [facility] Hernia Problem Active 2016-01-07 Memor ia repair 4-13 02:09:23 l (procedure Hernia 00:00: Herm coretta ) repair 00 (procedure ) Active 09/09/2011 Problem 01/07/2016 [facility] Lysis of Problem Active 2016-01-07 Mem oria adhesions 4-13 02:09:23 l (procedure Lysis of 00:00: He rmann ) adhesions 00 (procedure ) Active 09/09/2011 Problem 01/07/2016 [facility] Panniculec Problem Active 2016-01-07 M emoria aditya 4-13 02:09:23 l (procedure 00:00: Odell n ) Panniculec 00 aditya (procedure ) Active 09/09/2011 Problem 01/07/2016 [facility] Recurrent Problem Active 2016-01-07 Me moria incisional 4- 02:09:23 l hernia of 00:00: [place] anterior Recurrent 00 abdominal incisional wall hernia of (disorder) anterior abdominal wall (disorder) Active 09/09/2011 Problem 01/07/2016 [facility] Hernia Problem Active 2011-09-23 Memor ia repair 4-13 08:25:12 l Hernia 00:00: Javier repair 00 Active 09/09/2011 Problem 09/23/2011 [facility] Lysis of Problem Active 2011-09-23 Mem oria adhesions 4-13 08:25:12 l Lysis of 00:00: Odell n adhesions 00 Active 09/09/2011 Problem 09/23/2011 [facility] Panniculec Problem Active 2011-09-23 M imelda aditya - 08:25:12 l 00:00: Javier Panniculec 00 aditya Active 09/09/2011 Problem 09/23/2011 [facility] Recurrent Problem Active 2011-09-23 Me moria ventral 09-08 08:25:12 l hernia 00:00: Javier Recurrent 00 ventral hernia Active 09/09/2011 Problem 09/23/2011 [facility] INCISIONAL Diagnosis Active 2011-09-28 Memoria HERNIA 08-25 21:46:00 l 553.21 00:00: Javier /[id number] INCISIONAL 00 HERNIA 553.21 /[id number] Active 08/26/2011 [facility] [id number] Diagnosis Active 2011-10-19 Memoria .01 06-24 16:19:00 l 00:00: Javier [id number] 00 .01 Active 06/24/2011 [facility] Primary Primary Problem Active Univers localized localized HL7.CCDAR2 ity of oste[place] it[place] of itis of Physici left knee left knee ans Acute pain Acute pain Problem Active U nivers of right of right HL7.CCDAR2 it y of knee knee [place] Physici ans Thyroid Thyroid Problem Active Univers disorder disorder HL7.CCDAR2 it y of [place] Physici ans Hormone Hormone Problem Active Univers replacemen replacemen HL7.CCDAR2 [place] (H[place] (HRT) Physici ans GERD GERD Problem Active Univers (gastroeso (gastroeso HL7.CCDAR2 ity of phageal phageal [place] reflux reflux Physici disease) disease) ans Overactive Overactive Problem Active U nivers bladder bladder HL7.CCDAR2 ity of [place] Physici ans Dementia Dementia Problem Active Unive rs HL7.CCDAR2 ity of [place] [facility] ans Memory Memory Problem Active Univers loss loss HL7.CCDAR2 ity of [place] [facility] ans Anxiety Anxiety Problem Active Univers HL7.CCDAR2 ity of [place] [facility] ans Depression Depression Problem Active U nivers , , HL7.CCDAR2 ity [place] d [place] depression depression an s type type Depression Problem Resolve 2016-01-07 Memoria - motion d 02:09:23 l (qualifier Odell n value) Depression - motion (qualifier value) Resolved Problem 01/07/2016 [facility] Hypothyroi Problem Resolve 2016-01-07 Memoria dism d 02:09:23 l (disorder) Odell n Hypothyroi dism (disorder) Resolved Problem 01/07/2016 [facility] Small Problem Resolve 2016-01-07 Yosi brittanie bowel d 02:09:23 l obstructio Small Amy nn n bowel (disorder) obstructio n (disorder) Resolved Problem 01/07/2016 [facility] Cholecyste Problem Active 2016-01-07 M emoria ctomy 02:09:23 l (procedure Odell n ) Cholecyste ctomy (procedure ) Active Problem 01/07/2016 [facility] Stapling Problem Active 2016-01-07 Mem oria of stomach 02:09:23 l (procedure Stapling He rmann ) of stomach (procedure ) Active Problem 01/07/2016 [facility] Hypertensi Problem Active 2016-01-07 M emoria ve 02:09:23 l disorder, Javier systemic Hypertensi arterial ve (disorder) disorder, systemic arterial (disorder) Active Problem 01/07/2016 [facility] 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 02:09:23 l n [place] (disorder) Idiopathic hypotensio n (disorder) Active Problem 01/07/2016 [facility] Peptic Problem Active 2016-01-07 Memor ia ulcer 02:09:23 l (disorder) Peptic Herm coretta ulcer (disorder) Active Problem 01/07/2016 [facility] Cholecyste Problem Active 2011-09-23 M emoria ctomy 08:25:12 l Javier Cholecyste ctomy Active Problem 09/23/2011 [facility] Gastric Problem Active 2011-09-23 Yosi brittanie stapling 08:25:12 l Gastric Javier stapling Active Problem 09/23/2011 [facility] HTN - Problem Active 2011-09-23 Memor ia Hypertensi 08:25:12 l on HTN - [place] Hypertensi on Active Problem 2 [facility] Idiopathic Problem Active 2011-09-23 M emoria hypotensio 08:25:12 l n Javier Idiopathic hypotensio n Active Problem 09/23/2011 [facility] PUD - Problem Active 2011-09-23 Memor ia Peptic 08:25:12 l ulcer PUD - Javier disease Peptic ulcer disease Active Problem 09/23/2011 [facility] INCISIONAL Diagnosis Active 2011-09-28 Memoria HERNIA 21:46:00 l [place] INCISIONAL HERNIA Active [facility] VENTRAL Diagnosis Active 2013-06-27 Me moria HERNIA NOS 09:06:00 l VENTRAL Javier HERNIA NOS Active [facility] PAIN IN Diagnosis Active 2013-06-28 Me moria LIMB 21:58:00 l PAIN IN Javier LIMB Active [facility] ILLNESS, Diagnosis Active 2016-01-25 M emoria UNSPECIFIE 10:25:00 l D ILLNESS, Odell n UNSPECIFIE D Active [facility] Mixed Mixed Diagnosis Active [facility] incontin[facility] incontinen Brie kes - ce urge ce urge Memoria and stress and stress [facility] Primary Primary Problem Active [facility] osteoarthr osteoarthr [place]es - itis of itis of Memoria left knee left knee l [facility] Urge Urge Problem Active [facility] incontinen incontinen Brie kes - ce of ce of Memoria urine urine l [facility] Primary Primary Problem Active [facility] osteoarthr osteoarthr Brie kes - itis of itis of Memoria right knee right knee l [facility] Allergies, Adverse Reactions, Alerts Allergy Allergy Status Severity Reaction(s) Onset Inactive Treating Comm ents Source Name Type Date Date Clinician Lyla Propensi Active [facility] to 02-09 [facility] - adverse 00:00: Medical reaction 00 [place] s Adhesive Propensi Active Not [facility] Tape ty to 02-09 allergic [facility] - adverse 00:00: to paper Medical reaction 00 tape. [place] s Adhesive Adverse Active Info Not [facility] t 1"x6yd Reaction Available [facility] Demerol Adverse Active Info Not [facility] Reaction Available [facility] pig Adverse Active Info Not [facility] tails Reaction Available [facility] haldol Adverse Active Info Not [facility] Reaction Available [facility] Demerol drug Active Univers TABS allergy [facility]y of [place] [facility] ans Haldol drug Active Univers allergy [facility]y of [place] [facility] Tape allergy Active Univers to ity of [facility] Physici ans Adhesive Adhesive Active MO^Modera Mem oria Tape Tape te l Javier Demerol Demerol Active Memoria HCl HCl l [place] NKFA NKFA Active Memoria l Javier Social History Social Habit Start Date Stop Date Quantity Comments Source Sex Assigned At [facility] Tobacco use and 2017-02-09 2017-02-09 Never used [facility] kes - exposure 00:00:00 00:00:00 [facility] Alcohol intake 2017-02-09 2017-02-09 Current [facility] es - 00:00:00 00:00:00 non-drinker of [facility] nter alcohol (finding) Social History 2016-01-03 2016-01-03 [facility] 08:10:47 08:10:47 Smoking Status Start Date Stop Date Source Never smoker [facility] edical [place] Medications Ordered Filled Start Stop Current Ordering Indication Dosage Frequency Signature Comments Components Source Medication Medication Date Date Medication? Clinician (SIG) Name Name lansoprazol Yes 30mg QD Take [address] [facility] e 9-14 by mouth [facility] - (PREVACID) 20:48: daily. Medic al 30 MG 46 Center capsule aspirin 81 Yes 81mg QD Take [address] MG EC 9-14 by mouth [facility] - tablet 20:48: daily. Medical 46 Center clonazePAM Yes .5mg Take 0.[address] (KLONOPIN) 9-14 mg by [facility] - 0.5 MG 20:48: mouth 2 Medical tablet 46 (two) Center times daily as needed for Anxiety. buPROPion Yes 300mg QD Take [address] (WELLBUTRIN 9-14 mg by [facility] - XL) 300 MG 20:48: mouth Medica l 24 hr 46 daily. Center tablet citalopram Yes 40mg QD Take [address] (CELEXA) 40 9-14 by mouth Luke s - MG tablet 20:48: daily. Medica l 46 Center traMADol Yes 100mg QD Take [address] (ULTRAM-ER) 9-14 mg by [facility] - 100 MG 24 20:48: mouth Medical hr tablet 46 daily. Center gabapentin Yes 300mg [id number] Take [address] (NEURONTIN) 9-14 [id number] mg by L ukes - 300 MG 20:48: 3D mouth 3 Medical capsule 46 (three) Center times daily. meloxicam Yes 7.5mg QD Take 7.[address] (MOBIC) 7.5 9-14 mg by [facility] - MG tablet 20:48: mouth Medical 46 daily. Center HYDROcodone Yes 1{tbl} Take [address] -acetaminop 9-14 tablet by [place] es - hen (NORCO 20:48: mouth Medica l 7.5-325) 46 every 6 Center 7.5-325 mg (six) per tablet hours as needed for Pain. TiZANidine Yes 4mg Q.[id number] Take [address] [facility] (ZANAFLEX) 9-14 [id number] by mouth 3 [facility] - 4 MG 20:48: 3D (three) Medical capsule 46 times Center daily. memantine Yes 10mg Q.5D Take [address] (NAMENDA) 9-14 by mouth 2 Luke s - 10 MG 20:48: (two) Medical tablet 46 times Center daily. Missing or Yes laxative . [facility] Non-Formula 9-14 [facility] - ry 20:48: Medical Medication 46 Center tolterodine Yes 4mg QD Take [address] (DETROL LA) 9-14 by mouth Luke s - 4 MG 24 hr 20:48: daily. Medic al capsule 46 Center levothyroxi Yes 75ug Take [address] ne 9-14 mcg by [facility] - (SYNTHROID, 20:48: mouth Medic al LEVOTHROID) 46 Every Center 75 MCG morning on tablet an empty stomach. tolterodine No 4 mg, 1 Mem oria 01-04 cap, l 14:00: Route: PO, Javier 00 Drug form: CAP, Daily, Dosing Weight 105.625, kg, Start date: 01/05/16 9:00:00 CDT, Duration: 30 day, Stop date: 02/03/16 9:00:00 CDT Synthroid No Notes: Memori a - Take 1 l 14:00: hour [place] 00 before or 2 hours after meal; Enteral feeds may interefere with the absorption of this medication .(Same as:Levothr oid, Synthroid) Bupropion No 150 mg, 1 Mem oria 8- tab, l 14:00: Route: PO, [place] 00 Drug form: ERTAB, Daily, Dosing Weight 105.625, kg, Start date: 01/05/16 9:00:00 CDT, Duration: 30 day, Stop date: 02/03/16 9:00:00 CDT Citalopram No Notes: Memor ia 01-04 (Same As: l 14:00: CeleXA) Trazodone No Notes: Memori a Hydrochlori 01-04 (Same As: l de 100 MG 02:00: Desyrel) Herm coretta Oral Tablet tizanidine No Notes: Memor ia 01-04 (Same As: l 02:00: Zanaflex) tizanidine Yes 4 mg = 1 Mem oria 4 mg oral 01-03 tab, PO, l tablet 23:42: Q12H, 0 Refill(s) gabapentin No Notes: Memor ia 300 MG Oral 01-03 (Same as: l Capsule 22:00: Neurontin) Bisacodyl No 10 mg, 2 Yosi brittanie 01-03 tab, l 20:49: Route: PO, [place] Drug form: ECTAB, Daily, Dosing Weight 105.625, kg, PRN Constipati on, Start date: 01/04/16 15:49:00 CDT, Duration: 30 day, Stop date: 02/03/16 15:48:00 CDT Clonazepam No Notes: Memor ia 01-03 (Same As: l 14:00: KlonoPIN) Tylenol No Notes: Max Yosi brittanie 8-08 acetaminop l 07:51: hen = Javier 4000mg/day (4 gm/day). (Same as: Tylenol) Tylenol No Notes: Do Memor ia 8-08 not exceed l 03:02: 4 gm/day. Javier 00 (Same as: Tylenol) Benadryl No Notes: Memoria - (Same as: l 02:02: Benadryl) Javier phenol No Notes: Memoria 01-03 Chlorasept l 01:57: ic [place] 00 (Same as: Chlorasept ic, Sore Throat [place]) WASTE: F/P - Black; E - Municipal Trash Bin Saline No Notes: Memoria Flush 0.9% 01-02 (Same as: l 21:00: BD Javier Posiflush) Lidocaine No Notes: Memori a Hydrochlori 01-02 Preservati l de 10 MG/ML 19:00: ve free. He rmann Injectable (Same as: Solution Xylocaine MPF) Sodium No 25 mL, Memoria Chloride 01-02 Route: l 0.9% IV 18:57: IVP, Start Herm coretta date: 01/03/16 13:57:00 CDT, Duration: 30 day, Stop date: 02/02/16 13:56:00 CDT, PRN Line Flush BD Normal No Notes: Memori a Saline 01-02 (Same as: l Flush 18:57: BD Javier 00 Posiflush) BD Normal No Notes: Memori a Saline 01-02 (Same as: l Flush 18:56: BD Javier Posiflush) Saline No 10 mL, Memoria Flush 0.9% 01-02 Route: l 18:52: IVP, Drug [place] Form: INJ, Dosing Weight 105.625, kg, PRN, PRN Line Flush, Start date: 01/03/16 13:52:00 CDT, Duration: 30 day, Stop date: 02/02/16 13:51:00 CDT BD Normal No Notes: Memori a Saline 01-02 (Same as: l Flush 18:35: BD [place] Posiflush) Sodium No 25 mL, Memoria Chloride 01-02 Route: l 0.9% IV 18:35: IVP, Start Herm coretta date: 01/03/16 13:35:00 CDT, Duration: 30 day, Stop date: 02/02/16 13:34:00 CDT, PRN Line Flush D5W 1/2NS + No Notes: Yosi brittanie KCL 20mEq/L 01-02 PREMIX IV l 1000ml 18:31: - Do Not [place] (Premix) 00 Alter 1,000 mL WASTE: F/P - Sink; E - Municipal Trash Bin Saline No 10 mL, Memoria Flush 0.9% 01-02 Route: l 18:30: IVP, Drug [place] Form: INJ, Dosing Weight 105.625, kg, PRN, PRN Line Flush, Start date: 01/03/16 13:30:00 CDT, Duration: 30 day, Stop date: 02/02/16 13:29:00 CDT Morphine No Notes: Memoria 01-02 (Same l 18:26: as:MORPhin [place] 00 e Sulfate) Pepcid No Notes: Memoria 01-02 (Same as: l 14:00: Pepcid) [place] 00 Can be dilute in 5-10cc NS IVP: Slow IV push over at least 2 minutes. Protonix No 40 mg, Memoria 01-02 Route: l 14:00: IVP, Javier 00 Daily, Dosing Weight 105.625, kg, Patient is NPO, Start date: 01/03/16 9:00:00 CDT, Duration: 30 day, Stop date: 02/01/16 9:00:00 CDT Enoxaparin No Notes: Memor ia 01-02 (Same as: l 09:00: Lovenox) [place] 00 Citalopram Yes 60 mg, PO, M emoria 8-07 Daily, 0 l 08:55: Refill(s) Javier 00 tolterodine Yes 4 mg = 1 Me moria 4 mg oral 8-07 cap, PO, l capsule, 08:55: Daily, # Amy nn extended 00 30 cap, 1 release Refill(s) gabapentin Yes 300 mg = 1 M emoria 300 MG Oral 8-07 cap, PO, l Capsule 08:55: QID, 0 [place] 00 Refill(s) Hydroxyzine Yes 25 mg = 1 M emoria Hydrochlori 07 cap, PO, l de 25 MG 08:55: Bedtime, Amy nn Oral 00 PRN Capsule Insomnia, 0 Refill(s) Trazodone Yes 100 mg = 1 Me moria Hydrochlori 07 tab, PO, l de 100 MG 08:55: Bedtime, # He rmann Oral Tablet 00 30 tab, 0 Refill(s) tizanidine No 8 mg = 2 Mem oria 4 mg oral 01-02 tab, PO, l tablet 08:55: Q8H, # 180 Amy nn 00 tab, 0 Refill(s) meloxicam No 7.5 mg = 1 Me moria 7.5 mg oral 807 tab, PO, l tablet 08:55: Daily, # Javier 00 30 tab, 0 Refill(s) Acetaminoph No 1 tab, PO, Memoria en 325 MG / 01-02 Q6H, PRN l Hydrocodone 08:55: Pain, # 60 Javier Bitartrate 00 tab, 0 7.5 MG Oral Refill(s) Tablet bisacodyl 5 Yes 10 mg = 2 M emoria mg oral 01-02 tab, PO, l enteric 08:55: Daily, PRN Herm coretta coated 00 Constipati tablet on, # 20 tab, 0 Refill(s) Bupropion Yes 150 mg, Memor ia 07 PO, 0 l 08:55: Refill(s) [place] 00 clonazePAM No 0.5 mg = 1 M emoria 0.5 mg oral 07 tab, PO, l tablet 08:55: Q6H, PRN Javier 00 Anxiety, 0 Refill(s) Saline No Notes: Memoria Flush 0.9% 01-02 (Same as: l 08:12: BD Javier 00 Posiflush) Ondansetron No Notes: Yosi brittanie 01-02 (Same as: l 08:12: Zofran) [place] 00 MEDICATION WASTE Product Size: 4 mg Product Wasted: ___ mg Morphine No Notes: Memoria 8-07 (Same l 08:12: as:MORPhin Javier 00 e Sulfate) Sodium No 1,000 mL, Memori a Chloride 01-02 Rate: 125 l 0.154 08:12: ml/hr, Javier MEQ/ML 00 Infuse Injectable over: 8 Solution hr, Route: IV, Dosing Weight 105.625 kg, Total Volume: 1,000, Start date: 01/03/16 3:12:00 CDT, Duration: 30 day, Stop date: 02/02/16 3:11:00 CDT Lidoderm 5% Yes Surainder 1 patch, Memoria topical 1-23 K Ajmani TOP, l film 15:46: Daily, [place] (patch) 00 Remove after 12 hours, # 30 patch, 0 Refill(s), given to patientRem ove after 12 hours citalopram Yes Surainder 20 mg = 1 Memoria 20 mg oral 1-23 K Ajmani tab, PO, l tablet 15:46: BID-After Odell n 00 Meals, # 60 tab, 0 Refill(s), given to patient rivastigmin Yes Cyndi Canales = 1 patch, Memoria e 4.6 mg/24 1-23 [place]ig[place]u TOP, l hr 14:19: Daily, # [place] transdermal 00 30 patch, film, 0 extended Refill(s) release mirtazapine Yes Cyndi Canales 7.5 mg = Memoria 15 mg oral -23 Anigb[place]u 0.5 tab, l tablet 14:19: PO, Javier 00 Bedtime, # 30 tab, 0 Refill(s) Exelon No Dawson 4.6 mg, 1 Memor ia 1-20 Tomas patch, l 15:00: ichcinthia Route: [place] 00 TOP, Drug form: ERFILM, Daily, Start date: 06/17/13 9:00:00, Duration: 30 day, Stop date: 07/16/13 9:00:00Sam e as Exelon "Remove old patch before applicatio n of new patch" Lidoderm 5% No Cyndi Parker 1 patch, Memoria topical 1-20 [place]ig[place]u Route: l film 15:00: TOP, [place] (patch) 00 Daily, Drug form: FILM, Start date: 06/17/13 9:00:00, Duration: 30 day, Stop date: 07/16/13 9:00:00, Remove after 12 hoursRemov e after 12 hoursApply only once for up to 12 hours in a 24-hour period (12 hours on and 12 hours off). (Same as: Lidoderm) "Remove old patch before applicatio n of new patch" CeleXA No Dawson 20 mg, 1 Memori a 1-20 Tomas tab, l 14:30: ichcinthia Route: PO, Her bolton 00 Drug form: TAB, BID-After Meals, Start date: 06/17/13 8:30:00, Duration: 30 day, Stop date: 07/16/13 13:00:00(S nereida As: CeleXA) Remeron No Cyndi Parker 7.5 mg, M emoria 1-19 Anig[place]u 0.5 tab, l 03:00: Route: PO, Javier 00 Drug form: TAB, Bedtime, Start date: 06/15/13 21:00:00, Duration: 30 day, Stop date: 07/14/13 21:00:00(S nereida as:Remeron ) Singulair No Cyndi Parker 10 mg, 1 Memoria 1-18 [place] tab, l 03:00: Route: PO, Javier 00 Drug form: TAB, Bedtime, Start date: 06/14/13 21:00:00, Duration: 30 day, Stop date: 07/13/13 21:00:00(S nereida as:Singula ir) fluticasone No Cyndi Parker 2 Memoria nasal 0.05 1-17 [place]ig[place]u inhalation l mg/inh 15:00: , Route: [place] spray 00 NASAL, Drug Form: SPRY, BID, Start date: 06/14/13 9:00:00, Duration: 30 day, Stop date: 07/13/13 17:00:00(S nereida as: Flonase) Claritin No Cyndi Parker 10 mg, 1 Memoria 1-17 [place] tab, l 15:00: Route: PO, [place] 00 Drug form: TAB, Daily, Start date: 06/14/13 9:00:00, Duration: 30 day, Stop date: 07/13/13 9:00:001 hr before meals (Same as: Claritin) polyethylen No Cyndi Parker 17 gm, 1 Memoria e glycol 17 Anigb[place]u pkt, l 3350 15:00: Route: PO, Javier 00 Drug form: PWDR, Daily, Dosing Weight 105.455, kg, Start date: 06/14/13 9:00:00, Duration: 30 day, Stop date: 07/13/13 9:00:00Dis solve in 8 oz of water or juice. (Same as: Miralax) Senokot No Cyndi Parker 8.6 mg, 1 Memoria 06-14 [place] tab, l 15:00: Route: PO, Javier 00 Drug form: TAB, BID, Start date: 06/14/13 9:00:00, Duration: 30 day, Stop date: 07/13/13 17:00:00(S nereida as: Senokot) PROzac No Cyndi Parker 40 mg, 2 M emoria 06-14 [place] cap, l 15:00: Route: NG, Drug form: CAP, Daily, Start date: 06/14/13 9:00:00, Duration: 30 day, Stop date: 07/13/13 9:00:00(Sa me as: Prozac, Sarafem) Mycelex No Cyndi Parker 10 mg, 1 Memoria Shaina 06-14 [place] lozenge, l 14:00: Route: Javier 00 MUCOUS MEM, Drug form: WINSTON, TID, Start date: 06/14/13 8:00:00, Duration: 30 day, Stop date: 07/13/13 21:00:00(S nereida As: Mycelex Shaina) Levothroid No Cyndi Parker 50 M emoria -17 [place] microgram, l 12:30: 1 tab, [place] 00 Route: PO, Drug form: TAB, [id number], Start date: 06/14/13 6:30:00, Duration: 30 day, Stop date: 07/13/13 6:30:00Tak e 1 hour before or 2 hours after meal; Enteral feeds may interefere with the absorption of this medication .(Same as:Levothr oid, Synthroid) vancomycin No Cyndi Parker 750 mg, Memoria 1-17 [place]ig[place] 150 mL, l 09:00: Route: Javier 00 IVPB, Drug form: SOLN, [id number], Start date: 06/14/13 3:00:00, Duration: 30 day, Stop date: 07/13/13 18:00:00Sa me as: Vancocin Lovenox No Cyndi Parker 40 mg, 0.4 Memoria 1-17 [place] mL, Route: l 05:00: SUB-Q, Javier 00 Drug form: INJ, [id number], Start date: 06/13/13 23:00:00, Duration: 30 day, Stop date: 07/12/13 23:00:00(S nereida as: Lovenox) Restoril No Cyndi Parker 15 mg, 1 Memoria 1-17 [place] cap, l 03:37: Route: PO, [place] 00 Drug form: CAP, Bedtime, PRN Sleep, Start date: 06/13/13 21:37:00, Duration: 30 day, Stop date: 07/13/13 21:36:00(S nereida As: Restoril) Ativan No Cyndi Parker 1 mg, 2 Me moria 1-17 [place] tab, l 03:31: Route: PO, Javier 00 Drug form: TAB, Q4H, PRN Anxiety, Start date: 06/13/13 21:31:00, Stop date: 07/13/13 21:30:00(S nereida as: Ativan) acetaminoph No Cyndi Parker 1 tab, Memoria en-hydrocod 1-17 [place]ig[place]u Route: PO, l one 325 03:01: Drug Form: Herm coretta mg-5 mg 00 TAB, oral tablet Dosing Weight 105.455, kg, Q4H, PRN Pain Score 1-3, Start date: 06/13/13 21:01:00, Duration: 30 day, Stop date: 07/13/13 21:00:00(S nereida as: [place] 325/5) Do not exceed 4gm/day of acetaminop hen. acetaminoph No Cyndi Parker 650 mg, 2 Memoria en -17 [place] tab, l 03:01: Route: PO, Javier 00 Drug form: TAB, Q4H, Dosing Weight 105.455, kg, PRN Pain Score 1-3, Start date: 06/13/13 21:01:00, Duration: 30 day, Stop date: 07/13/13 21:00:00Do not exceed 4 gm/day. (Same as: Tylenol) Saline No Cyndi Parker 3 mL, Yosi brittanie Flush 0.9% 06-14 [place] Route: l 03:01: IVP, Drug Form: INJ, Dosing Weight 105.455, kg, Q8H, PRN Line Flush, Start date: 06/13/13 21:01:00, Duration: 30 day, Stop date: 07/13/13 21:00:00, Administer at least once every 8 hoursAdmin ister at least once every 8 hours(Same as: BD Posiflush) bisacodyl No Cyndi Parker 10 mg, 1 Memoria -17 [place] supp, l 03:01: Route: ID, Javier 00 Drug form: SUPP, Bedtime, Dosing Weight 105.455, kg, PRN Constipati on, Start date: 06/13/13 21:01:00, Duration: 30 day, Stop date: 07/13/13 21:00:00(S nereida As: Dulcolax, Bisco-Lax) temazepam Yes Surainder 15 mg = 1 Memoria 15 mg oral 1-16 K Ajmani cap, PO, l capsule 23:55: Bedtime, Odell n 00 Sleep, # 5 cap, 0 Refill(s) vancomycin Yes Surainder 1,054.55 Memoria 750 mg 1-16 K Ajmani mg, IV, l intravenous 23:55: Q24H, # 14 Javier injection 00 bag, 0 Refill(s), called to pharmacy senna 8.6 Yes Surainder 8.6 mg = 1 Memoria mg oral 1-16 K Ajmani tab, PO, l tablet 23:55: BID, # 36 Odell n 00 tab, 0 Refill(s) LORazepam 1 Yes Surainder 1 mg = 1 Memoria mg oral 1-16 K Ajmani tab, PO, l tablet 23:55: Q4H, Javier 00 Anxiety, # 10 tab, 0 Refill(s) loratadine Yes Surainder 10 mg = 1 Memoria 10 mg oral 1-16 K Ajmani tab, PO, l tablet 23:55: Daily, # [place] 00 20 tab, 0 Refill(s) fluticasone Yes Surainder 100 M emoria nasal 0.05 1-16 K Ajmani microgram l mg/inh 23:55: = 2 [place] spray 00 inhalation , NASAL, BID, # 1 ea, 0 Refill(s) enoxaparin Yes Surainder 40 mg = Memoria 40 mg/0.4 1-16 K Ajmani 0.4 mL, l mL 23:55: SUB-Q, [place] subcutaneou 00 Q24H, # 30 s solution mL, 0 Refill(s) clotrimazol Yes Surainder 10 mg = 1 Memoria e 10 mg 1-16 K Ajmani lozenge, l oral 23:55: MUCOUS [place] lozenge 00 MEM, TID, # 90 lozenge, 0 Refill(s) clonazePAM Yes Surainder 0.5 mg = 1 Memoria 0.5 mg oral 1-16 K Ajmani tab, PO, l tablet 23:55: Daily, # Javier 00 30 tab, 0 Refill(s), called to pharmacy acetaminoph Yes Surainder 650 mg = 2 Memoria en 325 mg 1-16 K Ajmani tab, PO, l oral tablet 23:55: Q6H, Pain, Javier 00 # 50 tab, 0 Refill(s), called to pharmacy acetaminoph Yes Surainder 1 tab, PO, Memoria en-hydrocod 1-16 K Ajmani Q4H, Pain, l one 325 23:55: # 12 tab, Amy nn mg-10 mg 00 0 oral tablet Refill(s), called to pharmacy tolterodine Yes Surainder 4 mg = 1 Memoria 4 mg oral 1-16 K Ajmani cap, PO, l capsule, 23:55: Daily, # Amy nn extended 00 30 cap, 0 release Refill(s), called to pharmacy Lovenox No Surainder 40 mg, 0.4 Memoria 1-15 K Ajmani mL, Route: l 05:00: SUB-Q, [place] 00 Drug form: INJ, Q24H, Start date: 06/11/13 23:00:00, Duration: 30 day, Stop date: 07/10/13 23:00:00(S nereida as: Lovenox) acetaminoph No Surainder 1 tab, Memoria en-hydrocod 1-15 K Ajmani Route: PO, l one 325 00:45: Drug Form: Herm coretta mg-5 mg 00 TAB, oral tablet ONCALL, PRN Pain, Start date: 06/11/13 18:45:00, Duration: 30 day, Stop date: 07/11/13 18:44:00(S nereida as: [place] 325/5) Do not exceed 4gm/day of acetaminop hen. Claritin No Surainder 10 mg, 1 Memoria 1-14 K Ajmani tab, l 15:00: Route: PO, Javier 00 Drug form: TAB, Daily, Start date: 06/11/13 9:00:00, Duration: 30 day, Stop date: 07/10/13 9:00:001 hr before meals (Same as: Claritin) Senokot No Surainder 8.6 mg, 1 Memoria 1-14 K Ajmani tab, l 15:00: Route: PO, [place] 00 Drug form: TAB, BID, Start date: 06/11/13 9:00:00, Duration: 30 day, Stop date: 07/10/13 17:00:00(S nereida as: Senokot) Mycelex No Surainder 10 mg, 1 M emoria Shaina 1-14 K Ajmani lozenge, l 03:00: Route: [place] 00 MUCOUS MEM, Drug form: WINSTON, TID, Start date: 06/10/13 21:00:00, Duration: 30 day, Stop date: 07/10/13 12:00:00(S nereida As: Mycelex Shaina) Singulair No Surainder 10 mg, 1 Memoria 1-14 K Ajmani tab, l 03:00: Route: PO, [place] 00 Drug form: TAB, Bedtime, Start date: 06/10/13 21:00:00, Duration: 30 day, Stop date: 07/09/13 21:00:00(S nereida as:Singula ir) acetaminoph No Surainder 1 tab, Memoria en-hydrocod 1-14 K Ajmani Route: PO, l one 325 02:32: Drug Form: Herm coretta mg-10 mg 00 TAB, Q4H, oral tablet PRN Pain, Start date: 06/10/13 20:32:00, Duration: 30 day, Stop date: 07/10/13 20:31:00Do not exceed 4gm/day of acetaminop hen. (Same as: [place] 325/10) Ativan No Surainder 1 mg, 1 Mem oria 1-14 K Ajmani tab, l 02:32: Route: PO, Javier 00 Drug form: TAB, Q4H, PRN Anxiety, Start date: 06/10/13 20:32:00, Duration: 30 day, Stop date: 07/10/13 20:31:00(S nereida as: Ativan) potassium No Surainder 20 mEq, Memoria chloride 1-13 K Ajmani 100 mL, l 03:00: Route: Javier 00 IVPB, Drug form: INJ, Q2H, Start date: 06/09/13 21:00:00, Duration: 2 doses or times, Stop date: 06/09/13 23:00:00(S nereida as: KCL) Infuse no faster than 10 mEq/hr if given peripheral ly. fluticasone No Surainder 2 M emoria nasal 0.05 1-11 K Ajmani inhalation l mg/inh 15:00: , Route: [place] spray 00 NASAL, Drug Form: SPRY, BID, Start date: 06/08/13 9:00:00, Duration: 30 day, Stop date: 07/07/13 17:00:00(S nereida as: Flonase) Benadryl No Surainder 25 mg, 0.5 Memoria 1-11 K Ajmani mL, Route: l 03:00: IV, Drug form: INJ, Q12H, Start date: 06/07/13 21:00:00, Stop date: 07/07/13 9:00:00(Sa me as: Benadryl) amino acids No Surainder 2,000 mL, Memoria 5% 1-11 K Ajmani Rate: 75 l w/Lytes/D15 03:00: ml/hr, Herm coretta W 2000ml 00 Infuse (clinimixE) over: 26.8 2,000 mL + hr, Route: thiamine IV, Dosing 100 mg + Weight folic acid 105.455 1 mg + kg, Total phyto Volume: 2,011.3, Start date: 06/07/13 21:00:00, Duration: 30 day, Stop date: 07/07/13 20:59:00Sa me as: Clinimix E 10/10 Standard electrolyt es for this formulatio n listed on bag fat No Surainder 250 mL, Memor ia emulsion, 1-11 K Ajmani 31.25 l intravenous 03:00: ml/hr, Herm Route: IV, Drug Form: INJ, Daily, Start date: 06/07/13 21:00:00, Duration: 30 day, Stop date: 07/06/13 21:00:00(S nereida as: Intralipid , Liposyn) potassium No Surainder 40 mEq, Memoria chloride 1-11 K Ajmani 200 mL, l 02:02: Route: Javier 00 IVPB, Drug form: INJ, ONCE, Start date: 06/07/13 20:02:00, Stop date: 06/07/13 20:02:00(S nereida as: KCL) Infuse no faster than 10 mEq/hr if given peripheral ly. Lasix No Surainder 40 mg, 4 Mem oria 1-11 K Ajmani mL, Route: l 02:01: IV, Drug form: INJ, ONCE, Start date: 06/07/13 20:01:00, Stop date: 06/07/13 20:01:00(S nereida as: Lasix) nystatin No Surainder nystatin Memoria susp 30 1-11 K Ajmani susp 30 l ml+lidocain 02:00: ml+lidocai e visc 30 00 ne visc 30 ml ml, 5 mL, Drug form: MISC, Route: S&SWALLOW, Q3H-WA, 06/07/13 20:00:00, Stop date: 07/07/13 17:00:00 Lovenox No Surainder 100 mg, 1 Memoria 1-11 K Ajmani mL, Route: l 02:00: SUB-Q, Drug form: INJ, [id number], Start date: 06/07/13 20:00:00, Duration: 30 day, Stop date: 07/06/13 20:00:00Nu rse to ensure documentat ion of patient education per [facility] policy. (Same as: Lovenox) Diflucan No Surainder 200 mg, M emoria 1-11 K Ajmani 100 mL, l 02:00: Route: IVPB, Drug form: INJ, [id number], Start date: 06/07/13 20:00:00, Duration: 30 day, Stop date: 07/06/13 20:00:00(S nereida as: Diflucan) Do not refrigerat e amino acids No Surainder 1,000 mL, Memoria 4.25% 1-10 K Ajmani Rate: 90 l w/Lytes/D5W 18:26: ml/hr, Herm coretta 1000ml 00 Infuse (clinimixE) over: 11.1 1,000 mL hr, Route: IV, Dosing Weight 105.455 kg, Total Volume: 1,000, Start date: 06/07/13 12:26:00, Stop date: 06/08/13 21:00:00Sa me as: ClinimixE vancomycin No Surainder 750 mg, Memoria 1-09 K Ajmani 150 mL, l 21:00: Route: [place] 00 IVPB, Drug form: SOLN, [id number], Start date: 06/06/13 15:00:00, Duration: 30 day, Stop date: 07/06/13 3:00:00Sam e as: Vancocin Maxipime + No Surainder 2 gm, M emoria Sodium 1-09 K Ajmani Route: l Chloride 20:00: IVPB, [place] 0.9% IV 100 00 [id number], mL Start date: 06/06/13 14:00:00, Duration: 30 day, Stop date: 07/06/13 6:00:00(Sa me as: Maxipime) Tylenol No Surainder 650 mg, 1 Memoria 1-09 K Ajmani supp, l 19:03: Route: ID, [place] 00 Drug form: SUPP, Q4H, PRN Pain/Fever , Start date: 06/06/13 13:03:00, Stop date: 07/06/13 13:02:00Ma x acetaminop hen = 4000 mg/day (4 gm/day). (Same as: Tylenol) Lasix No Surainder 40 mg, 4 Mem oria 1-09 K Ajmani mL, Route: l 19:00: IV, Drug form: INJ, ONCALL, Start date: 06/06/13 13:00:00, Duration: 30 day, Stop date: 07/06/13 12:59:00(S nereida as: Lasix) Lasix No Surainder 40 mg, 4 Mem oria 1-09 K Ajmani mL, Route: l 18:03: IV, Drug form: INJ, ONCE, Start date: 06/06/13 12:03:00, Stop date: 06/06/13 12:03:00(S nereida as: Lasix) potassium No Surainder 40 mEq, Memoria chloride 1-09 K Ajmani 200 mL, l 18:03: Route: [place] 00 IVPB, Drug form: INJ, ONCE, Start date: 06/06/13 12:03:00, Stop date: 06/06/13 12:03:00(S nereida as: KCL) Infuse no faster than 10 mEq/hr if given peripheral ly. Ativan No Surainder 1 mg, 0.5 M emoria 1-09 K Ajmani mL, Route: l 06:00: IV, Drug [place] 00 form: INJ, Q6H, Start date: 06/06/13 0:00:00, Duration: 30 day, Stop date: 07/05/13 18:00:00(S nereida as: Ativan) Venofer + No Surainder 100 mg, 5 Memoria Sodium 1-09 K Ajmani mL, Route: l Chloride 03:00: IV, Q24H, Herm coretta 0.9% IV 100 00 Start mL date: 06/05/13 21:00:00, Duration: 30 day, Stop date: 07/04/13 21:00:00 amino acids No Surainder 1,000 mL, Memoria 4.25% -09 K Ajmani Rate: 90 l w/Lytes/D5W 02:40: ml/hr, Herm coretta 1000ml 00 Infuse (clinimixE) over: 11.1 1,000 mL hr, Route: IV, Dosing Weight 105.455 kg, Total Volume: 1,000, Start date: 06/05/13 20:40:00, Duration: 30 day, Stop date: 07/05/13 20:39:00Sa me as: ClinimixE ceFAZolin No Cyndi Rubin 2 gm, 100 Memoria -09 Stokes mL, Route: l 02:00: IVPB, Drug [place] form: INJ, [id number], Start date: 06/05/13 20:00:00, Duration: 30 day, Stop date: 07/05/13 12:00:00Sa me as: Ancef promethazin No Scottie 6.25 mg, M emoria e 06-05 Haris Route: l 23:43: Walker IVPB, Javier 00 ONCE, Dosing Weight 105.455, kg, PRN Nausea & Vomiting, Start date: 06/05/13 17:43:00 ondansetron No Scottie 4 mg, 2 Me moria 06-05 Haris mL, Route: l 23:43: Walker IVP, Drug Odell n 00 form: INJ, ONCE, Dosing Weight 105.455, kg, PRN Nausea & Vomiting, Start date: 06/05/13 17:43:00(S nereida as: Zofran) naloxone No Scottie 0.04 mg, Yosi brittanie 06-05 Haris 0.1 mL, l 23:43: Walker Route: Javier 00 IVP, Drug form: INJ, Q2MIN, Dosing Weight 105.455, kg, PRN Narcotic Reversal, Start date: 06/05/13 17:43:00, Duration: 8 doses or times, Stop date: 06/05/13 23:00:00(S nereida as: Narcan) flumazenil No Scottie 0.2 mg, 2 M emoria 06-05 Haris mL, Route: l 23:43: Walker IVP, Drug Odell n 00 form: INJ, PRN, Dosing Weight 105.455, kg, PRN Benzodiaze pine Reversal, Initial dose, Start date: 06/05/13 17:43:00, Stop date: 06/05/13 23:00:00(S nereida as: Romazicon) meperidine No Scottie 12.5 mg, Me moria 06-05 Haris Route: l 23:43: Walker IVP, [place] 00 Q30Min, Dosing Weight 105.455, kg, PRN Other -See Comment, For shivering, Start date: 06/05/13 17:43:00, Duration: 2 doses or times, Stop date: Limited # of times labetalol No Scottie 10 mg, 2 Mem oria 06-05 Haris mL, Route: l 23:43: Walker IVP, Drug Odell n 00 form: INJ, Q5Min, Dosing Weight 105.455, kg, PRN Elevated BP, Start date: 06/05/13 17:43:00, Duration: 5 doses or times, Stop date: 06/05/13 23:00:00 hydrALAZINE No Scottie 10 mg, 0.5 Memoria 06-05 Haris mL, Route: l 23:43: Walker IVP, Drug Odell n 00 form: INJ, Q20Min, Dosing Weight 105.455, kg, PRN Elevated BP, Start date: 06/05/13 17:43:00, Duration: 2 doses or times, Stop date: 06/05/13 23:00:00(S nereida as: Apresoline ) Push over 5 minutes hydromorpho 2013- [place] Rubin 0.5 mg, Me moria ne 06-05 Haris 0.5 mL, l 23:43: Walker Route: Javier 00 IVP, Drug form: INJ, Q5Min, Dosing Weight 105.455, kg, PRN Pain Score 7-10, Start date: 06/05/13 17:43:00, Duration: 4 doses or times, Stop date: 06/05/13 23:00:00 fentanyl 2013- No Scottie 25 Memoria -08 Haris microgram, l 23:43: Walker 0.5 mL, Javier 00 Route: IVP, Drug form: INJ, Q5Min, Dosing Weight 105.455, kg, PRN Pain Score 4-6, Start date: 06/05/13 17:43:00, Duration: 4 doses or times, Stop date: 06/05/13 23:00:00(S nereida as: Sublimaze) Preservat raphael free. acetaminoph No Scottie 1,000 mg, Memoria en 06-05 Haris 100 mL, l 23:43: Walker Route: IVPB, Drug form: INJ, ONCE, Dosing Weight 105.455, kg, PRN Pain Score 1-3, Start date: 06/05/13 17:43:00, Duration: 1 doses or times, Stop date: Limited # of timesInfus e over 15 minutes Do not exceed 4gm/day of acetaminop hen Protonix [place] Rubin 40 mg, M emoria 06-05 Kike Route: l 22:39: IVP, Drug form: INJ, Before Dinner, Dosing Weight 105.455, kg, Patient is NPO, Start date: 06/05/13 16:39:00, Duration: 30 day, Stop date: 07/05/13 16:30:00Fo r IV push reconstitu te with 10 ml 0.9% sodium chloride and push over 2 minutes. (Same as: Protonix) Lovenox No Cyndi Rubin 40 mg, 0.4 Andreworia 06-05 Kike mL, Route: l 22:00: SUB-Q, Drug form: INJ, [id number], Dosing Weight 105.455, kg, Start date: 06/05/13 16:00:00, Duration: 30 day, Stop date: 07/04/13 16:00:00(S nereida as: Lovenox) Ancef 2013- No Cyndi Rubin 2 gm, Memor ia 06-05 Kike Route: l 22:00: IVPB, [id number], Dosing Weight 105.455, kg, Start date: 06/05/13 16:00:00, Duration: 30 day, Stop date: 07/05/13 8:00:00 Zofran No Cyndi Rubin 4 mg, 2 Me moria 06-05 Kike mL, Route: l 21:42: IV, Drug form: INJ, Q8H, Dosing Weight 105.455, kg, PRN Nausea, Start date: 06/05/13 15:42:00, Duration: 30 day, Stop date: 07/05/13 15:41:00(S nereida as: Zofran) fluorescein No Surainder 500 mg, 5 Memoria ophthalmic 1-08 K Ajmani mL, Route: l 18:00: IV, ONCALL, Drug form: INJ, Start date: 06/05/13 12:00:00, Duration: 30 day, Stop date: 07/05/13 11:59:00(S nereida as: Fluorescit e) Dulcolax No Surainder 40 mg, 4 Memoria Laxative 1-08 K Rehanmani supp, l 15:43: Route: ID, Drug form: SUPP, ONCE, Start date: 06/05/13 9:43:00, Stop date: 06/05/13 9:43:00(Sa me As: Dulcolax, Bisco-Lax) Klonopin No Surainder 0.5 mg, 1 Memoria 1-08 K Ajmani tab, l 15:00: Route: PO, Drug form: TAB, Daily, Start date: 06/05/13 9:00:00, Duration: 30 day, Stop date: 07/04/13 9:00:00(Sa me As: Klonopin) Dulcolax No Surainder 40 mg, 4 Memoria Laxative 1-08 K Ajmani supp, l 14:07: Route: ID, Javier 00 Drug form: SUPP, ONCE, Start date: 06/05/13 8:07:00, Stop date: 06/05/13 8:07:00( me As: Dulcolax, Bisco-Lax) magnesium No Surainder 4 gm, 100 Memoria sulfate 1-08 K Ajmani mL, Route: l 14:00: IVPB, Drug form: INJ, ONCALL, Start date: 06/05/13 8:00:00, Duration: 30 day, Stop date: 07/05/13 7:59:00 potassium No Surainder 20 mEq, Memoria chloride 1-08 K Ajmani 100 mL, l 14:00: Route: IVPB, Drug form: INJ, Q2H, Start date: 06/05/13 8:00:00, Duration: 2 doses or times, Stop date: 06/05/13 10:00:00(S nereida as: KCL) Infuse no faster than 10 mEq/hr if given peripheral ly. Dulcolax No Surainder 10 mg, 1 Memoria Laxative 1-08 K Ajmani supp, l 13:38: Route: ID, Drug form: SUPP, ONCE, Start date: 06/05/13 7:38:00, Stop date: 06/05/13 7:38:00( me As: Dulcolax, Bisco-Lax) morphine No Saud 4 mg, 1 Memor ia Sulfate -08 Alek mL, Route: l 04:25: Abby IV, Drug form: INJ, Q2H, PRN Pain Score 6-10, Start date: 06/04/13 22:25:00, Stop date: 07/04/13 22:24:00(S nereida as:MORPhin e Sulfate) Ativan No Surainder 1 mg, 0.5 M emoria 1-08 K Ajmani mL, Route: l 04:03: IV, Drug form: INJ, Q4H, PRN Agitation, Start date: 06/04/13 22:03:00, Duration: 30 day, Stop date: 07/04/13 22:02:00(S nereida as: Ativan) Klonopin No Surainder 1 mg, 2 M emoria 1-08 K Ajmani tab, l 04:00: Route: PO, Javier 00 Drug form: TAB, ONCE, Start date: 06/04/13 22:00:00, Stop date: 06/04/13 22:00:00(S nereida As: Klonopin) Ancef + No Saud 1 gm, Memoria Sodium 06-05 Alek Route: l Chloride 02:00: Abby IVPB, Odell n 0.9% IV 100 00 [id number], mL Dosing Weight 105.455, kg, Start date: 06/04/13 20:00:00, Duration: 30 day, Stop date: 07/04/13 12:00:00(S nereida As: Ancef, Kefzol) Dextrose 5% No Saud 1,000 mL, Memoria with 0.45% 06-04 Alek Rate: 125 l NaCl IV 21:57: Abby ml/hr, Odell n 1,000 mL + 00 Infuse potassium over: 8 chloride 10 hr, Route: mEq IV, Dosing Weight 105.455 kg, Total Volume: 1,005, Start date: 06/04/13 15:57:00, Duration: 30 day, Stop date: 07/04/13 15:56:00 ondansetron No Eden 4 mg, 2 M emoria 06-04 Reinaldo mL, Route: l 21:50: Mawji IVP, Drug form: INJ, ONCE, Dosing Weight 105.455, kg, PRN Nausea & Vomiting, Start date: 06/04/13 15:50:00(S nereida as: Zofran) naloxone No Eden 0.04 mg, Mem oria 06-04 Reinaldo 0.1 mL, l 21:50: Mawji Route: Javier 00 IVP, Drug form: INJ, Q2MIN, Dosing Weight 105.455, kg, PRN Narcotic Reversal, Start date: 06/04/13 15:50:00, Duration: 8 doses or times, Stop date: 06/04/13 23:00:00(S nereida as: Narcan) flumazenil No Eden 0.2 mg, 2 Memoria 1-07 Reinaldo mL, Route: l 21:50: Mawji IVP, Drug form: INJ, PRN, Dosing Weight 105.455, kg, PRN Benzodiaze pine Reversal, Initial dose, Start date: 06/04/13 15:50:00, Duration: 30 day, Stop date: 07/04/13 15:49:00(S nereida as: Romazicon) acetaminoph No Eden 1,000 mg, Memoria en 06-04 Reinaldo 100 mL, l 21:50: Mawji Route: [place] 00 IVPB, Drug form: INJ, ONCE, Dosing Weight 105.455, kg, PRN Pain Score 1-3, Start date: 06/04/13 15:50:00, Duration: 1 doses or times, Stop date: Limited # of timesInfus e over 15 minutes Do not exceed 4gm/day of acetaminop hen morphine No Eden 2 mg, 1 Yosi brittanie Sulfate - Reinaldo mL, Route: l 21:50: Mawji IVP, Drug form: INJ, Q5Min, Dosing Weight 105.455, kg, PRN Pain Score 4-6, Start date: 06/04/13 15:50:00, Duration: 5 doses or times, Stop date: 06/04/13 23:00:00(S nereida as:MORPhin e Sulfate) GoLYTELY No Saud 4,000 ml, Mem oria 06-04 Alek Route: NG, l 21:25: Abby Drug Form: Amy nn 00 PDR/REC, Dosing Weight 105.455, kg, ONCE, Start date: 06/04/13 15:25:00, Duration: 1 doses or times, Stop date: 06/04/13 15:25:00(p olyethylen e glycol electrolyt e solution 4 Liter bottle) (Same as: Golytely, Colyte) D5W 1/2NS + No Saud 1,000 mL, Memoria KCL 10mEq/L 1-07 Alek Rate: 125 l 1000ml 21:24: Abby ml/hr, [place] (Premix) 00 Infuse 1000 mL over: 8 hr, Route: IV, Dosing Weight 105.455 kg, Total Volume: 1,000, Start date: 06/04/13 15:24:00, Duration: 30 day, Stop date: 07/04/13 15:23:00 morphine No Saud 2 mg, 1 Memor ia Sulfate 1-07 Alek mL, Route: l 21:19: Abby IVP, Drug Odell n 00 form: INJ, Q4H, Dosing Weight 105.455, kg, PRN Pain, Start date: 06/04/13 15:19:00, Duration: 30 day, Stop date: 07/04/13 15:18:00(S nereida as:MORPhin e Sulfate) [place] No Cyndi Rubin 4,000 ml, Memoria 1-07 Stokes Route: PO, l 19:00: Drug Form: [place] 00 PDR/REC, Dosing Weight 105.455, kg, ONCE, Start date: 06/04/13 13:00:00, Duration: 1 doses or times, Stop date: 06/04/13 13:00:00(p olyethylen e glycol electrolyt e solution 4 Liter bottle) (Same as: Bernice Haider) magnesium No Surainder 4 gm, 100 Memoria sulfate 1-07 K Ajmani mL, Route: l 02:00: IVPB, Drug Javier 00 form: INJ, ONCALL, Start date: 06/03/13 20:00:00, Duration: 30 day, Stop date: 07/03/13 19:59:00 K-Dur 20 No Surainder 40 mEq, 2 Memoria 1-07 K Ajmani tab, l 01:00: Route: PO, [place] 00 Drug form: ERTAB, ONCALL, Start date: 06/03/13 19:00:00, Duration: 1 doses or times(Same as: K-Dur 20) "Do Not Crush" With food and full glass of water Tylenol No Amer Ahmad 650 mg, 2 Memoria 1-04 Coffman tab, l 16:33: Route: PO, Javier 00 Drug form: TAB, Q6H, Dosing Weight 105.455, kg, PRN Pain, Start date: 06/01/13 10:33:00, Duration: 30 day, Stop date: 07/01/13 10:32:00Do not exceed 4 gm/day. (Same as: Tylenol) Valium No Saud 2 mg, 1 Memoria 1-04 Alek tab, l 00:33: Abby Route: PO, Amy nn 00 Drug form: TAB, BID, Dosing Weight 105.455, kg, PRN Anxiety, Start date: 05/31/13 18:33:00, Duration: 30 day, Stop date: 06/30/13 18:32:00(S nereida as: Valium) Protonix No Surainder 40 mg, 1 Memoria 1-03 K Ajmani tab, l 22:30: Route: PO, Javier 00 Drug form: ECTAB, Before Dinner, Start date: 05/31/13 16:30:00, Duration: 30 day, Stop date: 06/29/13 16:30:00Ta blet should not be chewed or crushed. (Same as: Protonix) PROzac No Surainder 40 mg, 2 Me moria 1-03 K Ajmani cap, l 16:30: Route: NG, Javier 00 Drug form: CAP, Daily, Start date: 05/31/13 10:30:00, Stop date: 06/30/13 9:00:00([facility] as: Prozac, Sarafem) Levothroid No Surainder 50 Me moria 1-03 K Ajmani microgram, l 16:30: 1 tab, Javier 00 Route: PO, Drug form: TAB, [id number], Start date: 05/31/13 10:30:00, Duration: 30 day, Stop date: 06/30/13 6:30:00Tak e 1 hour before or 2 hours after meal; Enteral feeds may interefere with the absorption of this medication .(Same as:Levothr oid, Synthroid) Detrol LA No Surainder 4 mg, 1 Memoria 1-03 K Ajmani cap, l 16:30: Route: PO, [place] 00 Drug form: CAP, Daily, Start date: 05/31/13 10:30:00, Duration: 30 day, Stop date: 06/30/13 9:00:00Do Not Crush. (Same As: Detrol LA) Sodium No Bhagwat 250 mL, Memor ia Chloride 05-31 [place] Route: l 0.9% IV 16:11: m Goodman IVPB, Odell n 00 Start date: 05/31/13 10:11:00, Duration: 30 day, Stop date: 06/30/13 10:10:00, PRN Line Flush BD Normal No Bhagwat 10 mL, Mem oria Saline 05-31 [place] Route: l Flush 16:11: m Goodman IVP, Drug Herm coretta 00 Form: INJ, PRN, PRN Line Flush, Start date: 05/31/13 10:11:00, Duration: 30 day, Stop date: 06/30/13 10:10:00(S nereida as: BD Posiflush) Restoril No Surainder 15 mg, 1 Memoria 1-03 K Ajmani cap, l 16:10: Route: PO, Javier 00 Drug form: CAP, Bedtime, PRN Sleep, Start date: 05/31/13 10:10:00, Duration: 30 day, Stop date: 06/30/13 10:09:00(S nereida As: Restoril) Readi-Cat 2 No Surainder 450 mL, Memoria 1-03 K Ajmani Route: PO, l 16:00: Drug Form: [place] 00 SUSP, ONCALL, Start date: 05/31/13 10:00:00, Duration: 30 day, Stop date: 06/30/13 9:59:00Sam e as Readi-Cat 2 Zofran No Bhagwat 4 mg, 2 Memor ia 05-31 [place] mL, Route: l 11:49: m Goodman IVP, Drug Amy nn 00 form: INJ, Q4H, PRN Nausea, Start date: 05/31/13 5:49:00, Duration: 30 day, Stop date: 06/30/13 5:48:00(Sa ak as: Zofran) morphine No Bhagwat 4 mg, 2 Mem oria Sulfate 1-03 [place] mL, Route: l 11:49: m Goodman IV, Drug Odell n 00 form: INJ, Q4H, PRN Pain, Start date: 05/31/13 5:49:00, Duration: 30 day, Stop date: 06/30/13 5:48:00(Sa me as:MORPhin e Sulfate) Sodium No Bhagwat 1,000 mL, Mem oria Chloride - [place] Rate: 75 l 0.45% IV 11:49: m Goodman ml/hr, Herm coretta 1,000 mL 00 Infuse over: 13.3 hr, Route: IV, Dosing Weight 105.455 kg, Total Volume: 1,000, Start date: 05/31/13 5:49:00, Duration: 30 day, Stop date: 06/30/13 5:48:00 Detrol LA 4 No 4 mg = 1 Me moria mg oral 1-03 cap, PO, l capsule, 09:46: Daily, at Herm coretta extended 00 bedtime, # release 30 cap, 0 Refill(s)a t bedtime fluoxetine Yes 40 mg = 1 Me moria 40 mg oral 1-03 cap, PO, l capsule 09:46: Daily, at Amy nn 00 9 AM, # 30 cap, 0 Refill(s)a t 9 AM Synthroid Yes 50 Memoria 50 mcg 1-03 microgram l (0.05 mg) 09:46: = 1 tab, Herm coretta oral tablet 00 PO, Daily, at 9 AM, # 30 tab, 0 Refill(s)a t 9 AM Prevacid 30 Yes 30 mg = 1 M emoria mg oral 1-03 cap, PO, l delayed 09:46: Daily, at Amy nn release 00 bedtime, # capsule 30 cap, 0 Refill(s)a t bedtime pneumococca No SYSTEM 0.5 ml, M emoria l 23-valent -03 SYSTEM Route: IM, l vaccine 09:38: Drug Form: Herm coretta 03 INJ, ONCALL, Start date: 05/31/13 3:38:03, Stop date: 02/02/14 3:33:03(Sa me as: Pneumovax 23) Refrigerat e influenza No SYSTEM 0.5 mL, Mem oria virus 1-03 SYSTEM Route: IM, l vaccine, 09:38: Drug Form: Her bolton inactivated 03 SUSP, ONCALL, Start date: 05/31/13 3:38:03, Stop date: 06/30/13 3:33:03( me as: Fluzone) Azactam No Cyndi Rubin 1 gm, Mem oria 4-25 Kike Route: l 19:00: IVPB, Javier 00 [id number], Start date: 09/21/11 14:00:00, Duration: 30 day, Stop date: 10/21/11 6:00:00 nystatin-tr No Cyndi Rubin 1 appl, Memoria iamcinolone 4-24 Kike Route: l topical 14:00: TOP, BID, Amy nn cream 00 Drug form: CRM, Start date: 09/20/11 9:00:00, Duration: 30 day, Stop date: 10/19/11 17:00:00 Lovenox No Cyndi Rubin 40 mg, 0.4 Memoria 4-24 [place] mL, Route: l 09:00: SUB-Q, [place] 00 Drug form: INJ, [id number], Start date: 09/20/11 4:00:00, Duration: 30 day, Stop date: 10/19/11 4:00:00 Lovenox No Cyndi Rubin 40 mg, 0.4 Memoria 4-24 [place] mL, Route: l 05:00: SUB-Q, [place] Drug form: INJ, Q12H, Start date: 09/20/11 0:00:00, Duration: 30 day, Stop date: 10/19/11 12:00:00 Lasix No Cyndi Rubin 20 mg, 1 Me moria 4-23 Stokes tab, l 22:45: Route: PO, Javier 00 Drug form: TAB, Daily, Start date: 09/19/11 17:45:00, Duration: 30 day, Stop date: 10/19/11 9:00:00 K-Dur 20 No Cyndi Rubin 40 mEq, 2 Memoria 4-23 Stokes tab, l 22:43: Route: PO, Javier 00 Drug form: ERTAB, BID, Start date: 09/19/11 17:43:00, Duration: 30 day, Stop date: 10/19/11 17:00:00 vancomycin 2011-0 No Surainder 1 gm, M emoria 4-23 K Ajmani Route: l 19:00: IVPB, [place] 00 [id number], Start date: 09/19/11 14:00:00, Duration: 30 day, Stop date: 10/18/11 14:00:00 levofloxaci 2011-0 No Cyndi Rubin 750 mg, 1 Memoria n 4-23 [place] tab, l 19:00: Route: PO, Javier Drug form: TAB, Q24H, Start date: 09/19/11 14:00:00, Duration: 30 day, Stop date: 10/18/11 14:00:00 Benadryl 2011- No Cyndi Rubin 25 mg, 1 Memoria 4-23 Stokes cap, l 14:39: Route: PO, Javier Drug form: CAP, Q6H, PRN See Nurse's Notes, Start date: 09/19/11 9:39:00, Duration: 30 day, Stop date: 10/19/11 9:38:00 acetaminoph 2011- No Surainder 1 tab, Memoria en-hydrocod 4-23 K Ajcinthiai Route: PO, l one 325 02:34: Drug Form: Herm coretta mg-5 mg 00 TAB, Q4H, oral tablet PRN Pain, Start date: 09/18/11 21:34:00, Duration: 30 day, Stop date: 10/18/11 21:33:00 Xopenex 2011-0 No Cyndi Rubin 0.63 mg, 3 Memoria 4-23 [place] mL, Route: l 01:00: NEB, Drug Javier 00 form: SOLN, RTID, Start date: 09/18/11 20:00:00, Duration: 30 day, Stop date: 10/18/11 14:00:00 ipratropium 2011-0 No Cyndi Rubin 0.5 mg, Memoria 0.02% 4-23 [place] 2.5 mL, l inhalation 01:00: Route: Amy nn solution 00 NEB, Drug form: SOLN, RTID, Start date: 09/18/11 20:00:00, Duration: 30 day, Stop date: 10/18/11 14:00:00 Xopenex 2011-0 No Cyndi Rubin 0.63 mg, 3 Memoria 4-22 [place] mL, Route: l 20:36: NEB, Drug [place] 00 form: SOLN, RTID, PRN See Respirator y Notes, Start date: 09/18/11 15:36:00, Duration: 30 day, Stop date: 10/18/11 15:35:00 ipratropium 2011-0 No Cyndi Rubin 0.5 mg, Memoria 0.02% 4-22 [place] 2.5 mL, l inhalation 20:35: Route: Amy nn solution 00 NEB, Drug form: SOLN, RTID, PRN See Nurse's Notes, Start date: 09/18/11 15:35:00, Duration: 30 day, Stop date: 10/18/11 15:34:00 ferrous 2011-0 No Cyndi Rubin 325 mg, 1 Memoria sulfate 4-21 [place] tab, l 22:00: Route: PO, Javier 00 Drug form: TAB, BID-Meals, Start date: 09/17/11 17:00:00, Duration: 30 day, Stop date: 10/17/11 8:00:00 Lovenox 2011-0 No Cyndi Rubin 40 mg, 0.4 Memoria 4-21 [place] mL, Route: l 21:00: SUB-Q, Javier 00 Drug form: INJ, [id number], Start date: 09/17/11 16:00:00, Duration: 30 day, Stop date: 10/16/11 12:00:00 Levaquin 2011-0 No Cyndi Rubin 500 mg, 1 Memoria 4-21 [place] tab, l 20:00: Route: PO, Javier 00 Drug form: TAB, [id number], Start date: 09/17/11 15:00:00, Duration: 30 day, Stop date: 10/16/11 15:00:00 Xenaderm 2011-0 No Cyndi Rubin 1 appl, Memoria 4-21 [place] Route: l 14:00: TOP, Javier 00 Daily, Drug form: OINT, Start date: 09/17/11 9:00:00, Duration: 30 day, Stop date: 10/16/11 9:00:00 Ambien 2011-0 No Luis 5 mg, 1 Me moria 4-21 Stokes tab, l 03:02: Route: PO, Drug form: TAB, Bedtime, PRN Insomnia, Start date: 09/16/11 22:02:00, Duration: 30 day, Stop date: 10/16/11 22:01:00 Nephro-Idania 2011-0 No Luis 1 tab, Memoria Rx 4-20 Stokes Route: PO, l 22:00: Drug Form: TAB, BID, Start date: 09/16/11 17:00:00, Duration: 30 day, Stop date: 10/16/11 9:00:00 Protonix 2011- No Luis 40 mg, 1 Memoria 4-20 [place] tab, l 21:30: Route: PO, Drug form: ECTAB, Before Dinner, Start date: 09/16/11 16:30:00, Duration: 30 day, Stop date: 10/15/11 16:30:00 vancomycin 2011-0 No Surainder 1 gm, M emoria 4-20 K Ajmani Route: l 19:00: IVPB, [id number], Start date: 09/16/11 14:00:00, Duration: 30 day, Stop date: 10/14/11 14:00:00 Diflucan 2011-0 No Surainder 200 mg, 1 Memoria 4-20 K Ajmani tab, l 19:00: Route: PO, Drug form: TAB, [id number], Start date: 09/16/11 14:00:00, Duration: 30 day, Stop date: 10/15/11 14:00:00 Dilaudid 2011-0 No Surainder 1 mg, 0.5 Memoria 4-20 K Ajmani mL, Route: l 18:27: IV, Drug form: INJ, Q4H, PRN Pain, Start date: 09/16/11 13:27:00, Duration: 30 day, Stop date: 10/16/11 13:26:00 Reglan 2011-0 No Luis 5 mg, 1 Me moria 4-20 Stokes tab, l 18:21: Route: PO, Drug form: TAB, TID-Before Meals, Start date: 09/16/11 13:21:00, Duration: 30 day, Stop date: 10/16/11 11:30:00 Levothroid 2011- No Cyndi Rubin 0.05 mg, 1 Memoria 4-20 [place] tab, l 18:18: Route: PO, Drug form: TAB, [id number], Start date: 09/16/11 13:18:00, Duration: 30 day, Stop date: 10/16/11 6:30:00 Lovenox 2011-0 No Cyndi Rubin 30 mg, 0.3 Memoria 4-20 [place] mL, Route: l 17:00: SUB-Q, Drug form: INJ, QNoon, Start date: 09/16/11 12:00:00, Duration: 30 day, Stop date: 10/15/11 12:00:00 Lasix No Cyndi Rubin 40 mg, 4 Me moria 4-20 Stokes mL, Route: l 15:30: IV, Drug form: INJ, ONCE, Start date: 09/16/11 10:30:00, Stop date: 09/16/11 10:30:00 acetylcyste No Cyndi Rubin 400 mg, 2 Memoria ine 4-20 Stokes mL, Route: l 04:00: NEB, Drug Form: SOLN, RQ8H, Start date: 09/15/11 23:00:00, Duration: 30 day, Stop date: 10/15/11 15:00:00 Sublimaze No Cyndi Ruibn 25 Me moria 4-20 Stokes microgram, l 01:40: 0.5 mL, Route: IV, Drug form: INJ, Q2H, PRN Pain, Start date: 09/15/11 20:40:00, Duration: 30 day, Stop date: 10/15/11 20:39:00 Lasix 0 No Cyndi Rubin 40 mg, 4 Me moria 4-19 [place] mL, Route: l 22:28: IV, Drug form: INJ, ONCE, Start date: 09/15/11 17:28:00, Stop date: 09/15/11 17:28:00 Pulmicort 2011-0 No Cyndi Rubin 1 mg, 4 Memoria Respules 4-19 Kike mL, Route: l 22:27: NEB, Drug form: SOLN, RQ12H, Start date: 09/15/11 17:27:00, Duration: 30 day, Stop date: 10/15/11 16:00:00 MiraLax No Cyndi Rubin 17 gm, 1 Memoria 4-18 Stokes pkt, l 23:00: Route: NG, Drug form: PWDR, Daily, Start date: 09/14/11 18:00:00, Duration: 30 day, Stop date: 10/14/11 9:00:00 potassium No Cyndi Rubin 20 mmol, Memoria phosphate 4-18 Kike 6.67 mL, l 23:00: Route: IV, Javier 00 ONCE, Start date: 09/14/11 18:00:00, Stop date: 09/14/11 18:00:00 Dulcolax No Cyndi Rubin 20 mg, 2 Memoria Laxative 4-18 Kike supp, l 22:15: Route: ID, Drug form: SUPP, ONCE, Start date: 09/14/11 17:15:00, Stop date: 09/14/11 17:15:00 Dulcolax No Cyndi Rubin 20 mg, 2 Memoria Laxative 4-18 Kkie supp, l 21:56: Route: ID, Drug form: SUPP, Q48H, PRN Constipati on, Start date: 09/14/11 16:56:00, Duration: 30 day, Stop date: 10/14/11 16:55:00 Trandate No Pily L 5 mg, 1 Yosi brittanie 4-18 Retz mL, Route: l 20:00: IV, Drug form: INJ, ONCE, Start date: 09/14/11 15:00:00, Stop date: 09/14/11 15:00:00 vancomycin No Surainder 1 gm, M emoria 4-18 K Ajmani Route: l 16:30: IVPB, 00 ONCE, Start date: 09/14/11 11:30:00, Stop date: 09/14/11 11:30:00 Xopenex No Pily L 0.63 mg, 3 Me moria 4-18 Retz mL, Route: l 16:00: NEB, Drug Javier form: SOLN, RQ4H, Start date: 09/14/11 11:00:00, Duration: 30 day, Stop date: 10/14/11 7:00:00 ipratropium 2012-0 No Pily L 0.5 mg, M emoria 0.02% 4-18 Retz 2.5 mL, l inhalation 16:00: Route: Amy nn solution 00 NEB, Drug form: SOLN, RQ4H, Start date: 09/14/11 11:00:00, Duration: 30 day, Stop date: 10/14/11 7:00:00 Trandate 2011-0 No Pily L 5 mg, 1 Yosi brittanie 4-18 Retz mL, Route: l 15:00: IV, Drug Javier 00 form: INJ, ONCE, Start date: 09/14/11 10:00:00, Stop date: 09/14/11 10:00:00 AMIODarone 2011-0 No Pily L 482 mL, Me moria 900 mg + 4-18 Retz Rate: l Dextrose 5% 14:55: TITRATE, He rmann in Water IV 00 Route: IV, 482 mL Dosing Weight 117.8 kg, Total Volume: 500, Start date: 09/14/11 9:55:00, Duration: 1 doses or times, Stop date: 09/15/11 9:54:00 potassium 2011-0 No Pily L 20 mEq, Mem oria chloride 4-18 Retz 100 mL, l 14:30: Route: Javier 00 IVPB, Drug form: INJ, ONCE, Start date: 09/14/11 9:30:00, Stop date: 09/14/11 9:30:00 Cordarone 2011-0 No Pily L 150 mg, 3 M emoria 4-18 Retz mL, Route: l 14:13: IVPB, Drug [place] form: INJ, ONCE, Start date: 09/14/11 9:13:00, Stop date: 09/14/11 9:13:00 Cardizem 2011-0 No Pily L 10 mg, 2 Mem oria 4-18 Retz mL, Route: l 14:12: IV, Drug [place] form: INJ, ONCE, Start date: 09/14/11 9:12:00, Stop date: 09/14/11 9:12:00 Cardizem 2011-0 No Pily L 10 mg, 2 Mem oria 4-18 Retz mL, Route: l 14:09: IV, Drug [place] 00 form: INJ, ONCE, Start date: 09/14/11 9:09:00, Stop date: 09/14/11 9:09:00 diltiazem 2011-0 No Pily L 100 mL, Mem oria 100 mg + 4-18 Retz Rate: l Sodium 14:09: TITRATE, [place] Chloride 00 Route: IV, 0.9% IV 100 Dosing mL Weight 117.8 kg, Total Volume: 100, Start date: 09/14/11 9:09:00, Duration: 30 day, Stop date: 10/14/11 9:08:00 Lanoxin 2011-0 No Pily L 0.5 mg, 2 Mem oria 4-18 Retz mL, Route: l 14:08: IV, Drug Javier form: INJ, ONCE, Start date: 09/14/11 9:08:00, Stop date: 09/14/11 9:08:00 parenteral 2011-0 No Cyndi Rubin 1,680 mL, Memoria nutrition 4-18 Stokes Rate: 70 l solution 02:00: ml/hr, Javier w/electroly 00 Infuse ernesto 1,680 over: 24 mL hr, Route: IV, Dosing Weight 117.8 kg, Total Volume: 1,680, Start date: 09/13/11 21:00:00, Duration: 30 day, Stop date: 10/13/11 20:59:00 Reglan 2011-0 No Cyndi Rubin 10 mg, 10 Memoria 4-17 [place] mL, Route: l 22:15: NG, Drug Javier 00 form: SYRP, Q8H, Start date: 09/13/11 17:15:00, Duration: 30 day, Stop date: 10/13/11 16:00:00 vancomycin 2011-0 No Cyndi Rubin 1 gm, Memoria 4-17 Stokes Route: l 22:00: IVPB, Javier 00 ONCALL, Start date: 09/13/11 17:00:00, Stop date: 09/13/11 23:00:00 phytonadion No Cyndi Rubin 10 mg, 1 Memoria e 4-17 Stokes mL, Route: l 22:00: IVPB, Drug form: INJ, ONCE, Start date: 09/13/11 17:00:00, Stop date: 09/13/11 17:00:00 calcium 2011- No Cyndi Rubin 1,000 mg, Memoria chloride 4-17 Stokes 10 mL, l 03:00: Route: IV, [place] 00 Drug form: INJ, ONCE, Start date: 09/12/11 22:00:00, Stop date: 09/12/11 22:00:00 albumin No Luis 25 gm, 100 Memoria human 4-17 Stokes mL, Route: l 01:00: IV, Drug form: INJ, Q12H, Start date: 09/12/11 20:00:00, Stop date: 09/15/11 0:00:00 Sodium No Cyndi Rubin 250 mL, Me moria Chloride 4-16 Stokes Route: l 0.9% IV 23:05: IVPB, [place] 00 Start date: 09/12/11 18:05:00, Duration: 30 day, Stop date: 10/12/11 18:04:00, PRN Line Flush BD Normal No Luis 10 mL, Memoria Saline 4-16 Stokes Route: l Flush 23:05: IVP, Drug Form: INJ, PRN, PRN Line Flush, Start date: 09/12/11 18:05:00, Duration: 30 day, Stop date: 10/12/11 18:04:00 calcium No Luis 1,000 mg, Memoria gluconate 4-16 Stokes 10 mL, l 16:00: Route: IV, Javier 00 Drug form: INJ, ONCE, Start date: 09/12/11 11:00:00, Stop date: 09/12/11 11:00:00 DuoNeb No Cyndi Rubin 3 mL, Yosi brittanie inhalation 4-16 Kike Route: l solution 16:00: NEB, Drug Form: SOLN, RQ4H, Start date: 09/12/11 11:00:00, Duration: 30 day, Stop date: 10/12/11 7:00:00 Diflucan 2011- No Cyndi Rubin 200 mg, Memoria 4-16 [place] 100 mL, l 16:00: Route: [place] 00 IVPB, Drug form: INJ, [id number], Start date: 09/12/11 11:00:00, Duration: 3 day, Stop date: 09/14/11 11:00:00 magnesium 2011- No Cyndi Rubin 50 mL, Memoria sulfate -16 Stokes Rate: 25 l 16:00: ml/hr, Javier Infuse over: 2 hr, Route: IVPB, Total Volume: 50, Start date: 09/12/11 11:00:00, Stop date: 09/12/11 11:00:00 calcium 2011- No Alli 1,000 mg, Yosi brittanie gluconate - [place] 10 mL, l 12:00: Vandana Route: Amy nn 00 IVPB, ONCE, Start date: 09/12/11 7:00:00, Stop date: 09/12/11 7:00:00 chlorhexidi No Alli 15 mL, Mem oria ne topical 09-11 Route: l 0.12% 11:00: Vandana S&HAO, Her bolton liquid 00 Q6H, Drug form: LIQ, Start date: 09/12/11 6:00:00, Duration: 30 day, Stop date: 10/12/11 0:00:00 fentanyl 2011- [place] Cyndi Rubin IV, Start Memoria 0.6 mg - Stokes date: l 05:54: 09/12/11 [place] 0:54:00, Duration: 30, 30 ml glucagon No Alli 1 mg, Memoria -16 Soren Route: IV, l 05:19: Vandana Drug form: H ermann 00 PDR/INJ, PRN, PRN Blood Glucose Results, Start date: 09/12/11 0:19:00, Duration: 30 day, Stop date: 10/12/11 0:18:00 Dextrose No Alli 50 mL, Memori a 50% in - [place] Route: l Water IV 05:19: Vandana IVP, Start Javier 00 date: 09/12/11 0:19:00, Duration: 30 day, Stop date: 10/12/11 0:18:00, PRN Blood Glucose Results NovoLog No Alli 6 unit, Memori a FlexPen 4-16 Soren 0.06 mL, l 05:19: Ross Route: Amy nn 00 SUB-Q, Drug form: SOLN, Sliding Scale, PRN Blood Glucose Results, Start date: 09/12/11 0:19:00, Stop date: 10/12/11 0:18:00 Sodium No Cyndi Rubin 1,000 mL, Memoria Chloride 4-16 Stokes Rate: 100 l 0.9% IV 04:33: ml/hr, [place] 1,000 mL 00 Infuse over: 10 hr, Route: IV, Dosing Weight 117.8 kg, Total Volume: 1,000, Start date: 09/11/11 23:33:00, Stop date: 09/13/11 20:59:00 Sodium 2011- No Cyndi Rubin 1,000 mL, Memoria Chloride 4-16 Stokes Rate: 100 l 0.9% IV 01:19: ml/hr, [place] 1,000 mL 00 Infuse over: 10 hr, Route: IV, Dosing Weight 117.8 kg, Total Volume: 1,000, Start date: 09/11/11 20:19:00, Duration: 30 day, Stop date: 10/11/11 20:18:00 Sublimaze No Cyndi Rubin 50 Me moria 4-15 Stokes microgram, l 22:41: 1 mL, Javier 00 Route: IV, Drug form: INJ, ONCE, Start date: 09/11/11 17:41:00, Stop date: 09/11/11 17:41:00 Lasix No Cyndi Rubin 80 mg, 8 Me moria 4-15 Stokes mL, Route: l 22:14: IV, Drug Javier 00 form: INJ, ONCE, Start date: 09/11/11 17:14:00, Stop date: 09/11/11 17:14:00 albumin 2011-0 No Pily L 25 gm, 100 Me moria human 4-15 Retz mL, Route: l 21:46: IV, Drug Javier 00 form: INJ, ONCE, Start date: 09/11/11 16:46:00, Stop date: 09/11/11 16:46:00 Lasix 2011- No Pily L 20 mg, 2 Memori a 4-15 Retz mL, Route: l 21:38: IV, Drug form: INJ, ONCE, Start date: 09/11/11 16:38:00, Stop date: 09/11/11 16:38:00 Sublimaze No Cyndi Rubin 50 Me moria 4-15 Stokes microgram, l 20:04: 1 mL, Javier 00 Route: IV, Drug form: INJ, ONCE, Start date: 09/11/11 15:04:00, Stop date: 09/11/11 15:04:00 sodium No Cyndi Rubin 100 mEq, M emoria bicarbonate 4-15 Stokes 100 mL, l 8.4% 19:00: Route: IV, [place] 00 Drug Form: INJ, ONCE, Start date: 09/11/11 14:00:00, Stop date: 09/11/11 14:00:00 cefazolin [place] Rubin 1 gm, M emoria 4-15 Stokes Route: l 15:00: IVPB, [place] 00 [id number], Start date: 09/11/11 10:00:00, Duration: 30 day, Stop date: 10/11/11 2:00:00 calcium No Pily L 2,000 mg, Mem oria gluconate 4-15 Retz 20 mL, l 15:00: Route: IV, Javier 00 ONCE, Start date: 09/11/11 10:00:00, Stop date: 09/11/11 10:00:00 albumin 0 [place] Rubin 25 gm, 500 Memoria human 4-15 Stokes mL, Route: l 14:40: IV, Drug form: INJ, ONCE, Start date: 09/11/11 9:40:00, Stop date: 09/11/11 9:40:00 Haldol No Pily L 5 mg, 1 Memori a 4-15 Retz mL, Route: l 14:39: IV, Drug form: INJ, Q4H, PRN Agitation, Start date: 09/11/11 9:39:00, Duration: 30 day, Stop date: 10/11/11 9:38:00 Sodium No Pily L 1,000 mL, Yosi brittanie Chloride 4-15 Retz Rate: 100 l 0.9% IV 14:38: ml/hr, [place] 1,000 mL 00 Infuse over: 10 hr, Route: IV, Dosing Weight 117.8 kg, Total Volume: 1,000, Start date: 09/11/11 9:38:00, Stop date: 10/11/11 9:37:00 Pepcid No Cyndi Rubin 20 mg, 2 M emoria 4-15 Stokes mL, Route: l 14:00: IVP, Drug form: INJ, Daily, Start date: 09/11/11 9:00:00, Duration: 30 day, Stop date: 10/10/11 9:00:00 Merrem No Surainder 500 mg, Mem oria 4-15 K Ajmani Route: l 11:00: IVPB, Javier 00 [id number], Start date: 09/11/11 6:00:00, Duration: 1 day, Stop date: 09/17/11 6:00:00 albumin No Cyndi Rubin 12.5 gm, Memoria human 4-15 Stokes 250 mL, l 10:32: Route: IV, Javier 00 Drug form: INJ, ONCE, Start date: 09/11/11 5:32:00, Stop date: 09/11/11 5:32:00 vancomycin No Surainder 1 gm, M emoria 4-15 K Ajmani Route: l 10:30: IVPB, Javier 00 ONCE, Start date: 09/11/11 5:30:00, Stop date: 09/11/11 5:30:00 hetastarch No Cyndi Rubin IV, Start Memoria 6% in NS 4-15 Stokes date: l 500 mL 10:30: 09/11/11 Javier 00 5:30:00, Duration: 1, 500 ml Lasix No Cyndi Rubin 20 mg, 2 Me moria 4-15 Stokes mL, Route: l 02:09: IV, Drug form: INJ, ONCE, Start date: 09/10/11 21:09:00, Stop date: 09/10/11 21:09:00 hydromorpho No Saud 30 mL, Mem oria ne 6 mg 4-15 Alek Rate: l 01:50: Abby asdir, Route: IV, Dosing Weight 117.8 kg, Total Volume: 30, Start date: 09/10/11 20:50:00, Duration: 30 day, Stop date: 10/10/11 20:49:00 Dextrose 5% No Cyndi Rubin 1,000 mL, Memoria with 0.45% 4-14 Kike Rate: 250 l NaCl IV 23:00: ml/hr, Javier 1,000 mL 00 Infuse over: 4 hr, Route: IV, Dosing Weight 117.8 kg, Total Volume: 1,000, Start date: 09/10/11 18:00:00, Stop date: 10/10/11 17:59:00 Protonix No Cyndi Rubin 40 mg, M emoria 4-14 Kike Route: l 21:30: IVP, Drug form: INJ, Before Dinner, Start date: 09/10/11 16:30:00, Duration: 30 day, Stop date: 10/09/11 16:30:00 Sodium No Cyndi Rubin IV, 500 Me moria Chloride 4-14 Kike ml/hr, l 0.9% IV 20:00: ONCALLJavier Start date: 09/10/11 15:00:00, Duration: 30, 500 ml hetastarch No Cyndi Rubin 500 mL, Memoria 6% in NS 4-14 Kike 500 ml/hr, l 19:00: Route: IV, Drug Form: INJ, ONCE, Start date: 09/10/11 14:00:00, Stop date: 09/10/11 14:00:00 Ativan No Saud 1 mg, 0.5 Memor ia 4-14 Alek mL, Route: l 16:49: Abby IV, Drug form: INJ, Q6H, PRN Anxiety, Start date: 09/10/11 11:49:00, Duration: 30 day, Stop date: 10/10/11 11:48:00 Lopressor No Cyndi Rubin 25 mg, 1 Memoria 4-14 Kike tab, l 14:00: Route: PO, [place] 00 Drug form: TAB, Daily, Start date: 09/10/11 9:00:00, Duration: 30 day, Stop date: 10/09/11 9:00:00 Lovenox 2011- No Cyndi Rubin 40 mg, 0.4 Memoria 4-14 Stokes mL, Route: l 14:00: SUB-Q, Drug form: INJ, Daily, Start date: 09/10/11 9:00:00, Duration: 30 day, Stop date: 10/09/11 9:00:00 Zofran No Cyndi Rubin 4 mg, 2 Me moria 4-14 Stokes mL, Route: l 06:40: IVP, Drug form: INJ, Q4H, PRN Nausea, Start date: 09/10/11 1:40:00, Duration: 30 day, Stop date: 10/10/11 1:39:00 influenza No SYSTEM 0.5 mL, Mem oria virus 4-14 SYSTEM Route: IM, l vaccine, 01:52: Drug Form: Her bolton inactivated 24 INJ, ONCALL, Start date: 09/09/11 20:52:24, Stop date: 10/09/11 20:47:24Sa me as: Fluarix Contains 15 mcg of influenza virus antigen from each of 3 viruses H1N1, H3N2, and 3,11 cefazolin No Cyndi Rubin 2 gm, 100 Memoria 4-14 Stokes mL, Route: l 01:00: IVPB, Drug form: INJ, [id number], Start date: 09/09/11 20:00:00, Stop date: 09/10/11 16:10:00 morphine 2011- [place] Rubin IV, Start Memoria Sulfate 30 4-14 Stokes date: l mg 00:06: 09/09/11 Javier 00 19:06:00, 30 ml Dextrose 5% No Cyndi Rubin 1,000 mL, Memoria with 0.45% 4-14 Kike Rate: 250 l NaCl IV 00:03: ml/hr, Javier 1,000 mL 00 Infuse over: 4 hr, Route: IV, Dosing Weight 117.8 kg, Total Volume: 1,000, Start date: 09/09/11 19:03:00, Duration: 4 hr, Stop date: 09/10/11 17:58:00 Phenergan 2011-0 No Julio Cesar A 12.5 mg, Memoria - [place] Route: IM, l 22:07: ONCE, Start date: 09/09/11 17:07:00, Stop date: 09/09/11 17:07:00 hydromorpho 2011-0 No Julio Cesar A 0.1 mg, Memoria ne 09-08 [place] Route: IV, l 21:58: ONCE, Start date: 09/09/11 16:58:00, Stop date: 09/09/11 16:58:00 Zofran 2011-0 No Julio Cesar A 4 mg, Memor ia 09-08 [place] Route: IV, l 21:56: ONCE, Start date: 09/09/11 16:56:00, Stop date: 09/09/11 16:56:00 hydromorpho 2011-0 No Julio Cesar A 0.2 mg, Memoria ne 09-08 [place] Route: IV, l 21:55: ONCE, Start date: 09/09/11 16:55:00, Stop date: 09/09/11 16:55:00 TraZODone TraZODone Yes Unive rs HCl - 100 HCl - 100 ity o f MG Oral MG Oral [place] Tablet Tablet [facility] ans Meloxicam Meloxicam Yes Unive rs 7.5 MG Oral 7.5 MG Oral i ty of Tablet Tablet [place] [facility] Zanaflex 4 Zanaflex 4 Yes Uni vers MG Oral MG Oral ity of Capsule Capsule [place] [facility] Gabapentin Gabapentin Yes Uni vers 300 MG Oral 300 MG Oral i ty of Capsule Capsule [place] [facility] Hydrocodone Hydrocodone Yes U nivers -Acetaminop -Acetaminop i ty of hen 7.5-325 hen 7.5-325 [place] MG Oral MG Oral Physici Tablet Tablet ans Donepezil Donepezil Yes Unive rs HCl - 10 MG HCl - 10 MG i ty of Oral Tablet Oral Tablet [place] [facility] Memantine Memantine Yes Unive rs HCl - 10 MG HCl - 10 MG i ty of Oral Tablet Oral Tablet [place] [facility] Prempro Prempro Yes Univers 0.3-1.5 MG 0.3-1.5 MG ity of Oral Tablet Oral Tablet [place] [facility] ans Tolterodine Tolterodine Yes U nivers Tartrate ER Tartrate ER i ty of 4 MG Oral 4 MG Oral [place] Capsule Capsule Physici Extended Extended ans Release 24 Release 24 Hour Hour Levothyroxi Levothyroxi Yes U nivers ne Sodium ne Sodium ity o f 75 MCG Oral 75 MCG Oral [place] Tablet Tablet Physici ans Prevacid 30 Prevacid 30 Yes U nivers MG Oral MG Oral ity of Capsule Capsule [place] Delayed Delayed Physici Release Release ans Aspir-81 Aspir-81 Yes Lise [address] [facility] Viteydidier Viteyes Yes Lise as [facility] [place] [facility] Stool Stool Yes Lise [address] [facility] Softener Softener [place] as needed [facility] Trazodone Trazodone Yes Lise [address] [facility] HCl HCl [place] at [facility]time [facility] Prempro Prempro Yes Lise [address] [facility] Lyrica Lyrica Yes [facility] capsule [facility] [place] [facility] Clonazepam Clonazepam Yes Lise [address] [facility] [place] [facility] Myrbetriq Myrbetriq Yes Lise [address] [facility] [place] [facility] Tizanidine Tizanidine Yes Lise [address] [facility] HCl HCl [place] as needed [facility] Meloxicam Meloxicam Yes Lise [address] [facility] [place] [facility] Memantine Memantine Yes Lise [address] [facility] HCl HCl [facility] Donepezil Donepezil Yes Lise [address] [facility] HCl HCl Marj at bedtime [facility] BuPROPion BuPROPion Yes Lise [address] [facility] HCl ER (XL) HCl ER (XL) Marj in the [facility] Citalopram Citalopram Yes Lise 0.[address] [facility] Hydrobromid Hydrobromid [place] [facility] Tolterodine Tolterodine Yes Lise [address] [facility] Tartrate ER Tartrate ER Marj [facility] Hydrocodone Hydrocodone Yes Lise [address] [facility] -Acetaminop -Acetaminop [facility]j as needed [facility] Potassium Potassium Yes Lise [address] [facility] [place] [facility] Lansoprazol Lansoprazol Yes Lise [address] [facility] [place] [facility] Levothyroxi Levothyroxi Yes Lise [address] [facility] ne Sodium ne Sodium Marj on an [facility] stomach in l the Out[facility] morning ent Clinics Tolterodine Tolterodine Yes U nivers Tartrate ER Tartrate ER i ty of 4 MG Oral 4 MG Oral [place] Capsule Capsule Physici Extended Extended ans Release 24 Release 24 Hour Hour BuPROPion BuPROPion Yes Unive rs HCl ER (XL) HCl ER (XL) i ty of 300 MG Oral 300 MG Oral [place] Tablet Tablet Physici Extended Extended ans Release 24 Release 24 Hour Hour Citalopram Citalopram Yes Uni vers Hydrobromid Hydrobromid i ty of e 40 MG e 40 MG [place] Oral Tablet Oral Tablet P hysici ans ClonazePAM ClonazePAM Yes Uni vers 0.5 MG Oral 0.5 MG Oral i ty of Tablet Tablet [place] Disintegrat Disintegrat P hysici ing ing ans Vital Signs Vital Name Observation Time Observation Value Comments Source Height 2018-04-12 17:38:00 60 [in_us] [facility] Weight 2018-04-12 17:38:00 245 [lb_av] [facility] Body Mass Index 2018-04-12 17:38:00 47.85 kg/m2 Unive rsity of Calculated [place] [facility]ician [facility] Systolic (mm Hg) 2016-01-04 21:00:00 Yosi Herrera Diastolic (mm Hg) 2016-01-04 21:00:00 Andrew Herrera Respitory Rate 2016-01-04 21:00:00 Iris Kingsley Heart Rate 2016-01-04 21:00:00 [facility] Temperature Oral (F) 2016-01-04 21:00:00 98.5 F [facility] Systolic (mm Hg) 2016-01-04 17:09:00 [facility] Diastolic (mm Hg) 2016-01-04 17:09:00 [facility] Respitory Rate 2016-01-04 17:09:00 [facility] Temperature Oral (F) 2016-01-04 17:09:00 98.3 F [facility] Heart Rate 2016-01-04 17:09:00 [facility] Systolic (mm Hg) 2016-01-04 13:27:00 [facility] Diastolic (mm Hg) 2016-01-04 13:27:00 [facility] Temperature Oral (F) 2016-01-04 13:27:00 98.6 F [facility] Respitory Rate 2016-01-04 13:27:00 [facility] Heart Rate 2016-01-04 13:27:00 [facility] BMI Calculated 2016-01-03 07:54:00 [facility] Weight 2016-01-03 07:54:00 [facility] Height 2016-01-03 07:54:00 152.4 cm [facility] Heart Rate 2013-06-20 14:01:00 [facility] Respitory Rate 2013-06-20 14:01:00 [facility] Diastolic (mm Hg) 2013-06-20 14:01:00 [facility] Systolic (mm Hg) 2013-06-20 14:01:00 [facility] Heart Rate 2013-06-20 06:33:00 [facility] Temperature Oral (F) 2013-06-20 06:33:00 98.1 F [facility] Respitory Rate 2013-06-20 06:33:00 [facility] Systolic (mm Hg) 2013-06-20 06:33:00 [facility] Diastolic (mm Hg) 2013-06-20 06:33:00 [facility] [place] Systolic (mm Hg) 2013-06-19 21:46:00 [facility] Respitory Rate 2013-06-19 21:46:00 [facility] Temperature Oral (F) 2013-06-19 21:46:00 98.1 F [facility] Diastolic (mm Hg) 2013-06-19 21:46:00 [facility] [place] Heart Rate 2013-06-19 21:46:00 [facility] Temperature Oral (F) 2013-06-19 14:05:00 98.3 F [facility] Height 2013-06-14 02:44:00 152.4 cm [facility] Weight 2013-06-14 02:44:00 [facility] Weight 2013-06-14 02:35:00 [facility] Height 2013-06-14 02:35:00 152.4 cm [facility] Temperature Oral (F) 2013-06-13 21:15:00 98.5 F [facility] Heart Rate 2013-06-13 21:15:00 [facility] Respitory Rate 2013-06-13 21:15:00 [facility] Systolic (mm Hg) 2013-06-13 21:15:00 [facility] Diastolic (mm Hg) 2013-06-13 21:15:00 [facility] Temperature Oral (F) 2013-06-13 18:00:00 97.8 F [facility] Systolic (mm Hg) 2013-06-13 18:00:00 [facility] Diastolic (mm Hg) 2013-06-13 18:00:00 [facility] Respitory Rate 2013-06-13 18:00:00 [facility] Heart Rate 2013-06-13 18:00:00 [facility] Diastolic (mm Hg) 2013-06-13 14:00:00 [facility] [place] Systolic (mm Hg) 2013-06-13 14:00:00 [facility] Respitory Rate 2013-06-13 14:00:00 [facility] Temperature Oral (F) 2013-06-13 14:00:00 97.5 F [facility] Heart Rate 2013-06-13 14:00:00 [facility] Height 2013-06-06 13:50:00 152.4 cm [facility] Weight 2013-05-31 13:50:00 [facility] Height 2013-05-31 09:25:00 152.4 cm [facility] Weight 2013-05-31 09:25:00 [facility] Diastolic (mm Hg) 2011-09-21 17:50:00 [facility] Systolic (mm Hg) 2011-09-21 17:50:00 Yosi [facility] Respitory Rate 2011-09-21 17:50:00 [facility] Heart Rate 2011-09-21 17:50:00 [facility] Respitory Rate 2011-09-21 13:57:00 [facility] Diastolic (mm Hg) 2011-09-21 13:57:00 [facility] Systolic (mm Hg) 2011-09-21 13:57:00 [facility] Heart Rate 2011-09-21 13:57:00 [facility] Respitory Rate 2011-09-21 09:00:00 [facility] Systolic (mm Hg) 2011-09-21 09:00:00 [facility] Heart Rate 2011-09-21 09:00:00 [facility] Diastolic (mm Hg) 2011-09-21 09:00:00 [facility] Temperature Oral (F) 2011-09-21 09:00:00 98.0 F [facility] Temperature Oral (F) 2011-09-21 05:00:00 98.1 F [facility] Temperature Oral (F) 2011-09-20 21:11:00 98.1 F [facility] Weight 2011-09-06 15:17:00 [facility] Height 2011-09-06 15:17:00 152.40 cm [facility] Procedures Procedure Date / Time Performing Clinician Source Performed [facility] of Tonsillectomy Univers [facility] with adenoidectomy Physicians History of Cholecystectomy Unive [facility] Physicians History of Gastric bypass [facility] surgery Physicians History of Tubal ligation [facility] bilateral Physicians History of Stomach surgery Unive [facility] Physicians History of Hernia repair Univers [facility] Physicians History of Removal [facility] Physicians History of Inguinal hernia Unive [facility] repair Physicians History of Knee [employer] arthroscopy Physicians History of Carpal tunnel Univers [facility] surgery Physicians History of Epidural [employer] [place] steroid injection Physicians Encounters Start End Encounter Admission Attending Care Care Encounter Source Date/Time Date/Time Type Type Clinicians Facility Department ID 2020-09-15 2020-09-15 Kevin HANNA 1.2.840.114 [id number] 00:00:00 00:00:00 Only Unassigned, JOE 350.1.13.10 [facility] 4.2.7.2.686 [id number] [id number] 2019-10-31 2019-10-31 Emergency Emerson Newman [facility] 1.2.840. 114 [id number] 17:00:34 23:03:00 Martha Henry Cori 350.1.13.10 [place] 4.2.7.2.686 [place] [id number] [id number] 2019-07-23 2019-07-23 [facility] [id number] 10:00:00 10:00:00 t Specialty/U Brie kes - Specialty rology Mem[facility] /Urology Clinic l Clinic Outpati ent Clinics 2019-02-14 2019-02-14 Transition Steven Mack 1.2.840.114 [id number] 00:00:00 00:00:00 of Care Silvana Duarte 350.1.13.10 [place] 4.2.7.2.686 [id number] 2019-02-11 2019-02-13 [facility] 1.2.840.114 [id number] 08:42:00 18:25:00 Encounter Jasper Persaud 350.1.13.10 [place] 4.2.7.2.686 [place] [id number] [id number] 2019-02-11 2019-02-11 Anesthesia [facility] 1.2.840.114 [id number] 09:40:00 11:45:00 Kulwinder Persaud 350.1.13.10 [place] 4.2.7.2.686 Surgical [id number] [place] 020 2019-02-11 2019-02-11 Orders Doctor HANNA 1.2.840.114 [id number] 00:00:00 00:00:00 Only Unassigned, JOE 350.1.13.10 [place] [address].2.7.2.686 [id number] [id number] 2019-02-07 2019-02-07 [facility] 1.2.840.114 [id number] 09:30:00 23:59:00 Encounter Jasper Persaud 350.1.13.10 [place] 4.2.7.2.686 [place] [id number] [id number] 2019-02-07 2019-02-07 Floor Sweeper 1, Adc Lab [facility] 1.2.840.114 [id number] 14:54:45 15:09:45 Visit Cori 350.1.13.10 [place] 4.2.7.2.686 [place] [id number] 2019-02-07 2019-02-07 [facility] 1.2.840.114 [id number] 08:00:00 09:29:00 Encounter Jasper Persaud 350.1.13.10 [place] 4.2.7.2.686 [place] [id number] 2019-02-04 2019-02-04 Telephone [facility] 1.2.840.114 [id number] 00:00:00 00:00:00 [facility] 350.1.13.10 Surgical 4.2.7.2.686 Specialti [id number] es 198 [place] 2019-02-04 2019-02-04 [facility] 1.2.840.114 [id number] 00:00:00 00:00:00 [facility] 350.1.13.10 Surgical 4.2.7.2.686 Specialti [id number] es 198 [place] 2019-02-01 2019-02-01 Prep For [facility] 1.2.840.114 [id number] 00:00:00 00:00:00 Surgery [facility] 350.1.13.10 Surgical 4.2.7.2.686 Specialti [id number] es 198 [place] 2019-01-29 2019-01-29 [facility] 1.2.840.114 [id number] 14:49:38 23:59:00 Encounter Jasper Persaud 350.1.13.10 [place] 4.2.7.2.686 [place] [id number] 807 2019-01-29 2019-01-29 [facility] 1.2.840.114 [id number] 14:43:43 14:48:00 Encounter [facility] 350.1.13.10 Surgical 4.2.7.2.686 Specialti [id number] es 809 [place] 2019-01-29 2019-01-29 [facility] 1.2.840.114 [id number] 13:52:01 14:42:00 Encounter [facility] 350.1.13.10 Surgical 4.2.7.2.686 Specialti [id number] es 809 [place] 2019-01-29 2019-01-29 Office [facility] 1.2.840.114 [id number] 12:33:53 13:52:08 Visit [facility] 350.1.13.10 Surgical 4.2.7.2.686 Specialti [id number] es 198 [place] 2019-01-23 2019-01-23 Orders Doctor CYNDI 1.2.840.114 [id number] 00:00:00 00:00:00 Only Unassigned, JOE 350.1.13.10 [facility] 4.2.7.2.686 [id number] [id number] 2018-11-19 2018-11-19 Orders Doctor CYNDI 1.2.840.114 [id number] 00:00:00 00:00:00 Only Unassigned, JOE 350.1.13.10 [facility] 4.2.7.2.686 [id number] [id number] 2018-04-12 2018-04-12 Appointmichael QUINTEROS [facility]TP [id number] Univers 16:00:00 16:00:00 t; PEARL CANTRELL [facility], Surgery - Frank as PEARL CANTRELL Demetrius Physic i Trace 1 ans 2017-12-26 2017-[facility] [id number] Univers 09:45:00 09:45:00 t; PEARL CANTRELL [place] PEARL CANTRELL Physici ans 2017-12-19 2017-12-19 AppointCULLEN Ramirez UTP [id number] Univers 09:30:00 09:30:00 t; PEARL CANTRELL [place] PEARL CANTRELL Physici ans 2017-12-12 2017-12-12 AppointCULLEN Ramirez [facility]TP [id number] Univers 09:45:00 09:45:00 t; ÓSCAR, Deshawn Montez NP Physici ans 2017-08-29 2017-08-29 [facility] NELI, [facility] [id number] Univers 10:45:00 10:45:00 t; PEARL CANTRELL [place] SEAN, NP Physici ans 2016-01-04 2016-01-04 [facility] [id number] 17:10:00 18:50:00 Valente Tyler 20 2013-06-13 2013-06-20 Outpatient [facility] [id number] Memoria 20:10:00 10:30:00 J[facility] 02 l [facility] Rehabilit Rehabilita So uthwe ation ion [facility] Rehabil itation 2013-05-31 2013-06-13 Outpatient [facility] [id number] Memoria 09:55:00 20:00:00 [facility] l [facility] Results Test Description Test Time Test Comments Results Result Comments Source CULTURE, SPUTUM 2020-08-02 15:48:00 Test Item Value Reference Range Interpretation Comme nts CULTSPUT (test ======== code = CULTSPUT) CULTSPUT (test ======== code = [id number]) [facility] 2020-08-01 1042 HEAVY GROWTH [facility] 2020-08-01 1043 MRSA ISOLATED IN SPUTUM CULTURE; CONTACT PRECAUTIONS INDICATED FOR INPATIENTS CALLED INFECTION PREVENTION @10:42 [facility] 2020-08-01 1044 ID AND/OR SENSITIVITY TO FOLLOW PRELIMINARY REPORT CULTURE, URINE 2020-08-02 15:42:00 Test Item Value Reference Range Interpretation Comments CULTURIN (test code = CULTURIN) CULTURIN (test code = [id number]) [facility] 2020-08-01 1026 >100,000 CFU/ML [facility] 2020-08-01 1027 OXIDASE NEGATIVE GRAM NEGATIVE BACILLI ISOLATED PRELIMINARY REPORT [facility] 2020-08-01 1028 ID AND/OR SENSITIVITY TO FOLLOW PRELIMINARY REPORT BLOOD [id number] 15:35:00 Test Item Value Reference Range Interpretation Comments Report Text (test [facility] 2020-07-31 code = Report Text) Report Text7 (test BLOOD CULTURES HELD FOR code = Report 5 DAYS BEFORE FINAL Text7) Report Text8 (test code = Report Text8) Report Text9 (test [employer] OF code = Report MICROBIOLOGY SUGGESTS THAT Text9) Report Text10 (test MOST CASES OF BACTEREMIA code = Report ARE DETECTED BY USING Text10) Report Text11 (test THREE SETS OF SEPARATELY code = Report COLLECTED BLOOD CULTURES. Text11) Report Text12 (test [facility] 2020-07-31 84 code = Report Text12) Report Text13 (test CONVERSELY, A SINGLE BLOOD code = Report CULTURE MAY MISS Text13) Report Text14 (test INTERMITTENTLY OCCURRING code = Report BACTEREMIA AND MAKE Text14) Report Text15 (test IT DIFFICULT TO INTERPRET code = Report THE CLINICAL Text15) Report Text16 (test SIGNIFICANCE OF CERTAIN code = Report ISOLATED ORGANISMS. Text16) Report Text17 (test code = Report Text17) Report Text18 (test [facility] 2020-07-31 849 code = Report Text18) Report Text19 (test COLLECTION SITE code = Report UNSPECIFIED Text19) Report Text20 (test AVEL 2020-08-01 347 code = Report Text20) Report Text21 (test POSITIVE BLOOD CULTURE code = Report GRAM STAIN RESULT Text21) Report Text22 (test GRAM POSITIVE COCCI SEEN code = Report ON SMEAR Text22) Report Text23 (test PRELIMINARY REPORT; code = Report Text23) Report Text24 (test PATIENT DISCHARGED code = Report Text24) Report Text25 (test [facility] 2020-08-01 1158 code = Report Text25) Report Text26 (test code = Report Text26) Report Text27 (test 2 BLOOD CULTURE BOTTLES code = Report WERE COLLECTED, ONLY Text27) Report Text28 (test ONE BOTTLE IS code = Report POSITIVE FOR GROWTH Text28) Report Text29 (test code = Report Text29) Report Text30 (test [facility] 2020-08-01 1159 code = Report Text30) Report Text31 (test CATALASE POSITIVE, code = Report COAGULASE NEGATIVE Text31) Report Text32 (test GRAM POSITIVE COCCI code = Report ISOLATED Text32) Report Text33 (test (PROBABLE ST.EPIDERMIDIS code = Report OR OTHER COAG NEG Text33) Report Text34 (test STAPHYLOCOCCUS) code = Report Text34) Report Text35 (test PRELIMINARY REPORT code = Report Text35) Report Text36 (test CWJ 2020-08-02 1534 code = Report Text36) Report Text37 (test COAGULASE NEGATIVE code = Report STAPHYLOCOCCUS ISOLATED Text37) Report Text38 (test CWJ 2020-08-02 1535 code = Report Text38) Report Text39 (test SEE SENSITIVITY FOR BLOOD code = Report CULT #[id number] Text39) Report Text40 (test , COLLECTED code = Report 07/31/2020 Text40) Report Text41 (test FINAL REPORT code = Report Text41) BLOOD [id number] 15:34:00 Test Item Value Reference Range Interpretation Comments CULTBLD2 (test code = CULTBLD2) CULTBLD2 (test code = [id number]) [facility] 2020-07-31 845 BLOOD CULTURES HELD FOR 5 DAYS BEFORE FINAL [employer] SOCI[employer]Y OF MICROBIOLOGY SUGGESTS THAT MOST CASES OF BACTEREMIA ARE DETECTED BY USING THREE SETS OF SEPARATELY COLLECTED BLOOD CULTURES. MOA 2020-07-31 846 CONVERSELY, A SINGLE BLO OD CULTURE MAY MISS INTERMITTENTLY OCCURRING BACTEREMIA AND MAKE IT DIFFICULT TO INTERPRET THE CLINICAL SIGNIFICANCE OF CERTAIN ISOLATED ORGANISMS. MOA 2020-07-31 847 DRAWN FROM [facility] 2020-08-01 155 POSITIVE BLOOD CULTURE GRAM STAIN RESULT GRAM POSITIVE COCCI SEEN ON SMEAR PRELIMINARY REPORT; PATIENT DISCHARGED [facility] 2020-08-01 1158 2 BLOOD CULTURE BOTTLES WERE COLLECTED, ONLY ONE BOTTLE IS POSITIVE FOR GROWTH [facility] 2020-08-01 1159 CATALASE POSITIVE, COAGULASE NEGATIVE GRAM POSITIVE COCCI ISOLATED (PROBABLE ST.EPIDERMIDIS OR OTHER COAG NEG STAPHYLOCOCCUS)PRELIMINARY REPORT [facility] 2020-08-01 1200 ID AND/OR SENSITIVITY TO FOLLOW PRELIMINARY REPORT [id number] 10:03:00 Test Item Value Reference Range Interpretation Comments WBC (test code = 7.9 K/UL 3.5-10.9 WBC) RBC (test code = 3.47 M/UL 4.0-5.0 L RBC) HGB (test code = 10.4 G/DL 11.5-15.5 L HGB) HCT (test code = 33.3 % 34-46 L HCT) MCV (test code = 96.0 FL 80-98 MCV) MCH (test code = 30.0 PG 28-32 MCH) MCHC (test code = 31.2 G/DL 32.5-36.5 L MCHC) RDW (test code = 15.7 % 11.5-14.5 H RDW) PLT (test code = 197 K/UL 150-450 PLT) MPV (test code = 12.7 FL 7.4-10.4 H MPV) MANDIFF (test code = NO MANDIFF) SCAN (test code = NO SCAN) NEUT% (test code = 66.9 % 40-75 NEUT%) LYMPH% (test code = 18.4 % 24-44 L LYMPH%) MONO% (test code = 8.1 % 0-13 MONO%) EOS% (test code = 4.3 % 0-4 H EOS%) BASO % (test code = 0.5 % 0-2 BASO%) IG (test code = IG) 0 % 0-1 IG% (test code = 1.8 % 0-1 H IG% = Metam yelocytes, IG%) Myelocytes, and Promyelocytes. (Immature neutr ophils not including " bands".) > 3% IG indic ates risk of sepsis NRBC% (test code = 0 /100 WBC NRBC%) ABS NEUT (test code 5.3 K/UL 1.2-7.2 = NEUT) BMP, BASIC METABOLIC [id number] 09:17:00 Test Item Value Reference Range Interpretation Comments SODIUM (test code 142 MMOL/L 137-145 = NA) K+ (test code = 3.5 MMOL/L 3.5-5.1 KSERUM) CHLORIDE (test 102 MMOL/L 98-107 code = CL) CO2 (test code = 36 MMOL/L 22-30 H CO2) BUN (test code = 33 MG/DL 7-17 H BUN) CREA (test code = 0.7 MG/DL 0.7-1.2 CREA) GLUCOSE (test code 126 MG/DL 70-99 H Fasting glucose = GLUCOSE) normal <100 MG/ DL- [place] recommendation* * CALCIUM (test code 8.3 MG/DL 8.4-10.2 L = CABLOOD) GFR (test code = 88 A GFR of >9 0 GFR) mL/min/1.73m2 mL/min/1.73m2 is considered norm al. The GFR calcula tion on patients ove r 70 years of age is not validated by e production material handler an d may not represent t he patients true r enal function. WHOLE BLOOD [id number] 06:10:00 Test Item Value Reference Range Interpretation Comments WHOLE BLOOD GLUCOSE 134 MG/DL 70-99 H Fastin g glucose (test code = POC GLU) normal <100 MG/DL- [place] recommend ation GRAM [id number] 16:04:00 Test Item Value Reference Range Interpretation Comments Report Text (test code CWJ 2020-07-31 1604 = Report Text) Report Text7 (test FEW WBC SEEN code = Report Text7) Report Text8 (test CWJ 2020-07-31 1605 code = Report Text8) Report Text9 (test MANY GRAM POSITIVE code = Report Text9) COCCI SEEN [id number] 08:28:00 Test Item Value Reference Range Interpretation Comments GLUCOSE (test code = URGLU) NEGATIVE MG/DL NEG-100 BILIRUBN (test code = URBILI) NEGATIVE NEGATIVE KETONE (test code = URKET) NEGATIVE MG/DL NEGATIVE BLOOD (test code = URBLD) TRACE UR PH (test code = URPH) 5.5 5.0-7.5 PROTEIN (test code = URPRO) NEGATIVE MG/DL NEGATIVE NITRITES (test code = URNIT) NEGATIVE NEGATIVE UROBILINGEN (test code = 0.2 EU/DL 0.2-1.0 URURO) LEUKOCYT (test code = URLEU) TRACE NEGATIVE UA COLOR (test code = UA YELLOW YELLOW COLOR) CLARITY (test code = CLARITY) CLEAR CLEAR SP GRAV (test code = URSPGRAV) 1.010 1.000-1.025 UAMICRO (test code = UAMICRO) YES WBC (test code = URWBC) 5 /HPF 0-5 RBC (test code = URRBC) 2 /HPF 0-2 CASTS (test code = CAST) 0 /LPF 0-3 UR EPI (test code = EPI) 15 /LPF BACTERIA (test code = NEGATIVE NONE BACTERIA) [id number] 07:31:00 Test Item Value Reference Range Interpretation Comments PROCALCITONIN (test 0.410 ng/mL 0.0-0.5 0 - 0.5 ng/mL- Low code = PROCAL) risk for prog ression to severe sepsi s and/or septic s hock. PCT >0.5 is considered elev ated. 2.0 - 10 ng/mL- High risk for progre ssion to severe sepsi s and/or septic s hock. >/= 10 ng/mL - Severe sepsis o r septic shock. H igh risk of Mortali ty. PCT levels <0.5 ng/mL do not ex clude an infection. CHEST 1 VIEW [id number] 06:14:00 [facility] : 1950 [facility] [place] [id number] IMAGING REPORTPatient Name: Kristan COLLAZO of Service: [id number]: 70 Sex: F Order #: [id number] Room: [facility] 2SDOB: 1950 X-Ray Number: [id number] Record Number: [id number] Hospital Number: [id number] Physician: Jaswinder SHABAZZ Physician: Armando RUGGIERO one view 07/31/2020History: Covid 19 infection, pneumonia, intubationComparison: The prior dayTECHNIQUE: Semierect AP portable chest x-rayFINDINGS:Support devices are unchanged.Cardiac, hilar, andmediastinal structures are stable. Hazy opacitiespersist in the lungs, apparently due to pneumonia. Findings are still mostpronounced in the bases. No new bony or soft tissue abnormalities areidentified.Impression:No adverse change.Electronically Signed By: Yeison Srivastava M.D., 07/31/2020 6:11 AMLegally authenticated by LINO PETE 2020-07-31 06:11:31 [id number] 05:23:00 Test Item Value Reference Range Interpretation Comments SODIUM (test code 142 MMOL/L 137-145 = NA) K+ (test code = 3.7 MMOL/L 3.5-5.1 KSERUM) CHLORIDE (test 105 MMOL/L 98-107 code = CL) CO2 (test code = 29 MMOL/L 22-30 CO2) BUN (test code = 31 MG/DL 7-17 H BUN) CREA (test code = 0.8 MG/DL 0.7-1.2 CREA) GLUCOSE (test code 187 MG/DL 70-99 H Fasting glucose = GLUCOSE) normal <100 MG/ DL- [place] [employer] recommendation* * CALCIUM (test code 8.6 MG/DL 8.4-10.2 = CABLOOD) TOTPROT (test code 6.1 G/DL 6.3-8.2 L = TOTPROT) ALBUMIN (test code 3.1 G/DL 3.5-5.0 L = ALBSERUM) BILITOT (test code 1.6 MG/DL 0.2-1.3 H = BILITOT) AST (test code = 37 U/L 15-46 AST) PHOSALK (test code 114 U/L 38-126 = PHOSALK) ALTV (test code = 28 U/L 13-69 ALTV) GFR (test code = 76 A GFR of >9 0 GFR) mL/min/1.73m2 mL/min/1.73m2 is considered norm al. The GFR calcula tion on patients ove r 70 years of age is not validated by e production material handler an d may not represent t he patients true r enal function. RESULT VERIFIED BY REPEAT ANALYSIS ON ALTERNATE INSTRUMENT.[id number] 05:23:00 Test Item Value Reference Range Interpretation Comments MG (test code = MG) 2.1 mg/dL 1.6-2.3 [id number] 05:23:00 Test Item Value Reference Range Interpretation Comments PHOSPHOR (test code = PHOSPHOR) 2.9 MG/DL 2.5-4.5 [id number] 03:57:00 Test Item Value Reference Range Interpretation Comments WBC (test code = 10.7 K/UL 3.5-10.9 WBC) RBC (test code = 3.76 M/UL 4.0-5.0 L RBC) HGB (test code = 11.3 G/DL 11.5-15.5 L HGB) HCT (test code = 35.8 % 34-46 HCT) MCV (test code = 95.2 FL 80-98 MCV) MCH (test code = 30.1 PG 28-32 MCH) MCHC (test code = 31.6 G/DL 32.5-36.5 L MCHC) RDW (test code = 16.6 % 11.5-14.5 H RDW) PLT (test code = 236 K/UL 150-450 PLT) MPV (test code = 12.3 FL 7.4-10.4 H MPV) MANDIFF (test code = NO MANDIFF) SCAN (test code = NO SCAN) NEUT% (test code = 76.7 % 40-75 H NEUT%) LYMPH% (test code = 11.2 % 24-44 L LYMPH%) MONO% (test code = 7.0 % 0-13 MONO%) EOS% (test code = 4.1 % 0-4 H EOS%) BASO % (test code = 0.3 % 0-2 BASO%) IG (test code = IG) 0 % 0-1 IG% (test code = 0.7 % 0-1 IG% = Metam yelocytes, IG%) Myelocytes, and Promyelocytes. (Immature neutr ophils not including " bands".) > 3% IG indic ates risk of sepsis NRBC% (test code = 0 /100 WBC NRBC%) ABS NEUT (test code 8.2 K/UL 1.2-7.2 H = NEUT) BLOOD GAS [id number] 03:03:00 Test Item Value Reference Range Interpretation Comments SITE (test code = LRAD See_Comment [Automate d message] SITE) The system [employer] generated this result transmitted ref erence range: -SITE. T he reference range was not used to interpr et this result as normal/abnormal . ALLENS (test code = POS ALLENS) O2 EQUIP (test code VENT O2-DEVICE = O2 EQUIP) FIO2 (test code = 30 % FIO2) A/C (test code = 12 A/C) PT. RR (test code = 34 PT. RR) PEEP (test code = 5 PEEP) VT (test code = VT) 350 PIP (test code = 21 PIP) VMIN (test code = 11.8 VMIN) PH (test code = 7.45 7.35-7.45 BGPH) PCO2 (test code = 39 MMHG 34.0-45.0 PCO2) PO2 (test code = 103 MMHG 79-87 H PO2) HCO3 (test code = 27.1 mmol/L 22.0-26.0 H HCO3) BE (test code = BE) 2.9 mmol/L -2.0-2.0 H THB (test code = 11.3 G/DL 12-16 L THB) % 02 HB (test code 96.1 % 96.0-100.0 = ABGSAT) %COHB (test code = 2.0 % See_Comment H [Automat ed message] BGCO) The system [employer] generated this result transmitted ref erence range: -1.5. Th e reference range was not used to interpr et this result as normal/abnormal . % MET HB (test code 0.7 % 0.4-1.5 = %MET HB) CAO2 (test code = 15.4 VOL% 15.7-21.6 L CAO2) PF/RATIO (test code 343.0 = PF/RATIO) ANTICOAG?: LAST DOSE?:WHOLE BLOOD [id number] 02:35:00 Test Item Value Reference Range Interpretation Comments WHOLE BLOOD GLUCOSE 141 MG/DL 70-99 Fastin g glucose (test code = POC GLU) normal <100 MG/DL- [employer] [place] [employer] recommend ation [id number] 18:29:00 Test Item Value Reference Range Interpretation Comments K+ (test code = KSERUM) 3.9 MMOL/L 3.5-5.1 [id number] 18:29:00 Test Item Value Reference Range Interpretation Comments MG (test code = MG) 2.1 mg/dL 1.6-2.3 WHOLE BLOOD [id number] 18:10:00 Test Item Value Reference Range Interpretation Comments WHOLE BLOOD GLUCOSE 116 MG/DL 70-99 H Fastin g glucose (test code = POC GLU) normal <100 MG/DL- [employer] [place] recommend ation WHOLE BLOOD [id number] 13:20:00 Test Item Value Reference Range Interpretation Comments WHOLE BLOOD GLUCOSE 130 MG/DL 70-99 H Fastin g glucose (test code = POC GLU) normal <100 MG/DL- [employer] [place] [employer] recommend ation WHOLE BLOOD [id number] 12:56:00 Test Item Value Reference Range Interpretation Comments WHOLE BLOOD GLUCOSE 130 MG/DL 70-99 H Fastin g glucose (test code = POC GLU) normal <100 MG/DL- [employer] [place] [employer] recommend ation WHOLE BLOOD [id number] 12:55:00 Test Item Value Reference Range Interpretation Comments WHOLE BLOOD GLUCOSE 130 MG/DL 70-99 H Fastin g glucose (test code = POC GLU) normal <100 MG/DL- [employer] [place] [employer] recommend ation WHOLE BLOOD [id number] 12:55:00 Test Item Value Reference Range Interpretation Comments WHOLE BLOOD GLUCOSE 120 MG/DL 70-99 H Fastin g glucose (test code = POC GLU) normal <100 MG/DL- [employer] recommend ation WHOLE BLOOD [id number] 12:55:00 Test Item Value Reference Range Interpretation Comments WHOLE BLOOD GLUCOSE 184 MG/DL 70-99 H Fastin g glucose (test code = POC GLU) normal <100 MG/DL- [employer] [place] [employer] recommend ation WHOLE BLOOD [id number] 12:54:00 Test Item Value Reference Range Interpretation Comments WHOLE BLOOD GLUCOSE 130 MG/DL 70-99 H Fastin g glucose (test code = POC GLU) normal <100 MG/DL- [employer] recommend ation [id number] 10:57:00 Test Item Value Reference Range Interpretation Comments K+ (test code = KSERUM) 3.5 MMOL/L 3.5-5.1 [id number] 10:57:00 Test Item Value Reference Range Interpretation Comments MG (test code = MG) 2.0 mg/dL 1.6-2.3 CHEST 1 VIEW [id number] 06:21:00 [facility] 1950 [facility] [place], [place] [address]CZQTFEIWPE IMAGING REPORTPatient Name: ANGY COLLAZODate of Service: [id number]: 70 Sex: F Order #: [id number] Room: [facility] 2SDOB: 1950 X-Ray Number: [id number] Record Number: [id number] Hospital Number: [id number] Physician: Jaswinder SHABAZZ Physician: Karissa COYNE one view KrestaHistory: Covid 19 infection, pneumonia, intubationComparison: The prior dayTECHNIQUE: Semierect AP portable chest x-rayFINDINGS:Support devices are unchanged.Cardiac, hilar, and mediastinal structures are stable. Hazy opacitiespersist in the lungs, apparently due to pneumonia. Findings are still mostpronounced in the bases. No new bony or soft tissue abnormalities areidentified.Impression:No adverse change.Electronically Signed By: Yeison Srivastava M.D., 07/30/2020 6:19 AMLegally authenticated by LINO PETE 2020-07-30 06:19:07 [id number] 04:26:00 Test Item Value Reference Range Interpretation Comments PHOSPHOR (test code = PHOSPHOR) 2.8 MG/DL 2.5-4.5 BMP, BASIC METABOLIC [id number] 04:25:00 Test Item Value Reference Range Interpretation Comments SODIUM (test code 141 MMOL/L 137-145 = NA) K+ (test code = 3.2 MMOL/L 3.5-5.1 L KSERUM) CHLORIDE (test 104 MMOL/L 98-107 code = CL) CO2 (test code = 29 MMOL/L 22-30 CO2) BUN (test code = 26 MG/DL 7-17 H BUN) CREA (test code = 0.8 MG/DL 0.7-1.2 CREA) GLUCOSE (test code 120 MG/DL 70-99 H Fasting glucose = GLUCOSE) normal <100 MG/ DL- [employer] recommendation* * CALCIUM (test code 8.0 MG/DL 8.4-10.2 L = CABLOOD) GFR (test code = 76 A GFR of >9 0 GFR) mL/min/1.73m2 mL/min/1.73m2 is considered norm al. The GFR calcula tion on patients ove r 70 years of age is not validated by e production material handler an d may not represent t he patients true r enal function. [id number] 04:25:00 Test Item Value Reference Range Interpretation Comments MG (test code = MG) 2.0 mg/dL 1.6-2.3 [id number] 03:29:00 Test Item Value Reference Range Interpretation Comments WBC (test code = 9.0 K/UL 3.5-10.9 WBC) RBC (test code = 3.48 M/UL 4.0-5.0 L RBC) HGB (test code = 10.6 G/DL 11.5-15.5 L HGB) HCT (test code = 32.7 % 34-46 L HCT) MCV (test code = 94.0 FL 80-98 MCV) MCH (test code = 30.5 PG 28-32 MCH) MCHC (test code = 32.4 G/DL 32.5-36.5 L MCHC) RDW (test code = 16.7 % 11.5-14.5 H RDW) PLT (test code = 166 K/UL 150-450 PLT) MPV (test code = 12.5 FL 7.4-10.4 H MPV) MANDIFF (test code = NO MANDIFF) SCAN (test code = NO SCAN) NEUT% (test code = 74.7 % 40-75 NEUT%) LYMPH% (test code = 12.3 % 24-44 L LYMPH%) MONO% (test code = 8.4 % 0-13 MONO%) EOS% (test code = 3.6 % 0-4 EOS%) BASO % (test code = 0.3 % 0-2 BASO%) IG (test code = IG) 0 % 0-1 IG% (test code = 0.7 % 0-1 IG% = Metam yelocytes, IG%) Myelocytes, and Promyelocytes. (Immature neutr ophils not including " bands".) > 3% IG indic ates risk of sepsis NRBC% (test code = 0 /100 WBC NRBC%) ABS NEUT (test code 6.7 K/UL 1.2-7.2 = NEUT) BLOOD GAS [id number] 02:59:00 Test Item Value Reference Range Interpretation Comments SITE (test code = LRAD See_Comment [Automate d message] SITE) The system [employer] generated this result transmitted ref erence range: -SITE. T he reference range was not used to interpr et this result as normal/abnormal . ALLENS (test code = POS ALLENS) O2 EQUIP (test code VENT O2-DEVICE = O2 EQUIP) FIO2 (test code = 30 % FIO2) A/C (test code = 16 A/C) PT. RR (test code = 30 PT. RR) PEEP (test code = 5 PEEP) VT (test code = VT) 380 PIP (test code = 27 PIP) VMIN (test code = 11.1 VMIN) PH (test code = 7.53 7.35-7.45 H BGPH) PCO2 (test code = 35 MMHG 34.0-45.0 PCO2) PO2 (test code = 99 MMHG 79-87 H PO2) HCO3 (test code = 29.2 mmol/L 22.0-26.0 H HCO3) BE (test code = BE) 6.3 mmol/L -2.0-2.0 H THB (test code = 11.0 G/DL 12-16 L THB) % 02 HB (test code 95.7 % 96.0-100.0 L = ABGSAT) %COHB (test code = 1.9 % See_Comment H [Automat ed message] BGCO) The system [employer] generated this result transmitted ref erence range: -1.5. Th e reference range was not used to interpr et this result as normal/abnormal . % MET HB (test code 1.2 % 0.4-1.5 = %MET HB) CAO2 (test code = 14.9 VOL% 15.7-21.6 L CAO2) PF/RATIO (test code 330.0 = PF/RATIO) ANTICOAG?: LAST DOSE?:WHOLE BLOOD [id number] 12:55:00 Test Item Value Reference Range Interpretation Comments WHOLE BLOOD GLUCOSE 145 MG/DL 70-99 H Fastin g glucose (test code = POC GLU) normal <100 MG/DL- [employer] recommend ation WHOLE BLOOD [id number] 11:20:00 Test Item Value Reference Range Interpretation Comments WHOLE BLOOD GLUCOSE 150 MG/DL 70-99 H Fastin g glucose (test code = POC GLU) normal <100 MG/DL- [employer] recommend ation CHEST 1 VIEW [id number] 06:58:00 [facility] : 1950 Sex: F[address] [address]HHBIDJOZJY IMAGING REPORTPatient Name: ANGY COLLAZODate of Service: [id number]: 70 Sex: F Order #: [id number] Room: [facility] 2SDOB: 1950 X-Ray Number: [id number] Record Number: [id number] Hospital Number: [id number] Physician: Jaswinder SHABAZZ Physician: Karissa COYNE one view 07/29/2020History: Covid 19 infection, pneumonia, intubationComparison: The prior dayTECHNIQUE: Semierect AP portable chest x-rayFINDINGS:Support devices are unchanged.Cardiac, hilar,and mediastinal structures are stable. Hazy opacitiespersist in the lungs, apparently due to pneumonia. Findings are still mostpronounced in the bases. No new bony or soft tissue abnormalities areidenti fied.Impression:No adverse change.Electronically Signed By: Yeison Srivastava M.D., 07/29/2020 6:55 AMLegally authenticated by LINO PETE 2020-07-29 06:55:59MAGNESIUM 2020-07-29 06:18:00 Test Item Value Reference Range Interpretation Comments MG (test code = MG) 2.1 mg/dL 1.6-2.3 WHOLE BLOOD [id number] 05:50:00 Test Item Value Reference Range Interpretation Comments WHOLE BLOOD GLUCOSE 166 MG/DL 70-99 H Fastin g glucose (test code = POC GLU) normal <100 MG/DL- [employer] recommend ation BMP, BASIC METABOLIC [id number] 03:17:00 Test Item Value Reference Range Interpretation Comments SODIUM (test code 137 MMOL/L 137-145 = NA) K+ (test code = 3.6 MMOL/L 3.5-5.1 KSERUM) CHLORIDE (test 104 MMOL/L 98-107 code = CL) CO2 (test code = 28 MMOL/L 22-30 CO2) BUN (test code = 29 MG/DL 7-17 H BUN) CREA (test code = 0.9 MG/DL 0.7-1.2 CREA) GLUCOSE (test code 164 MG/DL 70-99 H Fasting glucose = GLUCOSE) normal <100 MG/ DL- [employer] recommendation* * CALCIUM (test code 8.3 MG/DL 8.4-10.2 L = CABLOOD) GFR (test code = 66 A GFR of >9 0 GFR) mL/min/1.73m2 mL/min/1.73m2 is considered norm al. The GFR calcula tion on patients ove r 70 years of age is not validated by e production material handler an d may not represent t he patients true r enal function. [id number] 02:50:00 Test Item Value Reference Range Interpretation Comments WBC (test code = 8.9 K/UL 3.5-10.9 WBC) RBC (test code = 3.57 M/UL 4.0-5.0 L RBC) HGB (test code = 10.9 G/DL 11.5-15.5 L HGB) HCT (test code = 33.9 % 34-46 L HCT) MCV (test code = 95.0 FL 80-98 MCV) MCH (test code = 30.5 PG 28-32 MCH) MCHC (test code = 32.2 G/DL 32.5-36.5 L MCHC) RDW (test code = 16.0 % 11.5-14.5 H RDW) PLT (test code = 150 K/UL 150-450 PLT) MPV (test code = 12.5 FL 7.4-10.4 H MPV) MANDIFF (test code = NO MANDIFF) SCAN (test code = NO SCAN) NEUT% (test code = 77.8 % 40-75 H NEUT%) LYMPH% (test code = 9.6 % 24-44 L LYMPH%) MONO% (test code = 7.0 % 0-13 MONO%) EOS% (test code = 4.7 % 0-4 H EOS%) BASO % (test code = 0.2 % 0-2 BASO%) IG (test code = IG) 0 % 0-1 IG% (test code = 0.7 % 0-1 IG% = Metam yelocytes, IG%) Myelocytes, and Promyelocytes. (Immature neutr ophils not including " bands".) > 3% IG indic ates risk of sepsis NRBC% (test code = 0 /100 WBC NRBC%) ABS NEUT (test code 7.0 K/UL 1.2-7.2 = NEUT) BLOOD GAS [id number] 02:48:00 Test Item Value Reference Range Interpretation Comments SITE (test code = LRAD See_Comment [Automate d message] SITE) The system [employer] generated this result transmitted ref erence range: -SITE. T he reference range was not used to interpr et this result as normal/abnormal . ALLENS (test code = POS ALLENS) O2 EQUIP (test code VENT O2-DEVICE = O2 EQUIP) FIO2 (test code = 30 % FIO2) A/C (test code = 16 A/C) PT. RR (test code = 27 PT. RR) PEEP (test code = 5 PEEP) VT (test code = VT) 380 PIP (test code = 20 PIP) VMIN (test code = 10.4 VMIN) PH (test code = 7.52 7.35-7.45 H BGPH) PCO2 (test code = 33 MMHG 34.0-45.0 L PCO2) PO2 (test code = 88 MMHG 79-87 H PO2) HCO3 (test code = 26.9 mmol/L 22.0-26.0 H HCO3) BE (test code = BE) 4.2 mmol/L -2.0-2.0 H THB (test code = 11.1 G/DL 12-16 L THB) % 02 HB (test code 95.6 % 96.0-100.0 L = ABGSAT) %COHB (test code = 1.9 % See_Comment H [Automat ed message] BGCO) The system [employer] generated this result transmitted ref erence range: -1.5. Th e reference range was not used to interpr et this result as normal/abnormal . % MET HB (test code 0.7 % 0.4-1.5 = %MET HB) CAO2 (test code = 15.0 VOL% 15.7-21.6 L CAO2) PF/RATIO (test code 293.0 = PF/RATIO) ANTICOAG?: LAST DOSE?:WHOLE BLOOD [id number] 01:25:00 Test Item Value Reference Range Interpretation Comments WHOLE BLOOD GLUCOSE 130 MG/DL 70-99 H Fastin g glucose (test code = POC GLU) normal <100 MG/DL- [employer] recommend ation WHOLE BLOOD [id number] 01:20:00 Test Item Value Reference Range Interpretation Comments WHOLE BLOOD GLUCOSE 140 MG/DL 70-99 H Fastin g glucose (test code = POC GLU) normal <100 MG/DL- [employer] recommend ation COVID SYMPTOMATIC ER [id number] 13:21:00 Test Item Value Reference Range Interpretation Comments CORONAVIRUS (COVID-19)BY POSITIVE A RES ULTS VERIFIED.C'd PCR (test code = TO Dayanara [id number]) Angel Luis-Nurse, ICU, @1319, 07/28/2020 , KF. WHOLE BLOOD [id number] 13:20:00 Test Item Value Reference Range Interpretation Comments WHOLE BLOOD GLUCOSE 124 MG/DL 70-99 H Fastin g glucose (test code = POC GLU) normal <100 MG/DL- [employer] recommend ation WHOLE BLOOD [id number] 13:20:00 Test Item Value Reference Range Interpretation Comments WHOLE BLOOD GLUCOSE 110 MG/DL 70-99 Fastin g glucose (test code = POC GLU) normal <100 MG/DL- [employer] recommend ation [id number] 13:00:00 Test Item Value Reference Range Interpretation Comments K+ (test code = KSERUM) 3.4 MMOL/L 3.5-5.1 L [id number] 13:00:00 Test Item Value Reference Range Interpretation Comments MG (test code = MG) 1.7 mg/dL 1.6-2.3 WHOLE BLOOD [id number] 11:20:00 Test Item Value Reference Range Interpretation Comments WHOLE BLOOD GLUCOSE 100 MG/DL 70-99 Fastin g glucose (test code = POC GLU) normal <100 MG/DL- [employer] recommend ation ABDOMEN [id number] 10:11:00 [facility] : 1950 Sex: F[address], [place] [address]QZCMBRRAXC IMAGING REPORTPatient Name: ANGY COLLAZODate of Service: [id number]: 70 Sex: F Order #: [id number] Room: [facility] 2SDOB: 1950 X-Ray Number: [id number] Record Number: [id number] Hospital Number: [id number] Physician: Jaswinder SHABAZZ Physician: Tamra COYNE.History: NG tube placement.Technique: Limited supine abdominal projection.Findings:The tip of the NG tube is in the gastric body near the antrum. The tube isappropriately position and ready for use.Electronically Signed By: Bhaskar Fletcher M.D., 07/28/2020 10:08 AMLegally authenticated by AYO Cheek 2020-07-28 10:08:46CHEST 1 VIEW [id number] 10:10:00 [facility] : 1950 Sex: F[address] [id number] IMAGING REPORTPatient Name: Kristan COLLAZO of Service: [id number]: 70 Sex: F Order #: [id number] Room: [facility] 2SDOB: 1950 X-Ray Number: [id number] Record Number: [id number] Hospital Number: [id number] Physician: Jaswinder SHABAZZ Physician: Rocky MEZAt:07/28/2020 9:55 AMHistory: Respiratory failure.Technique: Single AP chest projection.Compariso n:July 28, 2020.Findings:Interval tracheostomy placement. The device appears the midline. There isanNG tube which descends into the stomach. Right-sided central venouscatheter tip lies in the right atrium. Persistent strandy bibasilarinterstitial lung infiltrates.Impression:Interval tracheostomy place ment. The device appears appropriatelypositioned. No other interval change.Electronically Signed By:Bhaskar Fletcher M.D., 07/28/2020 10:08 AMLegally authenticated by AYO Cheek 2020-07-28 10:08:25PROTHROMBIN TIME WITH [id number] 08:25:00 Test Item Value Reference Range Interpretation Comments PROTHROMBIN TIME 13.5 SECONDS 10.1-12.7 H INR Usual R patricia = 2 (test code = PT) to 3 for pr evention of deep vein thrombosis (DVT ) INR (test code = INR) 1.2 [id number] 08:25:00 Test Item Value Reference Range Interpretation Comments PTT (test code = 24.7 SECONDS 25.0-36.5 L HEPARIN THE RAPEUTIC PTT) RANGE 57-92 SEC ONDS WHOLE BLOOD [id number] 08:15:00 Test Item Value Reference Range Interpretation Comments WHOLE BLOOD GLUCOSE 120 MG/DL 70-99 H Fastin g glucose (test code = POC GLU) normal <100 MG/DL- [employer] recommend ation CHEST 1 VIEW [id number] 07:15:00 [facility] : 1950 Sex: F[address] [id number] IMAGING REPORTPatient Name: ANGY COLLAZODate of Service: [id number]: 70 Sex: F Order #: [id number] Room: [facility] 2SDOB: 1950 X-Ray Number: [id number] Record Number: [id number] Hospital Number: [id number] Physician: Jaswinder SHABAZZ Physician: Karisas COYNE one view 07/28/2020History: Covid 19 infection, pneumonia, intubationComparison: The prior dayTECHNIQUE: Semierect AP portable chest x-rayFINDINGS:Right subclavian vein catheter is unchanged.Cardiac, hilar, and mediastinal structures are stable. Hazy opacitiespersist in the lungs, apparently due to pneumonia. Findings are still mostpronounced in the bases. No new bony or soft tissue abnormalities areidentified.Impression:No change.Electronically Signed By: Yeison Srivastava M.D., 07/28/2020 7:12 AMLegally authenticated by LINO PETE 2020-07-28 07:12:39BMP, BASIC METABOLIC [id number] 04:25:00 Test Item Value Reference Range Interpretation Comments SODIUM (test code 138 MMOL/L 137-145 = NA) K+ (test code = 3.4 MMOL/L 3.5-5.1 L KSERUM) CHLORIDE (test 104 MMOL/L 98-107 code = CL) CO2 (test code = 28 MMOL/L 22-30 CO2) BUN (test code = 33 MG/DL 7-17 H BUN) CREA (test code = 0.9 MG/DL 0.7-1.2 CREA) GLUCOSE (test code 111 MG/DL 70-99 H Fasting glucose = GLUCOSE) normal <100 MG/ DL- [employer] recommendation* * CALCIUM (test code 7.7 MG/DL 8.4-10.2 L = CABLOOD) GFR (test code = 66 A GFR of >9 0 GFR) mL/min/1.73m2 mL/min/1.73m2 is considered norm al. The GFR calcula tion on patients ove r 70 years of age is not validated by e production material handler an d may not represent t he patients true r enal function. [id number] 03:05:00 Test Item Value Reference Range Interpretation Comments WBC (test code = 7.4 K/UL 3.5-10.9 WBC) RBC (test code = 3.41 M/UL 4.0-5.0 L RBC) HGB (test code = 10.2 G/DL 11.5-15.5 L HGB) HCT (test code = 33.2 % 34-46 L HCT) MCV (test code = 97.4 FL 80-98 MCV) MCH (test code = 29.9 PG 28-32 MCH) MCHC (test code = 30.7 G/DL 32.5-36.5 L MCHC) RDW (test code = 16.2 % 11.5-14.5 H RDW) PLT (test code = 115 K/UL 150-450 L PLT) MPV (test code = 12.9 FL 7.4-10.4 H MPV) MANDIFF (test code = NO MANDIFF) SCAN (test code = NO SCAN) NEUT% (test code = 71.8 % 40-75 NEUT%) LYMPH% (test code = 13.6 % 24-44 L LYMPH%) MONO% (test code = 6.5 % 0-13 MONO%) EOS% (test code = 7.4 % 0-4 H EOS%) BASO % (test code = 0.3 % 0-2 BASO%) IG (test code = IG) 0 % 0-1 IG% (test code = 0.4 % 0-1 IG% = Metam yelocytes, IG%) Myelocytes, and Promyelocytes. (Immature neutr ophils not including " bands".) > 3% IG indic ates risk of sepsis NRBC% (test code = 0 /100 WBC NRBC%) ABS NEUT (test code 5.3 K/UL 1.2-7.2 = NEUT) BLOOD GAS [id number] 02:55:00 Test Item Value Reference Range Interpretation Comments SITE (test code = LRAD See_Comment [Automate d message] SITE) The system [employer] generated this result transmitted ref erence range: -SITE. T he reference range was not used to interpr et this result as normal/abnormal . ALLENS (test code = POS ALLENS) O2 EQUIP (test code VENT O2-DEVICE = O2 EQUIP) FIO2 (test code = 30 % FIO2) A/C (test code = 16 A/C) PT. RR (test code = 27 PT. RR) PEEP (test code = 5 PEEP) VT (test code = VT) 380 PIP (test code = 21 PIP) VMIN (test code = 10.6 VMIN) PH (test code = 7.46 7.35-7.45 H BGPH) PCO2 (test code = 38 MMHG 34.0-45.0 PCO2) PO2 (test code = 122 MMHG 79-87 H PO2) HCO3 (test code = 27.0 mmol/L 22.0-26.0 H HCO3) BE (test code = BE) 3.0 mmol/L -2.0-2.0 H THB (test code = 10.8 G/DL 12-16 L THB) % 02 HB (test code 96.5 % 96.0-100.0 = ABGSAT) %COHB (test code = 1.9 % See_Comment H [Automat ed message] BGCO) The system [employer] generated this result transmitted ref erence range: -1.5. Th e reference range was not used to interpr et this result as normal/abnormal . % MET HB (test code 0.8 % 0.4-1.5 = %MET HB) CAO2 (test code = 14.9 VOL% 15.7-21.6 L CAO2) PF/RATIO (test code 407.0 = PF/RATIO) ANTICOAG?: LAST DOSE?:WHOLE BLOOD [id number] 01:00:00 Test Item Value Reference Range Interpretation Comments WHOLE BLOOD GLUCOSE 119 MG/DL 70-99 Fastin g glucose (test code = POC GLU) normal <100 MG/DL- [employer] recommend ation WHOLE BLOOD [id number] 00:40:00 Test Item Value Reference Range Interpretation Comments WHOLE BLOOD GLUCOSE 114 MG/DL 70-99 H Fastin g glucose (test code = POC GLU) normal <100 MG/DL- [employer] recommend ation WHOLE BLOOD [id number] 00:40:00 Test Item Value Reference Range Interpretation Comments WHOLE BLOOD GLUCOSE 144 MG/DL 70-99 H Fastin g glucose (test code = POC GLU) normal <100 MG/DL- [employer] recommend ation WHOLE BLOOD [id number] 21:50:00 Test Item Value Reference Range Interpretation Comments WHOLE BLOOD GLUCOSE 135 MG/DL 70-99 H Fastin g glucose (test code = POC GLU) normal <100 MG/DL- [employer] recommend ation WHOLE BLOOD [id number] 21:10:00 Test Item Value Reference Range Interpretation Comments WHOLE BLOOD GLUCOSE 125 MG/DL 70-99 H Fastin g glucose (test code = POC GLU) normal <100 MG/DL- [employer] recommend ation [id number] 12:15:00 [facility] [place] [facility] : 1950 Sex: FHEART RATE: 134 bpmRR Interval: 448 msAtrial Rate: 123 msP-R Interval: msP Duration: 0 msP Horizontal Olivet: degP Front Olivet: degQ Onset: 506 msQRSD Interval: 83 msQT Interval:294 msQTcB: 439 msQTcF: 384 msQRS Horizontal Olivet: -65 degQRS Olivet: -14 degI-40 Horizontal [place]: 7 degI-40 Front Olivet: 60 degT-40 Horizontal [place]: -90 degT-40 Front Olivet: -31 degT Horizontal [place]: 70 degT Wave Olivet: 148 degS-T Horizontal [place]et: 177 degS-T Front [place]et: 201 degECG Severity: - ABNORMAL ECG-ECG Impression: Atrial fibrillationECG Impression: Low voltage, precordial leadsECG Impression: Repol abnrm suggests ischemia, lateral leadsWHOLE BLOOD GLUCOSE 2020-07-27 12:00:00 Test Item Value Reference Range Interpretation Comments WHOLE BLOOD GLUCOSE 132 MG/DL 70-99 H Fastin g glucose (test code = POC GLU) normal <100 MG/DL- [employer] recommend ation COVID SYMPTOMATIC ER [id number] 10:41:00 Test Item Value Reference Range Interpretation Comments CORONAVIRUS (COVID-19)BY PCR (test NEGATIVE code = [id number]) CHEST 1 VIEW [id number] 06:58:00 [facility] : 1950 [facility] [place] [id number] IMAGING REPORTPatient Name: ANGY COLLAZODate of Service: [id number]: 70 Sex: F Order #: [id number] Room: [facility] 2SDOB: 1950 X-Ray Number: [id number] Record Number: [id number] Hospital Number: [id number] Physician: Jaswinder SHABAZZ Physician: Armando RUGGIERO one view 07/27/2020History: Covid 19 infection, pneumonia, intubationComparison: The prior dayTECHNIQUE: Semierect AP portable chest x-rayFINDINGS:Right subclavian vein catheter is unchanged.Cardiac, hilar, and mediastinal structures are stable. Hazy opacitiespersist in the lungs, apparently due to pneumonia. No new bony or softtissue abnormalities are identified.Impression:No change.Electronically Signed By: Yeison Srivastava M.D., 07/27/2020 6:56 AMLegally authenticated by LINO PETE 2020-07-27 06:56:[id number] 03:48:00 Test Item Value Reference Range Interpretation Comments WBC (test code = 9.7 K/UL 3.5-10.9 WBC) RBC (test code = 3.58 M/UL 4.0-5.0 L RBC) HGB (test code = 11.1 G/DL 11.5-15.5 L HGB) HCT (test code = 34.4 % 34-46 HCT) MCV (test code = 96.1 FL 80-98 MCV) MCH (test code = 31.0 PG 28-32 MCH) MCHC (test code = 32.3 G/DL 32.5-36.5 L MCHC) RDW (test code = 16.5 % 11.5-14.5 H RDW) PLT (test code = 115 K/UL 150-450 L PLT) MPV (test code = 11.9 FL 7.4-10.4 H MPV) MANDIFF (test code = NO MANDIFF) SCAN (test code = NO SCAN) NEUT% (test code = 73.9 % 40-75 NEUT%) LYMPH% (test code = 13.4 % 24-44 L LYMPH%) MONO% (test code = 5.9 % 0-13 MONO%) EOS% (test code = 6.2 % 0-4 H EOS%) BASO % (test code = 0.2 % 0-2 BASO%) IG (test code = IG) 0 % 0-1 IG% (test code = 0.4 % 0-1 IG% = Metam yelocytes, IG%) Myelocytes, and Promyelocytes. (Immature neutr ophils not including " bands".) > 3% IG indic ates risk of sepsis NRBC% (test code = 0 /100 WBC NRBC%) ABS NEUT (test code 7.2 K/UL 1.2-7.2 = NEUT) [id number] 03:46:00 Test Item Value Reference Range Interpretation Comments SODIUM (test code 140 MMOL/L 137-145 = NA) K+ (test code = 3.6 MMOL/L 3.5-5.1 KSERUM) CHLORIDE (test 106 MMOL/L 98-107 code = CL) CO2 (test code = 28 MMOL/L 22-30 CO2) BUN (test code = 32 MG/DL 7-17 H BUN) CREA (test code = 0.9 MG/DL 0.7-1.2 CREA) GLUCOSE (test code 125 MG/DL 70-99 H Fasting glucose = GLUCOSE) normal <100 MG/ DL- [employer] [place] [employer] recommendation* * CALCIUM (test code 7.9 MG/DL 8.4-10.2 L = CABLOOD) TOTPROT (test code 5.8 G/DL 6.3-8.2 L = TOTPROT) ALBUMIN (test code 2.9 G/DL 3.5-5.0 L = ALBSERUM) BILITOT (test code 1.4 MG/DL 0.2-1.3 H = BILITOT) AST (test code = 26 U/L 15-46 AST) PHOSALK (test code 61 U/L 38-126 = PHOSALK) ALTV (test code = 24 U/L 13-69 ALTV) GFR (test code = 66 A GFR of >9 0 GFR) mL/min/1.73m2 mL/min/1.73m2 is considered norm al. The GFR calcula tion on patients ove r 70 years of age is not validated by e production material handler an d may not represent t he patients true r enal function. BLOOD GAS [id number] 03:07:00 Test Item Value Reference Range Interpretation Comments SITE (test code = LRAD See_Comment [Automate d message] SITE) The system [employer] generated this result transmitted ref erence range: -SITE. T he reference range was not used to interpr et this result as normal/abnormal . ALLENS (test code = POS ALLENS) O2 EQUIP (test code VENT O2-DEVICE = O2 EQUIP) FIO2 (test code = 30 % FIO2) A/C (test code = 16 A/C) PT. RR (test code = 32 TOTAL PT. RR) PEEP (test code = 5 PEEP) VT (test code = VT) 380 PIP (test code = 23 PIP) VMIN (test code = 12.3 VMIN) PH (test code = 7.46 7.35-7.45 H BGPH) PCO2 (test code = 36 MMHG 34.0-45.0 PCO2) PO2 (test code = 116 MMHG 79-87 H PO2) HCO3 (test code = 25.6 mmol/L 22.0-26.0 HCO3) BE (test code = BE) 1.8 mmol/L -2.0-2.0 THB (test code = 10.5 G/DL 12-16 L THB) % 02 HB (test code 97.4 % 96.0-100.0 = ABGSAT) %COHB (test code = 2.6 % See_Comment H [Automat ed message] BGCO) The system [employer] generated this result transmitted ref erence range: -1.5. Th e reference range was not used to interpr et this result as normal/abnormal . % MET HB (test code 0.0 % 0.4-1.5 L = %MET HB) CAO2 (test code = 14.6 VOL% 15.7-21.6 L CAO2) PF/RATIO (test code 387.0 = PF/RATIO) ANTICOAG?: LAST DOSE?:WHOLE BLOOD [id number] 01:00:00 Test Item Value Reference Range Interpretation Comments WHOLE BLOOD GLUCOSE 122 MG/DL 70-99 H Fastin g glucose (test code = POC GLU) normal <100 MG/DL- [employer] [place] [employer] recommend ation WHOLE BLOOD [id number] 21:10:00 Test Item Value Reference Range Interpretation Comments WHOLE BLOOD GLUCOSE 144 MG/DL 70-99 Fastin g glucose (test code = POC GLU) normal <100 MG/DL- [employer] [place] [employer] recommend ation WHOLE BLOOD [id number] 17:30:00 Test Item Value Reference Range Interpretation Comments WHOLE BLOOD GLUCOSE 132 MG/DL 70-99 Fastin g glucose (test code = POC GLU) normal <100 MG/DL- [employer] [place] [employer] recommend ation WHOLE BLOOD [id number] 12:15:00 Test Item Value Reference Range Interpretation Comments WHOLE BLOOD GLUCOSE 137 MG/DL 70-99 H Fastin g glucose (test code = POC GLU) normal <100 MG/DL- [employer] [place] [employer] recommend ation WHOLE BLOOD [id number] 08:55:00 Test Item Value Reference Range Interpretation Comments WHOLE BLOOD GLUCOSE 110 MG/DL 70-99 Fastin g glucose (test code = POC GLU) normal <100 MG/DL- [employer] [place] [employer] recommend ation CHEST 1 VIEW [id number] 07:26:00 [facility] 1950 Sex: F[address] [id number] IMAGING REPORTPatient Name: Ester COLLAZOte of Service: [id number]: 70 Sex: F Order #: [id number] Room: [facility] 2SDOB: 1950 X-Ray Number: [id number] Record Number: [id number] Hospital Number: [id number] Physician: Jaswinder SHABAZZ Physician: Marianela RUGGIEROest:07/26/2020 3:29 AMHistory: Pneumonia, short of breath.Technique: Single AP chest projection.[facility] parison:July 25, 2020.Findings:Heart size is normal. There are diffuse bilateral interstitial pulmonaryparenchymal infiltrates. There is been no specific interval change. Thepositioning of the endotracheal tube and right- sided PICC line catheter areunchanged.Impression:No interval change or improve ment. Diffuse persistent bilateralinterstitial lung infiltrates.Electronically Signed By: Bhaskar Fletcher M.D., 07/26/2020 7:24 AMLegally authenticated by AYO Cheek 2020-07-26 07:24:13WHOLE BLOOD [id number] 06:55:00 Test Item Value Reference Range Interpretation Comments WHOLE BLOOD GLUCOSE 149 MG/DL 70-99 Fastin g glucose (test code = POC GLU) normal <100 MG/DL- [employer] [place] [employer] recommend ation WHOLE BLOOD [id number] 05:40:00 Test Item Value Reference Range Interpretation Comments WHOLE BLOOD GLUCOSE 121 MG/DL 70-99 Fastin g glucose (test code = POC GLU) normal <100 MG/DL- [place] [employer] recommend ation [id number] 04:15:00 Test Item Value Reference Range Interpretation Comments SODIUM (test code 142 MMOL/L 137-145 = NA) K+ (test code = 3.7 MMOL/L 3.5-5.1 KSERUM) CHLORIDE (test 109 MMOL/L 98-107 H code = CL) CO2 (test code = 27 MMOL/L 22-30 CO2) BUN (test code = 26 MG/DL 7-17 H BUN) CREA (test code = 0.9 MG/DL 0.7-1.2 CREA) GLUCOSE (test code 116 MG/DL 70-99 H Fasting glucose = GLUCOSE) normal <100 MG/ DL- [employer] [place] [employer] recommendation* * CALCIUM (test code 7.7 MG/DL 8.4-10.2 L = CABLOOD) TOTPROT (test code 5.4 G/DL 6.3-8.2 L = TOTPROT) ALBUMIN (test code 2.8 G/DL 3.5-5.0 L = ALBSERUM) BILITOT (test code 1.9 MG/DL 0.2-1.3 H = BILITOT) AST (test code = 31 U/L 15-46 AST) PHOSALK (test code 55 U/L 38-126 = PHOSALK) ALTV (test code = 30 U/L 13-69 ALTV) GFR (test code = 66 A GFR of >9 0 GFR) mL/min/1.73m2 mL/min/1.73m2 is considered norm al. The GFR calcula tion on patients ove r 70 years of age is not validated by e production material handler an d may not represent t he patients true r enal function. [id number] 03:54:00 Test Item Value Reference Range Interpretation Comments WBC (test code = 8.8 K/UL 3.5-10.9 WBC) RBC (test code = 3.35 M/UL 4.0-5.0 L RBC) HGB (test code = 10.2 G/DL 11.5-15.5 L HGB) HCT (test code = 32.2 % 34-46 L HCT) MCV (test code = 96.1 FL 80-98 MCV) MCH (test code = 30.4 PG 28-32 MCH) MCHC (test code = 31.7 G/DL 32.5-36.5 L MCHC) RDW (test code = 16.5 % 11.5-14.5 H RDW) PLT (test code = 82 K/UL 150-450 L PLT) MPV (test code = 12.6 FL 7.4-10.4 H MPV) MANDIFF (test code = NO MANDIFF) SCAN (test code = NO SCAN) NEUT% (test code = 77.2 % 40-75 H NEUT%) LYMPH% (test code = 13.1 % 24-44 L LYMPH%) MONO% (test code = 5.2 % 0-13 MONO%) EOS% (test code = 3.9 % 0-4 EOS%) BASO % (test code = 0.1 % 0-2 BASO%) IG (test code = IG) 0 % 0-1 IG% (test code = 0.5 % 0-1 IG% = Metam yelocytes, IG%) Myelocytes, and Promyelocytes. (Immature neutr ophils not including " bands".) > 3% IG indic ates risk of sepsis NRBC% (test code = 0 /100 WBC NRBC%) ABS NEUT (test code 6.8 K/UL 1.2-7.2 = NEUT) BLOOD GAS [id number] 02:30:00 Test Item Value Reference Range Interpretation Comments SITE (test code = LRAD See_Comment [Automate d message] SITE) The system [employer] generated this result transmitted ref erence range: -SITE. T he reference range was not used to interpr et this result as normal/abnormal . ALLENS (test code = POS ALLENS) O2 EQUIP (test code VENT O2-DEVICE = O2 EQUIP) FIO2 (test code = 30 % FIO2) A/C (test code = 18 A/C) PT. RR (test code = 36 PT. RR) PEEP (test code = 5 PEEP) VT (test code = VT) 380 PIP (test code = 22 PIP) VMIN (test code = 13.5 VMIN) PH (test code = 7.51 7.35-7.45 H BGPH) PCO2 (test code = 32 MMHG 34.0-45.0 L PCO2) PO2 (test code = 81 MMHG 79-87 PO2) HCO3 (test code = 25.5 mmol/L 22.0-26.0 HCO3) BE (test code = BE) 2.7 mmol/L -2.0-2.0 H THB (test code = 10.6 G/DL 12-16 L THB) % 02 HB (test code 94.7 % 96.0-100.0 L = ABGSAT) %COHB (test code = 2.4 % See_Comment H [Automat ed message] BGCO) The system [employer] generated this result transmitted ref erence range: -1.5. Th e reference range was not used to interpr et this result as normal/abnormal . % MET HB (test code 0.9 % 0.4-1.5 = %MET HB) CAO2 (test code = 14.2 VOL% 15.7-21.6 L CAO2) PF/RATIO (test code 270.0 = PF/RATIO) ANTICOAG?: LAST DOSE?:WHOLE BLOOD [id number] 02:15:00 Test Item Value Reference Range Interpretation Comments WHOLE BLOOD GLUCOSE 124 MG/DL 70-99 H Fastin g glucose (test code = POC GLU) normal <100 MG/DL- [employer] [place] recommend ation WHOLE BLOOD [id number] 00:20:00 Test Item Value Reference Range Interpretation Comments WHOLE BLOOD GLUCOSE 121 MG/DL 70-99 Fastin g glucose (test code = POC GLU) normal <100 MG/DL- [employer] [place] recommend ation WHOLE BLOOD [id number] 00:05:00 Test Item Value Reference Range Interpretation Comments WHOLE BLOOD GLUCOSE 115 MG/DL 70-99 Fastin g glucose (test code = POC GLU) normal <100 MG/DL- [place] recommend ation HEPARIN ASSOC.AB [id number] 17:08:00 Test Item Value Reference Range Interpretation Comments HEP AB (test code = PLT HAT) 0.105 OD 0.000-0.400 [id number] 16:45:00 Test Item Value Reference Range Interpretation Comments K+ (test code = KSERUM) 4.0 MMOL/L 3.5-5.1 [id number] 16:45:00 Test Item Value Reference Range Interpretation Comments MG (test code = MG) 2.2 mg/dL 1.6-2.3 WHOLE BLOOD [id number] 16:30:00 Test Item Value Reference Range Interpretation Comments WHOLE BLOOD GLUCOSE 109 MG/DL 70-99 Fastin g glucose (test code = POC GLU) normal <100 MG/DL- [employer] [place] [employer] recommend ation CHEST 1 VIEW [id number] 08:16:00 [facility] : 1950 Sex: F[address] [id number] IMAGING REPORTPatient Name: Ester COLLAZOte of Service: [id number]: 70 Sex: F Order #: [id number] Room: [facility] 2SDOB: 1950 X-Ray Number: [id number] Record Number: [id number] Hospital Number: [id number] Physician: Jaswinder SHABAZZ Physician: Marianela RUGGIEROest:07/25/2020 4:06 AMHistory: Pneumonia, short of breath.Technique: Single AP chest projection.Com parison:July 24, 2020.Findings:Heart size is normal. There are diffuse bilateral interstitial pulmonaryparenchymal infiltrates. There is been no specific interval change. Thepositioning of the endotracheal tube and right- sided PICC line catheter areunchanged.Impression:No interval change or improve ment. Diffuse persistent bilateralinterstitial lung infiltrates.Electronically Signed By: Bhaskar Fletcher M.D., 07/25/2020 8:13 AMLegally authenticated by AYO Cheek 2020-07-25 08:13:[id number] 05:01:00 Test Item Value Reference Range Interpretation Comments SODIUM (test code 148 MMOL/L 137-145 H = NA) K+ (test code = 3.5 MMOL/L 3.5-5.1 KSERUM) CHLORIDE (test 116 MMOL/L 98-107 H code = CL) CO2 (test code = 25 MMOL/L 22-30 CO2) BUN (test code = 27 MG/DL 7-17 H BUN) CREA (test code = 1.0 MG/DL 0.7-1.2 CREA) GLUCOSE (test code 94 MG/DL 70-99 Fasting glucose = GLUCOSE) normal <100 MG/ DL- [employer] [place] [employer] recommendation* * CALCIUM (test code 7.6 MG/DL 8.4-10.2 L = CABLOOD) TOTPROT (test code 5.1 G/DL 6.3-8.2 L = TOTPROT) ALBUMIN (test code 2.8 G/DL 3.5-5.0 L = ALBSERUM) BILITOT (test code 2.1 MG/DL 0.2-1.3 H = BILITOT) AST (test code = 43 U/L 15-46 AST) PHOSALK (test code 65 U/L 38-126 = PHOSALK) ALTV (test code = 36 U/L 13-69 ALTV) GFR (test code = 59 A GFR of >9 0 GFR) mL/min/1.73m2 mL/min/1.73m2 is considered norm al. The GFR calcula tion on patients ove r 70 years of age is not validated by e production material handler an d may not represent t he patients true r enal function. [id number] 05:01:00 Test Item Value Reference Range Interpretation Comments MG (test code = MG) 2.5 mg/dL 1.6-2.3 H [id number] 05:01:00 Test Item Value Reference Range Interpretation Comments PHOSPHOR (test code = PHOSPHOR) 3.0 MG/DL 2.5-4.5 [id number] 03:10:00 Test Item Value Reference Range Interpretation Comments WBC (test code = 7.7 K/UL 3.5-10.9 WBC) RBC (test code = 3.12 M/UL 4.0-5.0 L RBC) HGB (test code = 9.4 G/DL 11.5-15.5 L HGB) HCT (test code = 30.6 % 34-46 L HCT) MCV (test code = 98.1 FL 80-98 H MCV) MCH (test code = 30.1 PG 28-32 MCH) MCHC (test code = 30.7 G/DL 32.5-36.5 L MCHC) RDW (test code = 17.7 % 11.5-14.5 H RDW) PLT (test code = 61 K/UL 150-450 L PLT) MPV (test code = 12.8 FL 7.4-10.4 H MPV) MANDIFF (test code = NO MANDIFF) SCAN (test code = NO SCAN) NEUT% (test code = 74.2 % 40-75 NEUT%) LYMPH% (test code = 15.4 % 24-44 L LYMPH%) MONO% (test code = 4.9 % 0-13 MONO%) EOS% (test code = 4.9 % 0-4 H EOS%) BASO % (test code = 0.1 % 0-2 BASO%) IG (test code = IG) 0 % 0-1 IG% (test code = 0.5 % 0-1 IG% = Metam yelocytes, IG%) Myelocytes, and Promyelocytes. (Immature neutr ophils not including " bands".) > 3% IG indic ates risk of sepsis NRBC% (test code = 0 /100 WBC NRBC%) ABS NEUT (test code 5.7 K/UL 1.2-7.2 = NEUT) BLOOD GAS [id number] 02:54:00 Test Item Value Reference Range Interpretation Comments SITE (test code = LRAD See_Comment [Automate d message] SITE) The system [employer] generated this result transmitted ref erence range: -SITE. T he reference range was not used to interpr et this result as normal/abnormal . ALLENS (test code = POS ALLENS) O2 EQUIP (test code VENT O2-DEVICE = O2 EQUIP) FIO2 (test code = 30 % FIO2) A/C (test code = 20 A/C) PT. RR (test code = 33 PT. RR) PEEP (test code = 5 PEEP) VT (test code = VT) 380 PIP (test code = 21 PIP) VMIN (test code = 13.4 VMIN) PH (test code = 7.51 7.35-7.45 H BGPH) PCO2 (test code = 33 MMHG 34.0-45.0 L PCO2) PO2 (test code = 70 MMHG 79-87 L PO2) HCO3 (test code = 26.3 mmol/L 22.0-26.0 H HCO3) BE (test code = BE) 3.3 mmol/L -2.0-2.0 H THB (test code = 9.7 G/DL 12-16 L THB) % 02 HB (test code 93.8 % 96.0-100.0 L = ABGSAT) %COHB (test code = 2.9 % See_Comment H [Automat ed message] BGCO) The system [employer] generated this result transmitted ref erence range: -1.5. Th e reference range was not used to interpr et this result as normal/abnormal . % MET HB (test code 0.7 % 0.4-1.5 = %MET HB) CAO2 (test code = 12.9 VOL% 15.7-21.6 L CAO2) PF/RATIO (test code 233 = PF/RATIO) ANTICOAG?: LAST DOSE?:WHOLE BLOOD [id number] 00:30:00 Test Item Value Reference Range Interpretation Comments WHOLE BLOOD GLUCOSE 87 MG/DL 70-99 Fastin g glucose (test code = POC GLU) normal <100 MG/DL- [employer] [place] [employer] recommendation* * WHOLE BLOOD [id number] 23:05:00 Test Item Value Reference Range Interpretation Comments WHOLE BLOOD GLUCOSE 76 MG/DL 70-99 Fastin g glucose (test code = POC GLU) normal <100 MG/DL- [employer] [place] [employer] recommendation* * WHOLE BLOOD [id number] 21:20:00 Test Item Value Reference Range Interpretation Comments WHOLE BLOOD GLUCOSE 87 MG/DL 70-99 Fastin g glucose (test code = POC GLU) normal <100 MG/DL- [employer] [place] [employer] recommendation* * WHOLE BLOOD [id number] 13:10:00 Test Item Value Reference Range Interpretation Comments WHOLE BLOOD GLUCOSE 84 MG/DL 70-99 Fastin g glucose (test code = POC GLU) normal <100 MG/DL- [employer] [place] [employer] recommendation* * WHOLE BLOOD [id number] 08:55:00 Test Item Value Reference Range Interpretation Comments WHOLE BLOOD GLUCOSE 70 MG/DL 70-99 Fastin g glucose (test code = POC GLU) normal <100 MG/DL- [employer] [place] [employer] recommendation* * CHEST 1 VIEW [id number] 07:01:00 [facility] : 1950 Sex: F[address] [id number] IMAGING REPORTPatient Name: ANGY COLLAZODate of Service: [id number]: 70 Sex: F Order #: [id number] Room: [facility] 2SDOB: 1950 X-Ray Number: [id number] Record Number: [id number] Hospital Number: [id number] Physician: Jaswinder SHABAZZ Physician: Maya BOONE one view 07/24/2020History: Covid 19 infection, pneumonia, intubationComparison: The prior dayTECHNIQUE: Semierect AP portable chest x-rayFINDINGS:Endotracheal tube and esophageal temperature probe have been removed.Other support devices are unchanged.Cardiac, hilar, and mediastinal structures are stable. Hazy opacities inthe lungs are slightly worse and may be due to increasing edema orpneumonia. No new bony or soft tissue abnormalities are identified.Impression:Mild adverse interval change.Electronically Signed By: Yeison Srivastava M.D., 07/24/2020 6:58 AMLegally authenticated by LINO PETE 2020-07-24 06:58:[id number] 06:42:00 Test Item Value Reference Range Interpretation Comments SODIUM (test code 152 MMOL/L 137-145 H = NA) K+ (test code = 3.7 MMOL/L 3.5-5.1 KSERUM) CHLORIDE (test 125 MMOL/L 98-107 H code = CL) CO2 (test code = 18 MMOL/L 22-30 L CO2) BUN (test code = 36 MG/DL 7-17 H BUN) CREA (test code = 0.9 MG/DL 0.7-1.2 CREA) GLUCOSE (test code 73 MG/DL 70-99 Fasting glucose = GLUCOSE) normal <100 MG/ DL- [employer] [place] [employer] recommendation* * CALCIUM (test code 7.5 MG/DL 8.4-10.2 L = CABLOOD) TOTPROT (test code 4.9 G/DL 6.3-8.2 L = TOTPROT) ALBUMIN (test code 2.7 G/DL 3.5-5.0 L = ALBSERUM) BILITOT (test code 1.6 MG/DL 0.2-1.3 H = BILITOT) AST (test code = 53 U/L 15-46 H AST) PHOSALK (test code 59 U/L 38-126 = PHOSALK) ALTV (test code = 34 U/L 13-69 ALTV) GFR (test code = 66 A GFR of >9 0 GFR) mL/min/1.73m2 mL/min/1.73m2 is considered norm al. The GFR calcula tion on patients ove r 70 years of age is not validated by e production material handler an d may not represent t he patients true r enal function. [id number] 06:42:00 Test Item Value Reference Range Interpretation Comments MG (test code = MG) 2.8 mg/dL 1.6-2.3 H WHOLE BLOOD [id number] 06:35:00 Test Item Value Reference Range Interpretation Comments WHOLE BLOOD GLUCOSE 72 MG/DL 70-99 Fastin g glucose (test code = POC GLU) normal <100 MG/DL- [employer] [place] [employer] recommendation* * WHOLE BLOOD [id number] 06:20:00 Test Item Value Reference Range Interpretation Comments WHOLE BLOOD GLUCOSE 75 MG/DL 70-99 Fastin g glucose (test code = POC GLU) normal <100 MG/DL- [employer] [place] [employer] recommendation* * [id number] 04:36:00 Test Item Value Reference Range Interpretation Comments WBC (test code = 7.6 K/UL 3.5-10.9 WBC) RBC (test code = 2.95 M/UL 4.0-5.0 L RBC) HGB (test code = 8.9 G/DL 11.5-15.5 L HGB) HCT (test code = 28.7 % 34-46 L HCT) MCV (test code = 97.3 FL 80-98 MCV) MCH (test code = 30.2 PG 28-32 MCH) MCHC (test code = 31.0 G/DL 32.5-36.5 L MCHC) RDW (test code = 17.5 % 11.5-14.5 H RDW) PLT (test code = 53 K/UL 150-450 L PLT) MPV (test code = 12.7 FL 7.4-10.4 H MPV) MANDIFF (test code = NO MANDIFF) SCAN (test code = NO SCAN) NEUT% (test code = 75.8 % 40-75 H NEUT%) LYMPH% (test code = 15.5 % 24-44 L LYMPH%) MONO% (test code = 4.6 % 0-13 MONO%) EOS% (test code = 3.3 % 0-4 EOS%) BASO % (test code = 0.1 % 0-2 BASO%) IG (test code = IG) 0 % 0-1 IG% (test code = 0.7 % 0-1 IG% = Metam yelocytes, IG%) Myelocytes, and Promyelocytes. (Immature neutr ophils not including " bands".) > 3% IG indic ates risk of sepsis NRBC% (test code = 0 /100 WBC NRBC%) ABS NEUT (test code 5.7 K/UL 1.2-7.2 = NEUT) CROSSMATCH 10U [id number] 04:00:00 Test Item Value Reference Range Interpretation Comments PI (test code = PI) PTP SI (test code = SI) Transfused 1 UNIT [id number] 04:00:00 Test Item Value Reference Range Interpretation Comments PI (test code = PI) NUTRITION SERVICES WORKER SI (test code = SI) Transfused BLOOD GAS [id number] 02:58:00 Test Item Value Reference Range Interpretation Comments SITE (test code = LRAD See_Comment [Automate d message] SITE) The system [employer] generated this result transmitted ref erence range: -SITE. T he reference range was not used to interpr et this result as normal/abnormal . ALLENS (test code = POS ALLENS) O2 EQUIP (test code VENT O2-DEVICE = O2 EQUIP) FIO2 (test code = 30 % FIO2) A/C (test code = 20 A/C) PT. RR (test code = 34 PT. RR) PEEP (test code = 5 PEEP) VT (test code = VT) 380 PIP (test code = 22 PIP) VMIN (test code = 13.1 VMIN) PH (test code = 7.49 7.35-7.45 H BGPH) PCO2 (test code = 31 MMHG 34.0-45.0 L PCO2) PO2 (test code = 73 MMHG 79-87 L PO2) HCO3 (test code = 23.6 mmol/L 22.0-26.0 HCO3) BE (test code = BE) 0.6 mmol/L -2.0-2.0 THB (test code = 9.5 G/DL 12-16 L THB) % 02 HB (test code 94.1 % 96.0-100.0 L = ABGSAT) %COHB (test code = 2.5 % See_Comment H [Automat ed message] BGCO) The system [employer] generated this result transmitted ref erence range: -1.5. Th e reference range was not used to interpr et this result as normal/abnormal . % MET HB (test code 0.9 % 0.4-1.5 = %MET HB) CAO2 (test code = 12.7 VOL% 15.7-21.6 L CAO2) PF/RATIO (test code 243.0 = PF/RATIO) ANTICOAG?: LAST DOSE?:WHOLE BLOOD [id number] 22:30:00 Test Item Value Reference Range Interpretation Comments WHOLE BLOOD GLUCOSE 71 MG/DL 70-99 Fastin g glucose (test code = POC GLU) normal <100 MG/DL- [employer] [place] [employer] recommendation* * 1 UNIT [id number] 20:00:00 Test Item Value Reference Range Interpretation Comments PI (test code = PI) NUTRITION SERVICES WORKER SI (test code = SI) Transfused WHOLE BLOOD [id number] 17:05:00 Test Item Value Reference Range Interpretation Comments WHOLE BLOOD GLUCOSE 74 MG/DL 70-99 Fastin g glucose (test code = POC GLU) normal <100 MG/DL- [employer] [place] [employer] recommendation* * WHOLE BLOOD [id number] 13:10:00 Test Item Value Reference Range Interpretation Comments WHOLE BLOOD GLUCOSE 74 MG/DL 70-99 Fastin g glucose (test code = POC GLU) normal <100 MG/DL- [employer] [place] [employer] recommendation* * FIBRIN DEGRAD [id number] 08:34:00 Test Item Value Reference Range Interpretation Comments FDP (test code = FDP) <5 MCG/ML 0-5 LOT # (test code = LOT #) [id number] POS CNTL (test code = POS POSITIVE POSITIVE A CNTL) NEG CNTL (test code = NEG NEGATIVE NEGATIVE CNTL) EX DATE (test code = EX ) D-DIMER, [id number] 08:08:00 Test Item Value Reference Range Interpretation Comments D-DIMER (test 1579 ng/mL (FEU) 0-500 H VALUES OF QUANTITATIVE code = DDIMER) D-DIMER LESS THAN 499 ng/mL HAVE BEEN REPORTED TO BE ASSOCIATED WITH A LOW PROBABILITY OF DEEP VEIN THROMBOSIS/PULM ONARYEMB OLISM. THIS ERNESTO T ALONE SHOULD NOT BE U SED TO RULE OUT DVT/PE . PROTHROMBIN TIME WITH [id number] 08:06:00 Test Item Value Reference Range Interpretation Comments PROTHROMBIN TIME 13.0 SECONDS 10.1-12.7 H INR Usual R patricia = 2 (test code = PT) to 3 for pr evention of deep vein thrombosis (DVT ) INR (test code = INR) 1.1 [id number] 08:05:00 Test Item Value Reference Range Interpretation Comments PTT (test code = 23.0 SECONDS 25.0-36.5 L HEPARIN THE RAPEUTIC PTT) RANGE 57-92 SEC ONDS WHOLE BLOOD [id number] 07:35:00 Test Item Value Reference Range Interpretation Comments WHOLE BLOOD GLUCOSE 74 MG/DL 70-99 Fastin g glucose (test code = POC GLU) normal <100 MG/DL- [employer] [place] [employer] recommendation* * CHEST 1 VIEW [id number] 07:17:00 [facility] : 1950 Sex: F[address] [id number] IMAGING REPORTPatient Name: ANGY COLLAZODate of Service: [id number]: 70 Sex: F Order #: [id number] Room: [facility] 2SDOB: 1950 X-Ray Number: [id number] Record Number: [id number] Hospital Number: [id number] Physician: Jaswinder SHABAZZ Physician: Maya BOONE one view 07/23/2020History: Covid 19 infection, pneumonia, intubationComparison: The prior dayTECHNIQUE: Semierect AP portable chest x-rayFINDINGS:Support devices are unchanged.Cardiac, hilar, and mediastinal structures are stable. Minimal bibasilardensities may be due to atelectasis or pneumonia. Interstitial markings areslightly prominent once again. No new bony or soft tissue abnormalities areidentified.Impression:No significant change.Electronically Signed By: Yeison Srivastava M.D., 07/23/2020 7:14 AMLegally authenticated by LINO PETE 2020-07-23 07:14:47WHOLE BLOOD [id number] 06:50:00 Test Item Value Reference Range Interpretation Comments WHOLE BLOOD GLUCOSE 73 MG/DL 70-99 Fastin g glucose (test code = POC GLU) normal <100 MG/DL- [employer] [place] recommendation* * [id number] 04:35:00 Test Item Value Reference Range Interpretation Comments SODIUM (test code 155 MMOL/L 137-145 H = NA) K+ (test code = 3.8 MMOL/L 3.5-5.1 KSERUM) CHLORIDE (test 125 MMOL/L 98-107 H code = CL) CO2 (test code = 26 MMOL/L 22-30 CO2) BUN (test code = 62 MG/DL 7-17 H BUN) CREA (test code = 1.4 MG/DL 0.7-1.2 H CREA) GLUCOSE (test code 91 MG/DL 70-99 Fasting glucose = GLUCOSE) normal <100 MG/ DL- [place] [employer] recommendation* * CALCIUM (test code 7.9 MG/DL 8.4-10.2 L = CABLOOD) TOTPROT (test code 5.0 G/DL 6.3-8.2 L = TOTPROT) ALBUMIN (test code 2.8 G/DL 3.5-5.0 L = ALBSERUM) BILITOT (test code 1.0 MG/DL 0.2-1.3 = BILITOT) AST (test code = 43 U/L 15-46 AST) PHOSALK (test code 53 U/L 38-126 = PHOSALK) ALTV (test code = 29 U/L 13-69 ALTV) GFR (test code = 40 A GFR of >9 0 GFR) mL/min/1.73m2 mL/min/1.73m2 is considered norm al. The GFR calcula tion on patients ove r 70 years of age is not validated by th e production material handler an d may not represent t he patients true r enal function. [id number] 04:35:00 Test Item Value Reference Range Interpretation Comments MG (test code = MG) 3.3 mg/dL 1.6-2.3 H [id number] 04:05:00 Test Item Value Reference Range Interpretation Comments WBC (test code = 7.3 K/UL 3.5-10.9 WBC) RBC (test code = 2.20 M/UL 4.0-5.0 L RBC) HGB (test code = 6.6 G/DL 11.5-15.5 LL HGB) HCT (test code = 21.3 % 34-46 L HCT) MCV (test code = 96.8 FL 80-98 MCV) MCH (test code = 30.0 PG 28-32 MCH) MCHC (test code = 31.0 G/DL 32.5-36.5 L MCHC) RDW (test code = 18.1 % 11.5-14.5 H RDW) PLT (test code = 53 K/UL 150-450 L PLT) MPV (test code = 13.7 FL 7.4-10.4 H MPV) MANDIFF (test code = NO MANDIFF) SCAN (test code = NO SCAN) NEUT% (test code = 72.1 % 40-75 NEUT%) LYMPH% (test code = 17.3 % 24-44 L LYMPH%) MONO% (test code = 7.7 % 0-13 MONO%) EOS% (test code = 1.5 % 0-4 EOS%) BASO % (test code = 0.0 % 0-2 BASO%) IG (test code = IG) 0 % 0-1 IG% (test code = 1.4 % 0-1 H IG% = Metam yelocytes, IG%) Myelocytes, and Promyelocytes. (Immature neutr ophils not including " bands".) > 3% IG indic ates risk of sepsis NRBC% (test code = 1 /100 WBC REPORTED WBC COUNT HAS NRBC%) BEEN CORRECTED FOR NRBC ABS NEUT (test code 5.3 K/UL 1.2-7.2 = NEUT) RESULTS VERIFIED.C'd TO j,thien boothe @ 0405/07-23-20/maBLOOD GAS ANALYSIS 2020-07-23 02:53:00 Test Item Value Reference Range Interpretation Comments SITE (test code = ARTHUR See_Comment [Automate d message] SITE) The system [employer] generated this result transmitted ref erence range: -SITE. T he reference range was not used to interpr et this result as normal/abnormal . ALLENS (test code = N/A ALLENS) O2 EQUIP (test code VENT O2-DEVICE = O2 EQUIP) FIO2 (test code = 30 % FIO2) A/C (test code = 20 A/C) PT. RR (test code = 32 PT. RR) PEEP (test code = 5 PEEP) VT (test code = VT) 380 PIP (test code = 29 PIP) VMIN (test code = 12.5 VMIN) PH (test code = 7.44 7.35-7.45 BGPH) PCO2 (test code = 36 MMHG 34.0-45.0 PCO2) PO2 (test code = 137 MMHG 79-87 H PO2) HCO3 (test code = 24.5 mmol/L 22.0-26.0 HCO3) BE (test code = BE) 0.4 mmol/L -2.0-2.0 THB (test code = 6.8 G/DL 12-16 LL THB) % 02 HB (test code 96.1 % 96.0-100.0 = ABGSAT) %COHB (test code = 1.8 % See_Comment H [Automat ed message] BGCO) The system [employer] generated this result transmitted ref erence range: -1.5. Th e reference range was not used to interpr et this result as normal/abnormal . % MET HB (test code 0.9 % 0.4-1.5 = %MET HB) CAO2 (test code = 9.5 VOL% 15.7-21.6 L CAO2) PF/RATIO (test code 457.0 = PF/RATIO) ANTICOAG?: LAST DOSE?: RSLTS VERIFIED.GIVEN TO CHAR CAZARES, RN/208/0245/[id number]/COREY LOPEZ,RRTWHOLE BLOOD [id number] 01:15:00 Test Item Value Reference Range Interpretation Comments WHOLE BLOOD GLUCOSE 84 MG/DL 70-99 Fastin g glucose (test code = POC GLU) normal <100 MG/DL- [employer] recommendation* * WHOLE BLOOD [id number] 21:45:00 Test Item Value Reference Range Interpretation Comments WHOLE BLOOD GLUCOSE 82 MG/DL 70-99 Fastin g glucose (test code = POC GLU) normal <100 MG/DL- [employer] recommendation* * OCCULT BLOOD, [id number] 20:23:00 Test Item Value Reference Range Interpretation Comments OCCULT BLOOD FECES (test code = POSITIVE NEGATIVE A OCCBLFEC) LOT# CRD (test code = LOT# CRD) [id number] EXP CRD (test code = EXP CRD) 07-20 LOT# DVL (test code = LOT# DVL) 34922 EXP DVL (test code = EXP DVL) 04-18 INT QC (test code = INT QC) PASSED 1 UNIT [id number] 20:00:00 Test Item Value Reference Range Interpretation Comments PI (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 = PI) NUTRITION SERVICES WORKER SI (test code = SI) Transfused WHOLE BLOOD [id number] 17:15:00 Test Item Value Reference Range Interpretation Comments WHOLE BLOOD GLUCOSE 74 MG/DL 70-99 Fastin g glucose (test code = POC GLU) normal <100 MG/DL- [employer] recommendation* * CT ABDOMEN/PELVIS [id number] 13:07:00 [facility] : 1950 Sex: F[address] [address]AACKLOGQAM IMAGING REPORTPatient Name: ERWIN COLLAZOReilly of Service: [id number]: 70 Sex: F Order #: [id number] Room: [facility] 2SDOB: 1950 X-Ray Number: [id number] Record Number: [id number] Hospital Number: [id number] Physician: Jaswinder SHABAZZ Physician: MICHAELA MEZA abdomen and pelvis.History: Abdomen pain.Technique: Entirely unenhanced CT axial images of theabdomen and pelviswith sagittal and coronal reformatted images were reviewed.This CT exam was performed using one or more of the following dosereduction techniques: Automated exposure control, adjustment of the MAand/or KV according to patient size or use of iterative reconstructiontechnique.Comparison: None.Findings:Images of the lower lungs and mediastinum demonstrate no specific defects.There is an NG tube in the stomach.The solid large organs of the upper abdomen appear focally normal.The gallbladder appears to be absent.There is no significant retroperitoneal adenopathy or fluid collectionsdepicted.There are dilated small and large bowel loops present.There are surgical changes associated with the abdomen consistent withprior probable hernia repair.There is a focal incarcerated loop of bowel within a ventral hernia in thelower abdominal midline.The urinary bladder is collapsed with a Zamarripa catheter. There is no pelvicfree fluid seen.Impression:Possible mild stasis or bowel obstruction developing from incarcerated loopof bowel in the lower abdominal midline from ventral hernia. Correlateclinically.Electronically Signed By: Bhaskar Fletcher M.D., 07/22/2020 1:05 PMLegally authenticated byAYO Cheek 2020-07-22 13:05:31WHOLE BLOOD [id number] 12:25:00 Test Item Value Reference Range Interpretation Comments WHOLE BLOOD GLUCOSE 90 MG/DL 70-99 Fastin g glucose (test code = POC GLU) normal <100 MG/DL- [employer] recommendation* * WHOLE BLOOD [id number] 08:45:00 Test Item Value Reference Range Interpretation Comments WHOLE BLOOD GLUCOSE 125 MG/DL 70-99 H Fastin g glucose (test code = POC GLU) normal <100 MG/DL- [employer] recommend ation CHEST 1 VIEW [id number] 07:23:00 [facility] : 1950 [facility], [place] [address]ZSWJWVULKB IMAGING REPORTPatient Name: ANGY COLLAZODate of Service: [id number]: 70 Sex: F Order #: [id number] Room: [facility] 2SDOB: 1950 X-Ray Number: [id number] Record Number: [id number] Hospital Number: [id number] Physician: Jaswinder SHABAZZ Physician: Maya OBONE one view 07/22/2020History: Covid 19 infection, pneumonia, intubationComparison: The prior dayTECHNIQUE: Semierect AP portable chest x-rayFINDINGS:Support devices are unchanged.Cardiac, hilar, and mediastinal structures are stable. Minimal bibasilardensities may be due to atelectasis or pneumonia. No new bony or softtissue abnormalities are identified.Impression:No significant change.Electr onically Signed By: Yeison Srivastava M.D., 07/22/2020 7:21 AMLegally authenticated by LINO PETE 2020-07-22 07:21:[id number] 06:20:00 Test Item Value Reference Range Interpretation Comments WBC (test code = 14.5 K/UL 3.5-10.9 H WBC) RBC (test code = 2.08 M/UL 4.0-5.0 L RBC) HGB (test code = 6.1 G/DL 11.5-15.5 LL HGB) HCT (test code = 19.4 % 34-46 L HCT) MCV (test code = 93.3 FL 80-98 MCV) MCH (test code = 29.3 PG 28-32 MCH) MCHC (test code = 31.4 G/DL 32.5-36.5 L MCHC) RDW (test code = 18.2 % 11.5-14.5 H RDW) PLT (test code = 92 K/UL 150-450 L PLT) MPV (test code = 14.3 FL 7.4-10.4 H MPV) MANDIFF (test code = NO MANDIFF) SCAN (test code = NO SCAN) NEUT% (test code = 74.1 % 40-75 NEUT%) LYMPH% (test code = 13.8 % 24-44 L LYMPH%) MONO% (test code = 8.7 % 0-13 MONO%) EOS% (test code = 1.2 % 0-4 EOS%) BASO % (test code = 0.1 % 0-2 BASO%) IG (test code = IG) 0 % 0-1 IG% (test code = 2.1 % 0-1 H IG% = Metam yelocytes, IG%) Myelocytes, and Promyelocytes. (Immature neutr ophils not including " bands".) > 3% IG indic ates risk of sepsis NRBC% (test code = 2 /100 WBC REPORTED WBC COUNT HAS NRBC%) BEEN CORRECTED FOR NRBC ABS NEUT (test code 10.8 K/UL 1.2-7.2 H = NEUT) CHECKED x2 RESULTS VERIFIED.C'd TO nto/icu/620/caWHOLE BLOOD [id number] 05:35:00 Test Item Value Reference Range Interpretation Comments WHOLE BLOOD GLUCOSE 93 MG/DL 70-99 Fastin g glucose (test code = POC GLU) normal <100 MG/DL- [employer] recommendation* * [id number] 04:32:00 Test Item Value Reference Range Interpretation Comments SODIUM (test code 151 MMOL/L 137-145 H = NA) K+ (test code = 3.6 MMOL/L 3.5-5.1 KSERUM) CHLORIDE (test 120 MMOL/L 98-107 H code = CL) CO2 (test code = 23 MMOL/L 22-30 CO2) BUN (test code = 89 MG/DL 7-17 H BUN) CREA (test code = 1.9 MG/DL 0.7-1.2 H CREA) GLUCOSE (test code 103 MG/DL 70-99 H Fasting glucose = GLUCOSE) normal <100 MG/ DL- [employer] recommendation* * CALCIUM (test code 7.4 MG/DL 8.4-10.2 L = CABLOOD) TOTPROT (test code 4.7 G/DL 6.3-8.2 L = TOTPROT) ALBUMIN (test code 2.5 G/DL 3.5-5.0 L = ALBSERUM) BILITOT (test code 0.9 MG/DL 0.2-1.3 = BILITOT) AST (test code = 41 U/L 15-46 AST) PHOSALK (test code 60 U/L 38-126 = PHOSALK) ALTV (test code = 27 U/L 13-69 ALTV) GFR (test code = 28 A GFR of >9 0 GFR) mL/min/1.73m2 mL/min/1.73m2 is considered norm al. The GFR calcula tion on patients ove r 70 years of age is not validated by e production material handler an d may not represent t he patients true r enal function. [id number] 04:32:00 Test Item Value Reference Range Interpretation Comments MG (test code = MG) 3.2 mg/dL 1.6-2.3 H WHOLE BLOOD [id number] 02:51:00 Test Item Value Reference Range Interpretation Comments WHOLE BLOOD GLUCOSE 109 MG/DL 70-99 Fastin g glucose (test code = POC GLU) normal <100 MG/DL- [employer] recommend ation BLOOD GAS [id number] 02:48:00 Test Item Value Reference Range Interpretation Comments SITE (test code = ARTHUR See_Comment [Automate d message] SITE) The system [employer] generated this result transmitted ref erence range: -SITE. T he reference range was not used to interpr et this result as normal/abnormal . ALLENS (test code = N/A ALLENS) O2 EQUIP (test code VENT O2-DEVICE = O2 EQUIP) FIO2 (test code = 30 % FIO2) A/C (test code = 20 A/C) PT. RR (test code = 32 PT. RR) PEEP (test code = 5 PEEP) VT (test code = VT) 380 PIP (test code = 11 PIP) VMIN (test code = 12.8 VMIN) PH (test code = 7.45 7.35-7.45 BGPH) PCO2 (test code = 34 MMHG 34.0-45.0 PCO2) PO2 (test code = 109 MMHG 79-87 H PO2) HCO3 (test code = 23.6 mmol/L 22.0-26.0 HCO3) BE (test code = BE) -0.3 mmol/L -2.0-2.0 THB (test code = 6.5 G/DL 12-16 LL THB) % 02 HB (test code 96.5 % 96.0-100.0 = ABGSAT) %COHB (test code = 2.1 % See_Comment H [Automat ed message] BGCO) The system [employer] generated this result transmitted ref erence range: -1.5. Th e reference range was not used to interpr et this result as normal/abnormal . % MET HB (test code 0.9 % 0.4-1.5 = %MET HB) CAO2 (test code = 9.1 VOL% 15.7-21.6 L CAO2) PF/RATIO (test code 363.0 = PF/RATIO) ANTICOAG?: LAST DOSE?: RSLTS VERIFIED.GIVEN TO CHAR CAZARES,RN/208/0245/[id number]/COREY LOPEZ,RRTWHOLE BLOOD [id number] 20:55:00 Test Item Value Reference Range Interpretation Comments WHOLE BLOOD GLUCOSE 127 MG/DL 70-99 Fastin g glucose (test code = POC GLU) normal <100 MG/DL- [employer] recommend ation WHOLE BLOOD [id number] 20:55:00 Test Item Value Reference Range Interpretation Comments WHOLE BLOOD GLUCOSE 130 MG/DL 70-99 H Fastin g glucose (test code = POC GLU) normal <100 MG/DL- [employer] recommend ation 1 UNIT [id number] 20:00:00 Test Item Value Reference Range Interpretation Comments PI (test code = PI) NUTRITION SERVICES WORKER SI (test code = SI) Transfused 1 UNIT [id number] 20:00:00 Test Item Value Reference Range Interpretation Comments PI (test code = PI) NUTRITION SERVICES WORKER SI (test code = SI) Transfused WHOLE BLOOD [id number] 15:35:00 Test Item Value Reference Range Interpretation Comments WHOLE BLOOD GLUCOSE 131 MG/DL 70-99 H Fastin g glucose (test code = POC GLU) normal <100 MG/DL- [employer] recommend ation [id number] 13:12:00 Test Item Value Reference Range Interpretation Comments HGB (test code = HGB) 7.0 G/DL 11.5-15.5 L HCT (test code = HCT) 22.0 % 34-46 L MCV (test code = MCV) 92.8 FL 80-98 MCHC (test code = MCHC) 31.8 G/DL 32.5-36.5 L RECEIVED BLOODWHOLE BLOOD [id number] 12:55:00 Test Item Value Reference Range Interpretation Comments WHOLE BLOOD GLUCOSE 120 MG/DL 70-99 H Fastin g glucose (test code = POC GLU) normal <100 MG/DL- [employer] recommend ation WHOLE BLOOD [id number] 09:00:00 Test Item Value Reference Range Interpretation Comments WHOLE BLOOD GLUCOSE 135 MG/DL 70-99 H Fastin g glucose (test code = POC GLU) normal <100 MG/DL- [employer] recommend ation CHEST 1 VIEW [id number] 07:35:00 [facility] : 1950 Sex: F[address] [address]SEJTMJFISP IMAGING REPORTPatient Name: Kristan COLLAZO of Service: [id number]: 70 Sex: F Order #: [id number] Room: 208/ A 2SDOB: 1950 X-Ray Number: [id number] Record Number: [id number] Hospital Number: [id number] Physician: Jaswinder SHABAZZ Physician: Maya BOONE one view 07/21/2020History: Covid 19 infection, pneumonia, intubationComparison: The prior dayTECHNIQUE: Semierect AP portable chest x-rayFINDINGS:Support devices are unchanged.Cardiac, hilar, and mediastinal structures are stable. Minimal bibasilardensities may be due to atelectasis or pneumonia. No new bony or softtissue abnormalities are identified.Impression:No adverse change.Electronic ally Signed By: Yeison Srivastava M.D., 07/21/2020 7:32 AMLegally authenticated by LINO PETE 2020-07-21 07:32:[id number] 04:44:00 Test Item Value Reference Range Interpretation Comments BLOOD TYPE (test O Rh Positive Comment for code = TYPE) Female s Rhogam may be indicated for patient dependi ng baby's Rh statu s. ANTIBODY SCREEN NEGATIVE NEGATIVE (test code = SCREEN) [id number] 04:14:00 Test Item Value Reference Range Interpretation Comments WBC (test code = 22.2 K/UL 3.5-10.9 H WBC) RBC (test code = 1.71 M/UL 4.0-5.0 L RBC) HGB (test code = 5.1 G/DL 11.5-15.5 LL HGB) HCT (test code = 17.2 % 34-46 L HCT) MCV (test code = 100.6 FL 80-98 H MCV) MCH (test code = 29.8 PG 28-32 MCH) MCHC (test code = 29.7 G/DL 32.5-36.5 L MCHC) RDW (test code = 18.0 % 11.5-14.5 H RDW) PLT (test code = 153 K/UL 150-450 PLT) MPV (test code = 14.5 FL 7.4-10.4 H MPV) MANDIFF (test code = NO MANDIFF) SCAN (test code = YES SCAN) NEUT% (test code = 69.1 % 40-75 NEUT%) LYMPH% (test code = 16.5 % 24-44 L LYMPH%) MONO% (test code = 10.3 % 0-13 MONO%) EOS% (test code = 0.3 % 0-4 EOS%) BASO % (test code = 0.2 % 0-2 BASO%) IG (test code = IG) 1 % 0-1 IG% (test code = 3.6 % 0-1 H IG% = IG%) Metamyelocytes, Myelocytes, and Promyelocytes. (Immature neutrophils not including "bands".) > 3 % IG indicates ri sk of sepsis NRBC% (test code = 4 WBC REPORTED WBC COUNT NRBC%) HAS BEEN CORREC UYEN FOR NRBC PLTMORPH (test code LARGE PLATELETS NORMAL = PLTMORPH) PLT-EST (test code = NORMAL NORMAL PLT-EST) ANISOCYTOISIS (test 2+ code = ANIS) ABS NEUT (test code 15.4 K/UL 1.2-7.2 H = NEUT) RESULTS VERIFIED.C'd TO sarah graves rn @ 0313/07-21-20/[id number] 03:38:00 Test Item Value Reference Range Interpretation Comments MG (test code = MG) 3.3 mg/dL 1.6-2.3 H [id number] 03:38:00 Test Item Value Reference Range Interpretation Comments SODIUM (test code 148 MMOL/L 137-145 H = NA) K+ (test code = 3.9 MMOL/L 3.5-5.1 KSERUM) CHLORIDE (test 112 MMOL/L 98-107 H code = CL) CO2 (test code = 26 MMOL/L 22-30 CO2) BUN (test code = 100 MG/DL 7-17 H BUN) CREA (test code = 2.3 MG/DL 0.7-1.2 H CREA) GLUCOSE (test code 132 MG/DL 70-99 H Fasting glucose = GLUCOSE) normal <100 MG/ DL- [employer] recommendation* * CALCIUM (test code 7.9 MG/DL 8.4-10.2 L = CABLOOD) TOTPROT (test code 4.8 G/DL 6.3-8.2 L = TOTPROT) ALBUMIN (test code 2.6 G/DL 3.5-5.0 L = ALBSERUM) BILITOT (test code 0.8 MG/DL 0.2-1.3 = BILITOT) AST (test code = 36 U/L 15-46 AST) PHOSALK (test code 54 U/L 38-126 = PHOSALK) ALTV (test code = 27 U/L 13-69 ALTV) GFR (test code = 22 A GFR of >9 0 GFR) mL/min/1.73m2 mL/min/1.73m2 is considered norm al. The GFR calcula tion on patients ove r 70 years of age is not validated by [facility] production material handler an d may not represent t he patients true r enal function. BLOOD GAS [id number] 03:02:00 Test Item Value Reference Range Interpretation Comments SITE (test code = ARTHUR See_Comment [Automate d message] SITE) The system [employer] generated this result transmitted ref erence range: -SITE. T he reference range was not used to interpr et this result as normal/abnormal . ALLENS (test code = N/A ALLENS) O2 EQUIP (test code VENT O2-DEVICE = O2 EQUIP) FIO2 (test code = 30 % FIO2) A/C (test code = 20 A/C) PT. RR (test code = 24 PT. RR) PEEP (test code = 5 PEEP) VT (test code = VT) 380 PIP (test code = 17 PIP) VMIN (test code = 9.91 VMIN) PH (test code = 7.42 7.35-7.45 BGPH) PCO2 (test code = 37 MMHG 34.0-45.0 PCO2) PO2 (test code = 154 MMHG 79-87 H PO2) HCO3 (test code = 24.0 mmol/L 22.0-26.0 HCO3) BE (test code = BE) -0.4 mmol/L -2.0-2.0 THB (test code = 5.8 G/DL 12-16 LL THB) % 02 HB (test code 96.0 % 96.0-100.0 = ABGSAT) %COHB (test code = 2.2 % See_Comment H [Automat ed message] BGCO) The system [employer] generated this result transmitted ref erence range: -1.5. Th e reference range was not used to interpr et this result as normal/abnormal . % MET HB (test code 1.2 % 0.4-1.5 = %MET HB) CAO2 (test code = 8.2 VOL% 15.7-21.6 L CAO2) PF/RATIO (test code 513.0 = PF/RATIO) ANTICOAG?: LAST DOSE?: RSLTS VERIFIED.GIVEN TO GASTON KENDALL,RN/208/0236/[id number]/COREY LOPEZ,SDWHOLE BLOOD [id number] 02:26:00 Test Item Value Reference Range Interpretation Comments WHOLE BLOOD GLUCOSE 136 MG/DL 70-99 H Fastin g glucose (test code = POC GLU) normal <100 MG/DL- [employer] recommend ation WHOLE BLOOD [id number] 00:40:00 Test Item Value Reference Range Interpretation Comments WHOLE BLOOD GLUCOSE 159 MG/DL 70-99 H Fastin g glucose (test code = POC GLU) normal <100 MG/DL- [employer] recommend ation WHOLE BLOOD [id number] 18:40:00 Test Item Value Reference Range Interpretation Comments WHOLE BLOOD GLUCOSE 128 MG/DL 70-99 H Fastin g glucose (test code = POC GLU) normal <100 MG/DL- [employer] recommend ation MRI BRAIN W/O [id number] 14:35:00 [facility] [place] [facility] [facility] : 1950 [facility], [place] [address]IKEUUZMKVH IMAGING REPORTPatient Name: Kristan COLLAZO of Service: [id number]: 70 Sex: F Order #: [id number] Room: [facility] 2SDOB: 1950 X-Ray Number: [id number] Record Number: [id number] Hospital Number: [id number] Physician: Jacob SHABAZZering Physician: TIMO SHABAZZBrain MRI.History: Mental status changes.Technique: Unenhanced multiplanar multisequence MRI images of the brainwere reviewed.Comparison: None.Findings:Examination limited by patient motion.There are no specific acute appearing intracranial defects depicted.The ventricles appear symmetric and midline.The tomlinson-white matter differentiation appears normal.The intracranial flow voids appear normal.There are no areas of diffusion restriction to suggest the presence ofacute or subacute ischemia.Impression:Very limited exam secondary to patient motion.No gross abnormalities.Electronically Signed By: Bhaskar Fletcher M.D., 07/20/2020 1:44 PMLegally authenticated by AYO Cheek 2020-07-20 13:44:52WHOLE BLOOD [id number] 13:31:00 Test Item Value Reference Range Interpretation Comments WHOLE BLOOD GLUCOSE 159 MG/DL 70-99 H Fastin g glucose (test code = POC GLU) normal <100 MG/DL- [employer] recommend ation WHOLE BLOOD [id number] 09:45:00 Test Item Value Reference Range Interpretation Comments WHOLE BLOOD GLUCOSE 127 MG/DL 70-99 H Fastin g glucose (test code = POC GLU) normal <100 MG/DL- [employer] recommend ation WHOLE BLOOD [id number] 08:50:00 Test Item Value Reference Range Interpretation Comments WHOLE BLOOD GLUCOSE 148 MG/DL 70-99 H Fastin g glucose (test code = POC GLU) normal <100 MG/DL- [employer] recommend ation CHEST 1 VIEW [id number] 07:10:00 [facility] : 1950 [facility] [place] [id number] IMAGING REPORTPatient Name: Ester COLLAZOte of Service: [id number]: 70 Sex: F Order #: [id number] Room: [facility] 2SDOB: 1950 X-Ray Number: [id number] Record Number: [id number] Hospital Number: [id number] Physician: Jaswinder SHABAZZ Physician: Armando RUGGIERO one view 07/20/2020History: Covid 19 infection, pneumonia, intubationComparison: The prior dayTECHNIQUE: Semierect AP portable chest x-rayFINDINGS:Support devices are unchanged.Cardiac, hilar, and mediastinal structures are stable. Minimal bibasilardensities may be due to atelectasis or pneumonia. No new bony or softtissue abnormalities are identified.Impression:No significant change.Electronically Signed By: Yeison Srivastava M.D., 07/20/2020 7:08 AMLegallelsa authenticated by LINO PETE 2020-07-20 07:08:20BLOOD [id number] 06:59:00 Test Item Value Reference Range Interpretation Comments Report Text (test MOA 2020-07-15 1217 code = Report Text) Report Text7 (test BLOOD CULTURES HELD FOR code = Report 5 DAYS BEFORE FINAL Text7) Report Text8 (test code = Report Text8) Report Text9 (test [employer] code = Report MICROBIOLOGY SUGGESTS THAT Text9) Report Text10 (test MOST CASES OF BACTEREMIA code = Report ARE DETECTED BY USING Text10) Report Text11 (test THREE SETS OF SEPARATELY code = Report COLLECTED BLOOD CULTURES. Text11) Report Text12 (test [facility] 2020-07-15 1218 code = Report Text12) Report Text13 (test CONVERSELY, A SINGLE BLOOD code = Report CULTURE MAY MISS Text13) Report Text14 (test INTERMITTENTLY OCCURRING code = Report BACTEREMIA AND MAKE Text14) Report Text15 (test IT DIFFICULT TO INTERPRET code = Report THE CLINICAL Text15) Report Text16 (test SIGNIFICANCE OF CERTAIN code = Report ISOLATED ORGANISMS. Text16) Report Text17 (test code = Report Text17) Report Text18 (test [facility] 2020-07-15 1219 code = Report Text18) Report Text19 (test COLLECTION SITE code = Report UNSPECIFIED Text19) Report Text20 (test 2020-07-16 624 code = Report Text20) Report Text21 (test NO GROWTH WITHIN 1 DAY code = Report Text21) Report Text22 (test PRELIMINARY REPORT code = Report Text22) Report Text23 (test code = Report Text23) Report Text24 (test 2020-07-17 651 code = Report Text24) Report Text25 (test NO GROWTH WITHIN 2 DAYS code = Report Text25) Report Text26 (test PRELIMINARY REPORT code = Report Text26) Report Text27 (test code = Report Text27) Report Text28 (test [facility] 2020-07-20 659 code = Report Text28) Report Text29 (test NO GROWTH WITHIN 5 DAYS code = Report Text29) Report Text30 (test FINAL REPORT code = Report Text30) BLOOD [id number] 06:59:00 Test Item Value Reference Range Interpretation Comments Report Text (test [facility] 2020-07-15 1218 code = Report Text) Report Text7 (test BLOOD CULTURES HELD FOR code = Report 5 DAYS BEFORE FINAL Text7) Report Text8 (test code = Report Text8) Report Text9 (test [employer] code = Report MICROBIOLOGY SUGGESTS THAT Text9) Report Text10 (test MOST CASES OF BACTEREMIA code = Report ARE DETECTED BY USING Text10) Report Text11 (test THREE SETS OF SEPARATELY code = Report COLLECTED BLOOD CULTURES. Text11) Report Text12 (test [facility] 2020-07-15 1219 code = Report Text12) Report Text13 (test CONVERSELY, A SINGLE BLOOD code = Report CULTURE MAY MISS Text13) Report Text14 (test INTERMITTENTLY OCCURRING code = Report BACTEREMIA AND MAKE Text14) Report Text15 (test IT DIFFICULT TO INTERPRET code = Report THE CLINICAL Text15) Report Text16 (test SIGNIFICANCE OF CERTAIN code = Report ISOLATED ORGANISMS. Text16) Report Text17 (test code = Report Text17) Report Text18 (test [facility] 2020-07-15 1220 code = Report Text18) Report Text19 (test COLLECTION SITE code = Report UNSPECIFIED Text19) Report Text20 (test 2020-07-16 624 code = Report Text20) Report Text21 (test NO GROWTH WITHIN 1 DAY code = Report Text21) Report Text22 (test PRELIMINARY REPORT code = Report Text22) Report Text23 (test code = Report Text23) Report Text24 (test 2020-07-17 651 code = Report Text24) Report Text25 (test NO GROWTH WITHIN 2 DAYS code = Report Text25) Report Text26 (test PRELIMINARY REPORT code = Report Text26) Report Text27 (test code = Report Text27) Report Text28 (test CWJ 2020-07-20 659 code = Report Text28) Report Text29 (test NO GROWTH WITHIN 5 DAYS code = Report Text29) Report Text30 (test FINAL REPORT code = Report Text30) BMP, BASIC METABOLIC [id number] 05:10:00 Test Item Value Reference Range Interpretation Comments SODIUM (test code 146 MMOL/L 137-145 H = NA) K+ (test code = 4.0 MMOL/L 3.5-5.1 KSERUM) CHLORIDE (test 109 MMOL/L 98-107 H code = CL) CO2 (test code = 28 MMOL/L 22-30 CO2) BUN (test code = 76 MG/DL 7-17 H BUN) CREA (test code = 1.5 MG/DL 0.7-1.2 H CREA) GLUCOSE (test code 141 MG/DL 70-99 H Fasting glucose = GLUCOSE) normal <100 MG/ DL- [employer] [place] [employer] recommendation* * CALCIUM (test code 8.3 MG/DL 8.4-10.2 L = CABLOOD) GFR (test code = 37 A GFR of >9 0 GFR) mL/min/1.73m2 mL/min/1.73m2 is considered norm al. The GFR calcula tion on patients ove r 70 years of age is not validated by e production material handler an d may not represent t he patients true r enal function. [id number] 05:01:00 Test Item Value Reference Range Interpretation Comments WBC (test code = 21.3 K/UL 3.5-10.9 H WBC) RBC (test code = 2.46 M/UL 4.0-5.0 L RBC) HGB (test code = 7.3 G/DL 11.5-15.5 L HGB) HCT (test code = 23.8 % 34-46 L HCT) MCV (test code = 96.7 FL 80-98 MCV) MCH (test code = 29.7 PG 28-32 MCH) MCHC (test code = 30.7 G/DL 32.5-36.5 L MCHC) RDW (test code = 16.9 % 11.5-14.5 H RDW) PLT (test code = 166 K/UL 150-450 PLT) MPV (test code = 14.3 FL 7.4-10.4 H MPV) MANDIFF (test code = NO MANDIFF) SCAN (test code = NO SCAN) NEUT% (test code = 70.0 % 40-75 NEUT%) LYMPH% (test code = 15.2 % 24-44 L LYMPH%) MONO% (test code = 11.7 % 0-13 MONO%) EOS% (test code = 0.7 % 0-4 EOS%) BASO % (test code = 0.2 % 0-2 BASO%) IG (test code = IG) 0 % 0-1 IG% (test code = 2.2 % 0-1 H IG% = Metam yelocytes, IG%) Myelocytes, and Promyelocytes. (Immature neutr ophils not including " bands".) > 3% IG indic ates risk of sepsis NRBC% (test code = 1 100 WBC REPORTED WBC COUNT HAS NRBC%) BEEN CORRECTED FOR NRBC ABS NEUT (test code 14.9 K/UL 1.2-7.2 H = NEUT) BLOOD GAS [id number] 03:58:00 Test Item Value Reference Range Interpretation Comments SITE (test code = ARTHUR See_Comment [Automate d message] SITE) The system [employer] generated this result transmitted ref erence range: -SITE. T he reference range was not used to interpr et this result as normal/abnormal . ALLENS (test code = N/A ALLENS) O2 EQUIP (test code 980 O2-DEVICE = O2 EQUIP) FIO2 (test code = 30 % FIO2) A/C (test code = 20 A/C) PT. RR (test code = 26 PT. RR) PEEP (test code = 5 PEEP) VT (test code = VT) 380 VMIN (test code = 12.8 VMIN) PH (test code = 7.44 7.35-7.45 BGPH) PCO2 (test code = 41 MMHG 34.0-45.0 PCO2) PO2 (test code = 98 MMHG 79-87 H PO2) HCO3 (test code = 27.8 mmol/L 22.0-26.0 H HCO3) BE (test code = BE) 3.3 mmol/L -2.0-2.0 H THB (test code = 7.5 G/DL 12-16 L THB) % 02 HB (test code 95.7 % 96.0-100.0 L = ABGSAT) %COHB (test code = 2.1 % See_Comment H [Automat ed message] BGCO) The system [employer] generated this result transmitted ref erence range: -1.5. Th e reference range was not used to interpr et this result as normal/abnormal . % MET HB (test code 1.1 % 0.4-1.5 = %MET HB) CAO2 (test code = 10.3 VOL% 15.7-21.6 L CAO2) PF/RATIO (test code 327.0 = PF/RATIO) ANTICOAG?: LAST DOSE?:WHOLE BLOOD [id number] 03:46:00 Test Item Value Reference Range Interpretation Comments WHOLE BLOOD GLUCOSE 156 MG/DL 70-99 H Fastin g glucose (test code = POC GLU) normal <100 MG/DL- [employer] [place] recommend ation WHOLE BLOOD [id number] 21:00:00 Test Item Value Reference Range Interpretation Comments WHOLE BLOOD GLUCOSE 176 MG/DL 70-99 H Fastin g glucose (test code = POC GLU) normal <100 MG/DL- [employer] [place] [employer] recommend ation WHOLE BLOOD [id number] 18:40:00 Test Item Value Reference Range Interpretation Comments WHOLE BLOOD GLUCOSE 154 MG/DL 70-99 H Fastin g glucose (test code = POC GLU) normal <100 MG/DL- [employer] [place] [employer] recommend ation [id number] 15:16:00 Test Item Value Reference Range Interpretation Comments MG (test code = MG) 2.8 mg/dL 1.6-2.3 H WHOLE BLOOD [id number] 12:35:00 Test Item Value Reference Range Interpretation Comments WHOLE BLOOD GLUCOSE 140 MG/DL 70-99 H Fastin g glucose (test code = POC GLU) normal <100 MG/DL- [employer] [place] [employer] recommend ation [id number] 11:31:00 Test Item Value Reference Range Interpretation Comments K+ (test code = KSERUM) 3.9 MMOL/L 3.5-5.1 CHEST 1 VIEW [id number] 09:39:00 [facility] 1950 [facility] [place] [address] [id number] IMAGING REPORTPatient Name: ANGY COLLAZODateofilo of Service: [id number]: 70 Sex: F Order #: [id number] Room: [facility] 2SDOB: 1950 X-Ray Number: [id number] Record Number: [id number] Hospital Number: [id number] Physician: Jaswinder SHABAZZ Physician: Maddy COYNE: Chest APHistory: Covid 19Comparison: Chest x-ray 07/18/2020Findings: The support devices are stable where visualized. There arepersistent interstitial infiltrates and airspace opacities in the bilaterallungs. No definite pleural effusion or pneumothorax. The cardiac andsuperior mediastinal silhouettes are stable.Impression:No significant change from the prior examination.Electronically Signed By: Haris Chavez M.D., 07/19/2020 9:37 AMLegally authenticated by MURTAZA HERNANDEZ JR 2020-07-19 09:37:27WHOLE BLOOD [id number] 09:00:00 Test Item Value Reference Range Interpretation Comments WHOLE BLOOD GLUCOSE 141 MG/DL 70-99 H Fastin g glucose (test code = POC GLU) normal <100 MG/DL- [employer] [place] [employer] recommend ation WHOLE BLOOD [id number] 07:15:00 Test Item Value Reference Range Interpretation Comments WHOLE BLOOD GLUCOSE 135 MG/DL 70-99 H Fastin g glucose (test code = POC GLU) normal <100 MG/DL- [employer] [place] [employer] recommend ation WHOLE BLOOD [id number] 04:45:00 Test Item Value Reference Range Interpretation Comments WHOLE BLOOD GLUCOSE 162 MG/DL 70-99 H Fastin g glucose (test code = POC GLU) normal <100 MG/DL- [employer] [place] [employer] recommend ation BLOOD GAS [id number] 03:50:00 Test Item Value Reference Range Interpretation Comments SITE (test code = ARTHUR See_Comment [Automate d message] SITE) The system [employer] generated this result transmitted ref erence range: -SITE. T he reference range was not used to interpr et this result as normal/abnormal . ALLENS (test code = N/A ALLENS) O2 EQUIP (test code 980 O2-DEVICE = O2 EQUIP) FIO2 (test code = 40 % FIO2) A/C (test code = 20 A/C) PT. RR (test code = 26 PT. RR) PEEP (test code = 5 PEEP) VT (test code = VT) 380 VMIN (test code = 12.8 VMIN) PH (test code = 7.44 7.35-7.45 BGPH) PCO2 (test code = 44 MMHG 34.0-45.0 PCO2) PO2 (test code = 117 MMHG 79-87 H PO2) HCO3 (test code = 29.9 mmol/L 22.0-26.0 H HCO3) BE (test code = BE) 5.2 mmol/L -2.0-2.0 H THB (test code = 9.5 G/DL 12-16 L THB) % 02 HB (test code 97.1 % 96.0-100.0 = ABGSAT) %COHB (test code = 2.0 % See_Comment H [Automat ed message] BGCO) The system [employer] generated this result transmitted ref erence range: -1.5. e reference range was not used to interpr et this result as normal/abnormal . % MET HB (test code 0.8 % 0.4-1.5 = %MET HB) CAO2 (test code = 13.2 VOL% 15.7-21.6 L CAO2) PF/RATIO (test code 293.0 = PF/RATIO) ANTICOAG?: LAST DOSE?:[id number] 03:04:00 Test Item Value Reference Range Interpretation Comments PHOSPHOR (test code = PHOSPHOR) 5.2 MG/DL 2.5-4.5 H [id number] 03:01:00 Test Item Value Reference Range Interpretation Comments SODIUM (test code 146 MMOL/L 137-145 H = NA) K+ (test code = 3.5 MMOL/L 3.5-5.1 KSERUM) CHLORIDE (test 107 MMOL/L 98-107 code = CL) CO2 (test code = 29 MMOL/L 22-30 CO2) BUN (test code = 60 MG/DL 7-17 H BUN) CREA (test code = 1.4 MG/DL 0.7-1.2 H CREA) GLUCOSE (test code 156 MG/DL 70-99 H Fasting glucose = GLUCOSE) normal <100 MG/ DL- [employer] [place] recommendation* * CALCIUM (test code 8.4 MG/DL 8.4-10.2 = CABLOOD) TOTPROT (test code 5.6 G/DL 6.3-8.2 L = TOTPROT) ALBUMIN (test code 2.9 G/DL 3.5-5.0 L = ALBSERUM) BILITOT (test code 0.7 MG/DL 0.2-1.3 = BILITOT) AST (test code = 32 U/L 15-46 AST) PHOSALK (test code 69 U/L 38-126 = PHOSALK) ALTV (test code = 27 U/L 13-69 ALTV) GFR (test code = 40 A GFR of >9 0 GFR) mL/min/1.73m2 mL/min/1.73m2 is considered norm al. The GFR calcula tion on patients ove r 70 years of age is not validated by e production material handler an d may not represent t he patients true r enal function. [id number] 03:01:00 Test Item Value Reference Range Interpretation Comments MG (test code = MG) 2.7 mg/dL 1.6-2.3 H [id number] 02:36:00 Test Item Value Reference Range Interpretation Comments WBC (test code = 19.1 K/UL 3.5-10.9 H WBC) RBC (test code = 3.19 M/UL 4.0-5.0 L RBC) HGB (test code = 9.4 G/DL 11.5-15.5 L HGB) HCT (test code = 30.3 % 34-46 L HCT) MCV (test code = 95.0 FL 80-98 MCV) MCH (test code = 29.5 PG 28-32 MCH) MCHC (test code = 31.0 G/DL 32.5-36.5 L MCHC) RDW (test code = 16.0 % 11.5-14.5 H RDW) PLT (test code = 167 K/UL 150-450 PLT) MPV (test code = 14.3 FL 7.4-10.4 H MPV) MANDIFF (test code = NO MANDIFF) SCAN (test code = NO SCAN) NEUT% (test code = 68.8 % 40-75 NEUT%) LYMPH% (test code = 15.8 % 24-44 L LYMPH%) MONO% (test code = 12.4 % 0-13 MONO%) EOS% (test code = 1.6 % 0-4 EOS%) BASO % (test code = 0.3 % 0-2 BASO%) IG (test code = IG) 0 % 0-1 IG% (test code = 1.1 % 0-1 H IG% = Metam yelocytes, IG%) Myelocytes, and Promyelocytes. (Immature neutr ophils not including " bands".) > 3% IG indic ates risk of sepsis NRBC% (test code = 0 /100 WBC NRBC%) ABS NEUT (test code 13.2 K/UL 1.2-7.2 H = NEUT) WHOLE BLOOD [id number] 21:25:00 Test Item Value Reference Range Interpretation Comments WHOLE BLOOD GLUCOSE 157 MG/DL 70-99 H Fastin g glucose (test code = POC GLU) normal <100 MG/DL- [employer] [place] [employer] recommend ation WHOLE BLOOD [id number] 20:55:00 Test Item Value Reference Range Interpretation Comments WHOLE BLOOD GLUCOSE 153 MG/DL 70-99 H Fastin g glucose (test code = POC GLU) normal <100 MG/DL- [employer] [place] [employer] recommend ation WHOLE BLOOD [id number] 20:55:00 Test Item Value Reference Range Interpretation Comments WHOLE BLOOD GLUCOSE 150 MG/DL 70-99 H Fastin g glucose (test code = POC GLU) normal <100 MG/DL- [employer] [place] [employer] recommend ation WHOLE BLOOD [id number] 18:55:00 Test Item Value Reference Range Interpretation Comments WHOLE BLOOD GLUCOSE 124 MG/DL 70-99 H Fastin g glucose (test code = POC GLU) normal <100 MG/DL- [employer] [place] [employer] recommend ation WHOLE BLOOD [id number] 11:50:00 Test Item Value Reference Range Interpretation Comments WHOLE BLOOD GLUCOSE 149 MG/DL 70-99 H Fastin g glucose (test code = POC GLU) normal <100 MG/DL- [employer] [place] [employer] recommend ation CHEST 1 VIEW [id number] 08:59:00 [facility] : 1950 Sex: F[address] [id number] IMAGING REPORTPatient Name: Kristan COLLAZO of Service: [id number]: 70 Sex: F Order #: [id number] Room: [facility] 2SDOB: 1950 X-Ray Number: [id number] Record Number: [id number] Hospital Number: [id number] Physician: Jaswinder SHABAZZ Physician: Maddy COYNE: Chest APHistory: Covid 19Comparison: Chest x-ray 07/17/2020Findings: The support devices are stable where visualized. There arepersistent interstitial infiltrates and airspace opacities in the bilaterallungs. No definite pleural effusion or pneumothorax. The cardiac andsuperior mediastinal silhouettes are within normal limits.Impression:No significant change from the prior examination.Electronically Signed By: Haris Chavez M.D., 07/18/2020 8:57 AMLegally authenticated by MURTAZA HERNANDEZ JR 2020-07-18 08:57:17WHOLE BLOOD [id number] 07:20:00 Test Item Value Reference Range Interpretation Comments WHOLE BLOOD GLUCOSE 155 MG/DL 70-99 H Fastin g glucose (test code = POC GLU) normal <100 MG/DL- [employer] [place] [employer] recommend ation [id number] 05:22:00 Test Item Value Reference Range Interpretation Comments SODIUM (test code 145 MMOL/L 137-145 = NA) K+ (test code = 3.8 MMOL/L 3.5-5.1 KSERUM) CHLORIDE (test 104 MMOL/L 98-107 code = CL) CO2 (test code = 30 MMOL/L 22-30 CO2) BUN (test code = 51 MG/DL 7-17 H BUN) CREA (test code = 1.2 MG/DL 0.7-1.2 CREA) GLUCOSE (test code 144 MG/DL 70-99 H Fasting glucose = GLUCOSE) normal <100 MG/ DL- [employer] [place] [employer] recommendation* * CALCIUM (test code 8.8 MG/DL 8.4-10.2 = CABLOOD) TOTPROT (test code 6.1 G/DL 6.3-8.2 L = TOTPROT) ALBUMIN (test code 3.3 G/DL 3.5-5.0 L = ALBSERUM) BILITOT (test code 0.8 MG/DL 0.2-1.3 = BILITOT) AST (test code = 38 U/L 15-46 AST) PHOSALK (test code 69 U/L 38-126 = PHOSALK) ALTV (test code = 32 U/L 13-69 ALTV) GFR (test code = 47 A GFR of >9 0 GFR) mL/min/1.73m2 mL/min/1.73m2 is considered norm al. The GFR calcula tion on patients ove r 70 years of age is not validated by e production material handler an d may not represent t he patients true r enal function. [id number] 04:29:00 Test Item Value Reference Range Interpretation Comments WBC (test code = 18.4 K/UL 3.5-10.9 H WBC) RBC (test code = 4.00 M/UL 4.0-5.0 RBC) HGB (test code = 11.8 G/DL 11.5-15.5 HGB) HCT (test code = 37.4 % 34-46 HCT) MCV (test code = 93.5 FL 80-98 MCV) MCH (test code = 29.5 PG 28-32 MCH) MCHC (test code = 31.6 G/DL 32.5-36.5 L MCHC) RDW (test code = 15.6 % 11.5-14.5 H RDW) PLT (test code = 192 K/UL 150-450 PLT) MPV (test code = 14.4 FL 7.4-10.4 H MPV) MANDIFF (test code = NO MANDIFF) SCAN (test code = NO SCAN) NEUT% (test code = 72.2 % 40-75 NEUT%) LYMPH% (test code = 12.9 % 24-44 L LYMPH%) MONO% (test code = 11.7 % 0-13 MONO%) EOS% (test code = 1.8 % 0-4 EOS%) BASO % (test code = 0.2 % 0-2 BASO%) IG (test code = IG) 0 % 0-1 IG% (test code = 1.2 % 0-1 H IG% = Metam yelocytes, IG%) Myelocytes, and Promyelocytes. (Immature neutr ophils not including " bands".) > 3% IG indic ates risk of sepsis NRBC% (test code = 0 /100 WBC NRBC%) ABS NEUT (test code 13.3 K/UL 1.2-7.2 H = NEUT) BLOOD GAS [id number] 04:12:00 Test Item Value Reference Range Interpretation Comments SITE (test code = ARTHUR See_Comment [Automate d message] SITE) The system [employer] generated this result transmitted ref erence range: -SITE. T he reference range was not used to interpr et this result as normal/abnormal . ALLENS (test code = N/A ALLENS) O2 EQUIP (test code 980 O2-DEVICE = O2 EQUIP) FIO2 (test code = 40 % FIO2) A/C (test code = 20 A/C) PT. RR (test code = 37 PT. RR) PEEP (test code = 5 PEEP) VT (test code = VT) 380 VMIN (test code = 14.2 VMIN) PH (test code = 7.41 7.35-7.45 BGPH) PCO2 (test code = 47 MMHG 34.0-45.0 H PCO2) PO2 (test code = 115 MMHG 79-87 H PO2) HCO3 (test code = 29.8 mmol/L 22.0-26.0 H HCO3) BE (test code = BE) 4.4 mmol/L -2.0-2.0 H THB (test code = 11.9 G/DL 12-16 L THB) % 02 HB (test code 96.5 % 96.0-100.0 = ABGSAT) %COHB (test code = 2.1 % See_Comment H [Automat ed message] BGCO) The system [employer] generated this result transmitted ref erence range: -1.5. Th e reference range was not used to interpr et this result as normal/abnormal . % MET HB (test code 1.0 % 0.4-1.5 = %MET HB) CAO2 (test code = 16.3 VOL% 15.7-21.6 CAO2) PF/RATIO (test code 288.0 = PF/RATIO) ANTICOAG?: LAST DOSE?:WHOLE BLOOD [id number] 01:46:00 Test Item Value Reference Range Interpretation Comments WHOLE BLOOD GLUCOSE 148 MG/DL 70-99 H Fastin g glucose (test code = POC GLU) normal <100 MG/DL- [employer] [place] [employer] recommend ation WHOLE BLOOD [id number] 18:25:00 Test Item Value Reference Range Interpretation Comments WHOLE BLOOD GLUCOSE 131 MG/DL 70-99 H Fastin g glucose (test code = POC GLU) normal <100 MG/DL- [employer] [place] [employer] recommend ation CT HEAD W/O [id number] 17:50:00 [facility] : 1950 [facility] [place] [id number] IMAGING REPORTPatient Name: ANGY COLLAZODateofilo of Service: [id number]: 70 Sex: F Order #: [id number] Room: [facility] 2SDOB: 1950 X-Ray Number: [id number] Record Number: [id number] Hospital Number: [id number] Physician: Jaswinder SHABAZZ Physician: Amarjit COYNE CT 07/17/2020 4:56 PMHistory: Altered mental status with lower extremity weakness. Covid 19i nfection. Possible stroke. Neurological symptoms and deficits.Comparison: NoneTechnique: UnenhancedCT imaging of the head. This CT exam was performedusing one or more of the following dose reductiontechniques: Automatedexposure control, adjustment of the mA and/or KV according to patient size,or use of iterative reconstruction technique.Findings:There is no evidence of acute intracranial abnormality. Specifically, thereis no evidence of acute hemorrhage, infarct, contusion, hydrocephalus,midlineshift, or abnormal extra- axial collection. The calvarium is intact.There is patchy opacification of the right mastoid air cells as well as ofthe sphenoid sinus and right posterior ethmoid air cells.Impression:1. No acute intracranial abnormality.2. Right posterior ethmoid air cell, sphenoid sinus, andmastoid air celldisease.Electronically Signed By: Cyril Yen M.D., 07/17/2020 5:48 PMLegally authenticated by SCOT POLLOCK 2020-07-17 17:48:15VANCOMYCIN TROUGH 2020-07-17 14:33:00 Test Item Value Reference Range Interpretation Comments VANCTROU (test code = 10 UG/ML 10-20 In laurent y rare cases VANCTROU) heterophile ant ibodies may interfere w ith reagent causing erroneously low results. Any Vancomycin level result that is inconsistent wi th the clinical presen tation should be confi rmed with an alternate te st method. WHOLE BLOOD [id number] 11:50:00 Test Item Value Reference Range Interpretation Comments WHOLE BLOOD GLUCOSE 136 MG/DL 70-99 H Fastin g glucose (test code = POC GLU) normal <100 MG/DL- [employer] [place] recommend ation CULTURE, [id number] 10:16:00 Test Item Value Reference Range Interpretation Comments Report Text (test CWJ 2020-07-16 1048 code = Report Text) Report Text7 (test INSUFFICIENT GROWTH OF code = Report ORGANISM TO PROCESS FOR Text7) Report Text8 (test IDENTIFICATION AND code = Report SUSCEPTIBILITY STUDIES; Text8) Report Text9 (test HOLDING FOR BETTER GROWTH; code = Report Text9) Report Text10 (test PRELIMINARY REPORT code = Report Text10) Report Text11 (test code = Report Text11) Report Text12 (test CWJ 2020-07-17 1015 code = Report Text12) Report Text13 (test NORMAL RESPIRATORY RENE code = Report ISOLATED Text13) Report Text14 (test FINAL REPORT code = Report Text14) WHOLE BLOOD [id number] 09:45:00 Test Item Value Reference Range Interpretation Comments WHOLE BLOOD GLUCOSE 132 MG/DL 70-99 H Fastin g glucose (test code = POC GLU) normal <100 MG/DL- [employer] [place] [employer] recommend ation CHEST 1 VIEW [id number] 07:37:00 [facility] : 1950 Sex: F[address] [id number] IMAGING REPORTPatient Name: ANGY COLLAZODate of Service: [id number]: 70 Sex: F Order #: [id number] Room: [facility] 2SDOB: 1950 X-Ray Number: [id number] Record Number: [id number] Hospital Number: [id number] Physician: Jaswinder SHABAZZ Physician: Karissa CONYE one view 07/17/2020History: Covid 19 infection, pneumonia, intubationComparison: The prior dayTECHNIQUE: Semierect AP portable chest x-rayFINDINGS:Support devices are unchanged.Cardiac, hilar, and mediastinal structures are stable. Lungs still showincreased interstitial markings and scattered airspace opacities which areprobably due to pneumonia. No new bony or soft tissue abnormalities arei dentified.Impression:No improvement.Electronically Signed By: Yeison Srivastava M.D., 07/17/2020 7:35 AMLegally authenticated by LINO PETE 2020-07-17 07:35:24WHOLE BLOOD [id number] 07:25:00 Test Item Value Reference Range Interpretation Comments WHOLE BLOOD GLUCOSE 153 MG/DL 70-99 H Fastin g glucose (test code = POC GLU) normal <100 MG/DL- [employer] [place] [employer] recommend ation [id number] 05:02:00 Test Item Value Reference Range Interpretation Comments WBC (test code = 14.6 K/UL 3.5-10.9 H WBC) RBC (test code = 4.18 M/UL 4.0-5.0 RBC) HGB (test code = 12.3 G/DL 11.5-15.5 HGB) HCT (test code = 39.9 % 34-46 HCT) MCV (test code = 95.5 FL 80-98 MCV) MCH (test code = 29.4 PG 28-32 MCH) MCHC (test code = 30.8 G/DL 32.5-36.5 L MCHC) RDW (test code = 15.6 % 11.5-14.5 H RDW) PLT (test code = 146 K/UL 150-450 L PLT) MPV (test code = 14.0 FL 7.4-10.4 H MPV) MANDIFF (test code = NO MANDIFF) SCAN (test code = NO SCAN) NEUT% (test code = 75.4 % 40-75 H NEUT%) LYMPH% (test code = 11.8 % 24-44 L LYMPH%) MONO% (test code = 9.2 % 0-13 MONO%) EOS% (test code = 1.8 % 0-4 EOS%) BASO % (test code = 0.3 % 0-2 BASO%) IG (test code = IG) 0 % 0-1 IG% (test code = 1.5 % 0-1 H IG% = Metam yelocytes, IG%) Myelocytes, and Promyelocytes. (Immature neutr ophils not including " bands".) > 3% IG indic ates risk of sepsis NRBC% (test code = 0 /100 WBC NRBC%) ABS NEUT (test code 11.0 K/UL 1.2-7.2 H = NEUT) [id number] 04:36:00 Test Item Value Reference Range Interpretation Comments SODIUM (test code 143 MMOL/L 137-145 = NA) K+ (test code = 3.7 MMOL/L 3.5-5.1 KSERUM) CHLORIDE (test 104 MMOL/L 98-107 code = CL) CO2 (test code = 34 MMOL/L 22-30 H CO2) BUN (test code = 53 MG/DL 7-17 H BUN) CREA (test code = 1.1 MG/DL 0.7-1.2 CREA) GLUCOSE (test code 149 MG/DL 70-99 H Fasting glucose = GLUCOSE) normal <100 MG/ DL- [employer] [place] recommendation* * CALCIUM (test code 8.6 MG/DL 8.4-10.2 = CABLOOD) TOTPROT (test code 5.9 G/DL 6.3-8.2 L = TOTPROT) ALBUMIN (test code 3.1 G/DL 3.5-5.0 L = ALBSERUM) BILITOT (test code 0.9 MG/DL 0.2-1.3 = BILITOT) AST (test code = 38 U/L 15-46 AST) PHOSALK (test code 67 U/L 38-126 = PHOSALK) ALTV (test code = 34 U/L 13-69 ALTV) GFR (test code = 52 A GFR of >9 0 GFR) mL/min/1.73m2 mL/min/1.73m2 is considered norm al. The GFR calcula tion on patients ove r 70 years of age is not validated by [facility] production material handler an d may not represent t he patients true r enal function. BLOOD GAS [id number] 03:11:00 Test Item Value Reference Range Interpretation Comments SITE (test code = ARTHUR See_Comment [Automate d message] SITE) The system [employer] generated this result transmitted ref erence range: -SITE. T he reference range was not used to interpr et this result as normal/abnormal . ALLENS (test code = N/A ALLENS) O2 EQUIP (test code 980 O2-DEVICE = O2 EQUIP) FIO2 (test code = 40 % FIO2) A/C (test code = 20 A/C) PT. RR (test code = 22 PT. RR) PEEP (test code = 5 PEEP) VT (test code = VT) 380 VMIN (test code = 8.68 VMIN) PH (test code = 7.42 7.35-7.45 BGPH) PCO2 (test code = 48 MMHG 34.0-45.0 H PCO2) PO2 (test code = 98 MMHG 79-87 H PO2) HCO3 (test code = 31.1 mmol/L 22.0-26.0 H HCO3) BE (test code = BE) 5.6 mmol/L -2.0-2.0 H THB (test code = 12.7 G/DL 12-16 THB) % 02 HB (test code 96.5 % 96.0-100.0 = ABGSAT) %COHB (test code = 2.1 % See_Comment H [Automat ed message] BGCO) The system [employer] generated this result transmitted ref erence range: -1.5. Th e reference range was not used to interpr et this result as normal/abnormal . % MET HB (test code 0.7 % 0.4-1.5 = %MET HB) CAO2 (test code = 17.3 VOL% 15.7-21.6 CAO2) PF/RATIO (test code 245.0 = PF/RATIO) ANTICOAG?: LAST DOSE?:WHOLE BLOOD [id number] 01:30:00 Test Item Value Reference Range Interpretation Comments WHOLE BLOOD GLUCOSE 155 MG/DL 70-99 H Fastin g glucose (test code = POC GLU) normal <100 MG/DL- [employer] [place] [employer] recommend ation WHOLE BLOOD [id number] 21:45:00 Test Item Value Reference Range Interpretation Comments WHOLE BLOOD GLUCOSE 118 MG/DL 70-99 H Fastin g glucose (test code = POC GLU) normal <100 MG/DL- [employer] [place] [employer] recommend ation WHOLE BLOOD [id number] 18:40:00 Test Item Value Reference Range Interpretation Comments WHOLE BLOOD GLUCOSE 134 MG/DL 70-99 H Fastin g glucose (test code = POC GLU) normal <100 MG/DL- [employer] [place] [employer] recommend ation WHOLE BLOOD [id number] 13:40:00 Test Item Value Reference Range Interpretation Comments WHOLE BLOOD GLUCOSE 150 MG/DL 70-99 H Fastin g glucose (test code = POC GLU) normal <100 MG/DL- [employer] [place] [employer] recommend ation CDIFF AMPLIFIED [id number] 12:50:00 Test Item Value Reference Range Interpretation Comments C DIFFICILE TESTING NEGATIVE NEGATIVE PSEUDOME MBRANOUS COLITIS, ON STOOL (test code BY JAN COMER, IS = CDIFF) DIARRHEA, IN PA TIENTS OLDER THAN 6 MO NTHS OF AGE, CAUSED BY LONG-TERM ANTIBIOTIC EXPO SURE. NON-DIARRHEAL S TOOLS WILL NOT BE TESTED. C.DIFF LOT # (test [id number] code = CDIFFLOT) C. DIFF EXPIRATION 09-17 DATE (test code = CDIFFEXP) WHOLE BLOOD [id number] 08:35:00 Test Item Value Reference Range Interpretation Comments WHOLE BLOOD GLUCOSE 118 MG/DL 70-99 H Fastin g glucose (test code = POC GLU) normal <100 MG/DL- [employer] [place] [employer] recommend ation WHOLE BLOOD [id number] 08:00:00 Test Item Value Reference Range Interpretation Comments WHOLE BLOOD GLUCOSE 135 MG/DL 70-99 H Fastin g glucose (test code = POC GLU) normal <100 MG/DL- [employer] [place] [employer] recommend ation CHEST 1 VIEW [id number] 06:49:00 [facility] 1950 [facility] [place] [address] [id number] IMAGING REPORTPatient Name: ANGY COLLAZOBlairteofilo of Service: [id number]: 70 Sex: F Order #: [id number] Room: [facility] 2SDOB: 1950 X-Ray Number: [id number] Record Number: [id number] Hospital Number: [id number] Physician: Jaswinder SHABAZZ Physician: Toir COYNE Chest, 07/16/2020 5:02 AMHISTORY: f/u. Covid 19 pneumonia. Shortness of breath.COMPARI SON: 07/15/2020TECHNIQUE: Portable chest 1 viewFINDINGS:The life-support devices are unchanged. Thecardiac silhouette is stable.There are persistent diffuse interstitial infiltrates throughout the lungsbilaterally. There is no effusion or pneumothorax.IMPRESSION:Stable chest.Electronically Signed By: Cyril Yen M.D., 07/16/2020 6:46 AMLegally authenticated by SCOT POLLOCK 2020-07-16 06:46:[id number] 05:55:00 Test Item Value Reference Range Interpretation Comments PROCALCITONIN (test 0.275 ng/mL 0.0-0.5 0 - 0.5 ng/mL- Low code = PROCAL) risk for prog ression to severe sepsi s and/or septic s hock. PCT >0.5 is considered elev ated. 2.0 - 10 ng/mL- High risk for progre ssion to severe sepsi s and/or septic s hock. >/= 10 ng/mL - Severe sepsis o r septic shock. H igh risk of Mortali ty. PCT levels <0.5 ng/mL do not ex clude an infection. WHOLE BLOOD [id number] 05:30:00 Test Item Value Reference Range Interpretation Comments WHOLE BLOOD GLUCOSE 142 MG/DL 70-99 H Fastin g glucose (test code = POC GLU) normal <100 MG/DL- [employer] [place] [employer] recommend ation THYROID STIMULATION [id number] 05:21:00 Test Item Value Reference Range Interpretation Comments TSH (test code = TSH) 3.18 UIU/ML 0.465-4.68 FREE [id number] 05:21:00 Test Item Value Reference Range Interpretation Comments FT4 (test code = FT4) 1.20 ng/dL 0.78-2.19 FREE [id number] 05:21:00 Test Item Value Reference Range Interpretation Comments FREE T3 (test code = T3FREE) 1.69 pg/mL 2.77-5.27 L BLOOD GAS [id number] 04:41:00 Test Item Value Reference Range Interpretation Comments SITE (test code = ARTHUR See_Comment [Automate d message] SITE) The system [employer] generated this result transmitted ref erence range: -SITE. T he reference range was not used to interpr et this result as normal/abnormal . ALLENS (test code = N/A ALLENS) O2 EQUIP (test code 980 O2-DEVICE = O2 EQUIP) FIO2 (test code = 40 % FIO2) A/C (test code = 20 A/C) PT. RR (test code = 20 PT. RR) PEEP (test code = 5 PEEP) VT (test code = VT) 380 VMIN (test code = 7.43 VMIN) PH (test code = 7.38 7.35-7.45 BGPH) PCO2 (test code = 57 MMHG 34.0-45.0 H PCO2) PO2 (test code = 76 MMHG 79-87 L PO2) HCO3 (test code = 33.7 mmol/L 22.0-26.0 H HCO3) BE (test code = BE) 6.8 mmol/L -2.0-2.0 H THB (test code = 13.7 G/DL 12-16 THB) % 02 HB (test code 93.3 % 96.0-100.0 L = ABGSAT) %COHB (test code = 2.3 % See_Comment H [Automat ed message] BGCO) The system [employer] generated this result transmitted ref erence range: -1.5. Th e reference range was not used to interpr et this result as normal/abnormal . % MET HB (test code 1.1 % 0.4-1.5 = %MET HB) CAO2 (test code = 18.0 VOL% 15.7-21.6 CAO2) PF/RATIO (test code 190 = PF/RATIO) ANTICOAG?: LAST DOSE?:[id number] 04:11:00 Test Item Value Reference Range Interpretation Comments WBC (test code = 17.8 K/UL 3.5-10.9 H WBC) RBC (test code = 4.45 M/UL 4.0-5.0 RBC) HGB (test code = 12.9 G/DL 11.5-15.5 HGB) HCT (test code = 42.8 % 34-46 HCT) MCV (test code = 96.2 FL 80-98 MCV) MCH (test code = 29.0 PG 28-32 MCH) MCHC (test code = 30.1 G/DL 32.5-36.5 L MCHC) RDW (test code = 16.2 % 11.5-14.5 H RDW) PLT (test code = 163 K/UL 150-450 PLT) MPV (test code = 13.8 FL 7.4-10.4 H MPV) MANDIFF (test code = NO MANDIFF) SCAN (test code = NO SCAN) NEUT% (test code = 69.4 % 40-75 NEUT%) LYMPH% (test code = 18.1 % 24-44 L LYMPH%) MONO% (test code = 8.7 % 0-13 MONO%) EOS% (test code = 1.6 % 0-4 EOS%) BASO % (test code = 0.2 % 0-2 BASO%) IG (test code = IG) 0 % 0-1 IG% (test code = 2.0 % 0-1 H IG% = Metam yelocytes, IG%) Myelocytes, and Promyelocytes. (Immature neutr ophils not including " bands".) > 3% IG indic ates risk of sepsis NRBC% (test code = 0 /100 WBC NRBC%) ABS NEUT (test code 12.3 K/UL 1.2-7.2 H = NEUT) [id number] 03:55:00 Test Item Value Reference Range Interpretation Comments SODIUM (test code 144 MMOL/L 137-145 = NA) K+ (test code = 4.1 MMOL/L 3.5-5.1 KSERUM) CHLORIDE (test 103 MMOL/L 98-107 code = CL) CO2 (test code = 34 MMOL/L 22-30 H CO2) BUN (test code = 56 MG/DL 7-17 H BUN) CREA (test code = 1.3 MG/DL 0.7-1.2 H CREA) GLUCOSE (test code 115 MG/DL 70-99 H Fasting glucose = GLUCOSE) normal <100 MG/ DL- [employer] [place] [employer] recommendation* * CALCIUM (test code 8.4 MG/DL 8.4-10.2 = CABLOOD) TOTPROT (test code 6.0 G/DL 6.3-8.2 L = TOTPROT) ALBUMIN (test code 3.1 G/DL 3.5-5.0 L = ALBSERUM) BILITOT (test code 1.1 MG/DL 0.2-1.3 = BILITOT) AST (test code = 43 U/L 15-46 AST) PHOSALK (test code 66 U/L 38-126 = PHOSALK) ALTV (test code = 42 U/L 13-69 ALTV) GFR (test code = 43 A GFR of >9 0 GFR) mL/min/1.73m2 mL/min/1.73m2 is considered norm al. The GFR calcula tion on patients ove r 70 years of age is not validated by e production material handler an d may not represent t he patients true r enal function. [id number] 03:55:00 Test Item Value Reference Range Interpretation Comments MG (test code = MG) 2.6 mg/dL 1.6-2.3 H [id number] 03:55:00 Test Item Value Reference Range Interpretation Comments PHOSPHOR (test code = PHOSPHOR) 4.2 MG/DL 2.5-4.5 WHOLE BLOOD [id number] 02:02:00 Test Item Value Reference Range Interpretation Comments WHOLE BLOOD GLUCOSE 135 MG/DL 70-99 H Fastin g glucose (test code = POC GLU) normal <100 MG/DL- [employer] [place] [employer] recommend ation WHOLE BLOOD [id number] 19:00:00 Test Item Value Reference Range Interpretation Comments WHOLE BLOOD GLUCOSE 119 MG/DL 70-99 H Fastin g glucose (test code = POC GLU) normal <100 MG/DL- [employer] [place] [employer] recommend ation GRAM [id number] 14:03:00 Test Item Value Reference Range Interpretation Comments Report Text (test code CWJ 2020-07-15 1403 = Report Text) Report Text7 (test MANY WBC SEEN code = Report Text7) Report Text8 (test CWJ 2020-07-15 1404 code = Report Text8) Report Text9 (test RARE GRAM POSITIVE code = Report Text9) COCCI SEEN [id number] 13:03:00 Test Item Value Reference Range Interpretation Comments GLUCOSE (test code = URGLU) NEGATIVE MG/DL NEG-100 BILIRUBN (test code = URBILI) NEGATIVE NEGATIVE KETONE (test code = URKET) NEGATIVE MG/DL NEGATIVE BLOOD (test code = URBLD) LARGE UR PH (test code = URPH) 6.5 5.0-7.5 PROTEIN (test code = URPRO) 30 MG/DL NEGATIVE NITRITES (test code = URNIT) NEGATIVE NEGATIVE UROBILINGEN (test code = 0.2 EU/DL 0.2-1.0 URURO) LEUKOCYT (test code = URLEU) LARGE NEGATIVE UA COLOR (test code = UA YELLOW YELLOW COLOR) CLARITY (test code = CLARITY) CLOUDY CLEAR SP GRAV (test code = URSPGRAV) 1.021 1.000-1.025 UAMICRO (test code = UAMICRO) YES WBC (test code = URWBC) 162 /HPF 0-5 H RBC (test code = URRBC) 621 /HPF 0-2 H CASTS (test code = CAST) 5 /LPF 0-3 H UR EPI (test code = EPI) 23 /LPF BACTERIA (test code = NEGATIVE NONE BACTERIA) YEAST (test code = YEAST) MANY /HPF NONE WHOLE BLOOD [id number] 12:45:00 Test Item Value Reference Range Interpretation Comments WHOLE BLOOD GLUCOSE 159 MG/DL 70-99 H Fastin g glucose (test code = POC GLU) normal <100 MG/DL- [employer] [place] [employer] recommend ation WHOLE BLOOD [id number] 10:05:00 Test Item Value Reference Range Interpretation Comments WHOLE BLOOD GLUCOSE 106 MG/DL 70-99 Fastin g glucose (test code = POC GLU) normal <100 MG/DL- [employer] [place] [employer] recommend ation BLOOD GAS [id number] 08:45:00 Test Item Value Reference Range Interpretation Comments SITE (test code = AL See_Comment [Automate d message] SITE) The system [employer] generated this result transmitted ref erence range: -SITE. T he reference range was not used to interpr et this result as normal/abnormal . ALLENS (test code = NA ALLENMaulik) O2 EQUIP (test code VENT O2-DEVICE = O2 EQUIP) FIO2 (test code = 40 % FIO2) A/C (test code = 20 A/C) PEEP (test code = 6 PEEP) VT (test code = VT) 380 PH (test code = 7.38 7.35-7.45 BGPH) PCO2 (test code = 54 MMHG 34.0-45.0 H PCO2) PO2 (test code = 73 MMHG 79-87 L PO2) HCO3 (test code = 31.9 mmol/L 22.0-26.0 H HCO3) BE (test code = BE) 5.4 mmol/L -2.0-2.0 H THB (test code = 13.2 G/DL 12-16 THB) % 02 HB (test code 93.8 % 96.0-100.0 L = ABGSAT) %COHB (test code = 2.5 % See_Comment H [Automat ed message] BGCO) The system [employer] generated this result transmitted ref erence range: -1.5. Th e reference range was not used to interpr et this result as normal/abnormal . % MET HB (test code 0.7 % 0.4-1.5 = %MET HB) CAO2 (test code = 17.4 VOL% 15.7-21.6 CAO2) PF/RATIO (test code 183 = PF/RATIO) ANTICOAG?: LAST DOSE?:CHEST 1 VIEW [id number] 07:16:00 [facility] : 1950 Sex: F[address] [id number] IMAGING REPORTPatient Name: ANGY COLLAZODate of Service: [id number]: 70 Sex: F Order #: [id number] Room: [facility] 2SDOB: 1950 X-Ray Number: [id number] Record Number: [id number] Hospital Number: [id number] Physician: Jaswinder SHABAZZ Physician: Karissa COYNE one view 07/15/2020History: Covid 19 infection, pneumonia, intubationComparison: The prior dayTECHNIQUE: Semierect AP portable chest x-rayFINDINGS:Support devices are unchanged.Cardiac, hilar, and mediastinal structures are stable. Lungs still showincreased interstitial markings and scattered airspace opacities which areprobably due to pneumonia. No new bony or soft tissue abnormalities arei dentified.Impression:No improvement.Electronically Signed By: Yeison Srivastava M.D., 07/15/2020 7:13 AMLegally authenticated by LINO PETE 2020-07-15 07:13:47WHOLE BLOOD [id number] 06:10:00 Test Item Value Reference Range Interpretation Comments WHOLE BLOOD GLUCOSE 96 MG/DL 70-99 Fastin g glucose (test code = POC GLU) normal <100 MG/DL- [employer] [place] [employer] recommendation* * [id number] 03:59:00 Test Item Value Reference Range Interpretation Comments SODIUM (test code 144 MMOL/L 137-145 = NA) K+ (test code = 3.9 MMOL/L 3.5-5.1 KSERUM) CHLORIDE (test 105 MMOL/L 98-107 code = CL) CO2 (test code = 32 MMOL/L 22-30 H CO2) BUN (test code = 55 MG/DL 7-17 H BUN) CREA (test code = 1.3 MG/DL 0.7-1.2 H CREA) GLUCOSE (test code 108 MG/DL 70-99 H Fasting glucose = GLUCOSE) normal <100 MG/ DL- [employer] recommendation* * CALCIUM (test code 8.5 MG/DL 8.4-10.2 = CABLOOD) TOTPROT (test code 6.0 G/DL 6.3-8.2 L = TOTPROT) ALBUMIN (test code 3.2 G/DL 3.5-5.0 L = ALBSERUM) BILITOT (test code 1.2 MG/DL 0.2-1.3 = BILITOT) AST (test code = 47 U/L 15-46 H AST) PHOSALK (test code 72 U/L 38-126 = PHOSALK) ALTV (test code = 47 U/L 13-69 ALTV) GFR (test code = 43 A GFR of >9 0 GFR) mL/min/1.73m2 mL/min/1.73m2 is considered norm al. The GFR calcula tion on patients ove r 70 years of age is not validated by e production material handler an d may not represent t he patients true r enal function. [id number] 03:21:00 Test Item Value Reference Range Interpretation Comments WBC (test code = 17.4 K/UL 3.5-10.9 H WBC) RBC (test code = 4.60 M/UL 4.0-5.0 RBC) HGB (test code = 13.5 G/DL 11.5-15.5 HGB) HCT (test code = 42.8 % 34-46 HCT) MCV (test code = 93.0 FL 80-98 MCV) MCH (test code = 29.3 PG 28-32 MCH) MCHC (test code = 31.5 G/DL 32.5-36.5 L MCHC) RDW (test code = 16.2 % 11.5-14.5 H RDW) PLT (test code = 183 K/UL 150-450 PLT) MPV (test code = 13.6 FL 7.4-10.4 H MPV) MANDIFF (test code = NO MANDIFF) SCAN (test code = NO SCAN) NEUT% (test code = 68.2 % 40-75 NEUT%) LYMPH% (test code = 18.5 % 24-44 L LYMPH%) MONO% (test code = 7.7 % 0-13 MONO%) EOS% (test code = 1.9 % 0-4 EOS%) BASO % (test code = 0.4 % 0-2 BASO%) IG (test code = IG) 1 % 0-1 IG% (test code = 3.3 % 0-1 H IG% = Metam yelocytes, IG%) Myelocytes, and Promyelocytes. (Immature neutr ophils not including " bands".) > 3% IG indic ates risk of sepsis NRBC% (test code = 0 /100 WBC NRBC%) ABS NEUT (test code 11.9 K/UL 1.2-7.2 H = NEUT) BLOOD GAS [id number] 02:44:00 Test Item Value Reference Range Interpretation Comments SITE (test code = ARTHUR See_Comment [Automate d message] SITE) The system [employer] generated this result transmitted ref erence range: -SITE. T he reference range was not used to interpr et this result as normal/abnormal . ALLENS (test code = NA ALLENS) O2 EQUIP (test code VENT O2-DEVICE = O2 EQUIP) FIO2 (test code = 40 % FIO2) A/C (test code = 18 A/C) PT. RR (test code = 21 TOTAL PT. RR) PEEP (test code = 7 PEEP) VT (test code = VT) 380 PIP (test code = 32 PIP) VMIN (test code = 7.95 VMIN) PH (test code = 7.37 7.35-7.45 BGPH) PCO2 (test code = 57 MMHG 34.0-45.0 H PCO2) PO2 (test code = 75 MMHG 79-87 L PO2) HCO3 (test code = 33.0 mmol/L 22.0-26.0 H HCO3) BE (test code = BE) 6.0 mmol/L -2.0-2.0 H THB (test code = 13.8 G/DL 12-16 THB) % 02 HB (test code 93.0 % 96.0-100.0 L = ABGSAT) %COHB (test code = 2.1 % See_Comment H [Automat ed message] BGCO) The system [employer] generated this result transmitted ref erence range: -1.5. Th e reference range was not used to interpr et this result as normal/abnormal . % MET HB (test code 1.1 % 0.4-1.5 = %MET HB) CAO2 (test code = 18.1 VOL% 15.7-21.6 CAO2) PF/RATIO (test code 188 = PF/RATIO) ANTICOAG?: LAST DOSE?:WHOLE BLOOD [id number] 02:35:00 Test Item Value Reference Range Interpretation Comments WHOLE BLOOD GLUCOSE 111 MG/DL 70-99 H Fastin g glucose (test code = POC GLU) normal <100 MG/DL- [employer] [place] [employer] recommend ation WHOLE BLOOD [id number] 02:35:00 Test Item Value Reference Range Interpretation Comments WHOLE BLOOD GLUCOSE 137 MG/DL 70-99 H Fastin g glucose (test code = POC GLU) normal <100 MG/DL- [employer] [place] [employer] recommend ation WHOLE BLOOD [id number] 02:35:00 Test Item Value Reference Range Interpretation Comments WHOLE BLOOD GLUCOSE 171 MG/DL 70-99 Fastin g glucose (test code = POC GLU) normal <100 MG/DL- [employer] [place] [employer] recommend ation WHOLE BLOOD [id number] 00:30:00 Test Item Value Reference Range Interpretation Comments WHOLE BLOOD GLUCOSE 117 MG/DL 70-99 H Fastin g glucose (test code = POC GLU) normal <100 MG/DL- [employer] [place] [employer] recommend ation WHOLE BLOOD [id number] 16:50:00 Test Item Value Reference Range Interpretation Comments WHOLE BLOOD GLUCOSE 148 MG/DL 70-99 H Fastin g glucose (test code = POC GLU) normal <100 MG/DL- [employer] [place] [employer] recommend ation [id number] 14:16:00 Test Item Value Reference Range Interpretation Comments MG (test code = MG) 2.4 mg/dL 1.6-2.3 H [id number] 13:51:00 Test Item Value Reference Range Interpretation Comments K+ (test code = KSERUM) 4.2 MMOL/L 3.5-5.1 WHOLE BLOOD [id number] 08:30:00 Test Item Value Reference Range Interpretation Comments WHOLE BLOOD GLUCOSE 105 MG/DL 70-99 Fastin g glucose (test code = POC GLU) normal <100 MG/DL- [employer] [place] [employer] recommend ation BLOOD GAS [id number] 08:06:00 Test Item Value Reference Range Interpretation Comments SITE (test code = ARTHUR See_Comment [Automate d message] SITE) The system [employer] generated this result transmitted ref erence range: -SITE. T he reference range was not used to interpr et this result as normal/abnormal . ALLENS (test code = N/A ALLENS) O2 EQUIP (test code 980 O2-DEVICE = O2 EQUIP) FIO2 (test code = 50 % FIO2) A/C (test code = 28 A/C) PEEP (test code = 7 PEEP) VT (test code = VT) 400 PH (test code = 7.53 7.35-7.45 H BGPH) PCO2 (test code = 36 MMHG 34.0-45.0 PCO2) PO2 (test code = 75 MMHG 79-87 L PO2) HCO3 (test code = 30.1 mmol/L 22.0-26.0 H HCO3) BE (test code = BE) 7.2 mmol/L -2.0-2.0 H THB (test code = 14.3 G/DL 12-16 THB) % 02 HB (test code 94.5 % 96.0-100.0 L = ABGSAT) %COHB (test code = 1.9 % See_Comment H [Automat ed message] BGCO) The system [employer] generated this result transmitted ref erence range: -1.5. Th e reference range was not used to interpr et this result as normal/abnormal . % MET HB (test code 1.1 % 0.4-1.5 = %MET HB) CAO2 (test code = 19.0 VOL% 15.7-21.6 CAO2) PF/RATIO (test code 150.0 = PF/RATIO) ANTICOAG?: LAST DOSE?:CHEST 1 VIEW [id number] 07:16:00 [facility] [place] [facility] ANGY COLLAZO : 1950 [facility] [place], [place] [address]FVHFEQAXYN IMAGING REPORTPatient Name: Kristan COLLAZO of Service: [id number]: 70 Sex: F Order #: [id number] Room: [facility] 2SDOB: 1950 X-Ray Number: [id number] Record Number: [id number] Hospital Number: [id number] Physician: Jaswinder SHABAZZ Physician: Karissa COYNE one view 07/14/2020History: Covid 19 infection, pneumonia, intubationComparison: The prior dayTECHNIQUE: Semierect AP portable chest x-rayFINDINGS:Support devices are unchanged.Cardiac, hilar, and mediastinal structures are stable. Lungs still showincreased interstitial markings and scattered airspace opacities which areprobably due to pneumonia. Findings are worse, particularly at the rightlung base. No new bony or soft tissue abnormalities are identified.Impression:Worsening pulmonary infiltrates.Electronically Signed By: Yeison Srivastava M.D., 07/14/2020 7:14 AMLegally authenticated by LEIA 2020-07-14 07:14:26WHOLE BLOOD [id number] 06:15:00 Test Item Value Reference Range Interpretation Comments WHOLE BLOOD GLUCOSE 107 MG/DL 70-99 Fastin g glucose (test code = POC GLU) normal <100 MG/DL- [employer] [place] [employer] recommend ation WHOLE BLOOD [id number] 05:40:00 Test Item Value Reference Range Interpretation Comments WHOLE BLOOD GLUCOSE 104 MG/DL 70-99 Fastin g glucose (test code = POC GLU) normal <100 MG/DL- [employer] [place] [employer] recommend ation [id number] 05:30:00 Test Item Value Reference Range Interpretation Comments MG (test code = MG) 2.2 mg/dL 1.6-2.3 [id number] 04:20:00 Test Item Value Reference Range Interpretation Comments WBC (test code = 12.7 K/UL 3.5-10.9 H WBC) RBC (test code = 4.51 M/UL 4.0-5.0 RBC) HGB (test code = 13.2 G/DL 11.5-15.5 HGB) HCT (test code = 40.9 % 34-46 HCT) MCV (test code = 90.7 FL 80-98 MCV) MCH (test code = 29.3 PG 28-32 MCH) MCHC (test code = 32.3 G/DL 32.5-36.5 L MCHC) RDW (test code = 15.6 % 11.5-14.5 H RDW) PLT (test code = 173 K/UL 150-450 PLT) MPV (test code = 13.6 FL 7.4-10.4 H MPV) MANDIFF (test code = NO MANDIFF) SCAN (test code = NO SCAN) NEUT% (test code = 67.1 % 40-75 NEUT%) LYMPH% (test code = 20.2 % 24-44 L LYMPH%) MONO% (test code = 6.8 % 0-13 MONO%) EOS% (test code = 1.8 % 0-4 EOS%) BASO % (test code = 0.2 % 0-2 BASO%) IG (test code = IG) 1 % 0-1 IG% (test code = 3.9 % 0-1 H IG% = Metam yelocytes, IG%) Myelocytes, and Promyelocytes. (Immature neutr ophils not including " bands".) > 3% IG indic ates risk of sepsis NRBC% (test code = 0 /100 WBC NRBC%) ABS NEUT (test code 8.5 K/UL 1.2-7.2 H = NEUT) [id number] 04:19:00 Test Item Value Reference Range Interpretation Comments SODIUM (test code 144 MMOL/L 137-145 = NA) K+ (test code = 3.4 MMOL/L 3.5-5.1 L KSERUM) CHLORIDE (test 102 MMOL/L 98-107 code = CL) CO2 (test code = 34 MMOL/L 22-30 H CO2) BUN (test code = 60 MG/DL 7-17 H BUN) CREA (test code = 1.4 MG/DL 0.7-1.2 H CREA) GLUCOSE (test code 97 MG/DL 70-99 Fasting glucose = GLUCOSE) normal <100 MG/ DL- [employer] [place] [employer] recommendation* * CALCIUM (test code 8.4 MG/DL 8.4-10.2 = CABLOOD) TOTPROT (test code 5.7 G/DL 6.3-8.2 L = TOTPROT) ALBUMIN (test code 3.1 G/DL 3.5-5.0 L = ALBSERUM) BILITOT (test code 1.1 MG/DL 0.2-1.3 = BILITOT) AST (test code = 46 U/L 15-46 AST) PHOSALK (test code 64 U/L 38-126 = PHOSALK) ALTV (test code = 51 U/L 13-69 ALTV) GFR (test code = 40 A GFR of >9 0 GFR) mL/min/1.73m2 mL/min/1.73m2 is considered norm al. The GFR calcula tion on patients ove r 70 years of age is not validated by [facility] production material handler an d may not represent t he patients true r enal function. BLOOD GAS [id number] 03:06:00 Test Item Value Reference Range Interpretation Comments SITE (test code = ARTHUR See_Comment [Automate d message] SITE) The system [employer] generated this result transmitted ref erence range: -SITE. T reference range was not used to interpr et this result as normal/abnormal . ALLENS (test code = NA ALLENS) O2 EQUIP (test code VENT O2-DEVICE = O2 EQUIP) FIO2 (test code = 50 % FIO2) A/C (test code = 28 A/C) PT. RR (test code = 28 PT. RR) PEEP (test code = 7 PEEP) VT (test code = VT) 420 PIP (test code = 24 PIP) VMIN (test code = 12.0 VMIN) PH (test code = 7.52 7.35-7.45 H BGPH) PCO2 (test code = 37 MMHG 34.0-45.0 PCO2) PO2 (test code = 69 MMHG 79-87 L PO2) HCO3 (test code = 30.2 mmol/L 22.0-26.0 H HCO3) BE (test code = BE) 7.0 mmol/L -2.0-2.0 H THB (test code = 12.8 G/DL 12-16 THB) % 02 HB (test code 94.0 % 96.0-100.0 L = ABGSAT) %COHB (test code = 1.8 % See_Comment H [Automat ed message] BGCO) The system [employer] generated this result transmitted ref erence range: -1.5. Th e reference range was not used to interpr et this result as normal/abnormal . % MET HB (test code 0.8 % 0.4-1.5 = %MET HB) CAO2 (test code = 16.9 VOL% 15.7-21.6 CAO2) PF/RATIO (test code 138.0 = PF/RATIO) ANTICOAG?: LAST DOSE?:WHOLE BLOOD [id number] 23:45:00 Test Item Value Reference Range Interpretation Comments WHOLE BLOOD GLUCOSE 119 MG/DL 70-99 H Fastin g glucose (test code = POC GLU) normal <100 MG/DL- [employer] [place] [employer] recommend ation WHOLE BLOOD [id number] 18:10:00 Test Item Value Reference Range Interpretation Comments WHOLE BLOOD GLUCOSE 198 MG/DL 70-99 H Fastin g glucose (test code = POC GLU) normal <100 MG/DL- [place] [employer] recommend ation WHOLE BLOOD [id number] 16:30:00 Test Item Value Reference Range Interpretation Comments WHOLE BLOOD GLUCOSE 101 MG/DL 70-99 Fastin g glucose (test code = POC GLU) normal <100 MG/DL- [place] [employer] recommend ation BLOOD GAS [id number] 14:21:00 Test Item Value Reference Range Interpretation Comments SITE (test code = ARTLINE See_Comment [Automate d message] SITE) The [employer] generated this result transmitted ref erence range: -SITE. T he reference range was not used to interpr et this result as normal/abnormal . ALLENS (test code = N/A ALLENS) O2 EQUIP (test code VENT O2-DEVICE = O2 EQUIP) FIO2 (test code = 50 % FIO2) A/C (test code = 28 A/C) PT. RR (test code = 28 TOTAL PT. RR) PEEP (test code = 7 PEEP) VT (test code = VT) 420 VMIN (test code = 12.0 VMIN) PH (test code = 7.50 7.35-7.45 H BGPH) PCO2 (test code = 44 MMHG 34.0-45.0 PCO2) PO2 (test code = 87 MMHG 79-87 PO2) HCO3 (test code = 34.3 mmol/L 22.0-26.0 H HCO3) BE (test code = BE) 9.9 mmol/L -2.0-2.0 H THB (test code = 13.2 G/DL 12-16 THB) % 02 HB (test code 95.2 % 96.0-100.0 L = ABGSAT) %COHB (test code = 1.5 % See_Comment [Automat ed message] BGCO) The [employer] generated this result transmitted ref erence range: -1.5. Th e reference range was not used to interpr et this result as normal/abnormal . % MET HB (test code 1.4 % 0.4-1.5 = %MET HB) CAO2 (test code = 17.7 VOL% 15.7-21.6 CAO2) PF/RATIO (test code 174.0 = PF/RATIO) ANTICOAG?: NA LAST DOSE?:BLOOD GAS [id number] 09:30:00 Test Item Value Reference Range Interpretation Comments SITE (test code = ARTLINE See_Comment [Automate d message] SITE) The [employer] generated this result transmitted ref erence range: -SITE. T he reference range was not used to interpr et this result as normal/abnormal . ALLENS (test code = N/A ALLENS) O2 EQUIP (test code VENT O2-DEVICE = O2 EQUIP) FIO2 (test code = 50 % FIO2) A/C (test code = 16 A/C) PT. RR (test code = 16 TOTAL PT. RR) PEEP (test code = 7 PEEP) VT (test code = VT) 500 VMIN (test code = 8.14 VMIN) PH (test code = 7.45 7.35-7.45 BGPH) PCO2 (test code = 50 MMHG 34.0-45.0 H PCO2) PO2 (test code = 92 MMHG 79-87 H PO2) HCO3 (test code = 34.8 mmol/L 22.0-26.0 H HCO3) BE (test code = BE) 9.3 mmol/L -2.0-2.0 H THB (test code = 12.4 G/DL 12-16 THB) % 02 HB (test code 96.3 % 96.0-100.0 = ABGSAT) %COHB (test code = 1.5 % See_Comment [Automat ed message] BGCO) The system [employer] generated this result transmitted ref erence range: -1.5. Th e reference range was not used to interpr et this result as normal/abnormal . % MET HB (test code 1.0 % 0.4-1.5 = %MET HB) CAO2 (test code = 16.9 VOL% 15.7-21.6 CAO2) PF/RATIO (test code 184.0 = PF/RATIO) ANTICOAG?: LAST DOSE?:WHOLE BLOOD [id number] 08:45:00 Test Item Value Reference Range Interpretation Comments WHOLE BLOOD GLUCOSE 111 MG/DL 70-99 H Fastin g glucose (test code = POC GLU) normal <100 MG/DL- [employer] [place] recommend ation CHEST 1 VIEW [id number] 07:26:00 [facility] : 1950 Sex: F[address] [address]CJSQYERGLU IMAGING REPORTPatient Name: ANGY COLLAZODate of Service: [id number]: 70 Sex: F Order #: [id number] Room: [facility] A 2SDOB: 1950 X-Ray Number: [id number] Record Number: [id number] Hospital Number: [id number] Physician: Jaswinder SHABAZZ Physician: Armando RUGGIERO one view 07/13/2020History: Covid 19 infection, pneumonia, intubationComparison: The prior dayTECHNIQUE: Semierect AP portable chest x-rayFINDINGS:Support devices are unchanged.Cardiac, hilar, andmediastinal structures are stable. Lungs still showincreased interstitial markings and scattered airspace opacities which areprobably due to pneumonia. No new bony or soft tissue abnormalities areidenti fied.Impression:No improvement.Electronically Signed By: Yeison Srivastava M.D., 07/13/2020 7:24 AMLegally authenticated by LINO PETE 2020-07-13 07:24:16BLOOD GAS [id number] 06:25:00 Test Item Value Reference Range Interpretation Comments SITE (test code = ARTHUR See_Comment [Automate d message] SITE) The system [employer] generated this result transmitted ref erence range: -SITE. T he reference range was not used to interpr et this result as normal/abnormal . ALLENS (test code = NA ALLENS) O2 EQUIP (test code VENT O2-DEVICE = O2 EQUIP) FIO2 (test code = 50 % FIO2) A/C (test code = 16 A/C) PT. RR (test code = 16 PT. RR) PEEP (test code = 8 PEEP) VT (test code = VT) 500 PIP (test code = 25 PIP) VMIN (test code = 8.18 VMIN) PH (test code = 7.42 7.35-7.45 BGPH) PCO2 (test code = 53 MMHG 34.0-45.0 H PCO2) PO2 (test code = 115 MMHG 79-87 H PO2) HCO3 (test code = 34.4 mmol/L 22.0-26.0 H HCO3) BE (test code = BE) 8.4 mmol/L -2.0-2.0 H THB (test code = 11.8 G/DL 12-16 L THB) % 02 HB (test code 96.7 % 96.0-100.0 = ABGSAT) %COHB (test code = 1.7 % See_Comment H [Automat ed message] BGCO) The system [employer] generated this result transmitted ref erence range: -1.5. Th e reference range was not used to interpr et this result as normal/abnormal . % MET HB (test code 0.9 % 0.4-1.5 = %MET HB) CAO2 (test code = 16.2 VOL% 15.7-21.6 CAO2) PF/RATIO (test code 230.0 = PF/RATIO) ANTICOAG?: LAST DOSE?:WHOLE BLOOD [id number] 06:10:00 Test Item Value Reference Range Interpretation Comments WHOLE BLOOD GLUCOSE 113 MG/DL 70-99 H Fastin g glucose (test code = POC GLU) normal <100 MG/DL- [employer] [place] [employer] recommend ation [id number] 04:40:00 Test Item Value Reference Range Interpretation Comments MG (test code = MG) 2.1 mg/dL 1.6-2.3 [id number] 04:31:00 Test Item Value Reference Range Interpretation Comments WBC (test code = 9.6 K/UL 3.5-10.9 WBC) RBC (test code = 3.93 M/UL 4.0-5.0 L RBC) HGB (test code = 11.5 G/DL 11.5-15.5 HGB) HCT (test code = 36.6 % 34-46 HCT) MCV (test code = 93.1 FL 80-98 MCV) MCH (test code = 29.3 PG 28-32 MCH) MCHC (test code = 31.4 G/DL 32.5-36.5 L MCHC) RDW (test code = 15.8 % 11.5-14.5 H RDW) PLT (test code = 164 K/UL 150-450 PLT) MPV (test code = 13.6 FL 7.4-10.4 H MPV) MANDIFF (test code = NO MANDIFF) SCAN (test code = NO SCAN) NEUT% (test code = 74.4 % 40-75 NEUT%) LYMPH% (test code = 13.3 % 24-44 L LYMPH%) MONO% (test code = 8.8 % 0-13 MONO%) EOS% (test code = 0.3 % 0-4 EOS%) BASO % (test code = 0.1 % 0-2 BASO%) IG (test code = IG) 0 % 0-1 IG% (test code = 3.1 % 0-1 H IG% = Metam yelocytes, IG%) Myelocytes, and Promyelocytes. (Immature neutr ophils not including " bands".) > 3% IG indic ates risk of sepsis NRBC% (test code = 0 /100 WBC NRBC%) ABS NEUT (test code 7.1 K/UL 1.2-7.2 = NEUT) [id number] 03:36:00 Test Item Value Reference Range Interpretation Comments SODIUM (test code 145 MMOL/L 137-145 = NA) K+ (test code = 4.0 MMOL/L 3.5-5.1 KSERUM) CHLORIDE (test 106 MMOL/L 98-107 code = CL) CO2 (test code = 33 MMOL/L 22-30 H CO2) BUN (test code = 62 MG/DL 7-17 H BUN) CREA (test code = 1.3 MG/DL 0.7-1.2 H CREA) GLUCOSE (test code 116 MG/DL 70-99 H Fasting glucose = GLUCOSE) normal <100 MG/ DL- [employer] [place] [employer] recommendation* * CALCIUM (test code 8.3 MG/DL 8.4-10.2 L = CABLOOD) TOTPROT (test code 5.4 G/DL 6.3-8.2 L = TOTPROT) ALBUMIN (test code 3.0 G/DL 3.5-5.0 L = ALBSERUM) BILITOT (test code 0.7 MG/DL 0.2-1.3 = BILITOT) AST (test code = 43 U/L 15-46 AST) PHOSALK (test code 68 U/L 38-126 = PHOSALK) ALTV (test code = 51 U/L 13-69 ALTV) GFR (test code = 43 A GFR of >9 0 GFR) mL/min/1.73m2 mL/min/1.73m2 is considered norm al. The GFR calcula tion on patients ove r 70 years of age is not validated by e production material handler an d may not represent t he patients true r enal function. BLOOD GAS [id number] 02:57:00 Test Item Value Reference Range Interpretation Comments SITE (test code = ARTHUR See_Comment [Automate d message] SITE) The system [employer] generated this result transmitted ref erence range: -SITE. T he reference range was not used to interpr et this result as normal/abnormal . ALLENS (test code = NA ALLENS) O2 EQUIP (test code VENT O2-DEVICE = O2 EQUIP) FIO2 (test code = 50 % FIO2) A/C (test code = 16 A/C) PT. RR (test code = 16 PT. RR) PEEP (test code = 10 PEEP) VT (test code = VT) 500 PIP (test code = 29 PIP) VMIN (test code = 7.83 VMIN) PH (test code = 7.41 7.35-7.45 BGPH) PCO2 (test code = 51 MMHG 34.0-45.0 H PCO2) PO2 (test code = 112 MMHG 79-87 H PO2) HCO3 (test code = 32.3 mmol/L 22.0-26.0 H HCO3) BE (test code = BE) 6.5 mmol/L -2.0-2.0 H THB (test code = 11.7 G/DL 12-16 L THB) % 02 HB (test code 96.8 % 96.0-100.0 = ABGSAT) %COHB (test code = 1.6 % See_Comment H [Automat ed message] BGCO) The system [employer] generated this result transmitted ref erence range: -1.5. Th e reference range was not used to interpr et this result as normal/abnormal . % MET HB (test code 0.9 % 0.4-1.5 = %MET HB) CAO2 (test code = 16.1 VOL% 15.7-21.6 CAO2) PF/RATIO (test code 224.0 = PF/RATIO) ANTICOAG?: LAST DOSE?:WHOLE BLOOD [id number] 00:35:00 Test Item Value Reference Range Interpretation Comments WHOLE BLOOD GLUCOSE 159 MG/DL 70-99 Fastin g glucose (test code = POC GLU) normal <100 MG/DL- [place] recommend ation WHOLE BLOOD [id number] 00:35:00 Test Item Value Reference Range Interpretation Comments WHOLE BLOOD GLUCOSE 175 MG/DL 70-99 H Fastin g glucose (test code = POC GLU) normal <100 MG/DL- [place] [employer] recommend ation WHOLE BLOOD [id number] 18:15:00 Test Item Value Reference Range Interpretation Comments WHOLE BLOOD GLUCOSE 196 MG/DL 70-99 H Fastin g glucose (test code = POC GLU) normal <100 MG/DL- [place] recommend ation WHOLE BLOOD [id number] 16:30:00 Test Item Value Reference Range Interpretation Comments WHOLE BLOOD GLUCOSE 166 MG/DL 70-99 H Fastin g glucose (test code = POC GLU) normal <100 MG/DL- [employer] [place] [employer] recommend ation WHOLE BLOOD [id number] 16:30:00 Test Item Value Reference Range Interpretation Comments WHOLE BLOOD GLUCOSE 173 MG/DL 70-99 H Fastin g glucose (test code = POC GLU) normal <100 MG/DL- [employer] [place] [employer] recommend ation WHOLE BLOOD [id number] 16:30:00 Test Item Value Reference Range Interpretation Comments WHOLE BLOOD GLUCOSE 203 MG/DL 70-99 H Fastin g glucose (test code = POC GLU) normal <100 MG/DL- [employer] [place] [employer] recommend ation WHOLE BLOOD [id number] 16:30:00 Test Item Value Reference Range Interpretation Comments WHOLE BLOOD GLUCOSE 179 MG/DL 70-99 H Fastin g glucose (test code = POC GLU) normal <100 MG/DL- [employer] [place] [employer] recommend ation WHOLE BLOOD [id number] 16:30:00 Test Item Value Reference Range Interpretation Comments WHOLE BLOOD GLUCOSE 210 MG/DL 70-99 H Fastin g glucose (test code = POC GLU) normal <100 MG/DL- [employer] [place] [employer] recommend ation [id number] 14:09:00 Test Item Value Reference Range Interpretation Comments MG (test code = MG) 2.0 mg/dL 1.6-2.3 ECHO 2D [id number] 13:11:00 [facility] : 1950 [facility] REPORTName: ANGY COLLAZO Study Date: 07/11/2020 11:29 AMMRN: [id number] Patient Location: 2S\\S\\208\\S\\AHR: 110DOB: 1950 (M/d/yyyy) Gender: FemaleAge: 70 yrsHeight: 60 in Weight: 235 lbBSA: 2.0 r1Ckmpfg For Study: COVID-19, Pneumonia, Eval. EFProceduresA two-dimensional limited transthoracic echocardiogram was performed. TDSdue to lung interfere nce.MMode/2D Measurements & CalculationsIVSd: 1.1 cm LVIDd: 4.1 cmIVSs: 1.4 cm LVIDs: 2.8 cmLVPWd: 1.2 cmLVPWs: 1.6 cm FS: 32.0 % % IVS thick: 21.9 %EDV(Teich): 73.8 mlESV(Teich): 29.0 mlEF(Teich): 60.7 % SV(Teich): 44.8 ml EDV(MOD-sp4): 64.7 mlESV(MOD-sp4): 28.4 mlEF(MOD-sp4): 56.1 % SV(MOD-sp4): 36.3 mlDoppler Measurements & CalculationsTR max juan: 216.7 cm/sec RAP systole: 10.0 mmHgTR max P.8 mmHgRVSP(TR): 28.8 mmHgInterpretation SummaryLimited views were obtained. The study was technically limited.The studywas technically difficult. Grossly normal LV systolic function with EF 55- 60%RV normal sizeand functionTrivial TRIVC not well visualized Reading Physician: Electronically signed Edna Sutton 07/12/2020y: 01:12 PMOrdering Physician: Courtney Physician: DEIDRA [id number] 12:16:00 Test Item Value Reference Range Interpretation Comments K+ (test code = KSERUM) 4.0 MMOL/L 3.5-5.1 WHOLE BLOOD [id number] 09:40:00 Test Item Value Reference Range Interpretation Comments WHOLE BLOOD GLUCOSE 175 MG/DL 70-99 H Fastin g glucose (test code = POC GLU) normal <100 MG/DL- [employer] [place] [employer] recommend ation CHEST 1 VIEW [id number] 07:13:00 [facility] DOB: 1950 [facility] [place], [place] [address]LQWWGXKEMD IMAGING REPORTPatient Name: ANGY COLLAZODate of Service: [id number]: 70 Sex: F Order #: [id number] Room: [facility] 2SDOB: 1950 X-Ray Number: [id number] Record Number: [id number] Hospital Number: [id number] Physician: Jaswinder SHABAZZ Physician: Armando RUGGIERO one view 07/12/2020History: Covid 19 infection, pneumonia, intubationComparison: The prior dayTECHNIQUE: Semierect AP portable chest x-rayFINDINGS:Support devices are unchanged.Cardiac, hilar, andmediastinal structures are stable. Lungs still showincreased interstitial markings and scattered airspace opacities which areprobably due to pneumonia. No new bony or soft tissue abnormalities areidenti fied.Impression:No improvement.Electronically Signed By: Yeison Srivastava M.D., 07/12/2020 7:10 AMLegally authenticated by LINO PETE 2020-07-12 07:10:53BLOOD [id number] 06:34:00 Test Item Value Reference Range Interpretation Comments Report Text (test [facility] 2020-07-072131 code = Report Text) Report Text7 (test BLOOD CULTURES HELD FOR code = Report 5 DAYS BEFORE FINAL Text7) Report Text8 (test code = Report Text8) Report Text9 (test [employer] code = Report MICROBIOLOGY SUGGESTS THAT Text9) Report Text10 (test MOST CASES OF BACTEREMIA code = Report ARE DETECTED BY USING Text10) Report Text11 (test THREE SETS OF SEPARATELY code = Report COLLECTED BLOOD CULTURES. Text11) Report Text12 (test [facility] 2020-07-072132 code = Report Text12) Report Text13 (test CONVERSELY, A SINGLE BLOOD code = Report CULTURE MAY MISS Text13) Report Text14 (test INTERMITTENTLY OCCURRING code = Report BACTEREMIA AND MAKE Text14) Report Text15 (test IT DIFFICULT TO INTERPRET code = Report THE CLINICAL Text15) Report Text16 (test SIGNIFICANCE OF CERTAIN code = Report ISOLATED ORGANISMS. Text16) Report Text17 (test code = Report Text17) Report Text18 (test [facility] 2020-07-072133 code = Report Text18) Report Text19 (test DRAWN FROM code = Report CENTRAL LINE Text19) Report Text20 (test code = Report Text20) Report Text21 (test 2020-07-08 704 code = Report Text21) Report Text22 (test NO GROWTH WITHIN 1 DAY code = Report Text22) Report Text23 (test PRELIMINARY REPORT code = Report Text23) Report Text24 (test code = Report Text24) Report Text25 (test RENAE 2020-07-09 835 code = Report Text25) Report Text26 (test NO GROWTH WITHIN 2 DAYS code = Report Text26) Report Text27 (test PRELIMINARY REPORT code = Report Text27) Report Text28 (test code = Report Text28) Report Text29 (test 2020-07-12 634 code = Report Text29) Report Text30 (test NO GROWTH WITHIN 5 DAYS code = Report Text30) Report Text31 (test FINAL REPORT code = Report Text31) BLOOD [id number] 06:34:00 Test Item Value Reference Range Interpretation Comments Report Text (test [facility] 2020-07-072130 code = Report Text) Report Text7 (test BLOOD CULTURES HELD FOR code = Report 5 DAYS BEFORE FINAL Text7) Report Text8 (test code = Report Text8) Report Text9 (test [employer] code = Report MICROBIOLOGY SUGGESTS THAT Text9) Report Text10 (test MOST CASES OF BACTEREMIA code = Report ARE DETECTED BY USING Text10) Report Text11 (test THREE SETS OF SEPARATELY code = Report COLLECTED BLOOD CULTURES. Text11) Report Text12 (test [facility] 2020-07-072131 code = Report Text12) Report Text13 (test CONVERSELY, A SINGLE BLOOD code = Report CULTURE MAY MISS Text13) Report Text14 (test INTERMITTENTLY OCCURRING code = Report BACTEREMIA AND MAKE Text14) Report Text15 (test IT DIFFICULT TO INTERPRET code = Report THE CLINICAL Text15) Report Text16 (test SIGNIFICANCE OF CERTAIN code = Report ISOLATED ORGANISMS. Text16) Report Text17 (test code = Report Text17) Report Text18 (test [facility] 2020-07-072132 code = Report Text18) Report Text19 (test DRAWN FROM code = Report CENTRAL LINE Text19) Report Text20 (test code = Report Text20) Report Text21 (test 2020-07-08 704 code = Report Text21) Report Text22 (test NO GROWTH WITHIN 1 DAY code = Report Text22) Report Text23 (test PRELIMINARY REPORT code = Report Text23) Report Text24 (test code = Report Text24) Report Text25 (test CAT 2020-07-09 835 code = Report Text25) Report Text26 (test NO GROWTH WITHIN 2 DAYS code = Report Text26) Report Text27 (test PRELIMINARY REPORT code = Report Text27) Report Text28 (test code = Report Text28) Report Text29 (test JM 2020-07-12 634 code = Report Text29) Report Text30 (test NO GROWTH WITHIN 5 DAYS code = Report Text30) Report Text31 (test FINAL REPORT code = Report Text31) [id number] 05:20:00 Test Item Value Reference Range Interpretation Comments MG (test code = MG) 1.9 mg/dL 1.6-2.3 BLOOD GAS [id number] 03:57:00 Test Item Value Reference Range Interpretation Comments SITE (test code = ARTLINE See_Comment [Automate d message] SITE) The system [employer] generated this result transmitted ref erence range: -SITE. T he reference range was not used to interpr et this result as normal/abnormal . ALLENS (test code = NA ALLENS) O2 EQUIP (test code 980 O2-DEVICE = O2 EQUIP) FIO2 (test code = 50 % FIO2) A/C (test code = 20 A/C) PT. RR (test code = 20 PT. RR) PEEP (test code = 10 PEEP) VT (test code = VT) 500 VMIN (test code = 15.7 VMIN) PH (test code = 7.53 7.35-7.45 H BGPH) PCO2 (test code = 35 MMHG 34.0-45.0 PCO2) PO2 (test code = 78 MMHG 79-87 L PO2) HCO3 (test code = 29.2 mmol/L 22.0-26.0 H HCO3) BE (test code = BE) 6.4 mmol/L -2.0-2.0 H THB (test code = 12.3 G/DL 12-16 THB) % 02 HB (test code 95.0 % 96.0-100.0 L = ABGSAT) %COHB (test code = 1.7 % See_Comment H [Automat ed message] BGCO) The system [employer] generated this result transmitted ref erence range: -1.5. Th e reference range was not used to interpr et this result as normal/abnormal . % MET HB (test code 1.2 % 0.4-1.5 = %MET HB) CAO2 (test code = 16.5 VOL% 15.7-21.6 CAO2) PF/RATIO (test code 156.0 = PF/RATIO) ANTICOAG?: LAST DOSE?:[id number] 03:04:00 Test Item Value Reference Range Interpretation Comments SODIUM (test code 145 MMOL/L 137-145 = NA) K+ (test code = 3.4 MMOL/L 3.5-5.1 L KSERUM) CHLORIDE (test 107 MMOL/L 98-107 code = CL) CO2 (test code = 29 MMOL/L 22-30 CO2) BUN (test code = 46 MG/DL 7-17 H BUN) CREA (test code = 1.0 MG/DL 0.7-1.2 CREA) GLUCOSE (test code 210 MG/DL 70-99 H Fasting glucose = GLUCOSE) normal <100 MG/ DL- [employer] [place] [employer] recommendation* * CALCIUM (test code 8.6 MG/DL 8.4-10.2 = CABLOOD) TOTPROT (test code 5.7 G/DL 6.3-8.2 L = TOTPROT) ALBUMIN (test code 3.3 G/DL 3.5-5.0 L = ALBSERUM) BILITOT (test code 0.9 MG/DL 0.2-1.3 = BILITOT) AST (test code = 47 U/L 15-46 H AST) PHOSALK (test code 69 U/L 38-126 = PHOSALK) ALTV (test code = 57 U/L 13-69 ALTV) GFR (test code = 59 A GFR of >9 0 GFR) mL/min/1.73m2 mL/min/1.73m2 is considered norm al. The GFR calcula tion on patients ove r 70 years of age is not validated by e production material handler an d may not represent t he patients true r enal function. [id number] 02:51:00 Test Item Value Reference Range Interpretation Comments WBC (test code = 7.1 K/UL 3.5-10.9 WBC) RBC (test code = 4.10 M/UL 4.0-5.0 RBC) HGB (test code = 12.0 G/DL 11.5-15.5 HGB) HCT (test code = 36.6 % 34-46 HCT) MCV (test code = 89.3 FL 80-98 MCV) MCH (test code = 29.3 PG 28-32 MCH) MCHC (test code = 32.8 G/DL 32.5-36.5 MCHC) RDW (test code = 14.9 % 11.5-14.5 H RDW) PLT (test code = 177 K/UL 150-450 PLT) MPV (test code = 12.9 FL 7.4-10.4 H MPV) MANDIFF (test code = NO MANDIFF) SCAN (test code = NO SCAN) NEUT% (test code = 80.4 % 40-75 H NEUT%) LYMPH% (test code = 8.6 % 24-44 L LYMPH%) MONO% (test code = 7.2 % 0-13 MONO%) EOS% (test code = 0.0 % 0-4 EOS%) BASO % (test code = 0.3 % 0-2 BASO%) IG (test code = IG) 0 % 0-1 IG% (test code = 3.5 % 0-1 H IG% = Metam yelocytes, IG%) Myelocytes, and Promyelocytes. (Immature neutr ophils not including " bands".) > 3% IG indic ates risk of sepsis NRBC% (test code = 0 /100 WBC NRBC%) ABS NEUT (test code 5.7 K/UL 1.2-7.2 = NEUT) WHOLE BLOOD [id number] 22:25:00 Test Item Value Reference Range Interpretation Comments WHOLE BLOOD GLUCOSE 178 MG/DL 70-99 H Fastin g glucose (test code = POC GLU) normal <100 MG/DL- [employer] [place] [employer] recommend ation [id number] 21:14:00 [facility] : 1950 Sex: FHEART RATE: 159 bpmRR Interval: 377 msAtrial Rate: 174 msP-R Interval: msP Duration: 0 msP Horizontal Olivet: degP Front [place]et: degQ Onset: 502 msQRSD Interval: 89 msQT Interval:294 msQTcB: 479 msQTcF: 407 msQRS Horizontal [place]et: -23 degQRS Olivet: -13 degI-40 Horizontal [place]: -8 degI-40 Front [place]et: 30 degT-40 Horizontal [place]: -30 degT-40 Front [place]: -23 degT Horizontal [place]: 47 degT Wave [place]: 121 degS-T Horizontal [place]: 185 degS-T Front [place]: 193 degECG Severity: - ABNORMAL ECG -ECG Impression: Atrial fibrillation with rapid V-rateECG Impression: Low voltage, precordial leadsECG Impression: Probable LVH with secondary repol abnrmECG Impression: Repolarization changes could also be due to ischemia or digitalis effectWHOLE BLOOD [id number] 16:05:00 Test Item Value Reference Range Interpretation Comments WHOLE BLOOD GLUCOSE 182 MG/DL 70-99 H Fastin g glucose (test code = POC GLU) normal <100 MG/DL- [employer] [place] [employer] [facility] recommend ation WHOLE BLOOD [id number] 11:30:00 Test Item Value Reference Range Interpretation Comments WHOLE BLOOD GLUCOSE 200 MG/DL 70-99 H Fastin g glucose (test code = POC GLU) normal <100 MG/DL- [employer] [place] [employer] [facility] recommend ation CHEST 1 VIEW [id number] 07:03:00 [facility] : 1950 Sex: F[address] [id number] IMAGING REPORTPatient Name: ANGY COLLAZODate of Service: [id number]: 70 Sex: F Order #: [id number] Room: [facility] 2SDOB: 1950 X-Ray Number: [id number] Record Number: [id number] Hospital Number: [id number] Physician: Jaswinder SHABAZZ Physician: Armando RUGGIERO one view 07/11/2020History: Covid 19 infection, pneumonia, intubationComparison: The prior dayTECHNIQUE: Semierect AP portable chest x-rayFINDINGS:Support devices are unchanged.Cardiac, hilar, andmediastinal structures are stable. Lungs still showincreased interstitial markings and scattered airspace opacities which areprobably due to pneumonia. No new bony or soft tissue abnormalities areidenti fied.Impression:No improvement.Electronically Signed By: Yeison Srivastava M.D., 07/11/2020 7:00 AMLegally authenticated by LINO PETE 2020-07-11 07:00:35GIVE 1 UNIT [facility] [id number] 06:40:00 Test Item Value Reference Range Interpretation Comments GIVE 1 UNIT [facility] FFP (test ISSUED code = CFFP) GIVE 1 UNIT [facility] [id number] 06:40:00 Test Item Value Reference Range Interpretation Comments GIVE 1 UNIT [facility] FFP (test ISSUED code = CFFP) THYROID STIMULATION [id number] 04:25:00 Test Item Value Reference Range Interpretation Comments TSH (test code = TSH) 0.08 UIU/ML 0.465-4.68 L FREE [id number] 04:25:00 Test Item Value Reference Range Interpretation Comments FT4 (test code = FT4) 1.45 ng/dL 0.78-2.19 [id number] 04:25:00 Test Item Value Reference Range Interpretation Comments WBC (test code = 7.3 K/UL 3.5-10.9 WBC) RBC (test code = 3.63 M/UL 4.0-5.0 L RBC) HGB (test code = 10.5 G/DL 11.5-15.5 L HGB) HCT (test code = 34.0 % 34-46 HCT) MCV (test code = 93.7 FL 80-98 MCV) MCH (test code = 28.9 PG 28-32 MCH) MCHC (test code = 30.9 G/DL 32.5-36.5 L MCHC) RDW (test code = 15.6 % 11.5-14.5 H RDW) PLT (test code = 151 K/UL 150-450 PLT) MPV (test code = 13.0 FL 7.4-10.4 H MPV) MANDIFF (test code = NO MANDIFF) SCAN (test code = NO SCAN) NEUT% (test code = 84.3 % 40-75 H NEUT%) LYMPH% (test code = 5.3 % 24-44 L LYMPH%) MONO% (test code = 7.4 % 0-13 MONO%) EOS% (test code = 0.0 % 0-4 EOS%) BASO % (test code = 0.3 % 0-2 BASO%) IG (test code = IG) 0 % 0-1 IG% (test code = 2.7 % 0-1 H IG% = Metam yelocytes, IG%) Myelocytes, and Promyelocytes. (Immature neutr ophils not including " bands".) > 3% IG indic ates risk of sepsis NRBC% (test code = 0 /100 WBC NRBC%) ABS NEUT (test code 6.2 K/UL 1.2-7.2 = NEUT) FREE [id number] 04:25:00 Test Item Value Reference Range Interpretation Comments FREE T3 (test code = T3FREE) 1.88 pg/mL 2.77-5.27 L [id number] 04:08:00 Test Item Value Reference Range Interpretation Comments SODIUM (test code 146 MMOL/L 137-145 H = NA) K+ (test code = 3.6 MMOL/L 3.5-5.1 KSERUM) CHLORIDE (test 110 MMOL/L 98-107 H code = CL) CO2 (test code = 24 MMOL/L 22-30 CO2) BUN (test code = 48 MG/DL 7-17 H BUN) CREA (test code = 1.1 MG/DL 0.7-1.2 CREA) GLUCOSE (test code 282 MG/DL 70-99 H Fasting glucose = GLUCOSE) normal <100 MG/ DL- [employer] [place] [employer] recommendation* * CALCIUM (test code 8.3 MG/DL 8.4-10.2 L = CABLOOD) TOTPROT (test code 5.9 G/DL 6.3-8.2 L = TOTPROT) ALBUMIN (test code 3.5 G/DL 3.5-5.0 = ALBSERUM) BILITOT (test code 0.7 MG/DL 0.2-1.3 = BILITOT) AST (test code = 59 U/L 15-46 H AST) PHOSALK (test code 67 U/L 38-126 = PHOSALK) ALTV (test code = 54 U/L 13-69 ALTV) GFR (test code = 52 A GFR of >9 0 GFR) mL/min/1.73m2 mL/min/1.73m2 is considered norm al. The GFR calcula tion on patients ove r 70 years of age is not validated by e production material handler an d may not represent t he patients true r enal function. [id number] 03:59:00 Test Item Value Reference Range Interpretation Comments MG (test code = MG) 2.1 mg/dL 1.6-2.3 [id number] 03:59:00 Test Item Value Reference Range Interpretation Comments PHOSPHOR (test code = PHOSPHOR) 4.1 MG/DL 2.5-4.5 BLOOD GAS [id number] 03:06:00 Test Item Value Reference Range Interpretation Comments SITE (test code = ARTHUR See_Comment [Automate d message] SITE) The system [employer] generated this result transmitted ref erence range: -SITE. T he reference range was not used to interpr et this result as normal/abnormal . ALLENS (test code = N/A ALLENS) O2 EQUIP (test code 980 O2-DEVICE = O2 EQUIP) FIO2 (test code = 60 % FIO2) A/C (test code = 24 A/C) PT. RR (test code = 24 PT. RR) PEEP (test code = 12 PEEP) VT (test code = VT) 450 VMIN (test code = 10.9 VMIN) PH (test code = 7.31 7.35-7.45 L BGPH) PCO2 (test code = 48 MMHG 34.0-45.0 H PCO2) PO2 (test code = 96 MMHG 79-87 H PO2) HCO3 (test code = 24.2 mmol/L 22.0-26.0 HCO3) BE (test code = BE) -2.2 mmol/L -2.0-2.0 L THB (test code = 10.4 G/DL 12-16 L THB) % 02 HB (test code 96.2 % 96.0-100.0 = ABGSAT) %COHB (test code = 1.7 % See_Comment H [Automat ed message] BGCO) The system [employer] generated this result transmitted ref erence range: -1.5. Th e reference range was not used to interpr et this result as normal/abnormal . % MET HB (test code 0.9 % 0.4-1.5 = %MET HB) CAO2 (test code = 14.2 VOL% 15.7-21.6 L CAO2) PF/RATIO (test code 160.0 = PF/RATIO) ANTICOAG?: LAST DOSE?:[id number] 22:47:00 Test Item Value Reference Range Interpretation Comments MG (test code = MG) 2.2 mg/dL 1.6-2.3 [id number] 22:46:00 Test Item Value Reference Range Interpretation Comments K+ (test code = KSERUM) 4.2 MMOL/L 3.5-5.1 WHOLE BLOOD [id number] 17:40:00 Test Item Value Reference Range Interpretation Comments WHOLE BLOOD GLUCOSE 211 MG/DL 70-99 H Fastin g glucose (test code = POC GLU) normal <100 MG/DL- [employer] [place] recommend ation CULTURE, [id number] 13:00:00 Test Item Value Reference Range Interpretation Comments Report Text (test DMB 2020-07-09 1435 code = Report Text) Report Text7 (test NO GROWTH WITHIN 24 HOURS code = Report Text7) Report Text8 (test PRELIMINARY REPORT code = Report Text8) Report Text9 (test code = Report Text9) Report Text10 (test DMB 2020-07-10 1300 code = Report Text10) Report Text11 (test NO GROWTH WITHIN 48 HOURS code = Report Text11) Report Text12 (test FINAL REPORT code = Report Text12) CULTURE, [id number] 12:57:00 Test Item Value Reference Range Interpretation Comments Report Text (test DMB 2020-07-09 1439 code = Report Text) Report Text7 (test NO GROWTH WITHIN 24 HOURS code = Report Text7) Report Text8 (test PRELIMINARY REPORT code = Report Text8) Report Text9 (test code = Report Text9) Report Text10 (test DMB 2020-07-10 1257 code = Report Text10) Report Text11 (test NO GROWTH WITHIN 48 HOURS code = Report Text11) Report Text12 (test FINAL REPORT code = Report Text12) WHOLE BLOOD [id number] 12:50:00 Test Item Value Reference Range Interpretation Comments WHOLE BLOOD GLUCOSE 222 MG/DL 70-99 H Fastin g glucose (test code = POC GLU) normal <100 MG/DL- [employer] [place] [employer] recommend ation [id number] 11:41:00 Test Item Value Reference Range Interpretation Comments K+ (test code = KSERUM) 3.4 MMOL/L 3.5-5.1 L [id number] 11:41:00 Test Item Value Reference Range Interpretation Comments MG (test code = MG) 2.2 mg/dL 1.6-2.3 WHOLE BLOOD [id number] 11:25:00 Test Item Value Reference Range Interpretation Comments WHOLE BLOOD GLUCOSE 188 MG/DL 70-99 H Fastin g glucose (test code = POC GLU) normal <100 MG/DL- [employer] [place] [employer] recommend ation WHOLE BLOOD [id number] 07:50:00 Test Item Value Reference Range Interpretation Comments WHOLE BLOOD GLUCOSE 83 MG/DL 70-99 Fastin g glucose (test code = POC GLU) normal <100 MG/DL- [employer] [place] recommendation* * WHOLE BLOOD [id number] 07:50:00 Test Item Value Reference Range Interpretation Comments WHOLE BLOOD GLUCOSE 170 MG/DL 70-99 H Fastin g glucose (test code = POC GLU) normal <100 MG/DL- [employer] [place] recommend ation CHEST 1 VIEW [id number] 07:30:00 [facility] : 1950 Sex: F[address] [id number] IMAGING REPORTPatient Name: ANGY COLLAZODate of Service: [id number]: 70 Sex: F Order #: [id number] Room: [facility] A 2SDOB: 1950 X-Ray Number: [id number] Record Number: [id number] Hospital Number: [id number] Physician: Jaswinder SHABAZZ Physician: Marianela RUGGIEROest:07/10/2020 3:56 AMHistory: Respiratory failure.Technique: Single AP chest projection.Comparison: July 09, 2020Findings:The heart size is normal. There are diffuse bilateral interstitial lunginfiltrates which appear unchanged. The positioning of the endotracheal, NGtube, and right-sided centralvenous catheter are unchanged.Impression:No interval change or improvement.Electronically Signed By: Bhaskar Fletcher M.D., 07/10/2020 7:27 AMLegally authenticated by AYO Cheek 2020-07-10 07:27:43WHOLE BLOOD [id number] 05:50:00 Test Item Value Reference Range Interpretation Comments WHOLE BLOOD GLUCOSE 201 MG/DL 70-99 H Fastin g glucose (test code = POC GLU) normal <100 MG/DL- [employer] [place] recommend ation [id number] 04:23:00 Test Item Value Reference Range Interpretation Comments FERRITIN (test code = FERR) 633 NG/ML 11-264 H [id number] 03:44:00 Test Item Value Reference Range Interpretation Comments SODIUM (test code 145 MMOL/L 137-145 = NA) K+ (test code = 3.5 MMOL/L 3.5-5.1 KSERUM) CHLORIDE (test 111 MMOL/L 98-107 H code = CL) CO2 (test code = 25 MMOL/L 22-30 CO2) BUN (test code = 43 MG/DL 7-17 H BUN) CREA (test code = 1.2 MG/DL 0.7-1.2 CREA) GLUCOSE (test code 201 MG/DL 70-99 H Fasting glucose = GLUCOSE) normal <100 MG/ DL- [employer] [place] [employer] recommendation* * CALCIUM (test code 8.0 MG/DL 8.4-10.2 L = CABLOOD) TOTPROT (test code 5.4 G/DL 6.3-8.2 L = TOTPROT) ALBUMIN (test code 2.8 G/DL 3.5-5.0 L = ALBSERUM) BILITOT (test code 0.7 MG/DL 0.2-1.3 = BILITOT) AST (test code = 70 U/L 15-46 H AST) PHOSALK (test code 77 U/L 38-126 = PHOSALK) ALTV (test code = 55 U/L 13-69 ALTV) GFR (test code = 47 A GFR of >9 0 GFR) mL/min/1.73m2 mL/min/1.73m2 is considered norm al. The GFR calcula tion on patients ove r 70 years of age is not validated by e production material handler an d may not represent t he patients true r enal function. [id number] 03:44:00 Test Item Value Reference Range Interpretation Comments LDH (test code = LDH) 1180 U/L 313-618 H C-REACTIVE [id number] 03:44:00 Test Item Value Reference Range Interpretation Comments CRP (test code = CRP) 6.0 mg/dL 0.5-1.0 H [id number] 03:44:00 Test Item Value Reference Range Interpretation Comments WBC (test code = 6.8 K/UL 3.5-10.9 WBC) RBC (test code = 3.77 M/UL 4.0-5.0 L RBC) HGB (test code = 11.0 G/DL 11.5-15.5 L HGB) HCT (test code = 34.2 % 34-46 HCT) MCV (test code = 90.7 FL 80-98 MCV) MCH (test code = 29.2 PG 28-32 MCH) MCHC (test code = 32.2 G/DL 32.5-36.5 L MCHC) RDW (test code = 14.9 % 11.5-14.5 H RDW) PLT (test code = 160 K/UL 150-450 PLT) MPV (test code = 13.2 FL 7.4-10.4 H MPV) MANDIFF (test code = NO MANDIFF) SCAN (test code = NO SCAN) NEUT% (test code = 82.4 % 40-75 H NEUT%) LYMPH% (test code = 10.0 % 24-44 L LYMPH%) MONO% (test code = 5.4 % 0-13 MONO%) EOS% (test code = 0.0 % 0-4 EOS%) BASO % (test code = 0.1 % 0-2 BASO%) IG (test code = IG) 0 % 0-1 IG% (test code = 2.1 % 0-1 H IG% = Metam yelocytes, IG%) Myelocytes, and Promyelocytes. (Immature neutr ophils not including " bands".) > 3% IG indic ates risk of sepsis NRBC% (test code = 1 /100 WBC REPORTED WBC COUNT HAS NRBC%) BEEN CORRECTED FOR NRBC ABS NEUT (test code 5.6 K/UL 1.2-7.2 = NEUT) D-DIMER, [id number] 03:33:00 Test Item Value Reference Range Interpretation Comments D-DIMER (test 2342 ng/mL (FEU) 0-500 H VALUES OF QUANTITATIVE code = DDIMER) D-DIMER LESS THAN 499 ng/mL HAVE BEEN REPORTED TO BE ASSOCIATED WITH A LOW PROBABILITY OF DEEP VEIN THROMBOSIS/PULM ONARYEMB OLISM. THIS ERNESTO T ALONE SHOULD NOT BE U SED TO RULE OUT DVT/PE . BLOOD GAS [id number] 02:53:00 Test Item Value Reference Range Interpretation Comments SITE (test code = ARTHUR See_Comment [Automate d message] SITE) The system [employer] generated this result transmitted ref erence range: -SITE. T he reference range was not used to interpr et this result as normal/abnormal . ALLENS (test code = N/A ALLENS) O2 EQUIP (test code VENT O2-DEVICE = O2 EQUIP) FIO2 (test code = 80 % FIO2) A/C (test code = 32 A/C) PT. RR (test code = 32 PT. RR) PEEP (test code = 12 PEEP) VT (test code = VT) 450 PIP (test code = 36 PIP) VMIN (test code = 14.9 VMIN) PH (test code = 7.46 7.35-7.45 H BGPH) PCO2 (test code = 31 MMHG 34.0-45.0 L PCO2) PO2 (test code = 154 MMHG 79-87 H PO2) HCO3 (test code = 22.0 mmol/L 22.0-26.0 HCO3) BE (test code = BE) -1.2 mmol/L -2.0-2.0 THB (test code = 10.4 G/DL 12-16 L THB) % 02 HB (test code 97.5 % 96.0-100.0 = ABGSAT) %COHB (test code = 1.8 % See_Comment H [Automat ed message] BGCO) The system [employer] generated this result transmitted ref erence range: -1.5. Th e reference range was not used to interpr et this result as normal/abnormal . % MET HB (test code 1.1 % 0.4-1.5 = %MET HB) CAO2 (test code = 14.6 VOL% 15.7-21.6 L CAO2) PF/RATIO (test code 193.0 = PF/RATIO) ANTICOAG?: LAST DOSE?:WHOLE BLOOD [id number] 00:00:00 Test Item Value Reference Range Interpretation Comments WHOLE BLOOD GLUCOSE 236 MG/DL 70-99 H Fastin g glucose (test code = POC GLU) normal <100 MG/DL- [employer] [place] recommend ation WHOLE BLOOD [id number] 21:00:00 Test Item Value Reference Range Interpretation Comments WHOLE BLOOD GLUCOSE 220 MG/DL 70-99 H Fastin g glucose (test code = POC GLU) normal <100 MG/DL- [employer] [place] recommend ation WHOLE BLOOD [id number] 20:45:00 Test Item Value Reference Range Interpretation Comments WHOLE BLOOD GLUCOSE 185 MG/DL 70-99 Fastin g glucose (test code = POC GLU) normal <100 MG/DL- [employer] [place] [employer] recommend ation WHOLE BLOOD [id number] 12:10:00 Test Item Value Reference Range Interpretation Comments WHOLE BLOOD GLUCOSE 185 MG/DL 70-99 H Fastin g glucose (test code = POC GLU) normal <100 MG/DL- [employer] [place] recommend ation WHOLE BLOOD [id number] 12:10:00 Test Item Value Reference Range Interpretation Comments WHOLE BLOOD GLUCOSE 155 MG/DL 70-99 Fastin g glucose (test code = POC GLU) normal <100 MG/DL- [employer] [place] recommend ation WHOLE BLOOD [id number] 12:10:00 Test Item Value Reference Range Interpretation Comments WHOLE BLOOD GLUCOSE 160 MG/DL 70-99 Fastin g glucose (test code = POC GLU) normal <100 MG/DL- [employer] [place] recommend ation WHOLE BLOOD [id number] 09:10:00 Test Item Value Reference Range Interpretation Comments WHOLE BLOOD GLUCOSE 180 MG/DL 70-99 H Fastin g glucose (test code = POC GLU) normal <100 MG/DL- [employer] [place] [employer] recommend ation CHEST 1 VIEW [id number] 06:21:00 [facility] : 1950 Sex: F[address] [id number] IMAGING REPORTPatient Name: Kristan COLLAZO of Service: [id number]: 70 Sex: F Order #: [id number] Room: [facility] 2SDOB: 1950 X-Ray Number: [id number] Record Number: [id number] Hospital Number: [id number] Physician: Jaswinder SHABAZZ Physician: Shilo RUGGIERO Chest, 07/09/2020 5:12 AMHISTORY: f/u. Covid 19 pneumonia. Shortness of breath. Cough.COMPARISON: 07/08/2020TECHNIQUE: Portable chest 1 viewFINDINGS:The life- support devices are unchanged. The cardiac silhouette is stable.There are persistent interstitial infiltrates throughout the lungsbilaterally. There is no effusion or pneumothorax.IMPRESSION:Stable chest.Electronically Signed By: Wes Yen M.D., 07/09/2020 6:19 AMLegally authenticated by SCOT POLLOCK 2020-07-09 06:19:26WHOLE BLOOD [id number] 06:05:00 Test Item Value Reference Range Interpretation Comments WHOLE BLOOD GLUCOSE 170 MG/DL 70-99 Fastin g glucose (test code = POC GLU) normal <100 MG/DL- [employer] [place] [employer] recommend ation [id number] 05:20:00 Test Item Value Reference Range Interpretation Comments FERRITIN (test code = FERR) 975 NG/ML 11-264 H C-REACTIVE [id number] 05:07:00 Test Item Value Reference Range Interpretation Comments CRP (test code = CRP) 15.8 mg/dL 0.5-1.0 H [id number] 05:06:00 Test Item Value Reference Range Interpretation Comments SODIUM (test code 143 MMOL/L 137-145 = NA) K+ (test code = 3.8 MMOL/L 3.5-5.1 KSERUM) CHLORIDE (test 113 MMOL/L 98-107 H code = CL) CO2 (test code = 24 MMOL/L 22-30 CO2) BUN (test code = 41 MG/DL 7-17 H BUN) CREA (test code = 1.1 MG/DL 0.7-1.2 CREA) GLUCOSE (test code 184 MG/DL 70-99 H Fasting glucose = GLUCOSE) normal <100 MG/ DL- [employer] [place] recommendation* * CALCIUM (test code 8.0 MG/DL 8.4-10.2 L = CABLOOD) TOTPROT (test code 5.4 G/DL 6.3-8.2 L = TOTPROT) ALBUMIN (test code 2.9 G/DL 3.5-5.0 L = ALBSERUM) BILITOT (test code 0.7 MG/DL 0.2-1.3 = BILITOT) AST (test code = 97 U/L 15-46 H AST) PHOSALK (test code 66 U/L 38-126 = PHOSALK) ALTV (test code = 45 U/L 13-69 ALTV) GFR (test code = 52 A GFR of >9 0 GFR) mL/min/1.73m2 mL/min/1.73m2 is considered norm al. The GFR calcula tion on patients ove r 70 years of age is not validated by e production material handler an d may not represent t he patients true r enal function. D-DIMER, [id number] 05:03:00 Test Item Value Reference Range Interpretation Comments D-DIMER (test 2768 ng/mL (FEU) 0-500 H VALUES OF QUANTITATIVE code = DDIMER) D-DIMER LESS THAN 499 ng/mL HAVE BEEN REPORTED TO BE ASSOCIATED WITH A LOW PROBABILITY OF DEEP VEIN THROMBOSIS/PULM ONARYEMB OLISM. THIS ERNESTO T ALONE SHOULD NOT BE U SED TO RULE OUT DVT/PE . [id number] 04:35:00 Test Item Value Reference Range Interpretation Comments LDH (test code = LDH) 1561 U/L 313-618 H [id number] 04:29:00 Test Item Value Reference Range Interpretation Comments WBC (test code = 6.1 K/UL 3.5-10.9 WBC) RBC (test code = 3.71 M/UL 4.0-5.0 L RBC) HGB (test code = 10.6 G/DL 11.5-15.5 L HGB) HCT (test code = 33.2 % 34-46 L HCT) MCV (test code = 89.5 FL 80-98 MCV) MCH (test code = 28.6 PG 28-32 MCH) MCHC (test code = 31.9 G/DL 32.5-36.5 L MCHC) RDW (test code = 15.0 % 11.5-14.5 H RDW) PLT (test code = 125 K/UL 150-450 L PLT) MPV (test code = 13.3 FL 7.4-10.4 H MPV) MANDIFF (test code = NO MANDIFF) SCAN (test code = NO SCAN) NEUT% (test code = 82.4 % 40-75 H NEUT%) LYMPH% (test code = 10.7 % 24-44 L LYMPH%) MONO% (test code = 5.9 % 0-13 MONO%) EOS% (test code = 0.0 % 0-4 EOS%) BASO % (test code = 0.0 % 0-2 BASO%) IG (test code = IG) 0 % 0-1 IG% (test code = 1.0 % 0-1 IG% = Metam yelocytes, IG%) Myelocytes, and Promyelocytes. (Immature neutr ophils not including " bands".) > 3% IG indic ates risk of sepsis NRBC% (test code = 0 /100 WBC NRBC%) ABS NEUT (test code 5.0 K/UL 1.2-7.2 = NEUT) BLOOD GAS [id number] 02:27:00 Test Item Value Reference Range Interpretation Comments SITE (test code = ARTHUR See_Comment [Automate d message] SITE) The system [employer] generated this result transmitted ref erence range: -SITE. T he reference range was not used to interpr et this result as normal/abnormal . ALLENS (test code = N/A ALLENS) O2 EQUIP (test code VENT O2-DEVICE = O2 EQUIP) FIO2 (test code = 80 % FIO2) A/C (test code = 36 A/C) PT. RR (test code = 36 PT. RR) PEEP (test code = 10 PEEP) VT (test code = VT) 450 PIP (test code = 32 PIP) VMIN (test code = 16.7 VMIN) PH (test code = 7.40 7.35-7.45 BGPH) PCO2 (test code = 38 MMHG 34.0-45.0 PCO2) PO2 (test code = 59 MMHG 79-87 L PO2) HCO3 (test code = 23.5 mmol/L 22.0-26.0 HCO3) BE (test code = BE) -1.1 mmol/L -2.0-2.0 THB (test code = 10.7 G/DL 12-16 L THB) % 02 HB (test code 88.2 % 96.0-100.0 L = ABGSAT) %COHB (test code = 1.6 % See_Comment H [Automat ed message] BGCO) The system [employer] generated this result transmitted ref erence range: -1.5. Th e reference range was not used to interpr et this result as normal/abnormal . % MET HB (test code 0.7 % 0.4-1.5 = %MET HB) CAO2 (test code = 13.3 VOL% 15.7-21.6 L CAO2) PF/RATIO (test code 74.0 = PF/RATIO) ANTICOAG?: LAST DOSE?:WHOLE BLOOD [id number] 21:50:00 Test Item Value Reference Range Interpretation Comments WHOLE BLOOD GLUCOSE 171 MG/DL 70-99 Fastin g glucose (test code = POC GLU) normal <100 MG/DL- [employer] [place] recommend ation WHOLE BLOOD [id number] 21:30:00 Test Item Value Reference Range Interpretation Comments WHOLE BLOOD GLUCOSE 166 MG/DL 70-99 H Fastin g glucose (test code = POC GLU) normal <100 MG/DL- [employer] [place] recommend ation WHOLE BLOOD [id number] 16:45:00 Test Item Value Reference Range Interpretation Comments WHOLE BLOOD GLUCOSE 148 MG/DL 70-99 H Fastin g glucose (test code = POC GLU) normal <100 MG/DL- [employer] [place] recommend ation WHOLE BLOOD [id number] 10:25:00 Test Item Value Reference Range Interpretation Comments WHOLE BLOOD GLUCOSE 150 MG/DL 70-99 H Fastin g glucose (test code = POC GLU) normal <100 MG/DL- [employer] [place] recommend ation CHEST 1 VIEW [id number] 07:47:00 [facility] : 1950 Sex: F[address] [id number] IMAGING REPORTPatient Name: ANGY COLLAZOUna of Service: [id number]: 70 Sex: F Order #: [id number] Room: [facility] A 2SDOB: 1950 X-Ray Number: [id number] Record Number: [id number] Hospital Number: [id number] Physician: Jaswinder SHABAZZ Physician: ARMANDO RUGGIERO ONE VIEW 07/07/2020HISTORY: Covid 19 infection, pneumonia, intubationCOMPARISON: NoneTECHNIQUE: Supine AP portable chest x-rayEndotracheal tube tip is 6 cm above the varinder. Nasogastric tube tip isinthe region of stomach. Right subclavian vein catheter tip is at the upperright atrium level.There is borderline cardiomegaly. Lungs show diffusely increasedinterstitial markings and scattered airspace opacities that may be due toedema or pneumonia. No effusion or pneumothorax.IMPRESSION:Support device placement as discussed.Borderline cardiomegaly with diffuse bilateral pulmonary infiltratesprobably due to pneumonia.The study was performed on an stat basis and preliminary report [facility]ed [facility]carte[facility] by the [facility] service near the time of theexam.Electronically Signed By: Yeison Srivastava M.D., 07/08/2020 7:44 AMLegally authenticated by LINO PETE 2020-07-08 07:44:28ABDOMEN 1 [id number] 07:10:00 [facility] : 1950 Sex: F[address] [id number] IMAGING REPORTPatient Name: ANGY COLLAZODate of Service: [id number]: 70 Sex: F Order #: [id number] Room: [facility] 2SDOB: 1950 X-Ray Number: [id number] Record Number: [id number] Hospital Number: [id number] Physician: Jaswinder SHABAZZ Physician: Daria RUGGIEROm: Abdomen single viewHISTORY: Covid pneumonia, NG tube placementCOMPARISON: No comparison availab leFINDINGS: A nasogastric catheter terminates below the diaphragm with thetip and side-port projecting over the region of the antrum of the stomach.Air is seen within the bowel. Postsurgical clips in the pelvis.IMPRESSION:The nasogastric catheter appears appropriately positioned.Electronically Signed By: Haris Chavez M.D., 07/08/2020 7:07 AMLegally authenticated by MURTAZA HERNANDEZ JR 2020-07-08 07:07:42CHEST 1 VIEW [id number] 07:04:00[facility] : 1950 Sex: F [address] [id number] IMAGING REPORTPatient Name: ANGY COLLAZODate of Service: [id number]: 70 Sex: F Order #: [id number] Room: [facility] 2SDOB: 1950 X-Ray Number: [id number] Record Number: [id number] Hospital Number: [id number] Physician: Jaswinder SHABAZZ Physician: Armando RUGGIERO one view 07/08/2020History: Covid 19 infection, intubation, pneumoniaComparison: Prior dayTECHNIQUE: Upright AP portable chest x- rayFINDINGS:Support devices are unchanged.Cardiac, hilar, and mediastinal structures are stable. Lungs still showincreased interstitial markings and scattered airspace opacities which areprobably due to pneumonia. No new bony or soft tissue abnormalities areidentified.Impression:No improvement.Electronically Signed By: Yeison Srivastava M.D., 07/08/2020 7:02 AMLegally authenticated by LINO PETE 2020-07-08 07:02:[id number] 05:30:00 Test Item Value Reference Range Interpretation Comments MG (test code = MG) 2.2 mg/dL 1.6-2.3 [id number] 05:30:00 Test Item Value Reference Range Interpretation Comments PHOSPHOR (test code = PHOSPHOR) 3.8 MG/DL 2.5-4.5 [id number] 04:44:00 Test Item Value Reference Range Interpretation Comments FERRITIN (test code = FERR) 2330 NG/ML 11-264 H [id number] 03:43:00 Test Item Value Reference Range Interpretation Comments LDH (test code = LDH) 2205 U/L 313-618 H C-REACTIVE [id number] 03:43:00 Test Item Value Reference Range Interpretation Comments CRP (test code = CRP) 18.5 mg/dL 0.5-1.0 H COVID SYMPTOMATIC ER [id number] 03:27:00 Test Item Value Reference Range Interpretation Comments CORONAVIRUS (COVID-19)BY POSITIVE A RES ULTS VERIFIED.C'd PCR (test code = [facility] @ [id number]) 0325 07-08-2020* S [id number] 03:21:00 Test Item Value Reference Range Interpretation Comments SODIUM (test code 139 MMOL/L 137-145 = NA) K+ (test code = 4.4 MMOL/L 3.5-5.1 KSERUM) CHLORIDE (test 107 MMOL/L 98-107 code = CL) CO2 (test code = 18 MMOL/L 22-30 L CO2) BUN (test code = 24 MG/DL 7-17 H BUN) CREA (test code = 1.2 MG/DL 0.7-1.2 CREA) GLUCOSE (test code 179 MG/DL 70-99 H Fasting glucose = GLUCOSE) normal <100 MG/ DL- [place] recommendation* * CALCIUM (test code 8.3 MG/DL 8.4-10.2 L = CABLOOD) TOTPROT (test code 5.8 G/DL 6.3-8.2 L = TOTPROT) ALBUMIN (test code 3.2 G/DL 3.5-5.0 L = ALBSERUM) BILITOT (test code 1.6 MG/DL 0.2-1.3 H = BILITOT) AST (test code = 118 U/L 15-46 H AST) PHOSALK (test code 70 U/L 38-126 = PHOSALK) ALTV (test code = 46 U/L 13-69 ALTV) GFR (test code = 47 A GFR of >9 0 GFR) mL/min/1.73m2 mL/min/1.73m2 is considered norm al. The GFR calcula tion on patients ove r 70 years of age is not validated by e production material handler an d may not represent t he patients true r enal function. D-DIMER, [id number] 03:05:00 Test Item Value Reference Range Interpretation Comments D-DIMER (test 2605 ng/mL (FEU) 0-500 H VALUES OF QUANTITATIVE code = DDIMER) D-DIMER LESS THAN 499 ng/mL HAVE BEEN REPORTED TO BE ASSOCIATED WITH A LOW PROBABILITY OF DEEP VEIN THROMBOSIS/PULM ONARYEMB OLISM. THIS ERNESTO T ALONE SHOULD NOT BE U SED TO RULE OUT DVT/PE . BLOOD GAS [id number] 02:39:00 Test Item Value Reference Range Interpretation Comments SITE (test code = ARTHUR See_Comment [Automate d message] SITE) The system [employer] generated this result transmitted ref erence range: -SITE. T he reference range was not used to interpr et this result as normal/abnormal . ALLENS (test code = N/A ALLENS) O2 EQUIP (test code VENT O2-DEVICE = O2 EQUIP) FIO2 (test code = 80 % FIO2) A/C (test code = 36 A/C) PT. RR (test code = 36 PT. RR) PEEP (test code = 10 PEEP) VT (test code = VT) 450 PIP (test code = 37 PIP) VMIN (test code = 16.6 VMIN) PH (test code = 7.36 7.35-7.45 BGPH) PCO2 (test code = 34 MMHG 34.0-45.0 PCO2) PO2 (test code = 70 MMHG 79-87 L PO2) HCO3 (test code = 19.2 mmol/L 22.0-26.0 L HCO3) BE (test code = BE) -5.5 mmol/L -2.0-2.0 L THB (test code = 12.4 G/DL 12-16 THB) % 02 HB (test code 93.8 % 96.0-100.0 L = ABGSAT) %COHB (test code = 2.0 % See_Comment H [Automat ed message] BGCO) The system [employer] generated this result transmitted ref erence range: -1.5. Th e reference range was not used to interpr et this result as normal/abnormal . % MET HB (test code 0.6 % 0.4-1.5 = %MET HB) CAO2 (test code = 16.4 VOL% 15.7-21.6 CAO2) PF/RATIO (test code 88.0 = PF/RATIO) ANTICOAG?: LAST DOSE?:[id number] 00:17:00 Test Item Value Reference Range Interpretation Comments PROCALCITONIN (test 0.757 ng/mL 0.0-0.5 H 0 - 0.5 ng/mL- Low code = PROCAL) risk for prog ression to severe sepsi s and/or septic s hock. PCT >0.5 is considered elev ated. 2.0 - 10 ng/mL- High risk for progre ssion to severe sepsi s and/or septic s hock. >/= 10 ng/mL - Severe sepsis o r septic shock. H igh risk of Mortali ty. PCT levels <0.5 ng/mL do not ex clude an infection. [id number] 23:18:00 Test Item Value Reference Range Interpretation Comments GLUCOSE (test code = URGLU) NEGATIVE MG/DL NEG-100 BILIRUBN (test code = URBILI) NEGATIVE NEGATIVE KETONE (test code = URKET) 15 MG/DL NEGATIVE BLOOD (test code = URBLD) SMALL UR PH (test code = URPH) 6.0 5.0-7.5 PROTEIN (test code = URPRO) 100 MG/DL NEGATIVE NITRITES (test code = URNIT) NEGATIVE NEGATIVE UROBILINGEN (test code = 0.2 EU/DL 0.2-1.0 URURO) LEUKOCYT (test code = URLEU) SMALL NEGATIVE UA COLOR (test code = UA YELLOW YELLOW COLOR) CLARITY (test code = CLARITY) CLEAR CLEAR SP GRAV (test code = URSPGRAV) 1.017 1.000-1.025 UAMICRO (test code = UAMICRO) YES WBC (test code = URWBC) 1 /HPF 0-5 RBC (test code = URRBC) 2 /HPF 0-2 CASTS (test code = CAST) 33 /LPF 0-3 H CASTTYPE (test code = HYALINE CASTTYPE) UR EPI (test code = EPI) 68 /LPF BACTERIA (test code = NEGATIVE NONE BACTERIA) D-DIMER, [id number] 23:08:00 Test Item Value Reference Range Interpretation Comments D-DIMER (test 1882 ng/mL (FEU) 0-500 H VALUES OF QUANTITATIVE code = DDIMER) D-DIMER LESS THAN 499 ng/mL HAVE BEEN REPORTED TO BE ASSOCIATED WITH A LOW PROBABILITY OF DEEP VEIN THROMBOSIS/PULM ONARYEMB OLISM. THIS ERNESTO T ALONE SHOULD NOT BE U SED TO RULE OUT DVT/PE . PROTHROMBIN TIME WITH [id number] 22:45:00 Test Item Value Reference Range Interpretation Comments PROTHROMBIN TIME 15.6 SECONDS 10.1-12.7 H INR Usual R patricia = 2 (test code = PT) to 3 for pr evention of deep vein thrombosis (DVT ) INR (test code = INR) 1.4 [id number] 22:45:00 Test Item Value Reference Range Interpretation Comments PTT (test code = 24.9 SECONDS 25.0-36.5 L HEPARIN THE RAPEUTIC PTT) RANGE 57-92 SEC ONDS [id number] 22:23:00 Test Item Value Reference Range Interpretation Comments FERRITIN (test code = FERR) 449 NG/ML 11-264 H [id number] 22:09:00 Test Item Value Reference Range Interpretation Comments BLOOD TYPE (test O Rh Positive Comment for code = TYPE) Female s Rhogam may be indicated for patient dependi ng baby's Rh statu s. ANTIBODY SCREEN NEGATIVE NEGATIVE (test code = SCREEN) C-REACTIVE [id number] 21:55:00 Test Item Value Reference Range Interpretation Comments CRP (test code = CRP) 18.2 mg/dL 0.5-1.0 H [id number] 21:55:00 Test Item Value Reference Range Interpretation Comments LDH (test code = LDH) 2051 U/L 313-618 H [id number] 21:46:00 Test Item Value Reference Range Interpretation Comments SODIUM (test code 140 MMOL/L 137-145 = NA) K+ (test code = 3.9 MMOL/L 3.5-5.1 KSERUM) CHLORIDE (test 106 MMOL/L 98-107 code = CL) CO2 (test code = 22 MMOL/L 22-30 CO2) BUN (test code = 21 MG/DL 7-17 H BUN) CREA (test code = 1.1 MG/DL 0.7-1.2 CREA) GLUCOSE (test code 171 MG/DL 70-99 H Fasting glucose = GLUCOSE) normal <100 MG/ DL- [place] recommendation* * CALCIUM (test code 8.4 MG/DL 8.4-10.2 = CABLOOD) TOTPROT (test code 6.2 G/DL 6.3-8.2 L = TOTPROT) ALBUMIN (test code 3.4 G/DL 3.5-5.0 L = ALBSERUM) BILITOT (test code 0.8 MG/DL 0.2-1.3 = BILITOT) AST (test code = 89 U/L 15-46 H AST) PHOSALK (test code 73 U/L 38-126 = PHOSALK) ALTV (test code = 31 U/L 13-69 ALTV) GFR (test code = 52 A GFR of >9 0 GFR) mL/min/1.73m2 mL/min/1.73m2 is considered norm al. The GFR calcula tion on patients ove r 70 years of age is not validated by e production material handler an d may not represent t he patients true r enal function. BLOOD GAS [id number] 21:28:00 Test Item Value Reference Range Interpretation Comments SITE (test code = ARTHUR See_Comment [Automate d message] SITE) The system [employer] generated this result transmitted ref erence range: -SITE. T he reference range was not used to interpr et this result as normal/abnormal . ALLENS (test code = N/A ALLENS) O2 EQUIP (test code VENT O2-DEVICE = O2 EQUIP) FIO2 (test code = 100 % FIO2) A/C (test code = 36 A/C) PT. RR (test code = 36 PT. RR) PEEP (test code = 10 PEEP) VT (test code = VT) 450 PIP (test code = 40 PIP) VMIN (test code = 16.7 VMIN) PH (test code = 7.39 7.35-7.45 BGPH) PCO2 (test code = 35 MMHG 34.0-45.0 PCO2) PO2 (test code = 109 MMHG 79-87 H PO2) HCO3 (test code = 21.2 mmol/L 22.0-26.0 L HCO3) BE (test code = BE) -3.2 mmol/L -2.0-2.0 L THB (test code = 12.7 G/DL 12-16 THB) % 02 HB (test code 96.6 % 96.0-100.0 = ABGSAT) %COHB (test code = 1.6 % See_Comment H [Automat ed message] BGCO) The system [employer] generated this result transmitted ref erence range: -1.5. Th e reference range was not used to interpr et this result as normal/abnormal . % MET HB (test code 1.1 % 0.4-1.5 = %MET HB) CAO2 (test code = 17.4 VOL% 15.7-21.6 CAO2) PF/RATIO (test code 109.0 = PF/RATIO) ANTICOAG?: LAST DOSE?:[id number] 21:18:00 Test Item Value Reference Range Interpretation Comments WBC (test code = 12.3 K/UL 3.5-10.9 H WBC) RBC (test code = 4.31 M/UL 4.0-5.0 RBC) HGB (test code = 12.6 G/DL 11.5-15.5 HGB) HCT (test code = 39.6 % 34-46 HCT) MCV (test code = 91.9 FL 80-98 MCV) MCH (test code = 29.2 PG 28-32 MCH) MCHC (test code = 31.8 G/DL 32.5-36.5 L MCHC) RDW (test code = 15.3 % 11.5-14.5 H RDW) PLT (test code = 155 K/UL 150-450 PLT) MPV (test code = 11.8 FL 7.4-10.4 H MPV) MANDIFF (test code = NO MANDIFF) SCAN (test code = NO SCAN) NEUT% (test code = 90.0 % 40-75 H NEUT%) LYMPH% (test code = 5.6 % 24-44 L LYMPH%) MONO% (test code = 3.6 % 0-13 MONO%) EOS% (test code = 0.0 % 0-4 EOS%) BASO % (test code = 0.2 % 0-2 BASO%) IG (test code = IG) 0 % 0-1 IG% (test code = 0.6 % 0-1 IG% = Metam yelocytes, IG%) Myelocytes, and Promyelocytes. (Immature neutr ophils not including " bands".) > 3% IG indic ates risk of sepsis NRBC% (test code = 0 /100 WBC NRBC%) ABS NEUT (test code 11.1 K/UL 1.2-7.2 H = NEUT) BLOOD GAS [id number] 20:21:00 Test Item Value Reference Range Interpretation Comments SITE (test code = LRAD See_Comment [Automate d message] SITE) The system [employer] generated this result transmitted ref erence range: -SITE. T he reference range was not used to interpr et this result as normal/abnormal . ALLENS (test code = POS ALLENS) O2 EQUIP (test code VENT O2-DEVICE = O2 EQUIP) FIO2 (test code = 100 % FIO2) A/C (test code = 24 A/C) PT. RR (test code = 24 PT. RR) PEEP (test code = 10 PEEP) VT (test code = VT) 500 VMIN (test code = 11.9 VMIN) PH (test code = 7.33 7.35-7.45 L BGPH) PCO2 (test code = 46 MMHG 34.0-45.0 H PCO2) PO2 (test code = 72 MMHG 79-87 L PO2) HCO3 (test code = 24.3 mmol/L 22.0-26.0 HCO3) BE (test code = BE) -1.9 mmol/L -2.0-2.0 THB (test code = 12.7 G/DL 12-16 THB) % 02 HB (test code 94.8 % 96.0-100.0 L = ABGSAT) %COHB (test code = 1.8 % See_Comment H [Automat ed message] BGCO) The system ic h generated this result transmitted ref erence range: -1.5. Th e reference range was not used to interpr et this result as normal/abnormal . % MET HB (test code 0.7 % 0.4-1.5 = %MET HB) CAO2 (test code = 17.0 VOL% 15.7-21.6 CAO2) PF/RATIO (test code 72.0 = PF/RATIO) ANTICOAG?: LAST DOSE?:BG LAB ARTERIAL [id number] 20:21:00 Test Item Value Reference Range Interpretation Comments SITE (test code = LRAD See_Comment [Automate d message] The SITE) system which ge nerated this result tra nsmitted reference range : -SITE. The reference r patricia was not used to int erpret this result as normal/abnormal . ALLENS (test code = POS ALLENS) BGLAC (test code = 11.0 mg/dL 5.0-18.0 BGLAC) URINALYSIS W/ [id number] 19:18:00 Test Item Value Reference Range Interpretation Comments COLOR (BEAKER) (test code = Light Yellow 470) CLARITY (BEAKER) (test code = Clear 469) SPECIFIC GRAVITY UA (BEAKER) 1.006 1.001-1.035 (test code = 468) PH UA (BEAKER) (test code = 6.5 5.0-8.0 467) PROTEIN UA (BEAKER) (test code Negative Negative = 464) GLUCOSE UA (BEAKER) (test code Negative Negative = 365) KETONES UA (BEAKER) (test code Negative Negative = 371) BILIRUBIN UA (BEAKER) (test Negative Negative code = 462) BLOOD UA (BEAKER) (test code = Negative Negative 461) NITRITE UA (BEAKER) (test code Negative Negative = 465) LEUKOCYTE ESTERASE UA (BEAKER) Trace Negative A (test code = 466) UROBILINOGEN UA (BEAKER) (test 0.2 mg/dL 0.2-1.0 code = 463) RBC UA (BEAKER) (test code = < /HPF 519) WBC UA (BEAKER) (test code = 2 /HPF 520) SQUAMOUS EPITHELIAL (BEAKER) 1 /HPF (test code = 516) SOURCE(BEAKER) (test code = Urine, Voided 2833) CT, BRAIN, WITHOUT [id number] 18:57:00Reason for exam:->headacheWhat is the patient's sedation requirement?->No SedationFINAL REPORT CT Head without contrast CLINICAL HISTORY: Seizures new or progre ssiveheadache Episode of Care: Initial TECHNIQUE: Contiguous axial images through the head without contrast. This exam was performed according to the departmental dose optimization program which includes automated exposure control, adjustment of the mA and/or kV according to the patient size, and/or us e of an iterative reconstruction technique. COMPARISON: None FINDINGS: There is no CT evidence of acute infarct or intracranial hemorrhage. There is no hydrocephalus, midline shift, or apparent mass effect. There are no extra-axial fluid collections. The skull is intact. The visualized paranasal sinuses are well-aerated. IMPRESSION: No CT evidence of acute infarct, hemorrhage, or hydrocephalus. Signed: Devorah Dee MDReport Verified Date/Time: 02/09/2017 18:57:54 Reading Location: [facility] Radiology Reading Room CREATINE KINASE (CK), TOTAL AND [id number] 17:04:00 Test Item Value Reference Range Interpretation Comments CREATINE KINASE TOTAL (BEAKER) 108 U/L 29-200 (test code = 380) CREATINE KINASE-MB (BEAKER) (test 0.8 ng/mL 0.0-6.6 code = 750) CREATINE KINASE-MB INDEX (BEAKER) 0.7 % (test code = 395) CK-MB Reference Range:<6.7 Normal6.7-10.0 Borderline>10.0 AbnormalTROPONIN [id number] 17:04:00 Test Item Value Reference Range Interpretation Comments TROPONIN I (BEAKER) (test code = 397) < ng/mL 0.00-0.03 Troponin I (TnI) levels [...] failure, acidosis, acute neurological disease, and persistent tachyarrhythmia.[id number] 17:02:00 Test Item Value Reference Range Interpretation Comments PROTIME (BEAKER) (test code = 14.1 seconds 11.7-14.7 759) INR (BEAKER) (test code = 370) 1.1 <=5.9 PARTIAL THROMBOPLASTIN TIME 29.8 seconds 22.5-36.0 (BEAKER) (test code = 760) RECOMMENDED COUMADIN/WARFARIN INR THERAPY RANGESSTANDARD DOSE: 2.0 - 3.0 Includes: PROPHYLAXIS forvenous thrombosis, systemic embolization; TREATMENT for venous thrombosis and/or pulmonary embolus.HIGH RISK: Target INR is 2.5-3.5 for patients with mechanical heart valves.BASIC METABOLIC [id number] 16:58:00 Test Item Value Reference Range Interpretation Comments SODIUM (BEAKER) 142 meq/L 136-145 (test code = 381) POTASSIUM (BEAKER) 4.4 meq/L 3.5-5.1 (test code = 379) CHLORIDE (BEAKER) 107 meq/L 98-107 (test code = 382) CO2 (BEAKER) (test 29 meq/L 22-29 code = 355) BLOOD UREA NITROGEN 12 mg/dL 7-21 (BEAKER) (test code = 354) CREATININE (BEAKER) 1.17 mg/dL 0.57-1.25 (test code = 358) GLUCOSE RANDOM 96 mg/dL 70-105 (BEAKER) (test code = 652) CALCIUM (BEAKER) 9.1 mg/dL 8.4-10.2 (test code = 697) EGFR (BEAKER) (test mL/min/1.73 INSUFFIC IENT CLINICAL code = 1092) sq m DATA TO CALCULA TE ESTIMATED GFR. RAD, CHEST, PA OR AP, 1 [id number] 16:55:00Reason for exam:->chest painShould this be performed at the bedside?->YesFINAL REPORT TECHNIQUE: Frontal chest radiograph dated 02/09/2017. CLINICAL HISTORY: Chest pain COMPARISON STUDY: None IMPRESSION:Prominent interstitial lung markings are seen, anonspecific finding, due to either interstitial edema or pneumonitis. No focal consolidation. No pleural effusion or pneumothorax. Cardiomediastinal silhouette is normal in size. No pulmonary edema. Midline sternotomy ires are intact and well aligned. No fracture. Signed: Quinn Shaweport Verified Date/Time: 02/09/2017 16:55:35 Reading Location: [facility] Radiology Reading Room CBC W/PLT COUNT & AUTO [id number] 16:34:00 Test Item Value Reference Range Interpretation Comments WHITE BLOOD CELL COUNT (BEAKER) 6.3 K/ L 3.5-10.5 (test code = 775) RED BLOOD CELL COUNT (BEAKER) 3.63 M/ L 3.93-5.22 L (test code = 761) HEMOGLOBIN (BEAKER) (test code = 11.4 GM/DL 11.2-15.7 410) HEMATOCRIT (BEAKER) (test code = 35.5 % 34.1-44.9 411) MEAN CORPUSCULAR VOLUME (BEAKER) 97.8 fL 79.4-94.8 H (test code = 753) MEAN CORPUSCULAR HEMOGLOBIN 31.4 pg 25.6-32.2 (BEAKER) (test code = 751) MEAN CORPUSCULAR HEMOGLOBIN CONC 32.1 GM/DL 32.2-35.5 L (BEAKER) (test code = 752) RED CELL DISTRIBUTION WIDTH 13.4 % 11.7-14.4 (BEAKER) (test code = 412) PLATELET COUNT (BEAKER) (test 149 K/CU MM 150-450 L code = 756) MEAN PLATELET VOLUME (BEAKER) 11.5 fL 9.4-12.3 (test code = 754) NUCLEATED RED BLOOD CELLS 0 /100 WBC 0-0 (BEAKER) (test code = 413) NEUTROPHILS RELATIVE PERCENT 47 % (BEAKER) (test code = 429) LYMPHOCYTES RELATIVE PERCENT 39 % (BEAKER) (test code = 430) MONOCYTES RELATIVE PERCENT 9 % (BEAKER) (test code = 431) EOSINOPHILS RELATIVE PERCENT 4 % (BEAKER) (test code = 432) BASOPHILS RELATIVE PERCENT 1 % (BEAKER) (test code = 437) NEUTROPHILS ABSOLUTE COUNT 2.95 K/ L 1.56-6.13 (BEAKER) (test code = 670) LYMPHOCYTES ABSOLUTE COUNT 2.43 K/ L 1.18-3.74 (BEAKER) (test code = 414) MONOCYTES ABSOLUTE COUNT (BEAKER) 0.55 K/ L 0.24-0.36 H (test code = 415) EOSINOPHILS ABSOLUTE COUNT 0.26 K/ L 0.04-0.36 (BEAKER) (test code = 416) BASOPHILS ABSOLUTE COUNT (BEAKER) 0.06 K/ L 0.01-0.08 (test code = 417) IMMATURE GRANULOCYTES-RELATIVE 0 % 0-1 PERCENT (BEAKER) (test code = 2801) POCT-GLUCOSE [id number] 16:22:00 Test Item Value Reference Range Interpretation Comments POC-GLUCOSE METER 105 mg/dL 70-[address] [facility] [facility] (test code = DINH M[place]RQUEZ [place] 1538) [address] [id number] 08:05:0011.0[facility] ApsuuisLPDWFDLRASND8203-44-14 08:05:0057[facility] AhssivaOUMGBMUXEPNO6969-57-51 08:05:001.05[facility] SBTKJBTIUMIQ8221-29-74 08:05:11525Olfddzhm JcxuimjITLCFXGJEGCA0437-91-20 08:05:17735Naqgnarg HbxjoklZZQVDYIKSWQS1026-37-48 08:05:004.0[facility] OMDOCYTAFGSD7475-30-28 08:05:007.4[facility] UfhzpqmIAWNGQCSUNFT8146-46-44 08:05:0030[facility] NqfpuldNQDFUPQSCYMX0625-38-84 08:05:93596Lyueubui [facility] GHMVPOGNGFJH9747-44-95 08:05:0018[facility] YdpzfvyPUVGQVHIOC3242-95-34 08:05:00 0.4[facility] NqpdanfTGBEBTAAFU0309-73-04 08:05:000.0[facility]ann[facility] 2016-01-04 08:05:000.4[facility] LjyisxoCWPVBWWSKU4267-64-66 08:05:005.6[facility] BzzydtpICKXUTNLOV5645-67-31 08:05:000.7[facility] NknaovpXVIUNFPXYE7151-73-46 08:05:002.4[facility] EqlyocoMVGJRKXVKD0622-14-90 08:05:0045.0[facility] PICFRYTLGE6736-61-68 08:05:002.9[facility] ErxpsigSIZJPAZBES0583-13-13 08:05:00 38.3[facility] BkczoneMQFBRIEUOB5584-67-80 08:05:0010.7[facility]annHEMATOLOGY 2016-01-04 08:05:00Normal (01/04/16 3:05 AM)[facility] UsorvviHVYVKKPFGR3257-12-00 08:05:00Normal (01/04/16 3:05 AM)[facility] ZtlpcsoDAWZESBNSQ2428-54-61 08:05:0014.9 [facility] CnvninlYHFLFCFIHR6508-48-88 08:05:41667Hnojwvpq HermannHEMATOLOGY 2016-01-04 08:05:00 Test Item Value Reference Range Interpretation Comments MCH (test code = MCH) 30.4 pg 27.0-31.0 [facility] QffuihtBTMJPNVIFR3502-75-98 08:05:0033.4[facility]annHEMATOLOGY 2016-01-04 08:05:009.5[facility] QynzkfuWYFBVNSBUN8891-50-21 08:05:006.3[facility] OrwhhdmNBWCEFIHSR5348-37-38 08:05:0012.3[facility] UczoacaQCMLERYUTK3525-58-15 08:05:0036.7[facility] AsbbjihEVPVYPLXPO7048-94-49 08:05:004.03[facility] ZQERYLUGHB9102-58-08 08:05:0091.0[facility] HermannCHEM YBZJJ1169-98-99 10:49:0022 [facility]annCHEM VYGMW2354-04-43 10:49:008.3[facility]annCHEM PANEL 2016-01-03 10:49:72944Nbntvnpk HermannCHEM CVTUO0327-64-58 10:49:004.3[facility]annCHEM IJBSO6226-02-96 10:49:18550Lmguwdpg HermannCHEM QFQGD3222-25-29 10:49:006.3[facility] HermannCHEM AHJAT7978-83-56 10:49:0056[facility] HermannCHEM LFAMS4644-09-51 10:49:001.0[facility] HermannCHEM PNUPB6841-17-38 10:49:0044 [facility]annCHEM XWMFF0610-77-08 10:49:08297Riggrjia HermannCHEM PANEL 2016-01-03 10:49:001.29[facility] HermannCHEM RUCDZ5318-42-14 10:49:003.5[facility] HermannCHEM MEFAX9412-38-73 10:49:0030[facility]annCHEM TQDIR4296-69-51 10:49:09406Frpizsbz HermannCHEM GDGES4644-36-42 10:49:27766Arfaisuy HermannCHEM PQSYB3643-92-05 10:49:002.8[facility] HermannCHEM JXRUM9433-68-78 10:49:001.2 [facility]annCHEM SGTTI9932-63-79 10:49:0017[facility] HermannCHEM PANEL 2016-01-03 10:49:0014.3[facility] UusytohOBOFFHTZSO2054-60-49 10:49:000.0[facility] QetzaaoDHTKWIKLZA6475-00-64 10:49:0076.1[facility] RrysplgCGCWHQRRIU3351-94-96 10:49:001.4[facility] QwibpwuELZUXXNHRJ2951-98-41 10:49:008.3[facility] VGRURAWRTD8725-73-03 10:49:000.2[facility] QmcmgicMGTPDAILVP9874-86-38 10:49:000.3 [facility] PbbxscoKKZRSVYNWU4207-24-12 10:49:000.9[facility]annHEMATOLOGY 2016-01-03 10:49:002.4[facility] WmbytkbUECRMWCNSC6038-05-91 10:49:008.3[facility] LqpyzgyFZRNARCLMV5512-16-18 10:49:0013.0[facility] PbipjujLIAEVAPZWI8877-07-65 10:49:001.03[facility] DupljhtPTZYKIADJT2915-25-02 10:49:00 Test Item Value Reference Range Interpretation Comments PTT (test code = PTT) 30.7 s 22.9-35.8 [facility] LuafidfDJRTBFZBOJ4220-36-09 10:49:00 Test Item Value Reference Range Interpretation Comments PT (test code = PT) 13.8 s 12.0-14.7 [facility] CsrehliBMQMXBSZLT7898-18-51 10:49:009.0[facility]Y 2016-01-03 10:49:29623Vwmixfcg JarlaxmWMNYKNYFFZ4473-16-62 10:49:0010.9[facility] RsuvgikISQMZHIPBU7664-34-37 10:49:0013.6[facility] IsjnokwNQXOUWNDKS9243-65-79 10:49:004.44[facility] ZgalyjjMTAFASPNTU2151-80-93 10:49:0014.3[facility] ETIJEANLBB2821-94-19 10:49:0033.8[facility] VddsqjrIKYWJJQQKV1437-62-61 10:49:00 Test Item Value Reference Range Interpretation Comments MCH (test code = MCH) 30.6 pg 27.0-31.0 [facility] FwzgnzoPZGYGTKAOF8319-65-49 10:49:0040.2[facility] 2016-01-03 10:49:0090.6[facility] WSGGX1789-12-93 08:42:0015 [facility] BFUUL1718-27-10 08:42:002[facility] RDOEV0085-91-20 08:42:002[facility] TSZXX8222-63-95 08:42:00 Negative (01/03/16 3:42 AM)[facility] BHVIR1554-23-17 08:42:00 Negative *NA*(01/03/16 3:42 AM)[facility] YNTKL4221-24-16 08:42:00 Negative (01/03/16 3:42 AM)[facility] KNYEL2553-58-01 08:42:00 Negative (01/03/16 3:42 AM)[facility] ICPOI2852-02-68 08:42:005.0 [facility] TLEFT1422-93-73 08:42:00Marked *ABN*(01/03/16 3:42 AM) [facility] XSYEV8417-22-84 08:42:001.026[facility]annCHEMISTRY 2013-06-18 12:30:0021[facility] KotqdemALWAXAOUX5932-90-46 12:30:000.9[facility] YzuqsoeRJKCUZHKJ0129-80-57 12:30:0012[facility] TdixmcbULRKSYRRD9094-35-23 12:30:0012[facility] GeldosfJJYYXZROO8985-02-50 12:30:006.1[facility] CRDVMNUTRL7356-31-87 12:30:007.7[facility] HbqefkkREIDPKWVGX1075-36-46 12:30:00 33.5[facility] EhlwnkpKYGJDZEUUK8348-07-54 12:30:001.3[facility]annHEMATOLOGY 2013-06-18 12:30:002.9[facility] TptpzohZZUCWBCAEU8983-37-72 12:30:0010.4[facility] OgrgpdySQLIAXKYCB6883-22-31 12:30:000.5[facility] JslleyxCXYVRTJRSH3938-80-96 12:30:002.0[facility] TbrakzxDKCFOIDHWD5171-29-07 12:30:000.6[facility] BYQDUTECWI1175-51-88 12:30:000.1[facility] ExsspxhSFTWOODQUI1362-02-23 12:30:00 47.1[facility] EbnssucHJMHWQQUWT6306-24-61 12:30:0086.0[facility]annHEMATOLOGY 2013-06-18 12:30:009.6[facility] BturzepBGTGCYHAIH1134-20-44 12:30:0028.9[facility] NbtdnvmXOWOOZJDHS9515-33-53 12:30:00 Test Item Value Reference Range Interpretation Comments MCH (test code = MCH) 28.8 pg 27.0-31.0 N [facility] YpqxywdLGTYYWJXSK1988-53-18 12:30:0033.5[facility]annHEMATOLOGY 2013-06-18 12:30:006.1[facility] PxgbilqGALCDFONJJ2847-06-02 12:30:003.36[facility] XvyebhtLTHXJCSWYX7027-86-87 12:30:009.6[facility] MjpkwpbFNNIBDHPOS6666-64-23 12:30:0016.4[facility] SqvfnqdCPOOXMCENO4214-53-67 12:30:92514Ldveljqu Javier SCCBBSKCYU0219-17-08 12:30:0070[facility] KhpiqfwQBIAUGQCW1057-35-65 12:30:000.9 [facility] EslggoyDZBBAXBYM9651-14-75 12:30:003.2[facility]annCHEMISTRY 2013-06-18 12:30:0013[facility] LxcffubQUFEPGOFM8093-67-01 12:30:0012.6[facility] YxxsqniGRPOBYQKY3747-67-01 12:30:0069[facility] RksrzgoBYPYTIWEY6714-56-39 12:30:0090[facility] NlncihgIUEUFWTJT0046-78-10 12:30:0073[facility] EVMXGOKWX6957-38-34 12:30:002.9[facility] ZkaxowaXHIFNRWKO2088-11-51 12:30:000.3 [facility] VvvdbgmGBVVKBJRJ6476-09-71 12:30:008.2[facility] HermannCHEMISTRY 2013-06-18 12:30:39892Lqziuesp HrqadmgTVEPTXVRU3280-93-25 12:30:003.6[facility] BzwuxzwWMNLXTJHO0927-96-45 12:30:0025[facility] WvabujpOYMLNJBJV7366-71-27 12:30:37889Zcocdhda SiowfzlRSYZRXTQO4625-83-20 11:30:0011.2[facility] HDJOBLCPW3656-51-35 11:30:488527Owwfhujq McobomtLVPVHKLKEQ6302-65-18 15:45:34 <=1.0[facility] MxadudsIYKTFJMLLB7092-09-09 15:45:342[facility] HermannURINALYSIS 2013-06-14 15:45:347[facility] NfewmhsBAZWPIMAWX0750-51-25 15:45:34Negative (06/14/2013 09:45:34)[facility] SepleviLPTVJXGSJQ5036-91-60 15:45:344[facility] BikiziyXHLVOYVIFX4736-53-98 15:45:34Negative *NA*(06/14/2013 09:45:34)[facility] DjkmeehTGFMZKKQHC8179-65-51 15:45:34Negative (06/14/2013 09:45:34)[facility] NxhgwxnBQRCRQEIZR3260-79-24 15:45:34Negative (06/14/2013 09:45:34)[facility] ZsjyduzBVLZFDWKCO1673-44-55 15:45:345.5[facility] LhgvjjcEQPSZXZMOA3038-67-21 15:45:341.009[facility] VcmcoqfLCPGEHBPYT4385-88-06 15:45:34Clear (06/14/2013 09:45:34)[facility] ElvdrydIKAJJWUFWV8563-27-40 15:45:34Light Yellow *NA*(06/14/2013 09:45:34)[facility] AlifnnvHSFOUYIZJ8264-14-82 12:00:0015.0 [facility] YokmielWVOTFWNVP1584-23-63 12:00:003.4[facility] HermannCHEMISTRY 2013-06-14 12:00:0013[facility] CcuuonqIROSGHGUP6574-09-44 12:00:000.8[facility] ZyqfkdjABMAPDMQR4795-05-14 12:00:0069[facility] JktnhboNVFGACLMZ0684-98-77 12:00:002.7[facility] NumgaojYBJYWBVMK0519-80-26 12:00:0097[facility] BHJMZXHDP2999-21-14 12:00:000.9[facility] CpvvqwhIBCSCTGAX8159-86-64 12:00:0078 [facility] RfjzgdtQSBSSDSOO1053-62-16 12:00:0012[facility] HermannCHEMISTRY 2013-06-14 12:00:004.0[facility] WrxzfolVRLYUSUYV9114-26-34 12:00:89379Wrtwdehu LckwcwwAJJHERLJP4196-67-03 12:00:0024[facility] LfqusuzJTDMLIOFH7268-57-65 12:00:008.2[facility] LkpvwcnXEXKGETOX0973-74-53 12:00:38707Kchsblxb [place] BBPXZCBTR0819-72-93 12:00:000.3[facility] XdmfexlUHZJMGXZD0493-49-86 12:00:006.1 [facility] XpbbgnhGWBJUOAHA8780-61-22 12:00:0017[facility]annCHEMISTRY 2013-06-14 12:00:0017[facility] QegigqzZTMOMXESFI6474-80-20 12:00:001.6[facility] AzshrshFLBJZQHXBK7702-61-46 12:00:000.6[facility] AmrrvtbRWWGHEAEAF7729-12-98 12:00:000.7[facility] QcixdyfXJUHLPTIET8278-94-67 12:00:000.6[facility] TQKVAHQOPG4854-15-86 12:00:003.8[facility] ItruqrrNXPXICLOYC6386-98-89 12:00:000.0 [facility] QgavftySPSONENUIF7341-71-05 12:00:009.1[facility] HermannHEMATOLOGY 2013-06-14 12:00:008.6[facility] SimltmhUGAYZXYSQY3920-77-13 12:00:0057.0[facility] GmgqgjjRHGTAWREWP2289-37-12 12:00:0024.6[facility] GmwjsdbDYBEGSRFGR6401-35-69 12:00:009.6[facility] KoorgynASXFCHZAAG6870-70-40 12:00:003.33[facility] PXVGXDUDPE0294-24-58 12:00:0028.5[facility] AsmudyfLPLTWQYADV5299-59-79 12:00:00 6.6[facility] YtzqyihOZVLBGFQZY1121-58-82 12:00:009.8[facility] HermannHEMATOLOGY 2013-06-14 12:00:60754Lekotxqh DiidvlmSCBGKSCSUG2848-58-07 12:00:0016.0[facility] FpfcnoaEMAYIUAYHU8632-71-96 12:00:00 Test Item Value Reference Range Interpretation Comments MCH (test code = MCH) 28.9 pg 27.0-31.0 N [facility] NrrjxtiXPISUMCHYR8344-68-19 12:00:0033.8[facility] HermannHEMATOLOGY 2013-06-14 12:00:0085.6[facility] YdbqozpLIITWSGDN1128-58-42 11:00:008.2[facility] GeyxlovWCCSCEPCO0383-05-81 11:00:0069[facility] CebmdkxCMVMJYOXJ8294-29-15 11:00:06642Jhallevi FqbirphJMRQMUTBV9127-84-67 11:00:004.0[facility] ECTBPCNBW5611-84-31 11:00:0014[facility] QtoqtueUXWWMKNYP4290-78-41 11:00:000.9 [facility] LimxpwzOYEEPWXKT8366-93-78 11:00:0028[facility] HermannCHEMISTRY 2013-06-12 11:00:38067Uupijrsa BconxfnPLQMYLJVU7089-27-72 11:00:0082[facility] HtxxguqMGHPIBRUE6221-11-04 11:00:0012.0[facility] FkxkyajPAGWIRCWFE0772-37-53 11:00:00Slight (06/12/2013 05:00:00)[facility] NampwjxHQWUZHGBTU5183-34-48 11:00:00Slight *ABN*(06/12/2013 05:00:00)[facility] FqbgfwcUERAVLMVTR0994-26-99 11:00:00Slight *ABN*(06/12/2013 05:00:00)[facility] LlgkurdKELSLAFMGZ0695-79-94 11:00:00Slight *ABN*(06/12/2013 05:00:00)[facility] FoxqeoaNFOATWVKDY9005-48-31 11:00:000.8[facility] UiiojwvCQJGXXBDZU2507-66-54 11:00:000.5[facility] FJFZBSCVUX8726-72-59 11:00:004.3[facility] CagiohjWWLGCGINRR5905-40-26 11:00:001.8 [facility] AhygoewSEWDOGETPP6002-56-65 11:00:0057.7[facility] HermannHEMATOLOGY 2013-06-12 11:00:00Normal (06/12/2013 05:00:00)[facility]annHEMATOLOGY 2013-06-12 11:00:00Slight (06/12/2013 05:00:00)[facility]annHEMATOLOGY 2013-06-12 11:00:001+ *ABN*(06/12/2013 05:00:00)[facility]annHEMATOLOGY 2013-06-12 11:00:000.1[facility] KdidxvbUDQMUKIFJG1494-42-47 11:00:000.8[facility] TksizmdIUWTSMYSOR8289-37-96 11:00:006.6[facility] AygqhdxUVYXCTEEBG3312-43-20 11:00:0024.6[facility] TmeebmgSUPXYUIEBT7364-64-86 11:00:0010.3[facility] UIVQAWWGSQ5286-47-37 11:00:007.4[facility] JqgteaqKPPDLEYHAJ5250-98-28 11:00:009.4 [facility] CgnmjgzHTPIODHSAE5160-01-64 11:00:003.21[facility] HermannHEMATOLOGY 2013-06-12 11:00:00 Test Item Value Reference Range Interpretation Comments MCH (test code = MCH) 29.3 pg 27.0-31.0 N [facility] DafagiuPVXJVMIPYF4289-07-91 11:00:0087.7[facility] HermannHEMATOLOGY 2013-06-12 11:00:0028.2[facility] LbkjstnUMGEBLTEYW9362-12-78 11:00:009.5[facility] SapksikQOINMSPIWI9806-89-81 11:00:0015.5[facility] ZvmcppmLLQMODQAUI1388-07-64 11:00:0033.5[facility] JcsjsanWHBUCJTFDN4742-57-22 11:00:93319Oglfhqua [place] ORIAVRTRS5855-32-22 12:00:002.0[facility] KoqncsxXSCMULAEU5198-54-98 12:00:003.6 [facility]annBEDSIDE GLUCOSE WRKJMWG3832-17-92 00:15:89527Yfvzzanu [facility] BEDSIDE GLUCOSE TRSLAKT8710-02-04 17:45:01925Uzzibzyv HermannBEDSIDE GLUCOSE RNBWUAV6991-56-80 11:47:17152Wcxnqkne OshunnlZWTQCEZKT0259-51-32 11:40:002.1 [facility] CvyesknADADDJLVE3161-86-18 11:40:003.5[facility] HermannCHEMISTRY 2013-06-10 11:40:0080[facility] KwuisxuTAJLRSNKQ6212-60-56 11:40:008.2[facility] UaotginRSQHEZBEJ1116-09-73 11:40:009.8[facility] XpjbjqrVTRNUTKIK3843-93-00 11:40:0031[facility] VuejgruTQULTQBYT1765-14-66 11:40:003.8[facility] EZTLERTWR3810-73-39 11:40:29363Oyilacou KezvnooUVKDLSOAS9891-67-65 11:40:000.8 [facility] CxofxzrYFDPQHQWW0066-66-98 11:40:87619Pbwfohqe HermannCHEMISTRY 2013-06-10 11:40:0018[facility] DintfobMAQGJNRFP5937-13-98 11:40:50597Burspnti VzkakbzHNPPHZPKS9837-06-69 11:00:003.3[facility] CsydcvaSFPZOKYYE8274-49-17 11:00:007.9[facility] ZkcsomzWDMBQAVSV8015-19-50 11:00:0030[facility] CCSLGGUYM2329-69-09 11:00:0012.5[facility] AvukbkrEPNBVGQTX8789-63-05 11:00:0069 [facility] NnbccchKEGJKVCEO9107-77-56 11:00:74059Tgnlumon HermannCHEMISTRY 2013-06-09 11:00:0017[facility] BhgisgkELMOPKSEN1171-76-83 11:00:57396Hfzipsan IbnmhnmKSUZSKFHB2853-64-11 11:00:000.9[facility] WpywcakZNWGPAFGZ9655-75-15 11:00:95319Oyhbbeao EexgmuhMKCZFVVEC5895-55-79 11:00:003.5[facility] NVBZVYDMY1116-56-00 11:00:002.0[facility] CvjpjahJABZWBCTOO8217-16-39 11:00:007.8 [facility] UdflcybESIXVHOFG9737-21-16 12:00:57659Azjunpnj HermannCHEMISTRY 2013-06-08 12:00:0063[facility] MwbgrabLOUJIIHQP7293-66-81 12:00:007[facility] UycidvhGLMRNJSSK5477-74-23 12:00:000.5[facility] ObywfrtLNKARADTY9274-68-02 12:00:0020[facility] HvhoftxAJHYWNURU2012-18-60 12:00:005.5[facility] IRBGDEBVT8766-64-85 12:00:003.3[facility] RqemjyrGIFUHUKDN1267-47-57 12:00:000.7 [facility] XhgksuqFYMZUAIAL9794-28-03 12:00:002.[facility] HermannCHEMISTRY 2013-06-08 12:00:006[facility] EfhntuwJNMUQBAWES4340-72-90 12:00:006.8[facility] RqyeqzhJGTFLLWCEQ8511-05-77 12:00:000.5[facility] ChujewzOTKGPTNXSO8983-85-64 12:00:004.1[facility] MfiaszkQKBLMFIONY9903-63-83 12:00:000.7[facility] KJYSSNEJJN6060-61-39 12:00:001.2[facility] HqdjoqwLIWJFJZYMJ2673-84-22 12:00:008.0 [facility] YwzbxxmXHHMDKIMVU1465-36-40 12:00:0012.8[facility] HermannHEMATOLOGY 2013-06-08 12:00:000.0[facility] XuwmqyuWEREQPXXIX5198-13-11 12:00:000.4[facility] JwnzxkmRXNGZCENPZ7305-13-80 12:00:0074.6[facility] VhmgppwPZYNZGVFKC5329-15-60 12:00:0034.2[facility] AxmyjnlGLKXUNOLHG3537-85-60 12:00:00 Test Item Value Reference Range Interpretation Comments MCH (test code = MCH) 29.0 pg 27.0-31.0 N [facility] RzaitkqCQOVYVAWUU5598-96-69 12:00:0015.6[facility] HermannHEMATOLOGY 2013-06-08 12:00:009.9[facility] RwpkzigEDEEGYLXBK4185-08-47 12:00:02119Gtqsbazn JomzbdeQAFSMVYOUJ1192-77-16 12:00:0084.8[facility] YbowrweKOAIDJLKTY7518-44-94 12:00:0027.3[facility] KjwgxicNWUCNHSLPH1598-80-88 12:00:009.1[facility] FAGZLKJHGH0681-39-48 12:00:003.21[facility] RssdzziHJVBIBGGMG7024-28-37 12:00:00 9.3[facility] CucffcnPAHVOEBYP2227-98-44 20:40:789545Mvxyxlmu HermannCHEMISTRY 2013-06-07 20:40:354.7[facility] RzjwezmBIGSWRWNLX2766-54-07 08:45:00 Test Item Value Reference Range Interpretation Comments aPTT (test code = aPTT) 33.8 s 22.9-35.8 N [facility] YqegddgXGOPQPBZTW0310-06-09 08:45:001.25[facility] HermannHEMATOLOGY 2013-06-07 08:45:00 Test Item Value Reference Range Interpretation Comments PROTIME (test code = PROTIME) 15.6 s 12.0-14.7 H [facility] JnpwmlqILJLHQLFDR7189-96-83 08:45:64363Phwpjnww HermannHEMATOLOGY 2013-06-07 08:45:009.7[facility] KcozjkmZDRVRXOBAE1989-55-31 08:45:0015.5[facility] VrwvgqwYWMNKSNHJW0064-18-94 08:45:21361Xvvrdtqy OmoynrpWRRLQSVLXD4356-45-31 08:45:00 Test Item Value Reference Range Interpretation Comments MCH (test code = MCH) 27.9 pg 27.0-31.0 [facility]lxgqxtPTITFSDSEN0765-40-45 08:45:0033.0[facility] HermannHEMATOLOGY 2013-06-07 08:45:0084.5[facility] NxsysykOWLHTNERQE5352-31-06 08:45:009.5[facility] SwhhuekEBFZEEEUMZ1162-01-53 08:45:0028.7[facility] BprufsrCGOPJHMZPC5619-46-52 08:45:0011.0[facility] HeuiytdNSMSBKXLDR9138-96-90 08:45:003.40[facility] B[facility] JGBBIWI9192-90-37 18:03:00Product available (06/06/2013 12:03:00) [facility] AcqunvxHIONYSGNSW8296-47-85 09:45:53 Test Item Value Reference Range Interpretation Comments aPTT (test code = aPTT) 36.6 s 22.9-35.8 H [facility] JkcwkcyBJSBAKHVM4034-05-09 09:30:0019[facility] HermannCHEMISTRY 2013-06-05 09:30:003.0[facility] QunhcrzCEACZUBUQ0490-35-75 09:30:0014[facility] VzrslnxALEFZEDWX4876-76-30 09:30:005.7[facility] GkaozilMBEZGKPLR1802-05-08 09:30:000.5[facility] ChogykrMZFIUIUXS6978-13-45 09:30:008[facility] ZMZLPQYTU5439-61-93 09:30:001.1[facility] SdmyqncYDFXLDJFZ4527-97-84 09:30:002.7 [facility] SpviqvkNRMYKSMBJ8784-97-90 09:30:0051[facility] HermannHEMATOLOGY 2013-06-04 21:45:0112.9[facility] UbbnmvuPBYVXYSGGE8275-80-43 21:45:0171.0[facility] QxfouvyZWZOSJDCJW2124-24-38 21:45:017.0[facility] DswfqnjBIZTDESCFK5988-48-05 21:45:012.6[facility] GbehbldCUAYINHALS2825-28-64 21:45:010.5[facility] MMHCXVZJPG3392-77-42 21:45:010.5[facility] YzxfvceQHZDAQMSWD2484-51-33 21:45:01 Slight *ABN*(06/04/2013 15:45:01)[facility] BqhdebtFYEZQVCDAI0856-29-96 21:45:01 3.0[facility] AzgngafEAWBFUROBC6190-99-48 21:45:013.0[facility] HermannHEMATOLOGY 2013-06-04 21:45:019.0[facility] MrczwazNDKAQBXIVV6605-89-68 21:45:017.0[facility] DhlgeyuEELZYTFDPT0922-60-23 21:45:01Normal (06/04/2013 15:45:01)[facility]LOOD B[facility] DQWFHHQ6973-62-82 18:06:00Product available (06/04/2013 12:06:00) [facility]BL[facility] JVGVDGR2504-92-46 11:45:00Negative (06/03/2013 05:45:00)[facility] EfgsgjxGIUHDIIII3440-28-11 16:50:001.32[facility] EFCTOOIGX9888-84-18 16:50:008.430[facility] KiqclpzKZTIZGBNW6693-57-07 16:50:009.0 [facility]annBEDSIDE GLUCOSE QTWSLUE2362-83-85 16:25:0095[facility] BEDSIDE GLUCOSE CVKUGJY3549-54-14 13:37:63334Uwuotiom HypsgrjLAZGLYKQF9940-88-35 11:00:001.6[facility] AjvydjsXZZMHQEUX0724-50-59 11:00:001.2[facility] FHIZZEALM2991-43-32 11:00:0019[facility] RevngsqAMLQQBLGS7712-45-94 11:00:0094 [facility] YwvidadPGJLQKLPL1426-86-54 11:00:007.9[facility] HermannCHEMISTRY 2011-09-21 11:00:003.9[facility] VuyvbgpFMWXWOCAV5706-65-99 11:00:09602Pqfohqaz FccvpycOQVJQZBUW3640-70-69 11:00:0024[facility] OhnhewjMYOEBLZXG2255-34-77 11:00:79190Sfxoelib YtpzmszLSJIQLLEJ4378-12-36 11:00:0015.9[facility] ECVZIVYBKX2266-72-02 11:00:000.9[facility] ZjkjrpoVGWBODGERJ6271-46-21 11:00:000.6 [facility] DulfijnAENWSZEHPH6137-88-41 11:00:000.0[facility] HermannHEMATOLOGY 2011-09-21 11:00:001.9[facility] HnahsuhZABDDMFTYA6332-80-63 11:00:006.7[facility] LfefypnBNVNLJBVRX0163-24-56 11:00:000.4[facility] FukrmmiDORGEKZQBK5058-07-05 11:00:004.9[facility] KrmcwkaATDQYUUIKE7085-70-15 11:00:0022.7[facility] ABXATMUMXB1182-29-47 11:00:0010.5[facility] UieakwcQCURUKYCAP7905-46-39 11:00:00 59.7[facility] GjqwtsuRRXUDWQCBL8096-13-83 11:00:003.15[facility]annHEMATOLOGY 2011-09-21 11:00:008.2[facility] DanugxzNKTSZOXTZN0649-68-03 11:00:0028.1[facility] SbnhbvtTANPNYRIIS6450-32-64 11:00:0014.5[facility] CwjbkdqADPBKPQHOT0368-69-75 11:00:00 Test Item Value Reference Range Interpretation Comments MCH (test code = MCH) 30.3 pg 27.0-31.0 N [facility] ChpoylfFOCKAZIJNU9052-15-64 11:00:0089.4[facility]annHEMATOLOGY 2011-09-21 11:00:0033.9[facility] OqlitsbVIKJOXWADC6060-98-41 11:00:009.5[facility] OzpmathZIJQGWQHFR5770-84-90 11:00:009.1[facility] DpeqggaKDZJAHFPUP0131-51-41 11:00:47567Hueziwkl HgrshlvDRWILKLBJE5626-63-76 11:00:00 Test Item Value Reference Range Interpretation Comments PTT (test code = PTT) 29.9 s 22.9-35.8 N [facility] PozrhniPIZIJVNZEY3171-06-92 11:00:001.23[facility] HermannHEMATOLOGY 2011-09-21 11:00:00 Test Item Value Reference Range Interpretation Comments PT (test code = PT) 15.5 s 12.0-14.7 [facility] NWQITTS4939-73-37 02:46:0097[facility] AXWILJEXN4249-77-96 10:38:001.7[facility] PeukdbrMZETBOKQT0492-63-11 10:38:0017.4 [facility] UmdkcevUQKDYLSDX6432-09-47 10:38:25029Aktsdemv HermannCHEMISTRY 2011-09-20 10:38:0020[facility] OmdusknDKGTOOQUH6779-89-12 10:38:10172Fowfiapc ZulbyidSUAMWHEQJ1275-63-61 10:38:003.4[facility] BrujpwqQCVVCCQSN6193-20-54 10:38:001.3[facility] UxnwjxpFXDZEJUSI3509-61-91 10:38:008.1[facility] JBTHKFFAI0001-84-50 10:38:0023[facility] ZlpcbgsGWIDTJOZJ0516-32-38 10:38:48070 [facility] ZpkuynrNXIXGJSFD6697-77-46 10:38:0028.0[facility] HermannCHEMISTRY 2011-09-20 10:38:009.9[facility] TbqbbfvCYCIEXLWM9903-18-68 10:38:000.64[facility] PmizjujQQSEQRAULS0109-09-95 10:38:001.18[facility] ZvfkjqgCMUVQDDMKZ1065-47-67 10:38:00 Test Item Value Reference Range Interpretation Comments PT (test code = PT) 15.0 s 12.0-14.7 H [facility] RinbgnhSDDWUCDDEY0613-48-92 10:38:00 Test Item Value Reference Range Interpretation Comments PTT (test code = PTT) 32.0 s 22.9-35.8 N [facility] BexathhLHGWOGFWFS3975-16-16 10:38:0014.8[facility] HermannHEMATOLOGY 2011-09-20 10:38:0033.5[facility] EfhlpgaAMSVMKVMDB7432-29-96 10:38:11263Nepsntyc LjiqfmhYIESDBDNOL1367-66-18 10:38:008.7[facility] CzzinfvHSLDFFELSS0728-61-58 10:38:003.70[facility] DgxczamMEYOZLDFVE8893-66-73 10:38:007.5[facility] JJLVMDACHU7703-66-01 10:38:0011.0[facility] GkvpijlNIJXIAOOGP0602-41-46 10:38:00 33.0[facility] YuxgxzaRMIKMXQEMF4151-73-01 10:38:0089.1[facility] HermannHEMATOLOGY 2011-09-20 10:38:00 Test Item Value Reference Range Interpretation Comments MCH (test code = MCH) 29.8 pg 27.0-31.0 N [facility] NljdlisKGLBTCKBOD4667-32-28 10:38:000.0[facility] HermannHEMATOLOGY 2011-09-20 10:38:000.6[facility] DscklreUSTCZAPGJO6965-08-90 10:38:0021.8[facility] DwvqntcQZVQEZROFS1472-31-27 10:38:0062.1[facility] KhbbcoaIJZMHMAQLJ8378-31-46 10:38:000.6[facility] DcyfkieREVFBWEIUV8238-31-03 10:38:001.6[facility] RMDFLEOYVH0676-46-26 10:38:004.7[facility] NoquiykGRJFTOUZHY7818-25-66 10:38:000.3 [facility] DrrweedHOJNOXYYZT6169-17-11 10:38:007.7[facility] HermannHEMATOLOGY 2011-09-20 10:38:008.1[facility] OldjxwxCMYVHSVKS2682-73-47 11:00:001.8[facility] LcynpexSJLGKNYLG9985-25-99 11:00:15402Pzmswvnc SwoteagPGDDCXUWL0033-24-32 11:00:003.5[facility] QflahlsNHIHGKQGV5997-31-30 11:00:001.3[facility] KXLTTKQMP6136-69-04 11:00:92593Cpqmyfug CpqrfjnCFCYFJKEB3606-09-54 11:00:0022 [facility] JfmgxqqGRBIGIOWV1431-09-40 11:00:0015.5[facility] HermannCHEMISTRY 2011-09-19 11:00:008.0[facility] YtqppltETEWZNHIR9226-18-33 11:00:0031[facility] CdfskezJEQFJRSOA2092-90-06 11:00:0090[facility] EagkjazARQFHBLNLV2124-57-22 11:00:006.0[facility] BbobmpiLXLAXKCUGC0640-55-49 11:00:000.8[facility] DFIFGBWAHC1742-70-93 11:00:001.7[facility] HnfafgrEYOGUOWJAW4307-60-32 11:00:000.6 [facility] BwhrqvbVTVWQQMLCL3676-46-40 11:00:008.5[facility] HermannHEMATOLOGY 2011-09-19 11:00:0018.2[facility] CqqaegiEZNGDEMGUD7381-05-74 11:00:000.4[facility] LecbsnmBZMHHTAWHB6497-43-76 11:00:006.7[facility] YtsbsnyYUFWQIHEMR1142-11-04 11:00:000.0[facility] RxssjntVXVQZIAVZV8070-61-20 11:00:0066.2[facility] XBICIASCMB0545-70-24 11:00:0089.3[facility] PqbudsyBUHUKYIEGT7458-33-95 11:00:00 31.0[facility] JpaydfvESIQQWUCKP1414-46-30 11:00:003.48[facility] HermannHEMATOLOGY 2011-09-19 11:00:0010.5[facility] LmajsnrTYAOSTLSFN2415-68-80 11:00:00 Test Item Value Reference Range Interpretation Comments MCH (test code = MCH) 30.1 pg 27.0-31.0 N [facility] ZhipfrkXCCHXXAHMN9573-31-21 11:00:28549Wmzikdyo HermannHEMATOLOGY 2011-09-19 11:00:0014.7[facility] PgmpqozKRNXOKTCXJ1480-30-84 11:00:008.3[facility] VmfdsoyDIKRVQWSWQ6316-74-15 11:00:0033.7[facility] OokyxtpNWYEGMSHEJ9558-99-39 11:00:009.1[facility] KtgjgwiMXNRWEARNQ0377-82-30 11:00:001.22[facility] SIUDRJSNZX9583-79-32 11:00:00 Test Item Value Reference Range Interpretation Comments PT (test code = PT) 15.4 s 12.0-14.7 H [facility] AdesaljUHFBRMKPRG5667-71-51 11:00:00 Test Item Value Reference Range Interpretation Comments PTT (test code = PTT) 30.7 s 22.9-35.8 N [facility] BrovigkFPYHFBOQF4701-27-62 18:20:909117Hxxhlibh HermannCHEMISTRY 2011-09-18 18:20:003.5[facility] GphhmpdTIHHVATTXK1598-23-43 11:50:00Normal (09/18/2011 06:50:00)[facility] OqavmrlAUTNBTVCWO6479-60-34 11:50:00Slight (09/18/2011 06:50:00)[facility] HctnsjdTKHRCRMGFB9441-97-71 11:50:00Slight (09/18/2011 06:50:00)[facility] CivfwgsBCSUACUBR8152-26-89 10:30:002.9[facility] WqiiohwWGTCRJWBEQ7088-76-15 10:30:00>=20 ug/ml *ABN*(09/17/2011 05:30:00) [facility] FhuhdfiIOXAORKPG3026-91-62 11:04:00NC (09/16/2011 06:04:00)[facility] YtfjyegVDKPFYNHQ3615-54-34 11:04:00Positive (09/16/2011 06:04:00)[facility] GbygyrnLMTBDRMNN9068-55-63 11:04:003.5[facility] RyqikryDNJRAAGQC1278-22-58 11:04:00Right Ra (09/16/2011 06:04:00)[facility] DepgpzbZWBSDSNQZ7377-00-25 11:04:0096.0[facility] BkpypczRIRAJRUMZ5589-22-36 11:04:0037.0[facility] EQBMHGJIV6278-97-02 11:04:00-1[facility] VzztcnpLQNDMFBWG2122-80-61 11:04:0037 [facility] QcnphwlPZLMZNHPG1974-08-80 11:04:007.41[facility] HermannCHEMISTRY 2011-09-16 11:04:0078[facility] ZstaccdEOUXBGMLZ0907-33-91 11:04:0024[facility] EtasjhlXQVUBZJCH3852-08-78 08:15:000.9[facility] AahnnkpIYHYQJDLQ8994-96-30 08:15:003.0[facility] AhckobuZJRNLVNHB4930-33-05 08:15:0026[facility] CDVCSMANV6053-79-48 08:15:008[facility] FadfxtdEVEHNPBPE9852-94-75 08:15:000.7 [facility] TrkmzspFACPVHQMM1067-40-25 08:15:0052[facility] HermannCHEMISTRY 2011-09-16 08:15:002.8[facility] ZgpqislNLOPJEIRL9614-99-46 08:15:005.8[facility] PzbqeejPPPDZAOOX0251-61-53 08:15:0012[facility] LjzftgrYUSNVKRHU0971-18-43 08:15:09836Vfzrznty KyiopidVBQHIGMAV7753-60-09 08:15:002.7[facility] RCNZYKFADW9334-03-11 08:15:00>=5[facility] LwlkzeaDHBDALCKY6470-76-56 11:08:00 36[facility] DfhbuacGLUNHUEVT2268-39-67 11:08:007.39[facility] HermannCHEMISTRY 2011-09-15 11:08:42337Uxawquad ZlzzuigZDBSRAWXC2677-16-02 11:08:0037.0[facility] JhmuxrfUESGDXQBN1675-73-91 11:08:00Right Ra (09/15/2011 06:08:00)[facility] TmiwzsoIDWZFJNDK5613-30-21 11:08:00Positive (09/15/2011 06:08:00)[facility] FmfzyloMWXAFUSEM3540-74-09 11:08:00-3[facility] FeurpukBUCOJHRJT3968-18-21 11:08:0022[facility] LmpahfqUBSMFBYHS4214-18-15 11:08:00A/C (09/15/2011 06:08:00) [facility] RrcznzpGNGLFSKAR4199-95-66 11:08:0098.0[facility] HermannCHEMISTRY 2011-09-15 11:08:0040.0[facility] GqzndpvIEUSGLMWV2760-77-21 08:00:000.9[facility] WxsmzklQWUVPNDLT4258-51-09 08:00:81845Igjwkazk ZtungaiNLSZNFVUR0018-58-09 08:00:000.03[facility] YuvsdicRDERNCBZZ7603-22-31 08:00:002.9[facility] JNMXMDLDX4264-77-14 08:00:004.08[facility] KqoxqdfDKGNTCZTO4187-75-97 08:00:004.04 [facility] OsnsegqIQWKYPIMR1811-83-65 08:00:001.01[facility] HermannCHEMISTRY 2011-09-15 08:00:001.02[facility] HdtcuvxERCJDKTMG6261-64-79 08:00:000.2[facility] SqekytbFSLEAPPFI3014-44-17 08:00:009.2[facility] MaqmeegTDYLXGLHV4575-94-55 08:00:05515Jcwxmzxk PrimagsYLSNDGZEBK3843-60-82 08:00:00>=5[facility] YMTNCVZNJ4887-86-28 21:30:001.2[facility] DnocjrwTWPEHIZVS0757-21-73 21:30:60780 [facility] DzysqxqMWBFDXIKS7415-05-19 21:30:000.04[facility] HermannCHEMISTRY 2011-09-14 21:30:000.1[facility]annBLOOD BANK XHKFANK4656-13-48 14:07:00 Product available (09/14/2011 09:07:00)[facility] HermannBLOOD BANK RESULTS 2011-09-14 14:05:00Negative (09/14/2011 09:05:00)[facility] HermannCHEMISTRY 2011-09-14 14:05:002.0[facility] XmhzkxoOVSQQBLPV4972-78-42 14:05:406355Rktgmzvr TlhhlfqXJMRNIPLB2033-35-73 14:05:000.05[facility] FbrlhihWHMNMFUOV2252-23-55 14:05:000.2[facility] DkqiiioZOZJBWRZN8552-51-82 14:05:001.01[facility] UNOEEUKRF9727-38-52 14:05:001.51[facility] FvwbikwPZXXUPNHM5435-69-90 14:05:00 4.590[facility] ReqvyplNKWIPJHIK5040-62-11 09:29:0022[facility] HermannCHEMISTRY 2011-09-14 09:29:00A Line (09/14/2011 04:29:00)[facility] HermannCHEMISTRY 2011-09-14 09:29:0096.0[facility] DmvfliiMFBLULWFR4970-63-80 09:29:00A/C (09/14/2011 04:29:00)[facility] EgbjvzjZFTQTRKIJ0660-63-17 09:29:0037.0[facility] CkaxiobXKDAWQIHK5874-33-15 09:29:97212Rxokitju UokbjbgFHTJYNOGW3611-86-16 09:29:005.0[facility] BhdjcfpCKXMYAUBA3691-68-73 09:29:0040.0[facility] OIVFESMMJ7482-04-14 09:29:0086[facility] HepmyzjMIFSNRIBB7418-55-26 09:29:00-4 [facility] GaboopyCBBBFNAUF3776-63-57 09:29:0038[facility] HermannCHEMISTRY 2011-09-14 09:29:007.36[facility] QwoxuwjJDGFVKERM9851-84-59 09:00:003.3[facility] PftjmejZQLYONCOT7097-38-30 09:00:001.00[facility] YcoljzjWETWFHPZY7104-59-89 09:00:000.98[facility] XkmhideWHJPHAOWW3546-60-17 09:00:004.00[facility] LIFXYVCHI6476-06-10 09:00:003.92[facility] IuvweftJKQBWWHSE4665-07-62 09:00:56890 [facility] DqhhqowHAQXYPQSJ8125-36-03 09:00:000.9[facility] HermannCHEMISTRY 2011-09-14 09:00:0082[facility] IinzpzwOWVWVVWOR6412-87-53 09:00:0035[facility] JhyxgnhKVRNLLBEY8988-28-36 09:00:000.6[facility] YoyhygoEKKJXHMBZ7950-58-59 09:00:0013[facility] VrpbwopCFDFOQDHW5172-82-66 09:00:001.3[facility] QYWBYNFCD5360-06-11 09:00:002.3[facility] LcrnmhiBDNFEZZFJ2913-82-00 09:00:003.0 [facility] JzsggbeIXLDPWSMT6523-00-82 09:00:005.3[facility] HermannCHEMISTRY 2011-09-14 09:00:0054[facility] KvdjyqaPMQUNNBPB4397-36-75 09:00:008[facility] OytvmfsCVLFTMDPAQ1377-84-34 09:00:008.1[facility] QwgkkmyONMMFHFTWD6794-51-61 18:00:00Negative (09/13/2011 13:00:00)[facility] UhvxsrmGFJLPQCKEO4201-43-57 18:00:00 Test Item Value Reference Range Interpretation Comments Pos CO Value (test code = Pos CO 0.403 1 Value) [facility] WvvmnpsJZEUWPKVIE6707-06-59 18:00:00 Test Item Value Reference Range Interpretation Comments Pat Od Value (test code = Pat Od 0.058 1 Value) [facility] NbysaqlMBBXXXQUO3326-45-94 10:45:0060.0[facility] HermannCHEMISTRY 2011-09-13 01:30:003.40[facility] KpuzqlxOHCGHLPZZ0269-76-36 01:30:000.87[facility] EeqfczoOFKJWKKHQ0953-29-89 01:30:000.85[facility] TkvctwuFGAHFLLRR7345-61-90 01:30:003.48[facility] KparcbwDBNMYMIZU7567-04-19 11:03:00N/A (09/12/2011 06:03:00)[facility] EyttxmtECWVQMQNZ8254-52-85 11:03:0012[facility] HermannCHEMISTRY 2011-09-12 11:03:12095Piypopgj NekfjvbNQTAXJDCI6082-18-27 11:03:005.0[facility] AuhtlejIXPOOSGBPC3458-13-65 09:00:00Slight *ABN*(09/12/2011 04:00:00)[facility] AhyifjnNZPWTOLNLD4913-34-42 09:00:00Normal (09/12/2011 04:00:00)[facility] HHDRMQOVS4687-59-27 22:21:0010[facility] QKVJDEV4007-91-28 20:35:00Product available (09/11/2011 15:35:00)[facility] HermannCHEMISTRY 2011-09-11 18:30:0050.7[facility] KgmbldqGFIQXIMQA7907-85-01 18:30:0012[facility] TeoxiqoZWMQZVMLD9819-75-68 18:30:00<10[facility] MrukseuJEJPATELTB6597-19-69 18:30:00<=1.0[facility] FglckbvVQJIRYFAID3487-61-49 18:30:006[facility] IHWWZGJZRW0904-71-67 18:30:00Performed *NA*(09/11/2011 13:30:00)[facility] RTMGEHXIBS4923-13-30 18:30:00Negative *NA*(09/11/2011 13:30:00)[facility] MRTZJIIRUE8375-92-03 18:30:0010 mg/dL *ABN*(09/11/2011 13:30:00)[facility] AGWWBCRNNT9429-64-95 18:30:0030 mg/dL *ABN*(09/11/2011 13:30:00)[facility] IKAJBOFZFQ9356-87-13 18:30:0070 mg/dL *ABN*(09/11/2011 13:30:00)[facility] JCGJSOSQOH8812-01-41 18:30:00Moderate *ABN*(09/11/2011 13:30:00)[facility] AESOWRYSUZ0230-22-29 18:30:00Many /HPF *ABN*(09/11/2011 13:30:00)[facility] BeevilleHqhoynkZOLRVUSANW2744-35-14 18:30:00Few /LPF *NA*(09/11/2011 13:30:00)[facility] OismjreVKHSJXJETZ2793-61-95 18:30:00Moderate *ABN*(09/11/2011 13:30:00)[facility] EvpawdyELQMKUCZHE4759-15-57 18:30:00Negative (09/11/2011 13:30:00)[facility] HiiwjvwEBVQJUQNVU8696-72-46 18:30:00Many /LPF *ABN*(09/11/2011 13:30:00)[facility] KpzjxbkNSWPXEPZOD3609-69-73 18:30:0017[facility] AmxwcvqXDNQKPMORW3992-51-96 18:30:91315Jaofkkwf WfpdlacBEIVZURSIE8261-28-86 18:30:006[facility] DYRVBDKBVW0368-26-56 18:30:00Occasional /HPF *NA*(09/11/2011 13:30:00)[facility] QvcaydgKTGOOIVWSL5922-07-70 18:30:00Yellow *NA*(09/11/2011 13:30:00)[facility] UmihyttSNFGADRSQB3745-42-29 18:30:001.038[facility] UbkfdmsENNLXTCPNL4816-96-25 18:30:00Marked *ABN*(09/11/2011 13:30:00)[facility] UdokpuxYFMZNVGOSU1226-78-46 18:30:005.0[facility] HfvwedeOCAXGGQUO8577-95-08 16:35:006[facility] XXOROVXNH1841-34-58 16:15:001.450[facility] IdpjynqSRIJUMZGT8630-06-52 16:15:00 15.3[facility] HermannBACTERIAL - UPXYGGUC6141-15-10 15:05:00Negative 1(09/11/2011 10:05:00)[facility] PsaznikHCXNIXQQF0463-45-43 14:05:002.0[facility] EYMRNBB7722-65-01 13:26:00Product available (09/11/2011 08:26:00)[facility] WztnzizEBYZVLFHO8316-41-75 11:30:0046[facility] EaozigqGUOXFJXBA4574-36-25 11:30:000.7[facility] HxoymlpECKRUQBVW8503-44-55 11:30:002.0[facility] UGQLLWLJT2773-36-38 11:30:001.6[facility] WysswrqNJYKCJDOD4528-35-74 11:30:0040 [facility] BpokjouZAKLBMVSV2728-39-25 11:30:0012[facility] HermannCHEMISTRY 2011-09-11 11:30:003.1[facility] YmfofzwRXGTUQKFG5249-19-62 11:30:005.1[facility] DpxmutwVTBOPGODI6309-34-20 11:30:007[facility] RtusixxYIAXCSSKE9384-95-86 11:30:00 1.6[facility] FubwcmyBBZGEXAJFT7593-12-59 11:30:00Slight (09/11/2011 06:30:00) [facility] OasgibbGBUMDLELML9684-82-06 11:30:00Slight *ABN*(09/11/2011 06:30:00) [facility] UdlgwpmTDIANUIRKD3428-03-19 11:30:00Slight (09/11/2011 06:30:00) [facility] VpizyhdCTKELAKPYD9349-73-49 11:30:00Normal (09/11/2011 06:30:00) [facility] VQIACKN6554-70-60 05:10:00Negative (09/11/2011 00:10:00)[facility]
[2020-11-30] MEDS ORDERED: LORazepam 2 MG/ML VIAL ONE (17:54)
[2020-11-30] MEDS ORDERED: ONDANSETRON 4 MG/2 ML VIAL ONE ×2 (17:54→20:15)
[2020-11-30 18:40] LABS: Absolute Lymphocytes (CBC) 2.5 K/uL (0.7-4.9); Basophils % 0.6 % (0-1.3); Hematocrit 34.7 % (36.0-45.0); Lymphocytes % 26.7 % (15.3-44.8); MPV 11.1 fL (7.6-11.3); RBC Red Blood Cell Count 3.82 M/uL (3.86-4.86)
[2020-11-30 18:42] LABS: Protime INR 1.19
[2020-11-30 19:02] LABS: ALT/SGPT 19 U/L (12-78); Albumin 3.2 g/dL (3.4-5.0); Alkaline Phosphatase 73 U/L (45-117); BUN Blood Urea Nitrogen 11 mg/dL (7-18); Bicarbonate 27 mmol/L (21-32); Bilirubin Direct 0.3 mg/dL (0-0.2); Bilirubin Total 0.8 mg/dL (0.2-1.0); Glucose Level 81 mg/dL (74-106); Lipase 154 U/L (73-393); NT PRO-BNP 332 pg/mL (<125); Sodium Level 135 mmol/L (136-145); Troponin (Emerg Dept Use Only) < 0.02 ng/mL (0.0-0.045)
[2020-11-30 19:03] LABS: AST/SGOT 37 U/L (15-37); Magnesium 1.6 mg/dL (1.8-2.4); Potassium 2.5 mmol/L (3.5-5.1)
--- NOTE | 2020-11-30 19:09 | RAD REPORT ---
EXAM DESCRIPTION: RAD - Chest Single View - 11/30/2020 6:33 pm CLINICAL HISTORY: CHEST PAIN Chest pain. COMPARISON: CHEST PA AND LAT 2 VIEW dated 03/25/2011; CHEST PA AND LAT 2 VIEW dated 12/17/2003 FINDINGS: Portable technique limits examination quality. The lungs are grossly clear. The heart is upper limit of normal in size. No displaced fractures. IMPRESSION: No acute intrathoracic process suspected.
--- NOTE | 2020-11-30 19:29 | RAD REPORT ---
EXAM DESCRIPTION: CT - Abdomen Pelvis Wo Contrast - 11/30/2020 7:18 pm CLINICAL HISTORY: Abdominal pain. ABD PAIN COMPARISON: No comparisons TECHNIQUE: CT imaging of the abdomen and pelvis was performed without contrast. Solid organ, bowel a nd vascular assessment is limited due to lack of IV and oral contrast. All CT scans are performed using dose optimization technique as appropriate and may include automated exposure control or mA/KV adjustment according to patient size. FINDINGS: The lower lung armstrong are clear.Postsurgical changes affect the proximal stomach. Mild diffuse fatty liver is present. No intra or extrahepatic biliary tree dilatation.The spleen, moran creas, adrenal glands kidneys show no acute process. Cholecystectomy. No bowel obstruction, free air, free fluid or abscess. Postsurgical changes of previous ventral herni a repair noted. Calcified scar tissue is present in the anterior subcutaneous fat. Appendectomy. Post surgical changes are present in small bowel in the lower abdomen. The osseous structures are within normal limits.Fluid collection oblong in shape measuring 12 cm is n oted along the left lateral thigh region, nonspecific. IMPRESSION: No acute intra-abdominal or pelvic findings. Large 12 cm focal fluid collection left thigh region soft tissues is of unclear etiology and signific ance. This may be related to a seroma. Fatty liver infiltration. A limited non-contrast examination was performed as detailed.
[2020-11-30] MEDS ORDERED: NA CHLORIDE 0.9% 100 ML ONE (20:15)
[2020-11-30] MEDS ORDERED: POTASSIUM 25 MEQ EFFERV TAB ONE (20:15)
[2020-11-30] MEDS ORDERED: MORPHINE 4 MG/ML SYR ONE (20:15)
[2020-11-30] MEDS ORDERED: MAGNESIUM SULFATE 1 gm IVPB 1 GM/100 ML BAG IV ONE (20:15)
[2020-11-30] MEDS ORDERED: KCL 20 MEQ/100 mL IVPB 20 MEQ/100 ML BAG IV ONE (20:16)
--- NOTE | 2020-11-30 22:09 | ER ---
Nurse's Notes [facility] Name: Margarita Carl Age: 70 yrs Sex: Female : 1950 Arrival Date: 11/30/2020 Time: 17:14 Bed 13 Private MD: Diagnosis: Chest pain, unspecified;Hypokalemia Presentation: 11/30 17:15 Chief complaint: EMS states: CHEST PAIN RADIATING TO EPIGASTRIC REGION. Coronavirus bp screen: At this time, the client does not indicate any symptoms associated with coronavirus-19. Ebola Screen: No symptoms or risks identified at this time. Initial Sepsis Screen: Does the patient meet any 2 criteria? No. Patient's initial sepsis screen is negative. Does the patient have a suspected source of infection? No. Patient's initial sepsis screen is negative. Risk Assessment: Do you want to hurt yourself or someone else? Patient reports no desire to harm self or others. Onset of symptoms is unknown. 17:15 Method Of Arrival: EMS: [facility] bp 17:15 Acuity: AMENA 2 bp Triage Assessment: 17:17 General: Appears distressed, uncomfortable, obese, Behavior is cooperative, appropriate bp for age, agitated, anxious. Pain: Complains of pain in chest. EENT: No deficits noted. Neuro: Level of Consciousness is awake, alert, obeys commands, Oriented to Appropriate for age. Cardiovascular: Rhythm is sinus rhythm. Respiratory: Airway is patent Respiratory effort is even, Respiratory pattern is regular. GI: Abdomen is obese. : No signs and/or symptoms were reported regarding the genitourinary system. Derm: No deficits noted. Musculoskeletal: No deficits noted. Historical: - Allergies: 17:17 Adhesives; bp 17:17 Demerol; bp - Home Meds: 17:17 aspirin 81 mg Oral chew 1 tab once daily [Active]; bupropion HCl 300 mg Oral Tb24 1 tab bp once daily [Active]; citalopram 40 mg tab 1 tab once daily [Active]; clonazepam 0.5 mg Oral TbDL 1 tab 3 times per day [Active]; gabapentin 300 mg Oral cap 1 cap 4x day [Active]; hydrocodone-acetaminophen 7.5-325 mg Oral tab 1 tab 4x daILY [Active]; lansoprazole 30 mg Oral cpDR 1 cap once daily [Active]; levothyroxine 75 mcg tab 1 tab once daily [Active]; meloxicam 7.5 mg Oral tab 1 tab once daily [Active]; memantine 10 mg Oral tab 1 tab 2 times per day [Active]; Namenda XR 10 mg 2x daily Oral [Active]; tizanidine 4 mg Oral tab 1 tab every 8 hours [Active]; trazodone 100 mg Oral tab 1 tab 2 times per day [Active]; - PMHx: 17:17 Anxiety; Seizures; insomnia; Hypothyroidism; Depression; dementia-early stages; bowel bp obstruction; - Immunization history:: Adult Immunizations up to date. - Social history:: Smoking status: Patient denies any tobacco usage or history of. Screenin:22 Abuse screen: Denies threats or abuse. Denies injuries from another. Nutritional bp screening: No deficits noted. Tuberculosis screening: No symptoms or risk factors identified. Fall Risk None identified. Assessment: 17:22 General: SEE TRIAGE NOTE. bp 19:00 Reassessment: Patient appears in no apparent distress at this time. Patient and/or jb4 family updated on plan of care and expected duration. Pain level reassessed. Patient is alert, oriented x 3, equal unlabored respirations, skin warm/dry/pink. 20:00 Reassessment: Patient appears in no apparent distress at this time. Patient and/or jb4 family updated on plan of care and expected duration. Pain level reassessed. Patient is alert, oriented x 3, equal unlabored respirations, skin warm/dry/pink. 21:30 Reassessment: Patient appears in no apparent distress at this time. Patient and/or jb4 family updated on plan of care and expected duration. Pain level reassessed. Patient is alert, oriented x 3, equal unlabored respirations, skin warm/dry/pink. Vital Signs: 17:15 BP 130 / 74; Pulse 74; Resp 17; Temp 98; Pulse Ox 100% ; bp 17:21 BP 146 / 111; Pulse 70; Resp 16; Temp 97.8; Pulse Ox 100% ; bp 21:51 BP 116 / 62 RA (man/reg); Pulse 73; Resp 18; Pulse Ox 97% on R/A; jb4 ED Course: 17:14 Patient arrived in ED. bp 17:17 Triage completed. bp 17:17 [facility] pm1 17:17 To Holcomb MD is Attending Physician. pm1 17:17 Arm band placed on right wrist. bp 17:22 Patient has correct armband on for positive identification. Bed in low position. Call bp light in reach. Side rails up X2. cracking unit operator on. Pulse ox on. NIBP on. 17:22 Oxygen administration via nasal cannula \T\ 2L/min. bp 17:23 Blair Townsend, SHYANN is Primary Nurse. bp 18:22 Initial lab(s) drawn, by me, sent to lab. Inserted saline lock: 22 gauge in right iw antecubital area, using aseptic technique. Blood collected. 18:33 XRAY Chest (1 view) In Process Unspecified. EDMS 19:18 Abdomen In Process Unspecified. EDMS 20:58 Primary Nurse role handed off by Blair Townsend, RN mw2 Administered Medications: 17:31 Not Given (Physician Discretion): morphine 4 mg IVP once; RASS on ADMIN: Combtv4, Very pm1 Agttd3, Agttd2, Rstlss1, AlertClm0, Drwsy-1, Lt Sdtn-2, Mod Sdtn-3, Dp Sdtn-4, UnArsble-5 18:22 Drug: Zofran (Ondansetron) 4 mg Route: IVP; Site: right antecubital; iw 18:22 Drug: Ativan (LORazepam) 0.5 mg Route: IVP; Site: right antecubital; iw 19:53 Drug: Zofran (Ondansetron) 4 mg Route: IVP; Site: right antecubital; jb4 19:55 Drug: morphine 4 mg Route: IVP; Site: right antecubital; jb4 20:00 Drug: Potassium Chloride 20 mEq Route: IV; Rate: calculated rate; Site: right [facility] antecubital; 20:00 Drug: Magnesium Sulfate 1 grams Route: IVPB; Infused Over: 1 hrs; Site: right [facility] antecubital; 20:10 Drug: Potassium Effervescent Tablet 50 mEq Route: PO; jb4 22:35 Drug: Valium (diazepam) 5 mg Route: PO; jb4 Point of Care Testing: Blood Glucose: 17:21 Blood Glucose: 97 mg/dL; bp Ranges: Outcome: 22:09 Discharge ordered by pm1 22:49 Patient left the ED. jb4 Signatures: Dispatcher [employer] EDMS Heena Romo, RN RN iw Lacho Bain NP SENIOR QUALITY ENGINEER pm1 Alli Carrington RN RN jb4 Blair Townsend RN RN bp Florence Sanchez mw2 Corrections: (The following items were deleted from the chart) 17:19 17:17 PMHx: zbigniew leg pain; bp bp 21:52 21:51 BP 116 / 62; Pulse 73bpm; Resp 18bpm; Pulse Ox 97% RA; jb4 jb4
--- NOTE | 2020-11-30 22:10 | EDPHYS ---
Physician Documentation [facility] Name: Margarita Carl Age: 70 yrs Sex: Female : 1950 Arrival Date: 11/30/2020 Time: 17:14 Bed 13 Private MD: LU Physician To Holcomb HPI: 11/30 17:23 This 70 yrs old Female presents to ER via EMS with complaints of Chest Pain. pm1 17:23 The patient or guardian reports chest pain that is located primarily in the epigastric pm1 area. 17:23 Onset: yesterday. The pain radiates to from chest to epigastric area. Associated signs pm1 and symptoms: Pertinent positives: nausea, Pertinent negatives: cough, shortness of breath, Diarrhea. The chest pain is described as aching. Duration: The patient or guardian reports a single episode. Modifying factors: The symptoms are alleviated by nothing. the symptoms are aggravated by nothing. Severity of pain: in the emergency department the pain is unchanged. The patient has been recently seen by a physician: with different complaint(s), Patient was recently discharged from another hospital for covid pneumonia. Discharged home with O2. Historical: - Allergies: 17:17 Adhesives; bp 17:17 Demerol; bp - Home Meds: 17:17 aspirin 81 mg Oral chew 1 tab once daily [Active]; bupropion HCl 300 mg Oral Tb24 1 tab bp once daily [Active]; citalopram 40 mg tab 1 tab once daily [Active]; clonazepam 0.5 mg Oral TbDL 1 tab 3 times per day [Active]; gabapentin 300 mg Oral cap 1 cap 4x day [Active]; hydrocodone-acetaminophen 7.5-325 mg Oral tab 1 tab 4x daILY [Active]; lansoprazole 30 mg Oral cpDR 1 cap once daily [Active]; levothyroxine 75 mcg tab 1 tab once daily [Active]; meloxicam 7.5 mg Oral tab 1 tab once daily [Active]; memantine 10 mg Oral tab 1 tab 2 times per day [Active]; Namenda XR 10 mg 2x daily Oral [Active]; tizanidine 4 mg Oral tab 1 tab every 8 hours [Active]; trazodone 100 mg Oral tab 1 tab 2 times per day [Active]; - PMHx: 17:17 Anxiety; Seizures; insomnia; Hypothyroidism; Depression; dementia-early stages; bowel bp obstruction; - Immunization history:: Adult Immunizations up to date. - Social history:: Smoking status: Patient denies any tobacco usage or history of. ROS: 17:23 Constitutional: Negative for fever, chills, and weight loss, Eyes: Negative for injury, pm1 pain, redness, and discharge, ENT: Negative for injury, pain, and discharge, Neck: Negative for injury, pain, and swelling. 17:23 Respiratory: Negative for shortness of breath, cough, wheezing, and pleuritic chest pain. 17:23 Back: Negative for injury and pain, : Negative for injury, bleeding, discharge, and swelling, MS/Extremity: Negative for injury and deformity, Skin: Negative for injury, rash, and discoloration, Neuro: Negative for headache, weakness, numbness, tingling, and seizure. 17:23 Cardiovascular: Positive for chest pain, Negative for edema, palpitations. 17:23 Abdomen/GI: Positive for nausea, Negative for abdominal pain, vomiting, diarrhea. Exam: 17:23 Constitutional: This is a well developed, well nourished patient who is awake, alert, pm1 and in no acute distress. Head/Face: Normocephalic, atraumatic. 17:23 Chest/axilla: Normal chest wall appearance and motion. Nontender with no deformity. No lesions are appreciated. 17:23 Back: No spinal tenderness. No costovertebral tenderness. Full range of motion. Skin: Warm, dry with normal turgor. Normal color with no rashes, no lesions, and no evidence of cellulitis. MS/ Extremity: Pulses equal, no cyanosis. Neurovascular intact. Full, normal range of motion. 17:23 Eyes: Exam is negative for acute changes, Extraocular movements: no acute changes, Conjunctiva: no acute changes, no injection, Sclera: no acute changes, icterus, is not appreciated. 17:23 Cardiovascular: Exam negative for acute changes, Rate: normal, Rhythm: regular, Pulses: no pulse deficits are appreciated, Heart sounds: normal, normal S1and S2. 17:23 Respiratory: Exam negative for acute changes, respiratory distress, shortness of breath, Breath sounds: are clear throughout. 17:23 Abdomen/GI: Inspection: obese Palpation: abdomen is soft and non-tender, in all quadrants. 17:23 Neuro: Exam negative for acute changes, Orientation: is normal, Mentation: is normal, Motor: is normal, moves all fours. Vital Signs: 17:15 BP 130 / 74; Pulse 74; Resp 17; Temp 98; Pulse Ox 100% ; bp 17:21 BP 146 / 111; Pulse 70; Resp 16; Temp 97.8; Pulse Ox 100% ; bp 21:51 BP 116 / 62 RA (man/reg); Pulse 73; Resp 18; Pulse Ox 97% on R/A; jb4 MDM: 17:22 Patient medically screened. pm1 22:07 Data reviewed: vital signs. Data interpreted: Pulse oximetry: on room air is 97 %. pm1 Interpretation: normal. 22:08 Counseling: I had a detailed discussion with the patient and/or guardian regarding: the pm1 historical points, exam findings, and any diagnostic results supporting the discharge/admit diagnosis, lab results, radiology results, the need for outpatient follow up, to return to the emergency department if symptoms worsen or persist or if there are any questions or concerns that arise at home. 22:27 ED course: Patient has appointment tomorrow with Dr. Mcgraw, psychiatrist, tomorrow pm1 for her anxiety. Will give the patient Valium here so that she will be able to make her appointment tomorrow. 11/30 17:23 Order name: Basic Metabolic Panel pm1 11/30 17:23 Order name: CBC with Diff; Complete Time: 19:07 pm1 11/30 17:23 Order name: LFT's; Complete Time: 19:07 pm1 11/30 17:23 Order name: Magnesium; Complete Time: 19:07 pm11/30 17:23 Order name: NT PRO-BNP; Complete Time: 19:07 pm1 11/30 17:23 Order name: PT-INR; Complete Time: 19:07 pm1 11/30 17:23 Order name: Troponin (emerg Dept Use Only); Complete Time: 19:07 pm1 11/30 17:23 Order name: XRAY Chest (1 view); Complete Time: 19:17 pm1 11/30 17:23 Order name: Lipase; Complete Time: 19:07 pm1 11/30 17:23 Order name: Basic Metabolic Panel; Complete Time: 19:07 EDMS 11/30 17:25 Order name: Glucose, Ancillary Testing; Complete Time: 18:34 EDMS 11/30 20:27 Order name: SARS-COV-2 RT PCR; Complete Time: 20:28 EDMS 11/30 17:23 Order name: EKG; Complete Time: 17:23 pm1 11/30 17:23 Order name: Cardiac monitoring; Complete Time: 18:38 pm1 11/30 17:23 Order name: EKG - Nurse/Tech; Complete Time: 19:30 pm1 11/30 17:23 Order name: IV Saline Lock; Complete Time: 18:38 pm1 11/30 17:23 Order name: Labs collected and sent; Complete Time: 18:38 pm1 11/30 17:23 Order name: O2 Per Protocol; Complete Time: 17:24 pm1 11/30 19:12 Order name: Abdomen ; Complete Time: 19:36 EDMS 11/30 17:23 Order name: O2 Sat Monitoring; Complete Time: 17:24 pm1 Administered Medications: 17:31 Not Given (Physician Discretion): morphine 4 mg IVP once; RASS on ADMIN: Combtv4, Very pm1 Agttd3, Agttd2, Rstlss1, AlertClm0, Drwsy-1, Lt Sdtn-2, Mod Sdtn-3, Dp Sdtn-4, UnArsble-5 18:22 Drug: Zofran (Ondansetron) 4 mg Route: IVP; Site: right antecubital; iw 18:22 Drug: Ativan (LORazepam) 0.5 mg Route: IVP; Site: right antecubital; iw 19:53 Drug: Zofran (Ondansetron) 4 mg Route: IVP; Site: right antecubital; jb4 19:55 Drug: morphine 4 mg Route: IVP; Site: right antecubital; jb4 20:00 Drug: Potassium Chloride 20 mEq Route: IV; Rate: calculated rate; Site: right jb4 antecubital; 20:00 Drug: Magnesium Sulfate 1 grams Route: IVPB; Infused Over: 1 hrs; Site: right jb4 antecubital; 20:10 Drug: Potassium Effervescent Tablet 50 mEq Route: PO; jb4 22:35 Drug: Valium (diazepam) 5 mg Route: PO; jb4 Point of Care Testing: Blood Glucose: 17:21 Blood Glucose: 97 mg/dL; bp Ranges: Critical Glucose Levels:Adult <50 mg/dl or >400 mg/dl <40 mg/dl or >180 mg/dl Disposition: 12/01 18:50 Co-signature as Attending Physician, To Holcomb MD I agree with the assessment and wil plan of care. Disposition Summary: 11/30/20 22:09 Discharge Ordered Location: Home pm1 Problem: new pm1 Symptoms: have improved pm1 Condition: Stable pm1 Diagnosis - Chest pain, unspecified pm1 - Hypokalemia pm1 Followup: pm1 - With: Emergency Department - When: As needed - Reason: Worsening of condition Followup: pm1 - With: Private Physician - When: 2 - 3 days - Reason: Recheck today's complaints, Continuance of care, Re-evaluation by your physician Discharge Instructions: - Discharge Summary Sheet pm1 - Nonspecific Chest Pain, Adult pm1 - Potassium Content of Foods pm1 - Hypokalemia pm1 Forms: - Medication Reconciliation Form pm1 - Thank You Letter pm1 - Antibiotic Education pm1 - Prescription Opioid Use pm1 Signatures: Dispatcher [employer] EDMS To Holcomb MD MD cha Williams, Irene, RN SHYANN iw Lacho Bain NP DIRECTOR CLIENT SERVICES pm1 Alli Carrington RN RN jbBlair Corey RN RN bp Corrections: (The following items were deleted from the chart) 11/30 17:19 17:17 PMHx: zbigniew leg pain; bp bp 19:12 17:24 Abdomen Pelvis W Con+CT.RAD.BRZ ordered. EDMS EDMS 19:20 17:25 CORONAVIRUS+MR.LAB.BRZ ordered. EDMS EDMS
[2020-11-30] MEDS ORDERED: DIAZEPAM 5 MG TABLET ONE (22:49)
[2020-11-30 22:56] VITALS: TEMP 97.8
[2020-11-30 22:57] VITALS: BP 116/62; O2SAT 97
--- NOTE | 2020-12-01 16:11 | EKG ---
Test Date: 2020-11-30 Test Time: 18:37:25 [address] [employer] Helper: BARBARA MEASUREMENT RESULTS: Intervals: Rate: 69 IN: 144 QRSD: 98 QT: 500 QTc: 535 [place]: P: 10 IN: 144 QRS: -23 T: 16 INTERPRETIVE STATEMENTS: Undetermined rhythm Nonspecific ST and T wave abnormality Abnormal ECG Compared to ECG 10/17/2018 13:37:22 Atrial fibrillation no longer present ST (T wave) deviation still present Electronically Signed On 12-01-20 16:08:36 CDT by Guevara Peter
== END 2020-11-30 22:49 | disposition home or self-care (01) ==
LOC: ER 17:09
DX: E87.6 Hypokalemia (principal); F41.9 Anxiety disorder, unspecified; E03.9 Hypothyroidism, unspecified; Z79.82 Long term (current) use of aspirin; Z88.5 Allergy status to narcotic agent; Z20.822 Contact with and (suspected) exposure to COVID-19; Z86.16 Personal history of COVID-19; Z91.048 Other nonmedicinal substance allergy status
CPT/HCPCS: 93005; 85025; 80048; 36415; 83735; 85610; 82947; 80076; 84484; 83690; 83880; 74176; 71045; 96375; 96374; 99285; U0003; J3480; J3475; J2405 ×2

== ENCOUNTER 2020-12-01 14:32 | Emergency (ER) | payer OTHER ==
--- OUTSIDE RECORDS SUMMARY | 2020-12-01 15:18 | XMS REPORT | Continuity of Care Document ---
:1950 Author Organization [facility] t Address [address] [place] [address] Care Team Providers Name Role Phone Shahbaz [...] Attending Clinician Unavailable Tyler Mcknight Attending Clinician Nichelle SAGE L Admitting Clinician Tyler Mcknight Admitting Clinician Problems Condition Condition Condition Status Onset Resolution Last Treating Co mments Source Name Details Category Date Date Treatment Clinician Date SBO Diagnosis Active 2016-01-25 Mem oria 01-02 10:25:00 l SBO 00:00: [place] 00 Active 01/03/2016 [facility] DECONDITIO Diagnosis Active 2013-06-28 Memoria DARIAN 1- 21:58:00 l 00:00: [place] DECONDITIO 00 DARIAN Active 05/31/2013 [facility] ABDOMINAL Diagnosis Active 2013-06-27 Memoria PAIN, 1-02 09:06:00 l HERNIA 00:00: [place] ABDOMINAL 00 PAIN, HERNIA Active 05/30/2013 [facility] Atrial Problem Active 2016-01-07 Memor ia fibrillati 09-13 02:09:23 l on Atrial 00:00: Javier (disorder) fibrillati 00 on (disorder) Active 09/14/2011 Problem 01/07/2016 [facility], [facility] AF - Problem Active 2011-09-23 Memor ia Atrial 09-13 08:25:12 l fibrillati AF - 00:00: Odell n on Atrial 00 fibrillati on Active 2 Problem 2 [facility] Central Problem Active 2016-01-07 Yosi brittanie venous 09-10 02:09:23 l cannula Central 00:00: Odell n insertion venous 00 (procedure cannula ) insertion (procedure ) Active 09/11/2011 Problem 01/07/2016 [facility], [facility] Insertion Problem Active 2016-01-07 Me moria of 09-10 02:09:23 l endotrache 00:00: Odell n al tube Insertion 00 (procedure of ) endotrache al tube (procedure ) Active 09/11/2011 Problem 01/07/2016 [facility] Central Problem Active 2011-09-23 Yosi brittanie line 09-10 08:25:12 l insertion Central 00:00: Herm coretta line 00 insertion Active 09/11/2011 Problem 09/23/2011 [facility] Endotrache Problem Active 2011-09-23 M emoria al 09-10 08:25:12 l intubation 00:00: Odell n Endotrache 00 al intubation Active 09/11/2011 Problem 09/23/2011 [facility] [D]Abdomin Problem Active 2016-01-07 M emoria al pain 09-09 02:09:23 l (context-d 00:00: Odell n ependent [D]Abdomin 00 category) al pain (context-d ependent category) Active 09/10/2011 Problem 01/07/2016 [facility] Low blood Problem Active 2016-01-07 Me moria pressure 4-14 02:09:23 l (disorder) Low 00:00: Odell n blood 00 pressure (disorder) Active 09/10/2011 Problem 01/07/2016 [facility], [facility] [D]Abdomin Problem Active 2011-09-23 M emoria al pain 4-14 08:25:12 l 00:00: [place] [D]Abdomin 00 al pain Active 09/10/2011 Problem 09/23/2011 [facility] Low blood Problem Active 2011-09-23 Me moria pressure 4-14 08:25:12 l Low 00:00: Javier blood 00 pressure Active 09/10/2011 Problem 09/23/2011 [facility] Hernia Problem Active 2016-01-07 Memor ia repair 4-13 02:09:23 l (procedure Hernia 00:00: Herm coretta ) repair 00 (procedure ) Active 09/09/2011 Problem 01/07/2016 [facility] Lysis of Problem Active 2016-01-07 Mem oria adhesions 4-13 02:09:23 l (procedure Lysis of 00:00: He rmann ) adhesions 00 (procedure ) Active 09/09/2011 Problem 01/07/2016 [facility] Panniculec Problem Active 2016-01-07 M emoria aditya 4-13 02:09:23 l (procedure 00:00: Odell n ) Panniculec 00 aditya (procedure ) Active 09/09/2011 Problem 01/07/2016 [facility] Recurrent Problem Active 2016-01-07 Me moria incisional 4- 02:09:23 l hernia of 00:00: Javier anterior Recurrent 00 abdominal incisional wall hernia of (disorder) anterior abdominal wall (disorder) Active 09/09/2011 Problem 01/07/2016 [facility] Hernia Problem Active 2011-09-23 Memor ia repair 4-13 08:25:12 l Hernia 00:00: Javier repair 00 Active 09/09/2011 Problem 09/23/2011 [facility] Lysis of Problem Active 2011-09-23 Mem oria adhesions 4-13 08:25:12 l Lysis of 00:00: Odell n adhesions 00 Active 09/09/2011 Problem 09/23/2011 [facility] Panniculec Problem Active 2011-09-23 Shelton segura aditya 09-08 08:25:12 l 00:00: Javier Panniculec 00 aditya Active 09/09/2011 Problem 09/23/2011 [facility] Recurrent Problem Active 2011-09-23 Me moria ventral 09-08 08:25:12 l hernia 00:00: Javier Recurrent 00 ventral hernia Active 09/09/2011 Problem 09/23/2011 [facility] INCISIONAL Diagnosis Active 2011-09-28 Memoria HERNIA 08-25 21:46:00 l 553.21 00:00: Javier /[id number] INCISIONAL 00 HERNIA 553.21 /92128 Active 08/26/2011 [facility] [id number] Diagnosis Active 2011-10-19 Memoria .06-24 16:19:00 l 00:00: Javier 789.06/787 00 .01 Active 06/24/2011 [facility] Mixed Mixed Diagnosis Active [facility] incontin[facility] incontinen Rbie kes - ce urge ce urge Memoria and stress and stress [facility] Primary Primary Problem Active [facility] osteoarthr osteoarthr Brie kes - itis of itis of Memoria left knee left knee [facility] Urge Urge Problem Active [facility] incontinen incontinen Brie kes - ce of ce of Memoria urine urine l [facility]ics Primary Primary Problem Active [facility] osteoarthr osteoarthr Brie kes - itis of itis of Memoria right knee right knee l [facility] Depression Problem Resolve 2016-01-07 Memoria - motion d 02:09:23 l (qualifier Odell n value) Depression - motion (qualifier value) Resolved Problem 01/07/2016 [facility] Hypothyroi Problem Resolve 2016-01-07 Memoria dism d 02:09:23 l (disorder) Odell crockett Hypothyroi dism (disorder) Resolved Problem 01/07/2016 [facility] Small Problem Resolve 2016-01-07 Yosi brittanie bowel d 02:09:23 l obstructio Small Amy nn n bowel (disorder) obstructio n (disorder) Resolved Problem 01/07/2016 [facility] Cholecyste Problem Active 2016-01-07 M emoria ctomy 02:09:23 l (procedure Odell n ) Cholecyste ctomy (procedure ) Active Problem 01/07/2016 [facility] Stapling Problem Active 2016-01-07 Mem oria of stomach 02:09:23 l (procedure Stapling He rmann ) of stomach (procedure ) Active Problem 01/07/2016 [facility] Hypertensi Problem Active 2016-01-07 M emoria ve 02:09:23 l disorder, [place] systemic Hypertensi arterial ve (disorder) disorder, systemic arterial (disorder) Active Problem 01/07/2016 [facility] 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 02:09:23 l n Javier (disorder) Idiopathic hypotensio n (disorder) Active Problem 01/07/2016 [facility] Peptic Problem Active 2016-01-07 Memor ia ulcer 02:09:23 l (disorder) Peptic Herm coretta ulcer (disorder) Active Problem 01/07/2016 [facility] Cholecyste Problem Active 2011-09-23 M emoria ctomy 08:25:12 l Javier Cholecyste ctomy Active Problem 09/23/2011 [facility] Gastric Problem Active 2011-09-23 Yosi brittanie stapling 08:25:12 l Gastric Javier stapling Active Problem 09/23/2011 [facility] HTN - Problem Active 2011-09-23 Memor ia Hypertensi 08:25:12 l on HTN - Javier Hypertensi on Active Problem 2 [facility] Idiopathic Problem Active 2011-09-23 M emoria hypotensio 08:25:12 l n [place] Idiopathic hypotensio n Active Problem 09/23/2011 [facility] PUD - Problem Active 2011-09-23 Memor ia Peptic 08:25:12 l ulcer PUD - [place] disease Peptic ulcer disease Active Problem 09/23/2011 [facility] INCISIONAL Diagnosis Active 2011-09-28 Memoria HERNIA 21:46:00 l Javier INCISIONAL HERNIA Active [facility] VENTRAL Diagnosis Active 2013-06-27 Me moria HERNIA NOS 09:06:00 l VENTRAL Javier HERNIA NOS Active [facility] PAIN IN Diagnosis Active 2013-06-28 Me moria LIMB 21:58:00 l PAIN IN [place] LIMB Active [place] ILLNESS, Diagnosis Active 2016-01-25 M emoria UNSPECIFIE 10:25:00 l D ILLNESS, Odell n UNSPECIFIE D Active [facility] Primary Primary Problem Active Univers localized localized HL7.CCDAR2 ity of osteoarthr osteoarthr [place] it[place] of [facility] of Physici left knee left knee ans Acute pain Acute pain Problem Active U nivers of right of right HL7.CCDAR2 it y of knee knee [place] Phys[facility] ans Thyroid Thyroid Problem Active Univers [...] Physici depression depression an s type type Allergies, Adverse Reactions, Alerts Allergy Allergy Status Severity Reaction(s) Onset Inactive Treating Comm ents Source Name Type Date Date Clinician Lyla Propensi Active [facility]09 [facility] adverse 00:[facility]: Medical reaction 00 [place] s Adhesive Propensi Active Not [facility] Tape ty to 02-09 allergic [facility] - adverse 00:00: to paper Medical reaction 00 tape. [facility] Adhesive Adverse Active Info Not [facility] 1"x6yd Reaction Available [facility] Demerol Adverse Active Info Not [facility] Reaction Available [facility] pig Adverse Active Info Not [facility] tails Reaction Available [facility] haldol Adverse Active Info Not [facility] Reaction Available [facility] Demerol drug Active Univers TABS allergy [facility] [place] [facility] Haldol drug Active [facility] allergy [facility] [place] [facility] Tape allergy Active Univers to ity of [facility] ans Adhesive Adhesive Active MO^Modera Mem oria Tape Tape te l Javier Demerol Demerol Active Memoria HCl HCl l [place] NKFA NKFA Active Memoria l [place] Social History Social Habit Start Date Stop Date Quantity Comments Source Sex Assigned At [facility] Tobacco use and 2017-02-09 2017-02-09 Never used [facility] kes - exposure 00:00:00 00:00:00 [facility] Alcohol intake 2017-02-09 2017-02-09 Current [facility] es - 00:00:00 00:00:00 non-drinker of [facility] alcohol (finding) Social History 2016-01-03 2016-01-03 [facility] 08:10:47 08:10:47 Smoking Status Start Date Stop Date Source Never smoker [facility] edical [place] Medications Ordered Filled Start Stop Current Ordering [...] tablet 46 daily. Center gabapentin Yes 300mg [id number] Take [address] [facility] (NEURONTIN) 9-14 [id number] mg by L ukes - 300 MG [...] as needed for Pain. TiZANidine Yes 4mg [id number] Take [address] [facility] (ZANAFLEX) 9-14 [id number] by mouth 3 [facility] - 4 MG [...] oria 01-04 cap, l 14:00: Route: PO, [place] 00 Drug form: CAP, Daily, Dosing Weight 105.625, kg, Start date: 01/05/16 9:00:00 CDT, Duration: 30 day, Stop date: 02/03/16 9:00:00 CDT Synthroid No Notes: Memori a - Take 1 l 14:00: hour Javier 00 before or 2 hours after meal; Enteral feeds may interefere with the absorption of this medication .(Same as:Levothr oid, Synthroid) Bupropion No 150 mg, 1 Mem oria 8- tab, l 14:00: Route: PO, [place] 00 Drug form: ERTAB, Daily, Dosing Weight [...] brittanie 01-03 tab, l 20:49: Route: PO, Javier Drug form: ECTAB, Daily, Dosing Weight 105.625, kg, PRN Constipati on, Start date: 01/04/16 15:49:00 CDT, Duration: 30 day, Stop date: 02/03/16 15:48:00 CDT Clonazepam No Notes: Memor ia 01-03 (Same As: l 14:00: KlonoPIN) Tylenol No Notes: Max Yosi brittanie 8-08 acetaminop l 07:51: hen = [place] 4000mg/day (4 gm/day). (Same as: Tylenol) Tylenol No Notes: Do Memor ia 8-08 not exceed l 03:02: 4 gm/day. Javier 00 (Same as: Tylenol) Benadryl No Notes: Memoria - (Same as: l 02:02: Benadryl) Javier phenol No Notes: Memoria 01-03 Chlorasept l 01:57: ic [place] Javier 00 (Same as: Chlorasept ic, Sore Throat [place]) WASTE: F/P - Black; E - Municipal [...] 01-02 (Same as: l Flush 18:57: BD [place] 00 Posiflush) BD Normal No Notes: Memori a Saline 01-02 (Same as: l Flush 18:56: BD [place] Posiflush) Saline No 10 mL, Memoria Flush 0.9% 01-02 Route: l 18:52: IVP, Drug Javier Form: INJ, Dosing Weight 105.625, kg, PRN, PRN Line Flush, Start date: 01/03/16 13:52:00 CDT, Duration: 30 day, Stop date: 02/02/16 13:51:00 CDT BD Normal No Notes: Memori a Saline 01-02 (Same as: l Flush 18:35: BD [place] Posiflush) Sodium No 25 mL, Memoria Chloride 01-02 Route: l 0.9% IV 18:35: IVP, Start Herm coretta date: 01/03/16 13:35:00 CDT, Duration: 30 day, Stop date: 02/02/16 13:34:00 CDT, PRN Line Flush D5W 1/2NS + No Notes: Yosi brittanie KCL 20mEq/L 01-02 PREMIX IV l 1000ml 18:31: - Do Not [place] (Premix) 00 Alter 1,000 mL WASTE: F/P - Sink; E - Municipal Trash Bin Saline No 10 mL, Memoria Flush 0.9% 01-02 Route: l 18:30: IVP, Drug Javier Form: INJ, Dosing Weight 105.625, kg, PRN, PRN Line Flush, Start date: 01/03/16 13:30:00 CDT, Duration: 30 day, Stop date: 02/02/16 13:29:00 CDT Morphine No Notes: Memoria 01-02 (Same l 18:26: as:MORPhin [place] 00 e Sulfate) Pepcid No Notes: Memoria 01-02 (Same as: l 14:00: Pepcid) Javier 00 Can be dilute in 5-10cc NS IVP: Slow IV push over at least 2 minutes. Protonix No 40 mg, Memoria 01-02 Route: l 14:00: IVP, Javier 00 Daily, Dosing Weight 105.625, kg, Patient is NPO, Start date: 01/03/16 9:00:00 CDT, Duration: 30 day, Stop date: 02/01/16 9:00:00 CDT Enoxaparin No Notes: Memor ia 01-02 (Same as: l 09:00: Lovenox) [place] 00 Citalopram Yes 60 mg, PO, M emoria 8-07 Daily, 0 l 08:55: Refill(s) [place] 00 tolterodine Yes 4 mg = 1 Me moria 4 mg oral 8-07 cap, PO, l capsule, 08:55: Daily, # Amy nn extended 00 30 cap, 1 release Refill(s) gabapentin Yes 300 mg = 1 M emoria 300 MG Oral 8-07 cap, PO, l Capsule 08:55: QID, 0 Javier 00 Refill(s) Hydroxyzine Yes 25 mg = [...] tab, PO, l tablet 08:55: Daily, # [place] 00 30 tab, 0 Refill(s) Acetaminoph No [...] ia 07 PO, 0 l 08:55: Refill(s) [place] 00 clonazePAM No 0.5 mg = 1 M emoria 0.5 mg oral 07 tab, PO, l tablet 08:55: Q6H, PRN Javier 00 Anxiety, 0 Refill(s) Saline No Notes: Memoria Flush 0.9% 01-02 (Same as: l 08:12: BD Javier 00 Posiflush) Ondansetron No Notes: Yosi brittanie 01-02 (Same as: l 08:12: Zofran) Javier 00 MEDICATION WASTE Product Size: 4 mg Product Wasted: ___ mg Morphine No Notes: Memoria 8-07 (Same l 08:12: as:MORPhin Javier 00 e Sulfate) Sodium No 1,000 mL, Memori a Chloride 01-02 Rate: 125 l 0.154 08:12: ml/hr, [place] MEQ/ML 00 Infuse Injectable over: 8 Solution hr, Route: IV, Dosing Weight 105.625 kg, Total Volume: 1,000, Start date: 01/03/16 3:12:00 CDT, Duration: 30 day, Stop date: 02/02/16 3:11:00 CDT Lidoderm 5% Yes Surainder 1 patch, Memoria topical 1-23 K Ajmani TOP, l film 15:46: Daily, [place] (patch) 00 Remove after 12 hours, # [...] Anigbogu TOP, l hr 14:19: Daily, # [place] transdermal 00 30 patch, film, 0 extended Refill(s) release mirtazapine Yes Cyndi Canales 7.5 mg = Memoria 15 mg oral -23 Anigbogu 0.5 tab, l tablet 14:19: PO, [place] 00 Bedtime, # 30 tab, 0 Refill(s) Exelon No Dawson 4.6 mg, 1 Memor ia 1-20 Tomas patch, l 15:00: ichcinthia Route: [place] 00 TOP, Drug form: ERFILM, Daily, Start date: 06/17/13 9:00:00, Duration: 30 day, Stop date: 07/16/13 9:00:00Sam e as Exelon "Remove old patch before applicatio n of new patch" Lidoderm 5% No Cyndi Parker 1 patch, Memoria topical 1-20 Anigbogu Route: l film 15:00: TOP, [place] (patch) 00 Daily, Drug form: FILM, Start [...] Anigbogu inhalation l mg/inh 15:00: , Route: [place] spray 00 NASAL, Drug Form: SPRY, BID, Start date: 06/14/13 9:00:00, Duration: 30 day, Stop date: 07/13/13 17:00:00(S nereida as: Flonase) Claritin No Cyndi Parker 10 mg, 1 Memoria 1-17 [place] tab, l 15:00: Route: PO, Javier 00 Drug form: TAB, Daily, Start date: 06/14/13 9:00:00, Duration: 30 day, Stop date: 07/13/13 9:00:001 hr before meals (Same as: Claritin) polyethylen No Cyndi Parker 17 gm, 1 Memoria e glycol 17 Anigbogu pkt, l 3350 15:00: Route: PO, [place] 00 Drug form: PWDR, Daily, Dosing Weight 105.455, kg, Start date: 06/14/13 9:00:00, Duration: 30 day, Stop date: 07/13/13 9:00:00Dis solve in 8 oz of water or juice. (Same as: Miralax) Senokot No Cyndi Parker 8.6 mg, 1 Memoria 06-14 [place] tab, l 15:00: Route: PO, [place] 00 Drug form: TAB, BID, Start date: [...] Shaina 06-14 [place] lozenge, l 14:00: Route: [place] 00 MUCOUS MEM, Drug form: WINSTON, TID, Start date: 06/14/13 8:00:00, Duration: 30 day, Stop date: 07/13/13 21:00:00(S nereida As: Mycelex Shaina) Levothroid No Cyndi Parker 50 M emoria -17 [place] microgram, l 12:30: 1 tab, Javier 00 Route: PO, Drug [...] Route: Javier 00 IVPB, Drug form: SOLN, [id number], Start date: 06/14/13 3:00:00, Duration: 30 day, Stop date: 07/13/13 18:00:00Sa me as: Vancocin Lovenox No Cynid Parker 40 mg, 0.4 Memoria 1-17 [place] mL, Route: l 05:00: SUB-Q, Javier 00 Drug form: INJ, [id number], Start date: 06/13/13 23:00:00, Duration: 30 day, Stop date: 07/12/13 23:00:00(S nereida as: Lovenox) Restoril No Cyndi Parker 15 mg, 1 Memoria 1-17 [place] cap, l 03:37: Route: PO, [place] 00 Drug form: CAP, Bedtime, PRN Sleep, Start date: 06/13/13 21:37:00, Duration: 30 day, Stop date: 07/13/13 21:36:00(S nereida As: Restoril) Ativan No Cyndi Parker 1 mg, 2 Me moria 1-17 [place] tab, l 03:31: Route: PO, [place] 00 Drug form: TAB, Q4H, PRN Anxiety, [...] day, Stop date: 07/13/13 21:00:00(S nereida as: [place] 325/5) Do not exceed 4gm/day of acetaminop hen. acetaminoph No Cyndi Parker 650 mg, 2 Memoria en -17 [place] tab, l 03:01: Route: PO, [place] 00 Drug form: TAB, Q4H, Dosing Weight [...] Memoria -17 Anigbogu supp, l 03:01: Route: DC, [place] 00 Drug form: SUPP, Bedtime, Dosing Weight [...] IV, l intravenous 23:55: Q24H, # 14 [place] injection 00 bag, 0 Refill(s), called to [...] tab, PO, l tablet 23:55: Daily, # [place] 00 20 tab, 0 Refill(s) fluticasone Yes Surainder 100 M emoria nasal 0.05 1-16 K Ajmani microgram l mg/inh 23:55: = 2 [place] spray 00 inhalation , NASAL, BID, # 1 ea, 0 Refill(s) enoxaparin Yes Surainder 40 mg = Memoria 40 mg/0.4 1-16 K Ajmani 0.4 mL, l mL 23:55: SUB-Q, [place] subcutaneou 00 Q24H, # 30 s solution mL, 0 Refill(s) clotrimazol Yes Surainder 10 mg = 1 Memoria e 10 mg 1-16 K Ajmani lozenge, l oral 23:55: MUCOUS Javier lozenge 00 MEM, TID, # 90 lozenge, 0 Refill(s) clonazePAM Yes Surainder 0.5 mg = 1 Memoria 0.5 mg oral 1-16 K Ajmani tab, PO, l tablet 23:55: Daily, # Javier 00 30 tab, 0 Refill(s), called to pharmacy acetaminoph Yes Surainder 650 mg = 2 Memoria en 325 mg 1-16 K Ajmani tab, PO, l oral tablet 23:55: Q6H, Pain, [place] 00 # 50 tab, 0 Refill(s), called [...] K Ajmani mL, Route: l 05:00: SUB-Q, [place] 00 Drug form: INJ, Q24H, Start date: 06/11/13 23:00:00, Duration: 30 day, Stop date: 07/10/13 23:00:00(S nereida as: Lovenox) acetaminoph No Surainder 1 tab, Memoria en-hydrocod 1-15 K Ajmani Route: PO, l one 325 00:45: Drug Form: Herm coretta mg-5 mg 00 TAB, oral tablet ONCALL, PRN Pain, Start date: 06/11/13 18:45:00, Duration: 30 day, Stop date: 07/11/13 18:44:00(S nereida as: [place] 325/5) Do not exceed 4gm/day of acetaminop hen. Claritin No Surainder 10 mg, 1 Memoria 1-14 K Ajmani tab, l 15:00: Route: PO, [place] 00 Drug form: TAB, Daily, Start date: 06/11/13 9:00:00, Duration: 30 day, Stop date: 07/10/13 9:00:001 hr before meals (Same as: Claritin) Senokot No Surainder 8.6 mg, 1 Memoria 1-14 K Ajmani tab, l 15:00: Route: PO, [place] 00 Drug form: TAB, BID, Start date: 06/11/13 9:00:00, Duration: 30 day, Stop date: 07/10/13 17:00:00(S nereida as: Senokot) Mycelex No Surainder 10 mg, 1 M emoria Shaina 1-14 K Ajmani lozenge, l 03:00: Route: Javier 00 MUCOUS MEM, Drug form: WINSTON, TID, Start date: 06/10/13 21:00:00, Duration: 30 day, Stop date: 07/10/13 12:00:00(S nereida As: Mycelex Shaina) Singulair No Surainder 10 mg, 1 Memoria 1-14 K Ajmani tab, l 03:00: Route: PO, Javier 00 [...] exceed 4gm/day of acetaminop hen. (Same as: [place] 325/10) Ativan No Surainder 1 mg, 1 Mem oria 1-14 K Ajmani tab, l 02:32: Route: PO, [place] 00 Drug form: TAB, Q4H, PRN Anxiety, [...] Ajmani inhalation l mg/inh 15:00: , Route: [place] spray 00 NASAL, Drug Form: SPRY, BID, [...] Route: l 02:00: SUB-Q, Drug form: INJ, [id number], Start date: 06/07/13 20:00:00, Duration: 30 day, Stop date: 07/06/13 20:00:00Nu rse to ensure documentat ion of patient education per [facility] policy. (Same as: Lovenox) Diflucan No Surainder 200 mg, M emoria 1-11 K Ajmani 100 mL, l 02:00: Route: IVPB, Drug form: INJ, [id number], Start date: 06/07/13 20:00:00, Duration: 30 day, [...] K Ajmani 150 mL, l 21:00: Route: Javier 00 IVPB, Drug form: SOLN, [id number], Start date: 06/06/13 15:00:00, Duration: 30 day, Stop date: 07/06/13 3:00:00Sam e as: Vancocin Maxipime + No Surainder 2 gm, M emoria Sodium 1-09 K Ajmani Route: l Chloride 20:00: IVPB, Javier 0.9% IV 100 00 [id number], mL Start date: 06/06/13 14:00:00, Duration: 30 day, Stop date: 07/06/13 6:00:00(Sa me as: Maxipime) Tylenol No Surainder 650 mg, 1 Memoria 1-09 K Ajmani supp, l 19:03: Route: DC, [place] 00 Drug form: SUPP, Q4H, PRN Pain/Fever [...] K Ajmani 200 mL, l 18:03: Route: [place] 00 IVPB, Drug form: INJ, ONCE, Start date: 06/06/13 12:03:00, Stop date: 06/06/13 12:03:00(S nereida as: KCL) Infuse no faster than 10 mEq/hr if given peripheral ly. Ativan No Surainder 1 mg, 0.5 M emoria 1-09 K Ajmani mL, Route: l 06:00: IV, Drug [place] 00 form: INJ, Q6H, Start date: 06/06/13 [...] Stokes mL, Route: l 02:00: IVPB, Drug Javier form: INJ, [id number], Start date: 06/05/13 20:00:00, Duration: 30 day, Stop date: 07/05/13 12:00:00Sa me as: Ancef promethazin No Scottie 6.25 mg, M emoria e 06-05 Haris Route: l 23:43: Walker IVPB, [place] 00 ONCE, Dosing Weight 105.455, kg, PRN [...] Haris 0.1 mL, l 23:43: Walker Route: [place] 00 IVP, Drug form: INJ, Q2MIN, Dosing [...] 06-05 Haris Route: l 23:43: Walker IVP, [place] 00 Q30Min, Dosing Weight 105.455, kg, PRN [...] Haris microgram, l 23:43: Walker 0.5 mL, [place] 00 Route: IVP, Drug form: INJ, Q5Min, [...] Route: l 22:00: SUB-Q, Drug form: INJ, [id number], Dosing Weight 105.455, kg, Start date: 06/05/13 [...] 1-08 K Rehanmani supp, l 15:43: Route: DC, Drug form: SUPP, ONCE, Start date: 06/05/13 [...] 1-08 K Ajmani supp, l 14:07: Route: DC, [place] 00 Drug form: SUPP, ONCE, Start date: [...] 1-08 K Ajmani supp, l 13:38: Route: DC, Drug form: SUPP, ONCE, Start date: 06/05/13 [...] Reinaldo 100 mL, l 21:50: Mawji Route: Javier 00 IVPB, Drug form: INJ, ONCE, Dosing [...] Rate: 125 l 1000ml 21:24: Abby ml/hr, Javier (Premix) 00 Infuse 1000 mL over: 8 [...] Stokes Route: PO, l 19:00: Drug Form: Javier 00 PDR/REC, Dosing Weight 105.455, kg, ONCE, Start date: 06/04/13 13:00:00, Duration: 1 doses or times, Stop date: 06/04/13 13:00:00(p olyethylen e glycol electrolyt e solution 4 Liter bottle) (Same as: Bernice Haider) magnesium No Surainder 4 gm, 100 Memoria sulfate 1-07 K Ajmani mL, Route: l 02:00: IVPB, Drug [place] 00 form: INJ, ONCALL, Start date: 06/03/13 20:00:00, Duration: 30 day, Stop date: 07/03/13 19:59:00 K-Dur 20 No Surainder 40 mEq, 2 Memoria 1-07 K Ajmani tab, l 01:00: Route: PO, [place] 00 Drug form: ERTAB, ONCALL, Start date: 06/03/13 19:00:00, Duration: 1 doses or times(Same as: K-Dur 20) "Do Not Crush" With food and full glass of water Tylenol No Amer Ahmad 650 mg, 2 Memoria 1-04 [place] tab, l 16:33: Route: PO, [place] 00 Drug form: TAB, Q6H, Dosing Weight [...] K Ajmani tab, l 22:30: Route: PO, [place] 00 Drug form: ECTAB, Before Dinner, Start date: 05/31/13 16:30:00, Duration: 30 day, Stop date: 06/29/13 16:30:00Ta blet should not be chewed or crushed. (Same as: Protonix) PROzac No Surainder 40 mg, 2 Me moria 1-03 K Ajmani cap, l 16:30: Route: NG, Javier 00 Drug form: CAP, Daily, Start date: 05/31/13 10:30:00, Stop date: 06/30/13 9:00:00([facility] as: Prozac, Sarafem) Levothroid No Surainder 50 [...] K Ajmani cap, l 16:30: Route: PO, [place] 00 Drug form: CAP, Daily, Start date: [...] Ajmani Route: PO, l 16:00: Drug Form: Javier 00 SUSP, ONCALL, Start date: 05/31/13 10:00:00, Duration: 30 day, Stop date: 06/30/13 9:59:00Sam e as Readi-Cat 2 Zofran No Bhagwat 4 mg, 2 Memor ia 05-31 Purush[place] mL, Route: l 11:49: m Goodman IVP, Drug Amy nn 00 form: INJ, Q4H, PRN Nausea, Start date: 05/31/13 5:49:00, Duration: 30 day, Stop date: 06/30/13 5:48:00(Sa fl as: Zofran) morphine No Bhagwat 4 mg, [...] oria 4-25 Kike Route: l 19:00: IVPB, [place] 00 [id number], Start date: 09/21/11 14:00:00, Duration: 30 day, Stop date: 10/21/11 6:00:00 nystatin-tr No Cyndi Rubin 1 appl, Memoria iamcinolone 4-24 Kike Route: l topical 14:00: TOP, BID, Amy nn cream 00 Drug form: CRM, Start date: 09/20/11 9:00:00, Duration: 30 day, Stop date: 10/19/11 17:00:00 Lovenox No Cyndi Rubin 40 mg, 0.4 Memoria 4-24 [place] mL, Route: l 09:00: SUB-Q, Javier 00 Drug form: INJ, [id number], Start date: 09/20/11 4:00:00, Duration: 30 day, Stop date: 10/19/11 4:00:00 Lovenox No Cyndi Rubin 40 mg, 0.4 Memoria 4-24 [place] mL, Route: l 05:00: SUB-Q, Javier Drug form: INJ, Q12H, Start date: 09/20/11 0:00:00, Duration: 30 day, Stop date: 10/19/11 12:00:00 Lasix No Cyndi Rubin 20 mg, 1 Me moria 4-23 [place] tab, l 22:45: Route: PO, [place] 00 Drug form: TAB, Daily, Start date: 09/19/11 17:45:00, Duration: 30 day, Stop date: 10/19/11 9:00:00 K-Dur 20 No Cyndi Rubin 40 mEq, 2 Memoria 4-23 [place] tab, l 22:43: Route: PO, [place] 00 Drug form: ERTAB, BID, Start date: 09/19/11 17:43:00, Duration: 30 day, Stop date: 10/19/11 17:00:00 vancomycin 2011-0 No Surainder 1 gm, M emoria 4-23 K Ajmani Route: l 19:00: IVPB, [place] 00 [id number], Start date: 09/19/11 14:00:00, Duration: 30 day, [...] Stokes mL, Route: l 20:36: NEB, Drug [place] 00 form: SOLN, RTID, PRN See Respirator [...] 21:00: SUB-Q, Javier 00 Drug form: INJ, [id number], Start date: 09/17/11 16:00:00, Duration: 30 day, Stop date: 10/16/11 12:00:00 Levaquin 2011-0 No Cyndi Rubin 500 mg, 1 Memoria 4-21 [place] tab, l 20:00: Route: PO, [place] 00 Drug form: TAB, [id number], Start date: 09/17/11 15:00:00, Duration: 30 day, Stop date: 10/16/11 15:00:00 Xenaderm 2011-0 No Cyndi Rubin 1 appl, Memoria 4-21 [place] Route: l 14:00: TOP, [place] 00 Daily, Drug form: OINT, Start date: [...] 4-20 K Ajmani Route: l 19:00: IVPB, [id number], Start date: 09/16/11 14:00:00, Duration: 30 day, Stop date: 10/14/11 14:00:00 Diflucan 2011-0 No Surainder 200 mg, 1 Memoria 4-20 K Ajmani tab, l 19:00: Route: PO, Drug form: TAB, [id number], Start date: 09/16/11 14:00:00, Duration: 30 day, [...] Stop date: 10/15/11 15:00:00 Sublimaze No Cyndi Rubin 25 Me moria 4-20 [place] microgram, l [...] Kike 6.67 mL, l 23:00: Route: IV, [place] 00 ONCE, Start date: 09/14/11 18:00:00, Stop date: 09/14/11 18:00:00 Dulcolax No Cyndi Rubin 20 mg, 2 Memoria Laxative 4-18 Kike supp, l 22:15: Route: DC, Drug form: SUPP, ONCE, Start date: 09/14/11 17:15:00, Stop date: 09/14/11 17:15:00 Dulcolax No Cyndi Rubin 20 mg, 2 Memoria Laxative 4-18 Kike supp, l 21:56: Route: DC, Drug form: SUPP, Q48H, PRN Constipati on, [...] Retz mL, Route: l 15:00: IV, Drug [place] 00 form: INJ, ONCE, Start date: 09/14/11 [...] Retz mL, Route: l 14:13: IVPB, Drug Javier form: INJ, ONCE, Start date: 09/14/11 9:13:00, Stop date: 09/14/11 9:13:00 Cardizem 2011-0 No Pily L 10 mg, 2 Mem oria 4-18 Retz mL, Route: l 14:12: IV, Drug Javier form: INJ, ONCE, Start date: 09/14/11 9:12:00, Stop date: 09/14/11 9:12:00 Cardizem 2011-0 No Pily L 10 mg, 2 Mem oria 4-18 Retz mL, Route: l 14:09: IV, Drug [place] 00 form: INJ, ONCE, Start date: 09/14/11 9:09:00, Stop date: 09/14/11 9:09:00 diltiazem 2011-0 No Pily L 100 mL, Mem oria 100 mg + 4-18 Retz Rate: l Sodium 14:09: TITRATE, [place] Chloride 00 Route: IV, 0.9% IV 100 [...] Stokes Rate: 70 l solution 02:00: ml/hr, [place] w/electroly 00 Infuse ernesto 1,680 over: 24 [...] Stokes 10 mL, l 03:00: Route: IV, Javier 00 Drug form: INJ, ONCE, Start date: 09/12/11 22:00:00, Stop date: 09/12/11 22:00:00 albumin No Luis 25 gm, 100 Memoria human 4-17 [place] mL, Route: l 01:00: IV, Drug form: INJ, Q12H, Start date: 09/12/11 20:00:00, Stop date: 09/15/11 0:00:00 Sodium No Cyndi Rubin 250 mL, Me moria Chloride 4-16 Stokes Route: l 0.9% IV 23:05: IVPB, [place] 00 Start date: 09/12/11 18:05:00, Duration: 30 [...] 4-16 Stokes 100 mL, l 16:00: Route: Javier 00 IVPB, Drug form: INJ, [id number], Start date: 09/12/11 11:00:00, Duration: 3 day, Stop date: 09/14/11 11:00:00 magnesium 2011- No Cyndi Rubin 50 mL, Memoria sulfate -16 Stokes Rate: 25 l 16:00: ml/hr, [place] Infuse over: 2 hr, Route: IVPB, Total Volume: 50, Start date: 09/12/11 11:00:00, Stop date: 09/12/11 11:00:00 calcium 2011- No Alli 1,000 mg, Yosi brittanie gluconate - [place] 10 mL, l 12:00: Vandana Route: Amy [...] Rubin IV, Start Memoria 0.6 mg - Stokse date: l 05:54: 09/12/11 Javier 0:54:00, Duration: 30, 30 ml glucagon No Alli 1 mg, Memoria -16 Soren Route: IV, l 05:19: Vandana Drug form: H ermann 00 PDR/INJ, PRN, PRN Blood Glucose Results, Start date: 09/12/11 0:19:00, Duration: 30 day, Stop date: 10/12/11 0:18:00 Dextrose No Alli 50 mL, Memori a 50% in - Soren Route: l Water IV 05:19: Vandana IVP, [...] Rate: 100 l 0.9% IV 04:33: ml/hr, [place] 1,000 mL 00 Infuse over: 10 hr, Route: IV, Dosing Weight 117.8 kg, Total Volume: 1,000, Start date: 09/11/11 23:33:00, Stop date: 09/13/11 20:59:00 Sodium 2011- No Cyndi Rubin 1,000 mL, Memoria Chloride 4-16 Stokes Rate: 100 l 0.9% IV 01:19: ml/hr, [place] 1,000 mL 00 Infuse over: 10 hr, [...] Retz mL, Route: l 21:46: IV, Drug [place] 00 form: INJ, ONCE, Start date: 09/11/11 16:46:00, Stop date: 09/11/11 16:46:00 Lasix 2011- No Pily L 20 mg, 2 Memori a 4-15 Retz mL, Route: l 21:38: IV, Drug form: INJ, ONCE, Start date: 09/11/11 16:38:00, Stop date: 09/11/11 16:38:00 Sublimaze No Cyndi Rubin 50 Me moria 4-15 Stokes microgram, l 20:04: 1 mL, [place] 00 Route: IV, Drug form: INJ, ONCE, Start date: 09/11/11 15:04:00, Stop date: 09/11/11 15:04:00 sodium No Cyndi Rubin 100 mEq, M emoria bicarbonate 4-15 [place] 100 mL, l 8.4% 19:00: Route: IV, [place] 00 Drug Form: INJ, ONCE, Start date: 09/11/11 14:00:00, Stop date: 09/11/11 14:00:00 cefazolin [place] Rubin 1 gm, M emoria 4-15 Stokes Route: l 15:00: IVPB, [place] 00 [id number], Start date: 09/11/11 10:00:00, Duration: [...] Rate: 100 l 0.9% IV 14:38: ml/hr, Javier 1,000 mL 00 Infuse over: 10 hr, [...] 4-15 K Ajmani Route: l 11:00: IVPB, [place] 00 [id number], Start date: 09/11/11 6:00:00, Duration: 1 day, Stop date: 09/17/11 6:00:00 albumin No Cyndi Rubin 12.5 gm, Memoria human 4-15 [place] 250 mL, l 10:32: Route: IV, [place] 00 Drug form: INJ, ONCE, Start date: 09/11/11 5:32:00, Stop date: 09/11/11 5:32:00 vancomycin No Surainder 1 gm, M emoria 4-15 K Ajmani Route: l 10:30: IVPB, [place] 00 ONCE, Start date: 09/11/11 5:30:00, Stop date: 09/11/11 5:30:00 hetastarch No Cyndi Rubin IV, Start Memoria 6% in NS 4-15 Stokes date: l 500 mL 10:30: 09/11/11 [place] 00 5:30:00, Duration: 1, 500 ml Lasix [...] 4-14 Kike tab, l 14:00: Route: PO, [place] 00 Drug form: TAB, Daily, Start date: [...] date: 09/09/11 16:55:00, Stop date: 09/09/11 16:55:00 Levothyroxi Levothyroxi Yes Lise [address] [facility] ne Sodium ne Sodium Marj on an [facility] stomach in l the Outpat[facility] morning ent Clinics Citalopram Citalopram Yes Uni vers Hydrobromid Hydrobromid i ty of e 40 MG e 40 MG [place] Oral Tablet Oral Tablet P hysici ans ClonazePAM ClonazePAM Yes Uni vers 0.5 MG Oral 0.5 MG Oral i ty of Tablet Tablet [place] Disintegrat Disintegrat P hysici ing ing ans TraZODone TraZODone Yes Unive rs HCl - [...] Tablet Oral Tablet [place] [facility] Aspir-81 Aspir-81 Yes Lise [address] [facility] Tolterodine Tolterodine Yes U nivers Tartrate ER Tartrate ER i ty of 4 MG Oral 4 MG Oral [place] Capsule Capsule Physici Extended Extended ans Release 24 Release 24 Hour Hour Lawrence Bravo Yes Lise as [facility] AREDS AREDS [place] directed [facility] Levothyroxi Levothyroxi Yes U nivers ne Sodium ne Sodium ity o f 75 MCG Oral 75 MCG Oral [place] Tablet Tablet Physici ans Prevacid 30 Prevacid 30 Yes U nivers MG Oral MG Oral ity of Capsule Capsule [place] Delayed Delayed Physici Release Release ans Stool Stool Yes Lise [address] [facility] Softener Softener Marj as needed [facility] Trazodone Trazodone Yes Lise [address] [facility] HCl HCl [place] at bedtime [facility] Prempro Prempro Yes Lise [address] [facility] Lyrica Lyrica Yes Lise [facility] [place] [facility] Clonazepam Clonazepam Yes Lise [address] [facility] Myrbetriq Myrbetriq Yes Lise [address] [facility] Tizanidine Tizanidine Yes Lise [address] [facility] HCl HCl Marj as needed [facility] Meloxicam Meloxicam Yes Lise [address] [facility] [place] [facility] Memantine Memantine Yes Lise [address] [facility] HCl HCl [place] [facility] Donepezil Donepezil Yes Lise [address] [facility] HCl HCl [place] at bedtime [facility] BuPROPion BuPROPion Yes Lise [address] [facility] [address] HCl ER (XL) HCl ER (XL) Marj in the [facility] Citalopram Citalopram Yes Lise 0.[address] [facility] [address] Hydrobromid Hydrobromid Marj [facility] Tolterodine Tolterodine Yes Lise [address] [facility] [address] Tartrate ER Tartrate ER [place] [facility] Hydrocodone Hydrocodone Yes Lise [address] [facility] [address] -Acetaminop -Acetaminop [place] as needed [facility] Potassium Potassium Yes Lise [address] [facility] Tolterodine Tolterodine Yes U nivers Tartrate ER Tartrate ER i ty of 4 MG Oral 4 MG Oral [place] Capsule Capsule Physici Extended Extended ans Release 24 Release 24 Hour Hour Lansoprazol Lansoprazol Yes Lise [address] [facility] [address] e e [place] [facility] BuPROPion BuPROPion Yes Unive rs HCl ER (XL) HCl ER (XL) i ty of 300 MG Oral 300 MG Oral [place] Tablet Tablet Physici Extended Extended ans Release 24 Release 24 Hour Hour Vital Signs Vital Name Observation Time Observation Value Comments Source Height 2018-04-12 17:38:00 60 [in_us] [facility] s Weight 2018-04-12 17:38:00 245 [lb_av] [facility] Body Mass Index 2018-04-12 17:38:00 47.85 kg/m2 Unive rsity of Calculated [place] Physician s Systolic (mm Hg) 2016-01-04 21:00:00 Yosi Herrera Diastolic (mm Hg) 2016-01-04 21:00:00 Andrew Herrera Respitory Rate 2016-01-04 21:00:00 Iris Kingsley Heart Rate 2016-01-04 21:00:00 [facility] [place] Temperature Oral (F) 2016-01-04 21:00:00 98.5 F [facility] Javier Systolic (mm Hg) 2016-01-04 17:09:00 Yosi rial [place] Diastolic (mm Hg) 2016-01-04 17:09:00 Mem orial Javier Respitory Rate 2016-01-04 17:09:00 Memori al [place] Temperature Oral (F) 2016-01-04 17:09:00 98.3 F [facility] Javier Heart Rate 2016-01-04 17:09:00 [facility] Javier Systolic (mm Hg) 2016-01-04 13:27:00 Yosi rial Javier Diastolic (mm Hg) 2016-01-04 13:27:00 Mem orial Javier Temperature Oral (F) 2016-01-04 13:27:00 98.6 F [facility] [place] Respitory Rate 2016-01-04 13:27:00 Memori al [place] Heart Rate 2016-01-04 13:27:00 [facility] Javier BMI Calculated 2016-01-03 07:54:00 Memori al Javier Weight 2016-01-03 07:54:00 [facility] [place] Height 2016-01-03 07:54:00 152.4 cm [facility] [place] Heart Rate 2013-06-20 14:01:00 [facility] Javier Respitory Rate 2013-06-20 14:01:00 Memori al Javier Diastolic (mm Hg) 2013-06-20 14:01:00 Mem orial Javier Systolic (mm Hg) 2013-06-20 14:01:00 Yosi rial Javier Heart Rate 2013-06-20 06:33:00 [facility] [place] Temperature Oral (F) 2013-06-20 06:33:00 98.1 F [facility] Javier Respitory Rate 2013-06-20 06:33:00 Memori al [place] Systolic (mm Hg) 2013-06-20 06:33:00 Yosi rial [place] Diastolic (mm Hg) 2013-06-20 06:33:00 Mem orial Javier Systolic (mm Hg) 2013-06-19 21:46:00 Yosi rial [place] Respitory Rate 2013-06-19 21:46:00 Memori al Javier Temperature Oral (F) 2013-06-19 21:46:00 98.1 F [facility] [place] Diastolic (mm Hg) 2013-06-19 21:46:00 Mem orial [place] Heart Rate 2013-06-19 21:46:00 [facility] [place] Temperature Oral (F) 2013-06-19 14:05:00 98.3 F [facility] [place] Height 2013-06-14 02:44:00 152.4 cm [facility] Javier Weight 2013-06-14 02:44:00 [facility] [place] Weight 2013-06-14 02:35:00 [facility] [place] Height 2013-06-14 02:35:00 152.4 cm [facility] J[place] Temperature Oral (F) 2013-06-13 21:15:00 98.5 F [facility] [place] Heart Rate 2013-06-13 21:15:00 [facility] [place] Respitory Rate 2013-06-13 21:15:00 Memori al Javier Systolic (mm Hg) 2013-06-13 21:15:00 Yosi rial [place] Diastolic (mm Hg) 2013-06-13 21:15:00 Mem orial [place] Temperature Oral (F) 2013-06-13 18:00:00 97.8 F [facility] [place] Systolic (mm Hg) 2013-06-13 18:00:00 Yosi rial Javier Diastolic (mm Hg) 2013-06-13 18:00:00 Mem orial Javier Respitory Rate 2013-06-13 18:00:00 Memori al Javier Heart Rate 2013-06-13 18:00:00 [facility] [place] Diastolic (mm Hg) 2013-06-13 14:00:00 Mem orial Javier Systolic (mm Hg) 2013-06-13 14:00:00 Yosi rial Javier Respitory Rate 2013-06-13 14:00:00 Memori al [place] Temperature Oral (F) 2013-06-13 14:00:00 97.5 F [facility] [place] Heart Rate 2013-06-13 14:00:00 [facility] [place] Height 2013-06-06 13:50:00 152.4 cm [facility] [place] Weight 2013-05-31 13:50:00 [facility] [place] Height 2013-05-31 09:25:00 152.4 cm [facility] [place] Weight 2013-05-31 09:25:00 [facility] [place] Diastolic (mm Hg) 2011-09-21 17:50:00 Mem orial Javier Systolic (mm Hg) 2011-09-21 17:50:00 Yosi rial [place] Respitory Rate 2011-09-21 17:50:00 Memori al [place] Heart Rate 2011-09-21 17:50:00 Memorial Javier Respitory Rate 2011-09-21 13:57:00 Memori al [place] Diastolic (mm Hg) 2011-09-21 13:57:00 Mem orial [place] Systolic (mm Hg) 2011-09-21 13:57:00 Yosi rial Javier Heart Rate 2011-09-21 13:57:00 [facility] [place] Respitory Rate 2011-09-21 09:00:00 Memori al Javier Systolic (mm Hg) 2011-09-21 09:00:00 Yosi rial Javier Heart Rate 2011-09-21 09:00:00 [facility] [place] Diastolic (mm Hg) 2011-09-21 09:00:00 Mem orial Javier Temperature Oral (F) 2011-09-21 09:00:00 98.0 F [facility] [place] Temperature Oral (F) 2011-09-21 05:00:00 98.1 F [facility] [place] Temperature Oral (F) 2011-09-20 21:11:00 98.1 F [facility] [place] Weight 2011-09-06 15:17:00 [facility] Javier Height 2011-09-06 15:17:00 152.40 cm [facility]avier Procedures Procedure Date / Time Performing Clinician Source Performed [facility] History of Tonsillectomy Univers [facility] with adenoidectomy Physicians History of Cholecystectomy Unive [facility] Physicians History of Gastric bypass [facility] surgery Physicians History of Tubal ligation [facility] bilateral Physicians History of Stomach surgery Unive [facility] Physicians History of Hernia repair Univers [facility] Physicians History of Removal [facility] Physicians History of Inguinal hernia Unive [facility] repair Physicians History of Knee [facility] arthroscopy Physicians History of Carpal tunnel Univers [facility] surgery Physicians History of Epidural [facility] [place] steroid injection Physicians Encounters Start End Encounter Admission Attending Care Care Encounter Source Date/Time Date/Time Type Type Clinicians Facility Department ID 2020-09-15 2020-09-15 Kevin HANNA [id number] 00:00:00 00:00:00 Only Unassigned, JOE [id number] [place] [facility] [id number] 2019-10-31 2019-10-31 Emergency Emerson Newman [facility] 1.2.840. 114 [id number] 17:00:34 23:03:00 Martha Henry Cori [id number] [place] 4.2.7.2.686 [place] [id number] 2019-07-23 2019-07-23 [facility] [id number] [address] 10:00:00 10:00:00 t Specialty/U Brie kes - Specialty rology Memori a /Urology Clinic l Clinic Outpati ent Clinics 2019-02-14 2019-02-14 Transition Steven Mack 1.2.840.114 [id number] 00:00:00 00:00:00 of Care Silvana Duarte [id number] [place] [id number] [id number] 2019-02-11 2019-02-13 [facility] 1.2.840.114 [id number] 08:42:00 18:25:00 Encounter Jasper Persaud [id number] [place] 4.2.7.2.686 [place] [id number] [id number] 2019-02-11 2019-02-11 Anesthesia [facility] 1.2.840.114 [id number] 09:40:00 11:45:00 Kulwinder Persaud [id number] [place] 4.2.7.2.686 Surgical [id number] [place] 020 2019-02-11 2019-02-11 Orders Doctor HANNA 1.2.840.114 [id number] 00:00:00 00:00:00 Only Unassigned, JOE [id number] [place] [id number] [id number] 2019-02-07 2019-02-07 [facility] 1.2.840.114 [id number] 09:30:00 23:59:00 Encounter Jasper Persaud [id number] [place] 4.2.7.2.686 [place] [id number] [id number] 2019-02-07 2019-02-07 Jacquard Card Lacer 1, Adc Lab [facility] 1.2.840.114 [id number] 14:54:45 15:09:45 Visit Cori [id number] [place] 4.2.7.2.686 [place] [id number] 2019-02-07 2019-02-07 [facility] 1.2.840.114 [id number] 08:00:00 09:29:00 Encounter Jasper Persaud [id number] [place] 4.2.7.2.686 [place] [id number] [id number] 2019-02-04 2019-02-[address] [facility] 1.2.840.114 [id number] 00:00:00 00:00:00 [facility] [id number] Surgical [id number] Specialti [id number] es [address] [place] [employer] 2019-02-04 2019-02-04 [facility] 1.2.840.114 [id number] 00:00:00 00:00:00 [facility] [id number] Surgical 4.2.7.2.686 Specialti [id number] es [address] [place] [employer] 2019-02-01 2019-02-01 Prep [address] [facility] 1.2.840.114 [id number] 00:00:00 00:00:00 Surgery [facility] [id number] Surgical 4.2.7.2.686 Specialti [id number] es [address] [place] [employer] 2019-01-29 2019-01-29 [facility] 1.2.840.114 [id number] 14:49:38 23:59:00 Encounter Jasper Persaud [id number] [place] 4.2.7.2.686 [place] [id number] 2019-01-29 2019-01-29 [facility] 1.2.840.114 [id number] 14:43:43 14:48:00 Encounter [facility] [id number] Surgical 4.2.7.2.686 Specialti [id number] es [address] [place] 2019-01-29 2019-01-29 [facility] 1.2.840.114 [id number] 13:52:01 14:42:00 Encounter [facility] [id number] Surgical 4.2.7.2.686 Specialti [id number] es 8[address] [place] 2019-01-29 2019-01-29 Office [facility] 1.2.840.114 [id number] 12:33:53 13:52:08 Visit [facility] [id number] Surgical 4.2.7.2.686 Specialti [id number] es [address] [place] [employer] 2019-01-23 2019-01-23 Orders Doctor CYNDI 1.2.840.114 [id number] 00:00:00 00:00:00 Only Unassigned, JOE 350.1.13.10 [place] [facility] 4.2.7.2.686 [id number] [id number] 2018-11-19 2018-11-19 Orders Doctor CYNDI 1.2.840.114 [id number] 00:00:00 00:00:00 Only Unassigned, JOE [id number] [place] [facility] 4.2.7.2.686 [id number] [id number] 2018-04-12 2018-04-12 Appointmichael [facility] UTP [id number] Univers 16:00:00 16:00:00 t; PEARL CANTRELL Orthopedic it y of [facility]ELI, Surgery - Frank as PEARL CANTRELL Demetrius Physic i Trace 1 ans 2017-12-26 2017-12-26 [facility] UTP [id number] Univers 09:45:00 09:45:00 t; PEARL CANTRELL [place] PEARL CANTRELL Physici ans 2017-12-19 2017-12-19 AppointCULLEN Ramirez UTP [id number] Univers 09:30:00 09:30:00 t; PEARL CANTRELL [place] PEARL CANTRELL Physici ans 2017-12-12 2017-12-12 AppointCULLEN Ramirez UTP [id number] Univers 09:45:00 09:45:00 t; ÓSCAR, Deshawn Montez NP Physici ans 2017-08-29 2017-08-29 [facility] NELI, [facility] [id number] Univers 10:45:00 10:45:00 t; PEARL CANTRELL [place] SEAN, NP Physici ans 2016-01-04 2016-01-04 [facility] [id number] 17:10:00 18:50:00 Valente Tyler 20 2013-06-13 2013-06-20 Outpatient [facility] [id number] Memoria 20:10:00 10:30:00 Javier Javier 02 l [facility] Rehabilit Rehabilita So uthwe ation ion st Rehabil itation 2013-05-31 2013-06-13 Outpatient [facility] [id number] Memoria 09:55:00 20:00:00 Javier Javier l [facility] Results Test Description Test Time Test Comments Results Result Comments Source CULTURE, SPUTUM 2020-08-02 15:48:00 Test Item Value Reference Range Interpretation Comme nts CULTSPUT (test ======== code = CULTSPUT) CULTSPUT (test ======== code = [id number]) [facility] 2020-08-01 1042 HEAVY GROWTH [facility] 2020-08-01 1043 MRSA ISOLATED IN SPUTUM CULTURE; CONTACT PRECAUTIONS INDICATED FOR INPATIENTS CALLED INFECTION PREVENTION @10:42 [facility] 2020-08-01 1044 ID AND/OR SENSITIVITY TO FOLLOW PRELIMINARY REPORT CULTURE, URINE 2020-08-02 15:42:00 Test Item Value Reference Range Interpretation Comments CULTURIN (test code = CULTURIN) CULTURIN (test code = [id number]) [facility] 2020-08-01 1026 >100,000 CFU/ML [facility] 2020-08-01 1027 OXIDASE NEGATIVE GRAM NEGATIVE BACILLI ISOLATED PRELIMINARY REPORT [facility] 2020-08-01 1028 ID AND/OR SENSITIVITY TO FOLLOW PRELIMINARY REPORT BLOOD [id number] 15:35:00 Test Item Value Reference Range Interpretation Comments Report Text (test [facility] 2020-07-31 code = Report Text) Report Text7 (test BLOOD CULTURES HELD FOR code = Report 5 DAYS BEFORE FINAL Text7) Report Text8 (test code = Report Text8) Report Text9 (test [employer] code = Report MICROBIOLOGY SUGGESTS THAT Text9) Report Text10 (test MOST CASES OF BACTEREMIA code = Report ARE DETECTED BY USING Text10) Report Text11 (test THREE SETS OF SEPARATELY code = Report COLLECTED BLOOD CULTURES. Text11) Report Text12 (test [facility] 2020-07-31 84 code = Report Text12) [...] code = Report Text24) Report Text25 (test [facility] 2020-08-01 1158 code = Report Text25) Report Text26 (test code = Report Text26) Report Text27 (test 2 BLOOD CULTURE BOTTLES code = Report WERE COLLECTED, ONLY Text27) Report Text28 (test ONE BOTTLE IS code = Report POSITIVE FOR GROWTH Text28) Report Text29 (test code = Report Text29) Report Text30 (test [facility] 2020-08-01 1159 code = Report Text30) Report [...] SENSITIVITY FOR BLOOD code = Report CULT #[id number] Text39) Report Text40 (test , COLLECTED code = Report 07/31/2020 Text40) Report Text41 (test FINAL REPORT code = Report Text41) BLOOD [id number] 15:34:00 Test Item Value Reference Range Interpretation Comments CULTBLD2 (test code = CULTBLD2) CULTBLD2 (test code = [id number]) [facility] 2020-07-31 845 BLOOD CULTURES HELD FOR 5 DAYS BEFORE FINAL [employer] SUGGESTS THAT MOST CASES OF BACTEREMIA ARE DETECTED BY USING THREE SETS OF SEPARATELY COLLECTED BLOOD CULTURES. [facility] 2020-07-31 846 CONVERSELY, A SINGLE BLO OD CULTURE MAY MISS INTERMITTENTLY OCCURRING BACTEREMIA AND MAKE IT DIFFICULT TO INTERPRET THE CLINICAL SIGNIFICANCE OF CERTAIN ISOLATED ORGANISMS. [facility] 2020-07-31 847 DRAWN FROM CENTRAL LINE [facility] 2020-08-01 155 POSITIVE BLOOD CULTURE GRAM STAIN RESULT GRAM POSITIVE COCCI SEEN ON SMEAR PRELIMINARY REPORT; PATIENT DISCHARGED [facility] 2020-08-01 1158 2 BLOOD CULTURE BOTTLES WERE COLLECTED, ONLY ONE BOTTLE IS POSITIVE FOR GROWTH [facility] 2020-08-01 1159 CATALASE POSITIVE, COAGULASE NEGATIVE GRAM POSITIVE COCCI ISOLATED (PROBABLE ST.EPIDERMIDIS OR OTHER COAG NEG STAPHYLOCOCCUS)PRELIMINARY REPORT [facility] 2020-08-01 1200 ID AND/OR SENSITIVITY TO FOLLOW PRELIMINARY REPORT [id number] 10:03:00 Test Item Value Reference Range Interpretation [...] K/UL 1.2-7.2 = NEUT) BMP, BASIC METABOLIC [id number] 09:17:00 Test Item Value Reference Range Interpretation [...] glucose = GLUCOSE) normal <100 MG/ DL- [employer] recommendation* * CALCIUM (test code 8.3 MG/DL 8.4-10.2 L = CABLOOD) GFR (test code = 88 A GFR of >9 0 GFR) mL/min/1.73m2 mL/min/1.73m2 is considered norm al. The GFR calcula tion on patients ove r 70 years of age is not validated by e special education associate an d may not represent t he patients true r enal function. WHOLE BLOOD [id number] 06:10:00 Test Item Value Reference Range Interpretation Comments WHOLE BLOOD GLUCOSE 134 MG/DL 70-99 H Fastin g glucose (test code = POC GLU) normal <100 MG/DL- [employer] recommend ation GRAM [id number] 16:04:00 Test Item Value Reference Range Interpretation Comments Report Text (test code CWJ 2020-07-31 1604 = Report Text) Report Text7 (test FEW WBC SEEN code = Report Text7) Report Text8 (test CWJ 2020-07-31 1605 code = Report Text8) Report Text9 (test MANY GRAM POSITIVE code = Report Text9) COCCI SEEN [id number] 08:28:00 Test Item Value Reference Range Interpretation [...] BACTERIA (test code = NEGATIVE NONE BACTERIA) [id number] 07:31:00 Test Item Value Reference Range Interpretation [...] ex clude an infection. CHEST 1 VIEW [id number] 06:14:00 [facility] 1950 [facility] [place] [id number] IMAGING REPORTPatient Name: Kristan COLLAZO of Service: [id number]: 70 Sex: F Order #: [id number] Room: [facility] 2SDOB: 1950 X-Ray Number: [id number] Record Number: [id number] Hospital Number: [id number] Physician: Jaswinder SHABAZZ Physician: Armando RUGGIERO one [...] AMLegally authenticated by LINO PETE 2020-07-31 06:11:31 [id number] 05:23:00 Test Item Value Reference Range Interpretation [...] glucose = GLUCOSE) normal <100 MG/ DL- [employer] recommendation* * CALCIUM (test [...] of age is not validated by e special education associate an d may not represent t he patients true r enal function. RESULT VERIFIED BY REPEAT ANALYSIS ON ALTERNATE INSTRUMENT.[id number] 05:23:00 Test Item Value Reference Range Interpretation Comments MG (test code = MG) 2.1 mg/dL 1.6-2.3 [id number] 05:23:00 Test Item Value Reference Range Interpretation Comments PHOSPHOR (test code = PHOSPHOR) 2.9 MG/DL 2.5-4.5 [id number] 03:57:00 Test Item Value Reference Range Interpretation [...] K/UL 1.2-7.2 H = NEUT) BLOOD GAS [id number] 03:03:00 Test Item Value Reference Range Interpretation Comments SITE (test code = LRAD See_Comment [Automate d message] SITE) The system [facility] generated this result transmitted ref erence range: [...] H [Automat ed message] BGCO) The system [facility] generated this result transmitted ref erence range: -1.5. Th e reference range was not used to interpr et this result as normal/abnormal . % MET HB (test code 0.7 % 0.4-1.5 = %MET HB) CAO2 (test code = 15.4 VOL% 15.7-21.6 L CAO2) PF/RATIO (test code 343.0 = PF/RATIO) ANTICOAG?: LAST DOSE?:WHOLE BLOOD [id number] 02:35:00 Test Item Value Reference Range Interpretation Comments WHOLE BLOOD GLUCOSE 141 MG/DL 70-99 Fastin g glucose (test code = POC GLU) normal <100 MG/DL- [employer] recommend ation [id number] 18:29:00 Test Item Value Reference Range Interpretation Comments K+ (test code = KSERUM) 3.9 MMOL/L 3.5-5.1 [id number] 18:29:00 Test Item Value Reference Range Interpretation Comments MG (test code = MG) 2.1 mg/dL 1.6-2.3 WHOLE BLOOD [id number] 18:10:00 Test Item Value Reference Range Interpretation Comments WHOLE BLOOD GLUCOSE 116 MG/DL 70-99 H Fastin g glucose (test code = POC GLU) normal <100 MG/DL- [employer] recommend ation WHOLE BLOOD [id number] 13:20:00 Test Item Value Reference Range Interpretation Comments WHOLE BLOOD GLUCOSE 130 MG/DL 70-99 H Fastin g glucose (test code = POC GLU) normal <100 MG/DL- [employer] recommend ation WHOLE BLOOD [id number] 12:56:00 Test Item Value Reference Range Interpretation Comments WHOLE BLOOD GLUCOSE 130 MG/DL 70-99 H Fastin g glucose (test code = POC GLU) normal <100 MG/DL- [employer] recommend ation WHOLE BLOOD [id number] 12:55:00 Test Item Value Reference Range Interpretation Comments WHOLE BLOOD GLUCOSE 130 MG/DL 70-99 H Fastin g glucose (test code = POC GLU) normal <100 MG/DL- [employer] recommend ation WHOLE BLOOD [id number] 12:55:00 Test Item Value Reference Range Interpretation Comments WHOLE BLOOD GLUCOSE 120 MG/DL 70-99 H Fastin g glucose (test code = POC GLU) normal <100 MG/DL- [employer] recommend ation WHOLE BLOOD [id number] 12:55:00 Test Item Value Reference Range Interpretation Comments WHOLE BLOOD GLUCOSE 184 MG/DL 70-99 H Fastin g glucose (test code = POC GLU) normal <100 MG/DL- [employer] recommend ation WHOLE BLOOD [id number] 12:54:00 Test Item Value Reference Range Interpretation Comments WHOLE BLOOD GLUCOSE 130 MG/DL 70-99 H Fastin g glucose (test code = POC GLU) normal <100 MG/DL- [employer] recommend ation [id number] 10:57:00 Test Item Value Reference Range Interpretation Comments K+ (test code = KSERUM) 3.5 MMOL/L 3.5-5.1 [id number] 10:57:00 Test Item Value Reference Range Interpretation Comments MG (test code = MG) 2.0 mg/dL 1.6-2.3 CHEST 1 VIEW [id number] 06:21:00 [facility] : 1950 [facility]: [facility] [place], [place] [address]ZGZICPDYYN IMAGING REPORTPatient Name: ANGY COLLAZODate of Service: [id number]: 70 Sex: F Order #: [id number] Room: [facility] 2SDOB: 1950 X-Ray Number: [id number] Record Number: [id number] Hospital Number: [id number] Physician: Jaswinder SHABAZZ Physician: Karissa COYNE one [...] AMLegally authenticated by LINO PETE 2020-07-30 06:19:07 [id number] 04:26:00 Test Item Value Reference Range Interpretation Comments PHOSPHOR (test code = PHOSPHOR) 2.8 MG/DL 2.5-4.5 BMP, BASIC METABOLIC [id number] 04:25:00 Test Item Value Reference Range Interpretation [...] glucose = GLUCOSE) normal <100 MG/ DL- [employer] recommendation* * CALCIUM (test code 8.0 MG/DL 8.4-10.2 L = CABLOOD) GFR (test code = 76 A GFR of >9 0 GFR) mL/min/1.73m2 mL/min/1.73m2 is considered norm al. The GFR calcula tion on patients ove r 70 years of age is not validated by e special education associate an d may not represent t he patients true r enal function. [id number] 04:25:00 Test Item Value Reference Range Interpretation Comments MG (test code = MG) 2.0 mg/dL 1.6-2.3 [id number] 03:29:00 Test Item Value Reference Range Interpretation [...] 6.7 K/UL 1.2-7.2 = NEUT) BLOOD GAS [id number] 02:59:00 Test Item Value Reference Range Interpretation Comments SITE (test code = LRAD See_Comment [Automate d message] SITE) The system [facility] generated this result transmitted ref erence range: [...] H [Automat ed message] BGCO) The system [facility] generated this result transmitted ref erence range: -1.5. Th e reference range was not used to interpr et this result as normal/abnormal . % MET HB (test code 1.2 % 0.4-1.5 = %MET HB) CAO2 (test code = 14.9 VOL% 15.7-21.6 L CAO2) PF/RATIO (test code 330.0 = PF/RATIO) ANTICOAG?: LAST DOSE?:WHOLE BLOOD [id number] 12:55:00 Test Item Value Reference Range Interpretation Comments WHOLE BLOOD GLUCOSE 145 MG/DL 70-99 H Fastin g glucose (test code = POC GLU) normal <100 MG/DL- [employer] recommend ation WHOLE BLOOD [id number] 11:20:00 Test Item Value Reference Range Interpretation Comments WHOLE BLOOD GLUCOSE 150 MG/DL 70-99 H Fastin g glucose (test code = POC GLU) normal <100 MG/DL- [employer] recommend ation CHEST 1 VIEW [id number] 06:58:00 [facility] : 1950 Sex: F[address] [id number] IMAGING REPORTPatient Name: ANGY COLLAZODate of Service: [id number]: 70 Sex: F Order #: [id number] Room: [facility] 2SDOB: 1950 X-Ray Number: [id number] Record Number: [id number] Hospital Number: [id number] Physician: Jaswinder SHABAZZ Physician: Karissa COYNE one [...] = MG) 2.1 mg/dL 1.6-2.3 WHOLE BLOOD [id number] 05:50:00 Test Item Value Reference Range Interpretation Comments WHOLE BLOOD GLUCOSE 166 MG/DL 70-99 H Fastin g glucose (test code = POC GLU) normal <100 MG/DL- [employer] recommend ation BMP, BASIC METABOLIC [id number] 03:17:00 Test Item Value Reference Range Interpretation [...] glucose = GLUCOSE) normal <100 MG/ DL- [employer] recommendation* * CALCIUM (test code 8.3 MG/DL 8.4-10.2 L = CABLOOD) GFR (test code = 66 A GFR of >9 0 GFR) mL/min/1.73m2 mL/min/1.73m2 is considered norm al. The GFR calcula tion on patients ove r 70 years of age is not validated by e special education associate an d may not represent t he patients true r enal function. [id number] 02:50:00 Test Item Value Reference Range Interpretation [...] 7.0 K/UL 1.2-7.2 = NEUT) BLOOD GAS [id number] 02:48:00 Test Item Value Reference Range Interpretation Comments SITE (test code = LRAD See_Comment [Automate d message] SITE) The system [facility] generated this result transmitted ref erence range: [...] H [Automat ed message] BGCO) The system [facility] generated this result transmitted ref erence range: -1.5. Th e reference range was not used to interpr et this result as normal/abnormal . % MET HB (test code 0.7 % 0.4-1.5 = %MET HB) CAO2 (test code = 15.0 VOL% 15.7-21.6 L CAO2) PF/RATIO (test code 293.0 = PF/RATIO) ANTICOAG?: LAST DOSE?:WHOLE BLOOD [id number] 01:25:00 Test Item Value Reference Range Interpretation Comments WHOLE BLOOD GLUCOSE 130 MG/DL 70-99 H Fastin g glucose (test code = POC GLU) normal <100 MG/DL- [employer] recommend ation WHOLE BLOOD [id number] 01:20:00 Test Item Value Reference Range Interpretation Comments WHOLE BLOOD GLUCOSE 140 MG/DL 70-99 H Fastin g glucose (test code = POC GLU) normal <100 MG/DL- [employer] recommend ation COVID SYMPTOMATIC ER [id number] 13:21:00 Test Item Value Reference Range Interpretation Comments CORONAVIRUS (COVID-19)BY POSITIVE A RES ULTS VERIFIED.C'd PCR (test code = TO [facility] [id number]) Angel Luis-Nurse, ICU, @1319, 07/28/2020 , KF. WHOLE BLOOD [id number] 13:20:00 Test Item Value Reference Range Interpretation Comments WHOLE BLOOD GLUCOSE 124 MG/DL 70-99 H Fastin g glucose (test code = POC GLU) normal <100 MG/DL- [employer] recommend ation WHOLE BLOOD [id number] 13:20:00 Test Item Value Reference Range Interpretation Comments WHOLE BLOOD GLUCOSE 110 MG/DL 70-99 Fastin g glucose (test code = POC GLU) normal <100 MG/DL- [employer] recommend ation [id number] 13:00:00 Test Item Value Reference Range Interpretation Comments K+ (test code = KSERUM) 3.4 MMOL/L 3.5-5.1 L [id number] 13:00:00 Test Item Value Reference Range Interpretation Comments MG (test code = MG) 1.7 mg/dL 1.6-2.3 WHOLE BLOOD [id number] 11:20:00 Test Item Value Reference Range Interpretation Comments WHOLE BLOOD GLUCOSE 100 MG/DL 70-99 Fastin g glucose (test code = POC GLU) normal <100 MG/DL- [employer] recommend ation ABDOMEN [id number] 10:11:00 [facility] : 1950 Sex: F[address], [place] [address]EELRRZFMGC IMAGING REPORTPatient Name: ANGY COLLAZODate of Service: [id number]: 70 Sex: F Order #: [id number] Room: [facility] 2SDOB: 1950 X-Ray Number: [id number] Record Number: [id number] Hospital Number: [id number] Physician: Jaswinder SHABAZZ Physician: Tamra COYNE.History: NG tube placement.Technique: Limited supine abdominal projection.Findings:The tip of the NG tube is in the gastric body near the antrum. The tube isappropriately position and ready for use.Electronically Signed By: Bhaskar Fletcher M.D., 07/28/2020 10:08 AMLegally authenticated by AYO Cheek 2020-07-28 10:08:46CHEST 1 VIEW [id number] 10:10:00 [facility] : 1950 Sex: F[address] [id number] IMAGING REPORTPatient Name: Kristan COLLAZO of Service: [id number]: 70 Sex: F Order #: [id number] Room: [facility] 2SDOB: 1950 X-Ray Number: [id number] Record Number: [id number] Hospital Number: [id number] Physician: Jaswinder SHABAZZ Physician: Rocky MEZAt:07/28/2020 9:55 [...] by AYO Cheek 2020-07-28 10:08:25PROTHROMBIN TIME WITH [id number] 08:25:00 Test Item Value Reference Range Interpretation Comments PROTHROMBIN TIME 13.5 SECONDS 10.1-12.7 H INR Usual R patricia = 2 (test code = PT) to 3 for pr evention of deep vein thrombosis (DVT ) INR (test code = INR) 1.2 [id number] 08:25:00 Test Item Value Reference Range Interpretation Comments PTT (test code = 24.7 SECONDS 25.0-36.5 L HEPARIN THE RAPEUTIC PTT) RANGE 57-92 SEC ONDS WHOLE BLOOD [id number] 08:15:00 Test Item Value Reference Range Interpretation Comments WHOLE BLOOD GLUCOSE 120 MG/DL 70-99 H Fastin g glucose (test code = POC GLU) normal <100 MG/DL- [employer] recommend ation CHEST 1 VIEW [id number] 07:15:00 [facility] : 1950 Sex: F[address] [id number] IMAGING REPORTPatient Name: ANGY COLLAZODate of Service: [id number]: 70 Sex: F Order #: [id number] Room: [facility] 2SDOB: 1950 X-Ray Number: [id number] Record Number: [id number] Hospital Number: [id number] Physician: Jaswinder SHABAZZ Physician: Karissa COYNE one view 07/28/2020History: Covid 19 infection, [...] by LINO PETE 2020-07-28 07:12:39BMP, BASIC METABOLIC [id number] 04:25:00 Test Item Value Reference Range Interpretation [...] glucose = GLUCOSE) normal <100 MG/ DL- [employer] recommendation* * CALCIUM (test code 7.7 MG/DL 8.4-10.2 L = CABLOOD) GFR (test code = 66 A GFR of >9 0 GFR) mL/min/1.73m2 mL/min/1.73m2 is considered norm al. The GFR calcula tion on patients ove r 70 years of age is not validated by e special education associate an d may not represent t he patients true r enal function. [id number] 03:05:00 Test Item Value Reference Range Interpretation [...] 5.3 K/UL 1.2-7.2 = NEUT) BLOOD GAS [id number] 02:55:00 Test Item Value Reference Range Interpretation Comments SITE (test code = LRAD See_Comment [Automate d message] SITE) The system [facility] generated this result transmitted ref erence range: [...] H [Automat ed message] BGCO) The system [facility] generated this result transmitted ref erence range: -1.5. Th e reference range was not used to interpr et this result as normal/abnormal . % MET HB (test code 0.8 % 0.4-1.5 = %MET HB) CAO2 (test code = 14.9 VOL% 15.7-21.6 L CAO2) PF/RATIO (test code 407.0 = PF/RATIO) ANTICOAG?: LAST DOSE?:WHOLE BLOOD [id number] 01:00:00 Test Item Value Reference Range Interpretation Comments WHOLE BLOOD GLUCOSE 119 MG/DL 70-99 Fastin g glucose (test code = POC GLU) normal <100 MG/DL- [employer] recommend ation WHOLE BLOOD [id number] 00:40:00 Test Item Value Reference Range Interpretation Comments WHOLE BLOOD GLUCOSE 114 MG/DL 70-99 H Fastin g glucose (test code = POC GLU) normal <100 MG/DL- [employer] recommend ation WHOLE BLOOD [id number] 00:40:00 Test Item Value Reference Range Interpretation Comments WHOLE BLOOD GLUCOSE 144 MG/DL 70-99 H Fastin g glucose (test code = POC GLU) normal <100 MG/DL- [employer] recommend ation WHOLE BLOOD [id number] 21:50:00 Test Item Value Reference Range Interpretation Comments WHOLE BLOOD GLUCOSE 135 MG/DL 70-99 H Fastin g glucose (test code = POC GLU) normal <100 MG/DL- [employer] recommend ation WHOLE BLOOD [id number] 21:10:00 Test Item Value Reference Range Interpretation Comments WHOLE BLOOD GLUCOSE 125 MG/DL 70-99 H Fastin g glucose (test code = POC GLU) normal <100 MG/DL- [employer] recommend ation [id number] 12:15:00 [facility] : 1950 Sex: FHEART RATE: 134 bpmRR Interval: 448 msAtrial Rate: 123 msP-R Interval: msP Duration: 0 msP Horizontal Hazel: degP Front Hazel: degQ Onset: 506 msQRSD Interval: 83 msQT Interval:294 msQTcB: 439 msQTcF: 384 msQRS Horizontal Hazel: -65 degQRS Hazel: -14 degI-40 Horizontal Hazel: 7 degI-40 Front Hazel: 60 degT-40 Horizontal Hazel: -90 degT-40 Front Hazel: -31 degT Horizontal Hazel: 70 degT Wave Hazel: 148 degS-T Horizontal Hazel: 177 degS-T Front Hazel: 201 degECG Severity: - ABNORMAL ECG-ECG Impression: Atrial fibrillationECG Impression: Low voltage, precordial leadsECG Impression: Repol abnrm suggests ischemia, lateral leadsWHOLE BLOOD GLUCOSE 2020-07-27 12:00:00 Test Item Value Reference Range Interpretation Comments WHOLE BLOOD GLUCOSE 132 MG/DL 70-99 H Fastin g glucose (test code = POC GLU) normal <100 MG/DL- [employer] recommend ation COVID SYMPTOMATIC ER [id number] 10:41:00 Test Item Value Reference Range Interpretation Comments CORONAVIRUS (COVID-19)BY PCR (test NEGATIVE code = [id number]) CHEST 1 VIEW [id number] 06:58:00 [facility] : 1950 [facility] [place] [id number] IMAGING REPORTPatient Name: ANGY COLLAZODate of Service: [id number]: 70 Sex: F Order #: [id number] Room: [facility] 2SDOB: 1950 X-Ray Number: [id number] Record Number: [id number] Hospital Number: [id number] Physician: Jaswinder SHABAZZ Physician: Armando RUGGIERO one [...] 6:56 AMLegally authenticated by LINO PETE 2020-07-27 06:56:[id number] 03:48:00 Test Item Value Reference Range Interpretation [...] (test code 7.2 K/UL 1.2-7.2 = NEUT) [id number] 03:46:00 Test Item Value Reference Range Interpretation [...] glucose = GLUCOSE) normal <100 MG/ DL- [employer] recommendation* * CALCIUM (test [...] of age is not validated by e special education associate an d may not represent t he patients true r enal function. BLOOD GAS [id number] 03:07:00 Test Item Value Reference Range Interpretation Comments SITE (test code = LRAD See_Comment [Automate d message] SITE) The system [facility] generated this result transmitted ref erence range: [...] H [Automat ed message] BGCO) The system [facility] generated this result transmitted ref erence range: -1.5. Th e reference range was not used to interpr et this result as normal/abnormal . % MET HB (test code 0.0 % 0.4-1.5 L = %MET HB) CAO2 (test code = 14.6 VOL% 15.7-21.6 L CAO2) PF/RATIO (test code 387.0 = PF/RATIO) ANTICOAG?: LAST DOSE?:WHOLE BLOOD [id number] 01:00:00 Test Item Value Reference Range Interpretation Comments WHOLE BLOOD GLUCOSE 122 MG/DL 70-99 H Fastin g glucose (test code = POC GLU) normal <100 MG/DL- [employer] recommend ation WHOLE BLOOD [id number] 21:10:00 Test Item Value Reference Range Interpretation Comments WHOLE BLOOD GLUCOSE 144 MG/DL 70-99 Fastin g glucose (test code = POC GLU) normal <100 MG/DL- [employer] recommend ation WHOLE BLOOD [id number] 17:30:00 Test Item Value Reference Range Interpretation Comments WHOLE BLOOD GLUCOSE 132 MG/DL 70-99 Fastin g glucose (test code = POC GLU) normal <100 MG/DL- [employer] recommend ation WHOLE BLOOD [id number] 12:15:00 Test Item Value Reference Range Interpretation Comments WHOLE BLOOD GLUCOSE 137 MG/DL 70-99 H Fastin g glucose (test code = POC GLU) normal <100 MG/DL- [employer] recommend ation WHOLE BLOOD [id number] 08:55:00 Test Item Value Reference Range Interpretation Comments WHOLE BLOOD GLUCOSE 110 MG/DL 70-99 Fastin g glucose (test code = POC GLU) normal <100 MG/DL- [employer] recommend ation CHEST 1 VIEW [id number] 07:26:00 [facility] : 1950 Sex: F[address] [id number] IMAGING REPORTPatient Name: Ester COLLAZOte of Service: [id number]: 70 Sex: F Order #: [id number] Room: [facility] 2SDOB: 1950 X-Ray Number: [id number] Record Number: [id number] Hospital Number: [id number] Physician: Jaswinder SHABAZZ Physician: Marianela RUGGIEROest:07/26/2020 3:29 AMHistory: Pneumonia, short of breath.Technique: Single AP chest projection.[facility] parison:July 25, 2020.Findings:Heart size is normal. There are diffuse bilateral interstitial pulmonaryparenchymal infiltrates. There is been no specific interval change. Thepositioning of the endotracheal tube and right- sided PICC line catheter areunchanged.Impression:No interval change or improve ment. Diffuse persistent bilateralinterstitial lung infiltrates.Electronically Signed By: Bhaskar Fletcher M.D., 07/26/2020 7:24 AMLegally authenticated by AYO Cheek 2020-07-26 07:24:13WHOLE BLOOD [id number] 06:55:00 Test Item Value Reference Range Interpretation Comments WHOLE BLOOD GLUCOSE 149 MG/DL 70-99 Fastin g glucose (test code = POC GLU) normal <100 MG/DL- [employer] recommend ation WHOLE BLOOD [id number] 05:40:00 Test Item Value Reference Range Interpretation Comments WHOLE BLOOD GLUCOSE 121 MG/DL 70-99 Fastin g glucose (test code = POC GLU) normal <100 MG/DL- [employer] recommend ation [id number] 04:15:00 Test Item Value Reference Range Interpretation [...] glucose = GLUCOSE) normal <100 MG/ DL- [employer] recommendation* * CALCIUM (test [...] of age is not validated by e special education associate an d may not represent t he patients true r enal function. [id number] 03:54:00 Test Item Value Reference Range Interpretation [...] 6.8 K/UL 1.2-7.2 = NEUT) BLOOD GAS [id number] 02:30:00 Test Item Value Reference Range Interpretation Comments SITE (test code = LRAD See_Comment [Automate d message] SITE) The system [facility] generated this result transmitted ref erence range: [...] H [Automat ed message] BGCO) The system [facility] generated this result transmitted ref erence range: -1.5. Th e reference range was not used to interpr et this result as normal/abnormal . % MET HB (test code 0.9 % 0.4-1.5 = %MET HB) CAO2 (test code = 14.2 VOL% 15.7-21.6 L CAO2) PF/RATIO (test code 270.0 = PF/RATIO) ANTICOAG?: LAST DOSE?:WHOLE BLOOD [id number] 02:15:00 Test Item Value Reference Range Interpretation Comments WHOLE BLOOD GLUCOSE 124 MG/DL 70-99 H Fastin g glucose (test code = POC GLU) normal <100 MG/DL- [employer] recommend ation WHOLE BLOOD [id number] 00:20:00 Test Item Value Reference Range Interpretation Comments WHOLE BLOOD GLUCOSE 121 MG/DL 70-99 Fastin g glucose (test code = POC GLU) normal <100 MG/DL- [employer] recommend ation WHOLE BLOOD [id number] 00:05:00 Test Item Value Reference Range Interpretation Comments WHOLE BLOOD GLUCOSE 115 MG/DL 70-99 Fastin g glucose (test code = POC GLU) normal <100 MG/DL- [employer] recommend ation HEPARIN ASSOC.AB [id number] 17:08:00 Test Item Value Reference Range Interpretation Comments HEP AB (test code = PLT HAT) 0.105 OD 0.000-0.400 [id number] 16:45:00 Test Item Value Reference Range Interpretation Comments K+ (test code = KSERUM) 4.0 MMOL/L 3.5-5.1 [id number] 16:45:00 Test Item Value Reference Range Interpretation Comments MG (test code = MG) 2.2 mg/dL 1.6-2.3 WHOLE BLOOD [id number] 16:30:00 Test Item Value Reference Range Interpretation Comments WHOLE BLOOD GLUCOSE 109 MG/DL 70-99 Fastin g glucose (test code = POC GLU) normal <100 MG/DL- [employer] recommend ation CHEST 1 VIEW [id number] 08:16:00 [facility] 1950 Sex: F[address] [id number] IMAGING REPORTPatient Name: Ester COLLAZOte of Service: [id number]: 70 Sex: F Order #: [id number] Room: [facility] 2SDOB: 1950 X-Ray Number: [id number] Record Number: [id number] Hospital Number: [id number] Physician: Jaswinder SHABAZZ Physician: Marianela RUGGIEROest:07/25/2020 4:06 [...] 8:13 AMLegally authenticated by AYO Cheek 2020-07-25 08:13:[id number] 05:01:00 Test Item Value Reference Range Interpretation [...] glucose = GLUCOSE) normal <100 MG/ DL- [employer] recommendation* * CALCIUM (test [...] of age is not validated by e special education associate an d may not represent t he patients true r enal function. [id number] 05:01:00 Test Item Value Reference Range Interpretation Comments MG (test code = MG) 2.5 mg/dL 1.6-2.3 H [id number] 05:01:00 Test Item Value Reference Range Interpretation Comments PHOSPHOR (test code = PHOSPHOR) 3.0 MG/DL 2.5-4.5 [id number] 03:10:00 Test Item Value Reference Range Interpretation [...] 5.7 K/UL 1.2-7.2 = NEUT) BLOOD GAS [id number] 02:54:00 Test Item Value Reference Range Interpretation Comments SITE (test code = LRAD See_Comment [Automate d message] SITE) The system [facility] generated this result transmitted ref erence range: [...] H [Automat ed message] BGCO) The system [facility] generated this result transmitted ref erence range: -1.5. Th e reference range was not used to interpr et this result as normal/abnormal . % MET HB (test code 0.7 % 0.4-1.5 = %MET HB) CAO2 (test code = 12.9 VOL% 15.7-21.6 L CAO2) PF/RATIO (test code 233 = PF/RATIO) ANTICOAG?: LAST DOSE?:WHOLE BLOOD [id number] 00:30:00 Test Item Value Reference Range Interpretation Comments WHOLE BLOOD GLUCOSE 87 MG/DL 70-99 Fastin g glucose (test code = POC GLU) normal <100 MG/DL- [employer] recommendation* * WHOLE BLOOD [id number] 23:05:00 Test Item Value Reference Range Interpretation Comments WHOLE BLOOD GLUCOSE 76 MG/DL 70-99 Fastin g glucose (test code = POC GLU) normal <100 MG/DL- [employer] recommendation* * WHOLE BLOOD [id number] 21:20:00 Test Item Value Reference Range Interpretation Comments WHOLE BLOOD GLUCOSE 87 MG/DL 70-99 Fastin g glucose (test code = POC GLU) normal <100 MG/DL- [employer] recommendation* * WHOLE BLOOD [id number] 13:10:00 Test Item Value Reference Range Interpretation Comments WHOLE BLOOD GLUCOSE 84 MG/DL 70-99 Fastin g glucose (test code = POC GLU) normal <100 MG/DL- [employer] recommendation* * WHOLE BLOOD [id number] 08:55:00 Test Item Value Reference Range Interpretation Comments WHOLE BLOOD GLUCOSE 70 MG/DL 70-99 Fastin g glucose (test code = POC GLU) normal <100 MG/DL- [employer] recommendation* * CHEST 1 VIEW [id number] 07:01:00 [facility] : 1950 Sex: F[address] [address]VDKRWSVHNN IMAGING REPORTPatient Name: ANGY COLLAZODate of Service: [id number]: 70 Sex: F Order #: [id number] Room: [facility] 2SDOB: 1950 X-Ray Number: [id number] Record Number: [id number] Hospital Number: [id number] Physician: Jaswinder SHABAZZ Physician: Maya BOONE one [...] 6:58 AMLegally authenticated by LINO PETE 2020-07-24 06:58:[id number] 06:42:00 Test Item Value Reference Range Interpretation [...] glucose = GLUCOSE) normal <100 MG/ DL- [employer] recommendation* * CALCIUM (test [...] of age is not validated by e special education associate an d may not represent t he patients true r enal function. [id number] 06:42:00 Test Item Value Reference Range Interpretation Comments MG (test code = MG) 2.8 mg/dL 1.6-2.3 H WHOLE BLOOD [id number] 06:35:00 Test Item Value Reference Range Interpretation Comments WHOLE BLOOD GLUCOSE 72 MG/DL 70-99 Fastin g glucose (test code = POC GLU) normal <100 MG/DL- [employer] recommendation* * WHOLE BLOOD [id number] 06:20:00 Test Item Value Reference Range Interpretation Comments WHOLE BLOOD GLUCOSE 75 MG/DL 70-99 Fastin g glucose (test code = POC GLU) normal <100 MG/DL- [employer] recommendation* * [id number] 04:36:00 Test Item Value Reference Range Interpretation [...] 5.7 K/UL 1.2-7.2 = NEUT) CROSSMATCH 10U [id number] 04:00:00 Test Item Value Reference Range Interpretation Comments PI (test code = PI) PTP SI (test code = SI) Transfused 1 UNIT [id number] 04:00:00 Test Item Value Reference Range Interpretation Comments PI (test code = PI) SALESPERSON TERRAZZO TILES SI (test code = SI) Transfused BLOOD GAS [id number] 02:58:00 Test Item Value Reference Range Interpretation Comments SITE (test code = LRAD See_Comment [Automate d message] SITE) The system [facility] generated this result transmitted ref erence range: [...] H [Automat ed message] BGCO) The system [facility] generated this result transmitted ref erence range: -1.5. Th e reference range was not used to interpr et this result as normal/abnormal . % MET HB (test code 0.9 % 0.4-1.5 = %MET HB) CAO2 (test code = 12.7 VOL% 15.7-21.6 L CAO2) PF/RATIO (test code 243.0 = PF/RATIO) ANTICOAG?: LAST DOSE?:WHOLE BLOOD [id number] 22:30:00 Test Item Value Reference Range Interpretation Comments WHOLE BLOOD GLUCOSE 71 MG/DL 70-99 Fastin g glucose (test code = POC GLU) normal <100 MG/DL- [employer] recommendation* * 1 UNIT [id number] 20:00:00 Test Item Value Reference Range Interpretation Comments PI (test code = PI) SALESPERSON TERRAZZO TILES SI (test code = SI) Transfused WHOLE BLOOD [id number] 17:05:00 Test Item Value Reference Range Interpretation Comments WHOLE BLOOD GLUCOSE 74 MG/DL 70-99 Fastin g glucose (test code = POC GLU) normal <100 MG/DL- [employer] recommendation* * WHOLE BLOOD [id number] 13:10:00 Test Item Value Reference Range Interpretation Comments WHOLE BLOOD GLUCOSE 74 MG/DL 70-99 Fastin g glucose (test code = POC GLU) normal <100 MG/DL- [employer] recommendation* * FIBRIN DEGRAD [id number] 08:34:00 Test Item Value Reference Range Interpretation Comments FDP (test code = FDP) <5 MCG/ML 0-5 LOT # (test code = LOT #) [id number] POS CNTL (test code = POS POSITIVE POSITIVE A CNTL) NEG CNTL (test code = NEG NEGATIVE NEGATIVE CNTL) EX DATE (test code = EX ) D-DIMER, [id number] 08:08:00 Test Item Value Reference Range Interpretation Comments D-DIMER (test 1579 ng/mL (FEU) 0-500 H VALUES OF QUANTITATIVE code = DDIMER) D-DIMER LESS THAN 499 ng/mL HAVE BEEN REPORTED TO BE ASSOCIATED WITH A LOW PROBABILITY OF DEEP VEIN THROMBOSIS/PULM ONARYEMB OLISM. THIS ERNESTO T ALONE SHOULD NOT BE U SED TO RULE OUT DVT/PE . PROTHROMBIN TIME WITH [id number] 08:06:00 Test Item Value Reference Range Interpretation Comments PROTHROMBIN TIME 13.0 SECONDS 10.1-12.7 H INR Usual R patricia = 2 (test code = PT) to 3 for pr evention of deep vein thrombosis (DVT ) INR (test code = INR) 1.1 [id number] 08:05:00 Test Item Value Reference Range Interpretation Comments PTT (test code = 23.0 SECONDS 25.0-36.5 L HEPARIN THE RAPEUTIC PTT) RANGE 57-92 SEC ONDS WHOLE BLOOD [id number] 07:35:00 Test Item Value Reference Range Interpretation Comments WHOLE BLOOD GLUCOSE 74 MG/DL 70-99 Fastin g glucose (test code = POC GLU) normal <100 MG/DL- [employer] recommendation* * CHEST 1 VIEW [id number] 07:17:00 [facility] 1950 Sex: F[address] [id number] IMAGING REPORTPatient Name: ANGY COLLAZODate of Service: [id number]: 70 Sex: F Order #: [id number] Room: [facility] 2SDOB: 1950 X-Ray Number: [id number] Record Number: [id number] Hospital Number: [id number] Physician: Jaswinder SHABAZZ Physician: Maya BOONE one [...] authenticated by LINO PETE 2020-07-23 07:14:47WHOLE BLOOD [id number] 06:50:00 Test Item Value Reference Range Interpretation Comments WHOLE BLOOD GLUCOSE 73 MG/DL 70-99 Fastin g glucose (test code = POC GLU) normal <100 MG/DL- [employer] recommendation* * [id number] 04:35:00 Test Item Value Reference Range Interpretation [...] glucose = GLUCOSE) normal <100 MG/ DL- [employer] recommendation* * CALCIUM (test [...] age is not validated by th e special education associate an d may not represent t he patients true r enal function. [id number] 04:35:00 Test Item Value Reference Range Interpretation Comments MG (test code = MG) 3.3 mg/dL 1.6-2.3 H [id number] 04:05:00 Test Item Value Reference Range Interpretation [...] See_Comment [Automate d message] SITE) The system [facility] generated this result transmitted ref erence range: [...] H [Automat ed message] BGCO) The system [facility] generated this result transmitted ref erence range: -1.5. Th e reference range was not used to interpr et this result as normal/abnormal . % MET HB (test code 0.9 % 0.4-1.5 = %MET HB) CAO2 (test code = 9.5 VOL% 15.7-21.6 L CAO2) PF/RATIO (test code 457.0 = PF/RATIO) ANTICOAG?: LAST DOSE?: RSLTS VERIFIED.GIVEN TO CHAR CAZARES, RN/208/0245/[id number]/CORYE LOPEZ,RRTWHOLE BLOOD [id number] 01:15:00 Test Item Value Reference Range Interpretation Comments WHOLE BLOOD GLUCOSE 84 MG/DL 70-99 Fastin g glucose (test code = POC GLU) normal <100 MG/DL- [employer] recommendation* * WHOLE BLOOD [id number] 21:45:00 Test Item Value Reference Range Interpretation Comments WHOLE BLOOD GLUCOSE 82 MG/DL 70-99 Fastin g glucose (test code = POC GLU) normal <100 MG/DL- [employer] recommendation* * OCCULT BLOOD, [id number] 20:23:00 Test Item Value Reference Range Interpretation Comments OCCULT BLOOD FECES (test code = POSITIVE NEGATIVE A OCCBLFEC) LOT# CRD (test code = LOT# CRD) 61302 EXP CRD (test code = EXP CRD) 07-20 LOT# DVL (test code = LOT# DVL) 50704 EXP DVL (test code = EXP DVL) 04-18 INT QC (test code = INT QC) PASSED 1 UNIT [id number] 20:00:00 Test Item Value Reference Range Interpretation Comments PI (test code = PI) SALESPERSON TERRAZZO TILES SI (test code = SI) Transfused WHOLE BLOOD [id number] 17:15:00 Test Item Value Reference Range Interpretation Comments WHOLE BLOOD GLUCOSE 74 MG/DL 70-99 Fastin g glucose (test code = POC GLU) normal <100 MG/DL- [employer] recommendation* * CT ABDOMEN/PELVIS [id number] 13:07:00 [facility] : 1950 Sex: F[address] [id number] IMAGING REPORTPatient Name: ERWIN COLLAZOReilly of Service: 36-54-2708Drg: 70 Sex: F Order #: [id number] Room: [facility] 2SDOB: 1950 X-Ray Number: [id number] Record Number: [id number] Hospital Number: [id number] Physician: Jaswinder SHABAZZ Physician: MICHAELA MEZA abdomen [...] PMLegally authenticated byAYO Cheek 2020-07-22 13:05:31WHOLE BLOOD [id number] 12:25:00 Test Item Value Reference Range Interpretation Comments WHOLE BLOOD GLUCOSE 90 MG/DL 70-99 Fastin g glucose (test code = POC GLU) normal <100 MG/DL- [employer] recommendation* * WHOLE BLOOD [id number] 08:45:00 Test Item Value Reference Range Interpretation Comments WHOLE BLOOD GLUCOSE 125 MG/DL 70-99 H Fastin g glucose (test code = POC GLU) normal <100 MG/DL- [employer] recommend ation CHEST 1 VIEW [id number] 07:23:00 [facility] : 1950 [facility]: [facility] [place], [place] [address]LUQBECLXGE IMAGING REPORTPatient Name: ANGY COLLAZODate of Service: 12-42-0537Iwc: 70 Sex: F Order #: [id number] Room: [facility] 2SDOB: 1950 X-Ray Number: [id number] Record Number: [id number] Hospital Number: [id number] Physician: Jaswinder SHABAZZ Physician: Maya BOONE one view 07/22/2020History: Covid 19 infection, pneumonia, intubationComparison: The prior dayTECHNIQUE: Semierect AP portable chest x-rayFINDINGS:Support devices are unchanged.Cardiac, hilar, and mediastinal structures are stable. Minimal bibasilardensities may be due to atelectasis or pneumonia. No new bony or softtissue abnormalities are identified.Impression:No significant change.Electr onically Signed By: Yeison Srivastava M.D., 07/22/2020 7:21 AMLegally authenticated by LINO PETE 2020-07-22 07:21:[id number] 06:20:00 Test Item Value Reference Range Interpretation [...] CHECKED x2 RESULTS VERIFIED.C'd TO nto/icu/620/caWHOLE BLOOD [id number] 05:35:00 Test Item Value Reference Range Interpretation Comments WHOLE BLOOD GLUCOSE 93 MG/DL 70-99 Fastin g glucose (test code = POC GLU) normal <100 MG/DL- [employer] recommendation* * [id number] 04:32:00 Test Item Value Reference Range Interpretation [...] glucose = GLUCOSE) normal <100 MG/ DL- [employer] recommendation* * CALCIUM (test [...] of age is not validated by e special education associate an d may not represent t he patients true r enal function. [id number] 04:32:00 Test Item Value Reference Range Interpretation Comments MG (test code = MG) 3.2 mg/dL 1.6-2.3 H WHOLE BLOOD [id number] 02:51:00 Test Item Value Reference Range Interpretation Comments WHOLE BLOOD GLUCOSE 109 MG/DL 70-99 Fastin g glucose (test code = POC GLU) normal <100 MG/DL- [employer] recommend ation BLOOD GAS [id number] 02:48:00 Test Item Value Reference Range Interpretation Comments SITE (test code = ARTHUR See_Comment [Automate d message] SITE) The system [facility] generated this result transmitted ref erence range: [...] H [Automat ed message] BGCO) The system [facility] generated this result transmitted ref erence range: -1.5. Th e reference range was not used to interpr et this result as normal/abnormal . % MET HB (test code 0.9 % 0.4-1.5 = %MET HB) CAO2 (test code = 9.1 VOL% 15.7-21.6 L CAO2) PF/RATIO (test code 363.0 = PF/RATIO) ANTICOAG?: LAST DOSE?: RSLTS VERIFIED.GIVEN TO CHAR CAZARES,RN/208/0245/[id number]/COREY LOPEZ,RRTWHOLE BLOOD [id number] 20:55:00 Test Item Value Reference Range Interpretation Comments WHOLE BLOOD GLUCOSE 127 MG/DL 70-99 Fastin g glucose (test code = POC GLU) normal <100 MG/DL- [employer] recommend ation WHOLE BLOOD [id number] 20:55:00 Test Item Value Reference Range Interpretation Comments WHOLE BLOOD GLUCOSE 130 MG/DL 70-99 H Fastin g glucose (test code = POC GLU) normal <100 MG/DL- [employer] recommend ation 1 UNIT [id number] 20:00:00 Test Item Value Reference Range Interpretation Comments PI (test code = PI) SALESPERSON TERRAZZO TILES SI (test code = SI) Transfused 1 UNIT [id number] 20:00:00 Test Item Value Reference Range Interpretation Comments PI (test code = PI) SALESPERSON TERRAZZO TILES SI (test code = SI) Transfused WHOLE BLOOD [id number] 15:35:00 Test Item Value Reference Range Interpretation Comments WHOLE BLOOD GLUCOSE 131 MG/DL 70-99 H Fastin g glucose (test code = POC GLU) normal <100 MG/DL- [employer] recommend ation [id number] 13:12:00 Test Item Value Reference Range Interpretation Comments HGB (test code = HGB) 7.0 G/DL 11.5-15.5 L HCT (test code = HCT) 22.0 % 34-46 L MCV (test code = MCV) 92.8 FL 80-98 MCHC (test code = MCHC) 31.8 G/DL 32.5-36.5 L RECEIVED BLOODWHOLE BLOOD [id number] 12:55:00 Test Item Value Reference Range Interpretation Comments WHOLE BLOOD GLUCOSE 120 MG/DL 70-99 H Fastin g glucose (test code = POC GLU) normal <100 MG/DL- [employer] recommend ation WHOLE BLOOD [id number] 09:00:00 Test Item Value Reference Range Interpretation Comments WHOLE BLOOD GLUCOSE 135 MG/DL 70-99 H Fastin g glucose (test code = POC GLU) normal <100 MG/DL- [employer] recommend ation CHEST 1 VIEW [id number] 07:35:00 [facility] : 1950 Sex: F[address] [id number] IMAGING REPORTPatient Name: Kristan COLLAZO of Service: [id number]: 70 Sex: F Order #: [id number] Room: 208/ A 2SDOB: 1950 X-Ray Number: [id number] Record Number: [id number] Hospital Number: [id number] Physician: Jaswinder SHABAZZ Physician: Maya BOONE one [...] 7:32 AMLegally authenticated by LINO PETE 2020-07-21 07:32:[id number] 04:44:00 Test Item Value Reference Range Interpretation Comments BLOOD TYPE (test O Rh Positive Comment for code = TYPE) Female s Rhogam may be indicated for patient dependi ng baby's Rh statu s. ANTIBODY SCREEN NEGATIVE NEGATIVE (test code = SCREEN) [id number] 04:14:00 Test Item Value Reference Range Interpretation [...] RESULTS VERIFIED.C'd TO sarah graves rn @ 0313/07-21-20/[id number] 03:38:00 Test Item Value Reference Range Interpretation Comments MG (test code = MG) 3.3 mg/dL 1.6-2.3 H [id number] 03:38:00 Test Item Value Reference Range Interpretation [...] glucose = GLUCOSE) normal <100 MG/ DL- [employer] recommendation* * CALCIUM (test [...] years of age is not validated by [facility] special education associate an d may not represent t he patients true r enal function. BLOOD GAS [id number] 03:02:00 Test Item Value Reference Range Interpretation Comments SITE (test code = ARTHUR See_Comment [Automate d message] SITE) The system [facility] generated this result transmitted ref erence range: [...] H [Automat ed message] BGCO) The system [facility] generated this result transmitted ref erence range: -1.5. Th e reference range was not used to interpr et this result as normal/abnormal . % MET HB (test code 1.2 % 0.4-1.5 = %MET HB) CAO2 (test code = 8.2 VOL% 15.7-21.6 L CAO2) PF/RATIO (test code 513.0 = PF/RATIO) ANTICOAG?: LAST DOSE?: RSLTS VERIFIED.GIVEN TO GASTON KENDALL,RN/208/0236/[id number]/COREY LOPEZ,SDWHOLE BLOOD [id number] 02:26:00 Test Item Value Reference Range Interpretation Comments WHOLE BLOOD GLUCOSE 136 MG/DL 70-99 H Fastin g glucose (test code = POC GLU) normal <100 MG/DL- [employer] recommend ation WHOLE BLOOD [id number] 00:40:00 Test Item Value Reference Range Interpretation Comments WHOLE BLOOD GLUCOSE 159 MG/DL 70-99 H Fastin g glucose (test code = POC GLU) normal <100 MG/DL- [employer] recommend ation WHOLE BLOOD [id number] 18:40:00 Test Item Value Reference Range Interpretation Comments WHOLE BLOOD GLUCOSE 128 MG/DL 70-99 H Fastin g glucose (test code = POC GLU) normal <100 MG/DL- [employer] recommend ation MRI BRAIN W/O [id number] 14:35:00 [facility] : 1950 Sex: [facility] [place], [place] [address]SENPBLNHYX IMAGING REPORTPatient Name: Kristan COLLAZO of Service: [id number]: 70 Sex: F Order #: [id number] Room: [facility] 2SDOB: 1950 X-Ray Number: [id number] Record Number: [id number] Hospital Number: [id number] Physician: Jacob SHABAZZering Physician: TIMO SHABAZZBrain MRI.History: [...] authenticated by AYO Cheek 2020-07-20 13:44:52WHOLE BLOOD [id number] 13:31:00 Test Item Value Reference Range Interpretation Comments WHOLE BLOOD GLUCOSE 159 MG/DL 70-99 H Fastin g glucose (test code = POC GLU) normal <100 MG/DL- [employer] recommend ation WHOLE BLOOD [id number] 09:45:00 Test Item Value Reference Range Interpretation Comments WHOLE BLOOD GLUCOSE 127 MG/DL 70-99 H Fastin g glucose (test code = POC GLU) normal <100 MG/DL- [employer] recommend ation WHOLE BLOOD [id number] 08:50:00 Test Item Value Reference Range Interpretation Comments WHOLE BLOOD GLUCOSE 148 MG/DL 70-99 H Fastin g glucose (test code = POC GLU) normal <100 MG/DL- [employer] recommend ation CHEST 1 VIEW [id number] 07:10:00 [facility] : 1950 Sex: [facility] [place] [id number] IMAGING REPORTPatient Name: Ester COLLAZOte of Service: [id number]: 70 Sex: F Order #: [id number] Room: [facility] 2SDOB: 1950 X-Ray Number: [id number] Record Number: [id number] Hospital Number: [id number] Physician: Jaswinder SHABAZZ Physician: Armando RUGGIERO one [...] AMLegallelsa authenticated by LINO PETE 2020-07-20 07:08:20BLOOD [id number] 06:59:00 Test Item Value Reference Range Interpretation Comments Report Text (test MOA 2020-07-15 1217 code = Report Text) Report Text7 (test BLOOD CULTURES HELD FOR code = Report 5 DAYS BEFORE FINAL Text7) Report Text8 (test code = Report Text8) Report Text9 (test [employer] code = Report MICROBIOLOGY SUGGESTS THAT Text9) Report Text10 (test MOST CASES OF BACTEREMIA code = Report ARE DETECTED BY USING Text10) Report Text11 (test THREE SETS OF SEPARATELY code = Report COLLECTED BLOOD CULTURES. Text11) Report Text12 (test [facility] 2020-07-15 1218 code = Report Text12) [...] Text17) Report Text18 (test [facility] 2020-07-15 1219 code = Report Text18) [...] code = Report Text27) Report Text28 (test [facility] 2020-07-20 659 code = Report Text28) Report Text29 (test NO GROWTH WITHIN 5 DAYS code = Report Text29) Report Text30 (test FINAL REPORT code = Report Text30) BLOOD [id number] 06:59:00 Test Item Value Reference Range Interpretation Comments Report Text (test [facility] 2020-07-15 1218 code = Report Text) Report Text7 (test BLOOD CULTURES HELD FOR code = Report 5 DAYS BEFORE FINAL Text7) Report Text8 (test code = Report Text8) Report Text9 (test [employer] code = Report MICROBIOLOGY SUGGESTS THAT Text9) Report Text10 (test MOST CASES OF BACTEREMIA code = Report ARE DETECTED BY USING Text10) Report Text11 (test THREE SETS OF SEPARATELY code = Report COLLECTED BLOOD CULTURES. Text11) Report Text12 (test [facility] 2020-07-15 1219 code = Report Text12) [...] Text17) Report Text18 (test [facility] 2020-07-15 1220 code = Report Text18) [...] code = Report Text30) BMP, BASIC METABOLIC [id number] 05:10:00 Test Item Value Reference Range Interpretation [...] glucose = GLUCOSE) normal <100 MG/ DL- [employer] recommendation* * CALCIUM (test code 8.3 MG/DL 8.4-10.2 L = CABLOOD) GFR (test code = 37 A GFR of >9 0 GFR) mL/min/1.73m2 mL/min/1.73m2 is considered norm al. The GFR calcula tion on patients ove r 70 years of age is not validated by e special education associate an d may not represent t he patients true r enal function. [id number] 05:01:00 Test Item Value Reference Range Interpretation [...] K/UL 1.2-7.2 H = NEUT) BLOOD GAS [id number] 03:58:00 Test Item Value Reference Range Interpretation Comments SITE (test code = ARTHUR See_Comment [Automate d message] SITE) The system [facility] generated this result transmitted ref erence range: [...] H [Automat ed message] BGCO) The system [facility] generated this result transmitted ref erence range: -1.5. Th e reference range was not used to interpr et this result as normal/abnormal . % MET HB (test code 1.1 % 0.4-1.5 = %MET HB) CAO2 (test code = 10.3 VOL% 15.7-21.6 L CAO2) PF/RATIO (test code 327.0 = PF/RATIO) ANTICOAG?: LAST DOSE?:WHOLE BLOOD [id number] 03:46:00 Test Item Value Reference Range Interpretation Comments WHOLE BLOOD GLUCOSE 156 MG/DL 70-99 H Fastin g glucose (test code = POC GLU) normal <100 MG/DL- [employer] recommend ation WHOLE BLOOD [id number] 21:00:00 Test Item Value Reference Range Interpretation Comments WHOLE BLOOD GLUCOSE 176 MG/DL 70-99 H Fastin g glucose (test code = POC GLU) normal <100 MG/DL- [employer] recommend ation WHOLE BLOOD [id number] 18:40:00 Test Item Value Reference Range Interpretation Comments WHOLE BLOOD GLUCOSE 154 MG/DL 70-99 H Fastin g glucose (test code = POC GLU) normal <100 MG/DL- [employer] recommend ation [id number] 15:16:00 Test Item Value Reference Range Interpretation Comments MG (test code = MG) 2.8 mg/dL 1.6-2.3 H WHOLE BLOOD [id number] 12:35:00 Test Item Value Reference Range Interpretation Comments WHOLE BLOOD GLUCOSE 140 MG/DL 70-99 H Fastin g glucose (test code = POC GLU) normal <100 MG/DL- [employer] recommend ation [id number] 11:31:00 Test Item Value Reference Range Interpretation Comments K+ (test code = KSERUM) 3.9 MMOL/L 3.5-5.1 CHEST 1 VIEW [id number] 09:39:00 [facility] 1950 [facility] [place] [id number] IMAGING REPORTPatient Name: ANGY COLLAZODateofilo of Service: [id number]: 70 Sex: F Order #: [id number] Room: [facility] 2SDOB: 1950 X-Ray Number: [id number] Record Number: [id number] Hospital Number: [id number] Physician: Jaswinder SHABAZZ Physician: Maddy COYNE: Chest [...] by MURTAZA HERNANDEZ JR 2020-07-19 09:37:27WHOLE BLOOD [id number] 09:00:00 Test Item Value Reference Range Interpretation Comments WHOLE BLOOD GLUCOSE 141 MG/DL 70-99 H Fastin g glucose (test code = POC GLU) normal <100 MG/DL- [employer] recommend ation WHOLE BLOOD [id number] 07:15:00 Test Item Value Reference Range Interpretation Comments WHOLE BLOOD GLUCOSE 135 MG/DL 70-99 H Fastin g glucose (test code = POC GLU) normal <100 MG/DL- [employer] recommend ation WHOLE BLOOD [id number] 04:45:00 Test Item Value Reference Range Interpretation Comments WHOLE BLOOD GLUCOSE 162 MG/DL 70-99 H Fastin g glucose (test code = POC GLU) normal <100 MG/DL- [employer] recommend ation BLOOD GAS [id number] 03:50:00 Test Item Value Reference Range Interpretation Comments SITE (test code = ARTHUR See_Comment [Automate d message] SITE) The system [facility] generated this result transmitted ref erence range: [...] H [Automat ed message] BGCO) The system [facility] generated this result transmitted ref erence range: -1.5. e reference range was not used to interpr et this result as normal/abnormal . % MET HB (test code 0.8 % 0.4-1.5 = %MET HB) CAO2 (test code = 13.2 VOL% 15.7-21.6 L CAO2) PF/RATIO (test code 293.0 = PF/RATIO) ANTICOAG?: LAST DOSE?:[id number] 03:04:00 Test Item Value Reference Range Interpretation Comments PHOSPHOR (test code = PHOSPHOR) 5.2 MG/DL 2.5-4.5 H [id number] 03:01:00 Test Item Value Reference Range Interpretation [...] glucose = GLUCOSE) normal <100 MG/ DL- [employer] recommendation* * CALCIUM (test [...] of age is not validated by e special education associate an d may not represent t he patients true r enal function. [id number] 03:01:00 Test Item Value Reference Range Interpretation Comments MG (test code = MG) 2.7 mg/dL 1.6-2.3 H [id number] 02:36:00 Test Item Value Reference Range Interpretation [...] K/UL 1.2-7.2 H = NEUT) WHOLE BLOOD [id number] 21:25:00 Test Item Value Reference Range Interpretation Comments WHOLE BLOOD GLUCOSE 157 MG/DL 70-99 H Fastin g glucose (test code = POC GLU) normal <100 MG/DL- [employer] recommend ation WHOLE BLOOD [id number] 20:55:00 Test Item Value Reference Range Interpretation Comments WHOLE BLOOD GLUCOSE 153 MG/DL 70-99 H Fastin g glucose (test code = POC GLU) normal <100 MG/DL- [employer] recommend ation WHOLE BLOOD [id number] 20:55:00 Test Item Value Reference Range Interpretation Comments WHOLE BLOOD GLUCOSE 150 MG/DL 70-99 H Fastin g glucose (test code = POC GLU) normal <100 MG/DL- [employer] recommend ation WHOLE BLOOD [id number] 18:55:00 Test Item Value Reference Range Interpretation Comments WHOLE BLOOD GLUCOSE 124 MG/DL 70-99 H Fastin g glucose (test code = POC GLU) normal <100 MG/DL- [employer] recommend ation WHOLE BLOOD [id number] 11:50:00 Test Item Value Reference Range Interpretation Comments WHOLE BLOOD GLUCOSE 149 MG/DL 70-99 H Fastin g glucose (test code = POC GLU) normal <100 MG/DL- [employer] recommend ation CHEST 1 VIEW [id number] 08:59:00 [facility] : 1950 Sex: F[address] [id number] IMAGING REPORTPatient Name: Kristan COLLAZO of Service: [id number]: 70 Sex: F Order #: [id number] Room: [facility] 2SDOB: 1950 X-Ray Number: [id number] Record Number: [id number] Hospital Number: [id number] Physician: Jaswinder SHABAZZ Physician: Maddy COYNE: Chest [...] by MURTAZA HERNANDEZ JR 2020-07-18 08:57:17WHOLE BLOOD [id number] 07:20:00 Test Item Value Reference Range Interpretation Comments WHOLE BLOOD GLUCOSE 155 MG/DL 70-99 H Fastin g glucose (test code = POC GLU) normal <100 MG/DL- [employer] recommend ation [id number] 05:22:00 Test Item Value Reference Range Interpretation [...] glucose = GLUCOSE) normal <100 MG/ DL- [employer] recommendation* * CALCIUM (test [...] of age is not validated by e special education associate an d may not represent t he patients true r enal function. [id number] 04:29:00 Test Item Value Reference Range Interpretation [...] K/UL 1.2-7.2 H = NEUT) BLOOD GAS [id number] 04:12:00 Test Item Value Reference Range Interpretation Comments SITE (test code = ARTHUR See_Comment [Automate d message] SITE) The system [facility] generated this result transmitted ref erence range: [...] H [Automat ed message] BGCO) The system [facility] generated this result transmitted ref erence range: -1.5. Th e reference range was not used to interpr et this result as normal/abnormal . % MET HB (test code 1.0 % 0.4-1.5 = %MET HB) CAO2 (test code = 16.3 VOL% 15.7-21.6 CAO2) PF/RATIO (test code 288.0 = PF/RATIO) ANTICOAG?: LAST DOSE?:WHOLE BLOOD [id number] 01:46:00 Test Item Value Reference Range Interpretation Comments WHOLE BLOOD GLUCOSE 148 MG/DL 70-99 H Fastin g glucose (test code = POC GLU) normal <100 MG/DL- [employer] recommend ation WHOLE BLOOD [id number] 18:25:00 Test Item Value Reference Range Interpretation Comments WHOLE BLOOD GLUCOSE 131 MG/DL 70-99 H Fastin g glucose (test code = POC GLU) normal <100 MG/DL- [employer] recommend ation CT HEAD W/O [id number] 17:50:00 [facility] : 1950 [facility]: [facility] [place] [id number] IMAGING REPORTPatient Name: ANGY COLLAZODateofilo of Service: [id number]: 70 Sex: F Order #: [id number] Room: [facility] 2SDOB: 1950 X-Ray Number: [id number] Record Number: [id number] Hospital Number: [id number] Physician: Jaswinder SHABAZZ Physician: Amarjit COYNE CT [...] an alternate te st method. WHOLE BLOOD [id number] 11:50:00 Test Item Value Reference Range Interpretation Comments WHOLE BLOOD GLUCOSE 136 MG/DL 70-99 H Fastin g glucose (test code = POC GLU) normal <100 MG/DL- [employer] recommend ation CULTURE, [id number] 10:16:00 Test Item Value Reference Range Interpretation [...] REPORT code = Report Text14) WHOLE BLOOD [id number] 09:45:00 Test Item Value Reference Range Interpretation Comments WHOLE BLOOD GLUCOSE 132 MG/DL 70-99 H Fastin g glucose (test code = POC GLU) normal <100 MG/DL- [employer] recommend ation CHEST 1 VIEW [id number] 07:37:00 [facility] : 1950 Sex: F[address] [id number] IMAGING REPORTPatient Name: ANGY COLLAZODate of Service: [id number]: 70 Sex: F Order #: [id number] Room: [facility] 2SDOB: 1950 X-Ray Number: [id number] Record Number: [id number] Hospital Number: [id number] Physician: Jaswinder SHABAZZ Physician: Karissa COYNE one view 07/17/2020History: Covid 19 infection, pneumonia, [...] authenticated by LINO PETE 2020-07-17 07:35:24WHOLE BLOOD [id number] 07:25:00 Test Item Value Reference Range Interpretation Comments WHOLE BLOOD GLUCOSE 153 MG/DL 70-99 H Fastin g glucose (test code = POC GLU) normal <100 MG/DL- [employer] recommend ation [id number] 05:02:00 Test Item Value Reference Range Interpretation [...] code 11.0 K/UL 1.2-7.2 H = NEUT) [id number] 04:36:00 Test Item Value Reference Range Interpretation [...] glucose = GLUCOSE) normal <100 MG/ DL- [employer] recommendation* * CALCIUM (test [...] years of age is not validated by [facility] special education associate an d may not represent t he patients true r enal function. BLOOD GAS [id number] 03:11:00 Test Item Value Reference Range Interpretation Comments SITE (test code = ARTHUR See_Comment [Automate d message] SITE) The system [facility] generated this result transmitted ref erence range: [...] H [Automat ed message] BGCO) The system [facility] generated this result transmitted ref erence range: -1.5. Th e reference range was not used to interpr et this result as normal/abnormal . % MET HB (test code 0.7 % 0.4-1.5 = %MET HB) CAO2 (test code = 17.3 VOL% 15.7-21.6 CAO2) PF/RATIO (test code 245.0 = PF/RATIO) ANTICOAG?: LAST DOSE?:WHOLE BLOOD [id number] 01:30:00 Test Item Value Reference Range Interpretation Comments WHOLE BLOOD GLUCOSE 155 MG/DL 70-99 H Fastin g glucose (test code = POC GLU) normal <100 MG/DL- [employer] recommend ation WHOLE BLOOD [id number] 21:45:00 Test Item Value Reference Range Interpretation Comments WHOLE BLOOD GLUCOSE 118 MG/DL 70-99 H Fastin g glucose (test code = POC GLU) normal <100 MG/DL- [employer] recommend ation WHOLE BLOOD [id number] 18:40:00 Test Item Value Reference Range Interpretation Comments WHOLE BLOOD GLUCOSE 134 MG/DL 70-99 H Fastin g glucose (test code = POC GLU) normal <100 MG/DL- [employer] recommend ation WHOLE BLOOD [id number] 13:40:00 Test Item Value Reference Range Interpretation Comments WHOLE BLOOD GLUCOSE 150 MG/DL 70-99 H Fastin g glucose (test code = POC GLU) normal <100 MG/DL- [employer] recommend ation CDIFF AMPLIFIED [id number] 12:50:00 Test Item Value Reference Range Interpretation Comments C DIFFICILE TESTING NEGATIVE NEGATIVE PSEUDOME MBRANOUS COLITIS, ON STOOL (test code BY JAN COMER, IS = CDIFF) DIARRHEA, IN PA TIENTS OLDER THAN 6 MO NTHS OF AGE, CAUSED BY LONG-TERM ANTIBIOTIC EXPO SURE. NON-DIARRHEAL S TOOLS WILL NOT BE TESTED. C.DIFF LOT # (test [id number] code = CDIFFLOT) C. DIFF EXPIRATION 09-17 DATE (test code = CDIFFEXP) WHOLE BLOOD [id number] 08:35:00 Test Item Value Reference Range Interpretation Comments WHOLE BLOOD GLUCOSE 118 MG/DL 70-99 H Fastin g glucose (test code = POC GLU) normal <100 MG/DL- [employer] recommend ation WHOLE BLOOD [id number] 08:00:00 Test Item Value Reference Range Interpretation Comments WHOLE BLOOD GLUCOSE 135 MG/DL 70-99 H Fastin g glucose (test code = POC GLU) normal <100 MG/DL- [employer] recommend ation CHEST 1 VIEW [id number] 06:49:00 [facility] : 1950 [facility] [place] [id number] IMAGING REPORTPatient Name: ANGY COLLAZOBlairteofilo of Service: [id number]: 70 Sex: F Order #: [id number] Room: [facility] 2SDOB: 1950 X-Ray Number: [id number] Record Number: [id number] Hospital Number: [id number] Physician: Jaswinder SHABAZZ Physician: Tori COYNE Chest, 07/16/2020 5:02 AMHISTORY: f/u. Covid 19 pneumonia. Shortness of breath.COMPARI SON: 07/15/2020TECHNIQUE: Portable chest 1 viewFINDINGS:The life-support devices are unchanged. Thecardiac silhouette is stable.There are persistent diffuse interstitial infiltrates throughout the lungsbilaterally. There is no effusion or pneumothorax.IMPRESSION:Stable chest.Electronically Signed By: Cyril Yen M.D., 07/16/2020 6:46 AMLegally authenticated by [employer] 2020-07-16 06:46:[id number] 05:55:00 Test Item Value Reference Range Interpretation [...] not ex clude an infection. WHOLE BLOOD [id number] 05:30:00 Test Item Value Reference Range Interpretation Comments WHOLE BLOOD GLUCOSE 142 MG/DL 70-99 H Fastin g glucose (test code = POC GLU) normal <100 MG/DL- [employer] recommend ation THYROID STIMULATION [id number] 05:21:00 Test Item Value Reference Range Interpretation Comments TSH (test code = TSH) 3.18 UIU/ML 0.465-4.68 FREE [id number] 05:21:00 Test Item Value Reference Range Interpretation Comments FT4 (test code = FT4) 1.20 ng/dL 0.78-2.19 FREE [id number] 05:21:00 Test Item Value Reference Range Interpretation Comments FREE T3 (test code = T3FREE) 1.69 pg/mL 2.77-5.27 L BLOOD GAS [id number] 04:41:00 Test Item Value Reference Range Interpretation Comments SITE (test code = ARTHUR See_Comment [Automate d message] SITE) The system [facility] generated this result transmitted ref erence range: [...] H [Automat ed message] BGCO) The system [facility] generated this result transmitted ref erence range: -1.5. Th e reference range was not used to interpr et this result as normal/abnormal . % MET HB (test code 1.1 % 0.4-1.5 = %MET HB) CAO2 (test code = 18.0 VOL% 15.7-21.6 CAO2) PF/RATIO (test code 190 = PF/RATIO) ANTICOAG?: LAST DOSE?:[id number] 04:11:00 Test Item Value Reference Range Interpretation [...] code 12.3 K/UL 1.2-7.2 H = NEUT) [id number] 03:55:00 Test Item Value Reference Range Interpretation [...] glucose = GLUCOSE) normal <100 MG/ DL- [employer] recommendation* * CALCIUM (test [...] of age is not validated by e special education associate an d may not represent t he patients true r enal function. [id number] 03:55:00 Test Item Value Reference Range Interpretation Comments MG (test code = MG) 2.6 mg/dL 1.6-2.3 H [id number] 03:55:00 Test Item Value Reference Range Interpretation Comments PHOSPHOR (test code = PHOSPHOR) 4.2 MG/DL 2.5-4.5 WHOLE BLOOD [id number] 02:02:00 Test Item Value Reference Range Interpretation Comments WHOLE BLOOD GLUCOSE 135 MG/DL 70-99 H Fastin g glucose (test code = POC GLU) normal <100 MG/DL- [employer] recommend ation WHOLE BLOOD [id number] 19:00:00 Test Item Value Reference Range Interpretation Comments WHOLE BLOOD GLUCOSE 119 MG/DL 70-99 H Fastin g glucose (test code = POC GLU) normal <100 MG/DL- [employer] recommend ation GRAM [id number] 14:03:00 Test Item Value Reference Range Interpretation Comments Report Text (test code CWJ 2020-07-15 1403 = Report Text) Report Text7 (test MANY WBC SEEN code = Report Text7) Report Text8 (test CWJ 2020-07-15 1404 code = Report Text8) Report Text9 (test RARE GRAM POSITIVE code = Report Text9) COCCI SEEN [id number] 13:03:00 Test Item Value Reference Range Interpretation [...] = YEAST) MANY /HPF NONE WHOLE BLOOD [id number] 12:45:00 Test Item Value Reference Range Interpretation Comments WHOLE BLOOD GLUCOSE 159 MG/DL 70-99 H Fastin g glucose (test code = POC GLU) normal <100 MG/DL- [employer] recommend ation WHOLE BLOOD [id number] 10:05:00 Test Item Value Reference Range Interpretation Comments WHOLE BLOOD GLUCOSE 106 MG/DL 70-99 Fastin g glucose (test code = POC GLU) normal <100 MG/DL- [employer] recommend ation BLOOD GAS [id number] 08:45:00 Test Item Value Reference Range Interpretation Comments SITE (test code = AL See_Comment [Automate d message] SITE) The system [facility] generated this result transmitted ref erence range: [...] H [Automat ed message] BGCO) The system [facility] generated this result transmitted ref erence range: -1.5. Th e reference range was not used to interpr et this result as normal/abnormal . % MET HB (test code 0.7 % 0.4-1.5 = %MET HB) CAO2 (test code = 17.4 VOL% 15.7-21.6 CAO2) PF/RATIO (test code 183 = PF/RATIO) ANTICOAG?: LAST DOSE?:CHEST 1 VIEW [id number] 07:16:00 [facility] : 1950 Sex: F[address] [id number] IMAGING REPORTPatient Name: ANGY COLLAZODate of Service: [id number]: 70 Sex: F Order #: [id number] Room: [facility] 2SDOB: 1950 X-Ray Number: [id number] Record Number: [id number] Hospital Number: [id number] Physician: Jaswinder SHABAZZ Physician: Karissa COYNE one [...] authenticated by LINO PETE 2020-07-15 07:13:47WHOLE BLOOD [id number] 06:10:00 Test Item Value Reference Range Interpretation Comments WHOLE BLOOD GLUCOSE 96 MG/DL 70-99 Fastin g glucose (test code = POC GLU) normal <100 MG/DL- [employer] recommendation* * [id number] 03:59:00 Test Item Value Reference Range Interpretation [...] glucose = GLUCOSE) normal <100 MG/ DL- [employer] recommendation* * CALCIUM (test [...] of age is not validated by e special education associate an d may not represent t he patients true r enal function. [id number] 03:21:00 Test Item Value Reference Range Interpretation [...] K/UL 1.2-7.2 H = NEUT) BLOOD GAS [id number] 02:44:00 Test Item Value Reference Range Interpretation Comments SITE (test code = ARTHUR See_Comment [Automate d message] SITE) The system [facility] generated this result transmitted ref erence range: [...] H [Automat ed message] BGCO) The system [facility] generated this result transmitted ref erence range: -1.5. Th e reference range was not used to interpr et this result as normal/abnormal . % MET HB (test code 1.1 % 0.4-1.5 = %MET HB) CAO2 (test code = 18.1 VOL% 15.7-21.6 CAO2) PF/RATIO (test code 188 = PF/RATIO) ANTICOAG?: LAST DOSE?:WHOLE BLOOD [id number] 02:35:00 Test Item Value Reference Range Interpretation Comments WHOLE BLOOD GLUCOSE 111 MG/DL 70-99 H Fastin g glucose (test code = POC GLU) normal <100 MG/DL- [employer] recommend ation WHOLE BLOOD [id number] 02:35:00 Test Item Value Reference Range Interpretation Comments WHOLE BLOOD GLUCOSE 137 MG/DL 70-99 H Fastin g glucose (test code = POC GLU) normal <100 MG/DL- [employer] recommend ation WHOLE BLOOD [id number] 02:35:00 Test Item Value Reference Range Interpretation Comments WHOLE BLOOD GLUCOSE 171 MG/DL 70-99 Fastin g glucose (test code = POC GLU) normal <100 MG/DL- [employer] recommend ation WHOLE BLOOD [id number] 00:30:00 Test Item Value Reference Range Interpretation Comments WHOLE BLOOD GLUCOSE 117 MG/DL 70-99 H Fastin g glucose (test code = POC GLU) normal <100 MG/DL- [employer] recommend ation WHOLE BLOOD [id number] 16:50:00 Test Item Value Reference Range Interpretation Comments WHOLE BLOOD GLUCOSE 148 MG/DL 70-99 H Fastin g glucose (test code = POC GLU) normal <100 MG/DL- [employer] recommend ation [id number] 14:16:00 Test Item Value Reference Range Interpretation Comments MG (test code = MG) 2.4 mg/dL 1.6-2.3 H [id number] 13:51:00 Test Item Value Reference Range Interpretation Comments K+ (test code = KSERUM) 4.2 MMOL/L 3.5-5.1 WHOLE BLOOD [id number] 08:30:00 Test Item Value Reference Range Interpretation Comments WHOLE BLOOD GLUCOSE 105 MG/DL 70-99 Fastin g glucose (test code = POC GLU) normal <100 MG/DL- [employer] recommend ation BLOOD GAS [id number] 08:06:00 Test Item Value Reference Range Interpretation Comments SITE (test code = ARTHUR See_Comment [Automate d message] SITE) The system [facility] generated this result transmitted ref erence range: [...] H [Automat ed message] BGCO) The system [facility] generated this result transmitted ref erence range: -1.5. Th e reference range was not used to interpr et this result as normal/abnormal . % MET HB (test code 1.1 % 0.4-1.5 = %MET HB) CAO2 (test code = 19.0 VOL% 15.7-21.6 CAO2) PF/RATIO (test code 150.0 = PF/RATIO) ANTICOAG?: LAST DOSE?:CHEST 1 VIEW [id number] 07:16:00 [facility] : 1950 [facility]: [facility] [place], [place] [id number] IMAGING REPORTPatient Name: Kristan COLLAZO of Service: [id number]: 70 Sex: F Order #: [id number] Room: [facility] 2SDOB: 1950 X-Ray Number: [id number] Record Number: [id number] Hospital Number: [id number] Physician: Jaswinder SHABAZZ Physician: Karissa COYNE one [...] AMLegally authenticated by LEIA 2020-07-14 07:14:26WHOLE BLOOD [id number] 06:15:00 Test Item Value Reference Range Interpretation Comments WHOLE BLOOD GLUCOSE 107 MG/DL 70-99 Fastin g glucose (test code = POC GLU) normal <100 MG/DL- [employer] recommend ation WHOLE BLOOD [id number] 05:40:00 Test Item Value Reference Range Interpretation Comments WHOLE BLOOD GLUCOSE 104 MG/DL 70-99 Fastin g glucose (test code = POC GLU) normal <100 MG/DL- [employer] recommend ation [id number] 05:30:00 Test Item Value Reference Range Interpretation Comments MG (test code = MG) 2.2 mg/dL 1.6-2.3 [id number] 04:20:00 Test Item Value Reference Range Interpretation [...] code 8.5 K/UL 1.2-7.2 H = NEUT) [id number] 04:19:00 Test Item Value Reference Range Interpretation [...] glucose = GLUCOSE) normal <100 MG/ DL- [employer] recommendation* * CALCIUM (test [...] years of age is not validated by [facility] special education associate an d may not represent t he patients true r enal function. BLOOD GAS [id number] 03:06:00 Test Item Value Reference Range Interpretation Comments SITE (test code = ARTHUR See_Comment [Automate d message] SITE) The system [facility] generated this result transmitted ref erence range: [...] H [Automat ed message] BGCO) The system [facility] generated this result transmitted ref erence range: -1.5. Th e reference range was not used to interpr et this result as normal/abnormal . % MET HB (test code 0.8 % 0.4-1.5 = %MET HB) CAO2 (test code = 16.9 VOL% 15.7-21.6 CAO2) PF/RATIO (test code 138.0 = PF/RATIO) ANTICOAG?: LAST DOSE?:WHOLE BLOOD [id number] 23:45:00 Test Item Value Reference Range Interpretation Comments WHOLE BLOOD GLUCOSE 119 MG/DL 70-99 H Fastin g glucose (test code = POC GLU) normal <100 MG/DL- [employer] recommend ation WHOLE BLOOD [id number] 18:10:00 Test Item Value Reference Range Interpretation Comments WHOLE BLOOD GLUCOSE 198 MG/DL 70-99 H Fastin g glucose (test code = POC GLU) normal <100 MG/DL- [employer] recommend ation WHOLE BLOOD [id number] 16:30:00 Test Item Value Reference Range Interpretation Comments WHOLE BLOOD GLUCOSE 101 MG/DL 70-99 Fastin g glucose (test code = POC GLU) normal <100 MG/DL- [employer] recommend ation BLOOD GAS [id number] 14:21:00 Test Item Value Reference Range Interpretation Comments SITE (test code = ARTLINE See_Comment [Automate d message] SITE) The system [facility] generated this result transmitted ref erence range: [...] See_Comment [Automat ed message] BGCO) The system [facility] generated this result transmitted ref erence range: -1.5. Th e reference range was not used to interpr et this result as normal/abnormal . % MET HB (test code 1.4 % 0.4-1.5 = %MET HB) CAO2 (test code = 17.7 VOL% 15.7-21.6 CAO2) PF/RATIO (test code 174.0 = PF/RATIO) ANTICOAG?: NA LAST DOSE?:BLOOD GAS [id number] 09:30:00 Test Item Value Reference Range Interpretation Comments SITE (test code = ARTLINE See_Comment [Automate d message] SITE) The system [facility] generated this result transmitted ref erence range: [...] See_Comment [Automat ed message] BGCO) The system [facility] generated this result transmitted ref erence range: -1.5. Th e reference range was not used to interpr et this result as normal/abnormal . % MET HB (test code 1.0 % 0.4-1.5 = %MET HB) CAO2 (test code = 16.9 VOL% 15.7-21.6 CAO2) PF/RATIO (test code 184.0 = PF/RATIO) ANTICOAG?: LAST DOSE?:WHOLE BLOOD [id number] 08:45:00 Test Item Value Reference Range Interpretation Comments WHOLE BLOOD GLUCOSE 111 MG/DL 70-99 H Fastin g glucose (test code = POC GLU) normal <100 MG/DL- [employer] recommend ation CHEST 1 VIEW [id number] 07:26:00 [facility] : 1950 Sex: F[address] [address]KDTVUOTCHN IMAGING REPORTPatient Name: ANGY COLLAZODate of Service: [id number]: 70 Sex: F Order #: [id number] Room: [facility] A 2SDOB: 1950 X-Ray Number: [id number] Record Number: [id number] Hospital Number: [id number] Physician: Jaswinder SHABAZZ Physician: Armando RUGGIERO one [...] authenticated by LINO PETE 2020-07-13 07:24:16BLOOD GAS [id number] 06:25:00 Test Item Value Reference Range Interpretation Comments SITE (test code = ARTHUR See_Comment [Automate d message] SITE) The system [facility] generated this result transmitted ref erence range: [...] H [Automat ed message] BGCO) The system [facility] generated this result transmitted ref erence range: -1.5. Th e reference range was not used to interpr et this result as normal/abnormal . % MET HB (test code 0.9 % 0.4-1.5 = %MET HB) CAO2 (test code = 16.2 VOL% 15.7-21.6 CAO2) PF/RATIO (test code 230.0 = PF/RATIO) ANTICOAG?: LAST DOSE?:WHOLE BLOOD [id number] 06:10:00 Test Item Value Reference Range Interpretation Comments WHOLE BLOOD GLUCOSE 113 MG/DL 70-99 H Fastin g glucose (test code = POC GLU) normal <100 MG/DL- [employer] recommend ation [id number] 04:40:00 Test Item Value Reference Range Interpretation Comments MG (test code = MG) 2.1 mg/dL 1.6-2.3 [id number] 04:31:00 Test Item Value Reference Range Interpretation [...] (test code 7.1 K/UL 1.2-7.2 = NEUT) [id number] 03:36:00 Test Item Value Reference Range Interpretation [...] glucose = GLUCOSE) normal <100 MG/ DL- [employer] recommendation* * CALCIUM (test [...] of age is not validated by e special education associate an d may not represent t he patients true r enal function. BLOOD GAS [id number] 02:57:00 Test Item Value Reference Range Interpretation Comments SITE (test code = ARTHUR See_Comment [Automate d message] SITE) The system [facility] generated this result transmitted ref erence range: [...] H [Automat ed message] BGCO) The system [facility] generated this result transmitted ref erence range: -1.5. Th e reference range was not used to interpr et this result as normal/abnormal . % MET HB (test code 0.9 % 0.4-1.5 = %MET HB) CAO2 (test code = 16.1 VOL% 15.7-21.6 CAO2) PF/RATIO (test code 224.0 = PF/RATIO) ANTICOAG?: LAST DOSE?:WHOLE BLOOD [id number] 00:35:00 Test Item Value Reference Range Interpretation Comments WHOLE BLOOD GLUCOSE 159 MG/DL 70-99 Fastin g glucose (test code = POC GLU) normal <100 MG/DL- [employer] recommend ation WHOLE BLOOD [id number] 00:35:00 Test Item Value Reference Range Interpretation Comments WHOLE BLOOD GLUCOSE 175 MG/DL 70-99 H Fastin g glucose (test code = POC GLU) normal <100 MG/DL- [employer] recommend ation WHOLE BLOOD [id number] 18:15:00 Test Item Value Reference Range Interpretation Comments WHOLE BLOOD GLUCOSE 196 MG/DL 70-99 H Fastin g glucose (test code = POC GLU) normal <100 MG/DL- [employer] recommend ation WHOLE BLOOD [id number] 16:30:00 Test Item Value Reference Range Interpretation Comments WHOLE BLOOD GLUCOSE 166 MG/DL 70-99 H Fastin g glucose (test code = POC GLU) normal <100 MG/DL- [employer] recommend ation WHOLE BLOOD [id number] 16:30:00 Test Item Value Reference Range Interpretation Comments WHOLE BLOOD GLUCOSE 173 MG/DL 70-99 H Fastin g glucose (test code = POC GLU) normal <100 MG/DL- [employer] recommend ation WHOLE BLOOD [id number] 16:30:00 Test Item Value Reference Range Interpretation Comments WHOLE BLOOD GLUCOSE 203 MG/DL 70-99 H Fastin g glucose (test code = POC GLU) normal <100 MG/DL- [employer] recommend ation WHOLE BLOOD [id number] 16:30:00 Test Item Value Reference Range Interpretation Comments WHOLE BLOOD GLUCOSE 179 MG/DL 70-99 H Fastin g glucose (test code = POC GLU) normal <100 MG/DL- [employer] recommend ation WHOLE BLOOD [id number] 16:30:00 Test Item Value Reference Range Interpretation Comments WHOLE BLOOD GLUCOSE 210 MG/DL 70-99 H Fastin g glucose (test code = POC GLU) normal <100 MG/DL- [employer] recommend ation [id number] 14:09:00 Test Item Value Reference Range Interpretation Comments MG (test code = MG) 2.0 mg/dL 1.6-2.3 ECHO 2D [id number] 13:11:00 [facility] : 1950 [facility]: [facility]CHOCARDIOGRAM REPORTName: ANGY COLLAZO Study Date: 07/11/2020 11:29 AMMRN: [id number] Patient Location: 2S\\S\\208\\S\\AHR: 110DOB: 1950 (M/d/yyyy) Gender: FemaleAge: 70 yrsHeight: 60 in Weight: 235 lbBSA: 2.0 [id number] For Study: COVID-19, Pneumonia, Eval. EFProceduresA two-dimensional [...] 07/12/2020y: 01:12 PMOrdering Physician: Courtney Physician: DEIDRA [id number] 12:16:00 Test Item Value Reference Range Interpretation Comments K+ (test code = KSERUM) 4.0 MMOL/L 3.5-5.1 WHOLE BLOOD [id number] 09:40:00 Test Item Value Reference Range Interpretation Comments WHOLE BLOOD GLUCOSE 175 MG/DL 70-99 H Fastin g glucose (test code = POC GLU) normal <100 MG/DL- [employer] recommend ation CHEST 1 VIEW [id number] 07:13:00 [facility] DOB: 1950 [facility] [place], [place] [address]TYZPQJWBHN IMAGING REPORTPatient Name: ANGY COLLAZODate of Service: [id number]: 70 Sex: F Order #: [id number] Room: [facility] 2SDOB: 1950 X-Ray Number: [id number] Record Number: [id number] Hospital Number: [id number] Physician: Jaswinder SHABAZZ Physician: Armando RUGGIERO one [...] AMLegally authenticated by LINO PETE 2020-07-12 07:10:53BLOOD [id number] 06:34:00 Test Item Value Reference Range Interpretation Comments Report Text (test [facility] 2020-07-072131 code = Report Text) Report Text7 (test BLOOD CULTURES HELD FOR code = Report 5 DAYS BEFORE FINAL Text7) Report Text8 (test code = Report Text8) Report Text9 (test [employer] code = Report MICROBIOLOGY SUGGESTS THAT Text9) Report Text10 (test MOST CASES OF BACTEREMIA code = Report ARE DETECTED BY USING Text10) Report Text11 (test THREE SETS OF SEPARATELY code = Report COLLECTED BLOOD CULTURES. Text11) Report Text12 (test [facility] 2020-07-072132 code = Report Text12) Report Text13 [...] code = Report Text17) Report Text18 (test [facility] 2020-07-072133 code = Report Text18) Report Text19 [...] FINAL REPORT code = Report Text31) BLOOD [id number] 06:34:00 Test Item Value Reference Range Interpretation Comments Report Text (test [facility] 2020-07-072130 code = Report Text) Report Text7 (test BLOOD CULTURES HELD FOR code = Report 5 DAYS BEFORE FINAL Text7) Report Text8 (test code = Report Text8) Report Text9 (test [employer] code = Report MICROBIOLOGY SUGGESTS THAT Text9) Report Text10 (test MOST CASES OF BACTEREMIA code = Report ARE DETECTED BY USING Text10) Report Text11 (test THREE SETS OF SEPARATELY code = Report COLLECTED BLOOD CULTURES. Text11) Report Text12 (test [facility] 2020-07-072131 code = Report Text12) Report Text13 [...] code = Report Text17) Report Text18 (test [facility] 2020-07-072132 code = Report Text18) Report Text19 [...] (test FINAL REPORT code = Report Text31) [id number] 05:20:00 Test Item Value Reference Range Interpretation Comments MG (test code = MG) 1.9 mg/dL 1.6-2.3 BLOOD GAS [id number] 03:57:00 Test Item Value Reference Range Interpretation Comments SITE (test code = ARTLINE See_Comment [Automate d message] SITE) The system [facility] generated this result transmitted ref erence range: [...] H [Automat ed message] BGCO) The system [facility] generated this result transmitted ref erence range: -1.5. Th e reference range was not used to interpr et this result as normal/abnormal . % MET HB (test code 1.2 % 0.4-1.5 = %MET HB) CAO2 (test code = 16.5 VOL% 15.7-21.6 CAO2) PF/RATIO (test code 156.0 = PF/RATIO) ANTICOAG?: LAST DOSE?:[id number] 03:04:00 Test Item Value Reference Range Interpretation [...] glucose = GLUCOSE) normal <100 MG/ DL- [employer] recommendation* * CALCIUM (test [...] of age is not validated by e special education associate an d may not represent t he patients true r enal function. [id number] 02:51:00 Test Item Value Reference Range Interpretation [...] 5.7 K/UL 1.2-7.2 = NEUT) WHOLE BLOOD [id number] 22:25:00 Test Item Value Reference Range Interpretation Comments WHOLE BLOOD GLUCOSE 178 MG/DL 70-99 H Fastin g glucose (test code = POC GLU) normal <100 MG/DL- [employer] recommend ation [id number] 21:14:00 [facility] : 1950 Sex: FHEART RATE: 159 bpmRR Interval: 377 msAtrial Rate: 174 msP-R Interval: msP Duration: 0 msP Horizontal Hazel: degP Front Hazel: degQ Onset: 502 msQRSD Interval: 89 msQT Interval:294 msQTcB: 479 msQTcF: 407 msQRS Horizontal Hazel: -23 degQRS Hazel: -13 degI-40 Horizontal Hazel: -8 degI-40 Front Hazel: 30 degT-40 Horizontal Hazel: -30 degT-40 Front Hazel: -23 degT Horizontal Hazel: 47 degT Wave Hazel: 121 degS-T Horizontal Hazel: 185 degS-T Front Hazel: 193 degECG Severity: - ABNORMAL ECG -ECG Impression: Atrial fibrillation with rapid V-rateECG Impression: Low voltage, precordial leadsECG Impression: Probable LVH with secondary repol abnrmECG Impression: Repolarization changes could also be due to ischemia or digitalis effectWHOLE BLOOD [id number] 16:05:00 Test Item Value Reference Range Interpretation Comments WHOLE BLOOD GLUCOSE 182 MG/DL 70-99 H Fastin g glucose (test code = POC GLU) normal <100 MG/DL- [employer] recommend ation WHOLE BLOOD [id number] 11:30:00 Test Item Value Reference Range Interpretation Comments WHOLE BLOOD GLUCOSE 200 MG/DL 70-99 H Fastin g glucose (test code = POC GLU) normal <100 MG/DL- [employer] recommend ation CHEST 1 VIEW [id number] 07:03:00 [facility] : 1950 Sex: F[address] [address]EPMQHHYMOD IMAGING REPORTPatient Name: ANGY COLLAZODate of Service: [id number]: 70 Sex: F Order #: [id number] Room: [facility] 2SDOB: 1950 X-Ray Number: [id number] Record Number: [id number] Hospital Number: [id number] Physician: Jaswinder SHABAZZ Physician: Armando RUGGIERO one [...] LINO PETE 2020-07-11 07:00:35GIVE 1 UNIT CONVALESCENT [id number] 06:40:00 Test Item Value Reference Range Interpretation Comments GIVE 1 UNIT CONVALESCENT FFP (test ISSUED code = CFFP) GIVE 1 UNIT CONVALESCENT [id number] 06:40:00 Test Item Value Reference Range Interpretation Comments GIVE 1 UNIT CONVALESCENT FFP (test ISSUED code = CFFP) THYROID STIMULATION [id number] 04:25:00 Test Item Value Reference Range Interpretation Comments TSH (test code = TSH) 0.08 UIU/ML 0.465-4.68 L FREE [id number] 04:25:00 Test Item Value Reference Range Interpretation Comments FT4 (test code = FT4) 1.45 ng/dL 0.78-2.19 [id number] 04:25:00 Test Item Value Reference Range Interpretation [...] code 6.2 K/UL 1.2-7.2 = NEUT) FREE [id number] 04:25:00 Test Item Value Reference Range Interpretation Comments FREE T3 (test code = T3FREE) 1.88 pg/mL 2.77-5.27 L [id number] 04:08:00 Test Item Value Reference Range Interpretation [...] glucose = GLUCOSE) normal <100 MG/ DL- [employer] recommendation* * CALCIUM (test [...] of age is not validated by e special education associate an d may not represent t he patients true r enal function. [id number] 03:59:00 Test Item Value Reference Range Interpretation Comments MG (test code = MG) 2.1 mg/dL 1.6-2.3 [id number] 03:59:00 Test Item Value Reference Range Interpretation Comments PHOSPHOR (test code = PHOSPHOR) 4.1 MG/DL 2.5-4.5 BLOOD GAS [id number] 03:06:00 Test Item Value Reference Range Interpretation Comments SITE (test code = ARTHUR See_Comment [Automate d message] SITE) The system [facility] generated this result transmitted ref erence range: [...] H [Automat ed message] BGCO) The system [facility] generated this result transmitted ref erence range: -1.5. Th e reference range was not used to interpr et this result as normal/abnormal . % MET HB (test code 0.9 % 0.4-1.5 = %MET HB) CAO2 (test code = 14.2 VOL% 15.7-21.6 L CAO2) PF/RATIO (test code 160.0 = PF/RATIO) ANTICOAG?: LAST DOSE?:[id number] 22:47:00 Test Item Value Reference Range Interpretation Comments MG (test code = MG) 2.2 mg/dL 1.6-2.3 [id number] 22:46:00 Test Item Value Reference Range Interpretation Comments K+ (test code = KSERUM) 4.2 MMOL/L 3.5-5.1 WHOLE BLOOD [id number] 17:40:00 Test Item Value Reference Range Interpretation Comments WHOLE BLOOD GLUCOSE 211 MG/DL 70-99 H Fastin g glucose (test code = POC GLU) normal <100 MG/DL- [employer] recommend ation CULTURE, [id number] 13:00:00 Test Item Value Reference Range Interpretation [...] FINAL REPORT code = Report Text12) CULTURE, [id number] 12:57:00 Test Item Value Reference Range Interpretation [...] REPORT code = Report Text12) WHOLE BLOOD [id number] 12:50:00 Test Item Value Reference Range Interpretation Comments WHOLE BLOOD GLUCOSE 222 MG/DL 70-99 H Fastin g glucose (test code = POC GLU) normal <100 MG/DL- [employer] recommend ation [id number] 11:41:00 Test Item Value Reference Range Interpretation Comments K+ (test code = KSERUM) 3.4 MMOL/L 3.5-5.1 L [id number] 11:41:00 Test Item Value Reference Range Interpretation Comments MG (test code = MG) 2.2 mg/dL 1.6-2.3 WHOLE BLOOD [id number] 11:25:00 Test Item Value Reference Range Interpretation Comments WHOLE BLOOD GLUCOSE 188 MG/DL 70-99 H Fastin g glucose (test code = POC GLU) normal <100 MG/DL- [employer] recommend ation WHOLE BLOOD [id number] 07:50:00 Test Item Value Reference Range Interpretation Comments WHOLE BLOOD GLUCOSE 83 MG/DL 70-99 Fastin g glucose (test code = POC GLU) normal <100 MG/DL- [employer] recommendation* * WHOLE BLOOD [id number] 07:50:00 Test Item Value Reference Range Interpretation Comments WHOLE BLOOD GLUCOSE 170 MG/DL 70-99 H Fastin g glucose (test code = POC GLU) normal <100 MG/DL- [employer] recommend ation CHEST 1 VIEW [id number] 07:30:00 [facility] : 1950 Sex: F[address] [address]FZYZQLMABL IMAGING REPORTPatient Name: ANGY COLLAZODate of Service: [id number]: 70 Sex: F Order #: [id number] Room: [facility] A 2SDOB: 1950 X-Ray Number: [id number] Record Number: [id number] Hospital Number: [id number] Physician: Jaswinder SHABAZZ Physician: Marianela RUGGIEROest:07/10/2020 3:56 AMHistory: Respiratory failure.Technique: Single AP chest projection.Comparison: July 09, 2020Findings:The heart size is normal. There are diffuse bilateral interstitial lunginfiltrates which appear unchanged. The positioning of the endotracheal, NGtube, and right-sided centralvenous catheter are unchanged.Impression:No interval change or improvement.Electronically Signed By: Bhaskar Fletcher M.D., 07/10/2020 7:27 AMLegally authenticated by AYO Cheek 2020-07-10 07:27:43WHOLE BLOOD [id number] 05:50:00 Test Item Value Reference Range Interpretation Comments WHOLE BLOOD GLUCOSE 201 MG/DL 70-99 H Fastin g glucose (test code = POC GLU) normal <100 MG/DL- [employer] recommend ation [id number] 04:23:00 Test Item Value Reference Range Interpretation Comments FERRITIN (test code = FERR) 633 NG/ML 11-264 H [id number] 03:44:00 Test Item Value Reference Range Interpretation [...] glucose = GLUCOSE) normal <100 MG/ DL- [employer] recommendation* * CALCIUM (test [...] of age is not validated by e special education associate an d may not represent t he patients true r enal function. [id number] 03:44:00 Test Item Value Reference Range Interpretation Comments LDH (test code = LDH) 1180 U/L 313-618 H C-REACTIVE [id number] 03:44:00 Test Item Value Reference Range Interpretation Comments CRP (test code = CRP) 6.0 mg/dL 0.5-1.0 H [id number] 03:44:00 Test Item Value Reference Range Interpretation [...] code 5.6 K/UL 1.2-7.2 = NEUT) D-DIMER, [id number] 03:33:00 Test Item Value Reference Range Interpretation Comments D-DIMER (test 2342 ng/mL (FEU) 0-500 H VALUES OF QUANTITATIVE code = DDIMER) D-DIMER LESS THAN 499 ng/mL HAVE BEEN REPORTED TO BE ASSOCIATED WITH A LOW PROBABILITY OF DEEP VEIN THROMBOSIS/PULM ONARYEMB OLISM. THIS ERNESTO T ALONE SHOULD NOT BE U SED TO RULE OUT DVT/PE . BLOOD GAS [id number] 02:53:00 Test Item Value Reference Range Interpretation Comments SITE (test code = ARTHUR See_Comment [Automate d message] SITE) The system [facility] generated this result transmitted ref erence range: [...] H [Automat ed message] BGCO) The system [facility] generated this result transmitted ref erence range: -1.5. Th e reference range was not used to interpr et this result as normal/abnormal . % MET HB (test code 1.1 % 0.4-1.5 = %MET HB) CAO2 (test code = 14.6 VOL% 15.7-21.6 L CAO2) PF/RATIO (test code 193.0 = PF/RATIO) ANTICOAG?: LAST DOSE?:WHOLE BLOOD [id number] 00:00:00 Test Item Value Reference Range Interpretation Comments WHOLE BLOOD GLUCOSE 236 MG/DL 70-99 H Fastin g glucose (test code = POC GLU) normal <100 MG/DL- [employer] recommend ation WHOLE BLOOD [id number] 21:00:00 Test Item Value Reference Range Interpretation Comments WHOLE BLOOD GLUCOSE 220 MG/DL 70-99 H Fastin g glucose (test code = POC GLU) normal <100 MG/DL- [employer] recommend ation WHOLE BLOOD [id number] 20:45:00 Test Item Value Reference Range Interpretation Comments WHOLE BLOOD GLUCOSE 185 MG/DL 70-99 Fastin g glucose (test code = POC GLU) normal <100 MG/DL- [employer] recommend ation WHOLE BLOOD [id number] 12:10:00 Test Item Value Reference Range Interpretation Comments WHOLE BLOOD GLUCOSE 185 MG/DL 70-99 H Fastin g glucose (test code = POC GLU) normal <100 MG/DL- [employer] recommend ation WHOLE BLOOD [id number] 12:10:00 Test Item Value Reference Range Interpretation Comments WHOLE BLOOD GLUCOSE 155 MG/DL 70-99 Fastin g glucose (test code = POC GLU) normal <100 MG/DL- [employer] recommend ation WHOLE BLOOD [id number] 12:10:00 Test Item Value Reference Range Interpretation Comments WHOLE BLOOD GLUCOSE 160 MG/DL 70-99 Fastin g glucose (test code = POC GLU) normal <100 MG/DL- [employer] recommend ation WHOLE BLOOD [id number] 09:10:00 Test Item Value Reference Range Interpretation Comments WHOLE BLOOD GLUCOSE 180 MG/DL 70-99 H Fastin g glucose (test code = POC GLU) normal <100 MG/DL- [employer] recommend ation CHEST 1 VIEW [id number] 06:21:00 [facility] : 1950 Sex: F[address] [address]FANVGJEKDO IMAGING REPORTPatient Name: Kristan COLLAZO of Service: [id number]: 70 Sex: F Order #: [id number] Room: [facility] 2SDOB: 1950 X-Ray Number: [id number] Record Number: [id number] Hospital Number: [id number] Physician: Jaswinder SHABAZZ Physician: Shilo RUGGIERO Chest, 07/09/2020 5:12 AMHISTORY: f/u. Covid 19 pneumonia. Shortness of breath. Cough.COMPARISON: 07/08/2020TECHNIQUE: Portable chest 1 viewFINDINGS:The life- support devices are unchanged. The cardiac silhouette is stable.There are persistent interstitial infiltrates throughout the lungsbilaterally. There is no effusion or pneumothorax.IMPRESSION:Stable chest.Electronically Signed By: Wes Yen M.D., 07/09/2020 6:19 AMLegally authenticated by SCOT POLLOCK 2020-07-09 06:19:26WHOLE BLOOD [id number] 06:05:00 Test Item Value Reference Range Interpretation Comments WHOLE BLOOD GLUCOSE 170 MG/DL 70-99 Fastin g glucose (test code = POC GLU) normal <100 MG/DL- [employer] recommend ation [id number] 05:20:00 Test Item Value Reference Range Interpretation Comments FERRITIN (test code = FERR) 975 NG/ML 11-264 H C-REACTIVE [id number] 05:07:00 Test Item Value Reference Range Interpretation Comments CRP (test code = CRP) 15.8 mg/dL 0.5-1.0 H [id number] 05:06:00 Test Item Value Reference Range Interpretation [...] glucose = GLUCOSE) normal <100 MG/ DL- [employer] recommendation* * CALCIUM (test [...] of age is not validated by e special education associate an d may not represent t he patients true r enal function. D-DIMER, [id number] 05:03:00 Test Item Value Reference Range Interpretation Comments D-DIMER (test 2768 ng/mL (FEU) 0-500 H VALUES OF QUANTITATIVE code = DDIMER) D-DIMER LESS THAN 499 ng/mL HAVE BEEN REPORTED TO BE ASSOCIATED WITH A LOW PROBABILITY OF DEEP VEIN THROMBOSIS/PULM ONARYEMB OLISM. THIS ERNESTO T ALONE SHOULD NOT BE U SED TO RULE OUT DVT/PE . [id number] 04:35:00 Test Item Value Reference Range Interpretation Comments LDH (test code = LDH) 1561 U/L 313-618 H [id number] 04:29:00 Test Item Value Reference Range Interpretation [...] 5.0 K/UL 1.2-7.2 = NEUT) BLOOD GAS [id number] 02:27:00 Test Item Value Reference Range Interpretation Comments SITE (test code = ARTHUR See_Comment [Automate d message] SITE) The system [facility] generated this result transmitted ref erence range: [...] H [Automat ed message] BGCO) The system [facility] generated this result transmitted ref erence range: -1.5. Th e reference range was not used to interpr et this result as normal/abnormal . % MET HB (test code 0.7 % 0.4-1.5 = %MET HB) CAO2 (test code = 13.3 VOL% 15.7-21.6 L CAO2) PF/RATIO (test code 74.0 = PF/RATIO) ANTICOAG?: LAST DOSE?:WHOLE BLOOD [id number] 21:50:00 Test Item Value Reference Range Interpretation Comments WHOLE BLOOD GLUCOSE 171 MG/DL 70-99 Fastin g glucose (test code = POC GLU) normal <100 MG/DL- [employer] recommend ation WHOLE BLOOD [id number] 21:30:00 Test Item Value Reference Range Interpretation Comments WHOLE BLOOD GLUCOSE 166 MG/DL 70-99 H Fastin g glucose (test code = POC GLU) normal <100 MG/DL- [employer] recommend ation WHOLE BLOOD [id number] 16:45:00 Test Item Value Reference Range Interpretation Comments WHOLE BLOOD GLUCOSE 148 MG/DL 70-99 H Fastin g glucose (test code = POC GLU) normal <100 MG/DL- [employer] recommend ation WHOLE BLOOD [id number] 10:25:00 Test Item Value Reference Range Interpretation Comments WHOLE BLOOD GLUCOSE 150 MG/DL 70-99 H Fastin g glucose (test code = POC GLU) normal <100 MG/DL- [employer] recommend ation CHEST 1 VIEW [id number] 07:47:00 [facility] : 1950 Sex: F[address] [id number] IMAGING REPORTPatient Name: ANGY COLLAZOUna of Service: [id number]: 70 Sex: F Order #: [id number] Room: [facility] A 2SDOB: 1950 X-Ray Number: [id number] Record Number: [id number] Hospital Number: [id number] Physician: Jaswinder SHABAZZ Physician: ARMANDO RUGGIERO ONE [...] an stat basis and preliminary report [facility] the [employer] service near the time of theexam.Electronically Signed By: Yeison Srivastava M.D., 07/08/2020 7:44 AMLegally authenticated by LINO PETE 2020-07-08 07:44:28ABDOMEN 1 [id number] 07:10:00 [facility] : 1950 Sex: F[address] [address]MEMBVXEPIZ IMAGING REPORTPatient Name: ANGY COLLAZODate of Service: [id number]: 70 Sex: F Order #: [id number] Room: [facility] 2SDOB: 1950 X-Ray Number: [id number] Record Number: [id number] Hospital Number: [id number] Physician: Jaswinder SHABAZZ Physician: Daria RUGGIEROm: Abdomen [...] MURTAZA HERNANDEZ JR 2020-07-08 07:07:42CHEST 1 VIEW FCXKQJJL6699-87-87 07:04:00[facility] 1950 Sex: F [address] [address]YKHFRCBOSW IMAGING REPORTPatient Name: ANGY COLLAZODate of Service: [id number]: 70 Sex: F Order #: [id number] Room: [facility] 2SDOB: 1950 X-Ray Number: [id number] Record Number: [id number] Hospital Number: [id number] Physician: Jaswinder SHABAZZ Physician: Armando RUGGIERO one [...] 7:02 AMLegally authenticated by LINO PETE 2020-07-08 07:02:63EOPJLNTTM3359-97-56 05:30:00 Test Item Value Reference Range Interpretation Comments MG (test code = MG) 2.2 mg/dL 1.6-2.3 CGSWPOJUBJ1687-09-23 05:30:00 Test Item Value Reference Range Interpretation Comments PHOSPHOR (test code = PHOSPHOR) 3.8 MG/DL 2.5-4.5 [id number] 04:44:00 Test Item Value Reference Range Interpretation Comments FERRITIN (test code = FERR) 2330 NG/ML 11-264 H [id number] 03:43:00 Test Item Value Reference Range Interpretation Comments LDH (test code = LDH) 2205 U/L 313-618 H C-REACTIVE ZWSTBHU7442-86-42 03:43:00 Test Item Value Reference Range Interpretation Comments CRP (test code = CRP) 18.5 mg/dL 0.5-1.0 H COVID SYMPTOMATIC ER GROR2736-10-01 03:27:00 Test Item Value Reference Range Interpretation Comments CORONAVIRUS (COVID-19)BY POSITIVE A RES ULTS VERIFIED.C'd PCR (test code = [facility] @ [id number]) 0325 07-08-2020* S [id number] 03:21:00 Test Item Value Reference Range Interpretation [...] glucose = GLUCOSE) normal <100 MG/ DL- [employer] recommendation* * CALCIUM (test [...] of age is not validated by e special education associate an d may not represent t he patients true r enal function. D-DIMER, [id number] 03:05:00 Test Item Value Reference Range Interpretation Comments D-DIMER (test 2605 ng/mL (FEU) 0-500 H VALUES OF QUANTITATIVE code = DDIMER) D-DIMER LESS THAN 499 ng/mL HAVE BEEN REPORTED TO BE ASSOCIATED WITH A LOW PROBABILITY OF DEEP VEIN THROMBOSIS/PULM ONARYEMB OLISM. THIS ERNESTO T ALONE SHOULD NOT BE U SED TO RULE OUT DVT/PE . BLOOD GAS IBCOUKNP2052-19-14 02:39:00 Test Item Value Reference Range Interpretation Comments SITE (test code = ARTHUR See_Comment [Automate d message] SITE) The system [facility] generated this result transmitted ref erence range: [...] H [Automat ed message] BGCO) The system [facility] generated this result transmitted ref erence range: -1.5. Th e reference range was not used to interpr et this result as normal/abnormal . % MET HB (test code 0.6 % 0.4-1.5 = %MET HB) CAO2 (test code = 16.4 VOL% 15.7-21.6 CAO2) PF/RATIO (test code 88.0 = PF/RATIO) ANTICOAG?: LAST DOSE?:[id number] 00:17:00 Test Item Value Reference Range Interpretation [...] ng/mL do not ex clude an infection. [id number] 23:18:00 Test Item Value Reference Range Interpretation [...] (test code = NEGATIVE NONE BACTERIA) D-DIMER, IEJLVNQZPITI8784-53-24 23:08:00 Test Item Value Reference Range Interpretation Comments D-DIMER (test 1882 ng/mL (FEU) 0-500 H VALUES OF QUANTITATIVE code = DDIMER) D-DIMER LESS THAN 499 ng/mL HAVE BEEN REPORTED TO BE ASSOCIATED WITH A LOW PROBABILITY OF DEEP VEIN THROMBOSIS/PULM ONARYEMB OLISM. THIS ERNESTO T ALONE SHOULD NOT BE U SED TO RULE OUT DVT/PE . PROTHROMBIN TIME WITH [id number] 22:45:00 Test Item Value Reference Range Interpretation Comments PROTHROMBIN TIME 15.6 SECONDS 10.1-12.7 H INR Usual R patricia = 2 (test code = PT) to 3 for pr evention of deep vein thrombosis (DVT ) INR (test code = INR) 1.4 [id number] 22:45:00 Test Item Value Reference Range Interpretation Comments PTT (test code = 24.9 SECONDS 25.0-36.5 L HEPARIN THE RAPEUTIC PTT) RANGE 57-92 SEC ONDS [id number] 22:23:00 Test Item Value Reference Range Interpretation Comments FERRITIN (test code = FERR) 449 NG/ML 11-264 H [id number] 22:09:00 Test Item Value Reference Range Interpretation Comments BLOOD TYPE (test O Rh Positive Comment for code = TYPE) Female s Rhogam may be indicated for patient dependi ng baby's Rh statu s. ANTIBODY SCREEN NEGATIVE NEGATIVE (test code = SCREEN) C-REACTIVE [id number] 21:55:00 Test Item Value Reference Range Interpretation Comments CRP (test code = CRP) 18.2 mg/dL 0.5-1.0 H [id number] 21:55:00 Test Item Value Reference Range Interpretation Comments LDH (test code = LDH) 2051 U/L 313-618 H [id number] 21:46:00 Test Item Value Reference Range Interpretation [...] glucose = GLUCOSE) normal <100 MG/ DL- [employer] recommendation* * CALCIUM (test [...] of age is not validated by e special education associate an d may not represent t he patients true r enal function. BLOOD GAS [id number] 21:28:00 Test Item Value Reference Range Interpretation Comments SITE (test code = ARTHUR See_Comment [Automate d message] SITE) The system [facility] generated this result transmitted ref erence range: [...] H [Automat ed message] BGCO) The system [facility] generated this result transmitted ref erence range: -1.5. Th e reference range was not used to interpr et this result as normal/abnormal . % MET HB (test code 1.1 % 0.4-1.5 = %MET HB) CAO2 (test code = 17.4 VOL% 15.7-21.6 CAO2) PF/RATIO (test code 109.0 = PF/RATIO) ANTICOAG?: LAST DOSE?:[id number] 21:18:00 Test Item Value Reference Range Interpretation [...] K/UL 1.2-7.2 H = NEUT) BLOOD GAS [id number] 20:21:00 Test Item Value Reference Range Interpretation Comments SITE (test code = LRAD See_Comment [Automate d message] SITE) The system [facility] generated this result transmitted ref erence range: [...] = PF/RATIO) ANTICOAG?: LAST DOSE?:BG LAB ARTERIAL [id number] 20:21:00 Test Item Value Reference Range Interpretation Comments SITE (test code = LRAD See_Comment [Automate d message] The SITE) system which ge nerated this result tra nsmitted reference range : -SITE. The reference r patricia was not used to int erpret this result as normal/abnormal . ALLENS (test code = POS ALLENS) BGLAC (test code = 11.0 mg/dL 5.0-18.0 BGLAC) URINALYSIS W/ LOWRHGJMIJG3902-36-09 19:18:00 Test Item Value Reference Range Interpretation [...] 516) SOURCE(BEAKER) (test code = Urine, Voided 6214) CT, BRAIN, WITHOUT LPDMXWGV9116-79-70 18:57:00Reason for exam:->headacheWhat is the patient's sedation [...] MDReport Verified Date/Time: 02/09/2017 18:57:54 Reading Location: [facility] Radiology Reading Room CREATINE KINASE (CK), TOTAL AND [id number] 17:04:00 Test Item Value Reference Range Interpretation Comments CREATINE KINASE TOTAL (BEAKER) 108 U/L 29-200 (test code = 380) CREATINE KINASE-MB (BEAKER) (test 0.8 ng/mL 0.0-6.6 code = 750) CREATINE KINASE-MB INDEX (BEAKER) 0.7 % (test code = 395) CK-MB Reference Range:<6.7 Normal6.7-10.0 Borderline>10.0 AbnormalTROPONIN [id number] 17:04:00 Test Item Value Reference Range Interpretation [...] failure, acidosis, acute neurological disease, and persistent tachyarrhythmia.PT/[id number] 17:02:00 Test Item Value Reference Range Interpretation [...] for patients with mechanical heart valves.BASIC METABOLIC [id number] 16:58:00 Test Item Value Reference Range Interpretation [...] GFR. RAD, CHEST, PA OR AP, 1 [id number] 16:55:00Reason for exam:->chest painShould this be performed [...] [place] Verified Date/Time: 02/09/2017 16:55:35 Reading Location: [facility] Radiology Reading Room CBC W/PLT COUNT & AUTO [id number] 16:34:00 Test Item Value Reference Range Interpretation [...] PERCENT (BEAKER) (test code = 2801) POCT-GLUCOSE [id number] 16:22:00 Test Item Value Reference Range Interpretation Comments POC-GLUCOSE METER 105 mg/dL 70-110 [facility] AT [facility] (test code = DINH MÁRQUEZ [place] 1538) [address] DBSIRELEBMFY3738-03-36 08:05:0011.0[facility] QwrxripXPIIZLLLIKXB1388-53-52 08:05:0057[facility] LpopftqMCTZDTKNPGEX5510-05-39 08:05:001.05[facility] BQTKFCZXWSGS0858-33-73 08:05:51788Zwppekzj XdmrafkUXDDTTIPWQMO8357-30-25 08:05:70474Zatuncgx HivripbNMVUFUWUNBLA2628-18-18 08:05:004.0[facility] [place] QAIIWHTHHOZL7542-47-00 08:05:007.4[facility] SbdsehnFWXLBNIUMIUT6727-26-12 08:05:0030[facility] LpfwduwBTYCOGAEUNTT8021-09-58 08:05:08753Utbehrgb Javier RGTZLKIJVABZ4874-53-56 08:05:0018[facility] MwdfhboHAGDFJDVIQ8707-54-91 08:05:00 0.4[facility] YxvzddzSLKSMLNDTJ8420-97-55 08:05:000.0[facility]annHEMATOLOGY 2016-01-04 08:05:000.4[facility] XrsbihpZLDETHNPSY4792-96-40 08:05:005.6[facility] XkhyjskUSOFAABKCR6991-32-09 08:05:000.7[facility] VpbzebgMGRZGODFXP9168-32-31 08:05:002.4[facility] RztdvekXPHWNSMLHU0586-13-80 08:05:0045.0[facility] HBYVSVWLSD6398-63-51 08:05:002.9[facility] LwonmvwSZEHMWUWTR5484-32-91 08:05:00 38.3[facility] CdlnstnUYJGNCSCRY6853-79-68 08:05:0010.7[facility]annHEMATOLOGY 2016-01-04 08:05:00Normal (01/04/16 3:05 AM)[facility] OoxcllaAJVLHGBGRL4037-67-89 08:05:00Normal (01/04/16 3:05 AM)[facility] UwkbhcoMERBHUKNLP0601-84-46 08:05:0014.9 [facility] HopdxliLKPRNEKOAY3081-58-92 08:05:14064Uvdtjlig HermannHEMATOLOGY 2016-01-04 08:05:00 Test Item Value Reference Range Interpretation Comments MCH (test code = MCH) 30.4 pg 27.0-31.0 [facility] ZfshsftWKLJFYPZFF3093-51-48 08:05:0033.4[facility]annHEMATOLOGY 2016-01-04 08:05:009.5[facility] GtsaplbPIYLOPJXMJ9328-17-76 08:05:006.3[facility] GzrbxreCPCNHFSXQE2598-03-56 08:05:0012.3[facility] IgdkoxhPWMUNTIGLE7837-33-84 08:05:0036.7[facility] JjqkkudKHXVRJVFZU7374-90-73 08:05:004.03[facility] KLNESDSLMS7706-84-88 08:05:0091.0[facility] HermannCHEM MSJNL0320-60-63 10:49:0022 [facility]annCHEM CPAXG4088-86-91 10:49:008.3[facility] HermannCHEM PANEL 2016-01-03 10:49:97095Jvkpqwua HermannCHEM QYNKH2025-12-03 10:49:004.3[facility] HermannCHEM YPHYX7853-64-02 10:49:56577Jwogxeqn HermannCHEM BTOON8523-61-52 10:49:006.3[facility] HermannCHEM SULHR8464-99-49 10:49:0056[facility] HermannCHEM RAOIW1022-66-18 10:49:001.0[facility] HermannCHEM ULBEL0569-46-34 10:49:0044 [facility] HermannCHEM XYUBQ9411-48-61 10:49:18470Dcuhgunz HermannCHEM PANEL 2016-01-03 10:49:001.29[facility] HermannCHEM PLROZ6861-38-22 10:49:003.5[facility] HermannCHEM TOELN6816-62-81 10:49:0030[facility] HermannCHEM TBQTI4861 10:49:21110Zcrazowr HermannCHEM LRANW2461-02-63 10:49:04817Dpmumyeq HermannCHEM KPCPD7287-51-81 10:49:002.8[facility] HermannCHEM OTOJQ2173-34-74 10:49:001.2 [facility]annCHEM CNXZT5818-82-74 10:49:0017[facility] HermannCHEM PANEL 2016-01-03 10:49:0014.3[facility] IbjtlemMLUPQBHUJE3497-47-57 10:49:000.0[facility] AncfbweHUPCNWJGKG1387-22-66 10:49:0076.1[facility] CfdtxqjLUYJPYXAOR9023-79-57 10:49:001.4[facility] JvaumgiGXUMNHCQQX0251-42-47 10:49:008.3[facility] [place] PYNSSCTPDV7298-44-91 10:49:000.2[facility] PstrqtcRGGULVIBGC6001-02-48 10:49:000.3 [facility] NmvqzfzTXKRVRRHNE2037-87-11 10:49:000.9[facility] HermannHEMATOLOGY 2016-01-03 10:49:002.4[facility] AbwlpbxVJIPWVYKJT0556-80-03 10:49:008.3[facility] NsmkrtuBURGOHKRKF5277-41-93 10:49:0013.0[facility] MhgrakkSBXXPIPPXT8739-09-32 10:49:001.03[facility] EqcmwvxYKYIZMEJWB7390-31-51 10:49:00 Test Item Value Reference Range Interpretation Comments PTT (test code = PTT) 30.7 s 22.9-35.8 [facility] WiavvzgSVLKEPYHNL6844-41-42 10:49:00 Test Item Value Reference Range Interpretation Comments PT (test code = PT) 13.8 s 12.0-14.7 [facility] PpckocyQDBIOXKFQB8042-08-75 10:49:009.0[facility] HermannHEMATOLOGY 2016-01-03 10:49:63861Agxdqyyw RispymeUSRFEHANCT8678-95-30 10:49:0010.9[facility] BzxnbzzKCBNYNKHZS6070-97-43 10:49:0013.6[facility] TmzhvwgKUGVHTQSWJ9859-60-43 10:49:004.44[facility] PyubmduOSPSDXHJQG8318-48-79 10:49:0014.3[facility] GJTIDBERUU1547-83-70 10:49:0033.8[facility] QveivsdHAYBSGHPVT2954-94-74 10:49:00 Test Item Value Reference Range Interpretation Comments MCH (test code = MCH) 30.6 pg 27.0-31.0 [facility] RohzzldBANDBLLHHJ9989-15-62 10:49:0040.2[facility] HermannHEMATOLOGY 2016-01-03 10:49:0090.6[facility] HermannURINE AND OOFUX5967-54-63 08:42:0015 [facility]annUR[facility] AND LPVFM6713-07-43 08:42:002[facility]ann[facility] AND FNADJ1842-14-96 08:42:002[facility]ann[facility] AND XUFAC5690-35-40 08:42:00 Negative (01/03/16 3:42 AM)[facility] AND BVVZE9763-33-66 08:42:00 Negative *NA*(01/03/16 3:42 AM)[facility] UUCYG4184-34-91 08:42:00 Negative (01/03/16 3:42 AM)[facility] YMQBI0672-14-51 08:42:00 Negative (01/03/16 3:42 AM)[facility] VANOL1673-28-65 08:42:005.0 [facility] AND NHDHW7231-52-04 08:42:00Marked *ABN*(01/03/16 3:42 AM) [facility] AND EEUAI0399-94-36 08:42:001.026[facility] HermannCHEMISTRY 2013-06-18 12:30:0021[facility] RqkelphCADXIOMVF6144-58-10 12:30:000.9[facility] BkxefxgKGFKXRGWO1293-29-15 12:30:0012[facility] QqctecuBTLZZSXSC7798-57-59 12:30:0012[facility] MaometwPSERGZQLQ9784-17-06 12:30:006.1[facility] [place] GDAFLPFZEU9513-20-90 12:30:007.7[facility] TdisbeoVBMNPKUKWI1569-85-40 12:30:00 33.5[facility] MtllaonAHGKKVMZQX9450-21-11 12:30:001.3[facility] HermannHEMATOLOGY 2013-06-18 12:30:002.9[facility] QpsrisoOAUSDKVAGL5436-12-70 12:30:0010.4[facility] VysschjPBDUNBCEVW4551-38-21 12:30:000.5[facility] VzcgttaPUYEHQQZVO1765-51-09 12:30:002.0[facility] IrmtruqYHUMYYOXRZ1012-30-00 12:30:000.6[facility] [place] GNLELRQHSN7231-64-03 12:30:000.1[facility] EprlvjtBVZBZZZMPQ9722-20-73 12:30:00 47.1[facility] GmlldicOYXWSXJXTG4841-24-59 12:30:0086.0[facility] HermannHEMATOLOGY 2013-06-18 12:30:009.6[facility] XxynsciZFXEKCCZWB6008-32-21 12:30:0028.9[facility] MmxebqqEEEFHNNDOQ5761-98-48 12:30:00 Test Item Value Reference Range Interpretation Comments MCH (test code = MCH) 28.8 pg 27.0-31.0 N [facility] KuxypeuMIADEBLRDH0846-24-42 12:30:0033.5[facility] HermannHEMATOLOGY 2013-06-18 12:30:006.1[facility] EbyhweuTNUDZGZZBC4874-49-47 12:30:003.36[facility] MgzugauRYKNEZFPXD5304-09-21 12:30:009.6[facility] LxauudiCITTGUPSXU0676-94-30 12:30:0016.4[facility] MrmpbyhRYKKSQJOEK4745-60-20 12:30:23780Qqdocmka [place] ENBDFNBBJB3619-66-15 12:30:0070[facility] IzcrrbeWLBRUCLEL0027-83-19 12:30:000.9 [facility] QajeqbqIPFSUZCLY1583-53-58 12:30:003.2[facility] HermannCHEMISTRY 2013-06-18 12:30:0013[facility] RcztcvuRKQYFYJIV8139-78-80 12:30:0012.6[facility] VpyhbfjUMXCMZGFQ5928-80-59 12:30:0069[facility] IlyaxysOOBNYHRNK8149-87-60 12:30:0090[facility] VbmbegcPXHGVWHAS7298-15-69 12:30:0073[facility] [place] KSOMNJXTY0813-87-35 12:30:002.9[facility] FlumzmhQESYUEVPQ7665-85-07 12:30:000.3 [facility] YkvyzenGBKGOWVJN8682-62-30 12:30:008.2[facility] HermannCHEMISTRY 2013-06-18 12:30:71564Njnrbgms IovwigrAZPZBVXIS8520-52-99 12:30:003.6[facility] FbjnkjoPERDWBSCE1450-96-58 12:30:0025[facility] BypckrwZFADOQJFY7089-61-71 12:30:00711Frzjqdxu GqfdywlGYDIQPVVJ8861-90-41 11:30:0011.2[facility] BJQCORTPA6653-96-24 11:30:957444Tbybifrk KarrkyiTUQXBAGPIY3402-79-13 15:45:34 <=1.0[facility] FrzdagfAIHRWABUHP3051-58-35 15:45:342[facility] HermannURINALYSIS 2013-06-14 15:45:347[facility] AptczofMOBDCRKKDO7286-64-23 15:45:34Negative (06/14/2013 09:45:34)[facility] MuzsufgTXRVMUIITD8847-37-67 15:45:344[facility] ZrnueygJSJNSUBPWK2265-12-78 15:45:34Negative *NA*(06/14/2013 09:45:34)[facility] BibjoopHBHWCFJRCV7006-34-13 15:45:34Negative (06/14/2013 09:45:34)[facility] HcccxanEOOLTSDLHC8484-98-00 15:45:34Negative (06/14/2013 09:45:34)[facility] GpctvbtVLJAHZLDWU5894-36-18 15:45:345.5[facility] VwthcdiYKRVEQHFNI9626-23-23 15:45:341.009[facility] NpfvyiiYIQJPXCRFR0851-17-70 15:45:34Clear (06/14/2013 09:45:34)[facility] FzdsajqQRXSQOMMLV1928-88-65 15:45:34Light Yellow *NA*(06/14/2013 09:45:34)[facility] XyfegknATCFTCZIS1172-17-72 12:00:0015.0 [facility] OcrmhwwBILTQPEKZ8166-47-01 12:00:003.4[facility] HermannCHEMISTRY 2013-06-14 12:00:0013[facility] GkwmlalRWVZZSSQE5777-77-65 12:00:000.8[facility] JswyyjtECFCZNMRB2738-50-98 12:00:0069[facility] NzapdokWPUTJPAJT2596-93-27 12:00:002.7[facility] KcdimciODDMZVOXB1815-47-83 12:00:0097[facility] DZYMUMBDL2928-49-24 12:00:000.9[facility] GjrgaffWZWQHHUJQ1203-70-25 12:00:0078 [facility] RjlikchLYSAQOKBF7588-91-75 12:00:0012[facility] HermannCHEMISTRY 2013-06-14 12:00:004.0[facility] MlwsshbMCNALTPIL0216-30-65 12:00:93503Mzlrolzt HxgazfcESJXBHZUR9377-46-69 12:00:0024[facility] RtcyykqPBTSXCIZE9004-07-53 12:00:008.2[facility] KxscmqzOZHIUZIOJ6767-79-68 12:00:12361Jrvmcshy [place] APLTHZDHO0970-96-10 12:00:000.3[facility] LimtgkuVOVKWSDMM1675-91-04 12:00:006.1 [facility] McogwieAKJJQHPTC2339-60-32 12:00:0017[facility] HermannCHEMISTRY 2013-06-14 12:00:0017[facility] QxphhadKCCVAPEAJD9936-74-99 12:00:001.6[facility] HkaslwwNSZZFCIRWD6616-47-15 12:00:000.6[facility] KpkcmvsTDVEECAKPC6801-45-12 12:00:000.7[facility] LobaaiuCRAGHMDNAO6774-07-80 12:00:000.6[facility] [place] ROEUWLXJGU1427-13-84 12:00:003.8[facility] VywucaiHQXXYKFOTU1744-75-17 12:00:000.0 [facility] MqauahnTWRCCHGXFS8795-92-04 12:00:009.1[facility] HermannHEMATOLOGY 2013-06-14 12:00:008.6[facility] VtjiumnUCXILSHUHX5297-97-94 12:00:0057.0[facility] CtptfsgOIWJFFMXMN7758-06-46 12:00:0024.6[facility] SkjnusbQWYJETRVVL8741-10-13 12:00:009.6[facility] OeiwiinXXVJPLCCRD1377-77-52 12:00:003.33[facility] CNIRWQNXDY8767-10-85 12:00:0028.5[facility] ZeppeoaGULQRKRJWB8930-35-54 12:00:00 6.6[facility] DkbbvuuMGVAUIHXUC1340-32-38 12:00:009.8[facility] HermannHEMATOLOGY 2013-06-14 12:00:48196Dnzxmrqx WqcrkdgZDAOPCNMKK8705-63-54 12:00:0016.0[facility] WyyxqlhIOELKXKPVX1519-47-79 12:00:00 Test Item Value Reference Range Interpretation Comments MCH (test code = MCH) 28.9 pg 27.0-31.0 N [facility] JgmtwawAWEFZDCOVY0166-44-42 12:00:0033.8[facility] HermannHEMATOLOGY 2013-06-14 12:00:0085.6[facility] SddkmflHGCHSUFFH1074-83-05 11:00:008.2[facility] OxrmuyzPQGVMFOWD0230-73-32 11:00:0069[facility] RommdpxSPIAFDMTC5494-43-81 11:00:85801Jougdmrh EnpkylwDDPRGEENK8334-17-17 11:00:004.0[facility] [place] JRKGYHFSC6946-70-98 11:00:0014[facility] XinevrvROAVZFVAF4981-21-04 11:00:000.9 [facility] ZfitnxgVGRBPVJIJ5418-94-06 11:00:0028[facility] HermannCHEMISTRY 2013-06-12 11:00:62886Oeewluto JotgspyLAAABIWZU0042-85-66 11:00:0082[facility] JtqxtqcPWIDIDNBN7458-63-11 11:00:0012.0[facility] IbnwhmhPPQLMQZOUX5703-85-30 11:00:00Slight (06/12/2013 05:00:00)[facility] WkbobbrJOZQIGPGVM8655-91-30 11:00:00Slight *ABN*(06/12/2013 05:00:00)[facility] HbtsvmxGRYKJECEPM7512-91-47 11:00:00Slight *ABN*(06/12/2013 05:00:00)[facility] RfwrzilGRUBRTRBPK4933-36-52 11:00:00Slight *ABN*(06/12/2013 05:00:00)[facility] TemncnsYXMARDDASK1106-12-83 11:00:000.8[facility] AkifvxpPFXFCJJYPX4722-22-12 11:00:000.5[facility] [place] BPCDISSROW8561-68-46 11:00:004.3[facility] DdqovmcZUIYAZJUIC0964-83-69 11:00:001.8 [facility] PzyaqsjAOLNLFAPZG0886-24-43 11:00:0057.7[facility]annHEMATOLOGY 2013-06-12 11:00:00Normal (06/12/2013 05:00:00)[facility]annHEMATOLOGY 2013-06-12 11:00:00Slight (06/12/2013 05:00:00)[facility]annHEMATOLOGY 2013-06-12 11:00:001+ *ABN*(06/12/2013 05:00:00)[facility]annHEMATOLOGY 2013-06-12 11:00:000.1[facility] DupomsgHUXMJLVZIL0306-65-93 11:00:000.8[facility] BspsqytPVGDAMJNYR6336-34-55 11:00:006.6[facility] CywpntwRJOYLXCSXS8399-56-96 11:00:0024.6[facility] MwetxfaDVHXRFGYJX7588-50-91 11:00:0010.3[facility] ZQPQKJAUIC6077-24-99 11:00:007.4[facility] NlmcdoqGQQWTWLEMZ8009-12-06 11:00:009.4 [facility] VvflgpgVEINZNQCNQ4534-88-71 11:00:003.21[facility]annHEMATOLOGY 2013-06-12 11:00:00 Test Item Value Reference Range Interpretation Comments MCH (test code = MCH) 29.3 pg 27.0-31.0 N [facility] NyxdgpuJDKOWODLXG8746-79-87 11:00:0087.7[facility]annHEMATOLOGY 2013-06-12 11:00:0028.2[facility] KhtlstaNXJUNTJXZI5401-00-45 11:00:009.5[facility] GgiuaveQGNVXDAPJF1754-97-43 11:00:0015.5[facility] MpojlzvCMQTPVSODW7568-64-98 11:00:0033.5[facility] QaacdlzIQXUVSVQOC3842-08-91 11:00:74600Qhahjygj Javier FATPYDGBQ2891-50-27 12:00:002.0[facility] DdqyzgkWFBSKCXOR0804-02-08 12:00:003.6 [facility]annB[facility] GLUCOSE XODWZPZ4360-44-09 00:15:[place] BEDSIDE GLUCOSE XPYFSTO3051-56-63 17:45:67374Tkiaevpy HermannBEDSIDE GLUCOSE SSWCTKE2157-38-97 11:47:67270Rwtucogc JxwgxjsLJZCEDDCH1666-80-70 11:40:002.1 [facility] DidqoczTCVBWYHZW4106-14-35 11:40:003.5[facility]annCHEMISTRY 2013-06-10 11:40:0080[facility] RqxqxyqRISRXJOZI0117-80-33 11:40:008.2[facility] NisreawGQDYWFETJ8989-94-48 11:40:009.8[facility] NanyowzRNYDLDNEF2855-19-32 11:40:0031[facility] JzbnhyjJXNGVBYBP9887-75-61 11:40:003.8[facility] MLOQYLTGC6100-85-33 11:40:23628Jbzkrdkc UafwwzgKANHBCSKF4472-08-86 11:40:000.8 [facility] FmahdvhCBAHMIUDM3311-54-34 11:40:99168Puvnjxfc HermannCHEMISTRY 2013-06-10 11:40:0018[facility] JqitxrhYRWWEAQYN9465-02-17 11:40:76931Gzgfdyuj MoudhlbHTCROCSUX8229-90-26 11:00:003.3[facility] XtptvcbMFHGOVLYW1020-62-58 11:00:007.9[facility] LiznbxoKYNOCRRLN2744-15-68 11:00:0030[facility] OGMFZHOMO6017-64-57 11:00:0012.5[facility] CzdmhsfIGJZWAUJV3559-35-62 11:00:0069 [facility] MusxlllUJJNITRMO9101-81-43 11:00:93506Kaclikgn HermannCHEMISTRY 2013-06-09 11:00:0017[facility] XbbgqcfJNNFEFXGA6908-72-36 11:00:22520Izlkfwgk NxiqpfwYQYICBBCT9232-85-92 11:00:000.9[facility] ZrxlqfvEOAMCOGRM0201-06-28 11:00:68414Mdbrmefb PxjzlzeHSJFEFTDT2167-17-09 11:00:003.5[facility] [place] EEVBJKACX0669-26-37 11:00:002.0[facility] CkxjtxvNSWJASXNWM9025-02-30 11:00:007.8 [facility] JmmqkfwUNPEXYKSA3924-73-16 12:00:74097Frwszuvw HermannCHEMISTRY 2013-06-08 12:00:0063[facility] IlbtlekRBDDOTOZF2649-63-08 12:00:007[facility] YcslbtlVIIBWGFGO5588-00-43 12:00:000.5[facility] HyctltgCSABCSTQW1969-68-46 12:00:0020[facility] OkfgtyzMVAUBSSQE1049-90-02 12:00:005.5[facility] [place] FGEZCKJLD7788-44-58 12:00:003.3[facility] WswvxbjGZKFWVCVV6400-35-27 12:00:000.7 [facility] FntyfsvBRSRJSIIS3178-78-00 12:00:002.[facility]annCHEMISTRY 2013-06-08 12:00:006[facility] PduwtrqIXQQZPPJFT3730-97-68 12:00:006.8[facility] NgbvyqwWGKFECDFJD5019-34-01 12:00:000.5[facility] LstkvihTINTPZXLQJ2225-44-97 12:00:004.1[facility] FhwmxydQRDRWROSWV9886-89-17 12:00:000.7[facility] NYTNJHOQSR7376-25-53 12:00:001.2[facility] QfwkborUBVBXZIKLK7192-93-59 12:00:008.0 [facility] ZlyajrmKXNWPQFHXD3365-54-79 12:00:0012.8[facility]annHEMATOLOGY 2013-06-08 12:00:000.0[facility] RqkxeiuAKNJDJIATD6464-16-56 12:00:000.4[facility] YdnpmrtPHHHDEFOMR9329-65-13 12:00:0074.6[facility] EmnmterZKERGHVWXC9125-21-78 12:00:0034.2[facility] XgalwkpWRBPEFOBJX7276-50-98 12:00:00 Test Item Value Reference Range Interpretation Comments MCH (test code = MCH) 29.0 pg 27.0-31.0 N [facility] NjfgvkbPXZEPIIDKX0090-02-15 12:00:0015.6[facility]annHEMATOLOGY 2013-06-08 12:00:009.9[facility] LowopsnKXWCZBQUHX4042-91-74 12:00:73294Dritzrab FmlhamgWZMOXIMKER1671-20-88 12:00:0084.8[facility] ClyvznbFEMCNCCLMO2960-79-96 12:00:0027.3[facility] NonserlJMCVAUMQLC5483-46-57 12:00:009.1[facility] [place] CCJDFBVXNF8688-15-78 12:00:003.21[facility] ZulczsxZGQRYSLBJO9242-86-00 12:00:00 9.3[facility] MpfidfqMDYFALICE2185-79-78 20:40:505554Osjjyaxr HermannCHEMISTRY 2013-06-07 20:40:354.7[facility] PksbxdbJYTOCILCYY2412-48-34 08:45:00 Test Item Value Reference Range Interpretation Comments aPTT (test code = aPTT) 33.8 s 22.9-35.8 N [facility] RjpdtycWONLZSVKWB7343-53-11 08:45:001.25[facility]annHEMATOLOGY 2013-06-07 08:45:00 Test Item Value Reference Range Interpretation Comments PROTIME (test code = PROTIME) 15.6 s 12.0-14.7 H [facility] KqakocnIVFVLVDYJS6909-78-70 08:45:51580Pucrpqqg HermannHEMATOLOGY 2013-06-07 08:45:009.7[facility] LiopcnfEBIUWOZYNH2244-27-62 08:45:0015.5[facility] NybkixkSAUADLVNNV3156-64-18 08:45:75511Glzndqce NpxmhgpHCWUDYKCET7126-07-22 08:45:00 Test Item Value Reference Range Interpretation Comments MCH (test code = MCH) 27.9 pg 27.0-31.0 N [facility]khuzycSXBXOCCSJL3945-37-91 08:45:0033.0[facility]annHEMATOLOGY 2013-06-07 08:45:0084.5[facility] GlqahtqEGMJHZDZSG1147-94-89 08:45:009.5[facility] MsrupkwVHZFBPWZPG9030-82-25 08:45:0028.7[facility] NrutioqNSIWYROVOJ1066-90-19 08:45:0011.0[facility] WobwlubRTIZFXPNIK4086-44-83 08:45:003.40[facility] [place] [facility] WVNVCYV0928-77-51 18:03:00Product available (06/06/2013 12:03:00) [facility] LeqywkoMOTQXRSCHP7037-96-55 09:45:53 Test Item Value Reference Range Interpretation Comments aPTT (test code = aPTT) 36.6 s 22.9-35.8 H [facility] KilzucdSGPIZXZJM8077-62-40 09:30:0019[facility]annCHEMISTRY 2013-06-05 09:30:003.0[facility] XdptdjsSAXJZCQJP2345-71-42 09:30:0014[facility] IdntiqdZOZFMMOUE3019-54-30 09:30:005.7[facility] McybxueWBPOCOBPN6609-15-23 09:30:000.5[facility] RwhcomiEMTSHMVCB5478-28-55 09:30:008[facility] IISPHNTYV5882-63-39 09:30:001.1[facility] KnluukwYJPSUWYJH7559-62-90 09:30:002.7 [facility] AgprgyeIIWIHCGAS7970-37-51 09:30:0051[facility]annHEMATOLOGY 2013-06-04 21:45:0112.9[facility] EclinexEGPXYWRPPG3084-43-61 21:45:0171.0[facility] PcwgdloKSQXBCEERQ2093-18-85 21:45:017.0[facility] UbifgwsNMXKQQCXUL1999-04-16 21:45:012.6[facility] TokdcgtJAUZWLUKEP5215-45-67 21:45:010.5[facility] [place] KXHEMHIFMR5162-63-67 21:45:010.5[facility] SkfdvqlKJGAHHOSYV4535-13-86 21:45:01 Slight *ABN*(06/04/2013 15:45:01)[facility] WveuxldFRPNBHTPUA0990-64-03 21:45:01 3.0[facility] VqtvzbbEVQRTLYBUR3094-28-04 21:45:013.0[facility]annHEMATOLOGY 2013-06-04 21:45:019.0[facility] TzuqmeuOESGJVEVNV7738-46-85 21:45:017.0[facility] WtgsbspMUILNJQBOJ4468-40-80 21:45:01Normal (06/04/2013 15:45:01)[facility] BLOOD BANK ICVKGKT8112-19-32 18:06:00Product available (06/04/2013 12:06:00) [facility] BXYJRGV3430-20-95 11:45:00Negative (06/03/2013 05:45:00)[facility] EylbgyuHVWQIRARO6127-82-11 16:50:001.32[facility] [place] GBKJDYCBB5307-17-03 16:50:008.430[facility] FgrwqqyBDHVAAJWG6122-37-44 16:50:009.0 [facility]annBEDSIDE GLUCOSE UTUTDOR1610-48-22 16:25:0095[facility] [place] BEDSIDE GLUCOSE OARWDWM8902-63-29 13:37:49660Lsfcgtcq YbtcdudLVAEZZGYD1683-17-79 11:00:001.6[facility] BaiiwlnSTTRWFFLO5043-43-04 11:00:001.2[facility] [place] PQPAIIEBO7252-94-74 11:00:0019[facility] SybqqibKIVNWEXRO5923-41-39 11:00:0094 [facility] JgulwspUMLVGVXMM1685-71-74 11:00:007.9[facility]annCHEMISTRY 2011-09-21 11:00:003.9[facility] UjnfrwzLETETGVQV9059-30-45 11:00:98687Uzogwqfi ByhgckwMJICDLUCN3202-60-01 11:00:0024[facility] IwfcwpgJBOFVZKDE8173-59-04 11:00:04803Qkmfdskg MhigppsQEQQVXHNR7280-32-92 11:00:0015.9[facility] [place] ZJHPHRIRYY4433-43-41 11:00:000.9[facility] HtiytqkYNGFVPYCMW4066-90-69 11:00:000.6 [facility] YfuijzkTQUBIVXDLB1999-45-05 11:00:000.0[facility]annHEMATOLOGY 2011-09-21 11:00:001.9[facility] CgbxjuyUQPDHTWTZK6066-26-91 11:00:006.7[facility] KezdamoQLWULUEULV8003-15-98 11:00:000.4[facility] OmnkssfKQPMJKSCSV0371-65-00 11:00:004.9[facility] AverrviHKVHSSUQBG2122-52-16 11:00:0022.7[facility] HRLTKPRAXS6720-39-89 11:00:0010.5[facility] HtppppaLTEEITLBCL0987-03-77 11:00:00 59.7[facility] QtkbsaaJPYTJMIQSS1453-24-02 11:00:003.15[facility]annHEMATOLOGY 2011-09-21 11:00:008.2[facility] GshlpsbFOBBTHHRKF3527-99-34 11:00:0028.1[facility] NmzgyuoZTQGVTEIOC0208-60-10 11:00:0014.5[facility] AstiorpLVSVWXOFOZ4652-05-65 11:00:00 Test Item Value Reference Range Interpretation Comments MCH (test code = MCH) 30.3 pg 27.0-31.0 N [facility] CbhjrzrLUOQFNAXYU5068-33-03 11:00:0089.4[facility]annHEMATOLOGY 2011-09-21 11:00:0033.9[facility] YdleupmTMQURTZJMS7928-21-92 11:00:009.5[facility] EfmeoebKTPHLDNXPO5942-42-62 11:00:009.1[facility] SnimsymPYRTKCAZPK0914-78-52 11:00:84457Yvlifama PtynafzZULXFCGUHC5375-16-85 11:00:00 Test Item Value Reference Range Interpretation Comments PTT (test code = PTT) 29.9 s 22.9-35.8 N [facility] NsouataTGXUHLDUWI9811-92-66 11:00:001.23[facility]annHEMATOLOGY 2011-09-21 11:00:00 Test Item Value Reference Range Interpretation Comments PT (test code = PT) 15.5 s 12.0-14.7 H [facility] ETHCMMK2007-72-05 02:46:0097[facility] AHEBVDZMN1797-71-81 10:38:001.7[facility] QqqthlfYLZGCDEIG1026-25-14 10:38:0017.4 [facility] IyoiedoDKXZCOQAC3966-98-48 10:38:16134Zwjyjfii HermannCHEMISTRY 2011-09-20 10:38:0020[facility] JvacbkhLBGJFFBSV7851-52-54 10:38:69150Yblkdezz XqdmopmJWKRDEHAM6210-03-39 10:38:003.4[facility] SptfhraAMYTJTOFB6206-65-60 10:38:001.3[facility] HhjkhuaMXYRFVNLA4091-78-24 10:38:008.1[facility] [place] TNAXHCHUI3867-46-66 10:38:0023[facility] RafnatvLLDJIAXUH3003-14-67 10:38:83032 [facility] LlutgwcYGCUJVOAE4248-92-65 10:38:0028.0[facility] HermannCHEMISTRY 2011-09-20 10:38:009.9[facility] YbjdlbjVHWPIPACJ2745-47-38 10:38:000.64[facility] CvpohnqFCMPVMSGGB7607-77-36 10:38:001.18[facility] FaipnyyVAIWJYVAWJ7199-38-60 10:38:00 Test Item Value Reference Range Interpretation Comments PT (test code = PT) 15.0 s 12.0-14.7 H [facility] DerdgsfWCZXQCYLBD1435-20-68 10:38:00 Test Item Value Reference Range Interpretation Comments PTT (test code = PTT) 32.0 s 22.9-35.8 N [facility] AmvggbbDNQQDIYPLH9470-29-73 10:38:0014.8[facility] HermannHEMATOLOGY 2011-09-20 10:38:0033.5[facility] NiokkkeDGTZZYBEJF4179-05-93 10:38:89166Sdtmwmms BexczsoFOHLFGUIHY8042-56-11 10:38:008.7[facility] TzaikgyVYPRPJTAIO8100-62-72 10:38:003.70[facility] LyonndaEWCIDWSEAU6439-59-87 10:38:007.5[facility] ILJALDQFSQ7204-04-82 10:38:0011.0[facility] DezxajjXDBNXRNAPZ5714-19-70 10:38:00 33.0[facility] EecufhoQRQFYAUUDT0226-37-35 10:38:0089.1[facility] HermannHEMATOLOGY 2011-09-20 10:38:00 Test Item Value Reference Range Interpretation Comments MCH (test code = MCH) 29.8 pg 27.0-31.0 N [facility] KcgtiuaUEJFZIAVUC8372-37-09 10:38:000.0[facility] HermannHEMATOLOGY 2011-09-20 10:38:000.6[facility] AqvjlwxLUFXSTRHWF9887-49-68 10:38:0021.8[facility] EbnjzpjTDTGZLFYXP2157-48-31 10:38:0062.1[facility] AmrixlnAJXFDTCTNW5092-18-60 10:38:000.6[facility] KwvxvvjGHCXFXCOUC2073-34-62 10:38:001.6[facility] [place] BNAJUEZPHH4821-65-36 10:38:004.7[facility] VmmxmspRQKMSPSLAB0223-48-71 10:38:000.3 [facility] LqbwqlxNBYIPZBGNT1604-26-71 10:38:007.7[facility] HermannHEMATOLOGY 2011-09-20 10:38:008.1[facility] NylygsiLHNMTALVZ3231-24-66 11:00:001.8[facility] SntypblHVQGGSFZX8783-20-78 11:00:78356Zqxxzkyc CkrzpxoPHZUDYNXO2838-58-71 11:00:003.5[facility] XtaunyeRIAPRIROA8499-94-47 11:00:001.3[facility] [place] YKPIQMNYW0127-71-76 11:00:52074Wylrzimd TnsahkzKZJYGXVNQ4084-29-84 11:00:0022 [facility] SqkbfohAOQXDJHDI6402-48-70 11:00:0015.5[facility] HermannCHEMISTRY 2011-09-19 11:00:008.0[facility] GlyusirBOMYLEQWR7279-82-03 11:00:0031[facility] HssxtouGZDXTNLUC4005-60-14 11:00:0090[facility] ZjhuannMTFNTWPISE7264-59-93 11:00:006.0[facility] JkuklbgQGKBDWXUHM5074-93-01 11:00:000.8[facility] [place] LIQBJSJDHE1126-05-28 11:00:001.7[facility] YnruliqEYYSXFYKCL0382-57-84 11:00:000.6 [facility] KbgmrklUROTSIVKKP6826-82-34 11:00:008.5[facility] HermannHEMATOLOGY 2011-09-19 11:00:0018.2[facility] FqvnbvmXUFWUGTEHN7549-11-93 11:00:000.4[facility] CxujztaSNLTGAYTIJ0981-65-69 11:00:006.7[facility] UfqdtpgKIPMCFIXIH8137-40-23 11:00:000.0[facility] SayyxsaMMWYAORIWT8260-75-29 11:00:0066.2[facility] FNQFNFYWCZ2030-01-67 11:00:0089.3[facility] FwcafyrHDRGHZWPAD5753-41-44 11:00:00 31.0[facility] NeynybvBQJDBPYWMH8788-64-70 11:00:003.48[facility]annHEMATOLOGY 2011-09-19 11:00:0010.5[facility] ZyjmxgrZPZIMCZDQN0958-29-09 11:00:00 Test Item Value Reference Range Interpretation Comments MCH (test code = MCH) 30.1 pg 27.0-31.0 N [facility] YqctgdsFRGMKDMTSR3244-23-32 11:00:35783Duqokomo HermannHEMATOLOGY 2011-09-19 11:00:0014.7[facility] ElffiajAZVMWGWXUG1480-49-92 11:00:008.3[facility] SckviawMDKKOWVCQY3286-73-61 11:00:0033.7[facility] KszuhodHQUQUZRDZN0849-71-06 11:00:009.1[facility] MxcqxudOHJAPTDFRH4742-71-73 11:00:001.22[facility] [place] ALJYJNDPJD6663-59-89 11:00:00 Test Item Value Reference Range Interpretation Comments PT (test code = PT) 15.4 s 12.0-14.7 H [facility] XpsduvzIWNAPTPAWL6734-02-73 11:00:00 Test Item Value Reference Range Interpretation Comments PTT (test code = PTT) 30.7 s 22.9-35.8 N [facility] YglbmzvLUCUESIZK3417-08-16 18:20:237319Nqqlwbbj HermannCHEMISTRY 2011-09-18 18:20:003.5[facility] SvpxlycAYZOGMPEWX3885-96-43 11:50:00Normal (09/18/2011 06:50:00)[facility] QbrbeqhEAMVZYLXZJ7860-94-86 11:50:00Slight (09/18/2011 06:50:00)[facility] McizsxlEIQDLTOVRE5994-22-04 11:50:00Slight (09/18/2011 06:50:00)[facility] BvfhjstCHDCPSSTR1509-08-96 10:30:002.9[facility] CrrxesiBZUDHDHKDV5682-71-63 10:30:00>=20 ug/ml *ABN*(09/17/2011 05:30:00) [facility] HdnphssCTXBJZHUA5108-16-38 11:04:00NC (09/16/2011 06:04:00)[facility] PzdjiezSFOYCRKRE1982-53-05 11:04:00Positive (09/16/2011 06:04:00)[facility] FuplmulDXMURLXVS5837-55-57 11:04:003.5[facility] JdgfmxkALQSPMEYX0275-93-54 11:04:00Right Ra (09/16/2011 06:04:00)[facility] UpsykiuTPDOQGEGS7505-95-47 11:04:0096.0[facility] HlbfuisPWGPGCBNP3253-46-73 11:04:0037.0[facility] [place] TVRYROEUU8843-63-53 11:04:00-1[facility] IpnvwqgFQSUXZZDC3430-27-18 11:04:0037 [facility] HqqcoofATRBOFSTI8352-00-98 11:04:007.41[facility] HermannCHEMISTRY 2011-09-16 11:04:0078[facility] HcbqloyCOQWQDAMS5325-17-10 11:04:0024[facility] WosubbvGMHBWABTT2025-72-08 08:15:000.9[facility] CgxszlaOPASJOCPU1520-30-77 08:15:003.0[facility] NnvzntbKEEBRLBQE3370-88-38 08:15:0026[facility] [place] JXDBFROXN4779-43-21 08:15:008[facility] UxdjxzkNJAYMKJOX1164-27-49 08:15:000.7 [facility] FbdzmrhTQGOSKVIH8429-85-90 08:15:0052[facility] HermannCHEMISTRY 2011-09-16 08:15:002.8[facility] CnxnzyvHFNVEWFMI1644-08-92 08:15:005.8[facility] BoxvcpmIKGHUJCOR5752-01-97 08:15:0012[facility] MdfdelkZVEFQMYAX1227-17-14 08:15:54436Alaystvr QncawbeLVWFKWXKO2625-60-50 08:15:002.7[facility] DPMYRWRHNG6808-10-77 08:15:00>=5[facility] WwmqonrETQEUIJSP6995-02-17 11:08:00 36[facility] BqpnzwlUABVTEVJP8650-38-22 11:08:007.39[facility] HermannCHEMISTRY 2011-09-15 11:08:38036Fhbrxjle IdruscfLYZDNIQZL2201-21-77 11:08:0037.0[facility] IypyfuyRHPWVYHMP8267-67-16 11:08:00Right Ra (09/15/2011 06:08:00)[facility] LucgbarVNINCHSVN0832-84-57 11:08:00Positive (09/15/2011 06:08:00)[facility] RmojobyAKMFXSABV2884-97-86 11:08:00-3[facility] GeupeumXWUMVXWAK4842-21-97 11:08:0022[facility] MlwqufaFBXCPIUPY3204-74-71 11:08:00A/C (09/15/2011 06:08:00) [facility] KsuusfkQMWAUKHFE9173-25-01 11:08:0098.0[facility] HermannCHEMISTRY 2011-09-15 11:08:0040.0[facility] FoerbdlAOGHCTFBF8478-22-58 08:00:000.9[facility] UlnvexjQRBJRXBJR6986-90-80 08:00:32966Umsqlram CjoygokWFWPNXULD0961-24-40 08:00:000.03[facility] BkeizpuZTRVCTPVC3944-57-65 08:00:002.9[facility] [place] AHBWHHMFO5020-16-30 08:00:004.08[facility] JdoggdnKFHRTQUAE7425-72-32 08:00:004.04 [facility] SezcqzjPUGLNDNCU8059-29-65 08:00:001.01[facility] HermannCHEMISTRY 2011-09-15 08:00:001.02[facility] HzhxxhjDWWSGAXFX2607-26-99 08:00:000.2[facility] ZzpammcIDCHSXGPB6688-00-91 08:00:009.2[facility] BdelccsAYXQXRKTM2026-87-74 08:00:64165Ulaynjho YpvjmmdZONTOXSLWT5908-60-82 08:00:00>=5[facility] YHTZZJCKX0515-01-75 21:30:001.2[facility] XisrzscXKSQUAYPE9504-27-18 21:30:87414 [facility] YhmylamGJEPMRBYD8069-29-68 21:30:000.04[facility] HermannCHEMISTRY 2011-09-14 21:30:000.1[facility] HermannBLOOD BANK WYOSGNR2146-65-04 14:07:00 Product available (09/14/2011 09:07:00)[facility] HermannBLOOD BANK RESULTS 2011-09-14 14:05:00Negative (09/14/2011 09:05:00)[facility]annCHEMISTRY 2011-09-14 14:05:002.0[facility] EfojmziBPKNSZWJX5434-51-08 14:05:894961Apuhgozp NcgswahAMBBABNQI7250-04-79 14:05:000.05[facility] ScxgkzgUCUEITWEU0557-24-30 14:05:000.2[facility] EinxuqbPUWGEBRGT7489-75-19 14:05:001.01[facility] [place] RPDYGQZTO3926-19-61 14:05:001.51[facility] OhybzvsZIRVVGVVI2910-72-57 14:05:00 4.590[facility] OsquxsiACBQSIWUM4618-38-88 09:29:0022[facility] HermannCHEMISTRY 2011-09-14 09:29:00A Line (09/14/2011 04:29:00)[facility]annCHEMISTRY 2011-09-14 09:29:0096.0[facility] SxyyqqcNYGTQWCQP4409-33-24 09:29:00A/C (09/14/2011 04:29:00)[facility] FqkkavdRDZAEHIHM9712-28-90 09:29:0037.0[facility] YocfyjqBXZRVYYXW5036-14-49 09:29:90805Ntynodds TwwabudXBYMJTMGY6677-47-12 09:29:005.0[facility] IjxvamiBJFCQWMQL3595-19-09 09:29:0040.0[facility] [place] BCMSRJDFY6546-29-41 09:29:0086[facility] UwhvyahUOWABPZAU1928-21-99 09:29:00-4 [facility] MqhycsaKMKLWMTZR9482-95-63 09:29:0038[facility]annCHEMISTRY 2011-09-14 09:29:007.36[facility] PfvsmkjZUYPPXIFZ1196-32-68 09:00:003.3[facility] EyujaqrMDTKFRMYS2567-48-10 09:00:001.00[facility] EqehbepPKSWWOIJD4743-78-21 09:00:000.98[facility] SbhqeqnDUABZJFPS5067-68-92 09:00:004.00[facility] [place] EUNPDIJSX7271-17-65 09:00:003.92[facility] JyrarsgATYVDJMMP7381-06-05 09:00:11531 [facility] RyprxohCRYHQEAQN8703-38-74 09:00:000.9[facility] HermannCHEMISTRY 2011-09-14 09:00:0082[facility] XzwisgtGKYTBIRAS0247-36-12 09:00:0035[facility] DwgggwmRJAECNDFA3442-31-35 09:00:000.6[facility] CwrkyqaWNLQNKAMX2463-34-28 09:00:0013[facility] WjgrxnrOVLBQBVYY4642-35-78 09:00:001.3[facility] PRYUEFKNA4131-31-84 09:00:002.3[facility] ZqgisbcTAMHUVQSV7855-76-20 09:00:003.0 [facility] WgyshayIBJTHJDYG5408-12-02 09:00:005.3[facility] HermannCHEMISTRY 2011-09-14 09:00:0054[facility] MambtipPLFONVFPA3536-31-51 09:00:008[facility] FefjyvkQRMTWGXBDP4108-16-23 09:00:008.1[facility] VmbzozzKEALCVXHJS0431-20-55 18:00:00Negative (09/13/2011 13:00:00)[facility] StsbwvjPXUQCBWTTL8295-47-98 18:00:00 Test Item Value Reference Range Interpretation Comments Pos CO Value (test code = Pos CO 0.403 1 Value) [facility] JlguypiEXRHXSJWLY4749-68-95 18:00:00 Test Item Value Reference Range Interpretation Comments Pat Od Value (test code = Pat Od 0.058 1 Value) [facility] NbpzxvnLLDQIPKJG7780-34-05 10:45:0060.0[facility] HermannCHEMISTRY 2011-09-13 01:30:003.40[facility] PupoyfmQSACQFVPG5862-79-54 01:30:000.87[facility] EvalweoGDRHXJRBE4255-73-77 01:30:000.85[facility] DlecnxeJCHKBOYSM9531-85-51 01:30:003.48[facility] PzxfofjDZBRFFBCC6419-56-08 11:03:00N/A (09/12/2011 06:03:00)[facility] NqfeijdMZRSZJONZ4165-29-96 11:03:0012[facility] HermannCHEMISTRY 2011-09-12 11:03:25007Preyrzzr YtigylbRQPIDAQWY9176-76-11 11:03:005.0[facility] VfrdrmdSMDLQTGTDU8679-42-10 09:00:00Slight *ABN*(09/12/2011 04:00:00)[facility] MiqicmbTOUPBAVIOY6858-60-40 09:00:00Normal (09/12/2011 04:00:00)[facility] [place] VDLTFLFFV8654-19-60 22:21:0010[facility]annBLOOD BANK DMASPRI5581-39-86 20:35:00Product available (09/11/2011 15:35:00)[facility] HermannCHEMISTRY 2011-09-11 18:30:0050.7[facility] VnziekmJHHTHMNJV8158-93-94 18:30:0012[facility] UhaevmrUSALRIGXF5043-53-86 18:30:00<10[facility] OiqbsapDBPJFXSKRJ7260-19-42 18:30:00<=1.0[facility] BnvprfoHNRNGORNII4354-64-28 18:30:006[facility] DAOEDHJVUL9351-42-21 18:30:00Performed *NA*(09/11/2011 13:30:00)[facility] PTERKPQNVJ7776-81-27 18:30:00Negative *NA*(09/11/2011 13:30:00)[facility] SDDEUKSQNK3258-22-97 18:30:0010 mg/dL *ABN*(09/11/2011 13:30:00)[facility] ZLTMTRXXGR0305-83-53 18:30:0030 mg/dL *ABN*(09/11/2011 13:30:00)[facility] JHNFSCEUQM9535-03-00 18:30:0070 mg/dL *ABN*(09/11/2011 13:30:00)[facility] NUGIGAUHHL5297-15-57 18:30:00Moderate *ABN*(09/11/2011 13:30:00)[facility] SHSHPYWZZY3394-69-56 18:30:00Many /HPF *ABN*(09/11/2011 13:30:00)[facility] HospitalCpfimdhZLKNJTSHXC7026-37-03 18:30:00Few /LPF *NA*(09/11/2011 13:30:00)[facility] QcmtcyiFNVLOKAJJT2110-37-27 18:30:00Moderate *ABN*(09/11/2011 13:30:00)[facility] NfsvermGIKKAAQVOI0599-15-87 18:30:00Negative (09/11/2011 13:30:00)[facility] OqjoxjeQLSPWIZMEF4906-45-73 18:30:00Many /LPF *ABN*(09/11/2011 13:30:00)[facility] ExckaoeAYDYBKGISK8616-09-76 18:30:0017[facility] FcjfhntHBBWFWYTTH4769-85-94 18:30:89335Ihvnrrxq GebxmrqOTPPFULEAF4273-70-05 18:30:006[facility] EONLDVMJOX9565-18-58 18:30:00Occasional /HPF *NA*(09/11/2011 13:30:00)[facility] VpxtjlrQAPHYTHXRV2765-19-71 18:30:00Yellow *NA*(09/11/2011 13:30:00)[facility] PimuklnANKROHLKHU6606-87-91 18:30:001.038[facility] KeyrkjjZLLZMOUVWT2944-32-91 18:30:00Marked *ABN*(09/11/2011 13:30:00)[facility] QmhebdmMYDQLBSFNF0025-34-62 18:30:005.0[facility] MjdppynLQXKXHEQC4727-61-85 16:35:006[facility] WHXUUNSWO8112-90-99 16:15:001.450[facility] YrmcuefQPGTVVHPP0329-65-24 16:15:00 15.3[facility] HermannBACTERIAL - OFJKYROT6269-49-63 15:05:00Negative 1(09/11/2011 10:05:00)[facility] HnzmgcoOKTYQZLQG4400-01-12 14:05:002.0[facility] HermannBLOOD BANK DXTWUIE2627-81-52 13:26:00Product available (09/11/2011 08:26:00)[facility] UnizvbaUKEDLTUZX5385-70-08 11:30:0046[facility] EzqjnbdHGDWZKXDB9133-76-29 11:30:000.7[facility] RlbqxreMNJYZWFAT6783-53-33 11:30:002.0[facility] PJSWLBDUT5552-38-16 11:30:001.6[facility] QmdtpywPZVUZEHAY0281-28-37 11:30:0040 [facility] YkfpeuoKRSTIJGIT9950-69-66 11:30:0012[facility] HermannCHEMISTRY 2011-09-11 11:30:003.1[facility] VpykuusSLVBUYBXQ8424-16-18 11:30:005.1[facility] ReojhjtIUKCZCPMD2624-82-57 11:30:007[facility] CtochuiNNFIIVVQS2630-83-78 11:30:00 1.6[facility] LugwjccWHIWNOXZHP1818-97-32 11:30:00Slight (09/11/2011 06:30:00) [facility] GnwvtuvCKZVRMDYFG9673-56-84 11:30:00Slight *ABN*(09/11/2011 06:30:00) [facility] IxmcpftNCKKTUNCCN4489-60-85 11:30:00Slight (09/11/2011 06:30:00) [facility] IchhnteMGIMWKPBBT7860-63-10 11:30:00Normal (09/11/2011 06:30:00) [facility] DDZXARR1830-90-16 05:10:00Negative (09/11/2011 00:10:00)[facility]
--- NOTE | 2020-12-01 16:29 | ER ---
Nurse's Notes [facility] Name: Margarita Carl Age: 70 yrs Sex: Female : 1950 Arrival Date: 12/01/2020 Time: 14:38 Bed Waiting Private MD: Diagnosis: Presentation: 12/01 14:38 Chief complaint: Patient states: "I truly believe it's anxiety but I haven't been on my sv medication for it in months." Pt wears home O2 but did not come with it. Coronavirus screen: Client denies travel out of the [place] in the last 14 days. At this time, the client does not indicate any symptoms associated with coronavirus-19. Ebola Screen: No symptoms or risks identified at this time. Risk Assessment: Do you want to hurt yourself or someone else? Patient reports no desire to harm self or others. Onset of symptoms was December 01, 2020. 14:38 Method Of Arrival: Ambulatory sv 14:38 Acuity: AMENA 3 sv 14:39 Initial Sepsis Screen: Does the patient meet any 2 criteria? RR > 20 per min. No. sv Patient's initial sepsis screen is negative. Does the patient have a suspected source of infection? No. Patient's initial sepsis screen is negative. Triage Assessment: 14:40 General: Appears in no apparent distress. uncomfortable, Behavior is cooperative, sv anxious. Neuro: Level of Consciousness is awake, alert, obeys commands. Respiratory: Respiratory effort is even, unlabored, Respiratory pattern is tachypnea. Historical: - Allergies: 14:39 Adhesives; sv 14:39 Demerol; sv - PMHx: 14:39 Anxiety; Hypothyroidism; bowel obstruction; Depression; dementia-early stages; sv insomnia; Seizures; - Immunization history:: Adult Immunizations up to date, Client reports receiving the 2nd dose of the Covid vaccine, Client reports receiving the 1st dose of the Covid vaccine. - Social history:: Smoking status: Patient denies any tobacco usage or history of. Vital Signs: 14:39 BP 112 / 93; Pulse 90; Resp 26; Temp 98.7; Pulse Ox 96% on R/A; Height 5 ft. 0 in. sv (152.40 cm); ED Course: 14:38 Patient arrived in ED. sv 14:39 Triage completed. sv 14:39 Arm band placed on. sv Administered Medications: No medications were administered Outcome: 16:29 Patient left the ED. sv Signatures: Ally Cancino RN RN sv Corrections: (The following items were deleted from the chart) 14:40 14:39 Resp 26bpm; Pulse Ox 96% RA; Temp 98.7F; Height 5 ft. 0 in.; sv sv
[2020-12-01 16:53] VITALS: BP 112/93; TEMP 98.7; O2SAT 96
== END 2020-12-01 16:29 | disposition left against medical advice (07) ==
LOC: ER 14:32
DX: Z53.21 Procedure and treatment not carried out due to patient leaving prior to being seen by health care provider (principal)
CPT/HCPCS: 99281